=== PATIENT | female | born 1965 | race Caucasian/White ===

== ENCOUNTER 2017-08-28 09:31 | Outpatient (RCR) | payer MEDICAID, SELFPAY ==
--- NOTE | 2017-08-28 10:45 | HP.OTEVAL ---
Patient's Visit Information ALEXEI FOWLER is a 52 year old F, referred to Occupational Therapy by Sofy Richter DO,, with a diagnosis of Left IF laceration. Date of Evaluation: 08/28/17 Occupational Therapist: AISHA Henao/Vern, CHT - Subjective Subjective: Pt states Aug 11 she cut her left IF, she went to the ER and she had 1 stitich - pt states she has decreased sensation and limited ROM -pain is also limiting her. - Pain left IF 3 Pain Intensity Range: 3, 7 - ROM MP: Right IF 0/85 left 0/55 PIP: Right IF 0/100 left 0/45 DIP: Right IF 0/40 left 0/30 - Strength Turret Punch Operator: Right 55# left 30# Lateral Pinch: Right 8# left 4# Tripod Pinch: Right 6# left unable - Sensation Thumb: right 2.83 left 2.83 Index: right 2.83 left 4.08 Middle: right 2.83 left 2.83 Ring: right 2.83 left 2.83 Little: right 2.83 left 2.83 - DASH-Disabilities of Arm, Shoulder& Hand DASH Sum: 57 - Goals Goal:: pt will demo a increase in left outside sales representative insurance strength to 35# or greater to increase her ind with BADLS and IADLS Goal:: pt will demo the ability to form a composite fist for daily occupations by d/c Goal:: pt will report pain no greater than 2/10 with use of left IF for BADSL and IADls - Rehabilitation General Assessment: pt demo with limited left IF ROM and outside sales representative insurance strength for use of left hand for BADls and IADLS. pt would benefit from skilled OT services to return pt to PLOF Rehabilitation Potential: Excellent - Anticipated Interventions Anticipated Interventions: A/AAROM/PROM, Strengthening, Scar Care, Triggerpoint Release, Desensitization, Sensory Retraining, Modalities - Visit Plan Frequency: 1-2x /Week Duration: 6 Weeks General Plan: increase pt ROM and strength to return pt to PLOF TEXT: Thank you for the opportunity to evaluate your patient. For Medicare and Medicare HMO plans, please review the plan of care and approve it. It will need to be FAXED BACK to us at [phone] for Medicare purposes. Please let me know if there are questions or concerns regarding this plan of care. Physician Signature: Date:
--- NOTE | 2017-11-07 14:45 | HP.OT.NRP ---
HP - Discharge Summary - Patient Information ALEXEI FOWLER was seen in my office for initial evaluation on 08/28/17. The following Plan of Care was established for this patient: Initial Frequency: 1-2x /Week Initial Duration: 6 Weeks - Anticipated Interventions Anticipated Interventions: A/AAROM/PROM, Strengthening, Scar Care, Triggerpoint Release, Desensitization, Sensory Retraining, Modalities This patient was last seen in our office 08/28/17. Pertinent comments regarding their Occupational therapy will appear below: pt seen for inital OT visit only- pt did not return for any follow-up apts and has not scheduled. Pt D/C due to non attendance At this point I will be discontinuing this patient from occupational therapy. I would be happy to see this patient again in the future if found appropriate by the physician. Thank you! Rubi Gallego, OTR/L, CHT
== END 2017-08-28 19:00 | disposition home or self-care (01) ==
LOC: OT 09:31
PROVIDERS: Family Provider Family Medicine; PCP Family Medicine; Visit Provider Family Medicine
DX: S61.211D Laceration without foreign body of left index finger without damage to nail, subsequent encounter (principal)
CPT/HCPCS: 97166; G8987; G8988

== ENCOUNTER → 2018-02-12 14:09 | Outpatient (CLI) | payer MEDICAID, SELFPAY ==
[2018-02-12 15:38] LABS: ALB/GLOB Ratio 1.1 RATIO (0.9-2.4); AST(SGOT) 30 U/L (15-37); Alanine Aminotransfer ALT/SGPT 22 U/L (13-56); Albumin, Serum 3.9 g/dL (3.2-5.0); Alkaline Phosphatase 104 U/L (45-117); Anion Gap 9 (5-15); BUN 15 mg/dL (7-18); BUN/Creat Ratio 16.9 RATIO (10-20); Calcium,Total 8.6 mg/dL (8.5-10.1); Chloride 104 mmol/L (98-107); Creatinine, Serum 0.89 mg/dL (0.55-1.02); EST Glomerular Filtration Rate 71 mL/min (>60); Est Glom Filt Rate - Afr Amer 86 mL/min (>60); Globulin 3.6 g/dL (2.2-4.2); Glucose 134 mg/dL (74-106); Potassium 3.6 mmol/L (3.5-5.1); Protein, Total 7.5 g/dL (6.4-8.2); Sodium Level 141 mmol/L (136-145)
== END ==
PROVIDERS: Family Provider Family Medicine; PCP Family Medicine; Visit Provider Family Medicine
DX: E87.5 Hyperkalemia (principal)
CPT/HCPCS: 36415; 80053

== ENCOUNTER 2018-03-03 18:59 | Emergency (ER) | payer MEDICAID, SELFPAY ==
[2018-03-03 19:02] VITALS: BP 105/66; PULSE 94; RESP 22; TEMP 35.6; O2SAT 95; BMI 23.0
--- NOTE | 2018-03-03 19:23 | RAD_ITS ---
XR Chest 1 View INDICATION: PT STATED SHORTNESS OF BREATH COMPARISON: None FINDINGS: Heart size and pulmonary vascularity are within normal limits. The lungs are clear without evidence of airspace consolidation or pleural effusion. The osseous structures are grossly unremarkable. RAD/Chest 1 View (Portable) IMPRESSION: No radiographic evidence of acute intrathoracic disease. at 2012 Reported and signed by: Lurdes Hurst MD Electronically Signed: Lurdes Hurst MD at 20:11 EDT Tel , Service support ,
--- NOTE | 2018-03-03 19:23 | EKG12_ITS ---
Test Reason : SOB Blood Pressure : / mmHG Vent. Rate : 074 BPM Atrial Rate : 074 BPM P-R Int : 104 ms QRS Dur : 068 ms QT Int : 388 ms P-R-T Axes : 066 068 074 degrees QTc Int : 430 ms Sinus rhythm with short NC Otherwise normal ECG Confirmed by ANDREA PALMER, NICOLETTE ([id number]), editor newspaper TOD CORADO ([id number]) on 03/06/2018 2:47:06 PM Referred By: ADRIEN Confirmed By:NICOLETTE MENDEZ MD
[2018-03-03 19:30] VITALS: PULSE 79; RESP 16
[2018-03-03] MEDS: Ipratropium/Albuterol Sulfate 3 ML AMPUL.NEB INHALATION (19:30)
[2018-03-03] MEDS: Albuterol 2.5 MG/3 ML VIAL.NEB. INHALATION ×3 (19:30)
[2018-03-03] MEDS: MethylPREDNISolone 125 MG/2 ML Vial IV (19:32)
[2018-03-03 19:35] VITALS: BP 96/63; PULSE 85; RESP 16; O2SAT 96
[2018-03-03 20:08] LABS: Absolute Lymphocyte Count 4.37 X10^3/ul (0.83-4.51); Absolute Neutrophil Count 2.8 X10^3/uL (2.0-7.7); Basophil# 0.08 X10^3/uL; Eosinophil# 0.26 X10^3/uL; Eosinophils% 3.3 % (0-5); Hematocrit 42.6 % (37-47); Hemoglobin 14.4 g/dl (12.0-15.0); Lymphocyte # 4.37 X10^3/ul (4.0); Mean Corp Hgb Conc 33.8 g/gl (32-36); Mean Corpuscular Hgb 32.1 pg (27.0-32.0); Mean Corpuscular Volume 94.9 fL (81-99); Mean Platelet Vol. 11.9 fl (6.2-12.0); Monocyte# 0.46 X10^3/uL; Monocyte% 5.8 % (0-10); Neutrophil # 2.75 X10^3/uL (2.7-7.7); Neutrophil % 34.6 % (47-70); Platelet Count 226 K/mm3 (150-450); RBC Distribution Width CV 11.8 % (11.6-14.6); RBC Distribution Width SD 40.7 fl (35.1-43.9); Red Blood Count 4.49 M/mm3 (4.2-5.4); White Blood Count 7.9 K/mm3 (4.4-11.0)
[2018-03-03 20:10] LABS: POSITIVE COUNT NO; POSITIVE DIFFERENTIAL NO
[2018-03-03 20:11] LABS: POSITIVE MORPHOLOGY NO
[2018-03-03 20:15] LABS: Anion Gap 4 (5-15); BUN 24 mg/dL (7-18); BUN/Creat Ratio 23.1 RATIO (10-20); Calcium,Total 8.4 mg/dL (8.5-10.1); Chloride 106 mmol/L (98-107); Creatinine, Serum 1.04 mg/dL (0.55-1.02); EST Glomerular Filtration Rate 59 mL/min (>60); Est Glom Filt Rate - Afr Amer 72 mL/min (>60); Estimated Creatinine Clearance 52.34 ml/min; Glucose 76 mg/dL (74-106); Potassium 3.8 mmol/L (3.5-5.1); Sodium Level 141 mmol/L (136-145)
--- NOTE | 2018-03-03 20:22 | ED.DCSUM_ITS ---
- ER Visit Summary Date of Service: 03/03/18 Chief Complaint: Shortness of breath History of Present Illness: The patient is a 53 F he has been short of breath for 6 days. She has history of COPD. She has had a cough is been productive of the sputum. She has had rhinorrhea. She has pain in the lower parts of her chest from all of the coughing. She denies fevers. She does not wear home oxygen. She took a couple leftover steroid pills been on the full dose. She has been using her nebulizers at home. Physical Examination: Vital signs reviewed. HEENT exam unremarkable. Heart is regular rate and rhythm without murmurs. Lungs have diffuse respiratory and expiratory wheezing. Abdomen is soft and nontender. Extremities reveal no edema. Skin exam normal. Neurologic exam normal. Test Results: EKG is normal sinus rhythm. Labs are unremarkable. Chest x-ray reveals her chronic changes Emergency Department Course and Treatment: Patient was given albuterol and DuoNeb treatments. She was also given prednisone. Upon reevaluation she feels improved. She will be discharged home with prednisone. She has nebulizers. She will follow-up with her PCP Treatment Plan: [] Disposition: Discharge Impression: COPD exacerbation This note was generated with [employer] dictation software. It may contain incorrect words, spelling, and punctuation that were not noted in review of the chart prior to signing ED Disposition - Plan for ED Patient: Chief Complaint: Shortness of Breath Referrals: Sofy Richter DO [Primary Care Provider] -
--- NOTE | 2018-03-03 20:22 | ED.DEP ---
ED Disposition - Plan for ED Patient: Disposition: Home or Assisted Living Chief Complaint: Shortness of Breath Instructions: ED COPD Flare Prescriptions: Prednisone [Deltasone] 60 mg PO DAILY #12 tab Referrals: Sofy Richter DO [Primary Care Provider] -
[2018-03-03 20:37] VITALS: BP 98/49; PULSE 82; RESP 22; O2SAT 97
--- NOTE | 2018-03-03 20:42 | ED.RN ---
THIS NURSE REVIEWED D/C INSTRUCTIONS WITH PT. PT VERBALIZED UNDERSTANDING OF INSTRUCTIONS. IV D/C. IV CATHETER INTACT. PT TOLERATED WELL. PT DENIES FURTHER NEEDS OR QUESTIONS AT THIS TIME. PT AMBULATES FROM ROOM ON OWN WITHOUT ASSISTANCE FROM STAFF
== END 2018-03-03 20:42 | disposition home or self-care (01) ==
PROVIDERS: Emergency Provider Emergency Medicine; Family Provider Family Medicine; PCP Family Medicine
DX: J44.1 Chronic obstructive pulmonary disease with (acute) exacerbation (principal); E78.00 Pure hypercholesterolemia, unspecified; E03.9 Hypothyroidism, unspecified; Z72.0 Tobacco use; F31.9 Bipolar disorder, unspecified
CPT/HCPCS: 71045; 80048; 84484; 85025; 93005; 94640; 99285; A4216

== ENCOUNTER 2018-04-15 16:40 | Inpatient (IN) | payer MEDICAID, SELFPAY ==
[2018-04-15] VITALS (19 sets, daily range): BP systolic 92–135; BP diastolic 55–117; PULSE 97–149; RESP 12–29; TEMP 37.2–38.2; O2SAT 65–100; BMI 22.6; BMI 23.3
--- NOTE | 2018-04-15 16:45 | RAD_ITS ---
STUDY: X-RAY CHEST REASON FOR EXAM: Female, 53 years old. Shortness of breath TECHNIQUE: Frontal view of the chest COMPARISON: 03/03/2018 FINDINGS: There is airspace opacity in the lower lobes, left greater than right. This is likely infectious in etiology. There are no pleural effusions. There is no pneumothorax. The heart is normal in size. The visualized osseous structures are within normal limits. RAD/Chest 1 View (Portable) IMPRESSION: Airspace opacity in the lower lobes, left greater than right. This is likely infectious in etiology. Electronically Signed: Terrence Lemon, at 17:47 EDT Tel , Service support ,
--- NOTE | 2018-04-15 16:50 | EKG12_ITS ---
Test Reason : SOB Blood Pressure : / mmHG Vent. Rate : 117 BPM Atrial Rate : 117 BPM P-R Int : 130 ms QRS Dur : 076 ms QT Int : 324 ms P-R-T Axes : 079 043 067 degrees QTc Int : 451 ms Sinus tachycardia Nonspecific ST abnormality Abnormal ECG Confirmed by ANDREA PALMER, NICOLETTE ([id number]), industrial editor TOD CORADO ([id number]) on 04/18/2018 1:25:12 PM Referred By: CRAIG Confirmed By:NICOLETTE MENDEZ MD
[2018-04-15] MEDS: Ipratropium/Albuterol Sulfate 3 ML AMPUL.NEB INHALATION ×2 (17:02→23:00)
[2018-04-15] MEDS: Albuterol 2.5 MG/3 ML VIAL.NEB. INHALATION ×4 (17:05→21:02)
[2018-04-15 17:10] LABS: Allen Test POS; Base Excess 2 mmol/L (-2 to +2); Bicarbonate 27.9 mmol/L (22-26); Blood Gas Specimen Type ART; O2 Delivery Device NRB Mask; PO2 109 mmHG (75-100); SITE R Radial; SO2 98 % (95-99); Time Given 1655; Total Carbon Dioxide 29 mmol/L; pCO2 50.3 mmHg (35-45); pH 7.35 (7.35-7.45)
[2018-04-15 17:19] LABS: Absolute Lymphocyte Count 0.94 X10^3/ul (0.83-4.51); Absolute Neutrophil Count 5.1 X10^3/uL (2.0-7.7); Basophil# 0.03 X10^3/uL; Basophil% 0.4 % (0-1); Hematocrit 38.6 % (37-47); Hemoglobin 12.7 g/dl (12.0-15.0); Lymphocyte # 0.94 X10^3/ul (4.0); Lymphocyte % 14.1 % (19-41); Mean Corp Hgb Conc 32.9 g/gl (32-36); Mean Corpuscular Hgb 31.1 pg (27.0-32.0); Mean Corpuscular Volume 94.4 fL (81-99); Mean Platelet Vol. 11.2 fl (6.2-12.0); Monocyte# 0.62 X10^3/uL; Monocyte% 9.3 % (0-10); Neutrophil # 5.06 X10^3/uL (2.7-7.7); Neutrophil % 75.6 % (47-70); Platelet Count 196 K/mm3 (150-450); RBC Distribution Width CV 12.6 % (11.6-14.6); RBC Distribution Width SD 43.3 fl (35.1-43.9); Red Blood Count 4.09 M/mm3 (4.2-5.4); White Blood Count 6.7 K/mm3 (4.4-11.0)
[2018-04-15 17:24] LABS: Differential Indicated SCAN CRITERIA MET; POSITIVE COUNT NO; POSITIVE DIFFERENTIAL NO; POSITIVE MORPHOLOGY YES
[2018-04-15 17:37] LABS: Anisocytosis RARE; Macrocytosis RARE; Platelet Estimate ADEQUATE (ADEQ)
--- NOTE | 2018-04-15 17:53 | ED.VISSUMM ---
- ER Visit Summary Date of Service: 04/15/18 Chief Complaint: Decreased level of consciousness, cough difficulty breathing History of Present Illness: The patient is a 53 F with multiple medical problems who was recently admitted to the hospital for exacerbation of COPD. She is oxygen dependent at 4 L by nasal cannula. History is limited secondary to decompressed mental status and respiratory distress. She nods yes to cough. She nods yes to fever. She nodded no to chest pain. She nodded no to history of PE or DVT. Review of prior records indicates patient has history of hyperglycemia, GERD, COPD, hypothyroidism, diverticulitis and bipolar affective disorder. She is status post appendectomy cholecystectomy and oophorectomy uncertain hysterectomy. Physical Examination: Patient is tachycardic tachypneic and hypoxic. She is not alert she is not oriented. Head is atraumatic nor cephalic. Pupils equal round reactive. Extra muscle intact. Sclerae anicteric. Posterior pharynx without erythema XA. Uvula midline. Mucosa is dry. Trach is midline. There is no stridor. There is minimal air movement with high-pitched wheezing noted. Heart is rapid and regular. Abdomen is soft nontender. She moves extremities to tactile stimulus. With tactile stimulus and telling her to perform simple tasks she will perform them. There is no clonus or Babinski sign. Patient was placed on BiPAP after review of her ABG. In spite of BiPAP she is more somnolent. Concern for airway management and increased CO2 retention. Test Results: EKG reveals a sinus tachycardia with nonspecific ST-T wave changes which are new from prior. Heart rate 117. HI interval is 130 ms and QRS complex duration is 76 ms. QT interval is normal. Portable chest x-ray interpreted by me as bilateral interstitial pneumonia. White count is normal with 76 segs. ABG reveals CO2 retention with significant AA gradient. Emergency Department Course and Treatment: IV was established. She was treated with DuoNeb and albuterol. After review of chest x-ray she was treated with levofloxacin and Azactam based on her allergies and severity of her reactions. Because patient has become more somnolent on BiPAP will intubate to protect her airway. Treatment Plan: Treat for severe sepsis with bilateral pneumonia and intubation. Since patient has hypokalemia we will treat with IV potassium. Since troponin is elevated and she does have new ST-T wave changes she will receive 300 mg aspirin rectally by suppository. Since patient was medically paralyzed with rocuronium she was placed on a propofol drip. Dr. Merino who is on-call for cardiology was paged to inform him of patient. Dr. Rubio was paged as the hospitalist since she will require admission to ICU. Procedure: 1. Oral tracheal intubation 7.5 endotracheal tube via RSI 2. Orogastric tube placement per ED physician 3. Maza per nursing staff 4. Critical care time 39 minutes Disposition: Admit ICU critical condition Impression: 1. Respiratory failure with hypercapnia and hypoxia 2. Bilateral interstitial pneumonia 3. Severe sepsis 4. Exacerbation of COPD with bronchospasm 5. Sinus tachycardia documented on EKG 6. NSTEMI 7. Hypokalemia This note was generated with [employer] dictation software. It may contain incorrect words, spelling, and punctuation that were not noted in review of the chart prior to signing ED Disposition - Plan for ED Patient: Chief Complaint: Shortness of Breath Referrals: Sofy Richter DO [Primary Care Provider] -
[2018-04-15 17:59] LABS: Anion Gap 13 (5-15); BUN 20 mg/dL (7-18); BUN/Creat Ratio 34.5 RATIO (10-20); Calcium,Total 8.7 mg/dL (8.5-10.1); Chloride 97 mmol/L (98-107); Creatinine, Serum 0.58 mg/dL (0.55-1.02); EST Glomerular Filtration Rate 116 mL/min (>60); Est Glom Filt Rate - Afr Amer 140 mL/min (>60); Estimated Creatinine Clearance 97.98 ml/min; Glucose 122 mg/dL (74-106); Potassium 2.9 mmol/L (3.5-5.1); Sodium Level 139 mmol/L (136-145)
[2018-04-15 18:00] LABS: Lactic Acid 2.1 mmol/L (0.4-2.0)
[2018-04-15] MEDS: Etomidate 20 MG/10 ML Vial 10 MG IV (18:01)
[2018-04-15] MEDS: Rocuronium Bromide 50 MG/5 ML Vial IV (18:01)
--- NOTE | 2018-04-15 18:07 | NURSING ---
DR MARQUEZ PAGED
--- NOTE | 2018-04-15 18:10 | RAD_ITS ---
STUDY: X-RAY CHEST REASON FOR EXAM: Female, 53 years old. Tube placement. TECHNIQUE: Single AP portable view of the chest. COMPARISON: Earlier the same day. FINDINGS: Endotracheal tube, 2 cm above the milka. Feeding tube extends to the stomach in the left upper quadrant. There are monitoring devices. There is hyperinflation of the lungs consistent with chronic obstructive lung disease (COPD). There are lower lung opacities on the left more than the right. There is no demonstrated pleural abnormality. Normal size heart. Normal mediastinum and ashli. Normal visualized pulmonary arteries. Normal visualized aortic arch and descending thoracic aorta. Normal visualized thoracic spine. Normal visualized ribs, clavicles, and shoulders. There is no demonstrated abnormality of the visualized soft tissue structures of the upper abdomen. RAD/Chest 1 View (Portable) IMPRESSION: Endotracheal tube and feeding tube placement. Bilateral infiltrates or edema. Electronically Signed: Elias Paulino MD at 19:29 EDT , Service support ,
[2018-04-15] MEDS: MethylPREDNISolone 125 MG/2 ML Vial 60 MG IV (18:11)
[2018-04-15] MEDS: Propofol 10MG/Ml 1,000 MG/100 ML Bottle 1.794 MG CONT INF ×2 (18:13→21:43)
--- NOTE | 2018-04-15 18:15 | NURSING ---
DR MARQUEZ RETURNED PAGED DR TIMMONS IN ER
--- NOTE | 2018-04-15 18:15 | NURSING ---
ANTIBIOTICS ADMINISTRATION LATE DUE TO PATIENTS DETERIORATING STATUS AND INTUBATION. SEDATION MEDICATIONS BEING GIVEN IN ONLY IV, SECOND IV IS BEING ATTEMPTED AND WILL THEN BE USED FOR ANTIBIOTICS.
[2018-04-15] MEDS: Aspirin 300 MG Suppository RECTAL (18:18)
--- NOTE | 2018-04-15 18:21 | NURSING ---
ICU RESP FAILURE, CHRISSY PNEUMONIA, SEVERE SEPSIS, NSTEMI SHANELLE
[2018-04-15 18:23] LABS: Squamous Epithelial Cells - UA 0 SEEN /hpf (5-10)
[2018-04-15 18:35] LABS: Color, Urine Yellow (Yellow); Glucose, Dipstick Normal (Normal); Leukocyte Esterase-Dipstick Negative /ul (Negative); Nitrite-Dipstick Negative (Negative); Occult Blood-Urine 150 /ul (Negative); Protein-Dipstick 100 mg/dl (Negative); Specific Gravity, Urine 1.025 (1.002-1.030); Urine Bilirubin Dipstick Negative (Negative); Urine Clarity Clear (Clear); Urine Urobilinogen Normal (Normal)
[2018-04-15 18:40] LABS: Ketone-Dipstick 150 mg/dl (Negative)
[2018-04-15] MEDS: Propofol 200 MG/20 ML Vial 40 MG IV BOLUS (18:41)
[2018-04-15] MEDS: Metoprolol Tartrate 5 MG/5 ML Vial IV (18:44)
[2018-04-15 18:45] LABS: Amorphous Sediment 1+; Bacteria RARE /hpf (None Seen); Mucous, Urine 1+ /hpf (<or=2+)
[2018-04-15 18:47] LABS: Red Blood Cells-Urine 0-5 SEEN /hpf (0-5); White Blood Cells 0-5 SEEN /hpf (0-5)
--- NOTE | 2018-04-15 18:52 | NURSING ---
received paper report 184 called down to ER at 1850 spoke with Sabiha MARQUEZ RN let her know patient can come up to ICU whenever she is ready, she stated they were stabilizing the patient and then would call before they brought her up.
--- NOTE | 2018-04-15 18:57 | HP.PCM_ITS ---
Problem List (1) Acute on chronic respiratory failure with hypoxia and hypercapnia Status: Acute (2) Multifocal possible HCAP Status: Acute (3) Elevated troponin Status: Acute (4) Tobacco dependency Status: Chronic (5) Hypersomnia Status: Chronic (6) History of cholecystectomy Status: Resolved (7) History of appendectomy Status: Resolved (8) History of dilatation and curettage Status: Resolved (9) History of left oophorectomy Status: Resolved (10) History of section Status: Resolved (11) Urinary incontinence Status: Chronic (12) Back pain Status: Chronic (13) Neck pain Status: Chronic (14) GERD (gastroesophageal reflux disease) Status: Chronic (15) Temporomandibular joint (TMJ) pain Status: Chronic (16) COPD (chronic obstructive pulmonary disease) Status: Chronic (17) Mitral valve prolapse Status: Chronic (18) Bipolar disorder Status: Chronic (19) Hypokalemia Status: Chronic (20) Hypoglycemia Status: Chronic (21) Hypothyroidism Status: Chronic (22) History of diverticulitis Status: Acute History of Present Illness Date of Admission: 04/15/18 Chief Complaint: Short of breath, confusion and decreased level of consciousness The patient is a 53 year old F with multiple comorbidities, predominantly COPD on 4 L of home oxygen, recently was admitted in [facility] from last week, to Sunday was brought in to ER by ambulance for shortness of breath, cough and decreased level of consciousness. Before I saw the patient, patient was intubated for respiratory failure and decreased level of consciousness. As per ER physician, Dr. Kaplan she nods yes to cough, fever but no chest pain. As per the son who is near the bedside said she was having fever with chills and did not look good like short of breath and pale looking when she was discharged yesterday. In ED, her vitals were heart rate 136, respiratory 27 pulse ox 98% on nonrebreather after that she was put on BiPAP but subsequently she was intubated because of respiratory failure and somnolence Her basic blood work shows hypokalemia, K2.9, troponin I 0.08. CBC normal WBC count. UA is pending. Chest x-ray shows bilateral lower lobes infiltrate, left more than right. EKG shows sinus tachycardia at 117 bpm. While seeing the patient along with laborer mine, patient had runs of SVT with heart rate went up 148/min and metoprolol for NV he was ordered. she was following her laborer mine Dr. Omer for mitral valve prolapse. . Her son denies any history of cardiac stent or NV. [] Past Medical History Past Medical History (Chronic Problems): Chronic Problems (Last Reviewed 12/13/17 @ 07:47 by Vanessa Zamora) Tobacco dependency (Chronic) Hypersomnia (Chronic) Urinary incontinence (Chronic) Back pain (Chronic) Neck pain (Chronic) GERD (gastroesophageal reflux disease) (Chronic) Temporomandibular joint (TMJ) pain (Chronic) COPD (chronic obstructive pulmonary disease) (Chronic) Mitral valve prolapse (Chronic) Bipolar disorder (Chronic) Hypokalemia (Chronic) Hypoglycemia (Chronic) Hypothyroidism (Chronic) Medical History: Medical History (Last Reviewed 12/13/17 @ 07:47 by Vanessa Zamora) Urinary incontinence (Chronic) R32 Back pain (Chronic) M54.9 Neck pain (Chronic) M54.2 GERD (gastroesophageal reflux disease) (Chronic) K21.9 Temporomandibular joint (TMJ) pain (Chronic) M26.629 COPD (chronic obstructive pulmonary disease) (Chronic) J44.9 Mitral valve prolapse (Chronic) I34.1 Bipolar disorder (Chronic) F31.9 Hypokalemia (Chronic) E87.6 Hypoglycemia (Chronic) E16.2 Hypothyroidism (Chronic) E03.9 History of diverticulitis (Acute) Z87.19 Allergies amoxicillin Allergy (Severe, Verified 10/26/17 07:16) Shortness of breath AND HIVES azithromycin Allergy (Severe, Verified 10/26/17 07:17) Shortness of breath AND HIVES clindamycin Allergy (Severe, Verified 10/26/17 07:20) Shortness of breath AND HIVES doxycycline Allergy (Severe, Verified 10/26/17 07:20) Shortness of breath AND HIVES erythromycin lactobionate [From Erythrocin] Allergy (Severe, Verified 10/26/17 07:20) Shortness of breath AND HIVES Penicillins Allergy (Severe, Verified 10/26/17 07:20) Shortness of breath AND HIVES Sulfa (Sulfonamide Antibiotics) Allergy (Severe, Verified 10/26/17 07:20) Shortness of breath AND HIVES sulfamethoxazole [From Bactrim] Allergy (Severe, Verified 10/26/17 07:20) Shortness of breath AND HIVES trimethoprim [From Bactrim] Allergy (Severe, Verified 10/26/17 07:20) Shortness of breath AND HIVES tramadol Allergy (Verified 10/23/17 16:51) Unknown codeine [From Tylenol-Codeine #3] Adverse Reaction (Verified 10/23/17 16:51) Nausea/Vom/Diarrhea terbutaline [From Brethine] Adverse Reaction (Verified 10/23/17 16:51) Other ANITHISTAMINES Allergy (Uncoded 10/23/17 16:51) Unknown Home Medications: Ambulatory Orders Medication Instructions Recorded Atenolol [Tenormin (beta Manuel)] 25 mg PO BID 06/23/14 Diazepam [Valium] 5 mg PO BID 06/23/14 Lamotrigine [Lamictal] 200 mg PO BID 06/23/14 Rosuvastatin Calcium [Crestor] 40 mg PO QHS 06/23/14 Ranitidine [Zantac] 150 mg PO BID PRN PRN 02/27/16 Acetaminophen/Butalbital/Caffe 1 tablet PO Q4H PRN PRN 10/23/17 [Fioricet] proMETHazine tablet [Phenergan] 25 mg PO Q4H PRN PRN 10/23/17 levothyroxine 125 mcg tablet 125 mcg PO DAILY 11/08/17 Prednisone [Deltasone] 60 mg PO DAILY #12 tab 03/03/18 Albuterol Aerosols [Ventolin 2.5 mg INHALATION Q4H PRN PRN 04/15/18 Aerosols] Albuterol Inhaler [Ventolin Hfa] 1 - 2 puff INHALATION Q4H PRN PRN 04/15/18 Fluoxetine [Prozac] 20 mg PO .COMPLEX 04/15/18 Surgical History: Surgical History (Last Reviewed 12/13/17 @ 07:47 by Vanessa Zamora) History of cholecystectomy (Resolved) Z98.890, Z90.49 History of appendectomy (Resolved) Z98.890, Z90.49 History of dilatation and curettage (Resolved) Z98.890 History of left oophorectomy (Resolved) Z98.890, Z90.721 History of section (Resolved) Z98.891 Surgical History: - - Emergency 1993 Left ovary follapian tube and ovary removed 1998 Throat biopsy: benign 1999 Hydrothermal ablation and D&C 2004 Emergency appendectomy 2008 Cholecystectomy lap 2002 Smoking Status: Former smoker - *Family History Paternal Family History: Family History (Last Reviewed 12/13/17 @ 07:47 by Vanessa Zamora) Mother Hypertension Pulmonary embolism Psychiatric care Father Lung cancer Grandmother Breast cancer Sister Asthma Seizures Psychiatric care Depression Son Depression Psychiatric care ADHD Daughter Depression Psychiatric care Bipolar 1 disorder History Items: Hypertension Review of Systems Constitutional: Reports: Chills, Fever Respiratory: Reports: Shortness of Breath Neurological: Reports: Confusion Unable to obtain accurate/complete ROS d/t: Patient was decreased LOC and then intubated VTE Information - Inpt Only VTE Present on Admission: No VTE Mechan Device Prophylaxis: SCD's VTE Pharm Prophylaxis ordered?: Yes Patient Problems: Active and Suspected Problems (Last Reviewed 12/13/17 @ 07:47 by Vanessa Zamora ) Acute on chronic respiratory failure with hypoxia and hypercapnia (Acute) Multifocal possible HCAP (Acute) Elevated troponin (Acute) - Physical Exam General: Lethargic, - - Initially, altered mental status, somnolent and then intubated HEENT: Atraumatic, PERRLA, EOMI, Normocephalic Oral: - - ET and OG tube Neck: Supple, No JVD, Negative Carotid Bruits Lungs: Diminished, - - On mechanical ventilator Cardiovascular: Regular rate, Normal S1, Normal S2, No murmurs, Tachycardic Abdomen: Bowel Sounds Present, Soft, Non Tender, Hypoactive Bowel Sounds Extremities: No edema, Capillary Refill Less than 3 Seconds Skin: No rashes, No breakdown Musculoskeletal: Muscle Wasting Neurological: - - Cannot assess neurologically because patient is intubated and sedated Vital Signs Temp Pulse Resp BP Pulse Ox 99.3 F H 149 H 15 135/117 H 100 04/15/18 16:42 04/15/18 18:10 04/15/18 18:10 04/15/18 18:00 04/15/18 18:10 Oxygen Flow Rate (L/min) 15 Oxygen Delivery Method Mechanical Ventilator Weight: 131 lb 13.383 oz Body Mass Index (BMI) 22.6 Laboratory Tests Past 24 Hrs 04/15/18 04/15/18 04/15/18 16:50 16:50 16:50 WBC 6.7 RBC 4.09 L Hgb 12.7 Hct 38.6 MCV 94.4 MCH 31.1 MCHC 32.9 RDW 12.6 RDW Differential 43.3 Plt Count 196 MPV 11.2 Immature Gran % (Auto) 0.600 Neut % (Auto) 75.6 H Lymph % (Auto) 14.1 L Parke % (Auto) 9.3 Eos % (Auto) 0.0 Baso % (Auto) 0.4 Absolute Neuts (auto) 5.1 Absolute Lymphs (auto) 0.94 Total Counted Not Reportable Diff Path Review May foll Platelet Estimate ADEQUATE Anisocytosis RARE Macrocytosis RARE Specimen Type Sample Site pH Bicarbonate Actual POC Total CO2 Base Excess O2 Saturation ABG pCO2 ABG pO2 Yvan Test O2 Delivery Device Liter Flow Blood Gas Notified Whom Blood Gas Notified Time Sodium 139 Potassium 2.9 L Chloride 97 L Carbon Dioxide 29.0 Anion Gap 13 BUN 20 H Creatinine 0.58 Estim Creat Clear Calc 97.98 Est GFR (MDRD) Af Amer 140 Est GFR (MDRD) Non-Af 116 BUN/Creatinine Ratio 34.5 H Glucose 122 H Lactic Acid 2.1 H Calcium 8.7 Troponin I 1.080 H* Urine Color Urine Clarity Urine pH Ur Specific Hamilton Urine Protein Urine Glucose (UA) Urine Ketones Urine Occult Blood Urine Nitrite Urine Bilirubin Urine Urobilinogen Ur Leukocyte Esterase Urine RBC Urine WBC Ur Squamous Epith Cells Urine Bacteria Urine Mucus 04/15/18 04/15/18 17:04 18:15 WBC RBC Hgb Hct MCV MCH MCHC RDW RDW Differential Plt Count MPV Immature Gran % (Auto) Neut % (Auto) Lymph % (Auto) Parke % (Auto) Eos % (Auto) Baso % (Auto) Absolute Neuts (auto) Absolute Lymphs (auto) Total Counted Diff Path Review Platelet Estimate Anisocytosis Macrocytosis Specimen Type ART Sample Site R Radial pH 7.35 Bicarbonate Actual 27.9 H POC Total CO2 29 Base Excess 2 O2 Saturation 98 ABG pCO2 50.3 H ABG pO2 109 H Yvan Test POS O2 Delivery Device NRB Mask Liter Flow 15.0 Blood Gas Notified Whom ED Blood Gas Notified Time 1655 Sodium Potassium Chloride Carbon Dioxide Anion Gap BUN Creatinine Estim Creat Clear Calc Est GFR (MDRD) Af Amer Est GFR (MDRD) Non-Af BUN/Creatinine Ratio Glucose Lactic Acid Calcium Troponin I Urine Color Yellow Urine Clarity Clear Urine pH 6.0 Ur Specific Hamilton 1.025 Urine Protein 100 H Urine Glucose (UA) Normal Urine Ketones 150 H Urine Occult Blood 150 H Urine Nitrite Negative Urine Bilirubin Negative Urine Urobilinogen Normal Ur Leukocyte Esterase Negative Urine RBC Pending Urine WBC Pending Ur Squamous Epith Cells Pending Urine Bacteria Pending Urine Mucus Pending Assessment/Plan All Active Problems (Last Reviewed 12/13/17 @ 07:47 by Vanessa Zamora) Acute on chronic respiratory failure with hypoxia and hypercapnia (Acute) Multifocal possible HCAP (Acute) Elevated troponin (Acute) History of cholecystectomy (Resolved) History of appendectomy (Resolved) History of dilatation and curettage (Resolved) History of left oophorectomy (Resolved) History of section (Resolved) History of diverticulitis (Acute) The patient is a 53 year old F with multiple comorbidities, predominantly COPD on 4 L of home oxygen, recently was admitted in [facility] from last week, to Sunday was brought in to ER by ambulance for shortness of breath, cough and decreased level of consciousness. Before I saw the patient, patient was intubated for respiratory failure and decreased level of consciousness. As per ER physician, Dr. Kaplan she nods yes to cough, fever but no chest pain. As per the son who is near the bedside said she was having fever with chills and did not look good like short of breath and pale looking when she was discharged yesterday. In ED, her vitals were heart rate 136, respiratory 27 pulse ox 98% on nonrebreather after that she was put on BiPAP but subsequently she was intubated because of respiratory failure and somnolence Her basic blood work shows hypokalemia, K2.9, troponin I 0.08. CBC normal WBC count. UA is pending. Chest x-ray shows bilateral lower lobes infiltrate, left more than right. EKG shows sinus tachycardia at 117 bpm. While seeing the patient along with laborer mine, patient had runs of SVT with heart rate went up 148/min and metoprolol for NV he was ordered. she was following her laborer mine Dr. Omer for mitral valve prolapse. Her son denies any history of cardiac stent or NV. 1. Acute on chronic combined hypercarbic respiratory failure most probably secondary to multifocal pneumonia/COPD exacerbation: Patient is being admitted in ICU on ventilator. Repeat ABG and adjust the setting of ventilator accordingly. Patient intubated with 7.5 millimeters ET tube. Currently on 50% FiO2/450 mL/14/5. Aeronautical Engineer consult. Patient is on Diprivan drip. Fentanyl drip added. 2. Severe sepsis (fever, T 100.8 Fahrenheit, tachycardia, hypoxia and tachypnea and lactic acidosis) secondary to bilateral lower lobes, multifocal, probably healthcare associated pneumonia: Patient has multiple antibiotic allergies, therefore started on IV aztreonam and Levaquin in ER. Vancomycin added. Pneumonia workup including urinary antigen, sputum culture, blood culture. Lactic acid is mildly elevated 2.1. Repeat chest x-ray portable tomorrow a.m. 3. Elevated troponin, possible due to demand ischemia or NSTEMI: Serial troponin enzymes. Cardiology has been consulted. 2D echo ordered. On aspirin and a statin. FLP ordered tomorrow a.m. Sinus tachycardia with transient PSVT; exact etiology unclear but possible secondary to severe sepsis: 5 mg IV metoprolol was given. 4. Decreased level of consciousness, acute encephalopathy most probably secondary to metabolic/infectious etiology: Currently patient is sedated on ventilator. Treat the underlying disorder. 5. COPD possible acute exacerbation: Bronchodilator. IV Solu-Medrol. Chest physiotherapy. Other comorbidities include nicotine dependence, GERD, mitral valve prolapse, bipolar disorder, chronic urinary incontinence and nicotine dependency: Multiple comorbidities complicates the present care and expect difficult and prolonged recovery Prognosis guarded: This note was generated with Digital[employer]ision dictation software. Every effort was made to ensure accuracy, however computerized pecan sheller mistakes may persist. Total critical time spent in H&P including examination, review of imaging test and lab, plan of management, and discussion with the son in ER: 60 minutes Laboratory Results 04/15/18 16:50: WBC 6.7, RBC 4.09 L, Hgb 12.7, Hct 38.6, MCV 94.4, MCH 31.1, MCHC 32.9, RDW 12.6, RDW Differential 43.3, Plt Count 196, MPV 11.2, Immature Gran % (Auto) 0.600, Neut % (Auto) 75.6 H, Lymph % (Auto) 14.1 L, Parke % (Auto) 9.3, Eos % (Auto) 0.0, Baso % (Auto) 0.4, Absolute Neuts (auto) 5.1, Absolute Lymphs (auto) 0.94, Total Counted Not Reportable, Diff Path Review May foll, Platelet Estimate ADEQUATE, Anisocytosis RARE, Macrocytosis RARE 04/15/18 16:50: Sodium 139, Potassium 2.9 L, Chloride 97 L, Carbon Dioxide 29.0 , Anion Gap 13, BUN 20 H, Creatinine 0.58, Estim Creat Clear Calc 97.98, Est GFR (MDRD) Af Amer 140, Est GFR (MDRD) Non-Af 116, BUN/Creatinine Ratio 34.5 H, Glucose 122 H, Calcium 8.7, Troponin I 1.080 H* 04/15/18 16:50: Lactic Acid 2.1 H 04/15/18 17:04: Specimen Type ART, Sample Site R Radial, pH 7.35, Bicarbonate Actual 27.9 H, POC Total CO2 29, Base Excess 2, O2 Saturation 98, ABG pCO2 50.3 H, ABG pO2 109 H, Yvan Test POS, O2 Delivery Device NRB Mask, Liter Flow 15.0, Blood Gas Notified Whom ED MD, Blood Gas Notified Time 1655 04/15/18 18:15: Urine Color Yellow, Urine Clarity Clear, Urine pH 6.0, Ur Specific Hamilton 1.025, Urine Protein 100 H, Urine Glucose (UA) Normal, Urine Ketones 150 H, Urine Occult Blood 150 H, Urine Nitrite Negative, Urine Bilirubin Negative, Urine Urobilinogen Normal, Ur Leukocyte Esterase Negative, Urine RBC 0-5 SEEN, Urine WBC 0-5 SEEN, Ur Squamous Epith Cells 0 SEEN, Amorphous Sediment 1+, Urine Bacteria RARE, Urine Mucus 1+ Clinical Impression(s) from Imaging Studies Chest X-Ray 04/15/18 16:45 IMPRESSION: Airspace opacity in the lower lobes, left greater than right. This is likely infectious in etiology. Chest X-Ray 04/15/18 18:10 IMPRESSION: Endotracheal tube and feeding tube placement. Bilateral infiltrates or edema. Code Visit Inpatient E&M: 78032 Init Hosp L3
--- NOTE | 2018-04-15 19:00 | ECHOD_ITS ---
Reason For Study: DYSPNEA/SOB Procedure This was a 2D Doppler, Color Flow transthoracic echocardiogram. Technically difficult study due to pt being in supine position on ventilator. Exam performed portable in ICU/CCU. Left Ventricle Normal LV size. No evidence for diastolic dysfunction. The estimated ejection fraction is 50 %. No regional wall motion abnormalities noted. Right Ventricle Normal RV size. Abnormal right ventricular diastolic function. There are regional wall motion abnormalities. Atria Normal left atrium. Normal right atrium. Mitral Valve Normal mitral valve. Tricuspid Valve Normal tricuspid valve. Mild tricuspid valve insufficiency. Pulmonary artery systolic pressure is 28 mmHg. Aortic Valve Normal aortic valve. Pulmonic Valve The pulmonic valve is not well visualized. Great Vessels Normal aortic root. The pulmonary artery is normal size. Normal inferior vena cava. Pericardium/Pleural No pericardial effusion. MMode/2D Measurements & Calculations LVIDd: 4.0 cm IVSd: 0.66 cm Ao root diam: 2.6 cm LVIDs: 2.8 cm LVPWd: 0.86 cm LA dimension: 2.5 cm RVDd: 3.7 cm FS: 28.9 % LAV(MOD-bp): 20.7 ml LA A4 area: 9.9 cm2 RA A4 area: 8.1 cm2 LAV(MOD-bp) Indexed: 12.5 ml/m2 LAV(MOD-sp2): 16.7 ml LAV(MOD-sp4): 22.3 ml Time Measurements MV dec time: 0.28 sec Doppler Measurements & Calculations MV E max gregory: 64.6 cm/sec Lat Peak E' Gregory: 11.7 cm/sec Med Peak E' Gregory: 6.8 cm/sec MV A max gregory: 45.4 cm/sec E/E' lat: 5.5 E/E' med: 9.5 MV E/A: 1.4 Ao V2 max: 123.5 cm/sec LV V1 max: 86.4 cm/sec PA V2 max: 107.7 cm/sec Ao max P.1 mmHg LV V1 max P.0 mmHg TR max gregory: 243.5 cm/sec TR max P.7 mmHg Interpretation Summary No evidence for diastolic dysfunction. Normal LV size. The estimated ejection fraction is 50 %. Abnormal right ventricular diastolic function There are regional wall motion abnormalities. Mild tricuspid valve insufficiency. Ordering Physician: Yamil Merino Referring Physician: ANNA HARRELL Performed By: Denisse Shah, [facility], RVT
[2018-04-15] MEDS: levoFLOXacin IV 750 MG/150 ML BAG 100 MG IV (19:01)
--- NOTE | 2018-04-15 19:03 | PCM.CONS.C ---
Reason for Consult Date of Consultation: 04/15/18 Reason for Consultation: Shortness of breath and EKG changes History of Present Illness: The patient is a 53 year old F with multiple comorbidities, predominantly COPD on 4 L of home oxygen, recently was admitted in [facility] from last week, to Sunday was brought in to ER by ambulance for shortness of breath, cough and decreased level of consciousness. Before I saw the patient, patient was intubated for respiratory failure and decreased level of consciousness. She apparently had been having some fever and chills and was short of breath even when she was discharged yesterday. In the emergency room she was noted to be tachycardic with a high respiratory rate and was put on BiPAP and was subsequently intubated because of impending respiratory failure. EKG demonstrated lateral ST changes and cardiology was informed to see her. While in the emergency room she was noted to be having runs of supraventricular tachycardia with a rate of approximately 210 bpm spontaneously converting. She was given 5 mg of intravenous beta-manuel and arrangements were made to transfer her to the intensive care unit. Past Medical History Allergies/Adverse Reactions: Allergies amoxicillin Allergy (Severe, Verified 10/26/17 07:16) Shortness of breath AND HIVES azithromycin Allergy (Severe, Verified 10/26/17 07:17) Shortness of breath AND HIVES clindamycin Allergy (Severe, Verified 10/26/17 07:20) Shortness of breath AND HIVES doxycycline Allergy (Severe, Verified 10/26/17 07:20) Shortness of breath AND HIVES erythromycin lactobionate [From Erythrocin] Allergy (Severe, Verified 10/26/17 07:20) Shortness of breath AND HIVES Penicillins Allergy (Severe, Verified 10/26/17 07:20) Shortness of breath AND HIVES Sulfa (Sulfonamide Antibiotics) Allergy (Severe, Verified 10/26/17 07:20) Shortness of breath AND HIVES sulfamethoxazole [From Bactrim] Allergy (Severe, Verified 10/26/17 07:20) Shortness of breath AND HIVES trimethoprim [From Bactrim] Allergy (Severe, Verified 10/26/17 07:20) Shortness of breath AND HIVES tramadol Allergy (Verified 10/23/17 16:51) Unknown codeine [From Tylenol-Codeine #3] Adverse Reaction (Verified 10/23/17 16:51) Nausea/Vom/Diarrhea terbutaline [From Brethine] Adverse Reaction (Verified 10/23/17 16:51) Other ANITHISTAMINES Allergy (Uncoded 10/23/17 16:51) Unknown Home Medications: Ambulatory Orders Medication Instructions Recorded Atenolol [Tenormin (beta Manuel)] 25 mg PO BID 06/23/14 Diazepam [Valium] 5 mg PO BID 06/23/14 Lamotrigine [Lamictal] 200 mg PO BID 06/23/14 Rosuvastatin Calcium [Crestor] 40 mg PO QHS 06/23/14 Fluoxetine [Prozac] 40 mg PO DAILY 08/02/15 Ranitidine [Zantac] 150 mg PO BID PRN PRN 02/27/16 Fluoxetine [Prozac] 20 mg PO QHS 07/22/16 Albuterol Aerosols [Ventolin 2.5 mg INHALATION Q4H PRN #25 vial 10/16/16 Aerosols] Albuterol Inhaler [Ventolin Hfa] 1 - 2 puff INHALATION Q4H PRN PRN 02/03/17 #1 inhaler Acetaminophen/Butalbital/Caffe 1 tablet PO Q4H PRN PRN 10/23/17 [Fioricet] proMETHazine tablet [Phenergan] 25 mg PO Q4H PRN PRN 10/23/17 levothyroxine 125 mcg tablet 125 mcg PO DAILY 11/08/17 Prednisone [Deltasone] 60 mg PO DAILY #12 tab 03/03/18 Past Medical History (Chronic Problems): Chronic Problems (Last Reviewed 12/13/17 @ 07:47 by Vanessa Zamora) Tobacco dependency (Chronic) Hypersomnia (Chronic) Urinary incontinence (Chronic) Back pain (Chronic) Neck pain (Chronic) GERD (gastroesophageal reflux disease) (Chronic) Temporomandibular joint (TMJ) pain (Chronic) COPD (chronic obstructive pulmonary disease) (Chronic) Mitral valve prolapse (Chronic) Bipolar disorder (Chronic) Hypokalemia (Chronic) Hypoglycemia (Chronic) Hypothyroidism (Chronic) Surgical History: - - Emergency 1993 Left ovary follapian tube and ovary removed 1998 Throat biopsy: benign 1999 Hydrothermal ablation and D&C 2005 Emergency appendectomy 2009 Cholecystectomy lap 2002 - *Family History Paternal Family History: Family History (Last Reviewed 12/13/17 @ 07:47 by Vanessa Zamora) Mother Hypertension Pulmonary embolism Psychiatric care Father Lung cancer Grandmother Breast cancer Sister Asthma Seizures Psychiatric care Depression Son Depression Psychiatric care ADHD Daughter Depression Psychiatric care Bipolar 1 disorder History Items: Hypertension Smoking Status: Former smoker Alcohol: None Drugs: None Review of Systems - Review of Systems General: Reports: Fever, Fatigue, Malaise, Chills. Denies: Night Sweats Cardiovascular: Denies: Chest Discomfort, Shortness of Breath, Orthopnea, PND, Peripheral Edema, Palpitations, Lightheadedness, Dizziness, Near Syncope, Syncope Respiratory: Reports: Cough, Shortness of Breath, Wheezing. Denies: Sputum Production, Hemoptysis Gastrointestinal: Denies: Hematemesis, Hematochezia, Melena Genitourinary: Denies: Dysuria, Hematuria Skin: Denies: Rash Subjectve: Intubated lady in mild distress on intravenous propofol Objective: Vital Signs Temp Pulse Resp BP Pulse Ox 99.3 F H 149 H 15 135/117 H 100 04/15/18 16:42 04/15/18 18:10 04/15/18 18:10 04/15/18 18:00 04/15/18 18:10 General: Ill Appearing HEENT: PERRL, EOMI, Sclera Non Icteric Neck: Supple, Good ROM, No Lymph Node Enlargement Lungs: Diminished Mika Bases Cardiovascular: Regular Rhythm, Normal S1, Normal S2, No Murmurs, No Rubs, No Gallops Vascular: No Carotid Bruits, Normal Femoral Pulses, Normal Radial Pulses, Normal Dorsalis Pedal Pulse, Normal Posterior Tibial Pulses Abdomen: Bowel Sounds Present, Soft, Non Tender, No HSM, No Organomegaly Extremities: No Cyanosis, No Clubbing, No edema Neurological: No Focal Motor or Sensory Deficit Rhythm: EKG: Sinus tachycardia with a rate of [address] depression ECHO: Stress Test: Cardiac Cath: PCI: CT Surgery: Holter monitor: EPS: PPM: CXR: Chest CT Scan: Assessment/Plan 1. Non-ST elevation myocardial infarction The patient presents with respiratory distress and is noted to have EKG changes and a non-ST elevation myocardial infarction. No history is available at this particular time but she does appear to have chest x-ray findings with left sided infiltrate suggesting that sepsis could be potentiating culprits. Recommendation at this time will be to treat the underlying sepsis. There is a suggestion that she may have had mitral valve prolapse and I recommend an echocardiogram to assess her ventricular function as well as her mitral valve to exclude chordal rupture Aspirin Will hold off on anticoagulation at this time in the face of the sepsis She will eventually need an evaluation of her coronary anatomy. I did discuss this with the patient's son, and he is in agreement. High intensity statin 2. Supraventricular tachycardia Patient is having runs of supraventricular tachycardia Will continue to administer aliquots of beta-manuel as blood pressure tolerates Thank you for allowing me to participate in the care of your patient. Please don't hesitate to call if any issues arise
[2018-04-15] MEDS: fentaNYL 100 MCG/2 ML Ampul 50 MCG IV (19:04)
--- NOTE | 2018-04-15 19:12 | CON.PCM_ITS ---
Reason for Consult Date of Consultation: 04/15/18 Reason for Consultation: Shortness of breath and EKG changes History of Present Illness: The patient is a 53 year old F with multiple comorbidities, predominantly COPD on 4 L of home oxygen, recently was admitted in [facility] from last week, to Sunday was brought in to ER by ambulance for shortness of breath, cough and decreased level of consciousness. Before I saw the patient, patient was intubated for respiratory failure and decreased level of consciousness. She apparently had been having some fever and chills and was short of breath even when she was discharged yesterday. In the emergency room she was noted to be tachycardic with a high respiratory rate and was put on BiPAP and was subsequently intubated because of impending respiratory failure. EKG demonstrated lateral ST changes and cardiology was informed to see her. While in the emergency room she was noted to be having runs of supraventricular tachycardia with a rate of approximately 210 bpm spontaneously converting. She was given 5 mg of intravenous beta-manuel and arrangements were made to transfer her to the intensive care unit. Past Medical History Allergies/Adverse Reactions: Allergies amoxicillin Allergy (Severe, Verified 10/26/17 07:16) Shortness of breath AND HIVES azithromycin Allergy (Severe, Verified 10/26/17 07:17) Shortness of breath AND HIVES clindamycin Allergy (Severe, Verified 10/26/17 07:20) Shortness of breath AND HIVES doxycycline Allergy (Severe, Verified 10/26/17 07:20) Shortness of breath AND HIVES erythromycin lactobionate [From Erythrocin] Allergy (Severe, Verified 10/26/17 07:20) Shortness of breath AND HIVES Penicillins Allergy (Severe, Verified 10/26/17 07:20) Shortness of breath AND HIVES Sulfa (Sulfonamide Antibiotics) Allergy (Severe, Verified 10/26/17 07:20) Shortness of breath AND HIVES sulfamethoxazole [From Bactrim] Allergy (Severe, Verified 10/26/17 07:20) Shortness of breath AND HIVES trimethoprim [From Bactrim] Allergy (Severe, Verified 10/26/17 07:20) Shortness of breath AND HIVES tramadol Allergy (Verified 10/23/17 16:51) Unknown codeine [From Tylenol-Codeine #3] Adverse Reaction (Verified 10/23/17 16:51) Nausea/Vom/Diarrhea terbutaline [From Brethine] Adverse Reaction (Verified 10/23/17 16:51) Other ANITHISTAMINES Allergy (Uncoded 10/23/17 16:51) Unknown Home Medications: Ambulatory Orders Medication Instructions Recorded Atenolol [Tenormin (beta Manuel)] 25 mg PO BID 06/23/14 Diazepam [Valium] 5 mg PO BID 06/23/14 Lamotrigine [Lamictal] 200 mg PO BID 06/23/14 Rosuvastatin Calcium [Crestor] 40 mg PO QHS 06/23/14 Fluoxetine [Prozac] 40 mg PO DAILY 08/02/15 Ranitidine [Zantac] 150 mg PO BID PRN PRN 02/27/16 Fluoxetine [Prozac] 20 mg PO QHS 07/22/16 Albuterol Aerosols [Ventolin 2.5 mg INHALATION Q4H PRN #25 vial 10/16/16 Aerosols] Albuterol Inhaler [Ventolin Hfa] 1 - 2 puff INHALATION Q4H PRN PRN 02/03/17 #1 inhaler Acetaminophen/Butalbital/Caffe 1 tablet PO Q4H PRN PRN 10/23/17 [Fioricet] proMETHazine tablet [Phenergan] 25 mg PO Q4H PRN PRN 10/23/17 levothyroxine 125 mcg tablet 125 mcg PO DAILY 11/08/17 Prednisone [Deltasone] 60 mg PO DAILY #12 tab 03/03/18 Past Medical History (Chronic Problems): Chronic Problems (Last Reviewed 12/13/17 @ 07:47 by Vanessa Zamora) Tobacco dependency (Chronic) Hypersomnia (Chronic) Urinary incontinence (Chronic) Back pain (Chronic) Neck pain (Chronic) GERD (gastroesophageal reflux disease) (Chronic) Temporomandibular joint (TMJ) pain (Chronic) COPD (chronic obstructive pulmonary disease) (Chronic) Mitral valve prolapse (Chronic) Bipolar disorder (Chronic) Hypokalemia (Chronic) Hypoglycemia (Chronic) Hypothyroidism (Chronic) Surgical History: - - Emergency 1993 Left ovary follapian tube and ovary removed 1998 Throat biopsy: benign 1999 Hydrothermal ablation and D&C 2005 Emergency appendectomy 2009 Cholecystectomy lap 2002 - *Family History Paternal Family History: Family History (Last Reviewed 12/13/17 @ 07:47 by Vanessa Zamora) Mother Hypertension Pulmonary embolism Psychiatric care Father Lung cancer Grandmother Breast cancer Sister Asthma Seizures Psychiatric care Depression Son Depression Psychiatric care ADHD Daughter Depression Psychiatric care Bipolar 1 disorder History Items: Hypertension Smoking Status: Former smoker Alcohol: None Drugs: None Review of Systems - Review of Systems General: Reports: Fever, Fatigue, Malaise, Chills. Denies: Night Sweats Cardiovascular: Denies: Chest Discomfort, Shortness of Breath, Orthopnea, PND, Peripheral Edema, Palpitations, Lightheadedness, Dizziness, Near Syncope, Syncope Respiratory: Reports: Cough, Shortness of Breath, Wheezing. Denies: Sputum Production, Hemoptysis Gastrointestinal: Denies: Hematemesis, Hematochezia, Melena Genitourinary: Denies: Dysuria, Hematuria Skin: Denies: Rash Subjectve: Intubated lady in mild distress on intravenous propofol Objective: Vital Signs Temp Pulse Resp BP Pulse Ox 99.3 F H 149 H 15 135/117 H 100 04/15/18 16:42 04/15/18 18:10 04/15/18 18:10 04/15/18 18:00 04/15/18 18:10 General: Ill Appearing HEENT: PERRL, EOMI, Sclera Non Icteric Neck: Supple, Good ROM, No Lymph Node Enlargement Lungs: Diminished Mika Bases Cardiovascular: Regular Rhythm, Normal S1, Normal S2, No Murmurs, No Rubs, No Gallops Vascular: No Carotid Bruits, Normal Femoral Pulses, Normal Radial Pulses, Normal Dorsalis Pedal Pulse, Normal Posterior Tibial Pulses Abdomen: Bowel Sounds Present, Soft, Non Tender, No HSM, No Organomegaly Extremities: No Cyanosis, No Clubbing, No edema Neurological: No Focal Motor or Sensory Deficit Rhythm: EKG: Sinus tachycardia with a rate of [address] depression ECHO: Stress Test: Cardiac Cath: PCI: CT Surgery: Holter monitor: EPS: PPM: CXR: Chest CT Scan: Assessment/Plan 1. Non-ST elevation myocardial infarction The patient presents with respiratory distress and is noted to have EKG changes and a non-ST elevation myocardial infarction. No history is available at this particular time but she does appear to have chest x-ray findings with left sided infiltrate suggesting that sepsis could be potentiating culprits. * Recommendation at this time will be to treat the underlying sepsis. * There is a suggestion that she may have had mitral valve prolapse and I recommend an echocardiogram to assess her ventricular function as well as her mitral valve to exclude chordal rupture * Aspirin * Will hold off on anticoagulation at this time in the face of the sepsis * She will eventually need an evaluation of her coronary anatomy. I did discuss this with the patient's son, and he is in agreement. * High intensity statin 2. Supraventricular tachycardia * Patient is having runs of supraventricular tachycardia * Will continue to administer aliquots of beta-manuel as blood pressure tolerates * * Thank you for allowing me to participate in the care of your patient. Please don't hesitate to call if any issues arise
--- NOTE | 2018-04-15 20:45 | ED.RN ---
1917 PROPOFOL STOPPED D/T LOW BP. FENTANYL DRIPPED TO START
[2018-04-15 20:56] LABS: Allen Test POS; Base Excess -3 mmol/L (-2 to +2); Bicarbonate 24.5 mmol/L (22-26); Blood Gas Specimen Type ART; FI02 45; Mode A-C; O2 Delivery Device Vent; PEEP 5; PO2 82 mmHG (75-100); RR 14; SITE R Radial; SO2 93 % (95-99); Time Given 2040; Total Carbon Dioxide 26 mmol/L; Vt 450; pCO2 59.5 mmHg (35-45); pH 7.22 (7.35-7.45)
[2018-04-15 20:57] LABS: Reflex Lactate? Y
[2018-04-15 21:21] LABS: Bedside Glucose 147 mg/dL (70-110)
[2018-04-15 21:42] LABS: Magnesium 2.2 mg/dL (1.6-2.6)
[2018-04-15] MEDS: Vancomycin IV 1,000 MG/200 ML BAG 200 MG IV (21:42)
[2018-04-15] MEDS: Enoxaparin 40 MG/0.4 ML Syringe SC (21:48)
[2018-04-15] MEDS: Famotidine 20 MG Tablet GT (22:18)
[2018-04-15] MEDS: Chlorhexidine 15 ML PO (22:19)
--- NOTE | 2018-04-15 22:24 | PCM.RX.CS ---
Consult Pharmacy has been consulted to manage selected antiobiotic: Vancomycin Type of Consult: New start Suspected Infection: Other Labs: Sodium 139 mmol/L (136-145) 04/15/18 16:50 Potassium 2.9 mmol/L (3.5-5.1) L 04/15/18 16:50 Chloride 97 mmol/L (98-107) L 04/15/18 16:50 Carbon Dioxide 29.0 mmol/L (21.0-32.0) 04/15/18 16:50 Anion Gap 13 (5-15) 04/15/18 16:50 BUN 20 mg/dL (7-18) H 04/15/18 16:50 Creatinine 0.58 mg/dL (0.55-1.02) 04/15/18 16:50 Est GFR (MDRD) Af Amer 140 mL/min (>60) 04/15/18 16:50 Est GFR (MDRD) Non-Af 116 mL/min (>60) 04/15/18 16:50 BUN/Creatinine Ratio 34.5 RATIO (10-20) H 04/15/18 16:50 Glucose 122 mg/dL (74-106) H 04/15/18 16:50 Weight used for dosin.8 kg Estimated Creatinine Clearance: 97.98 Goal Trough: 15-20 mcg/mL Pharmacy Plan for Drug Dosing: Pharmacy Service will continue to monitor and adjust dosing as required. Medications Vancomycin HCl 1,250 mg/ (Sodium Chloride) 275 mls @ 183.333 mls/hr IV Q12H TYSON Follow-Up Labs: Trough Vancomycin Labs to be done on [date and time ordered]: @ [id number]
[2018-04-15 23:11] LABS: Allen Test POS; Base Excess -1 mmol/L (-2 to +2); Bicarbonate 25.6 mmol/L (22-26); Blood Gas Specimen Type ART; FI02 40; Mode A-C; O2 Delivery Device Vent; PEEP 5; PO2 73 mmHG (75-100); RR 14; SITE R Radial; SO2 92 % (95-99); Time Given 2255; Total Carbon Dioxide 27 mmol/L; Vt 500; pCO2 56.8 mmHg (35-45); pH 7.26 (7.35-7.45)
[2018-04-15 23:19] LABS: M R Staph aureus DNA By PCR Negative (Negative); Probe Check PASS; Specimen Processing Control PASS
[2018-04-15 23:36] LABS: Lactic Acid 1.6 mmol/L (0.4-2.0)
[2018-04-16] VITALS (42 sets, daily range): BP systolic 89–119; BP diastolic 55–73; PULSE 81–169; RESP 16–18; TEMP 36.9–38.2; O2SAT 93–100
[2018-04-16] MEDS: 0.9% NaCl Peripheral Flush Adult/Peds IV ×2 (05:22→21:21)
[2018-04-16 05:46] LABS: Allen Test POS; Base Excess 0 mmol/L (-2 to +2); Bicarbonate 26.7 mmol/L (22-26); Blood Gas Specimen Type ART; FI02 40; Mode A-C; O2 Delivery Device Vent; PEEP 5; PO2 73 mmHG (75-100); RR 16; SITE L Radial; SO2 93 % (95-99); Time Given 530; Total Carbon Dioxide 28 mmol/L; Vt 500; pCO2 53.6 mmHg (35-45); pH 7.31 (7.35-7.45)
--- NOTE | 2018-04-16 05:55 | RAD_ITS ---
STUDY: X-RAY CHEST REASON FOR EXAM: Female, 53 years old. Respiratory failure. TECHNIQUE: Single AP portable view of the chest. COMPARISON: Comparison is made with prior examination dated April 15, 2018. FINDINGS: An endotracheal tube is in situ. The tip is at 3.6 times approximately milka. Nasogastric tube is seen with the tip in the body of the stomach. EKG electrodes are seen. Since prior study, there has been improved aeration of both lungs although residual reticular nodule infiltrates persist worse in the left lung base. Further follow-up is recommended. Hyperinflation. There is no demonstrated pleural abnormality. Normal size heart. Normal mediastinum and ashli. Normal visualized pulmonary arteries. Normal visualized aortic arch and descending thoracic aorta. Normal visualized thoracic spine. Normal visualized ribs, clavicles, and shoulders. There is no demonstrated abnormality of the visualized soft tissue structures of the upper abdomen. RAD/Chest 1 View (Portable) IMPRESSION: The support tubes are in good position. Since prior study, there has been improved aeration of both lungs with residual reticular nodular infiltrates worse on the left side. Electronically Signed: Crow Gibson MD at 8:44 EDT Tel [phone], Service support ,
[2018-04-16 06:11] LABS: Bedside Glucose 198 mg/dL (70-110)
[2018-04-16 06:15] LABS: Hematocrit 34.5 % (37-47); Mean Corp Hgb Conc 31.9 g/gl (32-36); Mean Corpuscular Hgb 30.6 pg (27.0-32.0); Mean Corpuscular Volume 95.8 fL (81-99); Mean Platelet Vol. 11.3 fl (6.2-12.0); Platelet Count 195 K/mm3 (150-450); RBC Distribution Width SD 45.6 fl (35.1-43.9); White Blood Count 7.4 K/mm3 (4.4-11.0)
[2018-04-16 06:21] LABS: Anion Gap 8 (5-15); BUN 20 mg/dL (7-18); BUN/Creat Ratio 30.3 RATIO (10-20); Calcium,Total 7.8 mg/dL (8.5-10.1); Chloride 103 mmol/L (98-107); Cholesterol 64 mg/dL (200); Creatinine, Serum 0.66 mg/dL (0.55-1.02); EST Glomerular Filtration Rate 100 mL/min (>60); Est Glom Filt Rate - Afr Amer 121 mL/min (>60); Estimated Creatinine Clearance 82.48 ml/min; Glucose 177 mg/dL (74-106); High Density Lipoprotein 34 mg/dL; Potassium 3.8 mmol/L (3.5-5.1); Sodium Level 140 mmol/L (136-145); Triglycerides 58 mg/dL; Very Low Density Lipoprotein 12 mg/dL (5-40)
[2018-04-16 06:24] LABS: Scan Indicated on CBC? Y/N NO
[2018-04-16] MEDS: Ipratropium/Albuterol Sulfate 3 ML AMPUL.NEB INHALATION ×5 (06:36→23:50)
--- NOTE | 2018-04-16 07:26 | PCM.CON.CC ---
Problem List (1) NSTEMI (non-ST elevated myocardial infarction) Status: Acute (2) SVT (supraventricular tachycardia) Status: Acute (3) Acute on chronic respiratory failure with hypoxia and hypercapnia Status: Acute (4) Multifocal possible HCAP Status: Acute (5) Tobacco dependency Status: Chronic (6) Hypersomnia Status: Chronic (7) History of cholecystectomy Status: Resolved (8) History of appendectomy Status: Resolved (9) History of dilatation and curettage Status: Resolved (10) History of left oophorectomy Status: Resolved (11) History of section Status: Resolved (12) GERD (gastroesophageal reflux disease) Status: Chronic Qualifiers: Esophagitis presence: esophagitis presence not specified Qualified Code(s): K21.9 - Gastro-esophageal reflux disease without esophagitis (13) COPD (chronic obstructive pulmonary disease) Status: Chronic Qualifiers: COPD type: emphysema Emphysema type: centrilobular Qualified Code(s): J43.2 - Centrilobular emphysema (14) Mitral valve prolapse Status: Chronic (15) Bipolar disorder Status: Chronic (16) History of diverticulitis Status: Chronic Reason for Consult Date of Consultation: 04/16/18 Reason for Consultation: Acute on chronic respiratory failure History of Present Illness: The patient is a 53 year old F, with past medical history listed below and known to our outpatient office, who presented to [facility] on 04/15/2018 secondary to decreased mentation, cough and difficulty breathing. Patient reportedly is on 4 L nasal cannula at baseline and presented to the emergency room with depressed mental status and respiratory distress. Patient reportedly nodded yes to a fever and cough, but denied any chest pain. Patient was noted to be tachycardic and hypoxic. Patient was attempted on BiPAP therapy for approximately 10 minutes, but then was intubated. Given allergies, patient was placed on Levaquin and Azactam and transferred to the intensive care unit for further monitoring. Overnight in the intensive care unit, patient did have significant SVT reported as sinus tachycardia. Patient was placed on amiodarone therapy and heart rates have improved this morning. Patient did have an elevated troponin, but this also appears to be improving. Patient has not had any worsening in blood pressure, but propofol has not been used secondary to marginal baseline blood pressure. Patient is responding to fentanyl therapy alone. Multiple changes on the ventilator overnight secondary to respiratory acidosis. Patient reportedly was recently admitted at [facility] for the majority of last week. No family is at the bedside and patient is currently intubated, so the additional history was obtained from the medical record. Patient reportedly was symptomatic with fevers and chills prior to discharge. Laboratory workup showed SVT with heart rates into the 160s, elevated troponin, hypokalemia without leukocytosis or anemia. Patient does have a history of mitral valve prolapse. Patient reportedly has never had a history of VT in the past or cardiac stent. Patient does see Dr. Quispe as an outpatient. Patient has had pulmonary function tests in 2013 showing a mild COPD. Repeat PFT, walking oximetry and PSG were ordered at the last office visit, but it does not appear that these have been completed. Unable to obtain review of systems secondary to intubated status and lack of family at the bedside. Past Medical History Past Medical History (Chronic Problems): Chronic Problems (Last Reviewed 12/13/17 @ 07:47 by Vanessa Zamora) Tobacco dependency (Chronic) Hypersomnia (Chronic) Urinary incontinence (Chronic) Back pain (Chronic) Neck pain (Chronic) GERD (gastroesophageal reflux disease) (Chronic) Temporomandibular joint (TMJ) pain (Chronic) COPD (chronic obstructive pulmonary disease) (Chronic) Mitral valve prolapse (Chronic) Bipolar disorder (Chronic) Hypokalemia (Chronic) Hypoglycemia (Chronic) Hypothyroidism (Chronic) History of diverticulitis (Chronic) Medical History: Medical History (Last Reviewed 12/13/17 @ 07:47 by Vanessa Zamora) Urinary incontinence (Chronic) R32 Back pain (Chronic) M54.9 Neck pain (Chronic) M54.2 GERD (gastroesophageal reflux disease) (Chronic) K21.9 Temporomandibular joint (TMJ) pain (Chronic) M26.629 COPD (chronic obstructive pulmonary disease) (Chronic) J44.9 Mitral valve prolapse (Chronic) I34.1 Bipolar disorder (Chronic) F31.9 Hypokalemia (Chronic) E87.6 Hypoglycemia (Chronic) E16.2 Hypothyroidism (Chronic) E03.9 History of diverticulitis (Acute) Z87.19 Allergies amoxicillin Allergy (Severe, Verified 10/26/17 07:16) Shortness of breath AND HIVES azithromycin Allergy (Severe, Verified 10/26/17 07:17) Shortness of breath AND HIVES clindamycin Allergy (Severe, Verified 10/26/17 07:20) Shortness of breath AND HIVES doxycycline Allergy (Severe, Verified 10/26/17 07:20) Shortness of breath AND HIVES erythromycin lactobionate [From Erythrocin] Allergy (Severe, Verified 10/26/17 07:20) Shortness of breath AND HIVES Penicillins Allergy (Severe, Verified 10/26/17 07:20) Shortness of breath AND HIVES Sulfa (Sulfonamide Antibiotics) Allergy (Severe, Verified 10/26/17 07:20) Shortness of breath AND HIVES sulfamethoxazole [From Bactrim] Allergy (Severe, Verified 10/26/17 07:20) Shortness of breath AND HIVES trimethoprim [From Bactrim] Allergy (Severe, Verified 10/26/17 07:20) Shortness of breath AND HIVES tramadol Allergy (Verified 10/23/17 16:51) Unknown codeine [From Tylenol-Codeine #3] Adverse Reaction (Verified 10/23/17 16:51) Nausea/Vom/Diarrhea terbutaline [From Brethine] Adverse Reaction (Verified 10/23/17 16:51) Other ANITHISTAMINES Allergy (Uncoded 10/23/17 16:51) Unknown Home Medications: Ambulatory Orders Medication Instructions Recorded Atenolol [Tenormin (beta Manuel)] 25 mg PO BID 06/23/14 Diazepam [Valium] 5 mg PO BID 06/23/14 Rosuvastatin Calcium [Crestor] 40 mg PO QHS 06/23/14 Ranitidine [Zantac] 150 mg PO DAILY 02/27/16 Acetaminophen/Butalbital/Caffe 1 tablet PO Q4H PRN PRN 10/23/17 [Fioricet] proMETHazine tablet [Phenergan] 25 mg PO TID 10/23/17 levothyroxine 125 mcg tablet 125 mcg PO DAILY 11/08/17 Albuterol Aerosols [Ventolin 2.5 mg INHALATION Q4H PRN PRN 04/15/18 Aerosols] Albuterol Inhaler [Ventolin Hfa] 1 - 2 puff INHALATION Q4H PRN PRN 04/15/18 Benzonatate [Tessalon Perle] 100 mg PO TID PRN 04/15/18 Cefuroxime Axetil [Ceftin] 250 mg PO BID 04/15/18 Fluoxetine [Prozac] 20 mg PO .COMPLEX 04/15/18 Lamotrigine [Lamotrigine Odt] 200 mg PO BID 04/15/18 Prednisone See Taper PO DAILY 04/15/18 Surgical History: Surgical History (Last Reviewed 12/13/17 @ 07:47 by Vanessa Zamora) History of cholecystectomy (Resolved) Z98.890, Z90.49 History of appendectomy (Resolved) Z98.890, Z90.49 History of dilatation and curettage (Resolved) Z98.890 History of left oophorectomy (Resolved) Z98.890, Z90.721 History of section (Resolved) Z98.891 Surgical History: - - Emergency 1993 Left ovary follapian tube and ovary removed 1998 Throat biopsy: benign 1999 Hydrothermal ablation and D&C 2004 Emergency appendectomy 2008 Cholecystectomy lap 2002 Smoking Status: Former smoker Alcohol: None Drugs: None - *Family History Paternal Family History: Family History (Last Reviewed 12/13/17 @ 07:47 by Vanessa Zamora) Mother Hypertension Pulmonary embolism Psychiatric care Father Lung cancer Grandmother Breast cancer Sister Asthma Seizures Psychiatric care Depression Son Depression Psychiatric care ADHD Daughter Depression Psychiatric care Bipolar 1 disorder History Items: Hypertension Review of Systems Unable to obtain accurate/complete ROS d/t: Intubated and sedated Patient Problems: Active and Suspected Problems (Last Reviewed 12/13/17 @ 07:47 by Vanessa Zamora) Acute on chronic respiratory failure with hypoxia and hypercapnia (Acute) Multifocal possible HCAP (Acute) Elevated troponin (Acute) NSTEMI (non-ST elevated myocardial infarction) (Acute) SVT (supraventricular tachycardia) (Acute) Objective: All imaging was personally reviewed and chest x-ray shows infiltrates, left greater than right with appropriate position of supportive devices. - Physical Exam General: - - RASS -2. Good ventilator synchrony noted. Breathing with the ventilator. Appears older than stated age. HEENT: Atraumatic, PERRLA, EOMI, Normocephalic, - - No scleral icterus or injection noted. Oral: Moist Mucosa, No Gingival or Mucosal Lesions/ Ulcerations, - - Fair dentition Neck: Supple, No JVD, No Nodes, Trachea Midline Lungs: No rales, Diminished, Rhonchi - Left greater than right, Wheezes - Left greater than right, - - Symmetric expansion. Cardiovascular: Normal S1, Normal S2, No murmurs, No rub noted, No Gallop, Tachycardic Abdomen: Bowel Sounds Present, Soft, Non Tender, Non-Distended Skin: No rashes, No breakdown, - - Track ji noted on bilateral ankles Musculoskeletal: No Tenderness to Palpation of Joints or Extremities, No Muscle Wasting Lymphatic: No Cervical, Supraclavicular, or Inguinal Adenopathy Neurological: Cranial nerves II-XII grossly intact, Neuro grossly intact, Motor Exam 5/5 strength throughout Psych/Mental Status: Alert and oriented to time, place, person, mood and affect Vital Signs Temp Pulse Resp BP Pulse Ox 37.0 C 81 16 102/68 97 04/16/18 07:00 04/16/18 07:05 04/16/18 07:05 04/16/18 07:00 04/16/18 07:02 Oxygen Delivery Method Mechanical Ventilator Weight: 61.1 kg Body Mass Index (BMI) 23.3 Intake and Output for Last 24 Hours 04/14/18 04/15/18 04/16/18 23:59 23:59 23:59 Intake Total 1573 / 1573 Output Total 355 / 355 Balance 1218 / 1218 Laboratory Tests Past 24 Hrs 04/15/18 04/15/18 04/15/18 19:59 20:50 21:00 WBC RBC Hgb Hct MCV MCH MCHC RDW RDW Differential Plt Count MPV Specimen Type ART Sample Site R Radial pH 7.22 L Bicarbonate Actual 24.5 POC Total CO2 26 Base Excess -3 L O2 Saturation 93 L O2 % 45 ABG pCO2 59.5 H ABG pO2 82 Yvan Test POS Respiration Rate 14 O2 Delivery Device Vent Minute Volume 7.00 Vent Mode A-C Tidal Volume 450 POC PEEP 5 Blood Gas Notified Whom HOSP Blood Gas Notified Time 2039 Sodium Potassium Chloride Carbon Dioxide Anion Gap BUN Creatinine Estim Creat Clear Calc Est GFR (MDRD) Af Amer Est GFR (MDRD) Non-Af BUN/Creatinine Ratio Glucose Lactic Acid Calcium Magnesium 2.2 Troponin I 1.450 H* Triglycerides Cholesterol LDL Cholesterol VLDL Cholesterol HDL Cholesterol MRSA (PCR) Negative 04/15/18 04/15/18 04/15/18 23:05 23:07 23:30 WBC RBC Hgb Hct MCV MCH MCHC RDW RDW Differential Plt Count MPV Specimen Type ART Sample Site R Radial pH 7.26 L Bicarbonate Actual 25.6 POC Total CO2 27 Base Excess -1 O2 Saturation 92 L O2 % 40 ABG pCO2 56.8 H ABG pO2 73 L Yvan Test POS Respiration Rate 14 O2 Delivery Device Vent Minute Volume 7.00 Vent Mode A-C Tidal Volume 500 POC PEEP 5 Blood Gas Notified Whom HOSP MD Blood Gas Notified Time 2255 Sodium Potassium Chloride Carbon Dioxide Anion Gap BUN Creatinine Estim Creat Clear Calc Est GFR (MDRD) Af Amer Est GFR (MDRD) Non-Af BUN/Creatinine Ratio Glucose Lactic Acid 1.6 Calcium Magnesium Troponin I 0.929 H* Triglycerides Cholesterol LDL Cholesterol VLDL Cholesterol HDL Cholesterol MRSA (PCR) 04/16/18 04/16/18 04/16/18 02:20 05:30 05:30 WBC 7.4 RBC 3.60 L Hgb 11.0 L Hct 34.5 L MCV 95.8 MCH 30.6 MCHC 31.9 L RDW 13.0 RDW Differential 45.6 H Plt Count 195 MPV 11.3 Specimen Type Sample Site pH Bicarbonate Actual POC Total CO2 Base Excess O2 Saturation O2 % ABG pCO2 ABG pO2 Yvan Test Respiration Rate O2 Delivery Device Minute Volume Vent Mode Tidal Volume POC PEEP Blood Gas Notified Whom Blood Gas Notified Time Sodium 140 Potassium 3.8 Chloride 103 Carbon Dioxide 29.0 Anion Gap 8 BUN 20 H Creatinine 0.66 Estim Creat Clear Calc 82.48 Est GFR (MDRD) Af Amer 121 Est GFR (MDRD) Non-Af 100 BUN/Creatinine Ratio 30.3 H Glucose 177 H Lactic Acid Calcium 7.8 L Magnesium Troponin I 0.802 H* Triglycerides 58 Cholesterol 64 LDL Cholesterol 18 VLDL Cholesterol 12 HDL Cholesterol 34 L MRSA (PCR) 04/16/18 05:40 WBC RBC Hgb Hct MCV MCH MCHC RDW RDW Differential Plt Count MPV Specimen Type ART Sample Site L Radial pH 7.31 L Bicarbonate Actual 26.7 H POC Total CO2 28 Base Excess 0 O2 Saturation 93 L O2 % 40 ABG pCO2 53.6 H ABG pO2 73 L Yvan Test POS Respiration Rate 16 O2 Delivery Device Vent Minute Volume 8.00 Vent Mode A-C Tidal Volume 500 POC PEEP 5 Blood Gas Notified Whom ICU MD Blood Gas Notified Time 530 Sodium Potassium Chloride Carbon Dioxide Anion Gap BUN Creatinine Estim Creat Clear Calc Est GFR (MDRD) Af Amer Est GFR (MDRD) Non-Af BUN/Creatinine Ratio Glucose Lactic Acid Calcium Magnesium Troponin I Triglycerides Cholesterol LDL Cholesterol VLDL Cholesterol HDL Cholesterol MRSA (PCR) POC Glucose 04/16/18 04/15/18 06:04 21:15 POC Glucose 198 H 147 H Clinical Impression(s) from Imaging Studies Chest X-Ray 04/15/18 16:45 IMPRESSION: Airspace opacity in the lower lobes, left greater than right. This is likely infectious in etiology. Electronically Signed: Terrence Lemon at 17:47 EDT Tel , Service support , Chest X-Ray 04/15/18 18:10 IMPRESSION: Endotracheal tube and feeding tube placement. Bilateral infiltrates or edema. Electronically Signed: Elias Paulino MD at 19:29 EDT , Service support , Assessment/Plan Active and Suspected Problems (Last Reviewed 12/13/17 @ 07:47 by Vanessa Zamora) Acute on chronic respiratory failure with hypoxia and hypercapnia (Acute) Multifocal possible HCAP (Acute) Elevated troponin (Acute) NSTEMI (non-ST elevated myocardial infarction) (Acute) SVT (supraventricular tachycardia) (Acute) RECOMMENDATIONS: 1. Continue bronchodilators, steroids and antibiotics 2. Wean oxygen as tolerated. Spontaneous breathing and awakening trials per protocol 3. Okay to initiate tube feeds 4. Obtain tox screen 5. Amiodarone and cardiac investigation per cardiology 6. Okay to initiate full anticoagulation if requested by cardiology IMPRESSIONS: 1. Acute on chronic combined respiratory failure Exact etiology is unclear at this time. Patient did have SVT on presentation and may have an element of acute on chronic diastolic heart failure. Echocardiogram has been ordered. Patient did have an elevation in troponin. Likely okay to initiate heparin drip if requested by cardiology. Patient also has relatively mild COPD in 2013, but has been smoking ever since. Updated PFT has not been completed at this time. COPD exacerbation cannot be excluded. Patient has been initiated on bronchodilators and steroid therapy. Patient is on empiric antibiotics for 48 hours until cultures become complete. She does have track ji on her ankles, so it is unclear if illicit drug use could be complicating situation. Unfortunately, patient has been on fentanyl and no tox screen was obtained in the ER. Wean oxygen as tolerated. Spontaneous awakening and breathing trials per protocol. 2. Non-ST elevation VT/SVT Unclear if this is secondary to hypoxemia versus a malignant rhythm with baseline coronary obstruction. Cardiology is currently following. Troponins appear to be improving. Patient is on aspirin, but Lovenox is only on DVT prophylaxis. Defer to cardiology on whether this needs to be increased to full anticoagulation. 3. Severe sepsis secondary to possible pneumonia Patient with reported fever, tachycardia and hypoxemia on presentation. Patient does have increased infiltrates noted on chest x-ray, but no leukocytosis is appreciated. Pneumonia workup is currently underway. If cultures negative at 48 hours, likely discontinue antibiotics. Elevated lactate may be secondary to global hypoxemia. 4. Metabolic encephalopathy She was significant CO2 retention on presentation. Patient is on supplemental oxygen at baseline. This appears to be improving. Patient is on fentanyl. Okay to use propofol if necessary. 5. Bipolar disorder/history of diverticulitis/mitral valve prolapse/chronic pain syndrome/GERD/hypothyroidism Complicates care, management, recovery and prognosis. Likely okay to continue with baseline medications. TIME: 37 minutes critical care time spent addressing patient's acute on chronic combined respiratory failure, non-ST elevation VT, severe sepsis, review of all data and collaboration with care team. (6 AM to 7:50 AM)
--- NOTE | 2018-04-16 09:06 | PCM.PN.HOSP ---
Patient Problems: Active and Suspected Problems (Last Reviewed 12/13/17 @ 07:47 by Vanessa Zamora) Acute on chronic respiratory failure with hypoxia and hypercapnia (Acute) Multifocal possible HCAP (Acute) Elevated troponin (Acute) NSTEMI (non-ST elevated myocardial infarction) (Acute) SVT (supraventricular tachycardia) (Acute) Subjective: Patient is a 53-year-old female with a history of COPD, hypothyroidism and diverticulosis. She was admitted from home via the ED on 04/15/2018 complaint of shortness of breath, cough and altered mental status when she was noticed to be less conscious. On arrival in the ED, patient was intubated for respiratory failure and altered mental status. History taken from her son was at the bedside says she was having fever or chills basically did not look good. Patient had been on admission at [facility], where she was treated for pneumonia. In the ED vitals showed heart rate of 136 with respiratory rate of 27 pulse ox 98% on nonrebreather. She was put on BiPAP but had to be intubated because of respiratory failure. X-ray showed bilateral lower lobe infiltrates greater on the left than the right. In the ED EKG shows sinus tachycardia with heart rate of 1 1 7 bpm and she had runs of SVT with heart rate going up to 148. She was started on metoprolol but had to be put on amiodarone overnight as her heart rate was up in the 200s. Cardiology is on board. She has been managed for health associated pneumonia and is on IV vancomycin, aztreonam and levofloxacin. She has seen and examined this morning. She was lying calmly in bed and was alert. Per nurse, patient was put on amiodarone as stated because heart rate was up in the 200s. She had no fever or chills. Unable to do a comprehensive review of systems as patient is intubated. Vitals/I&O's: Vital Signs Temp Pulse Resp BP Pulse Ox 99.1 F 93 16 104/59 L 94 04/16/18 08:00 04/16/18 08:00 04/16/18 08:00 04/16/18 08:00 04/16/18 08:00 Oxygen Delivery Method Mechanical Ventilator Weight: 134 lb 11.239 oz Body Mass Index (BMI) 23.3 Intake and Output for Last 24 Hours 04/14/18 04/15/18 04/16/18 23:59 23:59 23:59 Intake Total 1573 / 1573 Output Total 355 / 355 Balance 1218 / 1218 General: Alert, Cooperative, No apparent distress HEENT: Atraumatic, PERRLA, EOMI, Normocephalic Oral: Moist Mucosa Neck: Supple, No JVD, Negative Carotid Bruits Lungs: - - has coarse crackles and rhonchi in lung bases and anteriorly, L>R Cardiovascular: Regular rate, Regular Rhythm, Normal S1, Normal S2, No murmurs Abdomen: Bowel Sounds Present, Soft, Non Tender, Non-Distended, No Hepato-splenomegaly Extremities: No clubbing, No cyanosis, No edema, Capillary Refill Less than 3 Seconds Skin: No rashes, No breakdown, - - had ?trackmarks on the dorsum of her feet bilaterally Musculoskeletal: No Tenderness to Palpation of Joints or Extremities Lymphatic: No Cervical, Supraclavicular, or Inguinal Adenopathy Neurological: Cranial nerves II-XII grossly intact, Neuro grossly intact Psych/Mental Status: Normal Affect Laboratory Results 04/15/18 19:59: MRSA (PCR) Negative 04/15/18 20:50: Specimen Type ART, Sample Site R Radial, pH 7.22 L, Bicarbonate Actual 24.5, POC Total CO2 26, Base Excess -3 L, O2 Saturation 93 L, O2 % 45, ABG pCO2 59.5 H, ABG pO2 82, Yvan Test POS, Respiration Rate 14, O2 Delivery Device Vent, Minute Volume 7.00, Vent Mode A-C, Tidal Volume 450, POC PEEP 5, Blood Gas Notified Whom GARRISON PALMER, Blood Gas Notified Time 203904/15/18 21:00: Magnesium 2.2, Troponin I 1.450 H* 04/15/18 21:15: POC Glucose 147 H 04/15/18 23:05: Lactic Acid 1.6 04/15/18 23:07: Specimen Type ART, Sample Site R Radial, pH 7.26 L, Bicarbonate Actual 25.6, POC Total CO2 27, Base Excess -1, O2 Saturation 92 L, O2 % 40, ABG pCO2 56.8 H, ABG pO2 73 L, Yvan Test POS, Respiration Rate 14, O2 Delivery Device Vent, Minute Volume 7.00, Vent Mode A-C, Tidal Volume 500, POC PEEP 5, Blood Gas Notified Whom HOSP , Blood Gas Notified Time 2255 04/15/18 23:30: Troponin I 0.929 H* 04/16/18 02:20: Troponin I 0.802 H* 04/16/18 05:30: WBC 7.4, RBC 3.60 L, Hgb 11.0 L, Hct 34.5 L, MCV 95.8, MCH 30.6, MCHC 31.9 L, RDW 13.0, RDW Differential 45.6 H, Plt Count 195, MPV 11.3 04/16/18 05:30: Sodium 140, Potassium 3.8, Chloride 103, Carbon Dioxide 29.0, Anion Gap 8, BUN 20 H, Creatinine 0.66, Estim Creat Clear Calc 82.48, Est GFR (MDRD) Af Amer 121, Est GFR (MDRD) Non-Af 100, BUN/Creatinine Ratio 30.3 H, Glucose 177 H, Calcium 7.8 L, Triglycerides 58, Cholesterol 64, LDL Cholesterol 18, VLDL Cholesterol 12, HDL Cholesterol 34 L 04/16/18 05:40: Specimen Type ART, Sample Site L Radial, pH 7.31 L, Bicarbonate Actual 26.7 H, POC Total CO2 28, Base Excess 0, O2 Saturation 93 L, O2 % 40, ABG pCO2 53.6 H, ABG pO2 73 L, Yvan Test POS, Respiration Rate 16, O2 Delivery Device Vent, Minute Volume 8.00, Vent Mode A-C, Tidal Volume 500, POC PEEP 5, Blood Gas Notified Whom ICU , Blood Gas Notified Time 530 04/16/18 06:04: POC Glucose 198 H Current Medications Acetaminophen (Tylenol Liquid) 650 mg GT Q4H PRN PRN PRN Reason: PAIN/FEVER Albuterol Sulfate (Ventolin Aerosols) 2.5 mg INHALATION Q2H PRN PRN PRN Reason: SHORTNESS OF BREATH Last Admin: 04/15/18 21:02 Dose: 2.5 mg Albuterol/Ipratropium (Duoneb) 3 ml INHALATION Q4H.RT TYSON Last Admin: 04/16/18 06:36 Dose: 3 ml Aspirin (Aspirin) 300 mg RECTAL DAILY [facility] Chlorhexidine Gluconate () 15 ml PO BID [facility] Last Admin: 04/15/18 22:19 Dose: 15 ml Chlorhexidine Gluconate () 1 each TOPICAL DAILY [facility] Enoxaparin Sodium (Lovenox) 40 mg SC DAILY@1000 [facility] Last Admin: 04/15/18 21:48 Dose: 40 mg Famotidine (Pepcid) 20 mg GT BID [facility] Last Admin: 04/15/18 22:18 Dose: 20 mg Propofol (Diprivan) 1,000 mg in 100 mls @ 1.794 mls/hr CONT INF .Q12H [facility]; 5 MCG/KG/MIN PRN Reason: Protocol Last Admin: 04/15/18 21:43 Dose: 1.794 mls/hr Fentanyl () 100 mls @ 2.5 mls/hr IV .Q40H [facility] PRN Reason: Protocol Last Admin: 04/16/18 05:21 Dose: 2.5 mls/hr Aztreonam 2 gm/ Dextrose 100 mls @ 150 mls/hr IV Q8 [facility] Last Admin: 04/16/18 05:20 Dose: 150 mls/hr Potassium Chloride/Sodium Chloride () 1,000 mls @ 100 mls/hr IV .Q10H [facility] Last Admin: 04/15/18 21:42 Dose: 100 mls/hr Levofloxacin 500 mg/ N/A 100 mls @ 100 mls/hr IV Q24 [facility] Vancomycin HCl 1,250 mg/ (Sodium Chloride) 275 mls @ 183.333 mls/hr IV Q12H [facility] Amiodarone HCl 360 mg/ (Dextrose) 200 mls @ 16.66 mls/hr CONT INF .Q12H1M [facility] PRN Reason: 0.5 MG/MIN Stop: 04/17/18 02:10 Last Admin: 04/16/18 08:36 Dose: 16.66 mls/hr Magnesium Hydroxide (Milk Of Magnesia) 30 ml PO DAILY PRN PRN PRN Reason: Constipation Methylprednisolone (Solu-Medrol) 40 mg IV Q8 [facility] Last Admin: 04/16/18 05:21 Dose: 40 mg Morphine Sulfate () 1 - 2 mg IV Q4H PRN PRN PRN Reason: SEVERE PAIN (6-10/10) Ondansetron HCl (Zofran) 4 mg IV Q4H PRN PRN PRN Reason: NAUSEA Oxycodone HCl (Oxyir) 5 mg GT Q4H PRN PRN PRN Reason: MOD-SEVERE PAIN (-07/17) Promethazine HCl (Phenergan) 12.5 mg IV Q6H PRN PRN PRN Reason: NAUSEA/VOMITING Senna/Docusate Sodium (Senokot-S, Venessa-Colace) 2 tablet GT BID PRN PRN Reason: Constipation Sodium Chloride () 5 - 30 ml IV UD PRN PRN Reason: SALINE FLUSH Last Admin: 04/16/18 05:22 Dose: 10 ml Medical Necessity - Tobacco Use Smoking Status: Former smoker Assessment/Plan All Active Problems (Last Reviewed 12/13/17 @ 07:47 by Vanessa Zamora) Acute on chronic respiratory failure with hypoxia and hypercapnia (Acute) Multifocal possible HCAP (Acute) Elevated troponin (Acute) NSTEMI (non-ST elevated myocardial infarction) (Acute) SVT (supraventricular tachycardia) (Acute) History of cholecystectomy (Resolved) History of appendectomy (Resolved) History of dilatation and curettage (Resolved) History of left oophorectomy (Resolved) History of section (Resolved) 53-year-old female admitted with complaint of shortness of breath cough and altered mental status. She was intubated on account of acute respiratory failure. 1. Severe sepsis due to health associated pneumonia on admission, SIRS criteria was 2/4(tachycardia, tachypnea,), lactic acid was mildly elevated at 2.1, and focus of infection was pneumonia has no leucocytosis. SIRS criteria now 0/4 CXR showed: on IV vancomycin, aztreonam and levaquin. Has multiple medication allergies blood cultures and sputum cultures pending CXR today: improvement of aeration of both lungs, with residual reticular nodular infiltrates worse on left side urine for strep pneumoniae and legionella were negative. will await blood cultures and urine cultures intubated and sedated. On fentanyl drip 2. Acute on chronic hypercarbic respiratory failure due to health associated pneumonia intubated in the ED has chronic respiratory failure due to COPD, and is on 2L of oxygen at home vent settings: AC/VC. TV-500mls, PEEP-5, RR-12, FiO2-40% ABG today: pH-7.31, pCO2-53.6, pO2-73, breathing treatments with albuterol and atrovent associate application developer on board IV solumedrol 3. SVT Went into SVT in the ED. IV metoprolol prn didnt help with the elevated heart rate. Had sustained SVT overnight and was started on amiodarone drip. Heart rate is 93 at time of review. Cardiology on board. Will monitor. 4. NSTEMI troponin was 1.08 on admission ->1.45->0.929->0.802 EKG showed:slight ST depression in lateral and inferior leads. cardiology on board 2D echo pending; on aspirin and statin. 5. Metabolic encephalopathy due to sepsis admitted with altered mental status. Now resolving. RASS score is 1, on diprivan drip likely due to sepsis will monitor 6. COPD: on 2L baseline at home. Currently intubated and sedated. On breathing treatments and steroids. Chest physiotherapy 7. Nutrition: will start tube feeding. Other medical problems: 8. GERD 9. Mitral valve prolapse 10. Nicotine dependence DVT prpophylaxis: lovenox GI prophylaxis: famotidine Code status: full code. This note was generated with [employer] software. It may contain incorrect words, spelling, and punctuation that were not noted in checking the note before signing. Code Visit Inpatient E&M: 30638 Subs Hosp L3
--- NOTE | 2018-04-16 09:35 | PN_ITS ---
Patient Problems: Active and Suspected Problems (Last Reviewed 12/13/17 @ 07:47 by Vanessa Zamora ) Acute on chronic respiratory failure with hypoxia and hypercapnia (Acute) Multifocal possible HCAP (Acute) Elevated troponin (Acute) NSTEMI (non-ST elevated myocardial infarction) (Acute) SVT (supraventricular tachycardia) (Acute) Subjective: Patient is a 53-year-old female with a history of COPD, hypothyroidism and diverticulosis. She was admitted from home via the ED on 04/15/2018 complaint of shortness of breath, cough and altered mental status when she was noticed to be less conscious. On arrival in the ED, patient was intubated for respiratory failure and altered mental status. History taken from her son was at the bedside says she was having fever or chills basically did not look good. Patient had been on admission at [facility], where she was treated for pneumonia. In the ED vitals showed heart rate of 136 with respiratory rate of 27 pulse ox 98% on nonrebreather. She was put on BiPAP but had to be intubated because of respiratory failure. X-ray showed bilateral lower lobe infiltrates greater on the left than the right. In the ED EKG shows sinus tachycardia with heart rate of 1 1 7 bpm and she had runs of SVT with heart rate going up to 148. She was started on metoprolol but had to be put on amiodarone overnight as her heart rate was up in the 200s. Cardiology is on board. She has been managed for health associated pneumonia and is on IV vancomycin, aztreonam and levofloxacin. She has seen and examined this morning. She was lying calmly in bed and was alert. Per nurse, patient was put on amiodarone as stated because heart rate was up in the 200s. She had no fever or chills. Unable to do a comprehensive review of systems as patient is intubated. Vitals/I&O's: Vital Signs Temp Pulse Resp BP Pulse Ox 99.1 F 93 16 104/59 L 94 04/16/18 08:00 04/16/18 08:00 04/16/18 08:00 04/16/18 08:00 04/16/18 08:00 Oxygen Delivery Method Mechanical Ventilator Weight: 134 lb 11.239 oz Body Mass Index (BMI) 23.3 Intake and Output for Last 24 Hours 04/14/18 04/15/18 04/16/18 23:59 23:59 23:59 Intake Total 1573 / 1573 Output Total 355 / 355 Balance 1218 / 1218 General: Alert, Cooperative, No apparent distress HEENT: Atraumatic, PERRLA, EOMI, Normocephalic Oral: Moist Mucosa Neck: Supple, No JVD, Negative Carotid Bruits Lungs: - - has coarse crackles and rhonchi in lung bases and anteriorly, L>R Cardiovascular: Regular rate, Regular Rhythm, Normal S1, Normal S2, No murmurs Abdomen: Bowel Sounds Present, Soft, Non Tender, Non-Distended, No Hepato- splenomegaly Extremities: No clubbing, No cyanosis, No edema, Capillary Refill Less than 3 Seconds Skin: No rashes, No breakdown, - - had ?trackmarks on the dorsum of her feet bilaterally Musculoskeletal: No Tenderness to Palpation of Joints or Extremities Lymphatic: No Cervical, Supraclavicular, or Inguinal Adenopathy Neurological: Cranial nerves II-XII grossly intact, Neuro grossly intact Psych/Mental Status: Normal Affect Laboratory Results 04/15/18 19:59: MRSA (PCR) Negative 04/15/18 20:50: Specimen Type ART, Sample Site R Radial, pH 7.22 L, Bicarbonate Actual 24.5, POC Total CO2 26, Base Excess -3 L, O2 Saturation 93 L, O2 % 45, ABG pCO2 59.5 H, ABG pO2 82, Yvan Test POS, Respiration Rate 14, O2 Delivery Device Vent, Minute Volume 7.00, Vent Mode A-C, Tidal Volume 450, POC PEEP 5, Blood Gas Notified Whom GARRISON PALMER, Blood Gas Notified Time 203904/15/18 21:00: Magnesium 2.2, Troponin I 1.450 H* 04/15/18 21:15: POC Glucose 147 H 04/15/18 23:05: Lactic Acid 1.6 04/15/18 23:07: Specimen Type ART, Sample Site R Radial, pH 7.26 L, Bicarbonate Actual 25.6, POC Total CO2 27, Base Excess -1, O2 Saturation 92 L, O2 % 40, ABG pCO2 56.8 H, ABG pO2 73 L, Yvan Test POS, Respiration Rate 14, O2 Delivery Device Vent, Minute Volume 7.00, Vent Mode A-C, Tidal Volume 500, POC PEEP 5, Blood Gas Notified Whom HOSP , Blood Gas Notified Time 2255 04/15/18 23:30: Troponin I 0.929 H* 04/16/18 02:20: Troponin I 0.802 H* 04/16/18 05:30: WBC 7.4, RBC 3.60 L, Hgb 11.0 L, Hct 34.5 L, MCV 95.8, MCH 30.6 , MCHC 31.9 L, RDW 13.0, RDW Differential 45.6 H, Plt Count 195, MPV 11.3 04/16/18 05:30: Sodium 140, Potassium 3.8, Chloride 103, Carbon Dioxide 29.0, Anion Gap 8, BUN 20 H, Creatinine 0.66, Estim Creat Clear Calc 82.48, Est GFR ( MDRD) Af Amer 121, Est GFR (MDRD) Non-Af 100, BUN/Creatinine Ratio 30.3 H, Glucose 177 H, Calcium 7.8 L, Triglycerides 58, Cholesterol 64, LDL Cholesterol 18, VLDL Cholesterol 12, HDL Cholesterol 34 L 04/16/18 05:40: Specimen Type ART, Sample Site L Radial, pH 7.31 L, Bicarbonate Actual 26.7 H, POC Total CO2 28, Base Excess 0, O2 Saturation 93 L, O2 % 40, ABG pCO2 53.6 H, ABG pO2 73 L, Yvan Test POS, Respiration Rate 16, O2 Delivery Device Vent, Minute Volume 8.00, Vent Mode A-C, Tidal Volume 500, POC PEEP 5, Blood Gas Notified Whom ICU , Blood Gas Notified Time 530 04/16/18 06:04: POC Glucose 198 H Current Medications Acetaminophen (Tylenol Liquid) 650 mg GT Q4H PRN PRN PRN Reason: PAIN/FEVER Albuterol Sulfate (Ventolin Aerosols) 2.5 mg INHALATION Q2H PRN PRN PRN Reason: SHORTNESS OF BREATH Last Admin: 04/15/18 21:02 Dose: 2.5 mg Albuterol/Ipratropium (Duoneb) 3 ml INHALATION Q4H.RT [facility] Last Admin: 04/16/18 06:36 Dose: 3 ml Aspirin (Aspirin) 300 mg RECTAL DAILY [facility] Chlorhexidine Gluconate () 15 ml PO BID [facility] Last Admin: 04/15/18 22:19 Dose: 15 ml Chlorhexidine Gluconate () 1 each TOPICAL DAILY [facility] Enoxaparin Sodium (Lovenox) 40 mg SC DAILY@1000 [facility] Last Admin: 04/15/18 21:48 Dose: 40 mg Famotidine (Pepcid) 20 mg GT BID [facility] Last Admin: 04/15/18 22:18 Dose: 20 mg Propofol (Diprivan) 1,000 mg in 100 mls @ 1.794 mls/hr CONT INF .Q12H [facility]; 5 MCG/KG/MIN PRN Reason: Protocol Last Admin: 04/15/18 21:43 Dose: 1.794 mls/hr Fentanyl () 100 mls @ 2.5 mls/hr IV .Q40H [facility] PRN Reason: Protocol Last Admin: 04/16/18 05:21 Dose: 2.5 mls/hr Aztreonam 2 gm/ Dextrose 100 mls @ 150 mls/hr IV Q8 [facility] Last Admin: 04/16/18 05:20 Dose: 150 mls/hr Potassium Chloride/Sodium Chloride () 1,000 mls @ 100 mls/hr IV .Q10H [facility] Last Admin: 04/15/18 21:42 Dose: 100 mls/hr Levofloxacin 500 mg/ N/A 100 mls @ 100 mls/hr IV Q24 [facility] Vancomycin HCl 1,250 mg/ (Sodium Chloride) 275 mls @ 183.333 mls/hr IV Q12H [facility] Amiodarone HCl 360 mg/ (Dextrose) 200 mls @ 16.66 mls/hr CONT INF .Q12H1M [facility] PRN Reason: 0.5 MG/MIN Stop: 04/17/18 02:10 Last Admin: 04/16/18 08:36 Dose: 16.66 mls/hr Magnesium Hydroxide (Milk Of Magnesia) 30 ml PO DAILY PRN PRN PRN Reason: Constipation Methylprednisolone (Solu-Medrol) 40 mg IV Q8 [facility] Last Admin: 04/16/18 05:21 Dose: 40 mg Morphine Sulfate () 1 - 2 mg IV Q4H PRN PRN PRN Reason: SEVERE PAIN (6-10/10) Ondansetron HCl (Zofran) 4 mg IV Q4H PRN PRN PRN Reason: NAUSEA Oxycodone HCl (Oxyir) 5 mg GT Q4H PRN PRN PRN Reason: MOD-SEVERE PAIN (-07/17) Promethazine HCl (Phenergan) 12.5 mg IV Q6H PRN PRN PRN Reason: NAUSEA/VOMITING Senna/Docusate Sodium (Senokot-S, Venessa-Colace) 2 tablet GT BID PRN PRN Reason: Constipation Sodium Chloride () 5 - 30 ml IV UD PRN PRN Reason: SALINE FLUSH Last Admin: 04/16/18 05:22 Dose: 10 ml Medical Necessity - Tobacco Use Smoking Status: Former smoker Assessment/Plan All Active Problems (Last Reviewed 12/13/17 @ 07:47 by Vanessa Zamora) Acute on chronic respiratory failure with hypoxia and hypercapnia (Acute) Multifocal possible HCAP (Acute) Elevated troponin (Acute) NSTEMI (non-ST elevated myocardial infarction) (Acute) SVT (supraventricular tachycardia) (Acute) History of cholecystectomy (Resolved) History of appendectomy (Resolved) History of dilatation and curettage (Resolved) History of left oophorectomy (Resolved) History of section (Resolved) 53-year-old female admitted with complaint of shortness of breath cough and altered mental status. She was intubated on account of acute respiratory failure. 1. Severe sepsis due to health associated pneumonia * on admission, SIRS criteria was 2/4(tachycardia, tachypnea,), lactic acid was mildly elevated at 2.1, and focus of infection was pneumonia * has no leucocytosis. * SIRS criteria now 0/4 * CXR showed: * on IV vancomycin, aztreonam and levaquin. Has multiple medication allergies * blood cultures and sputum cultures pending * CXR today: improvement of aeration of both lungs, with residual reticular nodular infiltrates worse on left side * urine for strep pneumoniae and legionella were negative. * will await blood cultures and urine cultures * intubated and sedated. On fentanyl drip * 2. Acute on chronic hypercarbic respiratory failure due to health associated pneumonia * intubated in the ED * has chronic respiratory failure due to COPD, and is on 2L of oxygen at home * vent settings: AC/VC. TV-500mls, PEEP-5, RR-12, FiO2-40% * ABG today: pH-7.31, pCO2-53.6, pO2-73, * breathing treatments with albuterol and atrovent * ciaio counter molder on board * IV solumedrol * 3. SVT * Went into SVT in the ED. IV metoprolol prn didnt help with the elevated heart rate. Had sustained SVT overnight and was started on amiodarone drip. * Heart rate is 93 at time of review. * Cardiology on board. Will monitor. * 4. NSTEMI * troponin was 1.08 on admission ->1.45->0.929->0.802 * EKG showed:slight ST depression in lateral and inferior leads. * cardiology on board * 2D echo pending; on aspirin and statin. * 5. Metabolic encephalopathy due to sepsis * admitted with altered mental status. Now resolving. RASS score is 1, on diprivan drip * likely due to sepsis * will monitor 6. COPD: on 2L baseline at home. Currently intubated and sedated. On breathing treatments and steroids. Chest physiotherapy 7. Nutrition: will start tube feeding. Other medical problems: 8. GERD 9. Mitral valve prolapse 10. Nicotine dependence DVT prpophylaxis: lovenox GI prophylaxis: famotidine Code status: full code. This note was generated with [employer] software. It may contain incorrect words, spelling, and punctuation that were not noted in checking the note before signing. Code Visit Inpatient E&M: 63304 Subs Hosp L3
[2018-04-16] MEDS: Aspirin 81 MG TAB.CHEW GT (09:55)
[2018-04-16] MEDS: Polyethylene Glycol 3350 17 GM PACKET GT ×2 (09:55→21:19)
[2018-04-16] MEDS: Senna/Docusate Sodium 1 Tablet 2 TABLET GT ×2 (09:55→21:18)
[2018-04-16] MEDS: Famotidine 20 MG Tablet GT ×2 (09:55→21:18)
[2018-04-16] MEDS: Enoxaparin 40 MG/0.4 ML Syringe SC (09:55)
[2018-04-16] MEDS: CHLORHEXIDINE GLUC 2% CLOTH 1 EACH TOWELETTE TOPICAL (09:56)
[2018-04-16] MEDS: Chlorhexidine 15 ML PO ×2 (09:56→21:39)
--- NOTE | 2018-04-16 11:43 | CASEMGMT ---
See [facility] Assessment Link. DC PLAN: undetermined. -PT/OT ordered, will evaluate once pt is med stable. -Son stated he lives with pt and has been assisting with her care needs. He works so is not able to be home continuously. -Pt has MRDD daughter who is independent except not allowed to use stove. -[facility] discussed possible dc needs of Home Health or short term rehab pending pt's recovery. Jese WALKER RN ACM
[2018-04-16 12:15] LABS: Bedside Glucose 155 mg/dL (70-110)
[2018-04-16] MEDS: Insulin Lispro 100 UNIT/ML INSULN.PEN SC ×3 (12:17→23:13)
[2018-04-16] MEDS: Vital AF 1.2 Cal Liquid 1,000 ML 60 ML GT (12:17)
[2018-04-16 16:03] LABS: Pathologist Review Reviewed
[2018-04-16 18:41] LABS: Bedside Glucose 157 mg/dL (70-110)
[2018-04-16] MEDS: Enoxaparin 60 MG/0.6 ML Syringe SC (21:18)
[2018-04-16 23:20] LABS: Bedside Glucose 163 mg/dL (70-110)
[2018-04-17] VITALS (40 sets, daily range): BP systolic 103–126; BP diastolic 57–76; PULSE 88–121; RESP 12–29; TEMP 37.1–38.2; O2SAT 90–100
[2018-04-17 04:37] LABS: Anion Gap 9 (5-15); BUN 23 mg/dL (7-18); BUN/Creat Ratio 46.3 RATIO (10-20); Calcium,Total 8.2 mg/dL (8.5-10.1); Chloride 101 mmol/L (98-107); EST Glomerular Filtration Rate 139 mL/min (>60); Est Glom Filt Rate - Afr Amer 168 mL/min (>60); Estimated Creatinine Clearance 108.88 ml/min; Glucose 167 mg/dL (74-106); Potassium 3.3 mmol/L (3.5-5.1); Sodium Level 141 mmol/L (136-145)
[2018-04-17 05:08] LABS: Hematocrit 30.7 % (37-47); Hemoglobin 10.1 g/dl (12.0-15.0); Mean Corp Hgb Conc 32.9 g/gl (32-36); Mean Corpuscular Hgb 31.1 pg (27.0-32.0); Mean Corpuscular Volume 94.5 fL (81-99); RBC Distribution Width CV 13.1 % (11.6-14.6); RBC Distribution Width SD 45.7 fl (35.1-43.9); Red Blood Count 3.25 M/mm3 (4.2-5.4); White Blood Count 8.1 K/mm3 (4.4-11.0)
[2018-04-17] MEDS: Insulin Lispro 100 UNIT/ML INSULN.PEN SC ×4 (05:08→22:07)
[2018-04-17] MEDS: 0.9% NaCl Peripheral Flush Adult/Peds IV ×3 (05:08→22:17)
[2018-04-17 05:09] LABS: Absolute Lymphocyte Count 0.78 X10^3/ul (0.83-4.51); Absolute Neutrophil Count 6.3 X10^3/uL (2.0-7.7); Basophil# 0.04 X10^3/uL; Basophil% 0.5 % (0-1); Lymphocyte # 0.78 X10^3/ul (4.0); Lymphocyte % 9.6 % (19-41); Monocyte# 0.86 X10^3/uL; Monocyte% 10.6 % (0-10); NRBC Flagged by Analyzer 0.9 % (0-5); Neutrophil # 6.34 X10^3/uL (2.7-7.7); Neutrophil % 78.1 % (47-70); POSITIVE COUNT NO; POSITIVE DIFFERENTIAL NO; POSITIVE MORPHOLOGY NO; Platelet Count 192 K/mm3 (150-450)
[2018-04-17 05:10] LABS: Absolute Nucleated RBC Count 0.07 10^3/uL (0-5)
[2018-04-17] MEDS: CHLORHEXIDINE GLUC 2% CLOTH 1 EACH TOWELETTE TOPICAL (05:11)
[2018-04-17 05:26] LABS: Bedside Glucose 157 mg/dL (70-110)
[2018-04-17 06:16] LABS: Allen Test POS; Base Excess 6 mmol/L (-2 to +2); Bicarbonate 30.8 mmol/L (22-26); Blood Gas Specimen Type ART; FI02 40; IPAP 5; PO2 86 mmHG (75-100); SITE L Radial; SO2 96 % (95-99); Total Carbon Dioxide 32 mmol/L; pCO2 52.8 mmHg (35-45); pH 7.37 (7.35-7.45)
[2018-04-17] MEDS: Ipratropium/Albuterol Sulfate 3 ML AMPUL.NEB INHALATION ×5 (06:30→23:04)
--- NOTE | 2018-04-17 06:49 | NURSING ---
Extubated at 0645 via respiratory therapist and assist from this RN. 4L NC placed at time of extubation, patient tolerating well.
[2018-04-17 07:58] LABS: Magnesium 2.5 mg/dL (1.6-2.6)
[2018-04-17] MEDS: Albuterol 2.5 MG/3 ML VIAL.NEB. INHALATION (07:59)
--- NOTE | 2018-04-17 08:22 | PCM.PN.CARD ---
Subjectve: Patient seen this morning. Has just been extubated. No cardiac complaints. Just a little short of breath. Objective: Vital Signs Temp Pulse Resp BP Pulse Ox 98.8 F 109 H 15 106/62 94 04/17/18 08:00 04/17/18 08:00 04/17/18 08:00 04/17/18 08:00 04/17/18 08:00 Oxygen Flow Rate (L/min) 4 Oxygen Delivery Method Nasal Cannula Weight: 140 lb 10.479 oz Body Mass Index (BMI) 23.3 Intake and Output for Last 24 Hours 04/15/18 04/16/18 04/17/18 23:59 23:59 23:59 Intake Total 3832.9 / 3832.9 656.1 / 656.1 Output Total 1055 / 1055 250 / 250 Balance 2777.9 / 2777.9 406.1 / 406.1 General: Awake, Alert, Oriented x 3 HEENT: PERRL, EOMI, Sclera Non Icteric Neck: Supple, Good ROM, No Lymph Node Enlargement Lungs: Expiratory Wheezes-Mika Cardiovascular: Regular Rhythm, Normal S1, Normal S2, No Murmurs, No Rubs, No Gallops Vascular: No Carotid Bruits, Normal Femoral Pulses, Normal Radial Pulses, Normal Dorsalis Pedal Pulse, Normal Posterior Tibial Pulses Abdomen: Bowel Sounds Present, Soft, Non Tender, No HSM, No Organomegaly Extremities: No Cyanosis, No Clubbing, No edema Neurological: No Focal Motor or Sensory Deficit 04/17/18 03:55: WBC 8.1, RBC 3.25 L, Hgb 10.1 L, Hct 30.7 L, MCV 94.5, MCH 31.1, MCHC 32.9, RDW 13.1, RDW Differential 45.7 H, Plt Count 192, MPV 11.0, Immature Gran % (Auto) 1.200 H, Neut % (Auto) 78.1 H, Lymph % (Auto) 9.6 L, [place] % (Auto) 10.6 H, Eos % (Auto) 0.0, Baso % (Auto) 0.5, Absolute Neuts (auto) 6.3, Total Counted Not Reportable, Nucleated RBC % 0.9 04/17/18 03:55: Sodium 141, Potassium 3.3 L, Chloride 101, Carbon Dioxide 31.0, Anion Gap 9, BUN 23 H, Creatinine 0.50 L, Est GFR (MDRD) Af Amer 168, Est GFR (MDRD) Non-Af 139, BUN/Creatinine Ratio 46.3 H, Glucose 167 H, Calcium 8.2 L 04/17/18 03:55: Magnesium 2.5 04/17/18 06:11: pH 7.37, Bicarbonate Actual 30.8 H, POC Total CO2 32, Base Excess 6 H, O2 Saturation 96, ABG pCO2 52.8 H, ABG pO2 86, Yvan Test POS Rhythm: EKG: ECHO: Stress Test: Cardiac Cath: PCI: CT Surgery: Holter monitor: EPS: PPM: CXR: Chest CT Scan: Medical Necessity - Tobacco Use Smoking Status: Former smoker Assessment/Plan 1. Non-ST elevation myocardial infarction The patient presents with respiratory distress and is noted to have EKG changes and a non-ST elevation myocardial infarction. She appears to be doing better at this time with her ejection fraction noted to be normal by echocardiographic evaluation. Recommendation at this time will be to treat the underlying sepsis. Aspirin Will continue on anticoagulation at this time. She will eventually need an evaluation of her coronary anatomy. I did discuss this with the patient's son, and he is in agreement. High intensity statin 2. Supraventricular tachycardia Patient is having runs of supraventricular tachycardia. These appear to have abated and has not had any since last night. Will continue to administer aliquots of beta-doretha as blood pressure tolerates Will start oral beta-doretha later this afternoon if patient is stable. Thank you for allowing me to participate in the care of your patient. Please don't hesitate to call if any issues arise
--- NOTE | 2018-04-17 08:25 | PN.CARD_ITS ---
Subjectve: Patient seen this morning. Has just been extubated. No cardiac complaints. Just a little short of breath. Objective: Vital Signs Temp Pulse Resp BP Pulse Ox 98.8 F 109 H 15 106/62 94 04/17/18 08:00 04/17/18 08:00 04/17/18 08:00 04/17/18 08:00 04/17/18 08:00 Oxygen Flow Rate (L/min) 4 Oxygen Delivery Method Nasal Cannula Weight: 140 lb 10.479 oz Body Mass Index (BMI) 23.3 Intake and Output for Last 24 Hours 04/15/18 04/16/18 04/17/18 23:59 23:59 23:59 Intake Total 3832.9 / 3832.9 656.1 / 656.1 Output Total 1055 / 1055 250 / 250 Balance 2777.9 / 2777.9 406.1 / 406.1 General: Awake, Alert, Oriented x 3 HEENT: PERRL, EOMI, Sclera Non Icteric Neck: Supple, Good ROM, No Lymph Node Enlargement Lungs: Expiratory Wheezes-Mika Cardiovascular: Regular Rhythm, Normal S1, Normal S2, No Murmurs, No Rubs, No Gallops Vascular: No Carotid Bruits, Normal Femoral Pulses, Normal Radial Pulses, Normal Dorsalis Pedal Pulse, Normal Posterior Tibial Pulses Abdomen: Bowel Sounds Present, Soft, Non Tender, No HSM, No Organomegaly Extremities: No Cyanosis, No Clubbing, No edema Neurological: No Focal Motor or Sensory Deficit 04/17/18 03:55: WBC 8.1, RBC 3.25 L, Hgb 10.1 L, Hct 30.7 L, MCV 94.5, MCH 31.1 , MCHC 32.9, RDW 13.1, RDW Differential 45.7 H, Plt Count 192, MPV 11.0, Immature Gran % (Auto) 1.200 H, Neut % (Auto) 78.1 H, Lymph % (Auto) 9.6 L, [place] % (Auto) 10.6 H, Eos % (Auto) 0.0, Baso % (Auto) 0.5, Absolute Neuts (auto ) 6.3, Total Counted Not Reportable, Nucleated RBC % 0.9 04/17/18 03:55: Sodium 141, Potassium 3.3 L, Chloride 101, Carbon Dioxide 31.0, Anion Gap 9, BUN 23 H, Creatinine 0.50 L, Est GFR (MDRD) Af Amer 168, Est GFR ( MDRD) Non-Af 139, BUN/Creatinine Ratio 46.3 H, Glucose 167 H, Calcium 8.2 L 04/17/18 03:55: Magnesium 2.5 04/17/18 06:11: pH 7.37, Bicarbonate Actual 30.8 H, POC Total CO2 32, Base Excess 6 H, O2 Saturation 96, ABG pCO2 52.8 H, ABG pO2 86, Yvan Test POS Rhythm: EKG: ECHO: Stress Test: Cardiac Cath: PCI: CT Surgery: Holter monitor: EPS: PPM: CXR: Chest CT Scan: Medical Necessity - Tobacco Use Smoking Status: Former smoker Assessment/Plan 1. Non-ST elevation myocardial infarction The patient presents with respiratory distress and is noted to have EKG changes and a non-ST elevation myocardial infarction. * She appears to be doing better at this time with her ejection fraction noted to be normal by echocardiographic evaluation. * Recommendation at this time will be to treat the underlying sepsis. * Aspirin * Will continue on anticoagulation at this time. * She will eventually need an evaluation of her coronary anatomy. I did discuss this with the patient's son, and he is in agreement. * High intensity statin * 2. Supraventricular tachycardia * Patient is having runs of supraventricular tachycardia. These appear to have abated and has not had any since last night. * Will continue to administer aliquots of beta-doretha as blood pressure tolerates * Will start oral beta-doretha later this afternoon if patient is stable. * Thank you for allowing me to participate in the care of your patient. Please don't hesitate to call if any issues arise
--- NOTE | 2018-04-17 08:48 | PN_ITS ---
Subjective: Patient did well overnight. Patient did continue to have periodic events of SVT with heart rates in the 160s, but tolerated this well. Patient was also noted to have a fever of 38.2?C. Patient was able to be placed on spontaneous breathing trial this morning. ABG at the end was acceptable and patient was liberated from the ventilator without complication under my direct supervision. Patient reported mild shortness of breath on extubation, but otherwise had no complaints. General: Alert, Cooperative, No apparent distress, - - Appears older than stated age. Speaking in full sentences. HEENT: Atraumatic, PERRLA, EOMI, Normocephalic, - - No scleral icterus or injection noted. Glasses in place. Oral: Moist Mucosa, No Gingival or Mucosal Lesions/ Ulcerations Neck: Supple, No JVD, No Nodes, Trachea Midline Lungs: No rhonchi, No rales, Diminished, Wheezes, - - Symmetric expansion. No dullness to percussion. Cardiovascular: Normal S1, Normal S2, No murmurs, No rub noted, No Gallop, Tachycardic Abdomen: Bowel Sounds Present, Soft, Non Tender, Non-Distended Extremities: No clubbing, No cyanosis, No edema Skin: - - Grossly unchanged compared to previous Musculoskeletal: No Tenderness to Palpation of Joints or Extremities, No Muscle Wasting Lymphatic: No Cervical, Supraclavicular, or Inguinal Adenopathy Neurological: Cranial nerves II-XII grossly intact, Neuro grossly intact, Motor Exam 5/5 strength throughout Psych/Mental Status: Normal Affect, Appropriate Vital Signs Temp Pulse Resp BP Pulse Ox 37.1 C 109 H 15 106/62 94 04/17/18 08:00 04/17/18 08:00 04/17/18 08:00 04/17/18 08:00 04/17/18 08:00 Oxygen Flow Rate (L/min) 4 Oxygen Delivery Method Nasal Cannula Weight: 63.8 kg Body Mass Index (BMI) 23.3 Intake and Output for Last 24 Hours 04/15/18 04/16/18 04/17/18 23:59 23:59 23:59 Intake Total 3832.9 / 3832.9 656.1 / 656.1 Output Total 1055 / 1055 250 / 250 Balance 2777.9 / 2777.9 406.1 / 406.1 Labs (Last 48 Hours) 04/15/18 04/15/18 04/15/18 19:59 20:50 21:00 WBC RBC Hgb Hct MCV MCH MCHC RDW RDW Differential Plt Count MPV Immature Gran % (Auto) Neut % (Auto) Lymph % (Auto) [place] % (Auto) Eos % (Auto) Baso % (Auto) Absolute Neuts (auto) Absolute Lymphs (auto) Total Counted Nucleated RBC % Absolute Retic Specimen Type ART Sample Site R Radial pH 7.22 L Bicarbonate Actual 24.5 POC Total CO2 26 Base Excess -3 L O2 Saturation 93 L O2 % 45 ABG pCO2 59.5 H ABG pO2 82 Yvan Test POS Respiration Rate 14 O2 Delivery Device Vent Minute Volume 7.00 Vent Mode A-C Tidal Volume 450 POC PEEP 5 IPAP Blood Gas Notified Whom [facility] Blood Gas Notified Time 2039 Sodium Potassium Chloride Carbon Dioxide Anion Gap BUN Creatinine Estim Creat Clear Calc Est GFR (MDRD) Af Amer Est GFR (MDRD) Non-Af BUN/Creatinine Ratio Glucose Lactic Acid Calcium Magnesium 2.2 Troponin I 1.450 H* Triglycerides Cholesterol LDL Cholesterol VLDL Cholesterol HDL Cholesterol MRSA (PCR) Negative POC Glucose 04/15/18 04/15/18 04/15/18 21:15 23:05 23:07 WBC RBC Hgb Hct MCV MCH MCHC RDW RDW Differential Plt Count MPV Immature Gran % (Auto) Neut % (Auto) Lymph % (Auto) [place] % (Auto) Eos % (Auto) Baso % (Auto) Absolute Neuts (auto) Absolute Lymphs (auto) Total Counted Nucleated RBC % Absolute Retic Specimen Type ART Sample Site R Radial pH 7.26 L Bicarbonate Actual 25.6 POC Total CO2 27 Base Excess -1 O2 Saturation 92 L O2 % 40 ABG pCO2 56.8 H ABG pO2 73 L Yvan Test POS Respiration Rate 14 O2 Delivery Device Vent Minute Volume 7.00 Vent Mode A-C Tidal Volume 500 POC PEEP 5 IPAP Blood Gas Notified Whom [facility] Blood Gas Notified Time 225 Sodium Potassium Chloride Carbon Dioxide Anion Gap BUN Creatinine Estim Creat Clear Calc Est GFR (MDRD) Af Amer Est GFR (MDRD) Non-Af BUN/Creatinine Ratio Glucose Lactic Acid 1.6 Calcium Magnesium Troponin I Triglycerides Cholesterol LDL Cholesterol VLDL Cholesterol HDL Cholesterol MRSA (PCR) POC Glucose 147 H 04/15/18 04/16/18 04/16/18 23:30 02:20 05:30 WBC 7.4 RBC 3.60 L Hgb 11.0 L Hct 34.5 L MCV 95.8 MCH 30.6 MCHC 31.9 L RDW 13.0 RDW Differential 45.6 H Plt Count 195 MPV 11.3 Immature Gran % (Auto) Neut % (Auto) Lymph % (Auto) [place] % (Auto) Eos % (Auto) Baso % (Auto) Absolute Neuts (auto) Absolute Lymphs (auto) Total Counted Nucleated RBC % Absolute Retic Specimen Type Sample Site pH Bicarbonate Actual POC Total CO2 Base Excess O2 Saturation O2 % ABG pCO2 ABG pO2 Yvan Test Respiration Rate O2 Delivery Device Minute Volume Vent Mode Tidal Volume POC PEEP IPAP Blood Gas Notified Whom Blood Gas Notified Time Sodium Potassium Chloride Carbon Dioxide Anion Gap BUN Creatinine Estim Creat Clear Calc Est GFR (MDRD) Af Amer Est GFR (MDRD) Non-Af BUN/Creatinine Ratio Glucose Lactic Acid Calcium Magnesium Troponin I 0.929 H* 0.802 H* Triglycerides Cholesterol LDL Cholesterol VLDL Cholesterol HDL Cholesterol MRSA (PCR) POC Glucose 04/16/18 04/16/18 04/16/18 05:30 05:40 06:04 WBC RBC Hgb Hct MCV MCH MCHC RDW RDW Differential Plt Count MPV Immature Gran % (Auto) Neut % (Auto) Lymph % (Auto) [place] % (Auto) Eos % (Auto) Baso % (Auto) Absolute Neuts (auto) Absolute Lymphs (auto) Total Counted Nucleated RBC % Absolute Retic Specimen Type ART Sample Site L Radial pH 7.31 L Bicarbonate Actual 26.7 H POC Total CO2 28 Base Excess 0 O2 Saturation 93 L O2 % 40 ABG pCO2 53.6 H ABG pO2 73 L Yvan Test POS Respiration Rate 16 O2 Delivery Device Vent Minute Volume 8.00 Vent Mode A-C Tidal Volume 500 POC PEEP 5 IPAP Blood Gas Notified Whom ICU MD Blood Gas Notified Time 530 Sodium 140 Potassium 3.8 Chloride 103 Carbon Dioxide 29.0 Anion Gap 8 BUN 20 H Creatinine 0.66 Estim Creat Clear Calc 82.48 Est GFR (MDRD) Af Amer 121 Est GFR (MDRD) Non-Af 100 BUN/Creatinine Ratio 30.3 H Glucose 177 H Lactic Acid Calcium 7.8 L Magnesium Troponin I Triglycerides 58 Cholesterol 64 LDL Cholesterol 18 VLDL Cholesterol 12 HDL Cholesterol 34 L MRSA (PCR) POC Glucose 198 H 04/16/18 04/16/18 04/16/18 12:07 18:29 23:10 WBC RBC Hgb Hct MCV MCH MCHC RDW RDW Differential Plt Count MPV Immature Gran % (Auto) Neut % (Auto) Lymph % (Auto) [place] % (Auto) Eos % (Auto) Baso % (Auto) Absolute Neuts (auto) Absolute Lymphs (auto) Total Counted Nucleated RBC % Absolute Retic Specimen Type Sample Site pH Bicarbonate Actual POC Total CO2 Base Excess O2 Saturation O2 % ABG pCO2 ABG pO2 Yvan Test Respiration Rate O2 Delivery Device Minute Volume Vent Mode Tidal Volume POC PEEP IPAP Blood Gas Notified Whom Blood Gas Notified Time Sodium Potassium Chloride Carbon Dioxide Anion Gap BUN Creatinine Estim Creat Clear Calc Est GFR (MDRD) Af Amer Est GFR (MDRD) Non-Af BUN/Creatinine Ratio Glucose Lactic Acid Calcium Magnesium Troponin I Triglycerides Cholesterol LDL Cholesterol VLDL Cholesterol HDL Cholesterol MRSA (PCR) POC Glucose Pending 157 H 163 H 04/17/18 04/17/18 04/17/18 03:55 03:55 03:55 WBC 8.1 RBC 3.25 L Hgb 10.1 L Hct 30.7 L MCV 94.5 MCH 31.1 MCHC 32.9 RDW 13.1 RDW Differential 45.7 H Plt Count 192 MPV 11.0 Immature Gran % (Auto) 1.200 H Neut % (Auto) 78.1 H Lymph % (Auto) 9.6 L [place] % (Auto) 10.6 H Eos % (Auto) 0.0 Baso % (Auto) 0.5 Absolute Neuts (auto) 6.3 Absolute Lymphs (auto) 0.78 L Total Counted Not Reportable Nucleated RBC % 0.9 Absolute Retic 0.07 Specimen Type Sample Site pH Bicarbonate Actual POC Total CO2 Base Excess O2 Saturation O2 % ABG pCO2 ABG pO2 Yvan Test Respiration Rate O2 Delivery Device Minute Volume Vent Mode Tidal Volume POC PEEP IPAP Blood Gas Notified Whom Blood Gas Notified Time Sodium 141 Potassium 3.3 L Chloride 101 Carbon Dioxide 31.0 Anion Gap 9 BUN 23 H Creatinine 0.50 L Estim Creat Clear Calc 108.88 Est GFR (MDRD) Af Amer 168 Est GFR (MDRD) Non-Af 139 BUN/Creatinine Ratio 46.3 H Glucose 167 H Lactic Acid Calcium 8.2 L Magnesium 2.5 Troponin I Triglycerides Cholesterol LDL Cholesterol VLDL Cholesterol HDL Cholesterol MRSA (PCR) POC Glucose 04/17/18 04/17/18 05:07 06:11 WBC RBC Hgb Hct MCV MCH MCHC RDW RDW Differential Plt Count MPV Immature Gran % (Auto) Neut % (Auto) Lymph % (Auto) [place] % (Auto) Eos % (Auto) Baso % (Auto) Absolute Neuts (auto) Absolute Lymphs (auto) Total Counted Nucleated RBC % Absolute Retic Specimen Type ART Sample Site L Radial pH 7.37 Bicarbonate Actual 30.8 H POC Total CO2 32 Base Excess 6 H O2 Saturation 96 O2 % 40 ABG pCO2 52.8 H ABG pO2 86 Yvan Test POS Respiration Rate O2 Delivery Device Bi / C PAP Minute Volume Vent Mode Tidal Volume POC PEEP IPAP 5 Blood Gas Notified Whom ICU MD Blood Gas Notified Time Sodium Potassium Chloride Carbon Dioxide Anion Gap BUN Creatinine Estim Creat Clear Calc Est GFR (MDRD) Af Amer Est GFR (MDRD) Non-Af BUN/Creatinine Ratio Glucose Lactic Acid Calcium Magnesium Troponin I Triglycerides Cholesterol LDL Cholesterol VLDL Cholesterol HDL Cholesterol MRSA (PCR) POC Glucose 157 H Microbiology 04/15/18 21:30 Sputum, Induced/Lukens Gram Stain - Final Clinical Impression(s) from Imaging Studies Chest X-Ray 04/16/18 05:55 IMPRESSION: The support tubes are in good position. Since prior study, there has been improved aeration of both lungs with residual reticular nodular infiltrates worse on the left side. Electronically Signed: Crow Gibson MD at 8:44 EDT Tel [phone], Service support , Medical Necessity - Tobacco Use Smoking Status: Former smoker Assessment/Plan All Active Problems (Last Reviewed 12/13/17 @ 07:47 by Vanessa Zamora) Acute on chronic respiratory failure with hypoxia and hypercapnia (Acute) Multifocal possible HCAP (Acute) Elevated troponin (Acute) NSTEMI (non-ST elevated myocardial infarction) (Acute) SVT (supraventricular tachycardia) (Acute) History of cholecystectomy (Resolved) History of appendectomy (Resolved) History of dilatation and curettage (Resolved) History of left oophorectomy (Resolved) History of section (Resolved) RECOMMENDATIONS: 1. Continue bronchodilators, steroids and antibiotics 2. Wean oxygen as tolerated. Incentive spirometer 3. Increase activity as tolerated 4. Amiodarone and cardiac investigation per cardiology 5. Okay to increase beta-doretha if blood pressure allows IMPRESSIONS: 1. Acute on chronic combined respiratory failure Exact etiology is unclear at this time. Patient did have SVT on presentation and may have an element of acute on chronic diastolic heart failure. Patient appears to have responded well to therapy. Patient has been liberated from ventilator. Will encourage incentive spirometer and wean oxygen as tolerated. Cardiology is currently seeing patient for SVT and has continued amiodarone. Patient may require cardiac catheterization in the future. 2. Non-ST elevation NC/SVT Unclear if this is secondary to hypoxemia versus a malignant rhythm with baseline coronary obstruction. Cardiology is currently following. No indication for further troponin measurement. Patient is on aspirin, but Lovenox is only on DVT prophylaxis. Defer to cardiology on whether this needs to be increased to full anticoagulation. 3. Severe sepsis secondary to possible pneumonia Patient with reported fever, tachycardia and hypoxemia on presentation. Patient does have increased infiltrates noted on chest x-ray, but no leukocytosis is appreciated. Pneumonia workup is currently underway. If cultures negative at 48 hours, likely discontinue antibiotics. Elevated lactate may be secondary to global hypoxemia. 4. Metabolic encephalopathy She was significant CO2 retention on presentation. Patient is on supplemental oxygen at baseline. This appears to be improving. Patient is on fentanyl. Okay to use propofol if necessary. 5. Bipolar disorder/history of diverticulitis/mitral valve prolapse/chronic pain syndrome/GERD/hypothyroidism Complicates care, management, recovery and prognosis. Likely okay to continue with baseline medications. TIME: 38 minutes critical care time spent addressing patient's acute on chronic combined respiratory failure, non-ST elevation NC, severe sepsis, review of all data and collaboration with care team. (5:30 AM to 6:30 AM) Code Visit [id number]: [id number] Critical care first hour
--- NOTE | 2018-04-17 09:36 | PCM.PN.HOSP ---
Patient Problems: Active and Suspected Problems (Last Reviewed 12/13/17 @ 07:47 by Vanessa Zamora) Acute on chronic respiratory failure with hypoxia and hypercapnia (Acute) Multifocal possible HCAP (Acute) Elevated troponin (Acute) NSTEMI (non-ST elevated myocardial infarction) (Acute) SVT (supraventricular tachycardia) (Acute) Subjective: Patient seen and examined this morning. She was successfully extubated yesterday and is currently on 2 L of oxygen. She denied any fever or chills, any chest pain, any shortness of breath, any abdominal pain, or vomiting. She does have a dry cough due to the fact that she was intubated. Review of systems otherwise negative. Was noted to have fever overnight with temperature began to 100.7. Vitals/I&O's: Vital Signs Temp Pulse Resp BP Pulse Ox 98.8 F 109 H 15 106/62 94 04/17/18 08:00 04/17/18 08:00 04/17/18 08:00 04/17/18 08:00 04/17/18 08:00 Oxygen Flow Rate (L/min) 4 Oxygen Delivery Method Nasal Cannula Weight: 140 lb 10.479 oz Body Mass Index (BMI) 23.3 Intake and Output for Last 24 Hours 04/15/18 04/16/18 04/17/18 23:59 23:59 23:59 Intake Total 3832.9 / 3832.9 656.1 / 656.1 Output Total 1055 / 1055 250 / 250 Balance 2777.9 / 2777.9 406.1 / 406.1 General: Alert, Oriented x3, Cooperative, No apparent distress HEENT: Atraumatic, PERRLA, EOMI, Normocephalic Oral: Moist Mucosa Neck: Supple, No JVD, Negative Carotid Bruits Lungs: Normal air movement, - - Has severe coarse rhonchi bilaterally in lung thomas. Cardiovascular: Regular Rhythm, Normal S1, Normal S2, Tachycardic Abdomen: Bowel Sounds Present, Soft, Non Tender, Non-Distended, No Hepato-splenomegaly Extremities: No clubbing, No cyanosis, No edema, Capillary Refill Less than 3 Seconds Skin: No rashes, No breakdown Musculoskeletal: No Tenderness to Palpation of Joints or Extremities Lymphatic: No Cervical, Supraclavicular, or Inguinal Adenopathy Neurological: Cranial nerves II-XII grossly intact Psych/Mental Status: Normal Affect, Appropriate, Alert and oriented to time, place, person, mood and affect Microbiology Past 72 Hours 04/16/18 16:00 Mucosa - Nasopharyngeal Respiratory Panel (PCR) - Final Rhinovirus 04/15/18 21:30 Sputum, Induced/Lukens Gram Stain - Final 04/15/18 21:30 Sputum, Induced/Lukens Respiratory Culture - Preliminary GNR Possible Haemophilus sp. Laboratory Results 04/16/18 12:07: POC Glucose Pending 04/16/18 18:29: POC Glucose 157 H 04/16/18 23:10: POC Glucose 163 H 04/17/18 03:55: WBC 8.1, RBC 3.25 L, Hgb 10.1 L, Hct 30.7 L, MCV 94.5, MCH 31.1, MCHC 32.9, RDW 13.1, RDW Differential 45.7 H, Plt Count 192, MPV 11.0, Immature Gran % (Auto) 1.200 H, Neut % (Auto) 78.1 H, Lymph % (Auto) 9.6 L, [place] % (Auto) 10.6 H, Eos % (Auto) 0.0, Baso % (Auto) 0.5, Absolute Neuts (auto) 6.3, Absolute Lymphs (auto) 0.78 L, Total Counted Not Reportable, Nucleated RBC % 0.9, Absolute Retic 0.07 04/17/18 03:55: Sodium 141, Potassium 3.3 L, Chloride 101, Carbon Dioxide 31.0, Anion Gap 9, BUN 23 H, Creatinine 0.50 L, Estim Creat Clear Calc 108.88, Est GFR (MDRD) Af Amer 168, Est GFR (MDRD) Non-Af 139, BUN/Creatinine Ratio 46.3 H, Glucose 167 H, Calcium 8.2 L 04/17/18 03:55: Magnesium 2.5 04/17/18 05:07: POC Glucose 157 H 04/17/18 06:11: Specimen Type ART, Sample Site L Radial, pH 7.37, Bicarbonate Actual 30.8 H, POC Total CO2 32, Base Excess 6 H, O2 Saturation 96, O2 % 40, ABG pCO2 52.8 H, ABG pO2 86, Yvan Test POS, O2 Delivery Device Bi / C PAP, IPAP 5, Blood Gas Notified Whom ICU MD Diagnostic Data Chest X-Ray 04/16/18 05:55 IMPRESSION: The support tubes are in good position. Since prior study, there has been improved aeration of both lungs with residual reticular nodular infiltrates worse on the left side. Electronically Signed: Crow Gibson MD at 8:44 EDT Tel [phone], Service support , Current Medications Acetaminophen (Tylenol) 650 mg PO Q4H PRN PRN PRN Reason: PAIN/FEVER Albuterol Sulfate (Ventolin Aerosols) 2.5 mg INHALATION Q2H PRN PRN PRN Reason: SHORTNESS OF BREATH Last Admin: 04/17/18 07:59 Dose: 2.5 mg Albuterol/Ipratropium (Duoneb) 3 ml INHALATION Q4H.RT TYSON Last Admin: 04/17/18 06:30 Dose: 3 ml Aspirin (Aspirin, Baby) 81 mg PO DAILY [facility] Chlorhexidine Gluconate () 1 each TOPICAL DAILY [facility] Last Admin: 04/17/18 05:11 Dose: 1 each Enoxaparin Sodium (Lovenox) 60 mg SC Q12 TYSON Last Admin: 04/16/18 21:18 Dose: 60 mg Famotidine (Pepcid) 20 mg PO BID [facility] Amiodarone HCl 360 mg/ (Dextrose) 200 mls @ 16.66 mls/hr CONT INF .Q12H1M TYSON PRN Reason: 0.5 MG/MIN Last Admin: 04/17/18 08:13 Dose: 16.66 mls/hr Potassium Chloride (Kcl 10meq/100ml) 10 meq in 100 mls @ 100 mls/hr IV BOLUS Q1H TYSON Stop: 04/17/18 09:44 Last Admin: 04/17/18 08:10 Dose: 100 mls/hr Insulin Human Lispro (Humalog Kwikpen (Bkc)) 0 unit SC Q6 TYSON PRN Reason: Protocol Last Admin: 04/17/18 05:08 Dose: 1 u Methylprednisolone (Solu-Medrol) 40 mg IV Q8 TYSON Last Admin: 04/17/18 05:08 Dose: 40 mg Nicotine (Nicoderm Cq (Pbkc)) 14 mg TRANSDERM. DAILY [facility] Last Admin: 04/16/18 09:55 Dose: 14 mg Ondansetron HCl (Zofran) 4 mg IV Q4H PRN PRN PRN Reason: NAUSEA Polyethylene Glycol (Miralax) 17 gm PO BID [facility] Promethazine HCl (Phenergan) 12.5 mg IV Q6H PRN PRN PRN Reason: NAUSEA/VOMITING Senna/Docusate Sodium (Senokot-S, Venessa-Colace) 2 tablet PO BID [facility] Sodium Chloride () 5 - 30 ml IV UD PRN PRN Reason: SALINE FLUSH Last Admin: 04/17/18 05:08 Dose: 20 ml Medical Necessity - Tobacco Use Smoking Status: Former smoker Assessment/Plan All Active Problems (Last Reviewed 12/13/17 @ 07:47 by Vanessa Zamora) Acute on chronic respiratory failure with hypoxia and hypercapnia (Acute) Multifocal possible HCAP (Acute) Elevated troponin (Acute) NSTEMI (non-ST elevated myocardial infarction) (Acute) SVT (supraventricular tachycardia) (Acute) History of cholecystectomy (Resolved) History of appendectomy (Resolved) History of dilatation and curettage (Resolved) History of left oophorectomy (Resolved) History of section (Resolved) 53-year-old female admitted with complaint of shortness of breath cough and altered mental status. She was intubated on account of acute respiratory failure. 1. Severe sepsis due to health associated pneumonia improving. Now successfully extubated on 6L of oxygen; was on 4L overnight, but oxygen was bumped up to 6L this morning due to wheezing vitals: mildly tachycardic SIRS-1/4 (tachycardia) on IV vancomycin, aztreonam and levaquin. Has multiple medication allergies no leucocytosis respiratory panel positive for rhinovirus Respiratory culture grew GNR, possible Hemophilus blood cultures pending. urine for strep pneumoniae and legionella were negative. switched to oral Cefdinir after extubation 2. Acute on chronic hypercarbic respiratory failure due to health associated pneumonia successfully extubated on 04/16/18 now on 6L of oxygen has wheezing and rhonchi in lung thomas on breaathing treatments and IV solumedrol critical care on board 3. SVT HR has remained stable; mildly tachycardic this morning at 109 on IV amiodarone cardiology on board 4. NSTEMI troponin was 1.08 on admission ->1.45->0.929->0.802 EKG showed:slight ST depression in lateral and inferior leads. cardiology on board 2D echo: on aspirin, statin and SC lovenox 60mg bid. per cardio, to optimise respiratoary status, then for cardiac cath possibly tomorrow 5. Metabolic encephalopathy due to sepsis resolved. 6. COPD: on 2L baseline at home. Now on 4-6L of oxygen. On steroids and breathing treatments. Chest physiotherapy 7. Nutrition: off tube feeding since shes now extubated. 2gram low sodium diet Other medical problems: 8. GERD 9. Mitral valve prolapse 10. Nicotine dependence DVT prpophylaxis: lovenox GI prophylaxis: famotidine Code status: full code. This note was generated with [employer] dictation software. It may contain incorrect words, spelling, and punctuation that were not noted in checking the note before signing. Code Visit Inpatient E&M: 94153 Subs Hosp L3
--- NOTE | 2018-04-17 09:44 | PN_ITS ---
Patient Problems: Active and Suspected Problems (Last Reviewed 12/13/17 @ 07:47 by Vanessa Zamora ) Acute on chronic respiratory failure with hypoxia and hypercapnia (Acute) Multifocal possible HCAP (Acute) Elevated troponin (Acute) NSTEMI (non-ST elevated myocardial infarction) (Acute) SVT (supraventricular tachycardia) (Acute) Subjective: Patient seen and examined this morning. She was successfully extubated yesterday and is currently on 2 L of oxygen. She denied any fever or chills, any chest pain, any shortness of breath, any abdominal pain, or vomiting. She does have a dry cough due to the fact that she was intubated. Review of systems otherwise negative. Was noted to have fever overnight with temperature began to 100.7. Vitals/I&O's: Vital Signs Temp Pulse Resp BP Pulse Ox 98.8 F 109 H 15 106/62 94 04/17/18 08:00 04/17/18 08:00 04/17/18 08:00 04/17/18 08:00 04/17/18 08:00 Oxygen Flow Rate (L/min) 4 Oxygen Delivery Method Nasal Cannula Weight: 140 lb 10.479 oz Body Mass Index (BMI) 23.3 Intake and Output for Last 24 Hours 04/15/18 04/16/18 04/17/18 23:59 23:59 23:59 Intake Total 3832.9 / 3832.9 656.1 / 656.1 Output Total 1055 / 1055 250 / 250 Balance 2777.9 / 2777.9 406.1 / 406.1 General: Alert, Oriented x3, Cooperative, No apparent distress HEENT: Atraumatic, PERRLA, EOMI, Normocephalic Oral: Moist Mucosa Neck: Supple, No JVD, Negative Carotid Bruits Lungs: Normal air movement, - - Has severe coarse rhonchi bilaterally in lung thomas. Cardiovascular: Regular Rhythm, Normal S1, Normal S2, Tachycardic Abdomen: Bowel Sounds Present, Soft, Non Tender, Non-Distended, No Hepato- splenomegaly Extremities: No clubbing, No cyanosis, No edema, Capillary Refill Less than 3 Seconds Skin: No rashes, No breakdown Musculoskeletal: No Tenderness to Palpation of Joints or Extremities Lymphatic: No Cervical, Supraclavicular, or Inguinal Adenopathy Neurological: Cranial nerves II-XII grossly intact Psych/Mental Status: Normal Affect, Appropriate, Alert and oriented to time, place, person, mood and affect Microbiology Past 72 Hours 04/16/18 16:00 Mucosa - Nasopharyngeal Respiratory Panel (PCR) - Final Rhinovirus 04/15/18 21:30 Sputum, Induced/Lukens Gram Stain - Final 04/15/18 21:30 Sputum, Induced/Lukens Respiratory Culture - Preliminary GNR Possible Haemophilus sp. Laboratory Results 04/16/18 12:07: POC Glucose Pending 04/16/18 18:29: POC Glucose 157 H 04/16/18 23:10: POC Glucose 163 H 04/17/18 03:55: WBC 8.1, RBC 3.25 L, Hgb 10.1 L, Hct 30.7 L, MCV 94.5, MCH 31.1 , MCHC 32.9, RDW 13.1, RDW Differential 45.7 H, Plt Count 192, MPV 11.0, Immature Gran % (Auto) 1.200 H, Neut % (Auto) 78.1 H, Lymph % (Auto) 9.6 L, [place] % (Auto) 10.6 H, Eos % (Auto) 0.0, Baso % (Auto) 0.5, Absolute Neuts (auto ) 6.3, Absolute Lymphs (auto) 0.78 L, Total Counted Not Reportable, Nucleated RBC % 0.9, Absolute Retic 0.07 04/17/18 03:55: Sodium 141, Potassium 3.3 L, Chloride 101, Carbon Dioxide 31.0, Anion Gap 9, BUN 23 H, Creatinine 0.50 L, Estim Creat Clear Calc 108.88, Est GFR (MDRD) Af Amer 168, Est GFR (MDRD) Non-Af 139, BUN/Creatinine Ratio 46.3 H, Glucose 167 H, Calcium 8.2 L 04/17/18 03:55: Magnesium 2.5 04/17/18 05:07: POC Glucose 157 H 04/17/18 06:11: Specimen Type ART, Sample Site L Radial, pH 7.37, Bicarbonate Actual 30.8 H, POC Total CO2 32, Base Excess 6 H, O2 Saturation 96, O2 % 40, ABG pCO2 52.8 H, ABG pO2 86, Yvan Test POS, O2 Delivery Device Bi / C PAP, IPAP 5, Blood Gas Notified Whom ICU MD Diagnostic Data Chest X-Ray 04/16/18 05:55 IMPRESSION: The support tubes are in good position. Since prior study, there has been improved aeration of both lungs with residual reticular nodular infiltrates worse on the left side. Electronically Signed: Crow Gibson MD at 8:44 EDT Tel [phone], Service support , Current Medications Acetaminophen (Tylenol) 650 mg PO Q4H PRN PRN PRN Reason: PAIN/FEVER Albuterol Sulfate (Ventolin Aerosols) 2.5 mg INHALATION Q2H PRN PRN PRN Reason: SHORTNESS OF BREATH Last Admin: 04/17/18 07:59 Dose: 2.5 mg Albuterol/Ipratropium (Duoneb) 3 ml INHALATION Q4H.RT TYSON Last Admin: 04/17/18 06:30 Dose: 3 ml Aspirin (Aspirin, Baby) 81 mg PO DAILY [facility] Chlorhexidine Gluconate () 1 each TOPICAL DAILY [facility] Last Admin: 04/17/18 05:11 Dose: 1 each Enoxaparin Sodium (Lovenox) 60 mg SC Q12 [facility]YS[facility] Last Admin: 04/16/18 21:18 Dose: 60 mg Famotidine (Pepcid) 20 mg PO BID [facility] Amiodarone HCl 360 mg/ (Dextrose) 200 mls @ 16.66 mls/hr CONT INF .Q12H1M TYSON PRN Reason: 0.5 MG/MIN Last Admin: 04/17/18 08:13 Dose: 16.66 mls/hr Potassium Chloride (Kcl 10meq/100ml) 10 meq in 100 mls @ 100 mls/hr IV BOLUS Q1H TYSON Stop: 04/17/18 09:44 Last Admin: 04/17/18 08:10 Dose: 100 mls/hr Insulin Human Lispro (Humalog Kwikpen (Bkc)) 0 unit SC Q6 [facility] PRN Reason: Protocol Last Admin: 04/17/18 05:08 Dose: 1 u Methylprednisolone (Solu-Medrol) 40 mg IV Q8 [facility] Last Admin: 04/17/18 05:08 Dose: 40 mg Nicotine (Nicoderm Cq (Pbkc)) 14 mg TRANSDERM. DAILY [facility] Last Admin: 04/16/18 09:55 Dose: 14 mg Ondansetron HCl (Zofran) 4 mg IV Q4H PRN PRN PRN Reason: NAUSEA Polyethylene Glycol (Miralax) 17 gm PO BID [facility] Promethazine HCl (Phenergan) 12.5 mg IV Q6H PRN PRN PRN Reason: NAUSEA/VOMITING Senna/Docusate Sodium (Senokot-S, Venessa-Colace) 2 tablet PO BID [facility] Sodium Chloride () 5 - 30 ml IV UD PRN PRN Reason: SALINE FLUSH Last Admin: 04/17/18 05:08 Dose: 20 ml Medical Necessity - Tobacco Use Smoking Status: Former smoker Assessment/Plan All Active Problems (Last Reviewed 12/13/17 @ 07:47 by Vanessa Zamora) Acute on chronic respiratory failure with hypoxia and hypercapnia (Acute) Multifocal possible HCAP (Acute) Elevated troponin (Acute) NSTEMI (non-ST elevated myocardial infarction) (Acute) SVT (supraventricular tachycardia) (Acute) History of cholecystectomy (Resolved) History of appendectomy (Resolved) History of dilatation and curettage (Resolved) History of left oophorectomy (Resolved) History of section (Resolved) 53-year-old female admitted with complaint of shortness of breath cough and altered mental status. She was intubated on account of acute respiratory failure. 1. Severe sepsis due to health associated pneumonia * improving. Now successfully extubated * on 6L of oxygen; was on 4L overnight, but oxygen was bumped up to 6L this morning due to wheezing * vitals: mildly tachycardic * SIRS-1/4 (tachycardia) * on IV vancomycin, aztreonam and levaquin. Has multiple medication allergies * no leucocytosis * respiratory panel positive for rhinovirus * Respiratory culture grew GNR, possible Hemophilus * blood cultures pending. * urine for strep pneumoniae and legionella were negative. * switched to oral Cefdinir after extubation * 2. Acute on chronic hypercarbic respiratory failure due to health associated pneumonia * successfully extubated on 04/16/18 * now on 6L of oxygen * has wheezing and rhonchi in lung thomas * on breaathing treatments and IV solumedrol * critical care on board * 3. SVT * HR has remained stable; mildly tachycardic this morning at 109 * on IV amiodarone * cardiology on board * 4. NSTEMI * troponin was 1.08 on admission ->1.45->0.929->0.802 * EKG showed:slight ST depression in lateral and inferior leads. * cardiology on board * 2D echo: * on aspirin, statin and SC lovenox 60mg bid. * per cardio, to optimise respiratoary status, then for cardiac cath possibly tomorrow * 5. Metabolic encephalopathy due to sepsis * resolved. * 6. COPD: * on 2L baseline at home. * Now on 4-6L of oxygen. On steroids and breathing treatments. Chest physiotherapy 7. Nutrition: off tube feeding since shes now extubated. 2gram low sodium diet Other medical problems: 8. GERD 9. Mitral valve prolapse 10. Nicotine dependence DVT prpophylaxis: lovenox GI prophylaxis: famotidine Code status: full code. This note was generated with [employer] dictation software. It may contain incorrect words, spelling, and punctuation that were not noted in checking the note before signing. Code Visit Inpatient E&M: 57785 [facility] Hosp L3
[2018-04-17] MEDS: Enoxaparin 60 MG/0.6 ML Syringe SC ×2 (09:54→22:13)
[2018-04-17] MEDS: Polyethylene Glycol 3350 17 GM PACKET PO ×2 (09:54→22:13)
[2018-04-17] MEDS: Senna/Docusate Sodium 1 Tablet 2 TABLET PO (09:55)
[2018-04-17] MEDS: Aspirin 81 MG TAB.CHEW PO (09:57)
--- NOTE | 2018-04-17 10:05 | CASEMGMT ---
RN CM note: participated in ICU rounds. Spoke with pt and son after rounding. Pt has required increased level of care and both are expressing concerns re: her care needs @ home. Discussed SNF placement for short term rehab on dc vs Home Health. PT/OT will be working with pt again today. Pt and son are agreeable to SNF on discharge. Referral SW. Jese LeongN RN ACM
[2018-04-17] MEDS: Cefdinir 300 MG Capsule PO ×2 (11:46→22:12)
[2018-04-17 11:55] LABS: Bedside Glucose 172 mg/dL (70-110)
--- NOTE | 2018-04-17 13:00 | NURSING ---
Took over care from [facility] Espinal at 13:00 today.
--- NOTE | 2018-04-17 14:54 | CASEMGMT ---
Social Work: Met with patient and son in room. Introduced self and role of the social sciences instructor. Patient was needing assistance with ADL's before this admission. Patient lives with son and daughter who assist as needed. Discussed D/C plan with patient and son. Patient's son is concerned about patient's ability to return home as she was needing assistance with ADL's before admission and is very weak at this point. Patient agreeable to short term skilled care. This SW provided patient with a list of SNF's in network with [facility]. Patient asking this SW to come back tomorrow as she and son will look over the list and think about it. See SW assessment. SW to follow to assist as needed with D/C planning. PLAN: Patient to be discharged to SNF when medically ready. RIANNA Sepulveda
[2018-04-17 16:26] LABS: Bedside Glucose 159 mg/dL (70-110)
--- NOTE | 2018-04-17 17:44 | NURSING ---
reviewed D Augustin RN charting and agree with assessment findings
[2018-04-17] MEDS: Famotidine 20 MG Tablet PO (22:12)
[2018-04-17] MEDS: Acetaminophen 325 MG Tablet 650 MG PO (22:12)
[2018-04-18] VITALS (34 sets, daily range): BP systolic 103–143; BP diastolic 49–83; PULSE 90–141; RESP 13–91; TEMP 36.6–37.9; O2SAT 9–99
[2018-04-18 00:46] LABS: Bedside Glucose 163 mg/dL (70-110)
[2018-04-18] MEDS: Ipratropium/Albuterol Sulfate 3 ML AMPUL.NEB INHALATION ×5 (03:37→22:45)
[2018-04-18 05:16] LABS: Hematocrit 33.4 % (37-47); Hemoglobin 10.8 g/dl (12.0-15.0); Mean Corp Hgb Conc 32.3 g/gl (32-36); Mean Corpuscular Hgb 31.3 pg (27.0-32.0); Mean Corpuscular Volume 96.8 fL (81-99); Mean Platelet Vol. 10.5 fl (6.2-12.0); Platelet Count 214 K/mm3 (150-450); RBC Distribution Width CV 13.2 % (11.6-14.6); RBC Distribution Width SD 44.6 fl (35.1-43.9); Red Blood Count 3.45 M/mm3 (4.2-5.4); White Blood Count 11.7 K/mm3 (4.4-11.0)
[2018-04-18 05:18] LABS: Differential Indicated MANUAL DIFF; POSITIVE COUNT YES; POSITIVE DIFFERENTIAL NO; POSITIVE MORPHOLOGY YES
[2018-04-18 05:23] LABS: Anion Gap 4 (5-15); BUN 17 mg/dL (7-18); BUN/Creat Ratio 32.3 RATIO (10-20); Calcium,Total 8.5 mg/dL (8.5-10.1); Chloride 100 mmol/L (98-107); Creatinine, Serum 0.53 mg/dL (0.55-1.02); EST Glomerular Filtration Rate 130 mL/min (>60); Est Glom Filt Rate - Afr Amer 157 mL/min (>60); Estimated Creatinine Clearance 102.71 ml/min; Glucose 164 mg/dL (74-106); Magnesium 2.4 mg/dL (1.6-2.6); Phosphorus 2.2 mg/dL (2.5-4.9); Potassium 3.6 mmol/L (3.5-5.1); Sodium Level 142 mmol/L (136-145)
[2018-04-18 05:34] LABS: Lymphocyte 4 % (19-41); Metamyelocyte 2 % (0-1); Monocyte 3 % (0-10); Myelocyte 1 (0-0); Neutrophil-Band 6 % (0-5); Neutrophil-Segmented 84 % (47-70); Platelet Estimate ADEQUATE (ADEQ); Red Cell Morphology NORM C+C NORMAL (NORM C&C); Total Cells Counted 100 (MANUAL DIFF)
[2018-04-18 05:35] LABS: Absolute Lymphocyte Count 0.46 X10^3/ul (0.83-4.51); Lymphocyte # 0.46 X10^3/ul (4.0); Toxic Granulation 2+; Vacuolated Cells 2+
[2018-04-18 05:36] LABS: Absolute Neutrophil Count 10.5 X10^3/uL (2.0-7.7); Neutrophil # 10.53 X10^3/uL (2.7-7.7)
[2018-04-18] MEDS: Albuterol 2.5 MG/3 ML VIAL.NEB. INHALATION (05:47)
[2018-04-18] MEDS: Acetaminophen 325 MG Tablet 650 MG PO (06:13)
--- NOTE | 2018-04-18 06:45 | PCM.PN.INT ---
Subjective: Patient did well overnight. Patient has had periodic coughing episodes leading to tachycardia that resolved spontaneously. Patient remains on amiodarone IV. Patient denying any chest pain. Patient feels dyspnea is close to its baseline while at rest. Patient tolerating p.o. diet without difficulty. General: Alert, Oriented x3, Cooperative, No apparent distress, Well developed, Well nourished, - - Speaking in full sentences. Appears older than stated age. HEENT: Atraumatic, PERRLA, EOMI, Normocephalic, - - Glasses in place. No scleral icterus or injection noted. Oral: Moist Mucosa, No Gingival or Mucosal Lesions/ Ulcerations Neck: Supple, No JVD, No Nodes, Trachea Midline Lungs: No rhonchi, No rales, Diminished, Wheezes, - - Symmetric expansion. No accessory muscle use noted. Cardiovascular: Normal S1, Normal S2, No murmurs, No rub noted, No Gallop, Tachycardic Abdomen: Bowel Sounds Present, Soft, Non Tender, Non-Distended Extremities: No clubbing, No cyanosis, No edema, Capillary Refill Less than 3 Seconds Skin: - - No significant change compared to previous Musculoskeletal: No Tenderness to Palpation of Joints or Extremities Lymphatic: No Cervical, Supraclavicular, or Inguinal Adenopathy Neurological: Cranial nerves II-XII grossly intact, Neuro grossly intact, Motor Exam 5/5 strength throughout Psych/Mental Status: Appropriate, Anxious Vital Signs Temp Pulse Resp BP Pulse Ox 37.2 C 108 H 23 H 118/83 H 92 04/18/18 06:00 04/18/18 06:00 04/18/18 06:00 04/18/18 06:00 04/18/18 06:00 Oxygen Flow Rate (L/min) 4 Oxygen Delivery Method Nasal Cannula Weight: 64.8 kg Body Mass Index (BMI) 23.3 Intake and Output for Last 24 Hours 04/16/18 04/17/18 04/18/18 23:59 23:59 23:59 Intake Total 3832.9 / 3832.9 2061.1 / 2061.1 929.0 / 929.0 Output Total 1055 / 1055 780 / 780 750 / 750 Balance 2777.9 / 2777.9 1281.1 / 1281.1 179.0 / 179.0 Labs (Last 48 Hours) 04/16/18 04/16/18 04/16/18 12:07 18:29 23:10 WBC RBC Hgb Hct MCV MCH MCHC RDW RDW Differential Plt Count MPV Immature Gran % (Auto) Neut % (Auto) Lymph % (Auto) Johnson % (Auto) Eos % (Auto) Baso % (Auto) Absolute Neuts (auto) Absolute Lymphs (auto) Total Counted Neutrophils % (Manual) Band Neutrophils % Lymphocytes % (Manual) Monocytes % (Manual) Metamyelocytes % Myelocytes % Nucleated RBC % Differential Comment Diff Path Review Toxic Granulation Platelet Estimate RBC Morphology Absolute Retic Specimen Type Sample Site pH Bicarbonate Actual POC Total CO2 Base Excess O2 Saturation O2 % ABG pCO2 ABG pO2 Yvan Test O2 Delivery Device IPAP Blood Gas Notified Whom Sodium Potassium Chloride Carbon Dioxide Anion Gap BUN Creatinine Estim Creat Clear Calc Est GFR (MDRD) Af Amer Est GFR (MDRD) Non-Af BUN/Creatinine Ratio Glucose Calcium Phosphorus Magnesium POC Glucose Pending 157 H 163 H 04/17/18 04/17/18 04/17/18 03:55 03:55 03:55 WBC 8.1 RBC 3.25 L Hgb 10.1 L Hct 30.7 L MCV 94.5 MCH 31.1 MCHC 32.9 RDW 13.1 RDW Differential 45.7 H Plt Count 192 MPV 11.0 Immature Gran % (Auto) 1.200 H Neut % (Auto) 78.1 H Lymph % (Auto) 9.6 L Johnson % (Auto) 10.6 H Eos % (Auto) 0.0 Baso % (Auto) 0.5 Absolute Neuts (auto) 6.3 Absolute Lymphs (auto) 0.78 L Total Counted Not Reportable Neutrophils % (Manual) Band Neutrophils % Lymphocytes % (Manual) Monocytes % (Manual) Metamyelocytes % Myelocytes % Nucleated RBC % 0.9 Differential Comment Diff Path Review Toxic Granulation Platelet Estimate RBC Morphology Absolute Retic 0.07 Specimen Type Sample Site pH Bicarbonate Actual POC Total CO2 Base Excess O2 Saturation O2 % ABG pCO2 ABG pO2 Yvan Test O2 Delivery Device IPAP Blood Gas Notified Whom Sodium 141 Potassium 3.3 L Chloride 101 Carbon Dioxide 31.0 Anion Gap 9 BUN 23 H Creatinine 0.50 L Estim Creat Clear Calc 108.88 Est GFR (MDRD) Af Amer 168 Est GFR (MDRD) Non-Af 139 BUN/Creatinine Ratio 46.3 H Glucose 167 H Calcium 8.2 L Phosphorus Magnesium 2.5 POC Glucose 04/17/18 04/17/18 04/17/18 05:07 06:11 11:42 WBC RBC Hgb Hct MCV MCH MCHC RDW RDW Differential Plt Count MPV Immature Gran % (Auto) Neut % (Auto) Lymph % (Auto) Johnson % (Auto) Eos % (Auto) Baso % (Auto) Absolute Neuts (auto) Absolute Lymphs (auto) Total Counted Neutrophils % (Manual) Band Neutrophils % Lymphocytes % (Manual) Monocytes % (Manual) Metamyelocytes % Myelocytes % Nucleated RBC % Differential Comment Diff Path Review Toxic Granulation Platelet Estimate RBC Morphology Absolute Retic Specimen Type ART Sample Site L Radial pH 7.37 Bicarbonate Actual 30.8 H POC Total CO2 32 Base Excess 6 H O2 Saturation 96 O2 % 40 ABG pCO2 52.8 H ABG pO2 86 Yvan Test POS O2 Delivery Device Bi / C PAP IPAP 5 Blood Gas Notified Whom ICU Sodium Potassium Chloride Carbon Dioxide Anion Gap BUN Creatinine Estim Creat Clear Calc Est GFR (MDRD) Af Amer Est GFR (MDRD) Non-Af BUN/Creatinine Ratio Glucose Calcium Phosphorus Magnesium POC Glucose 157 H 172 H 04/17/18 04/17/18 04/18/18 16:08 22:06 05:00 WBC 11.7 H RBC 3.45 L Hgb 10.8 L Hct 33.4 L MCV 96.8 MCH 31.3 MCHC 32.3 RDW 13.2 RDW Differential 44.6 H Plt Count 214 MPV 10.5 Immature Gran % (Auto) Neut % (Auto) Not Reportable Lymph % (Auto) Johnson % (Auto) Eos % (Auto) Baso % (Auto) Absolute Neuts (auto) 10.5 H Absolute Lymphs (auto) 0.46 L Total Counted 100 Neutrophils % (Manual) 84 H Band Neutrophils % 6 H Lymphocytes % (Manual) 4 L Monocytes % (Manual) 3 Metamyelocytes % 2 H Myelocytes % 1 H Nucleated RBC % Differential Comment 2+ Diff Path Review May foll Toxic Granulation 2+ Platelet Estimate ADEQUATE RBC Morphology NORM C+C Absolute Retic Specimen Type Sample Site pH Bicarbonate Actual POC Total CO2 Base Excess O2 Saturation O2 % ABG pCO2 ABG pO2 Yvan Test O2 Delivery Device IPAP Blood Gas Notified Whom Sodium Potassium Chloride Carbon Dioxide Anion Gap BUN Creatinine Estim Creat Clear Calc Est GFR (MDRD) Af Amer Est GFR (MDRD) Non-Af BUN/Creatinine Ratio Glucose Calcium Phosphorus Magnesium POC Glucose 159 H 163 H 04/18/18 05:00 WBC RBC Hgb Hct MCV MCH MCHC RDW RDW Differential Plt Count MPV Immature Gran % (Auto) Neut % (Auto) Lymph % (Auto) Johnson % (Auto) Eos % (Auto) Baso % (Auto) Absolute Neuts (auto) Absolute Lymphs (auto) Total Counted Neutrophils % (Manual) Band Neutrophils % Lymphocytes % (Manual) Monocytes % (Manual) Metamyelocytes % Myelocytes % Nucleated RBC % Differential Comment Diff Path Review Toxic Granulation Platelet Estimate RBC Morphology Absolute Retic Specimen Type Sample Site pH Bicarbonate Actual POC Total CO2 Base Excess O2 Saturation O2 % ABG pCO2 ABG pO2 Yvan Test O2 Delivery Device IPAP Blood Gas Notified Whom Sodium 142 Potassium 3.6 Chloride 100 Carbon Dioxide 38.0 H Anion Gap 4 L BUN 17 Creatinine 0.53 L Estim Creat Clear Calc 102.71 Est GFR (MDRD) Af Amer 157 Est GFR (MDRD) Non-Af 130 BUN/Creatinine Ratio 32.3 H Glucose 164 H Calcium 8.5 Phosphorus 2.2 L Magnesium 2.4 POC Glucose Microbiology 04/15/18 21:30 Sputum, Induced/Lukens Gram Stain - Final 04/15/18 21:30 Sputum, Induced/Lukens Respiratory Culture - Final Haemophilus influenzae 04/16/18 16:00 Mucosa - Nasopharyngeal Respiratory Panel (PCR) - Final Rhinovirus Medical Necessity - Tobacco Use Smoking Status: Former smoker Assessment/Plan All Active Problems (Last Reviewed 12/13/17 @ 07:47 by Vanessa Zamora) Acute on chronic respiratory failure with hypoxia and hypercapnia (Acute) Multifocal possible HCAP (Acute) Elevated troponin (Acute) NSTEMI (non-ST elevated myocardial infarction) (Acute) SVT (supraventricular tachycardia) (Acute) History of cholecystectomy (Resolved) History of appendectomy (Resolved) History of dilatation and curettage (Resolved) History of left oophorectomy (Resolved) History of section (Resolved) RECOMMENDATIONS: 1. Continue bronchodilators, antibiotics and wean steroids 2. Wean oxygen as tolerated. Incentive spirometer 3. Increase activity as tolerated 4. Amiodarone and cardiac investigation per cardiology 5. Okay to increase beta-doretha if blood pressure allows 6. Okay to leave the intensive care unit from my perspective IMPRESSIONS: 1. Acute on chronic combined respiratory failure secondary to Haemophilus influenza pneumonia/rhinovirus Patient liberated from the ventilator yesterday and appears to be doing well on baseline 4 L nasal cannula oxygen. Patient continues to have a cough, but is tolerating well. Will continue with bronchodilators and antibiotics. Patient will be transition to p.o. prednisone. This can likely be weaned over the next 12-14 days. Continue with aggressive pulmonary toileting with IS, Acapella and out of bed as tolerated. 2. Non-ST elevation TN/SVT Unclear if this is secondary to hypoxemia versus a malignant rhythm with baseline coronary obstruction. Cardiology is currently following. No indication for further troponin measurement. Patient is on aspirin and Lovenox at therapeutic levels. Defer to cardiology on possible intervention with heart catheterization 3. Severe sepsis secondary to Haemophilus influenza pneumonia Patient with reported fever, tachycardia and hypoxemia on presentation. This was likely present on presentation. Patient's blood pressure is much improved compared to previous. Patient continues to have episodes of tachycardia associated with coughing, but cardiology is following. 4. Metabolic encephalopathy She was significant CO2 retention on presentation. Patient is on supplemental oxygen at baseline. This appears to be at baseline. Patient is no longer on fentanyl. 5. Bipolar disorder/history of diverticulitis/mitral valve prolapse/chronic pain syndrome/GERD/hypothyroidism Complicates care, management, recovery and prognosis. Likely okay to continue with baseline medications. Code Visit Inpatient E&M: [id number] [facility] L[facility]
--- NOTE | 2018-04-18 07:36 | PN.CARD_ITS ---
Subjectve: Patient seen and evaluated. Appears to be doing better this morning. She is status post extubation over 24 hours. Objective: Vital Signs Temp Pulse Resp BP Pulse Ox 99.0 F 108 H 23 H 118/83 H 92 04/18/18 06:00 04/18/18 06:00 04/18/18 06:00 04/18/18 06:00 04/18/18 06:00 Oxygen Flow Rate (L/min) 4 Oxygen Delivery Method Nasal Cannula Weight: 142 lb 13.753 oz Body Mass Index (BMI) 23.3 Intake and Output for Last 24 Hours 04/16/18 04/17/18 04/18/18 23:59 23:59 23:59 Intake Total 3832.9 / 3832.9 2061.1 / 2061.1 929.0 / 929.0 Output Total 1055 / 1055 780 / 780 750 / 750 Balance 2777.9 / 2777.9 1281.1 / 1281.1 179.0 / 179.0 General: Awake, Alert, Oriented x 3, Ill Appearing HEENT: PERRL, EOMI, Sclera Non Icteric Neck: Supple, Good ROM, No Lymph Node Enlargement Lungs: Clear to auscultation Cardiovascular: Regular Rhythm, Normal S1, Normal S2, No Murmurs, No Rubs, No Gallops Vascular: No Carotid Bruits, Normal Femoral Pulses, Normal Radial Pulses, Normal Dorsalis Pedal Pulse, Normal Posterior Tibial Pulses Abdomen: Bowel Sounds Present, Soft, Non Tender, No HSM, No Organomegaly Extremities: No Cyanosis, No Clubbing, No edema Neurological: No Focal Motor or Sensory Deficit 04/17/18 03:55: Magnesium 2.5 04/18/18 05:00: WBC 11.7 H, RBC 3.45 L, Hgb 10.8 L, Hct 33.4 L, MCV 96.8, MCH 31.3, MCHC 32.3, RDW 13.2, RDW Differential 44.6 H, Plt Count 214, MPV 10.5, Neut % (Auto) Not Reportable, Absolute Neuts (auto) 10.5 H, Total Counted 100, Neutrophils % (Manual) 84 H, Band Neutrophils % 6 H, Lymphocytes % (Manual) 4 L , Monocytes % (Manual) 3, Metamyelocytes % 2 H, Myelocytes % 1 H 04/18/18 05:00: Sodium 142, Potassium 3.6, Chloride 100, Carbon Dioxide 38.0 H, Anion Gap 4 L, BUN 17, Creatinine 0.53 L, Est GFR (MDRD) Af Amer 157, Est GFR ( MDRD) Non-Af 130, BUN/Creatinine Ratio 32.3 H, Glucose 164 H, Calcium 8.5, Phosphorus 2.2 L, Magnesium 2.4 Rhythm: EKG: ECHO: Stress Test: Cardiac Cath: PCI: CT Surgery: Holter monitor: EPS: PPM: CXR: Chest CT Scan: Medical Necessity - Tobacco Use Smoking Status: Former smoker Assessment/Plan 1. Non-ST elevation myocardial infarction The patient presents with respiratory distress and is noted to have EKG changes and a non-ST elevation myocardial infarction. * She appears to be doing better at this time with her ejection fraction noted to be normal by echocardiographic evaluation. * Recommendation at this time will be to treat the underlying sepsis and this appears to be under good control. * Aspirin * Will continue on anticoagulation at this time. * She will eventually need an evaluation of her coronary anatomy. * The cardiac catheterization today demonstrated the following: Normal left main coronary artery. Left anterior descending artery with mild disease. Codominant left circumflex artery with mid circumflex 50% stenosis and mid to distal circumflex artery 50-70% stenosis. Codominant right coronary artery with no high-grade stenosis. Preserved left ventricular systolic function. Based on the above angiographic findings I would recommend aggressive medical therapy. It does not appear that the coronary lesions were enough to cause her to go into the respiratory failure. Smoking cessation has been emphasized. * High intensity statin * 2. Supraventricular tachycardia * Patient is having runs of supraventricular tachycardia. These appear to have abated and has not had any since last night. Switch over from intravenous amiodarone to oral amiodarone. * Will continue to administer aliquots of beta-doretha as blood pressure tolerates * Will start oral beta-doretha later this afternoon if patient is stable.
[2018-04-18] MEDS: Insulin Lispro 100 UNIT/ML INSULN.PEN SC (08:16)
--- NOTE | 2018-04-18 08:30 | NURSING ---
discussed cardiac cath with patient voiced understanding of procedure, consent signed, prep completed
[2018-04-18 08:36] LABS: Internal QC Validated? YES +Cl - CLEAR BKGD; Pregnancy, Urine Negative Negative
[2018-04-18] MEDS: CHLORHEXIDINE GLUC 2% CLOTH 1 EACH TOWELETTE TOPICAL (08:58)
--- NOTE | 2018-04-18 09:15 | CCN.REFER ---
SW participated in ICU rounds this morning, spoke w/pt in regard to [facility] choice. Pt is in agreement w/[facility] placement, but wants to speak w/her children regarding where to send a referral. She states they will be here later today. SW gave pt this SW's number and asked her or her family to either call, or ask RN for SW when they arrive so SW can start referral. Pt states understanding. SW also let RN know to call SW if family come in today. SW will continue to follow. RIANNA Bill, [employer]
[2018-04-18] MEDS: Amiodarone 200 MG Tablet PO ×2 (09:16→23:10)
[2018-04-18] MEDS: predniSONE 20 MG Tablet 40 MG PO (09:17)
[2018-04-18] MEDS: Aspirin 81 MG TAB.CHEW PO ×2 (09:18→09:23)
--- NOTE | 2018-04-18 09:31 | PCM.PN.HOSP ---
Patient Problems: Active and Suspected Problems (Last Reviewed 12/13/17 @ 07:47 by Vanessa Zamora) Acute on chronic respiratory failure with hypoxia and hypercapnia (Acute) Multifocal possible HCAP (Acute) Elevated troponin (Acute) NSTEMI (non-ST elevated myocardial infarction) (Acute) SVT (supraventricular tachycardia) (Acute) Subjective: Seen and examined. She had a good night and has no complaints. She denies any cough or chest pain. She is on intranasal oxygen on 2 L and saturating well. She denies any fever or chills, no abdominal pain, any diarrhea vomiting. Review of systems otherwise negative. Labs, vitals and medications reviewed. She is for possible cardiac cath later today. Vitals/I&O's: Vital Signs Temp Pulse Resp BP Pulse Ox 99.2 F H 107 H 18 115/71 93 04/18/18 08:00 04/18/18 08:00 04/18/18 08:00 04/18/18 08:00 04/18/18 08:00 Oxygen Flow Rate (L/min) 4 Oxygen Delivery Method Nasal Cannula Weight: 142 lb 13.753 oz Body Mass Index (BMI) 23.3 Intake and Output for Last 24 Hours 04/16/18 04/17/18 04/18/18 23:59 23:59 23:59 Intake Total 3832.9 / 3832.9 2061.1 / 2061.1 929.0 / 929.0 Output Total 1055 / 1055 780 / 780 750 / 750 Balance 2777.9 / 2777.9 1281.1 / 1281.1 179.0 / 179.0 General: Alert, Oriented x3, Cooperative, No apparent distress HEENT: Atraumatic, PERRLA, EOMI, Normocephalic Oral: Moist Mucosa Neck: Supple, No JVD, Negative Carotid Bruits, Negative Hepatojugular Reflux, No Nodes Lungs: Normal air movement, - - Has few crackles right lower lung thomas. Adequate breathsounds bilaterally. Cardiovascular: Regular rate, Regular Rhythm, Normal S1, Normal S2, No murmurs Abdomen: Bowel Sounds Present, Soft, Non Tender, Non-Distended, No Hepato-splenomegaly Extremities: No clubbing, No cyanosis, No edema, Capillary Refill Less than 3 Seconds Skin: No rashes, No breakdown Lymphatic: No Cervical, Supraclavicular, or Inguinal Adenopathy Neurological: Cranial nerves II-XII grossly intact Psych/Mental Status: Normal Affect, Appropriate, Alert and oriented to time, place, person, mood and affect Microbiology Past 72 Hours 04/15/18 21:30 Sputum, Induced/Lukens Gram Stain - Final 04/15/18 21:30 Sputum, Induced/Lukens Respiratory Culture - Final Haemophilus influenzae 04/16/18 16:00 Mucosa - Nasopharyngeal Respiratory Panel (PCR) - Final Rhinovirus Laboratory Results 04/17/18 11:42: POC Glucose 172 H 04/17/18 16:08: POC Glucose 159 H 04/17/18 22:06: POC Glucose 163 H 04/18/18 05:00: WBC 11.7 H, RBC 3.45 L, Hgb 10.8 L, Hct 33.4 L, MCV 96.8, MCH 31.3, MCHC 32.3, RDW 13.2, RDW Differential 44.6 H, Plt Count 214, MPV 10.5, Neut % (Auto) Not Reportable, Absolute Neuts (auto) 10.5 H, Absolute Lymphs (auto) 0.46 L, Total Counted 100, Neutrophils % (Manual) 84 H, Band Neutrophils % 6 H, Lymphocytes % (Manual) 4 L, Monocytes % (Manual) 3, Metamyelocytes % 2 H, Myelocytes % 1 H, Differential Comment 2+, Diff Path Review May foll, Toxic Granulation 2+, Platelet Estimate ADEQUATE, RBC Morphology NORM C+C 04/18/18 05:00: Sodium 142, Potassium 3.6, Chloride 100, Carbon Dioxide 38.0 H, Anion Gap 4 L, BUN 17, Creatinine 0.53 L, Estim Creat Clear Calc 102.71, Est GFR (MDRD) Af Amer 157, Est GFR (MDRD) Non-Af 130, BUN/Creatinine Ratio 32.3 H, Glucose 164 H, Calcium 8.5, Phosphorus 2.2 L, Magnesium 2.4 04/18/18 08:00: Urine Test Negative Current Medications Acetaminophen (Tylenol) 650 mg PO Q4H PRN PRN PRN Reason: PAIN/FEVER Last Admin: 04/18/18 06:13 Dose: 650 mg Albuterol Sulfate (Ventolin Aerosols) 2.5 mg INHALATION Q2H PRN PRN PRN Reason: SHORTNESS OF BREATH Last Admin: 04/18/18 05:47 Dose: 2.5 mg Albuterol/Ipratropium (Duoneb) 3 ml INHALATION Q4H.RT [facility] Last Admin: 04/18/18 06:48 Dose: 3 ml Amiodarone HCl (Cordarone) 200 mg PO BID [facility] Last Admin: 04/18/18 09:16 Dose: 200 mg Aspirin (Aspirin, Baby) 81 mg PO DAILY [facility] Last Admin: 04/18/18 09:23 Dose: 81 mg Cefdinir (Omnicef [Equiv]) 300 mg PO Q12 [facility] Stop: 04/21/18 22:01 Last Admin: 04/17/18 22:12 Dose: 300 mg Chlorhexidine Gluconate () 1 each TOPICAL DAILY [facility] Last Admin: 04/18/18 08:58 Dose: 1 each Enoxaparin Sodium (Lovenox) 60 mg SC Q12 [facility] Last Admin: 04/18/18 08:20 Dose: Not Given Famotidine (Pepcid) 20 mg PO BID [facility] Last Admin: 04/17/18 22:12 Dose: 20 mg Potassium Phosphate 40 mm/ (Sodium Chloride) 513.3333 mls @ 62.5 mls/hr IV X1 ONE Stop: 04/18/18 14:44 Last Admin: 04/18/18 06:54 Dose: 62.5 mls/hr Sodium Chloride () 1,000 mls @ 15 mls/hr IV .Q48H [facility] PRN Reason: KVO Insulin Human Lispro (Humalog Kwikpen (Bkc)) 0 unit SC ACHS [facility] PRN Reason: Protocol Last Admin: 04/18/18 08:16 Dose: 1 u Nicotine (Nicoderm Cq (Pbkc)) 14 mg TRANSDERM. DAILY [facility] Last Admin: 04/17/18 09:55 Dose: 14 mg Ondansetron HCl (Zofran) 4 mg IV Q4H PRN PRN PRN Reason: NAUSEA Polyethylene Glycol (Miralax) 17 gm PO BID [facility] Last Admin: 04/18/18 08:20 Dose: Not Given Prednisone () 40 mg PO DAILY@0800 [facility] Last Admin: 04/18/18 09:17 Dose: 40 mg Promethazine HCl (Phenergan) 12.5 mg IV Q6H PRN PRN PRN Reason: NAUSEA/VOMITING Senna/Docusate Sodium (Senokot-S, Venessa-Colace) 2 tablet PO BID [facility] Last Admin: 04/18/18 08:58 Dose: Not Given Sodium Chloride () 5 - 30 ml IV UD PRN PRN Reason: SALINE FLUSH Last Admin: 04/17/18 22:17 Dose: 20 ml Medical Necessity - Tobacco Use Smoking Status: Former smoker Assessment/Plan All Active Problems (Last Reviewed 12/13/17 @ 07:47 by Vanessa Zamora) Acute on chronic respiratory failure with hypoxia and hypercapnia (Acute) Multifocal possible HCAP (Acute) Elevated troponin (Acute) NSTEMI (non-ST elevated myocardial infarction) (Acute) SVT (supraventricular tachycardia) (Acute) History of cholecystectomy (Resolved) History of appendectomy (Resolved) History of dilatation and curettage (Resolved) History of left oophorectomy (Resolved) History of section (Resolved) 53-year-old female admitted with complaint of shortness of breath cough and altered mental status. She was intubated on account of acute respiratory failure. 1.Health associated pneumonia was admitted with severe sepsis, SIRS criteria has now resolved was initially intubated, but was extubated on 04/16/18. on oxygen by nasal canula-4L has remained febrile, with temperature this morning being 99.2F on oral cefdinir now after extubation respiratory panel positive for rhinovirus Respiratory culture grew GNR, possible Hemophilus blood cultures pending. urine for strep pneumoniae and legionella were negative. 2. Acute on chronic hypercarbic respiratory failure due to health associated pneumonia successfully extubated on 04/16/18 now on 4L of oxygen by nasal canula has few crackles in right lower lung thomas on breathing treatments with albuterol and atrovent, also on IV solumedrol critical care on board 3. SVT has been rate controlled since admission. was on IV amiodarone. Cardiology on board; recommend switch to PO amiodarone, with IV beta doretha prn on PO atenolol at home; will resume now on PO amiodarone 200mg bid, 4. NSTEMI troponin was 1.08 on admission ->1.45->0.929->0.802 EKG showed:slight ST depression in lateral and inferior leads. cardiology on board for likely cath today 2D echo: normal LV size; EF is 50%, no wall motion abnormalities, Pa systolic pressure is 28mmHg. Abnormal RV diastolic function, with regional wall motion abnormalities noted in RV. keep NPO for cardiac cath on aspirin, statin and SC lovenox 60mg bid. 5. Metabolic encephalopathy due to sepsis resolved. 6. COPD: on 2L baseline at home. Now on 4-6L of oxygen. On steroids and breathing treatments. Chest physiotherapy 7. Nutrition: keep NPO for possible cath today Other medical problems 8. GERD: on famotidine 9. Mitral valve prolapse: stable 10. Nicotine dependence: encouraged to quit. DVT prophylaxis: on therapeutic lovenox dose for NSTEMI Code status: full code This note was generated with Waterfallation software. It may contain incorrect words, spelling, and punctuation that were not noted in checking the note before signing. O Code Visit Inpatient E&M: [id number] [facility] L[facility]
--- NOTE | 2018-04-18 09:47 | PN_ITS ---
Patient Problems: Active and Suspected Problems (Last Reviewed 12/13/17 @ 07:47 by Vanessa Zamora ) Acute on chronic respiratory failure with hypoxia and hypercapnia (Acute) Multifocal possible HCAP (Acute) Elevated troponin (Acute) NSTEMI (non-ST elevated myocardial infarction) (Acute) SVT (supraventricular tachycardia) (Acute) Subjective: Seen and examined. She had a good night and has no complaints. She denies any cough or chest pain. She is on intranasal oxygen on 2 L and saturating well. She denies any fever or chills, no abdominal pain, any diarrhea vomiting. Review of systems otherwise negative. Labs, vitals and medications reviewed. She is for possible cardiac cath later today. Vitals/I&O's: Vital Signs Temp Pulse Resp BP Pulse Ox 99.2 F H 107 H 18 115/71 93 04/18/18 08:00 04/18/18 08:00 04/18/18 08:00 04/18/18 08:00 04/18/18 08:00 Oxygen Flow Rate (L/min) 4 Oxygen Delivery Method Nasal Cannula Weight: 142 lb 13.753 oz Body Mass Index (BMI) 23.3 Intake and Output for Last 24 Hours 04/16/18 04/17/18 04/18/18 23:59 23:59 23:59 Intake Total 3832.9 / 3832.9 2061.1 / 2061.1 929.0 / 929.0 Output Total 1055 / 1055 780 / 780 750 / 750 Balance 2777.9 / 2777.9 1281.1 / 1281.1 179.0 / 179.0 General: Alert, Oriented x3, Cooperative, No apparent distress HEENT: Atraumatic, PERRLA, EOMI, Normocephalic Oral: Moist Mucosa Neck: Supple, No JVD, Negative Carotid Bruits, Negative Hepatojugular Reflux, No Nodes Lungs: Normal air movement, - - Has few crackles right lower lung thomas. Adequate breathsounds bilaterally. Cardiovascular: Regular rate, Regular Rhythm, Normal S1, Normal S2, No murmurs Abdomen: Bowel Sounds Present, Soft, Non Tender, Non-Distended, No Hepato- splenomegaly Extremities: No clubbing, No cyanosis, No edema, Capillary Refill Less than 3 Seconds Skin: No rashes, No breakdown Lymphatic: No Cervical, Supraclavicular, or Inguinal Adenopathy Neurological: Cranial nerves II-XII grossly intact Psych/Mental Status: Normal Affect, Appropriate, Alert and oriented to time, place, person, mood and affect Microbiology Past 72 Hours 04/15/18 21:30 Sputum, Induced/Lukens Gram Stain - Final 04/15/18 21:30 Sputum, Induced/Lukens Respiratory Culture - Final Haemophilus influenzae 04/16/18 16:00 Mucosa - Nasopharyngeal Respiratory Panel (PCR) - Final Rhinovirus Laboratory Results 04/17/18 11:42: POC Glucose 172 H 04/17/18 16:08: POC Glucose 159 H 04/17/18 22:06: POC Glucose 163 H 04/18/18 05:00: WBC 11.7 H, RBC 3.45 L, Hgb 10.8 L, Hct 33.4 L, MCV 96.8, MCH 31.3, MCHC 32.3, RDW 13.2, RDW Differential 44.6 H, Plt Count 214, MPV 10.5, Neut % (Auto) Not Reportable, Absolute Neuts (auto) 10.5 H, Absolute Lymphs ( auto) 0.46 L, Total Counted 100, Neutrophils % (Manual) 84 H, Band Neutrophils % 6 H, Lymphocytes % (Manual) 4 L, Monocytes % (Manual) 3, Metamyelocytes % 2 H , Myelocytes % 1 H, Differential Comment 2+, Diff Path Review May foll, Toxic Granulation 2+, Platelet Estimate ADEQUATE, RBC Morphology NORM C+C 04/18/18 05:00: Sodium 142, Potassium 3.6, Chloride 100, Carbon Dioxide 38.0 H, Anion Gap 4 L, BUN 17, Creatinine 0.53 L, Estim Creat Clear Calc 102.71, Est GFR (MDRD) Af Amer 157, Est GFR (MDRD) Non-Af 130, BUN/Creatinine Ratio 32.3 H, Glucose 164 H, Calcium 8.5, Phosphorus 2.2 L, Magnesium 2.4 04/18/18 08:00: Urine Test Negative Current Medications Acetaminophen (Tylenol) 650 mg PO Q4H PRN PRN PRN Reason: PAIN/FEVER Last Admin: 04/18/18 06:13 Dose: 650 mg Albuterol Sulfate (Ventolin Aerosols) 2.5 mg INHALATION Q2H PRN PRN PRN Reason: SHORTNESS OF BREATH Last Admin: 04/18/18 05:47 Dose: 2.5 mg Albuterol/Ipratropium (Duoneb) 3 ml INHALATION Q4H.RT [facility] Last Admin: 04/18/18 06:48 Dose: 3 ml Amiodarone HCl (Cordarone) 200 mg PO BID [facility] Last Admin: 04/18/18 09:16 Dose: 200 mg Aspirin (Aspirin, Baby) 81 mg PO DAILY [facility] Last Admin: 04/18/18 09:23 Dose: 81 mg Cefdinir (Omnicef [Equiv]) 300 mg PO Q12 [facility] Stop: 04/21/18 22:01 Last Admin: 04/17/18 22:12 Dose: 300 mg Chlorhexidine Gluconate () 1 each TOPICAL DAILY [facility] Last Admin: 04/18/18 08:58 Dose: 1 each Enoxaparin Sodium (Lovenox) 60 mg SC Q12 [facility] Last Admin: 04/18/18 08:20 Dose: Not Given Famotidine (Pepcid) 20 mg PO BID [facility] Last Admin: 04/17/18 22:12 Dose: 20 mg Potassium Phosphate 40 mm/ (Sodium Chloride) 513.3333 mls @ 62.5 mls/hr IV X1 ONE Stop: 04/18/18 14:44 Last Admin: 04/18/18 06:54 Dose: 62.5 mls/hr Sodium Chloride () 1,000 mls @ 15 mls/hr IV .Q48H [facility] PRN Reason: KVO Insulin Human Lispro (Humalog Kwikpen (Bkc)) 0 unit SC ACHS [facility] PRN Reason: Protocol Last Admin: 04/18/18 08:16 Dose: 1 u Nicotine (Nicoderm Cq (Pbkc)) 14 mg TRANSDERM. DAILY [facility] Last Admin: 04/17/18 09:55 Dose: 14 mg Ondansetron HCl (Zofran) 4 mg IV Q4H PRN PRN PRN Reason: NAUSEA Polyethylene Glycol (Miralax) 17 gm PO BID [facility] Last Admin: 04/18/18 08:20 Dose: Not Given Prednisone () 40 mg PO DAILY@0800 [facility] Last Admin: 04/18/18 09:17 Dose: 40 mg Promethazine HCl (Phenergan) 12.5 mg IV Q6H PRN PRN PRN Reason: NAUSEA/VOMITING Senna/Docusate Sodium (Senokot-S, Venessa-Colace) 2 tablet PO BID [facility] Last Admin: 04/18/18 08:58 Dose: Not Given Sodium Chloride () 5 - 30 ml IV UD PRN PRN Reason: SALINE FLUSH Last Admin: 04/17/18 22:17 Dose: 20 ml Medical Necessity - Tobacco Use Smoking Status: Former smoker Assessment/Plan All Active Problems (Last Reviewed 12/13/17 @ 07:47 by Vanessa Zamora) Acute on chronic respiratory failure with hypoxia and hypercapnia (Acute) Multifocal possible HCAP (Acute) Elevated troponin (Acute) NSTEMI (non-ST elevated myocardial infarction) (Acute) SVT (supraventricular tachycardia) (Acute) History of cholecystectomy (Resolved) History of appendectomy (Resolved) History of dilatation and curettage (Resolved) History of left oophorectomy (Resolved) History of section (Resolved) 53-year-old female admitted with complaint of shortness of breath cough and altered mental status. She was intubated on account of acute respiratory failure. 1.Health associated pneumonia * was admitted with severe sepsis, SIRS criteria has now resolved * was initially intubated, but was extubated on 04/16/18. * on oxygen by nasal canula-4L * has remained febrile, with temperature this morning being 99.2F * on oral cefdinir now after extubation * respiratory panel positive for rhinovirus * Respiratory culture grew GNR, possible Hemophilus * blood cultures pending. * urine for strep pneumoniae and legionella were negative. * 2. Acute on chronic hypercarbic respiratory failure due to health associated pneumonia * successfully extubated on 04/16/18 * now on 4L of oxygen by nasal canula * has few crackles in right lower lung thomas * on breathing treatments with albuterol and atrovent, also on IV solumedrol * critical care on board * 3. SVT * has been rate controlled since admission. was on IV amiodarone. * Cardiology on board; recommend switch to PO amiodarone, with IV beta doretha prn * on PO atenolol at home; will resume * now on PO amiodarone 200mg bid, * * 4. NSTEMI * troponin was 1.08 on admission ->1.45->0.929->0.802 * EKG showed:slight ST depression in lateral and inferior leads. * cardiology on board * for likely cath today * 2D echo: normal LV size; EF is 50%, no wall motion abnormalities, Pa systolic pressure is 28mmHg. Abnormal RV diastolic function, with regional wall motion abnormalities noted in RV. * keep NPO for cardiac cath * on aspirin, statin and SC lovenox 60mg bid. * 5. Metabolic encephalopathy due to sepsis * resolved. * 6. COPD: * on 2L baseline at home. * Now on 4-6L of oxygen. On steroids and breathing treatments. Chest physiotherapy 7. Nutrition: keep NPO for possible cath today Other medical problems 8. GERD: on famotidine 9. Mitral valve prolapse: stable 10. Nicotine dependence: encouraged to quit. DVT prophylaxis: on therapeutic lovenox dose for NSTEMI Code status: full code This note was generated with [employer] software. It may contain incorrect words, spelling, and punctuation that were not noted in checking the note before signing. O Code Visit Inpatient E&M: 29495 [facility] Hosp L3
--- NOTE | 2018-04-18 10:06 | CASEMGMT ---
Insurance Review for [facility] providers using [facility] website. , [facility], [facility], [facility]. [facility], [facility], ALEC,Hernandez (cary). Jese REALN RN ACM
[2018-04-18] MEDS: 0.9% Normal Saline 1,000 ML 15 ML IV (12:08)
--- NOTE | 2018-04-18 13:07 | CL.D_ITS ---
Patient Name: ALEXEI FOWLER Study Date: 04/18/2018 Performing: Yamil Merino MD Ht: 63 inches 160 cm : 1965 Wt: 134.7 lbs 61 kg Age: 53 Gender: female BSA: 1.63 PROCEDURE(S) PERFORMED [id number]/LV CLINICAL PROFILE AND INDICATIONS Indications: Suspected CAD Heart Failure: NYHA Class: 2, Newly Diagnosed: Yes, Heart Failure Type: Diastolic Stress/Imaging Stress/Image Study Performed: No CAD Presentations: No Sxs, no angina. CONCLUSIONS Moderate coronary artery disease involving the mid circumflex artery and distal circumflex artery wit h preserved left ventricular ejection fraction. RECOMMENDATIONS Medical therapy DESCRIPTION OF PROCEDURE The patient arrived to the procedure lab. The risks and benefits of the procedure as well as a full d escription of our services here and current unavailability of surgical backup were fully explained to the patient and/or their significant other prior to the catheterization. The Timeout was completed, verifying the correct patient and procedure. The patient's procedural site was prepped and draped in the usual fashion. Local anesthetic was given subcutaneously to right radial region with Lidocaine 2% . Using a modified Seldinger technique, arterial access was obtained via the right radial artery, a 6 Fr sheath was inserted. Left Coronary Artery selective angiography was performed in multiple views u sing a 5 Fr. 4.0 Durham catheter. Right Coronary Artery selective angiography was then performed in mu ltiple views using a 5 Fr. 4.0 Durham catheter. Left Ventriculography was performed in DALY projection using a 5 Fr. Pigtail catheter. LV to AO pullback pressures were then recorded.The arterial sheath wa s pulled and a TR Band was applied for hemostasis. 18cc air CORONARY ANGIOGRAPHY DOMINANCE: Co- Dominant LEFT HEART ASSESSMENT Left Ventricular Ejection Fraction: by LV Gram 60 % Normal LV wall motion Normal Left Ventricular systolic function LEFT MAIN: Angiographically normal LEFT ANTERIOR DECENDING ARTERY: Mild luminal irregularities CIRCUMFLEX ARTERY: MID CIRC: Moderate luminal irregularities up to 50% RIGHT CORONARY ARTERY: Mild luminal irregularities COMPLICATIONS No Complications PROCEDURE MEDICATIONS Fentanyl 50 mcg IV Versed 1 mg IV Oxygen: 6 L/min via nasal cannula Heparin diluted in 23cc Heparinized saline. Patient given 10cc IA of this solution. 04/18/2018 12:43: 13 Verapamil 2.5mg, Ntg 100mcgs, 2000 units of Heparin diluted in 23cc Heparinized saline. Patient give n 10cc IA of this solution. 04/18/2018 12:43:13 SUMMARY OF HEMODYNAMIC DATA Time AIR REST ECG 12:18:27 AO 101/68 (83) SA 12:45:31 LV 128/11, 19 12:52:32 LV 128/9, 21 12:52:39 LV 133/10, 24 12:53:56 LVp 132/10, 23 12:54:00 AOp 122/71 (96) 12:54:05 Signed By Yamil Merino MD On 04/18/2018 13:07:03 Yamil Merino MD
--- NOTE | 2018-04-18 13:54 | NURSING ---
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
[2018-04-18 13:56] LABS: Bedside Glucose 135 mg/dL (70-110)
--- NOTE | 2018-04-18 14:05 | CASEMGMT ---
SW met w/pt and son in the room in regard to discharge plan. Pt has decided she does not want to go to [facility] as she does not want to go to [facility]. SW reviewed the [facility] options again w/pt and son. Initially son stated he wanted to go see the facilities. SW inquired if he would be able to go today so SW can fax a referral first thing tomorrow to start the precert process. After further discussion, pt and son Jose are both agreeable to referral being sent to [facility]. SW called Bridget at [facility], they have beds. Referral faxed. SW will continue to follow. RIANNA Bill, COATING MIXER TENDER
[2018-04-18 17:26] LABS: Bedside Glucose 138 mg/dL (70-110)
[2018-04-18] MEDS: 0.9% Normal Saline 1,000 ML 60 ML IV (17:26)
[2018-04-18] MEDS: Metoprolol Tartrate 25 MG Tablet PO (23:09)
[2018-04-18] MEDS: Atorvastatin Calcium 40 MG Tablet PO (23:10)
[2018-04-18] MEDS: Famotidine 20 MG Tablet PO (23:10)
[2018-04-18 23:20] LABS: Bedside Glucose 115 mg/dL (70-110)
[2018-04-18] MEDS: Cefdinir 300 MG Capsule PO (23:31)
[2018-04-19] VITALS (19 sets, daily range): BP systolic 113–144; BP diastolic 59–68; PULSE 75–106; RESP 16–21; TEMP 36.6–37.1; O2SAT 83–97
[2018-04-19] MEDS: Ipratropium/Albuterol Sulfate 3 ML AMPUL.NEB INHALATION ×6 (02:11→22:48)
[2018-04-19 06:37] LABS: Hematocrit 32.5 % (37-47); Hemoglobin 10.3 g/dl (12.0-15.0); Mean Corp Hgb Conc 31.7 g/gl (32-36); Mean Corpuscular Volume 97.9 fL (81-99); Platelet Count 219 K/mm3 (150-450); RBC Distribution Width CV 13.6 % (11.6-14.6); RBC Distribution Width SD 46.9 fl (35.1-43.9); Red Blood Count 3.32 M/mm3 (4.2-5.4); White Blood Count 14.2 K/mm3 (4.4-11.0)
[2018-04-19 06:45] LABS: Anion Gap 5 (5-15); BUN 15 mg/dL (7-18); Calcium,Total 7.8 mg/dL (8.5-10.1); Chloride 103 mmol/L (98-107); Creatinine, Serum 0.45 mg/dL (0.55-1.02); EST Glomerular Filtration Rate 154 mL/min (>60); Est Glom Filt Rate - Afr Amer 186 mL/min (>60); Estimated Creatinine Clearance 120.97 ml/min; Glucose 91 mg/dL (74-106); Magnesium 2.3 mg/dL (1.6-2.6); Phosphorus 2.7 mg/dL (2.5-4.9); Potassium 3.5 mmol/L (3.5-5.1); Sodium Level 145 mmol/L (136-145)
[2018-04-19 06:47] LABS: Differential Indicated MANUAL DIFF; POSITIVE COUNT YES; POSITIVE DIFFERENTIAL NO; POSITIVE MORPHOLOGY YES
[2018-04-19 07:01] LABS: Bedside Glucose 103 mg/dL (70-110)
[2018-04-19 07:07] LABS: Lymphocyte 24 % (19-41); Metamyelocyte 1 % (0-1); Monocyte 4 % (0-10); Neutrophil-Band 3 % (0-5); Neutrophil-Segmented 68 % (47-70); Platelet Estimate ADEQUATE (ADEQ); Red Cell Morphology NORM C+C NORMAL (NORM C&C); Total Cells Counted 100 (MANUAL DIFF)
[2018-04-19 07:10] LABS: Absolute Neutrophil Count 10.1 X10^3/uL (2.0-7.7)
--- NOTE | 2018-04-19 07:20 | CASEMGMT ---
DIEGO received a voice mail from Beatrice at [facility] and they can take patient. She will start process for insurance authorization. Plan: [facility] under skilled level of care pending insurance approval Ami RICHEY
--- NOTE | 2018-04-19 08:49 | PN_ITS ---
Patient Problems: Active and Suspected Problems (Last Reviewed 12/13/17 @ 07:47 by Vanessa Zamora ) Acute on chronic respiratory failure with hypoxia and hypercapnia (Acute) Multifocal possible HCAP (Acute) Elevated troponin (Acute) NSTEMI (non-ST elevated myocardial infarction) (Acute) SVT (supraventricular tachycardia) (Acute) Subjective: Patient transferred out of the intensive care unit yesterday following a heart catheterization showing no intervention was required. Patient states that she feels tired this morning, but otherwise breathing is doing well. Patient continues to cough, but reports no production. - Physical Exam General: Alert, Oriented x3, Cooperative, No apparent distress, - - Appears older than stated age. Speaking in full sentences. HEENT: Atraumatic, PERRLA, EOMI, Normocephalic, - - Glasses in place. Oral: Moist Mucosa, No Gingival or Mucosal Lesions/ Ulcerations, - - Poor dentition Neck: Supple, No JVD, No Nodes, Trachea Midline Lungs: No rhonchi, No rales, Diminished, Wheezes - Sporadic Cardiovascular: Regular rate, Regular Rhythm, Normal S1, Normal S2, No murmurs, No rub noted, No Gallop Abdomen: Bowel Sounds Present, Soft, Non Tender, Non-Distended Extremities: No clubbing, No cyanosis, No edema, Capillary Refill Less than 3 Seconds Skin: No rashes, No breakdown Musculoskeletal: No Tenderness to Palpation of Joints or Extremities Lymphatic: No Cervical, Supraclavicular, or Inguinal Adenopathy Neurological: Cranial nerves II-XII grossly intact, Neuro grossly intact, Motor Exam 5/5 strength throughout Psych/Mental Status: Alert and oriented to time, place, person, mood and affect Vital Signs Temp Pulse Resp BP Pulse Ox 37.1 C 79 20 H 113/59 L 95 04/19/18 05:18 04/19/18 07:11 04/19/18 07:01 04/19/18 05:18 04/19/18 07:01 Oxygen Flow Rate (L/min) 4 Oxygen Delivery Method Nasal Cannula Weight: 62.9 kg Body Mass Index (BMI) 23.3 Intake and Output for Last 24 Hours 04/17/18 04/18/18 04/19/18 23:59 23:59 23:59 Intake Total 2060.1 / 2060.1 1940.0 / 1940.0 466 / 466 Output Total 780 / 780 1650 / 1650 350 / 350 Balance 1281.1 / 1281.1 290.0 / 290.0 116 / 116 Microbiology Past 72 Hours 04/15/18 21:30 Gram Stain - Final Sputum, Induced/Lukens Respiratory Culture - Final Haemophilus influenzae 04/16/18 16:00 Respiratory Panel (PCR) - Final Mucosa - Nasopharyngeal Rhinovirus Laboratory Tests Past 24 Hrs 04/19/18 04/19/18 06:12 06:12 WBC 14.2 H RBC 3.32 L Hgb 10.3 L Hct 32.5 L MCV 97.9 MCH 31.0 MCHC 31.7 L RDW 13.6 RDW Differential 46.9 H Plt Count 219 MPV 10.0 Neut % (Auto) Not Reportable Absolute Neuts (auto) 10.1 H Absolute Lymphs (auto) 3.40 Total Counted 100 Neutrophils % (Manual) 68 Band Neutrophils % 3 Lymphocytes % (Manual) 24 Monocytes % (Manual) 4 Metamyelocytes % 1 Diff Path Review May foll Platelet Estimate ADEQUATE RBC Morphology NORM C+C Sodium 145 Potassium 3.5 Chloride 103 Carbon Dioxide 37.0 H Anion Gap 5 BUN 15 Creatinine 0.45 L Estim Creat Clear Calc 120.97 Est GFR (MDRD) Af Amer 186 Est GFR (MDRD) Non-Af 154 BUN/Creatinine Ratio 33.0 H Glucose 91 Calcium 7.8 L Phosphorus 2.7 Magnesium 2.3 POC Glucose 04/19/18 04/18/18 04/18/18 06:48 23:08 17:20 POC Glucose 103 115 H 138 H 04/18/18 11:54 POC Glucose 135 H Medical Necessity - Tobacco Use Smoking Status: Former smoker Assessment/Plan All Active Problems (Last Reviewed 12/13/17 @ 07:47 by Vanessa Zamora) Acute on chronic respiratory failure with hypoxia and hypercapnia (Acute) Multifocal possible HCAP (Acute) Elevated troponin (Acute) NSTEMI (non-ST elevated myocardial infarction) (Acute) SVT (supraventricular tachycardia) (Acute) History of cholecystectomy (Resolved) History of appendectomy (Resolved) History of dilatation and curettage (Resolved) History of left oophorectomy (Resolved) History of section (Resolved) RECOMMENDATIONS: 1. Continue bronchodilators, antibiotics. Wean steroids over the next 12- 14 days 2. Wean oxygen as tolerated. Walking oximetry prior to discharge 3. Increase activity as tolerated 4. Rate control per cardiology 5. Okay to discharge from a pulmonary perspective following walking oximetry 6. Follow-up in pulmonary office 2 weeks after discharge from [facility]. IMPRESSIONS: 1. Acute on chronic combined respiratory failure secondary to Haemophilus influenza pneumonia/rhinovirus Patient liberated from the ventilator yesterday and appears to be doing well on baseline nasal cannula oxygen. Patient continues to have a cough, but is tolerating well. Will continue with bronchodilators and antibiotics. Patient will be transition to p.o. prednisone. This can likely be weaned over the next 12-14 days. Continue with aggressive pulmonary toileting with IS, Acapella and out of bed as tolerated. Walking oximetry prior to discharge. Okay to discharge from a pulmonary perspective with follow-up 2 weeks after discharge from [facility] with nurse practitioner. 2. Non-ST elevation NV/SVT Unclear if this is secondary to hypoxemia versus a malignant rhythm with baseline coronary obstruction. Cardiology is currently following. No indication for further troponin measurement. Patient is on aspirin and Lovenox at therapeutic levels. Defer to cardiology on possible intervention with heart catheterization 3. Severe sepsis secondary to Haemophilus influenza pneumonia Patient with reported fever, tachycardia and hypoxemia on presentation. This was present on presentation. Patient's blood pressure is much improved compared to previous. Patient continues to have episodes of tachycardia associated with coughing, but cardiology is following. Rate control defer to cardiology. No contraindication from a pulmonary/critical care perspective. 4. Metabolic encephalopathy She was significant CO2 retention on presentation. Patient is on supplemental oxygen at baseline. This appears to be at baseline. Patient is no longer on fentanyl. 5. Bipolar disorder/history of diverticulitis/mitral valve prolapse/chronic pain syndrome/GERD/hypothyroidism Complicates care, management, recovery and prognosis. Likely okay to continue with baseline medications. Code Visit Inpatient E&M: 37276 [facility] Hosp L2
--- NOTE | 2018-04-19 09:38 | CASEMGMT ---
DIEGO spoke with patient letting her know [facility] can take her, but we have to wait on insurance approval. DIEGO explained if we do not hear from insurance today it will not be until Sunday as insurance does not work over the weekend. Plan: d/c to [facility] pending insurance approval. Ami RICHEY
[2018-04-19] MEDS: Amiodarone 200 MG Tablet PO ×2 (09:52→22:31)
[2018-04-19] MEDS: Cefdinir 300 MG Capsule PO ×2 (09:52→22:37)
[2018-04-19] MEDS: Metoprolol Tartrate 25 MG Tablet PO ×2 (09:52→22:31)
[2018-04-19] MEDS: Famotidine 20 MG Tablet PO ×2 (09:53→22:37)
[2018-04-19 10:45] LABS: Pathologist Review Reviewed
[2018-04-19 10:48] LABS: Pathologist Review Reviewed
--- NOTE | 2018-04-19 11:28 | PCM.PN.HOSP ---
Patient Problems: Active and Suspected Problems (Last Reviewed 12/13/17 @ 07:47 by Vanessa Zamora) Acute on chronic respiratory failure with hypoxia and hypercapnia (Acute) Multifocal possible HCAP (Acute) Elevated troponin (Acute) NSTEMI (non-ST elevated myocardial infarction) (Acute) SVT (supraventricular tachycardia) (Acute) Subjective: Patient is a 53-year-old female with a history of COPD, hypothyroidism and diverticulosis. She was admitted from home via the ED on 04/15/2018 complaint of shortness of breath, cough and altered mental status when she was noticed to be less conscious. On arrival in the ED, patient was intubated for respiratory failure and altered mental status. History taken from her son was at the bedside says she was having fever or chills basically did not look good. Patient had been on admission at [facility], where she was treated for pneumonia. In the ED vitals showed heart rate of 136 with respiratory rate of 27 pulse ox 98% on nonrebreather. She was put on BiPAP but had to be intubated because of respiratory failure. X-ray showed bilateral lower lobe infiltrates greater on the left than the right. In the ED EKG shows sinus tachycardia with heart rate of 1 1 7 bpm and she had runs of SVT with heart rate going up to 148. She was started on metoprolol but had to be put on amiodarone overnight as her heart rate was up in the 200s. Cardiology is on board. She has been managed for health associated pneumonia and was, on IV vancomycin, aztreonam and levofloxacin; this was subsequently switched to IV cefotaxime. She had a cardiac cath on 04/18/2018 which was positive for only mild disease and medical management advocated for now. Patient was successfully extubated on 04/17/2018 has remained stable since and was transferred out to the PCU. Seen and examined this morning. She complained of a cough which is productive of scanty clear sputum. According to her, her oxygen requirements had to be increased to 6 L with ambulation while she was working with physical therapy. Her baseline is around 4 L at home and she was told that she would need to increase her oxygen requirements when she went home with exertion. She denied any fever or chills, any abdominal pain, any chest pain, any diarrhea vomiting. Review of systems otherwise negative. Vitals/I&O's: Vital Signs Temp Pulse Resp BP Pulse Ox 98.5 F 78 18 120/68 83 04/19/18 09:43 04/19/18 09:52 04/19/18 09:43 04/19/18 09:43 04/19/18 09:54 Oxygen Flow Rate (L/min) 4 Oxygen Delivery Method Nasal Cannula Weight: 138 lb 10.732 oz Body Mass Index (BMI) 23.3 Intake and Output for Last 24 Hours 04/17/18 04/18/18 04/19/18 23:59 23:59 23:59 Intake Total 2061.1 / 2061.1 1940.0 / 1940.0 466 / 466 Output Total 780 / 780 1650 / 1650 350 / 350 Balance 1281.1 / 1281.1 290.0 / 290.0 116 / 116 General: Alert, Oriented x3, Cooperative, No apparent distress HEENT: Atraumatic, PERRLA, EOMI, Normocephalic Oral: Moist Mucosa Neck: Supple, No JVD, Negative Carotid Bruits, No Nodes Lungs: - - Diminished breath sounds bibasally with some coarse crackles bibasally. On 6 L of oxygen by nasal cannula Cardiovascular: Regular rate, Regular Rhythm, Normal S1, Normal S2, No murmurs Abdomen: Bowel Sounds Present, Soft, Non Tender, Non-Distended, No Hepato-splenomegaly Extremities: No clubbing, No cyanosis, No edema, Capillary Refill Less than 3 Seconds Skin: No rashes, No breakdown Musculoskeletal: No Tenderness to Palpation of Joints or Extremities Lymphatic: No Cervical, Supraclavicular, or Inguinal Adenopathy Neurological: Cranial nerves II-XII grossly intact Psych/Mental Status: Normal Affect, Appropriate, Alert and oriented to time, place, person, mood and affect Microbiology Past 72 Hours 04/15/18 21:30 Sputum, Induced/Lukens Gram Stain - Final 04/15/18 21:30 Sputum, Induced/Lukens Respiratory Culture - Final Haemophilus influenzae 04/16/18 16:00 Mucosa - Nasopharyngeal Respiratory Panel (PCR) - Final Rhinovirus Laboratory Results 04/18/18 05:00: Diff Path Review Reviewed 04/18/18 11:54: POC Glucose 135 H 04/18/18 17:20: POC Glucose 138 H 04/18/18 23:08: POC Glucose 115 H 04/19/18 06:12: WBC 14.2 H, RBC 3.32 L, Hgb 10.3 L, Hct 32.5 L, MCV 97.9, MCH 31.0, MCHC 31.7 L, RDW 13.6, RDW Differential 46.9 H, Plt Count 219, MPV 10.0, Neut % (Auto) Not Reportable, Absolute Neuts (auto) 10.1 H, Absolute Lymphs (auto) 3.40, Total Counted 100, Neutrophils % (Manual) 68, Band Neutrophils % 3, Lymphocytes % (Manual) 24, Monocytes % (Manual) 4, Metamyelocytes % 1, Diff Path Review Reviewed, Platelet Estimate ADEQUATE, RBC Morphology NORM C+C 04/19/18 06:12: Sodium 145, Potassium 3.5, Chloride 103, Carbon Dioxide 37.0 H, Anion Gap 5, BUN 15, Creatinine 0.45 L, Estim Creat Clear Calc 120.97, Est GFR (MDRD) Af Amer 186, Est GFR (MDRD) Non-Af 154, BUN/Creatinine Ratio 33.0 H, Glucose 91, Calcium 7.8 L, Phosphorus 2.7, Magnesium 2.3 04/19/18 06:48: POC Glucose 103 Current Medications Acetaminophen (Tylenol) 650 mg PO Q4H PRN PRN PRN Reason: PAIN/FEVER Last Admin: 04/18/18 06:13 Dose: 650 mg Albuterol Sulfate (Ventolin Aerosols) 2.5 mg INHALATION Q2H PRN PRN PRN Reason: SHORTNESS OF BREATH Last Admin: 04/18/18 05:47 Dose: 2.5 mg Albuterol/Ipratropium (Duoneb) 3 ml INHALATION Q4H.RT [facility] Last Admin: 04/19/18 10:54 Dose: 3 ml Amiodarone HCl (Cordarone) 200 mg PO BID [facility] Last Admin: 04/19/18 09:52 Dose: 200 mg Aspirin (Aspirin, Baby) 81 mg PO DAILY [facility] Last Admin: 04/18/18 09:23 Dose: 81 mg Atorvastatin Calcium (Lipitor) 40 mg PO QHS [facility] Last Admin: 04/18/18 23:10 Dose: 40 mg Cefdinir (Omnicef [Equiv]) 300 mg PO Q12 [facility] Stop: 04/21/18 22:01 Last Admin: 04/19/18 09:52 Dose: 300 mg Enoxaparin Sodium (Lovenox) 40 mg SC DAILY@0600 [facility] Last Admin: 04/19/18 05:19 Dose: Not Given Famotidine (Pepcid) 20 mg PO BID [facility] Last Admin: 04/19/18 09:53 Dose: 20 mg Sodium Chloride () 1,000 mls @ 15 mls/hr IV .Q48H [facility] PRN Reason: KVO Last Admin: 04/18/18 12:08 Dose: 15 mls/hr Insulin Human Lispro (Humalog Kwikpen (Bkc)) 0 unit SC ACHS [facility] PRN Reason: Protocol Last Admin: 04/19/18 08:14 Dose: Not Given Metoprolol Tartrate (Lopressor (Beta Manuel)) 25 mg PO BID [facility] Last Admin: 04/19/18 09:52 Dose: 25 mg Nicotine (Nicoderm Cq (Pbkc)) 14 mg TRANSDERM. DAILY [facility] Last Admin: 04/19/18 09:53 Dose: Not Given Ondansetron HCl (Zofran) 4 mg IV Q4H PRN PRN PRN Reason: NAUSEA Polyethylene Glycol (Miralax) 17 gm PO BID [facility] Last Admin: 04/19/18 09:53 Dose: Not Given Prednisone () 40 mg PO DAILY@0800 [facility] Last Admin: 04/18/18 09:17 Dose: 40 mg Promethazine HCl (Phenergan) 12.5 mg IV Q6H PRN PRN PRN Reason: NAUSEA/VOMITING Senna/Docusate Sodium (Senokot-S, Venessa-Colace) 2 tablet PO BID [facility] Last Admin: 04/19/18 09:53 Dose: Not Given Sodium Chloride () 5 - 30 ml IV UD PRN PRN Reason: SALINE FLUSH Last Admin: 04/17/18 22:17 Dose: 20 ml Medical Necessity - Tobacco Use Smoking Status: Former smoker Assessment/Plan All Active Problems (Last Reviewed 12/13/17 @ 07:47 by Vanessa Zamora) Acute on chronic respiratory failure with hypoxia and hypercapnia (Acute) Multifocal possible HCAP (Acute) Elevated troponin (Acute) NSTEMI (non-ST elevated myocardial infarction) (Acute) SVT (supraventricular tachycardia) (Acute) History of cholecystectomy (Resolved) History of appendectomy (Resolved) History of dilatation and curettage (Resolved) History of left oophorectomy (Resolved) History of section (Resolved) 53-year-old female admitted with complaint of shortness of breath cough and altered mental status. She was intubated on account of acute respiratory failure. 1.Health associated pneumonia improving. was admitted with severe sepsis, SIRS criteria has now resolved was initially intubated, but was extubated on 04/16/18. on oxygen by nasal canula-4L at home; was increased to 6L with ambulation on oral cefdinir now. respiratory panel positive for rhinovirus Respiratory culture grew GNR, possible Hemophilus blood cultures- no growth after 48 hours urine for strep pneumoniae and legionella were negative. 2. Acute on chronic hypercarbic respiratory failure due to health associated pneumonia successfully extubated on 04/16/18 now on 4L of oxygen by nasal canula; increased to 6L with exertion on breathing treatments with albuterol and atrovent, now on PO prednisone critical care on board 3. SVT has been rate controlled since admission. was on IV amiodarone. Cardiology on board; recommend switch to PO amiodarone, with IV beta manuel prn on PO atenolol at home; will continue holding since BP has been in 110s-120s systolic on PO amiodarone 200mg bid, 4. NSTEMI troponin was 1.08 on admission ->1.45->0.929->0.802 EKG showed:slight ST depression in lateral and inferior leads. cardiology on board 2D echo: normal LV size; EF is 50%, no wall motion abnormalities, Pa systolic pressure is 28mmHg. Abnormal RV diastolic function, with regional wall motion abnormalities noted in RV. cardiac cath(04/18/18): Moderate coronary artery disease involving the mid circumflex artery and distal circumflex artery with preserved left ventricular ejection fraction. Recommendation was for medical therapy. on aspirin, statin 5. Metabolic encephalopathy due to sepsis resolved. 6. COPD: on 2L baseline at home. Now on 4-6L of oxygen. On PO steroids and breathing treatments. Chest physiotherapy 7. Nutrition: cardiac diet Other medical problems 8. GERD: on famotidine 9. Mitral valve prolapse: stable 10. Nicotine dependence: encouraged to quit. DVT prophylaxis:lovenox 40mg daily Code status: full code Disposition: has received PreCert. For dc to SNF once medically stable This note was generated with [employer] dictation software. It may contain incorrect words, spelling, and punctuation that were not noted in checking the note before signing. Code Visit Inpatient E&M: 46264 Subs Hosp L3
--- NOTE | 2018-04-19 11:37 | PN_ITS ---
Patient Problems: Active and Suspected Problems (Last Reviewed 12/13/17 @ 07:47 by Vanessa Zamora ) Acute on chronic respiratory failure with hypoxia and hypercapnia (Acute) Multifocal possible HCAP (Acute) Elevated troponin (Acute) NSTEMI (non-ST elevated myocardial infarction) (Acute) SVT (supraventricular tachycardia) (Acute) Subjective: Patient is a 53-year-old female with a history of COPD, hypothyroidism and diverticulosis. She was admitted from home via the ED on 04/15/2018 complaint of shortness of breath, cough and altered mental status when she was noticed to be less conscious. On arrival in the ED, patient was intubated for respiratory failure and altered mental status. History taken from her son was at the bedside says she was having fever or chills basically did not look good. Patient had been on admission at [facility], where she was treated for pneumonia. In the ED vitals showed heart rate of 136 with respiratory rate of 27 pulse ox 98% on nonrebreather. She was put on BiPAP but had to be intubated because of respiratory failure. X-ray showed bilateral lower lobe infiltrates greater on the left than the right. In the ED EKG shows sinus tachycardia with heart rate of 1 1 7 bpm and she had runs of SVT with heart rate going up to 148. She was started on metoprolol but had to be put on amiodarone overnight as her heart rate was up in the 200s. Cardiology is on board. She has been managed for health associated pneumonia and was, on IV vancomycin, aztreonam and levofloxacin; this was subsequently switched to IV cefotaxime. She had a cardiac cath on 04/18/2018 which was positive for only mild disease and medical management advocated for now. Patient was successfully extubated on 04/17/2018 has remained stable since and was transferred out to the PCU. Seen and examined this morning. She complained of a cough which is productive of scanty clear sputum. According to her, her oxygen requirements had to be increased to 6 L with ambulation while she was working with physical therapy. Her baseline is around 4 L at home and she was told that she would need to increase her oxygen requirements when she went home with exertion. She denied any fever or chills, any abdominal pain, any chest pain, any diarrhea vomiting. Review of systems otherwise negative. Vitals/I&O's: Vital Signs Temp Pulse Resp BP Pulse Ox 98.5 F 78 18 120/68 83 04/19/18 09:43 04/19/18 09:52 04/19/18 09:43 04/19/18 09:43 04/19/18 09:54 Oxygen Flow Rate (L/min) 4 Oxygen Delivery Method Nasal Cannula Weight: 138 lb 10.732 oz Body Mass Index (BMI) 23.3 Intake and Output for Last 24 Hours 04/17/18 04/18/18 04/19/18 23:59 23:59 23:59 Intake Total 2061.1 / 2061.1 1940.0 / 1940.0 466 / 466 Output Total 780 / 780 1650 / 1650 350 / 350 Balance 1281.1 / 1281.1 290.0 / 290.0 116 / 116 General: Alert, Oriented x3, Cooperative, No apparent distress HEENT: Atraumatic, PERRLA, EOMI, Normocephalic Oral: Moist Mucosa Neck: Supple, No JVD, Negative Carotid Bruits, No Nodes Lungs: - - Diminished breath sounds bibasally with some coarse crackles bibasally. On 6 L of oxygen by nasal cannula Cardiovascular: Regular rate, Regular Rhythm, Normal S1, Normal S2, No murmurs Abdomen: Bowel Sounds Present, Soft, Non Tender, Non-Distended, No Hepato- splenomegaly Extremities: No clubbing, No cyanosis, No edema, Capillary Refill Less than 3 Seconds Skin: No rashes, No breakdown Musculoskeletal: No Tenderness to Palpation of Joints or Extremities Lymphatic: No Cervical, Supraclavicular, or Inguinal Adenopathy Neurological: Cranial nerves II-XII grossly intact Psych/Mental Status: Normal Affect, Appropriate, Alert and oriented to time, place, person, mood and affect Microbiology Past 72 Hours 04/15/18 21:30 Sputum, Induced/Lukens Gram Stain - Final 04/15/18 21:30 Sputum, Induced/Lukens Respiratory Culture - Final Haemophilus influenzae 04/16/18 16:00 Mucosa - Nasopharyngeal Respiratory Panel (PCR) - Final Rhinovirus Laboratory Results 04/18/18 05:00: Diff Path Review Reviewed 04/18/18 11:54: POC Glucose 135 H 04/18/18 17:20: POC Glucose 138 H 04/18/18 23:08: POC Glucose 115 H 04/19/18 06:12: WBC 14.2 H, RBC 3.32 L, Hgb 10.3 L, Hct 32.5 L, MCV 97.9, MCH 31.0, MCHC 31.7 L, RDW 13.6, RDW Differential 46.9 H, Plt Count 219, MPV 10.0, Neut % (Auto) Not Reportable, Absolute Neuts (auto) 10.1 H, Absolute Lymphs ( auto) 3.40, Total Counted 100, Neutrophils % (Manual) 68, Band Neutrophils % 3, Lymphocytes % (Manual) 24, Monocytes % (Manual) 4, Metamyelocytes % 1, Diff Path Review Reviewed, Platelet Estimate ADEQUATE, RBC Morphology NORM C+C 04/19/18 06:12: Sodium 145, Potassium 3.5, Chloride 103, Carbon Dioxide 37.0 H, Anion Gap 5, BUN 15, Creatinine 0.45 L, Estim Creat Clear Calc 120.97, Est GFR ( MDRD) Af Amer 186, Est GFR (MDRD) Non-Af 154, BUN/Creatinine Ratio 33.0 H, Glucose 91, Calcium 7.8 L, Phosphorus 2.7, Magnesium 2.3 04/19/18 06:48: POC Glucose 103 Current Medications Acetaminophen (Tylenol) 650 mg PO Q4H PRN PRN PRN Reason: PAIN/FEVER Last Admin: 04/18/18 06:13 Dose: 650 mg Albuterol Sulfate (Ventolin Aerosols) 2.5 mg INHALATION Q2H PRN PRN PRN Reason: SHORTNESS OF BREATH Last Admin: 04/18/18 05:47 Dose: 2.5 mg Albuterol/Ipratropium (Duoneb) 3 ml INHALATION Q4H.RT [facility] Last Admin: 04/19/18 10:54 Dose: 3 ml Amiodarone HCl (Cordarone) 200 mg PO BID [facility] Last Admin: 04/19/18 09:52 Dose: 200 mg Aspirin (Aspirin, Baby) 81 mg PO DAILY [facility] Last Admin: 04/18/18 09:23 Dose: 81 mg Atorvastatin Calcium (Lipitor) 40 mg PO QHS [facility] Last Admin: 04/18/18 23:10 Dose: 40 mg Cefdinir (Omnicef [Equiv]) 300 mg PO Q12 [facility] Stop: 04/21/18 22:01 Last Admin: 04/19/18 09:52 Dose: 300 mg Enoxaparin Sodium (Lovenox) 40 mg SC DAILY@0600 [facility] Last Admin: 04/19/18 05:19 Dose: Not Given Famotidine (Pepcid) 20 mg PO BID [facility] Last Admin: 04/19/18 09:53 Dose: 20 mg Sodium Chloride () 1,000 mls @ 15 mls/hr IV .Q48H [facility] PRN Reason: KVO Last Admin: 04/18/18 12:08 Dose: 15 mls/hr Insulin Human Lispro (Humalog Kwikpen (Bkc)) 0 unit SC ACHS [facility] PRN Reason: Protocol Last Admin: 04/19/18 08:14 Dose: Not Given Metoprolol Tartrate (Lopressor (Beta Manuel)) 25 mg PO BID [facility] Last Admin: 04/19/18 09:52 Dose: 25 mg Nicotine (Nicoderm Cq (Pbkc)) 14 mg TRANSDERM. DAILY [facility] Last Admin: 04/19/18 09:53 Dose: Not Given Ondansetron HCl (Zofran) 4 mg IV Q4H PRN PRN PRN Reason: NAUSEA Polyethylene Glycol (Miralax) 17 gm PO BID [facility] Last Admin: 04/19/18 09:53 Dose: Not Given Prednisone () 40 mg PO DAILY@0800 [facility] Last Admin: 04/18/18 09:17 Dose: 40 mg Promethazine HCl (Phenergan) 12.5 mg IV Q6H PRN PRN PRN Reason: NAUSEA/VOMITING Senna/Docusate Sodium (Senokot-S, Venessa-Colace) 2 tablet PO BID [facility] Last Admin: 04/19/18 09:53 Dose: Not Given Sodium Chloride () 5 - 30 ml IV UD PRN PRN Reason: SALINE FLUSH Last Admin: 04/17/18 22:17 Dose: 20 ml Medical Necessity - Tobacco Use Smoking Status: Former smoker Assessment/Plan All Active Problems (Last Reviewed 12/13/17 @ 07:47 by Vanessa Zamora) Acute on chronic respiratory failure with hypoxia and hypercapnia (Acute) Multifocal possible HCAP (Acute) Elevated troponin (Acute) NSTEMI (non-ST elevated myocardial infarction) (Acute) SVT (supraventricular tachycardia) (Acute) History of cholecystectomy (Resolved) History of appendectomy (Resolved) History of dilatation and curettage (Resolved) History of left oophorectomy (Resolved) History of section (Resolved) 53-year-old female admitted with complaint of shortness of breath cough and altered mental status. She was intubated on account of acute respiratory failure. 1.Health associated pneumonia * improving. * was admitted with severe sepsis, SIRS criteria has now resolved * was initially intubated, but was extubated on 04/16/18. * on oxygen by nasal canula-4L at home; was increased to 6L with ambulation * on oral cefdinir now. * respiratory panel positive for rhinovirus * Respiratory culture grew GNR, possible Hemophilus * blood cultures- no growth after 48 hours * urine for strep pneumoniae and legionella were negative. * 2. Acute on chronic hypercarbic respiratory failure due to health associated pneumonia * successfully extubated on 04/16/18 * now on 4L of oxygen by nasal canula; increased to 6L with exertion * on breathing treatments with albuterol and atrovent, now on PO prednisone * critical care on board * 3. SVT * has been rate controlled since admission. was on IV amiodarone. * Cardiology on board; recommend switch to PO amiodarone, with IV beta manuel prn * on PO atenolol at home; will continue holding since BP has been in 110s-120s systolic * on PO amiodarone 200mg bid, * * 4. NSTEMI * troponin was 1.08 on admission ->1.45->0.929->0.802 * EKG showed:slight ST depression in lateral and inferior leads. * cardiology on board * 2D echo: normal LV size; EF is 50%, no wall motion abnormalities, Pa systolic pressure is 28mmHg. Abnormal RV diastolic function, with regional wall motion abnormalities noted in RV. * cardiac cath(04/18/18): Moderate coronary artery disease involving the mid circumflex artery and distal circumflex artery with preserved left ventricular ejection fraction. Recommendation was for medical therapy. * on aspirin, statin * 5. Metabolic encephalopathy due to sepsis * resolved. * 6. COPD: * on 2L baseline at home. * Now on 4-6L of oxygen. On PO steroids and breathing treatments. Chest physiotherapy 7. Nutrition: cardiac diet Other medical problems 8. GERD: on famotidine 9. Mitral valve prolapse: stable 10. Nicotine dependence: encouraged to quit. DVT prophylaxis:lovenox 40mg daily Code status: full code Disposition: has received PreCert. For dc to SNF once medically stable This note was generated with [employer] dictation software. It may contain incorrect words, spelling, and punctuation that were not noted in checking the note before signing. Code Visit Inpatient E&M: 41041 Subs Hosp L3
[2018-04-19 11:55] LABS: Bedside Glucose 96 mg/dL (70-110)
--- NOTE | 2018-04-19 12:56 | CASEMGMT ---
Precert was attained for pt to go to [facility], as per physician, pt is not ready today for discharge, may be ready tomorrow. SW left a message for Bridget at [facility] letting her know pt will not be ready until tomorrow. SW completed hospital exemption, placed this along w/green sheet and transport forms on chart in anticipation of weekend discharge. SW let pt and son know that we did get precert for pt to go to [facility], and as per physician it is anticipated pt will be able to go tomorrow. Pt and son are now stating that they may want pt to go to [facility]. SW explained that this is why we discussed this yesterday, and needed a choice to start the precert process. SW explained if we change facilities now it could delay pt's discharge as we need to start all over if they decide on a different fdc. After further discussion, pt and son wanted SW to check on [facility]. SW called [facility], they do not have any beds. SW let pt and son know, they are in agreement w/discharge to [facility] when ready. Green sheet on chart, it is anticipated pt will go to [facility] on the weekend. RIANNA Bill, ORAL PATHOLOGIST
[2018-04-19] MEDS: Acetaminophen 325 MG Tablet 650 MG PO ×2 (14:08→22:38)
[2018-04-19 16:25] LABS: Bedside Glucose 92 mg/dL (70-110)
[2018-04-19] MEDS: Atorvastatin Calcium 40 MG Tablet PO (22:37)
[2018-04-19 23:21] LABS: Bedside Glucose 103 mg/dL (70-110)
[2018-04-20] VITALS (19 sets, daily range): BP systolic 99–128; BP diastolic 52–63; PULSE 72–110; RESP 16–20; TEMP 36.4–36.8; O2SAT 93–97
[2018-04-20] MEDS: Ipratropium/Albuterol Sulfate 3 ML AMPUL.NEB INHALATION ×6 (02:53→23:44)
[2018-04-20] MEDS: Enoxaparin 40 MG/0.4 ML Syringe SC (06:46)
[2018-04-20 07:06] LABS: Bedside Glucose 96 mg/dL (70-110)
[2018-04-20 07:17] LABS: Anion Gap 6 (5-15); BUN 7 mg/dL (7-18); BUN/Creat Ratio 17.2 RATIO (10-20); Calcium,Total 7.9 mg/dL (8.5-10.1); Chloride 98 mmol/L (98-107); Creatinine, Serum 0.41 mg/dL (0.55-1.02); EST Glomerular Filtration Rate 174 mL/min (>60); Est Glom Filt Rate - Afr Amer 211 mL/min (>60); Estimated Creatinine Clearance 132.78 ml/min; Glucose 75 mg/dL (74-106); Potassium 3.3 mmol/L (3.5-5.1); Sodium Level 145 mmol/L (136-145)
[2018-04-20 07:19] LABS: Absolute Lymphocyte Count 1.82 X10^3/ul (0.83-4.51); Absolute Neutrophil Count 10.3 X10^3/uL (2.0-7.7); Basophil# 0.03 X10^3/uL; Basophil% 0.2 % (0-1); Eosinophil# 0.06 X10^3/uL; Eosinophils% 0.5 % (0-5); Hematocrit 35.3 % (37-47); Hemoglobin 11.1 g/dl (12.0-15.0); Lymphocyte # 1.82 X10^3/ul (4.0); Lymphocyte % 13.8 % (19-41); Mean Corp Hgb Conc 31.4 g/gl (32-36); Mean Corpuscular Hgb 30.5 pg (27.0-32.0); Mean Platelet Vol. 10.3 fl (6.2-12.0); Monocyte# 0.73 X10^3/uL; Monocyte% 5.5 % (0-10); Neutrophil # 10.27 X10^3/uL (2.7-7.7); Neutrophil % 77.9 % (47-70); Platelet Count 210 K/mm3 (150-450); RBC Distribution Width CV 13.3 % (11.6-14.6); RBC Distribution Width SD 47.5 fl (35.1-43.9); Red Blood Count 3.64 M/mm3 (4.2-5.4); White Blood Count 13.2 K/mm3 (4.4-11.0)
[2018-04-20 07:21] LABS: POSITIVE COUNT NO; POSITIVE DIFFERENTIAL NO; POSITIVE MORPHOLOGY NO
--- NOTE | 2018-04-20 07:37 | PN_ITS ---
Patient Problems: Active and Suspected Problems (Last Reviewed 12/13/17 @ 07:47 by Vanessa Zamora ) Acute on chronic respiratory failure with hypoxia and hypercapnia (Acute) Multifocal possible HCAP (Acute) Elevated troponin (Acute) NSTEMI (non-ST elevated myocardial infarction) (Acute) SVT (supraventricular tachycardia) (Acute) Subjective: Patient did okay overnight. No acute issues were reported. Patient continues to cough, but reports decreased production. Patient remains on nasal cannula oxygen but denies any epistaxis. Patient is asking for cough drops. - Physical Exam General: Alert, Oriented x3, Cooperative, No apparent distress, - - Appears older than stated age. Speaking in full sentences. HEENT: Atraumatic, PERRLA, EOMI, Normocephalic, - - No scleral icterus or injection noted. Oral: Moist Mucosa, No Gingival or Mucosal Lesions/ Ulcerations Neck: Supple, No JVD, No Nodes, Trachea Midline Lungs: No rhonchi, No rales, Diminished, Wheezes, - - Symmetric expansion. No dullness to percussion. Cardiovascular: Regular rate, Regular Rhythm, Normal S1, Normal S2, No murmurs, No rub noted, No Gallop Abdomen: Bowel Sounds Present, Soft, Non Tender, Non-Distended Extremities: No clubbing, No cyanosis, No edema, Capillary Refill Less than 3 Seconds Skin: - - No significant change compared to previous Musculoskeletal: No Tenderness to Palpation of Joints or Extremities Lymphatic: No Cervical, Supraclavicular, or Inguinal Adenopathy Neurological: Cranial nerves II-XII grossly intact, Neuro grossly intact, Motor Exam 5/5 strength throughout Psych/Mental Status: Alert and oriented to time, place, person, mood and affect Vital Signs Temp Pulse Resp BP Pulse Ox 36.4 C L 87 18 103/63 97 04/20/18 02:30 04/20/18 03:00 04/20/18 02:53 04/20/18 02:30 04/20/18 02:30 Oxygen Flow Rate (L/min) 4 Oxygen Delivery Method Nasal Cannula Weight: 59.3 kg Body Mass Index (BMI) 23.3 Intake and Output for Last 24 Hours 04/18/18 04/19/18 04/20/18 23:59 23:59 23:59 Intake Total 1940.0 / 1940.0 1546 / 1546 Output Total 1650 / 1650 950 / 950 Balance 290.0 / 290.0 596 / 596 Microbiology Past 72 Hours 04/15/18 21:30 Gram Stain - Final Sputum, Induced/Lukens Respiratory Culture - Final Haemophilus influenzae 04/16/18 16:00 Respiratory Panel (PCR) - Final Mucosa - Nasopharyngeal Rhinovirus Laboratory Tests Past 24 Hrs 04/18/18 04/19/18 04/20/18 05:00 06:12 05:35 WBC RBC Hgb Hct MCV MCH MCHC RDW RDW Differential Plt Count MPV Immature Gran % (Auto) Neut % (Auto) Lymph % (Auto) [place] % (Auto) Eos % (Auto) Baso % (Auto) Absolute Neuts (auto) Absolute Lymphs (auto) Total Counted Diff Path Review Reviewed Reviewed Sodium 145 Potassium 3.3 L Chloride 98 Carbon Dioxide 41.0 H Anion Gap 6 BUN 7 Creatinine 0.41 L Estim Creat Clear Calc 132.78 Est GFR (MDRD) Af Amer 211 Est GFR (MDRD) Non-Af 174 BUN/Creatinine Ratio 17.2 Glucose 75 Calcium 7.9 L 04/20/18 05:35 WBC 13.2 H RBC 3.64 L Hgb 11.1 L Hct 35.3 L MCV 97.0 MCH 30.5 MCHC 31.4 L RDW 13.3 RDW Differential 47.5 H Plt Count 210 MPV 10.3 Immature Gran % (Auto) 2.100 H Neut % (Auto) 77.9 H Lymph % (Auto) 13.8 L [place] % (Auto) 5.5 Eos % (Auto) 0.5 Baso % (Auto) 0.2 Absolute Neuts (auto) 10.3 H Absolute Lymphs (auto) 1.82 Total Counted Not Reportable Diff Path Review May foll Sodium Potassium Chloride Carbon Dioxide Anion Gap BUN Creatinine Estim Creat Clear Calc Est GFR (MDRD) Af Amer Est GFR (MDRD) Non-Af BUN/Creatinine Ratio Glucose Calcium POC Glucose 04/20/18 04/19/18 04/19/18 06:45 22:29 16:04 POC Glucose 96 103 92 04/19/18 11:50 POC Glucose 96 Medical Necessity - Tobacco Use Smoking Status: Former smoker Assessment/Plan All Active Problems (Last Reviewed 12/13/17 @ 07:47 by Vanessa Zamora) Acute on chronic respiratory failure with hypoxia and hypercapnia (Acute) Multifocal possible HCAP (Acute) Elevated troponin (Acute) NSTEMI (non-ST elevated myocardial infarction) (Acute) SVT (supraventricular tachycardia) (Acute) History of cholecystectomy (Resolved) History of appendectomy (Resolved) History of dilatation and curettage (Resolved) History of left oophorectomy (Resolved) History of section (Resolved) RECOMMENDATIONS: 1. Continue bronchodilators, antibiotics. Wean steroids over the next 12- 14 days 2. Wean oxygen as tolerated. Walking oximetry prior to discharge 3. Increase activity as tolerated 4. Rate control per cardiology 5. Okay to discharge from a pulmonary perspective following walking oximetry 6. Follow-up in pulmonary office 2 weeks after discharge from [facility]. IMPRESSIONS: 1. Acute on chronic combined respiratory failure secondary to Haemophilus influenza pneumonia/rhinovirus Patient tolerating nasal cannula oxygen. Okay to wean oxygen to keep saturations in the lower 90s. Patient is reporting cough, but would not recommend cough drops at this time as they are likely not to be effective and patient needs to pulmonary toileting. Will continue with bronchodilators and antibiotics. Prednisone can likely be weaned over the next 12-14 days. Continue with aggressive pulmonary toileting with IS, Acapella and out of bed as tolerated. Walking oximetry prior to discharge. Okay to discharge from a pulmonary perspective with follow-up 2 weeks after discharge from [facility] with nurse practitioner. 2. Non-ST elevation TX/SVT Unclear if this is secondary to hypoxemia versus a malignant rhythm with baseline coronary obstruction. Cardiology is currently following. No indication for further troponin measurement. Cardiac catheterization did not require any intervention. 3. Severe sepsis secondary to Haemophilus influenza pneumonia Patient with reported fever, tachycardia and hypoxemia on presentation. This was present on presentation. Patient's blood pressure is much improved compared to previous. Patient continues to have episodes of tachycardia associated with coughing, but cardiology is following. Rate control defer to cardiology. No contraindication from a pulmonary/critical care perspective. 4. Metabolic encephalopathy She was significant CO2 retention on presentation. Patient is on supplemental oxygen at baseline. This appears to be at baseline. Patient is no longer on fentanyl. 5. Bipolar disorder/history of diverticulitis/mitral valve prolapse/chronic pain syndrome/GERD/hypothyroidism Complicates care, management, recovery and prognosis. Likely okay to continue with baseline medications. Code Visit Inpatient E&M: 85323 Subs Hosp L2
[2018-04-20] MEDS: predniSONE 20 MG Tablet 40 MG PO (08:29)
--- NOTE | 2018-04-20 09:15 | PCM.PN.CARD ---
Subjectve: Patient seen and evaluated Objective: Vital Signs Temp Pulse Resp BP Pulse Ox 97.9 F 97 20 H 115/62 94 04/20/18 08:24 04/20/18 08:24 04/20/18 08:24 04/20/18 08:24 04/20/18 08:24 Oxygen Flow Rate (L/min) 4 Oxygen Delivery Method Nasal Cannula Weight: 130 lb 11.746 oz Body Mass Index (BMI) 23.3 Intake and Output for Last 24 Hours 04/18/18 04/19/18 04/20/18 23:59 23:59 23:59 Intake Total 1940.0 / 1940.0 1546 / 1546 Output Total 1650 / 1650 950 / 950 Balance 290.0 / 290.0 596 / 596 General: Awake, Alert, Oriented x 3 HEENT: PERRL, EOMI, Sclera Non Icteric Neck: Supple, Good ROM, No Lymph Node Enlargement Lungs: Clear to auscultation Cardiovascular: Regular Rhythm, Normal S1, Normal S2, No Murmurs, No Rubs, No Gallops Vascular: No Carotid Bruits, Normal Femoral Pulses, Normal Radial Pulses, Normal Dorsalis Pedal Pulse, Normal Posterior Tibial Pulses Abdomen: Bowel Sounds Present, Soft, Non Tender, No HSM, No Organomegaly Extremities: No Cyanosis, No Clubbing, No edema Neurological: No Focal Motor or Sensory Deficit 04/20/18 05:35: Sodium 145, Potassium 3.3 L, Chloride 98, Carbon Dioxide 41.0 H, Anion Gap 6, BUN 7, Creatinine 0.41 L, Est GFR (MDRD) Af Amer 211, Est GFR (MDRD) Non-Af 174, BUN/Creatinine Ratio 17.2, Glucose 75, Calcium 7.9 L 04/20/18 05:35: WBC 13.2 H, RBC 3.64 L, Hgb 11.1 L, Hct 35.3 L, MCV 97.0, MCH 30.5, MCHC 31.4 L, RDW 13.3, RDW Differential 47.5 H, Plt Count 210, MPV 10.3, Immature Gran % (Auto) 2.100 H, Neut % (Auto) 77.9 H, Lymph % (Auto) 13.8 L, [place] % (Auto) 5.5, Eos % (Auto) 0.5, Baso % (Auto) 0.2, Absolute Neuts (auto) 10.3 H, Total Counted Not Reportable Rhythm: EKG: ECHO: Stress Test: Cardiac Cath: PCI: CT Surgery: Holter monitor: EPS: PPM: CXR: Chest CT Scan: Medical Necessity - Tobacco Use Smoking Status: Former smoker Assessment/Plan 1. Non-ST elevation myocardial infarction The patient presents with respiratory distress and is noted to have EKG changes and a non-ST elevation myocardial infarction. She appears to be doing better at this time with her ejection fraction noted to be normal by echocardiographic evaluation. Recommendation at this time will be to treat the underlying sepsis and this appears to be under good control. Aspirin Will continue on anticoagulation at this time. She will eventually need an evaluation of her coronary anatomy. The cardiac catheterization demonstrated the following: Normal left main coronary artery. Left anterior descending artery with mild disease. Codominant left circumflex artery with mid circumflex 50% stenosis and mid to distal circumflex artery 50-70% stenosis. Codominant right coronary artery with no high-grade stenosis. Preserved left ventricular systolic function. Based on the above angiographic findings I would recommend aggressive medical therapy. It does not appear that the coronary lesions were enough to cause her to go into the respiratory failure. Smoking cessation has been emphasized. High intensity statin 2. Supraventricular tachycardia Patient is having runs of supraventricular tachycardia. These appear to have abated and has not had any since last night. Will start oral beta-doretha later this afternoon if patient is stable.
--- NOTE | 2018-04-20 09:20 | PN.CARD_ITS ---
Subjectve: Patient seen and evaluated Objective: Vital Signs Temp Pulse Resp BP Pulse Ox 97.9 F 97 20 H 115/62 94 04/20/18 08:24 04/20/18 08:24 04/20/18 08:24 04/20/18 08:24 04/20/18 08:24 Oxygen Flow Rate (L/min) 4 Oxygen Delivery Method Nasal Cannula Weight: 130 lb 11.746 oz Body Mass Index (BMI) 23.3 Intake and Output for Last 24 Hours 04/18/18 04/19/18 04/20/18 23:59 23:59 23:59 Intake Total 1940.0 / 1940.0 1546 / 1546 Output Total 1650 / 1650 950 / 950 Balance 290.0 / 290.0 596 / 596 General: Awake, Alert, Oriented x 3 HEENT: PERRL, EOMI, Sclera Non Icteric Neck: Supple, Good ROM, No Lymph Node Enlargement Lungs: Clear to auscultation Cardiovascular: Regular Rhythm, Normal S1, Normal S2, No Murmurs, No Rubs, No Gallops Vascular: No Carotid Bruits, Normal Femoral Pulses, Normal Radial Pulses, Normal Dorsalis Pedal Pulse, Normal Posterior Tibial Pulses Abdomen: Bowel Sounds Present, Soft, Non Tender, No HSM, No Organomegaly Extremities: No Cyanosis, No Clubbing, No edema Neurological: No Focal Motor or Sensory Deficit 04/20/18 05:35: Sodium 145, Potassium 3.3 L, Chloride 98, Carbon Dioxide 41.0 H , Anion Gap 6, BUN 7, Creatinine 0.41 L, Est GFR (MDRD) Af Amer 211, Est GFR ( MDRD) Non-Af 174, BUN/Creatinine Ratio 17.2, Glucose 75, Calcium 7.9 L 04/20/18 05:35: WBC 13.2 H, RBC 3.64 L, Hgb 11.1 L, Hct 35.3 L, MCV 97.0, MCH 30.5, MCHC 31.4 L, RDW 13.3, RDW Differential 47.5 H, Plt Count 210, MPV 10.3, Immature Gran % (Auto) 2.100 H, Neut % (Auto) 77.9 H, Lymph % (Auto) 13.8 L, [place] % (Auto) 5.5, Eos % (Auto) 0.5, Baso % (Auto) 0.2, Absolute Neuts (auto) 10.3 H, Total Counted Not Reportable Rhythm: EKG: ECHO: Stress Test: Cardiac Cath: PCI: CT Surgery: Holter monitor: EPS: PPM: CXR: Chest CT Scan: Medical Necessity - Tobacco Use Smoking Status: Former smoker Assessment/Plan 1. Non-ST elevation myocardial infarction The patient presents with respiratory distress and is noted to have EKG changes and a non-ST elevation myocardial infarction. * She appears to be doing better at this time with her ejection fraction noted to be normal by echocardiographic evaluation. * Recommendation at this time will be to treat the underlying sepsis and this appears to be under good control. * Aspirin * Will continue on anticoagulation at this time. * She will eventually need an evaluation of her coronary anatomy. * The cardiac catheterization demonstrated the following: Normal left main coronary artery. Left anterior descending artery with mild disease. Codominant left circumflex artery with mid circumflex 50% stenosis and mid to distal circumflex artery 50-70% stenosis. Codominant right coronary artery with no high-grade stenosis. Preserved left ventricular systolic function. Based on the above angiographic findings I would recommend aggressive medical therapy. It does not appear that the coronary lesions were enough to cause her to go into the respiratory failure. Smoking cessation has been emphasized. * High intensity statin * 2. Supraventricular tachycardia * Patient is having runs of supraventricular tachycardia. These appear to have abated and has not had any since last night. * Will start oral beta-doretha later this afternoon if patient is stable.
[2018-04-20] MEDS: Cefdinir 300 MG Capsule PO ×2 (09:34→21:06)
[2018-04-20] MEDS: Famotidine 20 MG Tablet PO ×2 (09:35→21:06)
[2018-04-20] MEDS: Aspirin 81 MG TAB.CHEW PO (09:38)
[2018-04-20] MEDS: Metoprolol Tartrate 25 MG Tablet PO ×2 (09:39→21:06)
[2018-04-20] MEDS: Amiodarone 200 MG Tablet PO (09:46)
[2018-04-20] MEDS: Insulin Lispro 100 UNIT/ML INSULN.PEN SC (12:23)
[2018-04-20 12:40] LABS: Bedside Glucose 160 mg/dL (70-110)
--- NOTE | 2018-04-20 13:21 | PCM.PROGNOTE ---
<Brock Aguayo - Last Filed: 04/20/18 13:21> Patient Problems: Active and Suspected Problems (Last Reviewed 12/13/17 @ 07:47 by Vanessa Zamora) Acute on chronic respiratory failure with hypoxia and hypercapnia (Acute) Multifocal possible HCAP (Acute) Elevated troponin (Acute) NSTEMI (non-ST elevated myocardial infarction) (Acute) SVT (supraventricular tachycardia) (Acute) Subjective: Patient remains very weak, she remained short of breath at rest, and very short of breath with mild exertion. She continues to have a mildly productive cough with clear sputum production. No hemoptysis, no fevers or chills, no night sweats, no swelling of her lower extremities, no chest pain or tightness. - Physical Exam General: Alert, Oriented x3, Cooperative HEENT: Atraumatic, PERRLA, EOMI, Normocephalic Neck: Supple, No JVD, Negative Carotid Bruits Lungs: Diminished, Rales - BL bases, Wheezes - Diffuse wheezing throughout Cardiovascular: Regular rate, No murmurs Abdomen: Bowel Sounds Present, Soft, Non Tender Extremities: No edema, Capillary Refill Less than 3 Seconds Skin: No rashes, No breakdown Musculoskeletal: No Tenderness to Palpation of Joints or Extremities Neurological: Cranial nerves II-XII grossly intact Psych/Mental Status: Normal Affect, Appropriate, Alert and oriented to time, place, person, mood and affect Vital Signs Temp Pulse Resp BP Pulse Ox 97.9 F 99 16 105/56 L 94 04/20/18 08:24 04/20/18 11:20 04/20/18 11:20 04/20/18 09:39 04/20/18 08:24 Oxygen Flow Rate (L/min) 4 Oxygen Delivery Method Nasal Cannula Weight: 59.3 kg Body Mass Index (BMI) 23.3 Intake and Output for Last 24 Hours 04/18/18 04/19/18 04/20/18 23:59 23:59 23:59 Intake Total 1940.0 / 1940.0 1546 / 1546 Output Total 1650 / 1650 950 / 950 Balance 290.0 / 290.0 596 / 596 Microbiology Past 72 Hours 04/15/18 21:30 Gram Stain - Final Sputum, Induced/Lukens Respiratory Culture - Final Haemophilus influenzae 04/16/18 16:00 Respiratory Panel (PCR) - Final Mucosa - Nasopharyngeal Rhinovirus Laboratory Tests Past 24 Hrs 04/20/18 04/20/18 05:35 05:35 WBC 13.2 H RBC 3.64 L Hgb 11.1 L Hct 35.3 L MCV 97.0 MCH 30.5 MCHC 31.4 L RDW 13.3 RDW Differential 47.5 H Plt Count 210 MPV 10.3 Immature Gran % (Auto) 2.100 H Neut % (Auto) 77.9 H Lymph % (Auto) 13.8 L [place] % (Auto) 5.5 Eos % (Auto) 0.5 Baso % (Auto) 0.2 Absolute Neuts (auto) 10.3 H Absolute Lymphs (auto) 1.82 Total Counted Not Reportable Diff Path Review February Sodium 145 Potassium 3.3 L Chloride 98 Carbon Dioxide 41.0 H Anion Gap 6 BUN 7 Creatinine 0.41 L Estim Creat Clear Calc 132.78 Est GFR (MDRD) Af Amer 211 Est GFR (MDRD) Non-Af 174 BUN/Creatinine Ratio 17.2 Glucose 75 Calcium 7.9 L POC Glucose 04/20/18 04/20/18 04/19/18 11:53 06:45 22:29 POC Glucose 160 H 96 103 04/19/18 16:04 POC Glucose 92 Medical Necessity - Tobacco Use Smoking Status: Former smoker Assessment/Plan All Active Problems (Last Reviewed 12/13/17 @ 07:47 by Vanessa Zamora) Acute on chronic respiratory failure with hypoxia and hypercapnia (Acute) Multifocal possible HCAP (Acute) Elevated troponin (Acute) NSTEMI (non-ST elevated myocardial infarction) (Acute) SVT (supraventricular tachycardia) (Acute) History of cholecystectomy (Resolved) History of appendectomy (Resolved) History of dilatation and curettage (Resolved) History of left oophorectomy (Resolved) History of section (Resolved) 1. Healthcare associated pneumonia-rhinovirus, Haemophilus influenza. Continue Ceftin ear. Improving, small improvement leukocytosis, afebrile. Oxygenation requirements have decreased. Still he still remains severely short of breath both at rest and with mild exertion. Blood cultures negative to date. Urine antigens are negative. 2. Non-ST segment elevation myocardial infarction-cardiology following. Continue aspirin, statin, beta-doretha, will defer starting NORMA inhibitor as her blood pressure is running low normal.s/p cath. medical management only at this time. 3. Acute on chronic hypercarbic respiratory failure secondary to #1-extubated 710. Oxygen decreased from 6-4 L and remaining stable, still short of breath. Pulmonology following. Currently stable. 2 L baseline O2. 4. SVT-maze mildly tachycardic, cardiology is restarted beta-doretha. We will continue to monitor. Continue amiodarone. 5. COPD - taper PO steroids. Continue Aerosols. IS. PEP. 6. GERD - pepcid 7. Hyperglycemia - check a1c. on SSI. suspect diabetic. 8. Hypokalemia - replete and recheck. DVT ppx: lovenox DC planning: accepted at [facility], possibly ready tomorrow. This patient was seen by Brock Aguayo PA-C under the supervision of Doctor Liriano. <Elena Liriano - Last Filed: 04/20/18 14:26> - Physical Exam Vital Signs Temp Pulse Resp BP Pulse Ox 97.9 F 99 16 105/56 L 94 04/20/18 08:24 04/20/18 11:20 04/20/18 11:20 04/20/18 09:39 04/20/18 08:24 Oxygen Flow Rate (L/min) 4 Oxygen Delivery Method Nasal Cannula Weight: 59.3 kg Body Mass Index (BMI) 23.3 Intake and Output for Last 24 Hours 04/18/18 04/19/18 04/20/18 23:59 23:59 23:59 Intake Total 1940.0 / 1940.0 1546 / 1546 Output Total 1650 / 1650 950 / 950 Balance 290.0 / 290.0 596 / 596 Microbiology Past 72 Hours 04/15/18 21:30 Gram Stain - Final Sputum, Induced/Lukens Respiratory Culture - Final Haemophilus influenzae Laboratory Tests Past 24 Hrs 04/20/18 04/20/18 04/20/18 05:35 05:35 05:35 WBC 13.2 H RBC 3.64 L Hgb 11.1 L Hct 35.3 L MCV 97.0 MCH 30.5 MCHC 31.4 L RDW 13.3 RDW Differential 47.5 H Plt Count 210 MPV 10.3 Immature Gran % (Auto) 2.100 H Neut % (Auto) 77.9 H Lymph % (Auto) 13.8 L [place] % (Auto) 5.5 Eos % (Auto) 0.5 Baso % (Auto) 0.2 Absolute Neuts (auto) 10.3 H Absolute Lymphs (auto) 1.82 Total Counted Not Reportable Diff Path Review February Sodium 145 Potassium 3.3 L Chloride 98 Carbon Dioxide 41.0 H Anion Gap 6 BUN 7 Creatinine 0.41 L Estim Creat Clear Calc 132.78 Est GFR (MDRD) Af Amer 211 Est GFR (MDRD) Non-Af 174 BUN/Creatinine Ratio 17.2 Glucose 75 Hemoglobin A1c 5.8 Calcium 7.9 L POC Glucose 04/20/18 04/20/18 04/19/18 11:53 06:45 22:29 POC Glucose 160 H 96 103 04/19/18 16:04 POC Glucose 92 Assessment/Plan Patient was seen and examined. I agree with the interval history and physical exam and assessment and plan as documented by physician assistant casino shift manager Brock Aguayo. Patient still has a cough, but overall feels better. Has progressed to her home oxygen 2 L. Denies any fever or chills or worsening shortness of breath. Vitals reviewed and are stable Physical exam showed diminished air entry all over the lung thomas, no wheezes with heard Tachycardia noted on telemetry, beta blockers to start this afternoon by cardiology Labs show hypokalemia of 3.3, improving leukocytosis but otherwise rest of labs are unremarkable We will continue on antibiotics, breathing treatments, steroid taper. Discharge to custodial facility tomorrow Code Visit Inpatient E&M: 42695 Subs Hosp L2
--- NOTE | 2018-04-20 13:32 | PN_ITS ---
<Brock Aguayo - Last Filed: 04/20/18 13:21> Patient Problems: Active and Suspected Problems (Last Reviewed 12/13/17 @ 07:47 by Vanessa Zamora ) Acute on chronic respiratory failure with hypoxia and hypercapnia (Acute) Multifocal possible HCAP (Acute) Elevated troponin (Acute) NSTEMI (non-ST elevated myocardial infarction) (Acute) SVT (supraventricular tachycardia) (Acute) Subjective: Patient remains very weak, she remained short of breath at rest, and very short of breath with mild exertion. She continues to have a mildly productive cough with clear sputum production. No hemoptysis, no fevers or chills, no night sweats, no swelling of her lower extremities, no chest pain or tightness. - Physical Exam General: Alert, Oriented x3, Cooperative HEENT: Atraumatic, PERRLA, EOMI, Normocephalic Neck: Supple, No JVD, Negative Carotid Bruits Lungs: Diminished, Rales - BL bases, Wheezes - Diffuse wheezing throughout Cardiovascular: Regular rate, No murmurs Abdomen: Bowel Sounds Present, Soft, Non Tender Extremities: No edema, Capillary Refill Less than 3 Seconds Skin: No rashes, No breakdown Musculoskeletal: No Tenderness to Palpation of Joints or Extremities Neurological: Cranial nerves II-XII grossly intact Psych/Mental Status: Normal Affect, Appropriate, Alert and oriented to time, place, person, mood and affect Vital Signs Temp Pulse Resp BP Pulse Ox 97.9 F 99 16 105/56 L 94 04/20/18 08:24 04/20/18 11:20 04/20/18 11:20 04/20/18 09:39 04/20/18 08:24 Oxygen Flow Rate (L/min) 4 Oxygen Delivery Method Nasal Cannula Weight: 59.3 kg Body Mass Index (BMI) 23.3 Intake and Output for Last 24 Hours 04/18/18 04/19/18 04/20/18 23:59 23:59 23:59 Intake Total 1940.0 / 1940.0 1546 / 1546 Output Total 1650 / 1650 950 / 950 Balance 290.0 / 290.0 596 / 596 Microbiology Past 72 Hours 04/15/18 21:30 Gram Stain - Final Sputum, Induced/Lukens Respiratory Culture - Final Haemophilus influenzae 04/16/18 16:00 Respiratory Panel (PCR) - Final Mucosa - Nasopharyngeal Rhinovirus Laboratory Tests Past 24 Hrs 04/20/18 04/20/18 05:35 05:35 WBC 13.2 H RBC 3.64 L Hgb 11.1 L Hct 35.3 L MCV 97.0 MCH 30.5 MCHC 31.4 L RDW 13.3 RDW Differential 47.5 H Plt Count 210 MPV 10.3 Immature Gran % (Auto) 2.100 H Neut % (Auto) 77.9 H Lymph % (Auto) 13.8 L Kerr % (Auto) 5.5 Eos % (Auto) 0.5 Baso % (Auto) 0.2 Absolute Neuts (auto) 10.3 H Absolute Lymphs (auto) 1.82 Total Counted Not Reportable Diff Path Review February Sodium 145 Potassium 3.3 L Chloride 98 Carbon Dioxide 41.0 H Anion Gap 6 BUN 7 Creatinine 0.41 L Estim Creat Clear Calc 132.78 Est GFR (MDRD) Af Amer 211 Est GFR (MDRD) Non-Af 174 BUN/Creatinine Ratio 17.2 Glucose 75 Calcium 7.9 L POC Glucose 04/20/18 04/20/18 04/19/18 11:53 06:45 22:29 POC Glucose 160 H 96 103 04/19/18 16:04 POC Glucose 92 Medical Necessity - Tobacco Use Smoking Status: Former smoker Assessment/Plan All Active Problems (Last Reviewed 12/13/17 @ 07:47 by Vanessa Zamora) Acute on chronic respiratory failure with hypoxia and hypercapnia (Acute) Multifocal possible HCAP (Acute) Elevated troponin (Acute) NSTEMI (non-ST elevated myocardial infarction) (Acute) SVT (supraventricular tachycardia) (Acute) History of cholecystectomy (Resolved) History of appendectomy (Resolved) History of dilatation and curettage (Resolved) History of left oophorectomy (Resolved) History of section (Resolved) 1. Healthcare associated pneumonia-rhinovirus, Haemophilus influenza. Continue Ceftin ear. Improving, small improvement leukocytosis, afebrile. Oxygenation requirements have decreased. Still he still remains severely short of breath both at rest and with mild exertion. Blood cultures negative to date. Urine antigens are negative. 2. Non-ST segment elevation myocardial infarction-cardiology following. Continue aspirin, statin, beta-doretha, will defer starting NORMA inhibitor as her blood pressure is running low normal.s/p cath. medical management only at this time. 3. Acute on chronic hypercarbic respiratory failure secondary to #1-extubated 710. Oxygen decreased from 6-4 L and remaining stable, still short of breath. Pulmonology following. Currently stable. 2 L baseline O2. 4. SVT-maze mildly tachycardic, cardiology is restarted beta-doretha. We will continue to monitor. Continue amiodarone. 5. COPD - taper PO steroids. Continue Aerosols. IS. PEP. 6. GERD - pepcid 7. Hyperglycemia - check a1c. on SSI. suspect diabetic. 8. Hypokalemia - replete and recheck. DVT ppx: lovenox DC planning: accepted at [facility], possibly ready tomorrow. This patient was seen by Brock Aguayo PA-C under the supervision of Doctor Liriano. <Elena Liriano - Last Filed: 04/20/18 14:26> - Physical Exam Vital Signs Temp Pulse Resp BP Pulse Ox 97.9 F 99 16 105/56 L 94 04/20/18 08:24 04/20/18 11:20 04/20/18 11:20 04/20/18 09:39 04/20/18 08:24 Oxygen Flow Rate (L/min) 4 Oxygen Delivery Method Nasal Cannula Weight: 59.3 kg Body Mass Index (BMI) 23.3 Intake and Output for Last 24 Hours 04/18/18 04/19/18 04/20/18 23:59 23:59 23:59 Intake Total 1940.0 / 1940.0 1546 / 1546 Output Total 1650 / 1650 950 / 950 Balance 290.0 / 290.0 596 / 596 Microbiology Past 72 Hours 04/15/18 21:30 Gram Stain - Final Sputum, Induced/Lukens Respiratory Culture - Final Haemophilus influenzae Laboratory Tests Past 24 Hrs 04/20/18 04/20/18 04/20/18 05:35 05:35 05:35 WBC 13.2 H RBC 3.64 L Hgb 11.1 L Hct 35.3 L MCV 97.0 MCH 30.5 MCHC 31.4 L RDW 13.3 RDW Differential 47.5 H Plt Count 210 MPV 10.3 Immature Gran % (Auto) 2.100 H Neut % (Auto) 77.9 H Lymph % (Auto) 13.8 L Kerr % (Auto) 5.5 Eos % (Auto) 0.5 Baso % (Auto) 0.2 Absolute Neuts (auto) 10.3 H Absolute Lymphs (auto) 1.82 Total Counted Not Reportable Diff Path Review February Sodium 145 Potassium 3.3 L Chloride 98 Carbon Dioxide 41.0 H Anion Gap 6 BUN 7 Creatinine 0.41 L Estim Creat Clear Calc 132.78 Est GFR (MDRD) Af Amer 211 Est GFR (MDRD) Non-Af 174 BUN/Creatinine Ratio 17.2 Glucose 75 Hemoglobin A1c 5.8 Calcium 7.9 L POC Glucose 04/20/18 04/20/18 04/19/18 11:53 06:45 22:29 POC Glucose 160 H 96 103 04/19/18 16:04 POC Glucose 92 Assessment/Plan Patient was seen and examined. I agree with the interval history and physical exam and assessment and plan as documented by physician program services assistant Brock Aguayo. Patient still has a cough, but overall feels better. Has progressed to her home oxygen 2 L. Denies any fever or chills or worsening shortness of breath. Vitals reviewed and are stable Physical exam showed diminished air entry all over the lung thomas, no wheezes with heard Tachycardia noted on telemetry, beta blockers to start this afternoon by cardiology Labs show hypokalemia of 3.3, improving leukocytosis but otherwise rest of labs are unremarkable We will continue on antibiotics, breathing treatments, steroid taper. Discharge to [facility] tomorrow Code Visit Inpatient E&M: [id number] Subs Hosp L2
[2018-04-20 13:56] LABS: Hemoglobin A1c 5.8 % (4.2-6.3)
[2018-04-20] MEDS: Atorvastatin Calcium 40 MG Tablet PO (21:07)
[2018-04-21] VITALS (11 sets, daily range): BP systolic 102–105; BP diastolic 51–71; PULSE 82–107; RESP 16–20; TEMP 36.6–36.7; O2SAT 94–96
[2018-04-21] MEDS: Ipratropium/Albuterol Sulfate 3 ML AMPUL.NEB INHALATION ×3 (03:33→10:57)
[2018-04-21] MEDS: Enoxaparin 40 MG/0.4 ML Syringe SC (05:00)
[2018-04-21 05:53] LABS: Absolute Lymphocyte Count 2.18 X10^3/ul (0.83-4.51); Absolute Neutrophil Count 8.9 X10^3/uL (2.0-7.7); Basophil# 0.03 X10^3/uL; Basophil% 0.2 % (0-1); Eosinophil# 0.08 X10^3/uL; Eosinophils% 0.7 % (0-5); Hematocrit 34.6 % (37-47); Hemoglobin 11.1 g/dl (12.0-15.0); Lymphocyte # 2.18 X10^3/ul (4.0); Mean Corp Hgb Conc 32.1 g/gl (32-36); Mean Corpuscular Hgb 30.8 pg (27.0-32.0); Mean Corpuscular Volume 96.1 fL (81-99); Monocyte# 0.77 X10^3/uL; Monocyte% 6.4 % (0-10); Neutrophil # 8.85 X10^3/uL (2.7-7.7); Neutrophil % 73.1 % (47-70); Platelet Count 214 K/mm3 (150-450); RBC Distribution Width CV 13.1 % (11.6-14.6); RBC Distribution Width SD 46.5 fl (35.1-43.9); White Blood Count 12.1 K/mm3 (4.4-11.0)
[2018-04-21 05:56] LABS: POSITIVE COUNT NO; POSITIVE DIFFERENTIAL NO; POSITIVE MORPHOLOGY NO
[2018-04-21 06:25] LABS: Anion Gap 7 (5-15); BUN 12 mg/dL (7-18); BUN/Creat Ratio 23.5 RATIO (10-20); Chloride 98 mmol/L (98-107); Creatinine, Serum 0.51 mg/dL (0.55-1.02); EST Glomerular Filtration Rate 134 mL/min (>60); Est Glom Filt Rate - Afr Amer 162 mL/min (>60); Estimated Creatinine Clearance 106.74 ml/min; Glucose 94 mg/dL (74-106); Potassium 3.5 mmol/L (3.5-5.1); Sodium Level 140 mmol/L (136-145)
[2018-04-21] MEDS: predniSONE 20 MG Tablet 30 MG PO (07:53)
--- NOTE | 2018-04-21 08:07 | PCM.PROGNOTE ---
Patient Problems: Active and Suspected Problems (Last Reviewed 12/13/17 @ 07:47 by Vansesa Zamora) Acute on chronic respiratory failure with hypoxia and hypercapnia (Acute) Multifocal possible HCAP (Acute) Elevated troponin (Acute) NSTEMI (non-ST elevated myocardial infarction) (Acute) SVT (supraventricular tachycardia) (Acute) Subjective: Patient did well overnight. Patient reports cough continues to improve. Patient has remained on 4 L nasal cannula. Patient continues to report overall sensation of weakness limiting mobility. Patient currently awaiting disposition plan. - Physical Exam General: Alert, Oriented x3, Cooperative, No apparent distress, - - Appears older than stated age. Speaking in full sentences. HEENT: Atraumatic, PERRLA, EOMI, Normocephalic, - - No scleral icterus or injection noted. Glasses in place. Oral: Moist Mucosa, No Gingival or Mucosal Lesions/ Ulcerations Neck: Supple, No JVD, No Nodes, Trachea Midline Lungs: No rhonchi, No wheeze, No rales, Diminished, - - Symmetric expansion. No dullness to percussion. Cardiovascular: Regular rate, Regular Rhythm, Normal S1, Normal S2, No murmurs, No rub noted, No Gallop Abdomen: Bowel Sounds Present, Soft, Non Tender, Non-Distended Extremities: No cyanosis, No edema, Capillary Refill Less than 3 Seconds, Clubbing Skin: - - No significant change compared to previous Musculoskeletal: No Tenderness to Palpation of Joints or Extremities Lymphatic: No Cervical, Supraclavicular, or Inguinal Adenopathy Neurological: Cranial nerves II-XII grossly intact, Neuro grossly intact, Sensory exam intact to light touch and pain Psych/Mental Status: Alert and oriented to time, place, person, mood and affect Vital Signs Temp Pulse Resp BP Pulse Ox 36.7 C 91 18 102/51 L 96 04/21/18 04:56 04/21/18 07:00 04/21/18 04:56 04/21/18 04:56 04/21/18 04:56 Oxygen Flow Rate (L/min) 4 Oxygen Delivery Method Nasal Cannula Weight: 60.1 kg Body Mass Index (BMI) 23.3 Intake and Output for Last 24 Hours 04/19/18 04/20/18 04/21/18 23:59 23:59 23:59 Intake Total 1546 / 1546 750 / 750 50 / 50 Output Total 950 / 950 Balance 596 / 596 750 / 750 50 / 50 Laboratory Tests Past 24 Hrs 04/20/18 04/21/18 04/21/18 05:35 05:25 05:25 WBC 12.1 H RBC 3.60 L Hgb 11.1 L Hct 34.6 L MCV 96.1 MCH 30.8 MCHC 32.1 RDW 13.1 RDW Differential 46.5 H Plt Count 214 MPV 10.0 Immature Gran % (Auto) 1.600 H Neut % (Auto) 73.1 H Lymph % (Auto) 18.0 L [place] % (Auto) 6.4 Eos % (Auto) 0.7 Baso % (Auto) 0.2 Absolute Neuts (auto) 8.9 H Absolute Lymphs (auto) 2.18 Total Counted Not Reportable Sodium 140 Potassium 3.5 Chloride 98 Carbon Dioxide 35.0 H Anion Gap 7 BUN 12 Creatinine 0.51 L Estim Creat Clear Calc 106.74 Est GFR (MDRD) Af Amer 162 Est GFR (MDRD) Non-Af 134 BUN/Creatinine Ratio 23.5 H Glucose 94 Hemoglobin A1c 5.8 Calcium 8.0 L POC Glucose 04/20/18 11:53 POC Glucose 160 H Medical Necessity - Tobacco Use Smoking Status: Former smoker Assessment/Plan All Active Problems (Last Reviewed 12/13/17 @ 07:47 by Vanessa Zamora) Acute on chronic respiratory failure with hypoxia and hypercapnia (Acute) Multifocal possible HCAP (Acute) Elevated troponin (Acute) NSTEMI (non-ST elevated myocardial infarction) (Acute) SVT (supraventricular tachycardia) (Acute) History of cholecystectomy (Resolved) History of appendectomy (Resolved) History of dilatation and curettage (Resolved) History of left oophorectomy (Resolved) History of section (Resolved) RECOMMENDATIONS: 1. Continue bronchodilators, antibiotics. Wean steroids over the next 12-14 days 2. Wean oxygen as tolerated. Walking oximetry prior to discharge 3. Increase activity as tolerated 4. Rate control per cardiology 5. Okay to discharge from a pulmonary perspective following walking oximetry 6. Follow-up in pulmonary office 2 weeks after discharge from [facility]. IMPRESSIONS: 1. Acute on chronic combined respiratory failure secondary to Haemophilus influenza pneumonia/rhinovirus Patient tolerating nasal cannula oxygen. Okay to wean oxygen to keep saturations in the lower 90s. Patient is reporting cough, but would not recommend cough drops at this time as they are likely not to be effective and patient needs to pulmonary toileting. Will continue with bronchodilators and antibiotics. Prednisone will be weaned today and should continue to be weaned over the next 8-12 days. Continue with aggressive pulmonary toileting with IS, Acapella and out of bed as tolerated. Walking oximetry prior to discharge. Okay to discharge from a pulmonary perspective with follow-up 2 weeks after discharge from [facility] with nurse practitioner. 2. Non-ST elevation AK/SVT RESOLVED > Unclear if this is secondary to hypoxemia versus a malignant rhythm with baseline coronary obstruction. Cardiology is currently following. No indication for further troponin measurement. Cardiac catheterization did not require any intervention. Patient being treated with medical management 3. Severe sepsis secondary to Haemophilus influenza pneumonia RESOLVED > patient with reported fever, tachycardia and hypoxemia on presentation. This was present on presentation. Patient's blood pressure is much improved compared to previous. Patient continues to have episodes of tachycardia associated with coughing, but cardiology is following. Rate control defer to cardiology. No contraindication from a pulmonary/critical care perspective. 4. Metabolic encephalopathy RESOLVED > She was significant CO2 retention on presentation. Patient is on supplemental oxygen at baseline. This appears to be at baseline. Patient is no longer on fentanyl. 5. Bipolar disorder/history of diverticulitis/mitral valve prolapse/chronic pain syndrome/GERD/hypothyroidism Complicates care, management, recovery and prognosis. Likely okay to continue with baseline medications. Code Visit Inpatient E&M: [id number] [facility] L2
--- NOTE | 2018-04-21 08:11 | PN_ITS ---
Patient Problems: Active and Suspected Problems (Last Reviewed 12/13/17 @ 07:47 by Vanessa Zamora ) Acute on chronic respiratory failure with hypoxia and hypercapnia (Acute) Multifocal possible HCAP (Acute) Elevated troponin (Acute) NSTEMI (non-ST elevated myocardial infarction) (Acute) SVT (supraventricular tachycardia) (Acute) Subjective: Patient did well overnight. Patient reports cough continues to improve. Patient has remained on 4 L nasal cannula. Patient continues to report overall sensation of weakness limiting mobility. Patient currently awaiting disposition plan. - Physical Exam General: Alert, Oriented x3, Cooperative, No apparent distress, - - Appears older than stated age. Speaking in full sentences. HEENT: Atraumatic, PERRLA, EOMI, Normocephalic, - - No scleral icterus or injection noted. Glasses in place. Oral: Moist Mucosa, No Gingival or Mucosal Lesions/ Ulcerations Neck: Supple, No JVD, No Nodes, Trachea Midline Lungs: No rhonchi, No wheeze, No rales, Diminished, - - Symmetric expansion. No dullness to percussion. Cardiovascular: Regular rate, Regular Rhythm, Normal S1, Normal S2, No murmurs, No rub noted, No Gallop Abdomen: Bowel Sounds Present, Soft, Non Tender, Non-Distended Extremities: No cyanosis, No edema, Capillary Refill Less than 3 Seconds, Clubbing Skin: - - No significant change compared to previous Musculoskeletal: No Tenderness to Palpation of Joints or Extremities Lymphatic: No Cervical, Supraclavicular, or Inguinal Adenopathy Neurological: Cranial nerves II-XII grossly intact, Neuro grossly intact, Sensory exam intact to light touch and pain Psych/Mental Status: Alert and oriented to time, place, person, mood and affect Vital Signs Temp Pulse Resp BP Pulse Ox 36.7 C 91 18 102/51 L 96 04/21/18 04:56 04/21/18 07:00 04/21/18 04:56 04/21/18 04:56 04/21/18 04:56 Oxygen Flow Rate (L/min) 4 Oxygen Delivery Method Nasal Cannula Weight: 60.1 kg Body Mass Index (BMI) 23.3 Intake and Output for Last 24 Hours 04/19/18 04/20/18 04/21/18 23:59 23:59 23:59 Intake Total 1546 / 1546 750 / 750 50 / 50 Output Total 950 / 950 Balance 596 / 596 750 / 750 50 / 50 Laboratory Tests Past 24 Hrs 04/20/18 04/21/18 04/21/18 05:35 05:25 05:25 WBC 12.1 H RBC 3.60 L Hgb 11.1 L Hct 34.6 L MCV 96.1 MCH 30.8 MCHC 32.1 RDW 13.1 RDW Differential 46.5 H Plt Count 214 MPV 10.0 Immature Gran % (Auto) 1.600 H Neut % (Auto) 73.1 H Lymph % (Auto) 18.0 L [place] % (Auto) 6.4 Eos % (Auto) 0.7 Baso % (Auto) 0.2 Absolute Neuts (auto) 8.9 H Absolute Lymphs (auto) 2.18 Total Counted Not Reportable Sodium 140 Potassium 3.5 Chloride 98 Carbon Dioxide 35.0 H Anion Gap 7 BUN 12 Creatinine 0.51 L Estim Creat Clear Calc 106.74 Est GFR (MDRD) Af Amer 162 Est GFR (MDRD) Non-Af 134 BUN/Creatinine Ratio 23.5 H Glucose 94 Hemoglobin A1c 5.8 Calcium 8.0 L POC Glucose 04/20/18 11:53 POC Glucose 160 H Medical Necessity - Tobacco Use Smoking Status: Former smoker Assessment/Plan All Active Problems (Last Reviewed 12/13/17 @ 07:47 by Vanessa Zamora) Acute on chronic respiratory failure with hypoxia and hypercapnia (Acute) Multifocal possible HCAP (Acute) Elevated troponin (Acute) NSTEMI (non-ST elevated myocardial infarction) (Acute) SVT (supraventricular tachycardia) (Acute) History of cholecystectomy (Resolved) History of appendectomy (Resolved) History of dilatation and curettage (Resolved) History of left oophorectomy (Resolved) History of section (Resolved) RECOMMENDATIONS: 1. Continue bronchodilators, antibiotics. Wean steroids over the next 12- 14 days 2. Wean oxygen as tolerated. Walking oximetry prior to discharge 3. Increase activity as tolerated 4. Rate control per cardiology 5. Okay to discharge from a pulmonary perspective following walking oximetry 6. Follow-up in pulmonary office 2 weeks after discharge from [facility]. IMPRESSIONS: 1. Acute on chronic combined respiratory failure secondary to Haemophilus influenza pneumonia/rhinovirus Patient tolerating nasal cannula oxygen. Okay to wean oxygen to keep saturations in the lower 90s. Patient is reporting cough, but would not recommend cough drops at this time as they are likely not to be effective and patient needs to pulmonary toileting. Will continue with bronchodilators and antibiotics. Prednisone will be weaned today and should continue to be weaned over the next 8-12 days. Continue with aggressive pulmonary toileting with IS, Acapella and out of bed as tolerated. Walking oximetry prior to discharge. Okay to discharge from a pulmonary perspective with follow-up 2 weeks after discharge from [facility] with nurse practitioner. 2. Non-ST elevation PA/SVT RESOLVED > Unclear if this is secondary to hypoxemia versus a malignant rhythm with baseline coronary obstruction. Cardiology is currently following. No indication for further troponin measurement. Cardiac catheterization did not require any intervention. Patient being treated with medical management 3. Severe sepsis secondary to Haemophilus influenza pneumonia RESOLVED > patient with reported fever, tachycardia and hypoxemia on presentation. This was present on presentation. Patient's blood pressure is much improved compared to previous. Patient continues to have episodes of tachycardia associated with coughing, but cardiology is following. Rate control defer to cardiology. No contraindication from a pulmonary/critical care perspective. 4. Metabolic encephalopathy RESOLVED > She was significant CO2 retention on presentation. Patient is on supplemental oxygen at baseline. This appears to be at baseline. Patient is no longer on fentanyl. 5. Bipolar disorder/history of diverticulitis/mitral valve prolapse/chronic pain syndrome/GERD/hypothyroidism Complicates care, management, recovery and prognosis. Likely okay to continue with baseline medications. Code Visit Inpatient E&M: [id number] [facility] Hosp L2
--- NOTE | 2018-04-21 08:39 | PN.CARD_ITS ---
Subjectve: Patient seen and evaluated and appears to be stable Objective: Vital Signs Temp Pulse Resp BP Pulse Ox 98.0 F 91 18 102/51 L 96 04/21/18 04:56 04/21/18 07:00 04/21/18 04:56 04/21/18 04:56 04/21/18 04:56 Oxygen Flow Rate (L/min) 4 Oxygen Delivery Method Nasal Cannula Weight: 132 lb 7.965 oz Body Mass Index (BMI) 23.3 Intake and Output for Last 24 Hours 04/19/18 04/20/18 04/21/18 23:59 23:59 23:59 Intake Total 1546 / 1546 750 / 750 50 / 50 Output Total 950 / 950 Balance 596 / 596 750 / 750 50 / 50 General: Awake, Alert, Oriented x 3 HEENT: PERRL, EOMI, Sclera Non Icteric Neck: Supple, Good ROM, No Lymph Node Enlargement Lungs: Clear to auscultation Cardiovascular: Regular Rhythm, Normal S1, Normal S2, No Murmurs, No Rubs, No Gallops Vascular: No Carotid Bruits, Normal Femoral Pulses, Normal Radial Pulses, Normal Dorsalis Pedal Pulse, Normal Posterior Tibial Pulses Abdomen: Bowel Sounds Present, Soft, Non Tender, No HSM, No Organomegaly Extremities: No Cyanosis, No Clubbing, No edema Neurological: No Focal Motor or Sensory Deficit 04/20/18 05:35: Hemoglobin A1c 5.8 04/21/18 05:25: WBC 12.1 H, RBC 3.60 L, Hgb 11.1 L, Hct 34.6 L, MCV 96.1, MCH 30.8, MCHC 32.1, RDW 13.1, RDW Differential 46.5 H, Plt Count 214, MPV 10.0, Immature Gran % (Auto) 1.600 H, Neut % (Auto) 73.1 H, Lymph % (Auto) 18.0 L, [place] % (Auto) 6.4, Eos % (Auto) 0.7, Baso % (Auto) 0.2, Absolute Neuts (auto) 8.9 H, Total Counted Not Reportable 04/21/18 05:25: Sodium 140, Potassium 3.5, Chloride 98, Carbon Dioxide 35.0 H, Anion Gap 7, BUN 12, Creatinine 0.51 L, Est GFR (MDRD) Af Amer 162, Est GFR ( MDRD) Non-Af 134, BUN/Creatinine Ratio 23.5 H, Glucose 94, Calcium 8.0 L Rhythm: EKG: ECHO: Stress Test: Cardiac Cath: PCI: CT Surgery: Holter monitor: EPS: PPM: CXR: Chest CT Scan: Medical Necessity - Tobacco Use Smoking Status: Former smoker Assessment/Plan 1. Non-ST elevation myocardial infarction The patient presents with respiratory distress and is noted to have EKG changes and a non-ST elevation myocardial infarction. * She appears to be doing better at this time with her ejection fraction noted to be normal by echocardiographic evaluation. * Recommendation at this time will be to treat the underlying sepsis and this appears to be under good control. * Aspirin * Will continue on anticoagulation at this time. * The cardiac catheterization demonstrated the following: Normal left main coronary artery. Left anterior descending artery with mild disease. Codominant left circumflex artery with mid circumflex 50% stenosis and mid to distal circumflex artery 50-70% stenosis. Codominant right coronary artery with no high-grade stenosis. Preserved left ventricular systolic function. Based on the above angiographic findings I would recommend aggressive medical therapy. It does not appear that the coronary lesions were enough to cause her to go into the respiratory failure. Smoking cessation has been emphasized. * High intensity statin * 2. Supraventricular tachycardia * Patient is having runs of supraventricular tachycardia. These appear to have abated and has not had any since last night. * Will continue oral beta-doretha * * Thank you for allowing me to participate in the care of your patient. Please don't hesitate to call if any issues arise
[2018-04-21] MEDS: Famotidine 20 MG Tablet PO (09:28)
[2018-04-21] MEDS: Metoprolol Tartrate 25 MG Tablet PO (09:28)
[2018-04-21] MEDS: Cefdinir 300 MG Capsule PO (09:28)
[2018-04-21] MEDS: Amiodarone 200 MG Tablet PO (09:28)
[2018-04-21] MEDS: Aspirin 81 MG TAB.CHEW PO (09:28)
--- NOTE | 2018-04-21 09:38 | VDUE_ITS ---
Reason For Study: LUE swelling Left Proximal Left jugular vein is spontaneous, widely patent, phasic, with no intraluminal echogenicity noted. Left subclavian vein is spontaneous, widely patent, phasic, with no intraluminal echogenicity noted. Left Arm Left axillary vein is spontaneous, patent, phasic, competent, compressible and demonstrates augmentation. Left brachial vein is compressible. Cephalic vein is dilated and non-compressible from antecubital space to axillary level. Left basilic vein is compressible. Left Lower Arm Left radial vein is compressible. Left ulnar vein is compressible. < Interpretation Summary Deep veins of the left upper extremity are patent and compressible segmentally. There is no evidence of deep vein thrombosis. Acute superficial thrombophlebitis is noted in the left cephalic vein from the left antecubital space to the axillary level. The left basilic vein is patent and compressible. Ordering Physician: Brock Aguayo Referring Physician: Sofy Richter Performed By: Christen Campos RVT ??? Reason For Study: LUE swelling < Interpretation Summary Ordering Physician: Brock Aguayo Referring Physician: Sofy Richter Performed By: Christen Campos RVT
--- NOTE | 2018-04-21 11:07 | PCM.TXEXTCAR ---
- Diet 04/17/18 09:49 Diet: Cardiac/Low Cholesterol Is pt able to select menu?: No - Routine Orders/Code Status Suppository Type: Dulcolax 10mg Suppository Frequency: Daily PRN O2 Frequency: Continuous Keep PO Greater than or Equal to (%): 90 Routine Lab Work: CBC - 3 days, BMP - 3 days Code Status: Full Code - Therapies Physical Therapy: Eval and Treat Occupational Therapy: Eval and Treat - Problem/Diagnosis (1) NSTEMI (non-ST elevated myocardial infarction) Status: Acute Current Visit: Yes (2) Multifocal possible HCAP Status: Acute Current Visit: Yes (3) Acute on chronic respiratory failure with hypoxia and hypercapnia Status: Acute Current Visit: Yes (4) SVT (supraventricular tachycardia) Status: Acute Current Visit: Yes (5) Superficial venous thrombosis of arm Status: Acute Current Visit: Yes (6) Prediabetes Status: Chronic Current Visit: Yes (7) GERD (gastroesophageal reflux disease) Status: Chronic Current Visit: No (8) COPD (chronic obstructive pulmonary disease) Status: Chronic Current Visit: No (9) Bipolar disorder Status: Chronic Current Visit: No (10) Hypothyroidism Status: Chronic Current Visit: No - Allergies/Procedures Done in Hospital Allergies/Adverse Reactions: Allergies amoxicillin Allergy (Severe, Verified 10/26/17 07:16) Shortness of breath AND HIVES azithromycin Allergy (Severe, Verified 10/26/17 07:17) Shortness of breath AND HIVES clindamycin Allergy (Severe, Verified 10/26/17 07:20) Shortness of breath AND HIVES doxycycline Allergy (Severe, Verified 10/26/17 07:20) Shortness of breath AND HIVES erythromycin lactobionate [From Erythrocin] Allergy (Severe, Verified 10/26/17 07:20) Shortness of breath AND HIVES Penicillins Allergy (Severe, Verified 10/26/17 07:20) Shortness of breath AND HIVES Sulfa (Sulfonamide Antibiotics) Allergy (Severe, Verified 10/26/17 07:20) Shortness of breath AND HIVES sulfamethoxazole [From Bactrim] Allergy (Severe, Verified 10/26/17 07:20) Shortness of breath AND HIVES trimethoprim [From Bactrim] Allergy (Severe, Verified 10/26/17 07:20) Shortness of breath AND HIVES tramadol Allergy (Verified 10/23/17 16:51) Unknown codeine [From Tylenol-Codeine #3] Adverse Reaction (Verified 10/23/17 16:51) Nausea/Vom/Diarrhea terbutaline [From Brethine] Adverse Reaction (Verified 10/23/17 16:51) Other ANITHISTAMINES Allergy (Uncoded 10/23/17 16:51) Unknown Procedures: 2-D Echocardiogram, Cardiac catheterization - Type of Care/Length of Stay Estimated LOS: Convalescent Care Less Than 30 days Type of Care Needed: Skilled Rehab Potential: Fair Prognosis: Fair - Additional Orders/Day of Discharge Day of Discharge: 04/21/18 - Dietary and Speech Recommendations Dietitian Recommendations/Changes: Rec cardiac/low cholesterol when ok for PO intake. - Follow Up Care Primary Care Physician: Sofy Richter DO [Primary Care Provider] - Please follow up with your Primary Care Physician in: 2 weeks Please Follow Up With: Yamil Merino MD When: 2 weeks Please Follow Up With: Amadou Vann MD When: 2 weeks
--- NOTE | 2018-04-21 14:56 | PCM.DC.SUM ---
<Brock Aguayo - Last Filed: 04/21/18 14:56> Discharge Date and Diagnosis Date of Admission: 04/15/18 Date of Discharge: 04/21/18 - Primary Discharge Diagnosis Non-ST segment elevation myocardial infarction Multifocal HCAP rhinovirus and Haemophilus influenza with severe sepsis on presentation Acute on chronic hypoxic hypercapnic respiratory failure secondary to above Supraventricular tachycardia Prediabetes Debility Tobacco abuse Bipolar GERD Mitral valve prolapse - Secondary Discharge Diagnosis Chronic Problems (Last Reviewed 12/13/17 @ 07:47 by Vanessa Zamora) Prediabetes (Chronic) Tobacco dependency (Chronic) Hypersomnia (Chronic) Urinary incontinence (Chronic) Back pain (Chronic) Neck pain (Chronic) GERD (gastroesophageal reflux disease) (Chronic) Temporomandibular joint (TMJ) pain (Chronic) COPD (chronic obstructive pulmonary disease) (Chronic) Mitral valve prolapse (Chronic) Bipolar disorder (Chronic) Hypokalemia (Chronic) Hypoglycemia (Chronic) Hypothyroidism (Chronic) History of diverticulitis (Chronic) Hospital Course and Treatment Imaging Results: RAD/Chest 1 View (Portable) IMPRESSION: Airspace opacity in the lower lobes, left greater than right. This is likely infectious in etiology. RAD/Chest 1 View (Portable) IMPRESSION: Endotracheal tube and feeding tube placement. Bilateral infiltrates or edema. Echo: Interpretation Summary No evidence for diastolic dysfunction. Normal LV size. The estimated ejection fraction is 50 %. Abnormal right ventricular diastolic function There are regional wall motion abnormalities. Mild tricuspid valve insufficiency. RAD/Chest 1 View (Portable) IMPRESSION: The support tubes are in good position. Since prior study, there has been improved aeration of both lungs with residual reticular nodular infiltrates worse on the left side. Heart cath conclusions: Moderate coronary artery disease involving the mid circumflex artery and distal circumflex artery with preserved LV ejection fraction Consultations: [facility]-cardiology [facility]-pulmonology Operations: None Procedures: 2-D Echocardiogram, Cardiac catheterization, Intubation Summary of Care Provided: Physical exam on day of discharge: General: Resting comfortably NAD Psych: A/Ox3 normal affect HEENT: PEARRLA AT NC Neck: Supple NT CV: RRR no m/t/r/g/h Resp: Faint diffuse wheezing, diminished throughout, bilateral faint crackles. Abd: [id number] Soft NT no guarding or rigidity Ext: DP2+= no edema Skin: W/D normal turgor Lymph/Heme: No active bleeding or adenopathy Neuro: CN2-12 intact Hospital course: The patient is a 53 year old F with a history of nicotine abuse, COPD, bipolar, GERD, who presented to the emergency room with increased shortness of breath, confusion, decreased level of consciousness. She had recently been discharged from [facility] after being treated for pneumonia. 2 was found to have bilateral pneumonia, mildly elevated troponin, mild EKG changes, and was found to have a run of SVT in the emergency room. SVT was treated with IV metoprolol. She was admitted to the, intubated, placed on a ventilator on a dipper Van and fentanyl drip. She met severe sepsis criteria with fever, tachycardia, hypoxia, tachypnea, and lactic acidosis with bilateral lower lobe infiltrates. She was placed on broad-spectrum antibiotics and critical care/pulmonology was consulted. She was also placed on Solu-Medrol and aerosol therapy. An echocardiogram was obtained and demonstrated EF of 50%, regional wall abnormalities, abnormal RV diastolic dysfunction. On April 16 she was extubated successfully. On April 18 she underwent a cardiac catheterization. She had moderate CAD no intervention was indicated, is advised that she have aggressive medical therapy only. She was transferred to the PCU and remained stable. She remained significantly debilitated. Her cultures demonstrated rhinovirus and Haemophilus influenza. Her antibiotics were changed to oral Cefdinir. She will complete 10 days of this. She will continue atorvastatin, aspirin, amiodarone, metoprolol for her coronary artery disease. She will complete a prednisone taper. She will need to follow-up with cardiology and pulmonology as an outpatient. She is currently still requiring oxygen at 4 L nasal cannula. She qualified for [facility]iary placement and was agreeable. Prior to discharge she developed pain and induration over her left proximal arm, and ultrasound was performed which showed superficial venous thrombosis of the cephalic vein. We recommend warm compresses and elevation until this resolves. Also of note her hemoglobin A1c was checked with her cardiac workup, she has an A1c of 5.8 at this time demonstrating prediabetes. Recommend a diabetic diet and for her to have her A1c rechecked in 6 weeks. If it remains abnormal at that time she should initiate diabetic medications given her underlying CAD and recent NSTEMI. She was transitioned to [facility]iary in stable condition. This patient was seen by Brock Aguayo PA-C under the supervision of Doctor Deandra. [] Home Medications: Medications to take at Discharge Ranitidine [Zantac] 150 mg PO DAILY 02/27/16 levothyroxine 125 mcg tablet 125 mcg PO DAILY 11/08/17 Albuterol Inhaler [Ventolin Hfa] 1 - 2 puff INHALATION Q4H PRN PRN 04/15/18 Fluoxetine [Prozac] 20 mg PO .COMPLEX 04/15/18 Lamotrigine [Lamotrigine Odt] 200 mg PO BID 04/15/18 Acetaminophen [Tylenol Tablet] 650 mg PO Q4H PRN PRN tablet 04/21/18 Albuterol Aerosols [Ventolin Aerosols] 2.5 mg INHALATION Q2H PRN PRN vial.neb. 04/21/18 Amiodarone HCl [Cordarone] 200 mg PO DAILY tablet 04/21/18 Aspirin [Aspirin, Baby] 81 mg PO DAILY tab.chew 04/21/18 Atorvastatin Calcium [Lipitor] 40 mg PO QHS tablet 04/21/18 Cefdinir [Omnicef [equiv]] 300 mg PO Q12 #7 capsule 04/21/18 Diazepam [Valium] 5 mg PO DAILY PRN PRN #3 tab 04/21/18 Famotidine [Pepcid] 20 mg PO BID tablet 04/21/18 Ipratropium/Albuterol Sulfate [Duoneb] 3 ml INHALATION Q4H.RT ampul.neb 04/21/18 Metoprolol Tartrate [Lopressor (beta manuel)] 25 mg PO BID tablet 04/21/18 Nicotine [Nicoderm] 14 mg TRANSDERM. DAILY patch 04/21/18 Polyethylene Glycol 3350 [Miralax] 17 gm PO BID packet 04/21/18 Prednisone 10 mg PO DAILY #15 tablet 04/21/18 Senna/Docusate Sodium [Senokot-S] 2 tablet PO BID tablet 04/21/18 Following Prescrptions Were Given to Patient: Cefdinir [Omnicef [equiv]] 300 mg PO Q12 #7 capsule Diazepam [Valium] 5 mg PO DAILY PRN PRN #3 tab PRN Reason: Anxiety Prednisone 10 mg PO DAILY #15 tablet Primary Care Physician: Sofy Richter DO [Primary Care Provider] - Please follow up with your Primary Care Physician in: 2 weeks Please Follow Up With: Yamil Merino MD When: 2 weeks Please Follow Up With: Amadou Vann MD When: 2 weeks Medical Necessity - Tobacco Use Smoking Status: Former smoker Meaningful Use Info Meaningful Use Diagnoses (Choose all that apply): AMI - AMI Aspirin given w/in 24hrs of arrival?: Yes ASA at discharge?: Yes Statins at discharge?: Yes John/ARB at discharge?: No Reason John/ARB not ordered:: Hypotension Beta Manuel at discharge?: Yes Done w/ Acute CT measure.: Yes <Elena Liriano - Last Filed: 04/21/18 16:33> Discharge Date and Diagnosis - Secondary Discharge Diagnosis Chronic Problems (Last Reviewed 12/13/17 @ 07:47 by Vanessa Zamora) Prediabetes (Chronic) Tobacco dependency (Chronic) Hypersomnia (Chronic) Urinary incontinence (Chronic) Back pain (Chronic) Neck pain (Chronic) GERD (gastroesophageal reflux disease) (Chronic) Temporomandibular joint (TMJ) pain (Chronic) COPD (chronic obstructive pulmonary disease) (Chronic) Mitral valve prolapse (Chronic) Bipolar disorder (Chronic) Hypokalemia (Chronic) Hypoglycemia (Chronic) Hypothyroidism (Chronic) History of diverticulitis (Chronic) Hospital Course and Treatment Summary of Care Provided: The patient is a 53 year old F [] Discharge Diet: Low fat/ Low Cholesterol, 2000 mg Sodium Diet Minutes spent on discharge:: 35 Patient Condition:: Stable Meaningful Use Info Meaningful Use Diagnoses (Choose all that apply): None applicable Code Visit Inpatient E&M: 52107 Disch Hosp
--- NOTE | 2018-04-21 15:08 | DS.PCM_ITS ---
<Brock Aguayo - Last Filed: 04/21/18 14:56> Discharge Date and Diagnosis Date of Admission: 04/15/18 Date of Discharge: 04/21/18 - Primary Discharge Diagnosis Non-ST segment elevation myocardial infarction Multifocal HCAP rhinovirus and Haemophilus influenza with severe sepsis on presentation Acute on chronic hypoxic hypercapnic respiratory failure secondary to above Supraventricular tachycardia Prediabetes Debility Tobacco abuse Bipolar GERD Mitral valve prolapse - Secondary Discharge Diagnosis Chronic Problems (Last Reviewed 12/13/17 @ 07:47 by Vanessa Zamora) Prediabetes (Chronic) Tobacco dependency (Chronic) Hypersomnia (Chronic) Urinary incontinence (Chronic) Back pain (Chronic) Neck pain (Chronic) GERD (gastroesophageal reflux disease) (Chronic) Temporomandibular joint (TMJ) pain (Chronic) COPD (chronic obstructive pulmonary disease) (Chronic) Mitral valve prolapse (Chronic) Bipolar disorder (Chronic) Hypokalemia (Chronic) Hypoglycemia (Chronic) Hypothyroidism (Chronic) History of diverticulitis (Chronic) Hospital Course and Treatment Imaging Results: RAD/Chest 1 View (Portable) IMPRESSION: Airspace opacity in the lower lobes, left greater than right. This is likely infectious in etiology. RAD/Chest 1 View (Portable) IMPRESSION: Endotracheal tube and feeding tube placement. Bilateral infiltrates or edema. Echo: Interpretation Summary No evidence for diastolic dysfunction. Normal LV size. The estimated ejection fraction is 50 %. Abnormal right ventricular diastolic function There are regional wall motion abnormalities. Mild tricuspid valve insufficiency. RAD/Chest 1 View (Portable) IMPRESSION: The support tubes are in good position. Since prior study, there has been improved aeration of both lungs with residual reticular nodular infiltrates worse on the left side. Heart cath conclusions: Moderate coronary artery disease involving the mid circumflex artery and distal circumflex artery with preserved LV ejection fraction Consultations: [facility]-cardiology [facility]-pulmonology Operations: None Procedures: 2-D Echocardiogram, Cardiac catheterization, Intubation Summary of Care Provided: Physical exam on day of discharge: General: Resting comfortably NAD Psych: A/Ox3 normal affect HEENT: PEARRLA AT NC Neck: Supple NT CV: RRR no m/t/r/g/h Resp: Faint diffuse wheezing, diminished throughout, bilateral faint crackles. Abd: [id number] Soft NT no guarding or rigidity Ext: DP2+= no edema Skin: W/D normal turgor Lymph/Heme: No active bleeding or adenopathy Neuro: CN2-12 intact Hospital course: The patient is a 53 year old F with a history of nicotine abuse, COPD, bipolar, GERD, who presented to the emergency room with increased shortness of breath, confusion, decreased level of consciousness. She had recently been discharged from [facility] after being treated for pneumonia. 2 was found to have bilateral pneumonia, mildly elevated troponin, mild EKG changes, and was found to have a run of SVT in the emergency room. SVT was treated with IV metoprolol. She was admitted to the, intubated, placed on a ventilator on a dipper Van and fentanyl drip. She met severe sepsis criteria with fever, tachycardia, hypoxia, tachypnea, and lactic acidosis with bilateral lower lobe infiltrates. She was placed on broad-spectrum antibiotics and critical care/ pulmonology was consulted. She was also placed on Solu-Medrol and aerosol therapy. An echocardiogram was obtained and demonstrated EF of 50%, regional wall abnormalities, abnormal RV diastolic dysfunction. On April 16 she was extubated successfully. On April 18 she underwent a cardiac catheterization. She had moderate CAD no intervention was indicated, is advised that she have aggressive medical therapy only. She was transferred to the PCU and remained stable. She remained significantly debilitated. Her cultures demonstrated rhinovirus and Haemophilus influenza. Her antibiotics were changed to oral Cefdinir. She will complete 10 days of this. She will continue atorvastatin, aspirin, amiodarone, metoprolol for her coronary artery disease. She will complete a prednisone taper. She will need to follow-up with cardiology and pulmonology as an outpatient. She is currently still requiring oxygen at 4 L nasal cannula. She qualified for usp placement and was agreeable. Prior to discharge she developed pain and induration over her left proximal arm , and ultrasound was performed which showed superficial venous thrombosis of the cephalic vein. We recommend warm compresses and elevation until this resolves. Also of note her hemoglobin A1c was checked with her cardiac workup, she has an A1c of 5.8 at this time demonstrating prediabetes. Recommend a diabetic diet and for her to have her A1c rechecked in 6 weeks. If it remains abnormal at that time she should initiate diabetic medications given her underlying CAD and recent NSTEMI. She was transitioned to [facility]p in stable condition. This patient was seen by Brock Aguayo PA-C under the supervision of Doctor Deandra. [] Home Medications: Medications to take at Discharge Ranitidine [Zantac] 150 mg PO DAILY 02/27/16 levothyroxine 125 mcg tablet 125 mcg PO DAILY 11/08/17 Albuterol Inhaler [Ventolin Hfa] 1 - 2 puff INHALATION Q4H PRN PRN 04/15/18 Fluoxetine [Prozac] 20 mg PO .COMPLEX 04/15/18 Lamotrigine [Lamotrigine Odt] 200 mg PO BID 04/15/18 Acetaminophen [Tylenol Tablet] 650 mg PO Q4H PRN PRN tablet 04/21/18 Albuterol Aerosols [Ventolin Aerosols] 2.5 mg INHALATION Q2H PRN PRN vial.neb. 04/21/18 Amiodarone HCl [Cordarone] 200 mg PO DAILY tablet 04/21/18 Aspirin [Aspirin, Baby] 81 mg PO DAILY tab.chew 04/21/18 Atorvastatin Calcium [Lipitor] 40 mg PO QHS tablet 04/21/18 Cefdinir [Omnicef [equiv]] 300 mg PO Q12 #7 capsule 04/21/18 Diazepam [Valium] 5 mg PO DAILY PRN PRN #3 tab 04/21/18 Famotidine [Pepcid] 20 mg PO BID tablet 04/21/18 Ipratropium/Albuterol Sulfate [Duoneb] 3 ml INHALATION Q4H.RT ampul.neb Metoprolol Tartrate [Lopressor (beta manuel)] 25 mg PO BID tablet 04/21/18 Nicotine [Nicoderm] 14 mg TRANSDERM. DAILY patch 04/21/18 Polyethylene Glycol 3350 [Miralax] 17 gm PO BID packet 04/21/18 Prednisone 10 mg PO DAILY #15 tablet 04/21/18 Senna/Docusate Sodium [Senokot-S] 2 tablet PO BID tablet 04/21/18 Following Prescrptions Were Given to Patient: Cefdinir [Omnicef [equiv]] 300 mg PO Q12 #7 capsule Diazepam [Valium] 5 mg PO DAILY PRN PRN #3 tab PRN Reason: Anxiety Prednisone 10 mg PO DAILY #15 tablet Primary Care Physician: Sofy Richter DO [Primary Care Provider] - Please follow up with your Primary Care Physician in: 2 weeks Please Follow Up With: Yamil Merino MD When: 2 weeks Please Follow Up With: Amadou Vann MD When: 2 weeks Medical Necessity - Tobacco Use Smoking Status: Former smoker Meaningful Use Info Meaningful Use Diagnoses (Choose all that apply): AMI - AMI Aspirin given w/in 24hrs of arrival?: Yes ASA at discharge?: Yes Statins at discharge?: Yes John/ARB at discharge?: No Reason John/ARB not ordered:: Hypotension Beta Manuel at discharge?: Yes Done w/ Acute [place] measure.: Yes <Elena Liriano - Last Filed: 04/21/18 16:33> Discharge Date and Diagnosis - Secondary Discharge Diagnosis Chronic Problems (Last Reviewed 12/13/17 @ 07:47 by Vanessa Zamora) Prediabetes (Chronic) Tobacco dependency (Chronic) Hypersomnia (Chronic) Urinary incontinence (Chronic) Back pain (Chronic) Neck pain (Chronic) GERD (gastroesophageal reflux disease) (Chronic) Temporomandibular joint (TMJ) pain (Chronic) COPD (chronic obstructive pulmonary disease) (Chronic) Mitral valve prolapse (Chronic) Bipolar disorder (Chronic) Hypokalemia (Chronic) Hypoglycemia (Chronic) Hypothyroidism (Chronic) History of diverticulitis (Chronic) Hospital Course and Treatment Summary of Care Provided: The patient is a 53 year old F [] Discharge Diet: Low fat/ Low Cholesterol, 2000 mg Sodium Diet Minutes spent on discharge:: 35 Patient Condition:: Stable Meaningful Use Info Meaningful Use Diagnoses (Choose all that apply): None applicable Code Visit Inpatient E&M: 60654 Disch Hosp
[2018-04-23 09:41] LABS: Pathologist Review Reviewed
== END 2018-04-21 14:20 | disposition skilled nursing facility (03) | DRG 121 ==
LOC: ED 17:42 → ICU 18:48 → PCU 04-19 06:42
PROVIDERS: Internal Medicine Cardiovascular Disease; Internal Medicine Critical Care Medicine; Physician Assistant; Student in an Organized Health Care Education/Training Program; Admitting Provider Internal Medicine; Emergency Provider Emergency Medicine; Family Provider Family Medicine; PCP Family Medicine; Visit Provider Internal Medicine
DX: I21.4 Non-ST elevation (NSTEMI) myocardial infarction (principal); J14 Pneumonia due to Hemophilus influenzae; R65.20 Severe sepsis without septic shock; I34.1 Nonrheumatic mitral (valve) prolapse; J96.21 Acute and chronic respiratory failure with hypoxia; J96.22 Acute and chronic respiratory failure with hypercapnia; I47.1 Supraventricular tachycardia; J44.0 Chronic obstructive pulmonary disease with (acute) lower respiratory infection; I82.612 Acute embolism and thrombosis of superficial veins of left upper extremity; A41.9 Sepsis, unspecified organism; E87.6 Hypokalemia; Z99.81 Dependence on supplemental oxygen; K21.9 Gastro-esophageal reflux disease without esophagitis; F31.9 Bipolar disorder, unspecified; R32 Unspecified urinary incontinence; B97.89 Other viral agents as the cause of diseases classified elsewhere; R73.03 Prediabetes; R53.81 Other malaise; E03.9 Hypothyroidism, unspecified; Z87.891 Personal history of nicotine dependence; I25.10 Atherosclerotic heart disease of native coronary artery without angina pectoris; G93.41 Metabolic encephalopathy
CPT/HCPCS: 31500; 31720; 36415; 36600; 51702; 71045; 80048; 80061; 81001; 81025; 82803; 82962; 83036; 83605; 83735; 84100; 84484; 85025; 85027; 87040; 87070; 87077; 87086; 87205; 87449; 87633; 87641; 93005; 93306; 93458; 93971; 94002; 94003; 94640; 94660; 94667; 94668; 95831; 97116; 97162; 97165; 97530; 97535; 97802; 99152; 99153; 99251; 99285; J7030; J7040; Q9967; A4216; C1769; C1894; G0463; J0153

== ENCOUNTER 2018-05-09 11:11 | Emergency (ER) | payer MEDICAID, SELFPAY ==
[2018-05-09 11:11] VITALS: BP 94/57; PULSE 80; RESP 16; TEMP 36.6; O2SAT 97; BMI 23.1
--- NOTE | 2018-05-09 11:25 | RAD_ITS ---
STUDY: X-RAY CHEST REASON FOR EXAM: Female, 53 years old. Cough and shortness of breath. TECHNIQUE: PA and lateral views of the chest. COMPARISON: Comparison is made with prior study dated April 16, 2018. FINDINGS: Since prior study, the endotracheal tube and orogastric tube has been removed. The lungs are clear and expanded. There is no demonstrated pleural abnormality. Normal size heart. Normal mediastinum and ashli. Normal visualized pulmonary arteries. Normal visualized aortic arch and descending thoracic aorta. Normal visualized thoracic spine. Normal visualized ribs, clavicles, and shoulders. The patient is status post cholecystectomy. RAD/Chest PA and Lateral IMPRESSION: Normal x-ray examination of the chest. Electronically Signed: Crow Gibson MD at 12:51 EDT Tel [phone], Service support ,
--- NOTE | 2018-05-09 11:28 | ED.DCSUM_ITS ---
- ER Visit Summary Date of Service: 05/09/18 Chief Complaint: Cough History of Present Illness: The patient is a 53 F with a history of COPD. Patient was admitted in October for pneumonia and respiratory failure. Today she noted cough with green colored sputum and wanted to make sure she did not have pneumonia again. She denies fever. She is supposed to be seen by the nurse practitioner in the pulmonary office today. She thought her point was at 1030. When she arrived she told her appointment we had actually been at 1015 and she was late so they would not see her. Physical Examination: Vital signs grossly unremarkable. Pulse ox is 97% on room air. Patient sitting upright in bed. She is alert and talkative. Head neck examination grossly unremarkable. Heart is regular rate and rhythm. Lung sounds are grossly clear. There is slightly diminished at the bases. Abdomen is soft nontender. Lower external examination was no calf tenderness or edema. Test Results: The chest x-ray is unremarkable with no infiltrate. Emergency Department Course and Treatment: Test results were discussed with the patient. She will continue to monitor her symptoms. If she becomes short of breath or develops fever, she is to come in immediately for repeat evaluation. She will monitor her sputum color and output. Treatment Plan: [] Disposition: Discharge Impression: Cough with history of COPD This note was generated with Workbooks dictation software. It may contain incorrect words, spelling, and punctuation that were not noted in review of the chart prior to signing ED Disposition - Plan for ED Patient: Chief Complaint: Cough Referrals: Sofy Richter DO [Primary Care Provider] -
--- NOTE | 2018-05-09 13:03 | ED.DEP ---
ED Disposition - Plan for ED Patient: Disposition: Home or Assisted Living Chief Complaint: Cough Instructions: ED Upper Resp Infec No Abx Tx Referrals: Sofy Richter DO [Primary Care Provider] - 1 Week
[2018-05-09 13:21] VITALS: BP 86/49; PULSE 75; RESP 16; O2SAT 95
--- NOTE | 2018-05-09 13:23 | ED.RN ---
DR. KAY AWARE OF BP, STATES PT IS OKAY TO D/C. REVIEWED D/C INSTRUCTIONS, FOLLOW UP CARE, AND S/S THAT WOULD WARRANT A RETURN TO THE ED WITH PT. PT VERBALIZED AN UNDERSTANDING AND DENIES FURTHER QUESTIONS FOR THIS RN. PT SKIN P/W/D, RESP EVEN AND UNLABORED, PT A&O X 3, NO DISTRESS NOTED. PT AMBULATED OUT OF ED, GAIT STEADY.
--- NOTE | 2018-05-10 10:54 | CM.ED ---
ED CALLBACK: Follow-up call placed to patient with no answer. Voicemail left with return contact information.
== END 2018-05-09 13:25 | disposition home or self-care (01) ==
PROVIDERS: Emergency Provider Emergency Medicine; Family Provider Family Medicine; PCP Family Medicine
DX: R05 Cough (principal); J44.9 Chronic obstructive pulmonary disease, unspecified; K21.9 Gastro-esophageal reflux disease without esophagitis; E78.00 Pure hypercholesterolemia, unspecified; Z87.891 Personal history of nicotine dependence
CPT/HCPCS: 71046; 99282

== ENCOUNTER → 2018-05-14 16:38 | Outpatient (CLI) | payer MEDICAID, SELFPAY ==
[2018-05-14 20:44] LABS: Color, Urine Yellow (Yellow); Glucose, Dipstick Normal (Normal); Ketone-Dipstick Negative (Negative); Leukocyte Esterase-Dipstick 500 /ul (Negative); Nitrite-Dipstick Positive (Negative); Occult Blood-Urine 150 /ul (Negative); Protein-Dipstick 30 mg/dl (Negative); Urine Bilirubin Dipstick Negative (Negative); Urine Clarity Cloudy (Clear); Urine Urobilinogen Normal (Normal)
== END ==
PROVIDERS: Family Provider Family Medicine; PCP Family Medicine; Referring Provider Family Medicine; Visit Provider Family Medicine
DX: R30.0 Dysuria (principal)
CPT/HCPCS: 81002; 87086; 87088; 87186

== ENCOUNTER 2018-05-27 13:40 | Emergency (ER) | payer MEDICAID, SELFPAY ==
[2018-05-27 13:41] VITALS: BP 89/49; PULSE 75; RESP 18; TEMP 36.4; O2SAT 95; BMI 23.6
[2018-05-27 14:40] LABS: Bacteria 0 SEEN /hpf (None Seen); Mucous, Urine 0 SEEN /hpf (<or=2+); Red Blood Cells-Urine 0 SEEN /hpf (0-5)
[2018-05-27 14:46] LABS: Color, Urine Yellow (Yellow); Glucose, Dipstick Normal (Normal); Ketone-Dipstick Negative (Negative); Leukocyte Esterase-Dipstick 500 /ul (Negative); Nitrite-Dipstick Negative (Negative); Occult Blood-Urine Negative /ul (Negative); Protein-Dipstick Negative (Negative); Specific Gravity, Urine 1.015 (1.002-1.030); Urine Bilirubin Dipstick Negative (Negative); Urine Clarity Sl. Cloudy (Clear); Urine Urobilinogen Normal (Normal)
[2018-05-27 14:49] LABS: Absolute Lymphocyte Count 2.54 X10^3/ul (0.83-4.51); Absolute Neutrophil Count 4.5 X10^3/uL (2.0-7.7); Basophil# 0.03 X10^3/uL; Basophil% 0.4 % (0-1); Eosinophil# 0.07 X10^3/uL; Eosinophils% 0.9 % (0-5); Hematocrit 39.5 % (37-47); Lymphocyte # 2.54 X10^3/ul (4.0); Mean Corp Hgb Conc 32.9 g/gl (32-36); Mean Corpuscular Hgb 31.4 pg (27.0-32.0); Mean Corpuscular Volume 95.4 fL (81-99); Mean Platelet Vol. 10.8 fl (6.2-12.0); Monocyte# 0.35 X10^3/uL; Monocyte% 4.7 % (0-10); Neutrophil # 4.48 X10^3/uL (2.7-7.7); Platelet Count 234 K/mm3 (150-450); RBC Distribution Width SD 45.5 fl (35.1-43.9); Red Blood Count 4.14 M/mm3 (4.2-5.4); White Blood Count 7.5 K/mm3 (4.4-11.0)
[2018-05-27 14:51] LABS: Differential Indicated SCAN CRITERIA MET; POSITIVE COUNT NO; POSITIVE DIFFERENTIAL NO; POSITIVE MORPHOLOGY YES
[2018-05-27 14:58] LABS: Anion Gap 4 (5-15); BUN 19 mg/dL (7-18); BUN/Creat Ratio 23.1 RATIO (10-20); Calcium,Total 8.8 mg/dL (8.5-10.1); Chloride 106 mmol/L (98-107); Creatinine, Serum 0.82 mg/dL (0.55-1.02); EST Glomerular Filtration Rate 78 mL/min (>60); Est Glom Filt Rate - Afr Amer 94 mL/min (>60); Estimated Creatinine Clearance 66.39 ml/min; Glucose 70 mg/dL (74-106); Potassium 4.3 mmol/L (3.5-5.1); Sodium Level 141 mmol/L (136-145)
[2018-05-27 15:03] LABS: White Blood Cells 5-10 SEEN /hpf (0-5)
[2018-05-27 15:04] LABS: Squamous Epithelial Cells - UA 0-5 SEEN /hpf (5-10); Transitional Epithelial - Ur 0-5 SEEN /hpf (0-5)
[2018-05-27 15:40] VITALS: BP 98/68; PULSE 54; RESP 18; O2SAT 96
--- NOTE | 2018-05-27 16:13 | ED.VISSUMM ---
- ER Visit Summary Date of Service: 05/27/18 Chief Complaint: Cough History of Present Illness: The patient is a [address] Richter and Dr. Merino. She is a cough began 3 days ago. Is productive green sputum without blood. She has had chills, but no fever. She denies any chest pain or difficulty breathing. She reports she has been nauseated, but has not vomited. She has a headache is 3 out of 10 severity. She has a history of similar headaches. Physical Examination: Vitals: Stable. Afebrile. General: Well-nourished and well-developed. Head: Normocephalic atraumatic. Neck: Supple, no lymphadenopathy. No JVD. Nontender. Cardiovascular: Regular rate and rhythm. No murmurs. Respiratory: No respiratory distress. Clear to auscultation bilaterally. Abdominal: Soft, nontender, nondistended, normal bowel sounds. No guarding, rebound, or peritoneal signs. Back: Nontender. Extremities: Nontender, no edema. Skin: Normal color, no rash. Neurologic: Alert and oriented ?3. Cranial nerves II through XII are intact. Normal strength and sensation. Psych: Normal affect. Test Results: Chest x-ray shows chronic changes unchanged from May 09 in my opinion. Radiologist has read this as increased markings in the basilar lungs bilaterally. CBC is normal. Chem-7 is more for BUN of 19 and glucose of 70. UA shows leukocytes of 510 white blood cells without bacteria. Emergency Department Course and Treatment: Patient's urine was sent for culture. I did discuss with her the findings on the chest x-ray. She would like to be placed on an antibiotic. She has multiple allergies and is given a dose of Levaquin here. Treatment Plan: Patient will be discharged on 4 more days of Levaquin. Instructed to follow-up with Dr. Richter in 3-5 days not improving. Return to the emergency department for any worsening symptoms. Disposition: To home in improved and stable condition. Impression: 1. URI. 2. Tobacco abuse. This note was generated with [employer] software. It may contain incorrect words, spelling, and punctuation that were not noted in review of the chart prior to signing ED Disposition - Plan for ED Patient: Disposition: Home or Assisted Living Chief Complaint: Cough Instructions: ED COPD Flare Prescriptions: Levofloxacin [Levaquin] 750 mg PO DAILY #4 tablet Referrals: Sofy Richter DO [Primary Care Provider] - 3-5 Days if not improving
[2018-05-27] MEDS: levoFLOXacin 750 MG Tablet PO (16:35)
[2018-05-27 16:38] VITALS: BP 90/54; PULSE 77; RESP 18; O2SAT 97
--- NOTE | 2018-05-28 10:06 | CM.ED ---
ED CALLBACK: Follow-up call placed to patient with no answer. Voicemail left with return contact information.
== END 2018-05-27 16:39 | disposition home or self-care (01) ==
PROVIDERS: Emergency Provider Emergency Medicine; Family Provider Family Medicine; PCP Family Medicine
DX: J06.9 Acute upper respiratory infection, unspecified (principal); Z72.0 Tobacco use; J44.9 Chronic obstructive pulmonary disease, unspecified; K21.9 Gastro-esophageal reflux disease without esophagitis; E78.00 Pure hypercholesterolemia, unspecified; E03.9 Hypothyroidism, unspecified
CPT/HCPCS: 71046; 80048; 81001; 85025; 87086; 87088; 99285; J7040; A4216

== ENCOUNTER → 2018-06-05 11:48 | Outpatient (CLI) | payer MEDICAID, SELFPAY ==
[2018-06-05 12:17] VITALS: PULSE 74; PULSE 76; PULSE 89; PULSE 90; PULSE 91; O2SAT 93; O2SAT 94; O2SAT 95
--- NOTE | 2018-06-06 08:29 | PCM.PSN.6M ---
PSN 6 Minute Walk Test - 6 Minute Walk Test 6 Minute Walk Test: 6 Minute Walk Test PSN:6-Minute Walk Test Start: 06/05/18 12:16 Freq: Status: Active Protocol: [id number].6MINW Document 06/05/18 12:17 MICHAEL (Rec: 06/05/18 12:21 MICHAEL [id number]) 6 Minute Walk Test Date Performed 06/05/18 Time Performed 12:00 Height 5 ft 3 in Weight: 130 lb Weight in Pounds 130.[address]: Sarah Pat Assistive device used: None Pre-test Oxygen Delivery Method Room Air Pulse Ox (%) 94 Pulse Rate (60-100 beats/min) 74 Dyspnea Larry Scale (0-10) 0 Exertion Larry Scale (6-20) 6 1st minute Oxygen Delivery Method Room Air Pulse Ox (%) 95 Pulse Rate (60-100 beats/min) 90 2nd minute Oxygen Delivery Method Room Air Pulse Ox (%) 94 Pulse Rate (60-100 beats/min) 91 3rd minute Oxygen Delivery Method Room Air Pulse Ox (%) 93 Pulse Rate (60-100 beats/min) 89 4th minute Oxygen Delivery Method Room Air Pulse Ox (%) 94 Pulse Rate (60-100 beats/min) 89 5th minute Oxygen Delivery Method Room Air Pulse Ox (%) 93 Pulse Rate (60-100 beats/min) 89 6th minute Oxygen Delivery Method Room Air Pulse Ox (%) 93 Pulse Rate (60-100 beats/min) 89 Post-test Oxygen Delivery Method Room Air Pulse Ox (%) 95 Pulse Rate (60-100 beats/min) 76 Full Laps Walked 19 Partial Lap, Number of Tiles Walked 4 Total Distance Walked (ft) 1125 - Interpretation Interpretation: The patient ambulated 1125 feet over the course of 6 minutes beginning on room air without assistive devices or breaks. Pretesting oxygen saturation was noted to be 94% on room air. With ambulation, the evette oxygen saturation was 93%. There was no significant exertional oxygen desaturation. - Recommendations Recommendations: There is no indication for the use of supplemental oxygen at this time.
== END ==
PROVIDERS: Family Provider Family Medicine; PCP Family Medicine; Visit Provider Nurse Practitioner Acute Care
DX: J44.9 Chronic obstructive pulmonary disease, unspecified (principal)
CPT/HCPCS: 94618

== ENCOUNTER 2018-06-21 20:49 | Observation (INO) | payer MEDICAID, SELFPAY ==
[2018-06-21 20:53] VITALS: BP 104/44; PULSE 69; RESP 14; TEMP 36.4; O2SAT 98; BMI 23.4
[2018-06-21 21:30] VITALS: BP 95/41; PULSE 58; RESP 14; O2SAT 98
--- NOTE | 2018-06-21 21:37 | EKG12_ITS ---
Test Reason : CHEST PAIN Blood Pressure : / mmHG Vent. Rate : 056 BPM Atrial Rate : 056 BPM P-R Int : 108 ms QRS Dur : 072 ms QT Int : 458 ms P-R-T Axes : 040 050 065 degrees QTc Int : 441 ms Sinus bradycardia with short AK Otherwise normal ECG Confirmed by JIMMY PALMER, ONEL ([id number]), electronic news gathering editor TOD CORADO ([id number]) on 06/24/2018 3:24:09 PM Referred By: GERMAIN Confirmed By:ONEL MARQUEZ MD
--- NOTE | 2018-06-21 21:38 | ED.VISSUMM ---
- ER Visit Summary Date of Service: 06/21/18 Chief Complaint: Chest pain History of Present Illness: The patient is a 53 F presenting with chest pain. She states this started yesterday. Pain has been intermittent. Pain is in the left chest and goes to her left arm and neck. She states today the pain began radiating to her back. She denies shortness of breath. She has had diaphoresis associated with this. She does not recall anything that makes this better or worse. She has a history of hypercholesterolemia and previous [place]. She is a previous smoker. Physical Examination: Vitals are stable. Patient is afebrile. Alert no acute distress. HEENT exam is unremarkable. Neck is supple. Lungs are clear and equal bilaterally. Heart is regular rate and rhythm. Abdomen is soft nontender nondistended. Extremities are unremarkable. Skin is warm and dry. No focal neurologic deficit. Remainder of exam is unremarkable. Emergency Department Course and Treatment: Patient was given aspirin on arrival. EKG is sinus rate of 56 with no acute ischemic changes. Chest x-ray shows no acute process. CBC normal except for hemoglobin 11.3. Chemistries unremarkable other than BUN 34. Troponin is negative. D-dimer negative. She is resting comfortably on reevaluation. Will discuss with the hospitalist for observation Disposition: Observation Impression: Chest pain This note was generated with [employer] dictation software. It may contain incorrect words, spelling, and punctuation that were not noted in review of the chart prior to signing ED Disposition - Plan for ED Patient: Chief Complaint: Chest Pain Referrals: Sofy Richter DO [Primary Care Provider] -
--- NOTE | 2018-06-21 21:40 | RAD_ITS ---
STUDY: X-RAY CHEST REASON FOR EXAM: Female, 53 years old. Chest pain TECHNIQUE: AP portable COMPARISON: May 27, 2018 FINDINGS: There is mild prominence of the interstitial markings in the lower lobes. No focal infiltrates or pulmonary edema.. There is no demonstrated pleural abnormality. Normal size heart. Normal mediastinum and ashli. Normal visualized pulmonary arteries. Normal visualized aortic arch and descending thoracic aorta. Dorsal spine demonstrates mild scoliosis and degenerative change. Normal visualized ribs, clavicles, and shoulders. There is no demonstrated abnormality of the visualized soft tissue structures of the upper abdomen. No significant change since prior exam RAD/Chest 1 View (Portable) IMPRESSION: No acute cardiopulmonary pathology Electronically Signed: Matthias Alberts MD at 22:10 EDT , Service support ,
--- NOTE | 2018-06-21 21:41 | ED.DCSUM_ITS ---
- ER Visit Summary Date of Service: 06/21/18 Chief Complaint: Chest pain History of Present Illness: The patient is a 53 F presenting with chest pain. She states this started yesterday. Pain has been intermittent. Pain is in the left chest and goes to her left arm and neck. She states today the pain began radiating to her back. She denies shortness of breath. She has had diaphoresis associated with this. She does not recall anything that makes this better or worse. She has a history of hypercholesterolemia and previous [place]. She is a previous smoker. Physical Examination: Vitals are stable. Patient is afebrile. Alert no acute distress. HEENT exam is unremarkable. Neck is supple. Lungs are clear and equal bilaterally. Heart is regular rate and rhythm. Abdomen is soft nontender nondistended. Extremities are unremarkable. Skin is warm and dry. No focal neurologic deficit. Remainder of exam is unremarkable. Emergency Department Course and Treatment: Patient was given aspirin on arrival. EKG is sinus rate of 56 with no acute ischemic changes. Chest x-ray shows no acute process. CBC normal except for hemoglobin 11.3. Chemistries unremarkable other than BUN 34. Troponin is negative. D-dimer negative. She is resting comfortably on reevaluation. Will discuss with the hospitalist for observation Disposition: Observation Impression: Chest pain This note was generated with [employer] dictation software. It may contain incorrect words, spelling, and punctuation that were not noted in review of the chart prior to signing ED Disposition - Plan for ED Patient: Chief Complaint: Chest Pain Referrals: Sofy Richter DO [Primary Care Provider] -
[2018-06-21] MEDS: 0.9% Normal Saline 1,000 ML 999 ML IV (21:44)
[2018-06-21 21:46] LABS: Absolute Lymphocyte Count 2.79 X10^3/ul (0.83-4.51); Absolute Neutrophil Count 2.7 X10^3/uL (2.0-7.7); Basophil# 0.03 X10^3/uL; Basophil% 0.5 % (0-1); Eosinophil# 0.16 X10^3/uL; Eosinophils% 2.6 % (0-5); Hematocrit 33.6 % (37-47); Hemoglobin 11.3 g/dl (12.0-15.0); Lymphocyte # 2.79 X10^3/ul (4.0); Lymphocyte % 45.2 % (19-41); Mean Corp Hgb Conc 33.6 g/gl (32-36); Mean Corpuscular Hgb 31.8 pg (27.0-32.0); Mean Corpuscular Volume 94.6 fL (81-99); Mean Platelet Vol. 11.3 fl (6.2-12.0); Monocyte# 0.52 X10^3/uL; Monocyte% 8.4 % (0-10); Neutrophil # 2.66 X10^3/uL (2.7-7.7); Neutrophil % 43.1 % (47-70); POSITIVE COUNT NO; POSITIVE DIFFERENTIAL NO; POSITIVE MORPHOLOGY NO; Platelet Count 166 K/mm3 (150-450); RBC Distribution Width CV 12.5 % (11.6-14.6); RBC Distribution Width SD 43.1 fl (35.1-43.9); Red Blood Count 3.55 M/mm3 (4.2-5.4); White Blood Count 6.2 K/mm3 (4.4-11.0)
[2018-06-21] MEDS: Aspirin 81 MG TAB.CHEW 324 MG PO (21:46)
[2018-06-21 22:01] LABS: D-Dimer Quantitative (DVT/PE) 0.36 FEU/ug/m (0.27-0.49)
[2018-06-21 22:03] LABS: Anion Gap 9 (5-15); BUN 34 mg/dL (7-18); BUN/Creat Ratio 56.4 RATIO (10-20); Calcium,Total 8.3 mg/dL (8.5-10.1); Chloride 109 mmol/L (98-107); EST Glomerular Filtration Rate 111 mL/min (>60); Est Glom Filt Rate - Afr Amer 134 mL/min (>60); Estimated Creatinine Clearance 90.73 ml/min; Glucose 83 mg/dL (74-106); Potassium 3.8 mmol/L (3.5-5.1); Sodium Level 144 mmol/L (136-145)
--- NOTE | 2018-06-21 23:08 | PCM.HP.STD ---
Problem List (1) Chest pain Status: Acute History of Present Illness Date of Admission: 06/21/18 Chief Complaint: Chest pain The patient is a 53 year old F with a significant history of non-ST elevation myocardial infarction following sepsis due to pneumonia ; moderate disease in the circumflex; mitral valve prolapse; previous smoker who presented with excruciating constant and persistent chest pain for 1 day. She rates her pain as 8 out of 10. She described the pain as an ache, pressure and a squeeze. Her pain occurred at rest. She denied any aggravating or alleviating factors. Her pain was located is left shoulder and circumferential at the bra line and across to her back and in between her scapula. Her pain radiated to her neck and her left shoulder. Associated with her symptoms is diaphoresis and severe heart burn that did not resolve with ranitidine. The patient stated that typically her heart burn resolves with ranitidine. She had a cardiac cath in April of this year and it showed Codominant left circumflex artery with mid circumflex 50% stenosis and mid to distal circumflex artery 50-70% stenosis. Past Medical History Past Medical History (Chronic Problems): Chronic Problems (Last Reviewed 05/24/18 @ 10:43 by Yamil Merino MD) Acute diastolic (congestive) heart failure (Chronic 04/18/18) Atherosclerosis of coronary artery of [place] heart without angina pectoris (Chronic) Moderate coronary artery disease involving the mid circumflex artery and distal circumflex artery with preserved left ventricular ejection fraction. 04/18/18 Paroxysmal supraventricular tachycardia (Chronic) Nonrheumatic mitral valve prolapse (Chronic) Acute on chronic respiratory failure with hypoxia and hypercapnia (Chronic) COPD (chronic obstructive pulmonary disease) (Chronic) Medical History: Medical History (Last Reviewed 06/22/18 @ 06:43 by Iglesia Arias MD) Acute diastolic (congestive) heart failure (Chronic) Onset Date: 04/18/18 I50.31 Atherosclerosis of coronary artery of [place] heart without angina pectoris (Chronic) I25.10 Moderate coronary artery disease involving the mid circumflex artery and distal circumflex artery with preserved left ventricular ejection fraction. 04/18/18 Paroxysmal supraventricular tachycardia (Chronic) I47.1 Nonrheumatic mitral valve prolapse (Chronic) I34.1 Acute on chronic respiratory failure with hypoxia and hypercapnia (Chronic) J96.21, J96.22 NSTEMI (non-ST elevated myocardial infarction) (Resolved) Onset Date: 04/16/18 I21.4 COPD (chronic obstructive pulmonary disease) (Chronic) J44.9 Bipolar disorder F31.9 Chronic back pain M54.9, G89.29 Diverticula of colon K57.30 GERD (gastroesophageal reflux disease) K21.9 Hypersomnia, unspecified G47.10 Hypothyroidism E03.9 TMJ (temporomandibular joint syndrome) M26.609 Hypoglycemia (Resolved) E16.2 Hypokalemia (Resolved) E87.6 Urinary incontinence (Inactive) R32 Allergies amoxicillin Allergy (Severe, Verified 05/27/18 13:44) Shortness of breath AND HIVES azithromycin Allergy (Severe, Verified 05/27/18 13:44) Shortness of breath AND HIVES clindamycin Allergy (Severe, Verified 05/27/18 13:44) Shortness of breath AND HIVES doxycycline Allergy (Severe, Verified 05/27/18 13:44) Shortness of breath AND HIVES erythromycin lactobionate [From Erythrocin] Allergy (Severe, Verified 05/27/18 13:44) Shortness of breath AND HIVES Penicillins Allergy (Severe, Verified 05/27/18 13:44) Shortness of breath AND HIVES Sulfa (Sulfonamide Antibiotics) Allergy (Severe, Verified 05/27/18 13:44) Shortness of breath AND HIVES sulfamethoxazole [From Bactrim] Allergy (Severe, Verified 05/27/18 13:44) Shortness of breath AND HIVES trimethoprim [From Bactrim] Allergy (Severe, Verified 05/27/18 13:44) Shortness of breath AND HIVES tramadol Allergy (Verified 05/27/18 13:44) Unknown codeine [From Tylenol-Codeine #3] Adverse Reaction (Verified 05/27/18 13:44) Nausea/Vom/Diarrhea metoprolol Adverse Reaction (Verified 05/27/18 13:44) hypotension terbutaline [From Brethine] Adverse Reaction (Verified 05/27/18 13:44) Other ANITHISTAMINES Allergy (Uncoded 05/27/18 13:44) Unknown Home Medications: Ambulatory Orders Medication Instructions Recorded Ranitidine [Zantac] 150 mg PO DAILY 02/27/16 levothyroxine 125 mcg tablet 125 mcg PO DAILY 11/08/17 Albuterol Inhaler [Ventolin Hfa] 1 - 2 puff INHALATION Q4H PRN PRN 04/15/18 Fluoxetine [Prozac] 20 mg PO QHS 04/15/18 Lamotrigine [Lamotrigine Odt] 200 mg PO BID 04/15/18 Aspirin [Aspirin, Baby] 81 mg PO DAILY tab.chew 04/21/18 Nicotine [Nicoderm] 14 mg TRANSDERM. DAILY patch 04/21/18 rosuvastatin 40 mg tablet 40 mg PO QDAY 05/24/18 Atenolol [Tenormin (beta doretha)] 25 mg PO DAILY 05/27/18 Diazepam [Valium] 5 mg PO BID PRN PRN 06/22/18 Fluoxetine [Prozac] 40 mg PO DAILY 06/22/18 Fluticasone Propionate 2 spray INTRANASAL DAILY PRN 06/22/18 Surgical History: Surgical History (Last Reviewed 06/22/18 @ 06:43 by Iglesia Arias MD) History of appendectomy (Resolved) Z98.890, Z90.49 History of section (Resolved) Z98.891 History of cholecystectomy (Resolved) Z98.890, Z90.49 History of dilatation and curettage (Resolved) Z98.890 History of left heart catheterization Onset Date: 04/18/18 Z98.890 Moderate coronary artery disease involving the mid circumflex artery and distal circumflex artery with preserved left ventricular ejection fraction. History of left oophorectomy (Resolved) Z98.890, Z90.721 Surgical History: - - Emergency 1993 Left ovary follapian tube and ovary removed 1998 Throat biopsy: benign 1999 Hydrothermal ablation and D&C 2004 Emergency appendectomy 2008 Cholecystectomy lap 2002 Lives: With Family Smoking Status: Former smoker - *Family History Paternal Family History: Family History (Last Reviewed 06/22/18 @ 06:43 by Iglesia Arias MD) Mother Hypertension Pulmonary embolism Psychiatric care Father Lung cancer Grandmother Breast cancer Sister Asthma Seizures Psychiatric care Depression Son Depression Psychiatric care ADHD Daughter Depression Psychiatric care Bipolar 1 disorder History Items: Hypertension Review of Systems Constitutional: Denies: Chills, Fever, Weight Change HEENT: Denies: Head Aches, Sinus Congestion, Sinus Drainage Cardiovascular: Reports: Chest Pain Respiratory: Denies: Cough, Shortness of breath at rest, Sputum production Gastrointestinal: Denies: Abdominal Pain, Nausea, Vomiting Genitourinary: Denies: Dysuria Musculoskeletal: Denies: Joint Pain, Joint Tenderness Skin: Denies: Rash, Wounds Neurological: Denies: Numbness, Tingling, Focal weakness Psychiatric: Denies: Anxiety, Depression, Homicidal Ideations, Suicidal Ideations Hematologic/ Lymphatic: Denies: Easy Bruising, Easy Bleeding VTE Information - Inpt Only VTE Present on Admission: No VTE Mechan Device Prophylaxis: None VTE Pharm Prophylaxis ordered?: Yes Patient Problems: Active and Suspected Problems (Last Reviewed 05/24/18 @ 10:43 by Yamil Merino MD) Chest pain (Acute) - Physical Exam General: Alert, Oriented x3, Cooperative HEENT: Atraumatic, PERRLA, EOMI, Normocephalic Neck: Supple, No JVD, Negative Carotid Bruits Lungs: Clear to auscultation, Normal air movement Cardiovascular: Bradycardic, - - Tender below bilateral breasts and upper back. Abdomen: Bowel Sounds Present Extremities: No edema, Capillary Refill Less than 3 Seconds Skin: No rashes, No breakdown Musculoskeletal: No Tenderness to Palpation of Joints or Extremities Neurological: Cranial nerves II-XII grossly intact Psych/Mental Status: Normal Affect, Appropriate Vital Signs Temp Pulse Resp BP Pulse Ox 97.5 F L 58 L 14 95/41 L 98 06/21/18 20:53 06/21/18 21:30 06/21/18 21:30 06/21/18 21:30 06/21/18 21:30 Oxygen Delivery Method Room Air Weight: 60 kg Body Mass Index (BMI) 23.4 Laboratory Tests Past 24 Hrs 06/21/18 06/21/18 06/21/18 21:25 21:25 21:25 WBC 6.2 RBC 3.55 L Hgb 11.3 L Hct 33.6 L MCV 94.6 MCH 31.8 MCHC 33.6 RDW 12.5 RDW Differential 43.1 Plt Count 166 MPV 11.3 Immature Gran % (Auto) 0.200 Neut % (Auto) 43.1 L Lymph % (Auto) 45.2 H [place] % (Auto) 8.4 Eos % (Auto) 2.6 Baso % (Auto) 0.5 Absolute Neuts (auto) 2.7 Absolute Lymphs (auto) 2.79 Total Counted Not Reportable D-Dimer Quant (PE/DVT) 0.36 Sodium 144 Potassium 3.8 Chloride 109 H Carbon Dioxide 26.0 Anion Gap 9 BUN 34 H Creatinine 0.60 Estim Creat Clear Calc 90.73 Est GFR (MDRD) Af Amer 134 Est GFR (MDRD) Non-Af 111 BUN/Creatinine Ratio 56.4 H Glucose 83 Calcium 8.3 L Troponin I < 0.015 Assessment/Plan All Active Problems (Last Reviewed 05/24/18 @ 10:43 by Yamil Merino MD) Chest pain (Acute) NSTEMI (non-ST elevated myocardial infarction) (Resolved 04/16/18) Elevated troponin (Resolved) History of appendectomy (Resolved) History of section (Resolved) History of cholecystectomy (Resolved) History of dilatation and curettage (Resolved) History of left oophorectomy (Resolved) Hypoglycemia (Resolved) Hypokalemia (Resolved) Multifocal possible HCAP (Resolved) Superficial venous thrombosis of arm (Resolved) The patient is a 53 year old F with a significant history of non-ST elevation myocardial infarction following sepsis due to pneumonia ; moderate disease in the circumflex; mitral valve prolapse; previous smoker who presented with excruciating constant and persistent chest pain for 1 day. Chest pain Admit to a monitored bed on PCU CXR independently reviewed did not show any acute disease EKG independently reveiwed did not show any acute T-wave abnormalities Old records reviewed showed cardiac catheterization findings as stated in HPI Received aspirin 324 mg at the ED ASA 81 mg p.o. daily SL NTG 0.4 mg prn as needed for chest pain Lipitor 80 mg daily The patient had hypotension and was given IV normal saline bolus. Resume atenolol and blood pressure parameters are met. Serial cardiac enzymes Stat EKG as needed for chest pain Treadmill stress test with nuclear imaging in the AM if the cardiac enzymes are negative If stress test is unremarkable and patient continued to have chest pain consider musculoskeletal source of chest pain; or GERD. Tobacco abuse She used to smoke cigarettes. Although patient stated that she stopped using tobacco for about the past 3 months she reported that she is to allow cravings and was recently on a nicotine patch which she ran out of Nicoderm 14 mg ordered. Counseled . GERD Ranitidine held We will start patient on Protonix to see whether it can help his symptoms better. DVT prophylaxis Subcutaneous Lovenox. Code Visit OBSV E&M: [id number] Initial observation care L3
[2018-06-21 23:18] VITALS: BP 88/75; PULSE 54; RESP 19; O2SAT 97
[2018-06-22] VITALS (8 sets, daily range): BP systolic 97–102; BP diastolic 49–60; PULSE 53–77; RESP 16–18; TEMP 35.7–36.7; O2SAT 95–96; BMI 24.6
--- NOTE | 2018-06-22 00:40 | EKG12_ITS ---
Test Reason : CP ADMIT Blood Pressure : / mmHG Vent. Rate : 055 BPM Atrial Rate : 055 BPM P-R Int : 088 ms QRS Dur : 080 ms QT Int : 492 ms P-R-T Axes : 071 058 071 degrees QTc Int : 470 ms Sinus bradycardia with short ND Otherwise normal ECG When compared with ECG of 16-APR-2018 07:37, Vent. rate has decreased BY 38 BPM Confirmed by JIMMY PALMER, ONEL ([id number]), restaurant expeditor TOD CORADO ([id number]) on 06/26/2018 3:31:55 PM Referred By: DR CHURCHILL Confirmed By:ONEL MARQUEZ MD
[2018-06-22] MEDS: Pantoprazole Sodium 40 MG Tablet PO (01:53)
[2018-06-22 05:05] LABS: BUN 23 mg/dL (7-18); Creatinine, Serum 0.58 mg/dL (0.55-1.02); Estimated Creatinine Clearance 93.86 ml/min; Glucose 80 mg/dL (74-106)
[2018-06-22 05:06] LABS: Anion Gap 8 (5-15); BUN/Creat Ratio 39.6 RATIO (10-20); Chloride 112 mmol/L (98-107); EST Glomerular Filtration Rate 116 mL/min (>60); Est Glom Filt Rate - Afr Amer 140 mL/min (>60); Potassium 3.4 mmol/L (3.5-5.1); Sodium Level 147 mmol/L (136-145)
[2018-06-22 05:54] LABS: Absolute Lymphocyte Count 2.66 X10^3/ul (0.83-4.51); Absolute Neutrophil Count 2.2 X10^3/uL (2.0-7.7); Basophil# 0.02 X10^3/uL; Basophil% 0.4 % (0-1); Eosinophil# 0.16 X10^3/uL; Hematocrit 33.9 % (37-47); Hemoglobin 11.2 g/dl (12.0-15.0); Lymphocyte # 2.66 X10^3/ul (4.0); Lymphocyte % 49.6 % (19-41); Mean Corpuscular Volume 96.9 fL (81-99); Mean Platelet Vol. 11.8 fl (6.2-12.0); Monocyte# 0.35 X10^3/uL; Monocyte% 6.5 % (0-10); Neutrophil # 2.17 X10^3/uL (2.7-7.7); Neutrophil % 40.5 % (47-70); Partial Thromboplast Time 26.9 Seconds (24.1-36.2); Platelet Count 160 K/mm3 (150-450); RBC Distribution Width CV 12.1 % (11.6-14.6); RBC Distribution Width SD 41.7 fl (35.1-43.9); White Blood Count 5.4 K/mm3 (4.4-11.0)
[2018-06-22 05:55] LABS: Differential Indicated SCAN CRITERIA MET; POSITIVE COUNT NO; POSITIVE DIFFERENTIAL NO; POSITIVE MORPHOLOGY YES
[2018-06-22] MEDS: Aspirin E.C. 81 MG Tablet PO (06:02)
--- NOTE | 2018-06-22 12:32 | STRESSREP ---
Stress Test Report Pharmacologic myocardial perfusion stress test. 53-year-old lady with a history of chest pain. Stress protocol. Resting EKG demonstrates sinus rhythm with a rate of 75 bpm normal intervals and noted. 0.4 mg of regadenoson was infused per usual protocol followed by rapid intravenous saline flush injection. The maximum heart rate attained was 104 bpm which was 61% maximum predicted heart rate the maximum workload was 1 metabolic equivalent. At rest there were no ST or T-wave changes noted suggest abnormal flow reserve at peak infusion no ST or T-wave changes were noted suggest abnormal flow reserve. Resting blood pressure was 100/58 with a final blood pressure 108/58. The patient had previously been put on a treadmill and exercised 4 minutes attaining a maximum heart rate of 137 bpm which was 81% of maximum predicted heart rate and a workload of 6 metabolic equivalents. Patient got markedly short of breath and did not obtain 85% maximum predicted heart rate and therefore the test was terminated. Stress myocardial perfusion protocol: 12.0 mCi of technetium 99m sestamibi was injected at rest. 0.4 mg of regadenoson was infused per usual protocol peak infusion 35.8 mCi of technetium 99m sestamibi was injected stress images were obtained stress and rest images were reconstructed and compared in the short axis vertical long horizontal long axis. Gated images were also obtained pre- Perfusion SPECT analysis: Review of the stress images demonstrate normal uptake of tracer noted in all areas of the myocardium the resting images similarly demonstrate normal uptake of tracer noted in all areas of the myocardium. No reversibility is noted suggest ischemia and no infarct is noted. Gated SPECT analysis: The gated ejection fraction is noted to be 82%. Conclusion : Normal pharmacologic myocardial perfusion stress test. Good exercise capacity present.
--- NOTE | 2018-06-22 13:07 | PCM.DC ---
- Discharge Diagnoses Current Active Problems: Current Active and Chronic Problems (Last Reviewed 06/22/18 @ 06:43 by Iglesia Arias MD) Chest pain (Acute) You will use the following diet at home:: Cardiac Discharge Activity: Return to Normal Activity Call your doctor if you observe: Shortness of breath, Dizziness, Fainting spells, Chest pain Additional Instructions: May take ibuprofen 400mg every 4-6 hours for musculoskeletal pain. Allergies/Adverse Reactions: Allergies amoxicillin Allergy (Severe, Verified 05/27/18 13:44) Shortness of breath AND HIVES azithromycin Allergy (Severe, Verified 05/27/18 13:44) Shortness of breath AND HIVES clindamycin Allergy (Severe, Verified 05/27/18 13:44) Shortness of breath AND HIVES doxycycline Allergy (Severe, Verified 05/27/18 13:44) Shortness of breath AND HIVES erythromycin lactobionate [From Erythrocin] Allergy (Severe, Verified 05/27/18 13:44) Shortness of breath AND HIVES Penicillins Allergy (Severe, Verified 05/27/18 13:44) Shortness of breath AND HIVES Sulfa (Sulfonamide Antibiotics) Allergy (Severe, Verified 05/27/18 13:44) Shortness of breath AND HIVES sulfamethoxazole [From Bactrim] Allergy (Severe, Verified 05/27/18 13:44) Shortness of breath AND HIVES trimethoprim [From Bactrim] Allergy (Severe, Verified 05/27/18 13:44) Shortness of breath AND HIVES tramadol Allergy (Verified 05/27/18 13:44) Unknown codeine [From Tylenol-Codeine #3] Adverse Reaction (Verified 05/27/18 13:44) Nausea/Vom/Diarrhea metoprolol Adverse Reaction (Verified 05/27/18 13:44) hypotension terbutaline [From Brethine] Adverse Reaction (Verified 05/27/18 13:44) Other ANITHISTAMINES Allergy (Uncoded 05/27/18 13:44) Unknown Medications to take at Discharge Ranitidine [Zantac] 150 mg PO DAILY 02/27/16 levothyroxine 125 mcg tablet 125 mcg PO DAILY 11/08/17 Albuterol Inhaler [Ventolin Hfa] 1 - 2 puff INHALATION Q4H PRN PRN 04/15/18 Fluoxetine [Prozac] 20 mg PO QHS 04/15/18 Lamotrigine [Lamotrigine Odt] 200 mg PO BID 04/15/18 Aspirin [Aspirin, Baby] 81 mg PO DAILY tab.chew 04/21/18 Nicotine [Nicoderm] 14 mg TRANSDERM. DAILY patch 04/21/18 rosuvastatin 40 mg tablet 40 mg PO QDAY 05/24/18 Atenolol [Tenormin (beta doretha)] 25 mg PO DAILY 05/27/18 Diazepam [Valium] 5 mg PO BID PRN PRN 06/22/18 Fluoxetine [Prozac] 40 mg PO DAILY 06/22/18 Fluticasone Propionate 2 spray INTRANASAL DAILY PRN 06/22/18 Primary Care Physician: Sofy Richter DO [Primary Care Provider] - Please follow up with your Primary Care Physician in: 1 Week Test Results: Test results from this visit will be discussed in further detail at your follow-up appointment, if applicable. Please Follow Up With: Yamil Merino MD When: As scheduled Please Follow Up With: Jose Quispe DO When: As needed Proposed Discharge Date: 06/22/18
--- NOTE | 2018-06-22 13:11 | DCINST_ITS ---
- Discharge Diagnoses Current Active Problems: Current Active and Chronic Problems (Last Reviewed 06/22/18 @ 06:43 by Iglesia Arias MD) Chest pain (Acute) You will use the following diet at home:: Cardiac Discharge Activity: Return to Normal Activity Call your doctor if you observe: Shortness of breath, Dizziness, Fainting spells , Chest pain Additional Instructions: May take ibuprofen 400mg every 4-6 hours for musculoskeletal pain. Allergies/Adverse Reactions: Allergies amoxicillin Allergy (Severe, Verified 05/27/18 13:44) Shortness of breath AND HIVES azithromycin Allergy (Severe, Verified 05/27/18 13:44) Shortness of breath AND HIVES clindamycin Allergy (Severe, Verified 05/27/18 13:44) Shortness of breath AND HIVES doxycycline Allergy (Severe, Verified 05/27/18 13:44) Shortness of breath AND HIVES erythromycin lactobionate [From Erythrocin] Allergy (Severe, Verified 05/27/18 13:44) Shortness of breath AND HIVES Penicillins Allergy (Severe, Verified 05/27/18 13:44) Shortness of breath AND HIVES Sulfa (Sulfonamide Antibiotics) Allergy (Severe, Verified 05/27/18 13:44) Shortness of breath AND HIVES sulfamethoxazole [From Bactrim] Allergy (Severe, Verified 05/27/18 13:44) Shortness of breath AND HIVES trimethoprim [From Bactrim] Allergy (Severe, Verified 05/27/18 13:44) Shortness of breath AND HIVES tramadol Allergy (Verified 05/27/18 13:44) Unknown codeine [From Tylenol-Codeine #3] Adverse Reaction (Verified 05/27/18 13:44) Nausea/Vom/Diarrhea metoprolol Adverse Reaction (Verified 05/27/18 13:44) hypotension terbutaline [From Brethine] Adverse Reaction (Verified 05/27/18 13:44) Other ANITHISTAMINES Allergy (Uncoded 05/27/18 13:44) Unknown Medications to take at Discharge Ranitidine [Zantac] 150 mg PO DAILY 02/27/16 levothyroxine 125 mcg tablet 125 mcg PO DAILY 11/08/17 Albuterol Inhaler [Ventolin Hfa] 1 - 2 puff INHALATION Q4H PRN PRN 04/15/18 Fluoxetine [Prozac] 20 mg PO QHS 04/15/18 Lamotrigine [Lamotrigine Odt] 200 mg PO BID 04/15/18 Aspirin [Aspirin, Baby] 81 mg PO DAILY tab.chew 04/21/18 Nicotine [Nicoderm] 14 mg TRANSDERM. DAILY patch 04/21/18 rosuvastatin 40 mg tablet 40 mg PO QDAY 05/24/18 Atenolol [Tenormin (beta doretha)] 25 mg PO DAILY 05/27/18 Diazepam [Valium] 5 mg PO BID PRN PRN 06/22/18 Fluoxetine [Prozac] 40 mg PO DAILY 06/22/18 Fluticasone Propionate 2 spray INTRANASAL DAILY PRN 06/22/18 Primary Care Physician: Sofy Richter DO [Primary Care Provider] - Please follow up with your Primary Care Physician in: 1 Week Test Results: Test results from this visit will be discussed in further detail at your follow- up appointment, if applicable. Please Follow Up With: Yamil Merino MD When: As scheduled Please Follow Up With: Jose Quispe DO When: As needed Proposed Discharge Date: 06/22/18
--- NOTE | 2018-06-22 13:13 | PCM.DC.SUM ---
<Alpa Somers - Last Filed: 06/22/18 13:21> Discharge Date and Diagnosis Date of Admission: 06/21/18 Date of Discharge: 06/22/18 - Primary Discharge Diagnosis Active and Suspected Problems (Last Reviewed 06/22/18 @ 06:43 by Iglesia Arias MD) 1. Musculoskeletal chest pain 2. Mild hypokalemia - Secondary Discharge Diagnosis Chronic Problems (Last Reviewed 06/22/18 @ 06:43 by Iglesia Arias MD) Acute diastolic (congestive) heart failure (Chronic 04/18/18) Atherosclerosis of coronary artery of [place] heart without angina pectoris (Chronic) Moderate coronary artery disease involving the mid circumflex artery and distal circumflex artery with preserved left ventricular ejection fraction. 04/18/18 Paroxysmal supraventricular tachycardia (Chronic) Nonrheumatic mitral valve prolapse (Chronic) Acute on chronic respiratory failure with hypoxia and hypercapnia (Chronic) COPD (chronic obstructive pulmonary disease) (Chronic) Hospital Course and Treatment Imaging Results: Diagnostic Data Chest X-Ray 06/21/18 21:40 IMPRESSION: No acute cardiopulmonary pathology Electronically Signed: Matthias Alberts MD at 22:10 EDT , Service support , Operations: None Procedures: Stress test Summary of Care Provided: The patient is a 53 year old F admitted 06/21/2018 due to chest pain. She has a past medical history of non-STEMI, chronic diastolic CHF, CAD, paroxysmal supraventricular tachycardia, chronic respiratory failure with hypoxia and hypercapnia, COPD. Troponin negative. Patient underwent nuclear stress test which was negative for ischemia. Mild hypokalemia, replaced orally. Mild hypernatremia. Repeat BMP in 1 week. Suspect musculoskeletal pain. ACS ruled out. Patient complains of continued left shoulder pain, back pain. Recommended ibuprofen or Tylenol as needed for pain. Chest x-ray showed no acute cardiopulmonary process. Patient with mild hypotension. This appears to be her baseline. Blood pressure in office visit 05/24/2018 84/52. Blood pressure at discharge 99/60. Patient denies shortness of breath, dizziness, lightheadedness. Stable for discharge home. Follow-up with primary care physician in 1 week. Cardiology as scheduled. Pulmonary medicine as scheduled. General: Alert, Oriented x3, Cooperative HEENT: Atraumatic, PERRLA, EOMI, Normocephalic Neck: Supple, No JVD, Negative Carotid Bruits Lungs: Clear to auscultation, diminished Cardiovascular: Regular rate, regular rhythm, no murmur Abdomen: Bowel Sounds Present Extremities: No edema, Capillary Refill Less than 3 Seconds Skin: No rashes, No breakdown Musculoskeletal: No Tenderness to Palpation of Joints or Extremities Neurological: Cranial nerves II-XII grossly intact Psych/Mental Status: Normal Affect, Appropriate Patient seen exam prior to discharge. Physical assessment as noted above. Patient stable for discharge home with follow-up her conditions as noted above. This patient was seen by LALITHA Bangura under the supervision of Dr. Mcnair. Discharge Diet: Low fat/ Low Cholesterol Discharge Activity: Return to Normal Activity Call your doctor if you observe: Shortness of breath, Dizziness, Fainting spells, Chest pain Home Medications: Medications to take at Discharge Ranitidine [Zantac] 150 mg PO DAILY 02/27/16 levothyroxine 125 mcg tablet 125 mcg PO DAILY 11/08/17 Albuterol Inhaler [Ventolin Hfa] 1 - 2 puff INHALATION Q4H PRN PRN 04/15/18 Fluoxetine [Prozac] 20 mg PO QHS 04/15/18 Lamotrigine [Lamotrigine Odt] 200 mg PO BID 04/15/18 Aspirin [Aspirin, Baby] 81 mg PO DAILY tab.chew 04/21/18 Nicotine [Nicoderm] 14 mg TRANSDERM. DAILY patch 04/21/18 rosuvastatin 40 mg tablet 40 mg PO QDAY 05/24/18 Atenolol [Tenormin (beta doretha)] 25 mg PO DAILY 05/27/18 Diazepam [Valium] 5 mg PO BID PRN PRN 06/22/18 Fluoxetine [Prozac] 40 mg PO DAILY 06/22/18 Fluticasone Propionate 2 spray INTRANASAL DAILY PRN 06/22/18 Primary Care Physician: Sofy Richter DO [Primary Care Provider] - Please follow up with your Primary Care Physician in: 1 Week Please Follow Up With: Yamil Merino MD When: As scheduled Please Follow Up With: Jose Quispe DO When: As scheduled Disposition: Home Minutes spent on discharge:: 35 Patient Condition:: Stable Medical Necessity - Tobacco Use Smoking Status: Former smoker Meaningful Use Info Meaningful Use Diagnoses (Choose all that apply): None applicable <Roby Mcnair - Last Filed: 06/23/18 07:58> Discharge Date and Diagnosis - Secondary Discharge Diagnosis Chronic Problems (Last Reviewed 06/22/18 @ 06:43 by Iglesia Arias MD) Acute diastolic (congestive) heart failure (Chronic 04/18/18) Atherosclerosis of coronary artery of [place] heart without angina pectoris (Chronic) Moderate coronary artery disease involving the mid circumflex artery and distal circumflex artery with preserved left ventricular ejection fraction. 04/18/18 Paroxysmal supraventricular tachycardia (Chronic) Nonrheumatic mitral valve prolapse (Chronic) Acute on chronic respiratory failure with hypoxia and hypercapnia (Chronic) COPD (chronic obstructive pulmonary disease) (Chronic) Hospital Course and Treatment Summary of Care Provided: The patient is a 53 year old F [] Discharge Summary Summary: Patient admitted for what appeared to be atypical chest pain Reviewed independently of ENVIRONMENTAL SPECIALIST and case discussed as well Stress test was negative and patients symptoms which were most likely musculoskeletal have resolved Stable for discharge home
--- NOTE | 2018-06-22 13:20 | DS.PCM_ITS ---
<Alpa Somers - Last Filed: 06/22/18 13:21> Discharge Date and Diagnosis Date of Admission: 06/21/18 Date of Discharge: 06/22/18 - Primary Discharge Diagnosis Active and Suspected Problems (Last Reviewed 06/22/18 @ 06:43 by Iglesia Arias MD) 1. Musculoskeletal chest pain 2. Mild hypokalemia - Secondary Discharge Diagnosis Chronic Problems (Last Reviewed 06/22/18 @ 06:43 by Iglesia Arias MD) Acute diastolic (congestive) heart failure (Chronic 04/18/18) Atherosclerosis of coronary artery of [place] heart without angina pectoris ( Chronic) Moderate coronary artery disease involving the mid circumflex artery and distal circumflex artery with preserved left ventricular ejection fraction. 04/18 Paroxysmal supraventricular tachycardia (Chronic) Nonrheumatic mitral valve prolapse (Chronic) Acute on chronic respiratory failure with hypoxia and hypercapnia (Chronic) COPD (chronic obstructive pulmonary disease) (Chronic) Hospital Course and Treatment Imaging Results: Diagnostic Data Chest X-Ray 06/21/18 21:40 IMPRESSION: No acute cardiopulmonary pathology Electronically Signed: Matthias Alberts MD at 22:10 EDT , Service support , Operations: None Procedures: Stress test Summary of Care Provided: The patient is a 53 year old F admitted 06/21/2018 due to chest pain. She has a past medical history of non-STEMI, chronic diastolic CHF, CAD, paroxysmal supraventricular tachycardia, chronic respiratory failure with hypoxia and hypercapnia, COPD. Troponin negative. Patient underwent nuclear stress test which was negative for ischemia. Mild hypokalemia, replaced orally. Mild hypernatremia. Repeat BMP in 1 week. Suspect musculoskeletal pain. ACS ruled out. Patient complains of continued left shoulder pain, back pain. Recommended ibuprofen or Tylenol as needed for pain. Chest x-ray showed no acute cardiopulmonary process. Patient with mild hypotension. This appears to be her baseline. Blood pressure in office visit 05/24/2018 84/52. Blood pressure at discharge 99/60. Patient denies shortness of breath, dizziness, lightheadedness. Stable for discharge home. Follow-up with primary care physician in 1 week. Cardiology as scheduled. Pulmonary medicine as scheduled. General: Alert, Oriented x3, Cooperative HEENT: Atraumatic, PERRLA, EOMI, Normocephalic Neck: Supple, No JVD, Negative Carotid Bruits Lungs: Clear to auscultation, diminished Cardiovascular: Regular rate, regular rhythm, no murmur Abdomen: Bowel Sounds Present Extremities: No edema, Capillary Refill Less than 3 Seconds Skin: No rashes, No breakdown Musculoskeletal: No Tenderness to Palpation of Joints or Extremities Neurological: Cranial nerves II-XII grossly intact Psych/Mental Status: Normal Affect, Appropriate Patient seen exam prior to discharge. Physical assessment as noted above. Patient stable for discharge home with follow-up her conditions as noted above. This patient was seen by LALITHA Bangura under the supervision of Dr. Mcnair. Discharge Diet: Low fat/ Low Cholesterol Discharge Activity: Return to Normal Activity Call your doctor if you observe: Shortness of breath, Dizziness, Fainting spells , Chest pain Home Medications: Medications to take at Discharge Ranitidine [Zantac] 150 mg PO DAILY 02/27/16 levothyroxine 125 mcg tablet 125 mcg PO DAILY 11/08/17 Albuterol Inhaler [Ventolin Hfa] 1 - 2 puff INHALATION Q4H PRN PRN 04/15/18 Fluoxetine [Prozac] 20 mg PO QHS 04/15/18 Lamotrigine [Lamotrigine Odt] 200 mg PO BID 04/15/18 Aspirin [Aspirin, Baby] 81 mg PO DAILY tab.chew 04/21/18 Nicotine [Nicoderm] 14 mg TRANSDERM. DAILY patch 04/21/18 rosuvastatin 40 mg tablet 40 mg PO QDAY 05/24/18 Atenolol [Tenormin (beta doretha)] 25 mg PO DAILY 05/27/18 Diazepam [Valium] 5 mg PO BID PRN PRN 06/22/18 Fluoxetine [Prozac] 40 mg PO DAILY 06/22/18 Fluticasone Propionate 2 spray INTRANASAL DAILY PRN 06/22/18 Primary Care Physician: Sofy Richter DO [Primary Care Provider] - Please follow up with your Primary Care Physician in: 1 Week Please Follow Up With: Yamil Merino MD When: As scheduled Please Follow Up With: Jose Quispe DO When: As scheduled Disposition: Home Minutes spent on discharge:: 35 Patient Condition:: Stable Medical Necessity - Tobacco Use Smoking Status: Former smoker Meaningful Use Info Meaningful Use Diagnoses (Choose all that apply): None applicable <Roby Mcnair - Last Filed: 06/23/18 07:58> Discharge Date and Diagnosis - Secondary Discharge Diagnosis Chronic Problems (Last Reviewed 06/22/18 @ 06:43 by Iglesia Arias MD) Acute diastolic (congestive) heart failure (Chronic 04/18/18) Atherosclerosis of coronary artery of [place] heart without angina pectoris ( Chronic) Moderate coronary artery disease involving the mid circumflex artery and distal circumflex artery with preserved left ventricular ejection fraction. 04/18 Paroxysmal supraventricular tachycardia (Chronic) Nonrheumatic mitral valve prolapse (Chronic) Acute on chronic respiratory failure with hypoxia and hypercapnia (Chronic) COPD (chronic obstructive pulmonary disease) (Chronic) Hospital Course and Treatment Summary of Care Provided: The patient is a 53 year old F [] Discharge Summary Summary: Patient admitted for what appeared to be atypical chest pain Reviewed independently of FREIGHT TRAFFIC CONSULTANT and case discussed as well Stress test was negative and patients symptoms which were most likely musculoskeletal have resolved Stable for discharge home
[2018-06-22] MEDS: Ibuprofen 600 MG Tablet PO (13:54)
== END 2018-06-22 13:12 | disposition home or self-care (01) ==
LOC: ED 21:55 → PCU 06-22 00:02
PROVIDERS: Admitting Provider Hospitalist; Emergency Provider Emergency Medicine; Family Provider Family Medicine; PCP Family Medicine; Visit Provider Internal Medicine
DX: R07.89 Other chest pain (principal); I25.2 Old myocardial infarction; I11.0 Hypertensive heart disease with heart failure; I50.32 Chronic diastolic (congestive) heart failure; I25.10 Atherosclerotic heart disease of native coronary artery without angina pectoris; J44.9 Chronic obstructive pulmonary disease, unspecified; J96.12 Chronic respiratory failure with hypercapnia; J96.11 Chronic respiratory failure with hypoxia; K21.9 Gastro-esophageal reflux disease without esophagitis; F31.9 Bipolar disorder, unspecified; E03.9 Hypothyroidism, unspecified; E87.6 Hypokalemia; I47.1 Supraventricular tachycardia; Z87.891 Personal history of nicotine dependence; Z79.899 Other long term (current) drug therapy
CPT/HCPCS: 36415; 71045; 78452; 80048; 84484; 85025; 85379; 85610; 85730; 93005; 93017; 96360; 96361; 97162; 97165; 99218; 99283; 99406; A9500; J7030; J7040; A4216; G0378; J2785

== ENCOUNTER → 2018-07-03 12:51 | Outpatient (CLI) | payer MEDICAID, SELFPAY ==
--- NOTE | 2018-07-03 15:16 | PFTCOMP_ITS ---
COMPLETE PULMONARY FUNCTION TEST INTERPRETATION Brief HPI: Patient is a 53 year old female, currently under the care of Sarah Pat, who presents to [facility] for complete pulmonary function tests secondary to diagnosis of COPD. Respiratory therapist reports good effort and reproducible results. Interpretation: Forced expiration spirometry shows a moderate large airways obstructive ventilatory defect with an FEV1 of 69% predicted. There is a significant bronchodilator response in FEV1 by ATS criteria. Spirograms are of good quality and plateau slowly, indicating slowly emptying areas of the lungs. The respiratory flow volume loop shows decreased expiratory flow rates at all lung volumes consistent with airway obstruction. Lung volumes by body plethysmography show an elevated total lung capacity at 5.6 L, 118% predicted. FRC and RV are elevated out of proportion. Lung volume measurements are consistent with hyperinflation and air-trapping. Diffusion capacity by carbon monoxide is at the lower limit of normal at 67% predicted. The airway resistance is elevated. Compared to previous pulmonary function tests from 12/16/2013, there has been a significant worsening in FEV1 by 26%. Impression: Partially reversible moderate large airways obstructive ventilatory defect with a symmetric reduction in diffusing capacity, resulting in air trapping with hyperinflation and consistent with a COPD/asthma overlap syndrome
[2018-07-03 16:01] LABS: Anion Gap 9 (5-15); BUN 21 mg/dL (7-18); BUN/Creat Ratio 31.2 RATIO (10-20); Calcium,Total 8.8 mg/dL (8.5-10.1); Chloride 102 mmol/L (98-107); Creatinine, Serum 0.67 mg/dL (0.55-1.02); EST Glomerular Filtration Rate 98 mL/min (>60); Est Glom Filt Rate - Afr Amer 118 mL/min (>60); Glucose 78 mg/dL (74-106); Potassium 3.2 mmol/L (3.5-5.1); Sodium Level 141 mmol/L (136-145)
== END ==
PROVIDERS: Nurse Practitioner Family; Family Provider Family Medicine; PCP Family Medicine; Visit Provider Nurse Practitioner Acute Care
DX: J44.9 Chronic obstructive pulmonary disease, unspecified (principal); E87.0 Hyperosmolality and hypernatremia; E87.6 Hypokalemia
CPT/HCPCS: 36415; 80048; 94060; 94726; 94729

== ENCOUNTER → 2018-07-16 15:00 | Outpatient (CLI) | payer MEDICAID, SELFPAY | PROVIDERS: Family Provider Family Medicine; PCP Family Medicine; Visit Provider Nurse Practitioner Acute Care | DX: J44.9 Chronic obstructive pulmonary disease, unspecified (principal) | CPT/HCPCS: 94762 ==

== ENCOUNTER → 2018-08-08 09:57 | Outpatient (CLI) | payer MEDICAID, SELFPAY ==
--- NOTE | 2018-08-08 10:50 | PCM.CR.HP2 ---
CR - History & Physical - General Arrival date:: 08/08/18 Arrival time:: 10:30 Date of Referral:: 08/01/18 Date of CR Evaluation:: 08/08/18 Referring Physician: DR. ANNA HARRELL Primary Diagnosis: [place] (NSTEMI) - History of Present Cardiac Event Onset Date: Enter Onset Date of cardiac illnesses in Comment field below Acute Myocardial Infarction within 12 months:: Yes - NSTEMI Type of Symptoms:: SHORT OF BREATH, FELT COULDN'T GET MY BREATH. Interventions with present event:: [facility], stess test normal, heart cath, EKG, echocardiogram - Medications Home Medications: Ambulatory Orders Medication Instructions Recorded Ranitidine [Zantac] 150 mg PO DAILY 02/27/16 levothyroxine 125 mcg tablet 125 mcg PO DAILY 11/08/17 Albuterol Inhaler [Ventolin Hfa] 1 - 2 puff INHALATION Q4H PRN PRN 04/15/18 Fluoxetine [Prozac] 20 mg PO QHS 04/15/18 Lamotrigine [Lamotrigine Odt] 200 mg PO BID 04/15/18 Aspirin [Aspirin, Baby] 81 mg PO DAILY tab.chew 04/21/18 Nicotine [Nicoderm] 14 mg TRANSDERM. DAILY patch 04/21/18 rosuvastatin 40 mg tablet 40 mg PO QDAY 05/24/18 Atenolol [Tenormin (beta doretha)] 25 mg PO DAILY 05/27/18 Diazepam [Valium] 5 mg PO BID PRN PRN 06/22/18 Fluoxetine [Prozac] 40 mg PO DAILY 06/22/18 Fluticasone Propionate 2 spray INTRANASAL DAILY PRN 06/22/18 - Allergies Allergies/Adverse Reactions: Allergies amoxicillin Allergy (Severe, Verified 07/10/18 06:43) Shortness of breath AND HIVES azithromycin Allergy (Severe, Verified 07/10/18 06:43) Shortness of breath AND HIVES clindamycin Allergy (Severe, Verified 07/10/18 06:43) Shortness of breath AND HIVES doxycycline Allergy (Severe, Verified 07/10/18 06:43) Shortness of breath AND HIVES erythromycin lactobionate [From Erythrocin] Allergy (Severe, Verified 07/10/18 06:43) Shortness of breath AND HIVES Penicillins Allergy (Severe, Verified 07/10/18 06:43) Shortness of breath AND HIVES Sulfa (Sulfonamide Antibiotics) Allergy (Severe, Verified 07/10/18 06:43) Shortness of breath AND HIVES sulfamethoxazole [From Bactrim] Allergy (Severe, Verified 07/10/18 06:43) Shortness of breath AND HIVES trimethoprim [From Bactrim] Allergy (Severe, Verified 07/10/18 06:43) Shortness of breath AND HIVES tramadol Allergy (Verified 07/10/18 06:43) Unknown codeine [From Tylenol-Codeine #3] Adverse Reaction (Verified 07/10/18 06:43) Nausea/Vom/Diarrhea metoprolol Adverse Reaction (Verified 07/10/18 06:43) hypotension terbutaline [From Brethine] Adverse Reaction (Verified 07/10/18 06:43) Other ANITHISTAMINES Allergy (Uncoded 07/10/18 06:43) Unknown - Sleep Disorder Evaluation Hx of Sleep Apnea: No Do you snore loudly (louder than talking or can be heard through closed doors)?: Yes - nocturnal oxygen Do you often feel tired/ fatigued/ sleepy during daytime?: Yes Has anyone observed you stop breathing during sleep?: No History of Hypertension (for STOP score): Yes STOP Results: Positive Advanced Directives - Advanced Directives Power of Correction Officer Penitentiary: No Living Will: No Advance Directives Information Provided: Yes Advance Directives on File: No DNR Order?:: No - MOLST See MOLST form: No Past Medical History - Past Medical Illness Medical History: Past Medical History (Last Reviewed 07/10/18 @ 10:56 by LALITHA Neal) Acute diastolic (congestive) heart failure (Chronic) Onset Date: 04/18/18 I50.31 Atherosclerosis of coronary artery of [place] heart without angina pectoris (Chronic) I25.10 Moderate coronary artery disease involving the mid circumflex artery and distal circumflex artery with preserved left ventricular ejection fraction. 04/18/18 Paroxysmal supraventricular tachycardia (Chronic) I47.1 Nonrheumatic mitral valve prolapse (Chronic) I34.1 Acute on chronic respiratory failure with hypoxia and hypercapnia (Chronic) J96.21, J96.22 NSTEMI (non-ST elevated myocardial infarction) (Resolved) Onset Date: 04/16/18 I21.4 COPD (chronic obstructive pulmonary disease) (Chronic) J44.9 Bipolar disorder F31.9 Chronic back pain M54.9, G89.29 Diverticula of colon K57.30 GERD (gastroesophageal reflux disease) K21.9 Hypersomnia, unspecified G47.10 Hypothyroidism E03.9 TMJ (temporomandibular joint syndrome) M26.609 Hypoglycemia (Resolved) E16.2 Hypokalemia (Resolved) E87.6 Urinary incontinence (Inactive) R32 - Past Surgical History Surgical History: Past Surgical History (Last Reviewed 07/10/18 @ 10:56 by Sarah Pat NP-Michael) History of appendectomy (Resolved) Z98.890, Z90.49 History of section (Resolved) Z98.891 History of cholecystectomy (Resolved) Z98.890, Z90.49 History of dilatation and curettage (Resolved) Z98.890 History of left heart catheterization Onset Date: 04/18/18 Z98.890 Moderate coronary artery disease involving the mid circumflex artery and distal circumflex artery with preserved left ventricular ejection fraction. History of left oophorectomy (Resolved) Z98.890, Z90.721 Surgical History: - - Emergency 1993 Left ovary follapian tube and ovary removed 1998 Throat biopsy: benign 1999 Hydrothermal ablation and D&C 2005 Emergency appendectomy 2009 Cholecystectomy lap 2002 - Family History Summary Family History: Family History (Last Reviewed 07/10/18 @ 10:56 by LALITHA Neal) Mother Hypertension Pulmonary embolism Psychiatric care Father Lung cancer Grandmother Breast cancer Sister Asthma Seizures Psychiatric care Depression Son Depression Psychiatric care ADHD Daughter Depression Psychiatric care Bipolar 1 disorder Social History - Smoking History Smoking Status: Former smoker Years Smokin Packs Smoked per Day: 2 Hx Smoking Cessation Date: 07/07/2018 Hx Tobacco Use: Yes Hx Smoking Exposure: Yes - both parents smoked while I was a child. 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 Left click = Reports (Spencer) Review of Present Symptoms: Reports: Fatigue - some, Appetite - Special Diet - cardiac diet 1800 calorie, low salt low fat. Denies: Shortness of Breath at Rest, Shortness of Breath with Exertion, Dizziness/Lightheadedness, Appetite - Normal, Sleep - Normal - insomnia, Sexual Changes - Pain Is Patient Pain Free?: Yes Pain Location: none Pain Level: 0/10 Risk Factor Assessment - Vital Signs Temperature: 98.7 F Respiratory Rate: 16 Pulse Ox: 97 Blood Pressure: 84/50 - Pulse Pulse Rate: 81 Pulse Rhythm: Regular - Hypertension Blood Pressure Sitting - Left Arm: 84/50 - Diabetes Nutrition Referral for Diabetes: No - Obesity Height: 5 ft 3 in Weight:: 133 lb Weight in Pounds: 133.0 lbs Weight Source: Standing Scale Body Mass Index (BMI): 23.6 Nutritional Referral for Obesity: No - Physical Inactivity Physical Inactivity: None - Risk Stratification Risk Guidelines: Lowest Risk: Risk Factor for Smoking, Risk Factor for Dyslipidemia, Risk Factor for Diabetes, Risk Factor for Obesity, Risk Factor for Hypertension - hypotensive, Risk Factor for Sedentary Lifestyle - For Smoking Smoking Risk Guidelines: Smoking Low Risk: None or quit greater than 6 months ago. Smoking Moderate Risk: Smoker or quit 6 months or less ago. Smoking High Risk: Smoker - For Dyslipidemia Dyslipidemia Risk Guidelines: Low Risk: Moderate Risk: High Risk: 15-25% fat 25.1-29% fat >/= 30% fat. <7% sat fat 7-9% sat fat >9% sat fat. <150 mg chol 150-299 mg chol >/= 300 mg chol. LDL <100 LDL 100-129 LDL >/= 130. Chol/HDL ratio <5.0 Chol/HDL ratio 5.0-6.0 Chol/HDL ratio >6.0. Triglycerides <100 Triglycerides 100-149 Triglycerides >/= 150 - For Diabetes Mellitus Diabetes Risk Guidelines: Diabetes Low Risk: HgA1c <6.5% and/or FBG <120. Diabetes Moderate Risk: HgA1c 6.6-7.9% and/or FBG 120-180. Diabetes High Risk: HgA1c >/= 8% and/or FBG >180 - For Obesity/Overweight Obesity/Overweight Risk Guidelines: Obesity Low Risk: BMI <25.0. Obesity Moderate Risk: BMI 25-29.9. Obesity High Risk: BMI >/= 30.0 - For Hypertension Hypertension Risk Guidelines: Hypertension Low Risk: Systolic <120 and Diastolic <80. Hypertension Moderate Risk: Systolic 120-139 and Diastolic 80-89. Hypertension High Risk: Systolic >/= 140 and Diastolic >/= 90 - For Sedentary Lifestyle Sedentary Lifestyle Risk Guidelines: Sedentary Lifestyle Low Risk: >/= 1,500 kcal/week. Sedentary Lifestyle Moderate Risk: 700-1,499 kcal/week. Sedentary Lifestyle High Risk: < 700 kcal/week - For Depression Depression Risk Guidelines: Depression Low Risk: Not clinically depressed. Depression Moderate Risk: Mildly depressed. Depression High Risk: Clinically depressed - Family History Family History: Family History (Last Reviewed 07/10/18 @ 10:56 by Sarah Pat NP-C) Mother Hypertension Pulmonary embolism Psychiatric care Father Lung cancer Grandmother Breast cancer Sister Asthma Seizures Psychiatric care Depression Son Depression Psychiatric care ADHD Daughter Depression Psychiatric care Bipolar 1 disorder Motivation - Motivation to Participate On a scale of 1 to 10, how prepared are you to commit to attending program?: 8 What do you see as barriers to successfully being able to complete the program?: son's work schedule What do you see as the benefits of succesfully completing the program? In other words, what do you hope to get out of participating in the program?: learn more about heart health get heart stronger Are there issues you are dealing with that will interfere with completing the program?: none Do you have a spouse or signficant other, family or friends who will help support you to complete the program?: yes
[2018-08-08 11:03] VITALS: BP 84/50; PULSE 81; RESP 16; TEMP 37.1; O2SAT 97; BMI 23.6
--- NOTE | 2018-08-08 12:13 | PCM.CR.ITP ---
General Information - General Information Admitting Diagnosis: NSTEMI - Education/Goals Barriers to Learning: Vision Impairment Individual Counseling: Initial Assessment: Nicotine/Smoking, Abnormal Cholesterol Levels Cardiac Rehabilitation Goals: 1. Maintain the individual as the primary focus of care. 2. To improve the patient's quality of life. 3. Identification of cardiac risk factors and provide cardiac risk factor management. 4. Enhance the psychosocial status of the patient. 5. Reconditioning enough to allow the patient to resume customary activities. 6. Control symptoms of cardiac disease Scale for measuring improvement of personal goals: Enter appropriate number in Comments. 2 = Unchanged. 3 = Slightly Better. 4 = Moderate Improvement. 5 = Met my Goal Personal Goals: Initial Assessment: Quit smoking (participate in smoking cessation, Improve management of stress and emotions, Improve energy level, Improve knowledge of cardiac disease, Improve muscle strength and endurance, Control risk factors (learn risk factor modification) Exercise - Initial Assessment - Visit Date of Eval: 08/08/18 - ESTABLISHED ITP; START ON 08/19/18 Session #:: 0 - Stages of Change Stages of Change:: Action - Exercise Prescription Mode:: Treadmill, Rower, Airdyne, NuStep, Arm Ergometer Angina with exercise?: No Target Heart Rate:: 117-126 - Hypertension Do any of the following apply?: No - HYPOTENSIVE Resting Blood Pressure:: 98/48 - Intervention Home Exercise/Activity Goal:: Sitting Time <3 hrs/day - Education Goals:: Warm-up, RPE NIKHIL Scale, S/S, Safe Exercise, Self-Monitoring - Exercise Program Goals Exercise Program Goals: Aerobic Activity >30 min Nutrition - Initial Assessment - Program Goals Nutrition Program Goals: LDL <70. Total Cholesterol <200. HDL >45. Triglycerides <150. HgbA1C <7%. BMI <25 - Visit Date of Assessment:: 08/08/18 - Stages of Change Stages of Change:: Action - Diabetes Diabetes:: No Do you monitor your blood sugar at home?: No - Weight Management Height: 5 ft 3 in Weight:: 133 lb Body Fat %:: 23.8 - Intervention Referral to dietitian:: No Referral to Diabetic Clinic:: No Will attend diet classes:: Yes - Education Gave educational materials for:: Signs & symptoms of hypoglycemia - SUFFERS FROM HYPOGLYCEMIA AT TIMES, Healthy eating Tobacco - Initial Assessment - Program Goals Tobacco Program Goals: Complete smoking cessation. Attend education classes. Improve Knowledge Test score - Stage of Change Stages of Change:: Action - Learning Barriers Learning Barriers: Ready to Learn - Family Support Do you have family support?: Yes - Tobacco Use Tobacco Use: Cigarettes How long ago did you quit using tobacco products?: Less than 6 months ago How many cigarettes do you smoke per day?: 40 Years Smokin Do you use smokeless tobacco?: No - Intervention Smoking Cessation Referral:: Yes - PATIENT IS REQUESTING SUPPORT WITH SMOKING CESSATION Individual Education/Counseling:: No Education Schedule Given:: Yes - Education Gave educational material for:: Tobacco triggers, Coronary artery disease, Risk factors, Sexuality, Medical compliance, Cardiac A&P, Angina signs & symptoms Psychosocial - Initial Assess - Target Goals Target Goals: Assess presence or absence of depression. Using a valid screening tool, maximizes coping skills. Positive support system - Stages of Change Stages of Change:: Action - Psychosocial Test Tool Used:: HANDS Depression Questionnaire - Intervention PS - Interventions: Yes Attend Stress Management Classes, No Referral to Mental Health - TREATED FOR BIPOLAR AND DEPRESSION, No Referral to [facility] Case Management, No Referral to Physician, No Uses Stress Management Skills - Education Gave educational materials for:: Coping techniques, Signs & symptoms of depression, Stress management, Relaxation techniques - Patient/Program Goal Preventative Medication(s):: Aspirin, Clopidogrel, Beta doretha, Statin/lipid - Assistive Devices Assistive Devices:: None Fall Risk Assessed:: Yes Patient Health Questionnaire Initial Assessment 1. Little interest or pleasure in doing things: Not at all 2. Feeling down, depressed, or hopeless: Several days 3. Trouble falling or staying asleep, or sleeping too much: More than half the days 4. Feeling tired or having little energy: Several days 5. Poor appetite or overeating: Several days 6. Feeling bad about yourself -- or that you are a failure or have let yourself or your family down: Not at all 7. Trouble concentrating on things, such as reading the newspaper or watching television: Not at all 8. Moving or speaking so slowly that other people could have noticed. Or the opposite - being so fidgety or restless that you have been moving around a lot more than usual: Not at all 9. Thoughts that you would be better off , or of hurting yourself in some way: Not at all How difficult have these problems made it for you to do your work, take care of things at home, or get along with other people?: Somewhat difficult Total Score: 5 SABINE-Q SV Test - Statements CAD is a disease of the arteries in the heart: False Examples of risk factors for heart disease: True Angina is chest pain or discomfort: True The benefits of resistance training include: I Don't Know Eating more meat and dairy products: True Anti-platelet medications such as aspirin are important: True The only effective way to manage stress: False An exercise warm-up slowly increases heart rate: True Prepared, processed foods usually have high sodium: True Depression is common after a heart attack: True The statin medications lower cholesterol: True To control blood pressure, lower the amount of sodium: True If someone gets chest discomfort during walking: False Transfats are partially hydrogenated vegetable oils: True Sleep apnea that is not treated increases the risk: I Don't Know To control cholesterol, one should become a vegetarian: False Someone knows if he/she is exercising at the right level: I Don't Know Diabetes cannot be prevented with exercise & health eating: False Stress is a large risk for heart attack: True A diet that can help lower blood pressure is rich in: True - Total Score Total Correct Responses: 16 Self-Efficacy Initial Assessment We would like to know how confident you are in doing certain activities. Please select your confidence level for:: Select your confidence level for the following using the scale 1-10 where 1 is not at all confident and 10 is totally confident. Your score is the average of all 6 responses. Fatigue: How confident are you that you can keep the fatigue caused by your disease from interfering with the things you want to do? Select Number: 7 Physical Discomfort or Pain: How confident are you that you can keep the physical discomfort or pain of your disease from interfering with the things you want to do? Select Number: 8 Emotional Distress: How confident are you that you can keep the emotional distress caused by your disease from interfering with the things you want to do? Select Number: 9 Other Symptoms or Health Problems: How confident are you that you can keep other symptoms or health problems from interfering with the things you want to do? Select Number: 9 Different Tasks and Activities: How confident are you that you can do the different tasks and activities needed to manage your health condition so as to reduce your need to see a doctor? Select Number: 9 Medication: How confident are you that you can do things other than just taking medication to reduce how much your illness affects your everyday life? Select Number: 9 Total Score:: 8 Nutrition Survey - Nutrition Survey Instructions Scoring Instructions: Scoring is as follows: Yes = 1 points. No = 0 point. Patient score that is >/=12 is considered to be at potential nutritional risk and could benefit from a referral to a registered dietitian. - Nutrition Survey Initial Have you lost >10 lbs over the past 2 months without trying?: No Are you following a special diet at home for diabetes, low fat, or low salt?: Yes Are you interested in meeting with a dietitian for help understanding your diet?: Yes Do you eat less than 3 meals a day?: Yes Do you eat fatty meats (presley, sausage, ribs, etc), fried foods, desserts, large amounts of salad dressings, margarine, butter, or cheese most days?: No Do you have food allergies? [Enter types in comment field]: No Do you eat in restaurants more than 3 times a week?: No Do you season food with salt, seasoning salt, or garlic salt?: No Do you used canned, boxed, frozen meals, or soups, seasoning packets?: Yes Total Score:: 4
[2018-08-08 12:20] VITALS: BP 98/48
== END ==
PROVIDERS: Family Provider Family Medicine; PCP Family Medicine; Referring Provider Family Medicine; Visit Provider Family Medicine
DX: I25.2 Old myocardial infarction (principal)

== ENCOUNTER 2018-08-21 11:30 | Outpatient (RCR) | payer MEDICAID, SELFPAY ==
--- NOTE | 2018-09-04 08:33 | PCM.CR.ITP ---
General Information - General Information Admitting Diagnosis: NSTEMI - Education/Goals Cardiac Rehabilitation Goals: 1. Maintain the individual as the primary focus of care. 2. To improve the patient's quality of life. 3. Identification of cardiac risk factors and provide cardiac risk factor management. 4. Enhance the psychosocial status of the patient. 5. Reconditioning enough to allow the patient to resume customary activities. 6. Control symptoms of cardiac disease Scale for measuring improvement of personal goals: Enter appropriate number in Comments. 2 = Unchanged. 3 = Slightly Better. 4 = Moderate Improvement. 5 = Met my Goal Exercise - 30-day Assessment - Visit Date of Eval: 09/04/18 Session #:: 4 - Stages of Change Stages of Change:: Action - Exercise Prescription Mode:: Treadmill, Airdyne, NuStep Frequency (x/week): 3 Duration:: 30 METs - Progression: 0.5-1 MET as tolerated: 2.5 Target Heart Rate:: 117-126 Max HR 109 - Hypertension Resting Blood Pressure:: 84/50 Peak Exercise Blood Pressure:: 128/64 - Intervention Home Exercise/Activity Goal:: Sitting Time <3 hrs/day - Education Goals:: Warm-up, RPE NIKHIL Scale, S/S, Safe Exercise, Self-Monitoring - Exercise Program Goals Exercise Program Goals: Aerobic Activity >30 min, B/P <130/80 Nutrition - 30-Day Assessment - Program Goals Nutrition Program Goals: LDL <70. Total Cholesterol <200. HDL >45. Triglycerides <150. HgbA1C <7%. BMI <25 - Visit Date of Eval: 09/04/18 - Stages of Change Stages of Change:: Action - Lipids Has the patient seen the dietitian?: No - Weight Management Weight:: 63.049 kg - Intervention Referral to dietitian:: No Referral to Diabetic Clinic:: No Will attend diet classes:: Yes - Education Attended class for:: Signs & symptoms of hypoglycemia, Signs & symptoms of hyperglycemia, Relate diabetes to coronary artery disease, Healthy eating Tobacco - 30-Day Assessment - Program Goals Tobacco Program Goals: Complete smoking cessation. Attend education classes. Improve Knowledge Test score - Stage of Change Stages of Change:: Action - Learning Barriers Learning Barriers: Participates in education - Family Support Do you have family support?: Yes - Tobacco Use Tobacco Use: Cigarettes - Intervention Smoking Cessation Referral:: Yes Individual Education/Counseling:: No Education Schedule Given:: Yes - Education Attended class for:: Tobacco triggers, Coronary artery disease, Risk factors, Sexuality, Medical compliance, Cardiac A&P, Angina signs & symptoms Psychosocial - 30-Day Assess - Target Goals Target Goals: Assess presence or absence of depression. Using a valid screening tool, maximizes coping skills. Positive support system - Stages of Change Stages of Change:: Action - Psychosocial Test Tool Used:: HANDS Depression Questionnaire - Intervention PS - Interventions: Yes Attend Stress Management Classes, Yes Uses Stress Management Skills, No Referral to Mental Health, No Referral to [facility] Case Management, No Referral to Physician - Education Attended classes for:: Coping techniques, Signs & symptoms of depression, Stress management, Relaxation techniques - Assistive Devices Assistive Devices:: None Fall Risk Assessed:: Yes Patient Health Questionnaire 30-Day Re-eval Assessment 1. Little interest or pleasure in doing things: Not at all 2. Feeling down, depressed, or hopeless: Several days 3. Trouble falling or staying asleep, or sleeping too much: More than half the days 4. Feeling tired or having little energy: Several days 5. Poor appetite or overeating: Several days 6. Feeling bad about yourself -- or that you are a failure or have let yourself or your family down: Not at all 7. Trouble concentrating on things, such as reading the newspaper or watching television: Not at all 8. Moving or speaking so slowly that other people could have noticed. Or the opposite - being so fidgety or restless that you have been moving around a lot more than usual: Not at all 9. Thoughts that you would be better off , or of hurting yourself in some way: Not at all How difficult have these problems made it for you to do your work, take care of things at home, or get along with other people?: Somewhat difficult Total Score: 5 Self-Efficacy 30-Day Re-eval Assessment We would like to know how confident you are in doing certain activities. Please select your confidence level for:: Select your confidence level for the following using the scale 1-10 where 1 is not at all confident and 10 is totally confident. Your score is the average of all 6 responses. Fatigue: How confident are you that you can keep the fatigue caused by your disease from interfering with the things you want to do? Select Number: 7 Physical Discomfort or Pain: How confident are you that you can keep the physical discomfort or pain of your disease from interfering with the things you want to do? Select Number: 8 Emotional Distress: How confident are you that you can keep the emotional distress caused by your disease from interfering with the things you want to do? Select Number: 9 Other Symptoms or Health Problems: How confident are you that you can keep other symptoms or health problems from interfering with the things you want to do? Select Number: 9 Different Tasks and Activities: How confident are you that you can do the different tasks and activities needed to manage your health condition so as to reduce your need to see a doctor? Select Number: 9 Medication: How confident are you that you can do things other than just taking medication to reduce how much your illness affects your everyday life? Select Number: 9 Total Score:: 8
[2018-09-04 08:40] VITALS: BP 128/64; BP 84/50
== END 2018-09-06 23:59 ==
LOC: CR 11:30
PROVIDERS: Family Provider Family Medicine; PCP Family Medicine; Referring Provider Family Medicine; Visit Provider Family Medicine
DX: I21.4 Non-ST elevation (NSTEMI) myocardial infarction (principal)
CPT/HCPCS: 93798

== ENCOUNTER 2018-08-24 15:02 | Emergency (ER) | payer MEDICAID, SELFPAY ==
[2018-08-24 15:03] VITALS: BP 103/53; PULSE 60; RESP 16; TEMP 36.6; O2SAT 99; BMI 24.6
--- NOTE | 2018-08-24 15:53 | EKG12_ITS ---
Test Reason : Blood Pressure : / mmHG Vent. Rate : 055 BPM Atrial Rate : 055 BPM P-R Int : 100 ms QRS Dur : 070 ms QT Int : 442 ms P-R-T Axes : 074 046 057 degrees QTc Int : 422 ms Sinus bradycardia with short MS Otherwise normal ECG Confirmed by JIMMY PALMER, ONEL ([id number]), editorial intern TOD CORADO ([id number]) on 08/28/2018 11:55:22 AM Referred By: Sofy Richter Confirmed By:ONEL MARQUEZ MD
--- NOTE | 2018-08-24 15:54 | ED.VISSUMM ---
- ER Visit Summary Date of Service: 08/24/18 Chief Complaint: Back pain History of Present Illness: The patient is a 53 F nontraumatic mid back pain since yesterday states the pain wraps around to her front of her abdomen to the epigastrium bilaterally. No nausea or vomiting. No diarrhea. No urinary symptoms. States this morning has some chest tightness. Nonproductive cough. Quit smoking 5 months ago. States in April hospitalized for severe pneumonia with an NSTEMI catheterization reported 50-70% circumflex lesion with no intervention. Followed by Dr. Merino. She does take baby aspirin, taken this morning. Denies diabetes history of hypercholesterolemia. No fever, chills, sweats. Denies history of similar. States since her CT has been doing cardiac rehab 3 times a week using hand bicycling. Pain is worse with movement. States cannot tolerate Tylenol able to tolerate ibuprofen. States given Toradol in the past. Denies history of gastric ulcers. She is on reflux medications. History of appendectomy and cholecystectomy. Physical Examination: General: Alert and oriented ?3, no acute distress HEENT: Normocephalic, atraumatic. Moist mucosa membranes Neck: supple, nontender. Cardiovascular: Regular rate and rhythm, no murmurs Respiratory: Normal breath sounds, symmetric, no distress Abdomen: Soft, nontender, nondistended. Negative Kothari's McBurney's tenderness. Back: There is midline tenderness mid back at T10-T11 with no step-offs. Straight leg test was negative bilaterally. Extremities: Nontender, no edema, pulses intact ?4 Neuro: no focal neurological deficits. Test Results: EKG sinus rate of [address] or T wave changes. Hemoglobin 0.6. White count 4.8. Creatinine 0.64. Lipase 114. Liver enzymes normal troponin 0 0.015. Chest x-ray negative. Emergency Department Course and Treatment: Patient on back pain radiating to the front. Patient's cardiac history I did check an EKG no cardiac workup that was negative. Abdominal labs are all negative. She given Toradol pain went down to the 5 on reevaluation discussion with the patient with her cardiac rehab, likely more musculoskeletal. She did have a T9 vertebrae that was rotated right side bend right knee extended. Discussed somatic dysfunction. Discussed with patient performing osteopathic manipulation for which she agreed. Performed HVLA of the specific region with full improvement of symptoms. Patient will monitor symptoms follow with PCP. All questions were answered. Treatment Plan: [] Disposition: Discharge Impression: 1. Atypical chest pain 2. Somatic dysfunction of thoracic spine status post HVLA This note was generated with [employer] dictation software. It may contain incorrect words, spelling, and punctuation that were not noted in review of the chart prior to signing ED Disposition - Plan for ED Patient: Disposition: Home or Assisted Living Chief Complaint: Back Diagnosis: Atypical chest pain, Somatic dysfunction of spine, thoracic Instructions: ED Chest Pain NonCardiac, Relieving Back Pain Referrals: Sofy Richter DO [Primary Care Provider] - 3-5 Days Additional Instructions: s/p HVLA thoracic spine with improvement. Follow up with your doctor.
--- NOTE | 2018-08-24 15:57 | ED.DCSUM_ITS ---
- ER Visit Summary Date of Service: 08/24/18 Chief Complaint: Back pain History of Present Illness: The patient is a 53 F nontraumatic mid back pain since yesterday states the pain wraps around to her front of her abdomen to the epigastrium bilaterally. No nausea or vomiting. No diarrhea. No urinary symp toms. States this morning has some chest tightness. Nonproductive cough. Quit smoking 5 months ago. States in April hospitalized for severe pneumonia with an NSTEMI catheterization reported 50-70% circumflex lesion with no intervention. Followed by Dr. Merino. She does take baby aspirin, taken this morning. Denies diabetes history of hypercholesterolemia. No fever, chills, sweats. Denies hi story of similar. States since her MS has been doing cardiac rehab 3 times a week using hand bicycling. Pain is worse with movement. States cannot tolerate Tylenol able to tolerate ibuprofen. States given Toradol in the past. Denies history of gastric ulcers. She is on reflux medications. History of appendectomy and cholecystectomy. Physical Examination: General: Alert and oriented ?3, no acute distress HEENT: Normocephalic, atraumatic. Moist mucosa membranes Neck: supple, nontender. Cardiovascular: Regular rate and rhythm, no murmurs Respiratory: Normal breath sounds, symmetric, no distress Abdomen: Soft, nontender, nondistended. Negative Kothari's McBurney's tenderness. Back: There is midline tenderness mid back at T10-T11 with no step-offs. Straight leg test was negative bilaterally. Extremities: Nontender, no edema, pulses intact ?4 Neuro: no focal neurological deficits. Test Results: EKG sinus rate of [address] or T wave changes. Hemoglobin 0.6. White count 4.8. Creatinine 0.64. Lipase 114. Liver enzymes normal troponin 0 0.015. Chest x-ray negative. Emergency Department Course and Treatment: Patient on back pain radiating to the front. Patient's cardiac history I did check an EKG no cardiac workup that was negative. Abdominal labs are all negative. She given Toradol pain went down to the 5 on reevaluation discussion with the patient with her cardiac rehab, likely more musculoskeletal. She did have a T9 vertebrae that was rotated right side bend right knee extended. Discussed somatic dysfunction. Discussed with patient performing osteopathic manipulation for which she agreed. Performed HVLA of the specific region with full improvement of symptoms. Patient will monitor symptoms follow with PCP. All questions were answered. Treatment Plan: [] Disposition: Discharge Impression: 1. Atypical chest pain 2. Somatic dysfunction of thoracic spine status post HVLA This note was generated with [employer] dictation software. It may contain incorrect words, spelling, and punctuation that were not noted in review of the chart prior to signing ED Disposition - Plan for ED Patient: Disposition: Home or Assisted Living Chief Complaint: Back Diagnosis: Atypical chest pain, Somatic dysfunction of spine, thoracic Instructions: ED Chest Pain NonCardiac, Relieving Back Pain Referrals: Sofy Richter DO [Primary Care Provider] - 3-5 Days Additional Instructions: s/p HVLA thoracic spine with improvement. Follow up with your doctor.
[2018-08-24] MEDS: Ketorolac 30 MG/ML Syringe IV (16:08)
--- NOTE | 2018-08-24 16:17 | RAD_ITS ---
STUDY: X-RAY CHEST REASON FOR EXAM: Female, 53 years old. Cough. TECHNIQUE: Frontal and lateral views of the chest. COMPARISON: 06/21/2018. FINDINGS: The lungs are clear and expanded. There is no demonstrated pleural abnormality. Normal size heart. Normal mediastinum and ashli. Normal visualized pulmonary arteries. Normal visualized aortic arch and descending thoracic aorta. Normal visualized thoracic spine. Normal visualized ribs, clavicles, and shoulders. There is no demonstrated abnormality of the visualized soft tissue structures of the upper abdomen. RAD/Chest PA and Lateral IMPRESSION: Normal x-ray examination of the chest. Electronically Signed: Eduardo Bae MD at 17:06 EST , Service support ,
[2018-08-24 16:20] LABS: Absolute Neutrophil Count 2.5 X10^3/uL (2.0-7.7); Basophil# 0.01 X10^3/uL; Basophil% 0.2 % (0-1); Eosinophil# 0.09 X10^3/uL; Eosinophils% 1.9 % (0-5); Hematocrit 34.9 % (37-47); Hemoglobin 11.6 g/dl (12.0-15.0); Lymphocyte % 41.4 % (19-41); Mean Corp Hgb Conc 33.2 g/gl (32-36); Mean Corpuscular Hgb 30.5 pg (27.0-32.0); Mean Corpuscular Volume 91.8 fL (81-99); Mean Platelet Vol. 11.5 fl (6.2-12.0); Monocyte# 0.27 X10^3/uL; Monocyte% 5.6 % (0-10); Neutrophil # 2.46 X10^3/uL (2.7-7.7); Neutrophil % 50.9 % (47-70); Platelet Count 162 K/mm3 (150-450); RBC Distribution Width CV 11.3 % (11.6-14.6); RBC Distribution Width SD 37.4 fl (35.1-43.9); White Blood Count 4.8 K/mm3 (4.4-11.0)
[2018-08-24 16:33] LABS: POSITIVE COUNT NO; POSITIVE DIFFERENTIAL NO; POSITIVE MORPHOLOGY NO
[2018-08-24 17:13] LABS: ALB/GLOB Ratio 1.1 RATIO (0.9-2.4); AST(SGOT) 26 U/L (15-37); Alanine Aminotransfer ALT/SGPT 31 U/L (13-56); Albumin, Serum 3.4 g/dL (3.2-5.0); Alkaline Phosphatase 90 U/L (45-117); Anion Gap 8 (5-15); BUN 27 mg/dL (7-18); BUN/Creat Ratio 42.5 RATIO (10-20); Bilirubin, Direct < 0.05 mg/dL (0.00-0.30); Calcium,Total 7.8 mg/dL (8.5-10.1); Chloride 109 mmol/L (98-107); Creatinine, Serum 0.64 mg/dL (0.55-1.02); EST Glomerular Filtration Rate 104 mL/min (>60); Est Glom Filt Rate - Afr Amer 126 mL/min (>60); Estimated Creatinine Clearance 85.06 ml/min; Globulin 3.1 g/dL (2.2-4.2); Glucose 90 mg/dL (74-106); Potassium 3.7 mmol/L (3.5-5.1); Protein, Total 6.5 g/dL (6.4-8.2); Sodium Level 145 mmol/L (136-145); Total Bilirubin < 0.10 mg/dL (0.20-1.00)
[2018-08-24 17:35] VITALS: BP 98/62; PULSE 55; RESP 15; O2SAT 95
[2018-08-24 17:42] LABS: Lipase 114 U/L (73-393)
[2018-08-24 17:56] VITALS: BP 126/75; PULSE 61; RESP 15; O2SAT 94
== END 2018-08-24 17:57 | disposition home or self-care (01) ==
PROVIDERS: Emergency Provider Emergency Medicine; Family Provider Family Medicine; PCP Family Medicine
DX: R07.89 Other chest pain (principal); M99.02 Segmental and somatic dysfunction of thoracic region; R05 Cough; I25.2 Old myocardial infarction; Z87.891 Personal history of nicotine dependence; Z90.49 Acquired absence of other specified parts of digestive tract; E78.00 Pure hypercholesterolemia, unspecified; J44.9 Chronic obstructive pulmonary disease, unspecified; K21.9 Gastro-esophageal reflux disease without esophagitis
CPT/HCPCS: 71046; 80053; 80076; 83690; 84484; 85025; 93005; 96374; 99284; A4216

== ENCOUNTER 2018-09-13 06:17 | Outpatient (RCR) | payer MEDICAID, SELFPAY ==
[2018-09-07 01:50] VITALS: BP 128/64; BP 84/50
== END 2018-10-07 23:59 ==
LOC: CR 06:17
PROVIDERS: Family Provider Family Medicine; PCP Family Medicine; Referring Provider Family Medicine; Visit Provider Family Medicine
DX: I21.4 Non-ST elevation (NSTEMI) myocardial infarction (principal)
CPT/HCPCS: 93798

== ENCOUNTER → 2018-10-23 16:01 | Outpatient (CLI) | payer MEDICAID, SELFPAY ==
[2018-10-23 17:30] LABS: Absolute Lymphocyte Count 2.63 X10^3/ul (0.83-4.51); Absolute Neutrophil Count 2.6 X10^3/uL (2.0-7.7); Basophil# 0.05 X10^3/uL; Basophil% 0.9 % (0-1); Eosinophil# 0.16 X10^3/uL; Eosinophils% 2.7 % (0-5); Hematocrit 38.8 % (37-47); Hemoglobin 12.6 g/dl (12.0-15.0); Lymphocyte # 2.63 X10^3/ul (4.0); Mean Corp Hgb Conc 32.5 g/gl (32-36); Mean Corpuscular Hgb 30.1 pg (27.0-32.0); Mean Corpuscular Volume 92.6 fL (81-99); Mean Platelet Vol. 11.5 fl (6.2-12.0); Monocyte# 0.43 X10^3/uL; Monocyte% 7.4 % (0-10); Neutrophil # 2.57 X10^3/uL (2.7-7.7); Neutrophil % 43.8 % (47-70); Platelet Count 238 K/mm3 (150-450); RBC Distribution Width CV 12.8 % (11.6-14.6); RBC Distribution Width SD 43.2 fl (35.1-43.9); Red Blood Count 4.19 M/mm3 (4.2-5.4); White Blood Count 5.9 K/mm3 (4.4-11.0)
[2018-10-23 17:47] LABS: POSITIVE COUNT NO; POSITIVE DIFFERENTIAL NO; POSITIVE MORPHOLOGY NO
[2018-10-23 18:32] LABS: ALB/GLOB Ratio 1.1 RATIO (0.9-2.4); AST(SGOT) 32 U/L (15-37); Alanine Aminotransfer ALT/SGPT 30 U/L (13-56); Alkaline Phosphatase 108 U/L (45-117); Anion Gap 8 (5-15); BUN 23 mg/dL (7-18); BUN/Creat Ratio 29.5 RATIO (10-20); Calcium,Total 8.1 mg/dL (8.5-10.1); Chloride 105 mmol/L (98-107); Creatinine, Serum 0.78 mg/dL (0.55-1.02); EST Glomerular Filtration Rate 82 mL/min (>60); Est Glom Filt Rate - Afr Amer 100 mL/min (>60); Free T3 2.5 pg/mL (2.18-3.98); Globulin 3.6 g/dL (2.2-4.2); Glucose 73 mg/dL (74-106); Iron 118 ug/dL (50-170); Potassium 3.8 mmol/L (3.5-5.1); Protein, Total 7.6 g/dL (6.4-8.2); Sodium Level 141 mmol/L (136-145); T4 Free Direct 0.84 ng/dL (0.76-1.46); Vitamin B12 529 pg/mL (211-911)
--- OUTSIDE RECORDS SUMMARY | 2018-12-28 15:58 | XMS RPT_ITS ---
:1965 Author Organization OHIP Support Name Relationship Address Phone IFEOMA FOWLER Unavailable [address] + [place] [address] UE Unavailable Unavailable Unavailable IFEOMA FOWLER Unavailable [address] + [place] [address] UE Unavailable Unavailable Unavailable IFEOMA FOWLER Unavailable [address] + [place] [address] UE Unavailable Unavailable Unavailable IFEOMA FOWLER Unavailable [address] + [place] [address] UE Unavailable Unavailable Unavailable UE Unavailable Unavailable Unavailable IFEOMA FOWLER Unavailable [address] + [place] [address] UE Unavailable Unavailable Unavailable UE Unavailable Unavailable Unavailable IFEOMA FOWLER Unavailable [address] + [place] [address] JAIRO TAM Unavailable [address] + [place] [address] UE Unavailable Unavailable Unavailable IFEOMA FOWLER Unavailable [address] + [place] [address] JAIRO TAM Unavailable [address] + [place] [address] UE Unavailable Unavailable Unavailable IFEOMA FOWLER Unavailable [address] + [place] [address] JAIRO TAM Unavailable [address] + [place] [address] UE Unavailable Unavailable Unavailable IFEOMA FOWLER Unavailable [address] + [place] [address] JAIRO TAM Unavailable [address] + [place] [address] UE Unavailable Unavailable Unavailable CROSMILA IFEOMA Unavailable [address] + [place] [address] JAIRO TAM Unavailable [address] + [place] [address] UE Unavailable Unavailable Unavailable CROSMILA IFEOMA Unavailable [address] + [place] [address] JAIRO TAM Unavailable [address] + [place] [address] UE Unavailable Unavailable Unavailable [place] IFEOMA Unavailable [address] + [place] [address] JAIRO TAM Unavailable [address] + [place] [address] UE Unavailable Unavailable Unavailable MALCOLM IFEOMA Unavailable [address] + [place] [address] JAIRO TAM Unavailable [address] + [place] [address] UE Unavailable Unavailable Unavailable MALCOLM IFEOMA Unavailable [address] + [place] [address] JAIRO TAM Unavailable [address] + [place] [address] UE Unavailable Unavailable Unavailable MALCOLM IFEOMA Unavailable [address] + [place] [address] JAIRO TAM Unavailable [address] + [place] [address] UE Unavailable Unavailable Unavailable MALCOLM IFEOMA Unavailable [address] + [place] [address] JAIRO TAM Unavailable [address] + [place] [address] UE Unavailable Unavailable Unavailable ELLIOTT FOWLERK Unavailable [address] + [place] [address] JAIRO TAM Unavailable [address] + [place] [address] UE Unavailable Unavailable Unavailable MALCOLM IFEOMA Unavailable [address] + [place] [address] JAIRO TAM Unavailable [address] + [place] [address] UE Unavailable Unavailable Unavailable IFEOMA FOWLER Unavailable [address] + [place] [address] JAIRO TAM Unavailable [address] + [place] [address] UE Unavailable Unavailable Unavailable ELLIOTT FOWLERK Unavailable [address] + [place] [address] JAIRO TAM Unavailable [address] + [place] [address] UE Unavailable Unavailable Unavailable ELLIOTT FOWLERK Unavailable [address] + [place] [address] JAIRO TAM Unavailable [address] + [place] [address] UE Unavailable Unavailable Unavailable ELLIOTT FOWLERK Unavailable [address] + [place] [address] JAIRO TAM Unavailable [address] + [place] [address] UE Unavailable Unavailable Unavailable IFEOMA FOWLER Unavailable [address] + [place] [address] JAIRO TAM Unavailable [address] + [place] [address] UE Unavailable Unavailable Unavailable IFEOMA FOWLER Unavailable [address] + [place] [address] JAIRO TAM Unavailable [address] + [place] [address] UE Unavailable Unavailable Unavailable ELLIOTT FOWLERK Unavailable [address] + [place] [address] JAIRO TAM Unavailable [address] + [place] [address] UE Unavailable Unavailable Unavailable ELLIOTT FOWLERK Unavailable [address] + [place] [address] JAIRO TAM Unavailable [address] + [place] [address] UE Unavailable Unavailable Unavailable [place], IFEOMA Unavailable [address] + [place] [address] JAIRO TAM Unavailable [address] + [place] [address] UE Unavailable Unavailable Unavailable [place], IFEOMA Unavailable [address] + [place] [address] JAIRO TAM Unavailable [address] + [place] [address] UE Unavailable Unavailable Unavailable [place], IFEOMA Unavailable [address] + [place] [address] JAIRO TAM Unavailable [address] + [place] [address] UE Unavailable Unavailable Unavailable [place], IFEOMA Unavailable [address] + [place] [address] JAIRO TAM Unavailable [address] + [place] [address] UE Unavailable Unavailable Unavailable [place], IFEOMA Unavailable [address] + [place] [address] JAIRO TAM Unavailable [address] + [place] [address] UE Unavailable Unavailable Unavailable [place], IFEOMA Unavailable [address] + [place] [address] JAIRO TAM Unavailable [address] + [place] [address] UE Unavailable Unavailable Unavailable [place], IFEOMA Unavailable [address] + [place] [address] JAIRO TAM Unavailable [address] + [place] [address] UE Unavailable Unavailable Unavailable [place], IFEOMA Unavailable [address] + [place] [address] JAIRO TAM Unavailable [address] + [place] [address] UE Unavailable Unavailable Unavailable IFEOMA FOWLER Unavailable [address] + [place] [address] JAIRO TAM Unavailable [address] + [place] [address] UE Unavailable Unavailable Unavailable JAIRO TAM Unavailable Unavailable + JAIRO TAM Unavailable Unavailable + JAIRO TAM Unavailable Unavailable + JAIRO TAM Unavailable Unavailable + JAIRO TAM Unavailable [address] + [place] [address] UE Unavailable Unavailable Unavailable JAIRO TAM Unavailable [address] + [place] [address] UE Unavailable Unavailable Unavailable JAIRO TAM Unavailable [address] + [place] [address] UE Unavailable Unavailable Unavailable JAIRO TAM Unavailable [address] + [place] [address] UE Unavailable Unavailable Unavailable JAIRO TAM Unavailable Unavailable + JAIRO TAM Unavailable Unavailable + JAIRO TAM Unavailable [address] + [place] [address] UE Unavailable Unavailable Unavailable [employer] Unavailable [address] + [place] [address] JAIRO TAM Unavailable [address] + [place] [address] Care Team Providers Name Role Phone RICKY ALVAREZ, DR. SHEIKH Attending Unavailable LORNA ALVAREZ, DR. NAVA Primary Care Unavailable LORNA ALVAREZ, DR. NAVA Primary Care Unavailable DIPIKA ALVAREZ MD. THOMAS Carlin Admitting Unavailable DIPIKA ALVAREZ MD. THOMAS Carlin Attending Unavailable LORNA ALVAREZ, DR. NAVA Primary Care Unavailable Floridalma Martin MD Attending Unavailable Sofy Richter Attending Unavailable Rober Sofy Primary Care Unavailable Nicki Chua Attending Unavailable Ramiro, Issac Admitting Unavailable Malys, Sofy Primary Care Unavailable Angelique, Yamil Consulting Unavailable Paintsil, [place] Attending Unavailable Edwar, Amadou Consulting Unavailable Paintsil, [place] Consulting Unavailable Ramiro, Issac Admitting Unavailable Angelique, [place] Attending Unavailable Malys, Sofy Primary Care Unavailable Angelique, [place] Consulting Unavailable Edwar, Amadou Consulting Unavailable Koram, Nicki Nisa Consulting Unavailable Ramiro, Issac Admitting Unavailable Ramiro, Issac Attending Unavailable Malys, Sofy Primary Care Unavailable Angelique, [place] Consulting Unavailable Ramiro, Issac Consulting Unavailable Paintsil, [place] Attending Unavailable Malys, Sofy Primary Care Unavailable Angelique, [place] Consulting Unavailable Ramiro, Issac Admitting Unavailable Edwar, Amadou Consulting Unavailable Malys, Sofy Primary Care Unavailable Dev Chavez Attending Unavailable Ifeoma Quispe D.O. Attending Unavailable Ifeoma Quispe D.O. Referring Unavailable Malys, Soyf Primary Care Unavailable Ifeoma Quispe D.O. Attending Unavailable Malys, Sofy Primary Care Unavailable Ifeoma Quispe D.O. Attending Unavailable Malys, Sofy Referring Unavailable Malys, Sofy Attending Unavailable Malys, Sofy Primary Care Unavailable Malys, Sofy Attending Unavailable Malys, Sofy Referring Unavailable Malys, Sofy Primary Care Unavailable Malys, Sofy Attending Unavailable Malys, Sofy Referring Unavailable Malys, Sofy Primary Care Unavailable Malys, Sofy Primary Care Unavailable Bijan Mo Attending Unavailable Malys, Sofy Attending Unavailable Malys, Sofy Referring Unavailable Malys, Sofy Primary Care Unavailable Malys, Sofy Attending Unavailable Malys, Sofy Referring Unavailable Malys, Sofy Primary Care Unavailable Edwar, Amadou Attending Unavailable Pat, Sarah Referring Unavailable Pat, Sarah Attending Unavailable Malys, Sofy Primary Care Unavailable Pat, Sarah Attending Unavailable Malys, Sofy Referring Unavailable LALITHA Bangura Attending Unavailable Adilia, Sarah Attending Unavailable Pat, Sarah Referring Unavailable Malys, Sofy Primary Care Unavailable Agyepong, Iglesia Admitting Unavailable Agyepong, Iglesia Attending Unavailable Malys, Sofy Primary Care Unavailable Agyepong, Iglesia Consulting Unavailable Malys, Sofy Primary Care Unavailable Agyepong, Iglesia Admitting Unavailable Roby Mcnair Attending Unavailable Ifeoma Quispe D.O. Attending Unavailable Pat, Sarah Referring Unavailable Pat, Sarah Attending Unavailable Pat, Sarah Referring Unavailable Malys, Sofy Primary Care Unavailable Malys, Sofy Primary Care Unavailable Linwood Ayala Attending Unavailable Angelique, [place] Attending Unavailable Malys, Sofy Referring Unavailable Malys, Sofy Primary Care Unavailable Pat, Sarah Attending Unavailable Malys, Sofy Referring Unavailable Malys, Sofy Attending Unavailable Malys, Sofy Primary Care Unavailable Lilly Hearn Attending Unavailable Malys, Sofy Attending Unavailable Malys, Sofy Primary Care Unavailable Malys, Sofy Referring Unavailable Malys, Sofy Primary Care Unavailable Dannielle Osman Attending Unavailable Pat, Sarah Attending Unavailable Malys, Sofy Referring Unavailable Edwar, Amadou Attending Unavailable Ramiro, Issac Referring Unavailable Ramiro, Issac Admitting Unavailable Brock Aguayo Attending Unavailable Malys, Sofy Primary Care Unavailable Angelique, [place] Consulting Unavailable Edwar, Amadou Consulting Unavailable Paintsil, [place] Consulting Unavailable Ramiro, Issac Admitting Unavailable Angelique, [place] Attending Unavailable Malys, Sofy Primary Care Unavailable Angelique, Yamil Consulting Unavailable Edwar, Amadou Consulting Unavailable Paintsil, [place] Consulting Unavailable Ramiro, Issac Admitting Unavailable Angelique, [place] Attending Unavailable Malys, Sofy Primary Care Unavailable Angelique, [place] Consulting Unavailable Edwar, Amadou Consulting Unavailable Paintsil, [place] Consulting Unavailable Malys, Sofy Attending Unavailable Malys, Sofy Primary Care Unavailable Angelique, [place] Attending Unavailable Ramiro, Issac Admitting Unavailable Angelique, Yamil Attending Unavailable Malys, Sofy Primary Care Unavailable Angelique, Yamil Consulting Unavailable Edwar, Amadou Consulting Unavailable Koram, Nicki Nisa Consulting Unavailable Angelique, [place] Attending Unavailable PROBLEMS PROBLEMS DATE TYPE CONDITION / CODE ATTENDING STATUS SOURCE 10/24/2018 Unknown E03.9 - Malys, Sofy Active [facility] Hypothyroidism, Community unspecified / Hospital E03.9(ICD-10) Repository 10/24/2018 Unknown R00.0 - Tachycardia, Malys, Sofy Active [facility] unspecified / Community R00.0(ICD-10) Hospital Repository 10/24/2018 Unknown E16.2 - Hypoglycemia, Malys, Sofy Active [facility] unspecified / Community E16.2(ICD-10) Hospital Repository 10/24/2018 Unknown E87.6 - Hypokalemia / MalSofy weiss Active [facility] E87.6(ICD-10) [facility] Repository 10/24/2018 Unknown R53.83 - Other fatigue MalSofy weiss Active [facility] / R53.83(ICD-10) [facility] Repository 10/24/2018 Unknown E53.8 - Deficiency of MalSofy weiss Active [facility] other specified B Community group vitamins / Hospital E53.8(ICD-10) Repository 10/08/2018 Unknown I21.4 - Non-ST MalSofy weiss Active [facility] elevation (NSTEMI) [facility] myocardial infarction Hospital / I21.4(ICD-10) Repository 07/10/2018 Unknown Z23 - Encounter for Pat, Active [facility] immunization / [facility] Community Z23(ICD-10) Hospital Repository 07/18/2018 Unknown J44.9 - Chronic EdwarAmadou moody Active [facility] obstructive pulmonary Community disease, unspecified / Hospital J44.9(ICD-10) Repository 07/19/2018 Unknown R07.9 - Chest pain, Angelique, [place] Active [facility] unspecified / Community R07.9(ICD-10) Hospital Repository 08/07/2018 Unknown R30.0 - Dysuria / MalysSofy Active [facility] R30.0(ICD-10) [facility] Repository 05/08/2018 Unknown J14 - Pneumonia due to Amadou Vann Active [facility] Hemophilus influenzae Community / J14(ICD-10) Hospital Repository 05/08/2018 Unknown J96.21 - Acute and Edwar, Amadou Active [facility] chronic respiratory Community failure with hypoxia / Hospital J96.21(ICD-10) Repository 05/08/2018 Unknown J96.22 - Acute and Edwar, Amadou Active [facility] chronic respiratory Community failure with Hospital hypercapnia / Repository J96.22(ICD-10) 05/08/2018 Unknown I47.1 - Edwar, Amadou Active [facility] Supraventricular Community tachycardia / Hospital I47.1(ICD-10) Repository 05/08/2018 Unknown A41.9 - Sepsis, Amadou Vann Active [facility] unspecified organism / Community A41.9(ICD-10) Hospital Repository 05/08/2018 Unknown R65.20 - Severe sepsis EdwarAmadou moody Active [facility] without septic shock / Community R65.20(ICD-10) Hospital Repository 05/08/2018 Unknown G93.41 - Metabolic Amadou Vann Active [facility] encephalopathy / Community G93.41(ICD-10) Hospital Repository 05/08/2018 Unknown F31.9 - Bipolar EdwarAmadou moody Active [facility] disorder, unspecified Community / F31.9(ICD-10) Hospital Repository 05/08/2018 Unknown K21.9 - EdwarAmadou moody Active [facility] Gastro-esophageal Community reflux disease without Hospital esophagitis / Repository K21.9(ICD-10) 02/12/2018 Unknown E87.5 - Hyperkalemia / MalysSofy Active [facility] E87.5(ICD-10) [facility] Repository 12/13/2017 Unknown G47.10 - Hypersomnia, Ifeoma Quispe, Active [facility] unspecified / D.O. Community G47.10(ICD-10) Hospital Repository 12/13/2017 Unknown F17.200 - Nicotine Ifeoma Quispe, Active [facility] dependence, D.O. Community unspecified, Hospital uncomplicated / Repository F17.200(ICD-10) 11/07/2017 Unknown S61.211D - Laceration Malys, Sofy Active [facility] without foreign body Community of left index finger Hospital without damage to Repository nail, subsequent encounter / S61.211D(ICD-10) PROCEDURES PROCEDURES No Procedure Records FoundRESULTS RESULTS CBC W/DIFF, AUTOMATED Collected: 10/23/2018 Status: F Source: [facility] 4:03 PM [facility] REPOSITORY TYPE CODE TESTS RESULT OUT OF RANGE REFERENCE UNITS LAB L100.1000 4.4-11.0 K/mm3 Normal WBC 5.9 LAB L100.1200 4.2-5.4 M/mm3 Low RBC 4.19 LAB L100.1300 12.0-15.0 g/dl Normal HGB 12.6 LAB L100.1400 37-47 % Normal HCT 38.8 LAB L100.1500 81-99 fL Normal MCV 92.6 LAB L100.1600 27.0-32.0 pg Normal MCH 30.1 LAB L100.1700 32-36 g/gl Normal MCHC 32.5 LAB L100.1810 11.6-14.6 % Normal RDW CV 12.8 LAB L100.1820 35.1-43.9 fl Normal RDW SD 43.2 LAB L100.1900 150-450 K/mm3 Normal PLT 238 LAB L100.2000 6.2-12.0 fl Normal MPV 11.5 LAB L100.2100 47-70 % Low NEUT% 43.8 LAB L100.2200 19-41 % High LY% 45.0 LAB L100.2300 0-10 % Normal MONO% 7.4 LAB L100.2400 0-5 % Normal EO% 2.7 LAB L100.2500 0-1 % Normal BASO% 0.9 LAB L100.2550 0.0-0.9 % Normal IM GRAN % 0.200 Result Comment: IG% - Immature Granulocytes (promyelocytes, myelocytes and metamyelocytes) > 1% indicates that a LEFT SHIFT is Present. LAB L100.2620 2.0-7.7 X10 3/uL Normal Absolute Neut 2.6 LAB L100.2720 0.83-4.51 X10 3/ul Normal Absolute Lymph 2.63 Performed By: #### L100.0100 #### [facility] [address] [place], [address] COMPREHENSIVE METABOLIC Collected: 10/23/2018 Status: F Source: [facility] 4:[address] [facility] REPOSITORY TYPE CODE TESTS RESULT OUT OF RANGE REFERENCE UNITS LAB L501.0100 74-106 mg/dL Low GLU 73 Result Comment: Please note revised GLUCOSE reference range effective 2017. LAB L501.1000 7-18 mg/dL High BUN 23 LAB L501.1100 0.55-1.02 mg/dL Normal CREAT,SERUM 0.78 Result Comment: The validity of the calculated GFR AND GFRAA in patients over 70 years has not been determined. Clinical correlation is essential. LAB L501.1110 >60 mL/min Normal EST GFR 82 Result Comment: Non- GFR Calc LAB L501.1115 >60 mL/min Normal EST GFR - AA 100 Result Comment: GFR Calc LAB L501.1300 10-20 RATIO High BUN/CRE 29.5 LAB L501.1500 6.4-8.2 g/dL T Normal PROT 7.6 LAB L501.1800 3.2-5.0 g/dL Normal ALB 4.0 LAB L501.1950 2.2-4.2 g/dL Normal GLOB 3.6 LAB L501.2000 0.9-2.4 RATIO Normal A/G 1.1 LAB L501.2200 8.5-10.1 mg/dL Low CA 8.1 LAB L501.4100 15-37 U/L Normal AST 32 LAB L501.4305 45-117 U/L Normal ALK P 108 LAB L501.4405 13-56 U/L Normal ALT 30 LAB L501.4600 0.20-1.00 mg/dL T Normal BILI 0.20 LAB L501.5300 136-145 mmol/L NA Normal 141 LAB L501.5600 3.5-5.1 mmol/L K Normal 3.8 LAB L501.5900 98-107 mmol/L CL Normal 105 LAB L501.6100 21.0-32.0 mmol/L Normal CO2 28.0 LAB L501.6200 5-15 Normal GAP 8 Performed By: #### L500.4050, L501.61996, L501.9520, L503.6150, L506.0400 #### [facility] [address] [facility] [address] [place], [place], [address] FREE T3 Collected: 10/23/2018 Status: F Source: [facility] 4:[address] [facility] REPOSITORY TYPE CODE TESTS RESULT OUT OF RANGE REFERENCE UNITS LAB L501.43525 2.18-3.98 pg/mL Normal FREE T3 2.5 Performed By: #### L500.4050, L501.38153, L501.9520, L503.6150, L506.0400 #### [facility] [address] [place], [address] THYROID STIM HORMONE Collected: 10/23/2018 Status: F Source: [place] [facility]) 4:[address] [facility] REPOSITORY TYPE CODE TESTS RESULT OUT OF RANGE REFERENCE UNITS LAB L501.9520 0.358-3.74 uIU/mL Normal TSH 2.40 Performed By: #### L500.4050, L501.50965, L501.9520, L503.6150, L506.0400 #### [facility] [address] [place], [address] IRON Collected: 10/23/2018 Status: F Source: [facility] 4:[address] [facility] REPOSITORY TYPE CODE TESTS RESULT OUT OF RANGE REFERENCE UNITS LAB L503.6150 50-170 ug/dL Normal IRON 118 Performed By: #### L500.4050, L501.88166, L501.9520, L503.6150, L506.0400 #### [facility] [address] [place], [address] T4 FREE DIRECT Collected: 10/23/2018 Status: F Source: [facility] 4:[address] [facility] REPOSITORY TYPE CODE TESTS RESULT OUT OF RANGE REFERENCE UNITS LAB L506.0400 0.76-1.46 ng/dL Normal T4 FREE 0.84 DIRECT Performed By: #### L500.4050, L501.24335, L501.9520, L503.6150, L506.0400 #### [facility] [address] [place], [address] VITAMIN B12 Collected: 10/23/2018 Status: F Source: [facility] 4:[address] [facility] REPOSITORY TYPE CODE TESTS RESULT OUT OF RANGE REFERENCE UNITS LAB L503.0105 211-911 pg/mL Normal Vitamin B12 529 Performed By: #### L503.0105 #### [facility] [address] [place], [address] 12 LEAD ELECTROCARDIOGRAM Observed: 09/06/2018 Status: F Source: [facility] 9:[address] [facility] REPOSITORY [facility] Cardiovascular Services [address] [place] [address] 12 Lead EKG 08/24/18 1611 MR#: [id number] Acct: [id number] Name: ALEXEI FOWLER Rep #: [id number] : 1965 53 From: Yamil Merino MD Attending Dr: Status: DEP ER Ordering Dr: Bijan Mo DO Date: 08/24/18 Location: ED Sex: F C Admitted: Test Reason : Blood Pressure : / mmHG Vent. Rate : 055 BPM Atrial Rate : 055 BPM P-R Int : 100 ms QRS Dur : 070 ms QT Int : 442 ms P-R-T Axes : 074 046 057 degrees QTc Int : 422 ms Sinus bradycardia with short NC Otherwise normal ECG Confirmed by YAMIL MERINO MD ([id number]), editor book LURDES CORADO ([id number]) on 08/28/2018 11:55:22 AM Referred By: Sofy Richter Confirmed By:YAMIL MERINO MD 08/28/18 1155 Date Yamil Merino MD CC: Sofy Richter DO; Bijan Doe EMERGENCY DEPARTMENT Observed: 08/24/2018 Status: F Source: [facility] SUMMARY 5:[address] [facility] REPOSITORY [facility] Medical Records Department [address] [place] [address] Emergency Department Summary 08/24/18 1554 MR#: [id number] Acct: [id number] Name: ALEXEI FOWLER Rep #: [id number] : 1965 53 From: Bijan Lucia PCP: Sofy Richter DO Status: REG ER - ER Visit Summary Date of Service: 08/24/18 Chief Complaint: Back pain History of Present Illness: The patient is a 53 F nontraumatic mid back pain since yesterday states the pain wraps around to her front of her abdomen to the epigastrium bilaterally. No nausea or vomiting. No diarrhea. No urinary symptoms. States this morning has some chest tightness. Nonproductive cough. Quit smoking 5 months ago. States in April hospitalized for severe pneumonia with an NSTEMI catheterization reported 50- 70% circumflex lesion with no intervention. Followed by Dr. Merino. She does take baby aspirin, taken this morning. Denies diabetes history of hypercholesterolemia. No fever, chills, sweats. Denies history of similar. States since her [place] has been doing cardiac rehab 3 times a week using hand bicycling. Pain is worse with movement. States cannot tolerate Tylenol able to tolerate ibuprofen. States given Toradol in the past. Denies history of gastric ulcers. She is on reflux medications. History of appendectomy and cholecystectomy. Physical Examination: General: Alert and oriented 3, no acute distress HEENT: Normocephalic, atraumatic. Moist mucosa membranes Neck: supple, nontender. Cardiovascular: Regular rate and rhythm, no murmurs Respiratory: Normal breath sounds, symmetric, no distress Abdomen: Soft, nontender, nondistended. Negative Kothari's McBurney's tenderness. Back: There is midline tenderness mid back at T10-T11 with no step-offs. Straight leg test was negative bilaterally. Extremities: Nontender, no edema, pulses intact 4 Neuro: no focal neurological deficits. Test Results: EKG sinus rate of [address] or T wave changes. Hemoglobin 0.6. White count 4.8. Creatinine 0.64. Lipase 114. Liver enzymes normal troponin 0 0.015. Chest x-ray negative. Emergency Department Course and Treatment: Patient on back pain radiating to the front. Patient's cardiac history I did check an EKG no cardiac workup that was negative. Abdominal labs are all negative. She given Toradol pain went down to the 5 on reevaluation discussion with the patient with her cardiac rehab, likely more musculoskeletal. She did have a T9 vertebrae that was rotated right side bend right knee extended. Discussed somatic dysfunction. Discussed with patient performing osteopathic manipulation for which she agreed. Performed HVLA of the specific region with full improvement of symptoms. Patient will monitor symptoms follow with PCP. All questions were answered. Treatment Plan: [] Disposition: Discharge Impression: 1. Atypical chest pain 2. Somatic dysfunction of thoracic spine status post HVLA This note was generated with [employer] dictation software. It may contain incorrect words, spelling, and punctuation that were not noted in review of the chart prior to signing ED Disposition - Plan for ED Patient: Disposition: Home or Assisted Living Chief Complaint: Back Diagnosis: Atypical chest pain, Somatic dysfunction of spine, thoracic Instructions: ED Chest Pain NonCardiac, Relieving Back Pain Referrals: Sofy Richter DO [Primary Care Provider] - 3-5 Days Additional Instructions: s/p HVLA thoracic spine with improvement. Follow up with your doctor. What to do if you have Problems For any increased pain, shortness of breath, bleeding, nausea or vomiting, chest pain, or any unexpected problems, contact your Primary Care Provider. Call [employer] [facility] ([phone]) or report to the closest Emergency Room. Call 911 if necessary. 08/24/18 6586 <Electronically signed by Bijan Lucia> Date Bijan Lucia Cosigner Signature (If Indicated): Date CC: Sofy Richter DO CBC W/DIFF, AUTOMATED Collected: 08/24/2018 Status: F Source: [place] 4:[address] [facility] REPOSITORY TYPE CODE TESTS RESULT OUT OF RANGE REFERENCE UNITS LAB L100.1000 4.4-11.0 K/mm3 Normal WBC 4.8 LAB L100.1200 4.2-5.4 M/mm3 Low RBC 3.80 LAB L100.1300 12.0-15.0 g/dl Low HGB 11.6 LAB L100.1400 37-47 % Low HCT 34.9 LAB L100.1500 81-99 fL Normal MCV 91.8 LAB L100.1600 27.0-32.0 pg Normal MCH 30.5 LAB L100.1700 32-36 g/gl Normal MCHC 33.2 LAB L100.1810 11.6-14.6 % Low RDW CV 11.3 LAB L100.1820 35.1-43.9 fl Normal RDW SD 37.4 LAB L100.1900 150-450 K/mm3 Normal PLT 162 LAB L100.2000 6.2-12.0 fl Normal MPV 11.5 LAB L100.2100 47-70 % Normal NEUT% 50.9 LAB L100.2200 19-41 % High LY% 41.4 LAB L100.2300 0-10 % Normal MONO% 5.6 LAB L100.2400 0-5 % Normal EO% 1.9 LAB L100.2500 0-1 % Normal BASO% 0.2 LAB L100.2550 0.0-0.9 % Normal IM GRAN % 0.000 Result Comment: IG% - Immature Granulocytes (promyelocytes, myelocytes and metamyelocytes) > 1% indicates that a LEFT SHIFT is Present. LAB L100.2620 2.0-7.7 X10 3/uL Normal Absolute Neut 2.5 LAB L100.2720 0.83-4.51 X10 3/ul Normal Absolute Lymph 2.00 Performed By: #### L100.0100 #### [facility] [address] [place], [place], [address] LIVER PROFILE Collected: 08/24/2018 Status: F Source: [place] 4:[address] [facility] REPOSITORY TYPE CODE TESTS RESULT OUT OF RANGE REFERENCE UNITS LAB L501.1500 6.4-8.2 g/dL Normal T PROT 6.5 LAB L501.1800 3.2-5.0 g/dL Normal ALB 3.4 LAB L501.1950 2.2-4.2 g/dL Normal GLOB 3.1 LAB L501.4100 15-37 U/L Normal AST 26 LAB L501.4305 45-117 U/L Normal ALK P 90 LAB L501.4405 13-56 U/L Normal ALT 31 LAB L501.4600 0.20-1.00 mg/dL Low T BILI < 0.10 LAB L501.4700 0.00-0.30 mg/dL Normal D BILI < 0.05 Performed By: #### L500.3400, L500.4050, L501.4010 #### [facility] [address] [place], [place], [address] COMPREHENSIVE METABOLIC Collected: 08/24/2018 Status: F Source: [facility] 4:05 [facility] REPOSITORY TYPE CODE TESTS RESULT OUT OF RANGE REFERENCE UNITS LAB L501.0100 74-106 mg/dL Normal GLU 90 Result Comment: Please note revised GLUCOSE reference range effective 2017. LAB L501.1000 7-18 mg/dL High BUN 27 LAB L501.1100 0.55-1.02 mg/dL Normal CREAT,SERUM 0.64 Result Comment: The validity of the calculated GFR AND GFRAA in patients over 70 years has not been determined. Clinical correlation is essential. LAB L501.1110 >60 mL/min Normal EST GFR 104 Result Comment: Non- GFR Calc LAB L501.1115 >60 mL/min Normal EST GFR - AA 126 Result Comment: GFR Calc LAB L501.1255 ml/min Normal Estimated CRCL 85.06 LAB L501.1300 10-20 RATIO High BUN/CRE 42.5 LAB L501.2000 0.9-2. RATIO Normal 4 A/G 1.1 LAB L501.2200 8.5-10 mg/dL Low .1 CA 7.8 LAB L501.5300 136-14 mmol/L Normal 5 NA 145 LAB L501.5600 3.5-5. mmol/L Normal 1 K 3.7 LAB L501.5900 98-107 mmol/L High CL 109 LAB L501.6100 21.0-3 mmol/L Normal 2.0 CO2 28.0 LAB L501.6200 5-15 Normal GAP 8 Performed By: #### L500.3400, L500.4050, L501.4010 #### [facility] [address] [place], [place], [id number] TROPONIN-I Collected: 08/24/2018 Status: F Source: [place] 4:[address] [facility] REPOSITORY TYPE CODE TESTS RESULT OUT OF RANGE REFERENCE UNITS LAB L501.4010 <0.045 ng/mL Normal < 0.015 TROPONIN-I Result Comment: TROPONIN-I EXPECTED VALUES <0.045 Negative 0.045 - 0.590 Consistent with Cardiac Damage > OR = 0.600 Critical Value Not every elevated troponin is indicative of [place]. These values should be used with clinical judgement in examining the patient's clinical picture for diagnosis. To establish a diagnosis of [place] versus myocardial injury, there must be a demonstrated rise and/or fall in the troponin values, in addition to ischemic symptoms, EKG changes, new regional wall motion abnormality, and/or angiographical evidence. PLEASE NOTE: REFERENCE RANGES EDITED 18 Performed By: #### L500.3400, L500.4050, L501.4010 #### [facility] [address] [place], [place], [id number] LIPASE Collected: 08/24/2018 Status: F Source: [place] 4:[address] [facility] REPOSITORY TYPE CODE TESTS RESULT OUT OF RANGE REFERENCE UNITS LAB L501.2450 73-393 U/L Normal LIPASE 114 Performed By: #### L501.2450 #### [facility] [address] [place], [address] CHEST PA AND LATERAL Observed: 08/24/2018 Status: F Source: [place] 3:[address] [facility] REPOSITORY [facility] Imaging Services [address] [place] [address] Chest PA and Lateral MR#: [id number] Acct: [id number] Name: ALEXEI FOWLER Rep #: [id number] : 1965 F 53 From: Eduardo Bae MD PCP: Sofy Richter DO Status: REG ER Study: Chest PA and Lateral Date of Exam: 08/24/18 Exam# [id number] Ordering Dr: Bijan Mo DO STUDY: X-RAY CHEST REASON FOR EXAM: Female, 53 years old. Cough. TECHNIQUE: Frontal and lateral views of the chest. COMPARISON: 06/21/2018. FINDINGS: The lungs are clear and expanded. There is no demonstrated pleural abnormality. Normal size heart. Normal mediastinum and ashli. Normal visualized pulmonary arteries. Normal visualized aortic arch and descending thoracic aorta. Normal visualized thoracic spine. Normal visualized ribs, clavicles, and shoulders. There is no demonstrated abnormality of the visualized soft tissue structures of the upper abdomen. RAD/Chest PA and Lateral IMPRESSION: Normal x-ray examination of the chest. Electronically Signed: Eduardo Bae MD at 17:06 EST , Service support , CC: Sofy Richter DO; Bijan Mo Lieutenant Colonel: Signed CR - HISTORY AND Observed: 08/09/2018 Status: F Source: [place] PHYSICAL 8:[address] 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 SOFY RICHTER Primary Diagnosis: [place] (NSTEMI) - History of Present Cardiac Event Onset Date: Enter Onset Date of cardiac illnesses in Comment field below Acute Myocardial Infarction within 12 months:: Yes - NSTEMI Type of Symptoms:: SHORT OF BREATH, FELT COULDN'T GET MY BREATH. Interventions with present event:: [place] ER, stess test normal, heart cath, EKG, echocardiogram - Medications Home Medications: Ambulatory Orders Medication Instructions Recorded Ranitidine [Zantac] 150 mg PO DAILY 02/27/16 levothyroxine 125 mcg tablet 125 mcg PO DAILY 11/08/17 - Allergies Allergies/Adverse Reactions: Allergies amoxicillin Allergy (Severe, Verified 07/10/18 06:43) Shortness of breath AND HIVES azithromycin Allergy (Severe, Verified 07/10/18 06:43) Shortness of breath AND HIVES clindamycin Allergy (Severe, Verified 07/10/18 06:43) Shortness of breath AND HIVES doxycycline Allergy (Severe, Verified 07/10/18 06:43) Shortness of breath AND HIVES erythromycin lactobionate [From Erythrocin] Allergy (Severe, Verified 07/10/18 06:43) Shortness of breath AND HIVES Penicillins Allergy (Severe, Verified 07/10/18 06:43) Shortness of breath AND HIVES Sulfa (Sulfonamide Antibiotics) Allergy (Severe, Verified 07/10/18 06:43) Shortness of breath AND HIVES sulfamethoxazole [From Bactrim] Allergy (Severe, Verified 07/10/18 06:43) Shortness of breath AND HIVES trimethoprim [From Bactrim] Allergy (Severe, Verified 07/10/18 06:43) Shortness of breath AND HIVES tramadol Allergy (Verified 07/10/18 06:43) Unknown codeine [From Tylenol-Codeine #3] Adverse Reaction (Verified 07/10/18 06:43) Nausea/Vom/Diarrhea metoprolol Adverse Reaction (Verified 07/10/18 06:43) hypotension terbutaline [From Brethine] Adverse Reaction (Verified 07/10/18 06:43) Other ANITHISTAMINES Allergy (Uncoded 07/10/18 06:43) Unknown - Sleep Disorder Evaluation Hx of Sleep Apnea: No Do you snore loudly (louder than talking or can be heard through closed doors)?: Yes - nocturnal oxygen Do you often feel tired/ fatigued/ sleepy during daytime?: Yes Has anyone observed you stop breathing during sleep?: No History of Hypertension (for STOP score): Yes STOP Results: Positive Advanced Directives - Advanced Directives Power of Senior Clinical Study Manager: No Living Will: No Advance Directives Information Provided: Yes Advance Directives on File: No DNR Order?:: No - MOLST See MOLST form: No Past Medical History - Past Medical Illness Medical History: Past Medical History (Last Reviewed 07/10/18 @ 10:56 by Sarah Pat NP-C) Acute diastolic (congestive) heart failure (Chronic) Onset Date: 04/18/18 I50.31 Atherosclerosis of coronary artery of [place] heart without angina pectoris (Chronic) I25.10 Moderate coronary artery disease involving the mid circumflex artery and distal circumflex artery with preserved left ventricular ejection fraction. 04/18/18 Paroxysmal supraventricular tachycardia (Chronic) I47.1 Nonrheumatic mitral valve prolapse (Chronic) I34.1 Acute on chronic respiratory failure with hypoxia and hypercapnia (Chronic) J96.21, J96.22 NSTEMI (non-ST elevated myocardial infarction) (Resolved) Onset Date: 04/16/18 I21.4 COPD (chronic obstructive pulmonary disease) (Chronic) J44.9 Bipolar disorder F31.9 Chronic back pain M54.9, G89.29 Diverticula of colon K57.30 GERD (gastroesophageal reflux disease) K21.9 Hypersomnia, unspecified G47.10 Hypothyroidism E03.9 TMJ (temporomandibular joint syndrome) M26.609 Hypoglycemia (Resolved) E16.2 Hypokalemia (Resolved) E87.6 Urinary incontinence (Inactive) R32 - Past Surgical History Surgical History: Past Surgical History (Last Reviewed 07/10/18 @ 10:56 by LALITHA Neal) History of appendectomy (Resolved) Z98.890, Z90.49 History of section (Resolved) Z98.891 History of cholecystectomy (Resolved) Z98.890, Z90.49 History of dilatation and curettage (Resolved) Z98.890 History of left heart catheterization Onset Date: 04/18/18 Z98.890 Moderate coronary artery disease involving the mid circumflex artery and distal circumflex artery with preserved left ventricular ejection fraction. History of left oophorectomy (Resolved) Z98.890, Z90.721 Surgical History: - - Emergency 1993 Left ovary follapian tube and ovary removed 1998 Throat biopsy: benign 1999 Hydrothermal ablation and D AND C 2005 Emergency appendectomy 2008 Cholecystectomy lap 2002 - Family History Summary Family History: Family History (Last Reviewed 07/10/18 @ 10:56 by LALITHA Neal) Mother Hypertension Pulmonary embolism Psychiatric care Father Lung cancer Grandmother Breast cancer Sister Asthma Seizures Psychiatric care Depression Son Depression Psychiatric care ADHD Daughter Depression Psychiatric care Bipolar 1 disorder Social History - Smoking History Smoking Status: Former smoker Years Smokin Packs Smoked per Day: 2 Hx Smoking Cessation Date: 07/07/2018 Hx Tobacco Use: Yes Hx Smoking Exposure: Yes - both parents smoked while I was a child. 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 Left click = Reports ([place]) Review of Present Symptoms: Reports: Fatigue - some, Appetite - Special Diet - cardiac diet 1800 calorie, low salt low fat. Denies: Shortness of Breath at Rest, Shortness of Breath with Exertion, Dizziness/Lightheadedness, Appetite - Normal, Sleep - Normal - insomnia, Sexual Changes - Pain Is Patient Pain Free?: Yes Pain Location: none Pain Level: 0/10 Risk Factor Assessment - Vital Signs Temperature: 98.7 F Respiratory Rate: 16 Pulse Ox: 97 Blood Pressure: 84/50 - Pulse Pulse Rate: 81 Pulse Rhythm: Regular - Hypertension Blood Pressure Sitting - Left Arm: 84/50 - Diabetes Nutrition Referral for Diabetes: No - Obesity Height: 5 ft 3 in Weight:: 133 lb Weight in Pounds: 133.0 lbs Weight Source: Standing Scale Body Mass Index (BMI): 23.6 Nutritional Referral for Obesity: No - Physical Inactivity Physical Inactivity: None - Risk Stratification Risk Guidelines: Lowest Risk: Risk Factor for Smoking, Risk Factor for Dyslipidemia, Risk Factor for Diabetes, Risk Factor for Obesity, Risk Factor for Hypertension - hypotensive, Risk Factor for Sedentary Lifestyle - For Smoking Smoking Risk Guidelines: Smoking Low Risk: None or quit greater than 6 months ago. Smoking Moderate Risk: Smoker or quit 6 months or less ago. Smoking High Risk: Smoker - For Dyslipidemia Dyslipidemia Risk Guidelines: Low Risk: Moderate Risk: High Risk: 15-25% fat 25.1-29% fat >/= 30% fat. <7% sat fat 7-9% sat fat >9% sat fat. <150 mg chol 150-299 mg chol >/= 300 mg chol. LDL <100 LDL 100-129 LDL >/= 130. Chol/HDL ratio <5.0 Chol/HDL ratio 5.0-6.0 Chol/HDL ratio >6.0. Triglycerides <100 Triglycerides 100-149 Triglycerides >/= 150 - For Diabetes Mellitus Diabetes Risk Guidelines: Diabetes Low Risk: HgA1c <6.5% and/or FBG <120. Diabetes Moderate Risk: HgA1c 6.6-7.9% and/or FBG 120- 180. Diabetes High Risk: HgA1c >/= 8% and/or FBG >180 - For Obesity/Overweight Obesity/Overweight Risk Guidelines: Obesity Low Risk: BMI <25.0. Obesity Moderate Risk: BMI 25-29.9. Obesity High Risk: BMI >/= 30.0 - For Hypertension Hypertension Risk Guidelines: Hypertension Low Risk: Systolic <120 and Diastolic <80. Hypertension Moderate Risk: Systolic 120-139 and Diastolic 80-89. Hypertension High Risk: Systolic >/= 140 and Diastolic >/= 90 - For Sedentary Lifestyle Sedentary Lifestyle Risk Guidelines: Sedentary Lifestyle Low Risk: >/= 1,500 kcal/week. Sedentary Lifestyle Moderate Risk: 700-1,499 kcal/week. Sedentary Lifestyle High Risk: < 700 kcal/week - For Depression Depression Risk Guidelines: Depression Low Risk: Not clinically depressed. Depression Moderate Risk: Mildly depressed. Depression High Risk: Clinically depressed - Family History Family History: Family History (Last Reviewed 07/10/18 @ 10:56 by LALITHA Neal) Mother Hypertension Pulmonary embolism Psychiatric care Father Lung cancer Grandmother Breast cancer Sister Asthma Seizures Psychiatric care Depression Son Depression Psychiatric care ADHD Daughter Depression Psychiatric care Bipolar 1 disorder Motivation - Motivation to Participate On a scale of 1 to 10, how prepared are you to commit to attending program?: 8 What do you see as barriers to successfully being able to complete the program?: son's work schedule What do you see as the benefits of succesfully completing the program? In other words, what do you hope to get out of participating in the program?: learn more about heart health get heart stronger Are there issues you are dealing with that will interfere with completing the program?: none Do you have a spouse or signficant other, family or friends who will help support you to complete the program?: yes 08/08/18 1103 <Electronically signed by Juan Guo CRT, RCP, ADDIE> Date Juan Guo CRT, RCP, BS Outcome assessment reviewed. Exercise plan approved as documented. Treatment plan and goals support patient needs/abilities. Continue with current plan. I certify the patient demonstrates improvement and remains willing and capable of participation. the patient continues to benefit from cardiac rehab services/training. The patient may continue at current intensity, endurance and modality and progress per protocol. 08/09/18 0823 <Electronically signed by Yamil Merino MD> Cosigner Signature: Date Angelique,[place] MD CC: Signed PULMONARY VISIT REPORT Observed: 07/11/2018 Status: F Source: [place] 10:[address] [facility] REPOSITORY [facility] [address] [place] [address] OFFICE VISIT Date of Service: 07/10/18 MR#: [id number] Acct: [id number] Name: ALEXEI FOWLER Rep #: [id number] : 1965 Provider: Sarah Pat Age/Sex: 53/F Location: [facility] Status: Signed Assessment AND Plan 1. Asthma-COPD overlap syndrome J44.9 Plan Discontinue Symbicort and Spiriva, because she hasn't been using them and does not notice improvement with them. Continue to use rescue inhaler when needed. If she uses it more than 2-3 times/week may need maintenance medication. Follow-up with Dr. Quispe in 6 months. Influenza vaccine today. Call the office if dyspnea/shortness of breath returns. 2. Respiratory failure, acute J96.00 Plan Improved. Ruled out need for supplemental oxygen with ambulation. Will obtain nocturnal oximetry. If normal, will discontinue supplemental oxygen. Follow-up with Dr. Quispe in 6 months. Call the office if current symptoms or dyspnea/shortness of breath increase 3. Nicotine abuse Z72.0 Plan Continue smoking cessation program. Identify potential smoking triggers and psychologically prepare prior to activity. Call the office for assistance with smoking cessation if required and nicotine use resumes. Plan Detail Other Orders Orders: Other Medications Discontinued: Fluad 2017- 65yr up(PF)45 mcg(15 mcgx3)/0.5 mL intramus0.5 mL IM ONCE 0.5 mL 0RF NS Z23 cular syringe (flu vac 2018 [id number](PF)) Discont inued Reason: Order Changed Follow Up 6 Months (DMB) HPI Test Results: Chief Complaint: cough HPI Comments Details: 53-year-old female appears older than stated age. Cachetic in appearance. States that she is feeling well today. She denies shortness of breath at rest or with exertion. Alexei does have a cough that occurs mostly during the morning hours after waking from sleep. It is strong, barking cough, that produces thick green-brown sputum. She has not need to go to the ED, hospital or Urgent care since discharge from rehab in April. She has not required steroids or antibiotics since that time. She does not have fever, or chills. She would like to know if she can return it oxygen to the vendor because she does not use it, and she does'nt require it any longer since her last hospitalization and rehab. Alexei states that she walks more than 6000 steps daily, and does not become short of breath. She has not smoked since her last inpatient admission back in April. Pulmonary function test completed on July 03, 2018 interpreted as showing partially reversible moderate large airway obstructive [place] defect with asymmetric reduction in diffusing capacity, resulting in air trapping with hyperinflation and consistent with a COPD/asthma overlap syndrome. FVC 95% predicted, FEV1 69% of predicted, FEV1/FVC 57% of predicted, TLC 118% of predicted, RV 152% predicted and DLCO 67% of predicted. It was discussed with the patient that her disease did have the potential for exacerbation should she resume smoking, and not follow treatment plan with inhaler treatment. She should remember to call the office for an appointment if any of her current symptoms worsen, especially during the cold weather and flu season. Flu vaccine was also recommended. Walking oximetry completed on June 05, 2018 shows that the patient was able to ambulate 1125 feet over the course of 6 minutes. She did not become hypoxic and does not require supplemental oxygen at this time. Intake Vital Signs07/10/18 Height 5 ft 4 in 07/10/18 Weight: 134 lb Intake Visit Reasons: Test Results DME Vendor: [employer] Accompanied by: Self Allergies amoxicillin Allergy (Severe, Verified 07/10/18 06:43) Shortness of breath azithromycin Allergy (Severe, Verified 07/10/18 06:43) Shortness of breath clindamycin Allergy (Severe, Verified 07/10/18 06:43) Shortness of breath doxycycline Allergy (Severe, Verified 07/10/18 06:43) Shortness of breath erythromycin lactobionate [From Erythrocin] Allergy (Severe, Verified 07/10/18 06:43) Shortness of breath Penicillins Allergy (Severe, Verified 07/10/18 06:43) Shortness of breath Sulfa (Sulfonamide Antibiotics) Allergy (Severe, Verified 07/10/18 06:43) Shortness of breath sulfamethoxazole [From Bactrim] Allergy (Severe, Verified 07/10/18 06:43) Shortness of breath trimethoprim [From Bactrim] Allergy (Severe, Verified 07/10/18 06:43) Shortness of breath tramadol Allergy (Verified 07/10/18 06:43) Unknown codeine [From Tylenol-Codeine #3] Adverse Reaction (Verified 07/10/18 06:43) Nausea/Vom/Diarrhea metoprolol Adverse Reaction (Verified 07/10/18 06:43) hypotension terbutaline [From Brethine] Adverse Reaction (Verified 07/10/18 06:43) Other ANITHISTAMINES Allergy (Uncoded 07/10/18 06:43) Unknown Medications Ranitidine [Zantac] 150 mg PO DAILY 02/27/16 [History Confirmed 07/10/18] levothyroxine 125 mcg tablet 125 mcg PO DAILY 11/08/17 [History Confirmed 07/10/18] Albuterol Inhaler [Ventolin Hfa] 1 - 2 puff INHALATION Q4H PRN PRN 04/15/18 [History Confirmed 07/10/18] Fluoxetine [Prozac] 20 mg PO QHS 04/15/18 [History Confirmed 07/10/18] Lamotrigine [Lamotrigine Odt] 200 mg PO BID 04/15/18 [History Confirmed 07/10/18] Aspirin [Aspirin, Baby] 81 mg PO DAILY tab.chew 04/21/18 [Rx Confirmed 07/10/18] Nicotine [Nicoderm] 14 mg TRANSDERM. DAILY patch 04/21/18 [Rx Confirmed 07/10/18] rosuvastatin 40 mg tablet 40 mg PO QDAY 05/24/18 [History Confirmed 07/10/18] Atenolol [Tenormin (beta doretha)] 25 mg PO DAILY 05/27/18 [History Confirmed 07/10/18] Diazepam [Valium] 5 mg PO BID PRN PRN 06/22/18 [History Confirmed 07/10/18] Fluoxetine [Prozac] 40 mg PO DAILY 06/22/18 [History Confirmed 07/10/18] Fluticasone Propionate 2 spray INTRANASAL DAILY PRN 06/22/18 [History Confirmed 07/10/18] [facility] Medical History Acute diastolic (congestive) heart failure (Chronic 04/18/18) Atherosclerosis of coronary artery of [place] heart without angina pectoris (Chronic) Paroxysmal supraventricular tachycardia (Chronic) Nonrheumatic mitral valve prolapse (Chronic) Acute on chronic respiratory failure with hypoxia and hypercapnia (Chronic) NSTEMI (non-ST elevated myocardial infarction) (Resolved 04/16/18) COPD (chronic obstructive pulmonary disease) (Chronic) Bipolar disorder (Chronic) Chronic back pain (Chronic) Diverticula of colon (Chronic) GERD (gastroesophageal reflux disease) (Chronic) Hypersomnia, unspecified (Chronic) Hypothyroidism (Chronic) TMJ (temporomandibular joint syndrome) (Chronic) Hypoglycemia (Resolved) Hypokalemia (Resolved) Urinary incontinence (Inactive) Surgical History History of appendectomy (Resolved) History of section (Resolved) History of cholecystectomy (Resolved) History of dilatation and curettage (Resolved) History of left heart catheterization (Resolved 04/18/18) History of left oophorectomy (Resolved) Family History Mother Hypertension Pulmonary embolism Psychiatric care Father Lung cancer Grandmother Breast cancer Sister Asthma Seizures Psychiatric care Depression Son Depression Psychiatric care ADHD Daughter Depression Psychiatric care Bipolar 1 disorder Social History Smoking Status: Former smoker second hand exposure: Yes substance use type: does not use Review of Systems Const CONSTITUTIONAL: Negative anorexia, body ache, chills, daytime sleepiness, fever(s), night sweats, oral thrush, stops breathing during sleep, weight loss, sleeping in chair, fatigue, weight loss, weight gain, frequent colds, seasonal allergies, other, headache(s) or orthopnea EETM Ear Nose Throat Mouth: Positive nasal congestion and hearing normal; negative hoarseness, dry mouth in morning, change in vision, itchy eyes, eye pain, swallowing Difficulty, ear pain, headache(s), mouth pain, nasal discharge, sinus pain, sinus pressure, sore throat, other, hard of hearing, nose bleed or post nasal drip Cardio Cardiovascular: Negative chest pain, chest pain at rest, chest pain with activity, irregular heart rhythm, edema, shortness of breath when lying down, palpitations, other or murmur Resp Respiratory: Positive as per HPI and cough cough: Positive productive (occ) color: Positive thick and green; negative shortness of breath, pain with cough, wheezing, chest congestion, chest tightness, pain on inspiration, inhalers, increase use of rescue inhalers, snoring, apnea or other Gastro Gastrointestional: Negative bloody stools, change in appetite, difficulty swallowing, reflux, hematemesis, melena stool, loose stool, constipation or other Genitourinary: Negative blood in urine, nocturia, pain with urination or other Musc Musculoskeletal: Negative body pain, back pain, neck pain or other Skin/Breast Skin/Breast: Negative dry skin, itching, unusual bruising, breast lump, other or rash Neuro Neurological: Negative restless legs, confusion, weakness or other Psych Psychocological: Negative abnormal sleep pattern, anxiety, thoughts of hurting self/others, hopelessness or other Lymph Lymphatic: Negative easy bleeding, easy bruising, other or swollen lymph nodes Exam Const Constitutional: Positive cooperative, in no acute respiratory distress, appears older than stated age, conversant and poor hygiene Head Head: Positive normocephalic and atraumatic; negative cyanosis of lips/distal nose, frontal sinus tenderness or maxillary sinus tenderness Eyes Eye: Positive clear conjunctiva Ears Ear: Positive hearing normal and external ears normal; negative hard of hearing Nose Nose: Positive external nose normal; negative epistaxis, no nasal discharge, clear nasal discharge or purulent nasal discharge Mouth Mouth: Positive oral mucosae normal and poor dentition; negative post nasal drip or oral thrush present Neck Neck: Positive normal visual inspection and full ROM Chest Wall Chest: Positive normal inspection of the chest and symmetric chest movement Resp lung sounds: Positive wheezes wheezing: Positive bilateral, wheeze present on forced exhalation and normal expiratory time; negative increased work of breathing or use of accessory muscles Cardio Cardiac: Positive regular rate and regular rhythm; negative murmur GI GI: Positive normal to inspection and normal bowel sounds; negative epigastric tenderness Genitourinary: Positive deferred Musc Musculoskeletal: Positive steady gait and ROM normal; negative using an assistive device for ambulation Skin Pulmonary Skin Exam: Positive intact; negative rash, lesion or ulcers Pulses Pulse: Yes pulses normal x4 extremities Extremities Extremities: Yes capillary refill normal, No clubbing, No cyanosis, No edema Neuro Neurologic: Yes conversant, Yes cooperative, Yes normal concentration Lymph Lymphatic: No lymphadenopathy, No tenderness Psych Appearance: Positive disheveled Mental Status: Positive mental status grossly normal Mood: Positive manic mood Affect: Positive animated Office Meds Flucelvax Quad 5422-4685 (PF) Performing Provider: LALITHA Neal Administered by: Ellyn Jacobo on 07/10/18 11:41 Dose Route Admin Location Lot Number Expiration Date [employer] 0.5 mL IM L deltoid [id number] 04/06/19 85428-726-74 SEQIRUS Coding Level of Care Code Off vis,est,level 3 Diagnoses Asthma-COPD overlap syndrome J44.9 Respiratory failure, acute J96.00 Nicotine abuse Z72.0 07/11/18 1013 <Electronically signed by Sarah DOTY> Date Sarah DOTY Cosigner Signature: Date (if applicable) CC: Sofy Richter DO PULMONARY FUNCTION Observed: 07/03/2018 Status: F Source: [place] REPORT COMP 3:[address] [facility] REPOSITORY [facility] Pulmonary Services/Neurology [address] [place] [address] MR#: [id number] Acct: [id number] Name: ALEXEI FOWLER Rep #: [id number] : 1965 53 From: Amadou Vann MD Referring Dr: Sarah Pat NP Status: REG CLI Ordering Dr: Date: Location: N Sex: F C COMPLETE PULMONARY FUNCTION TEST INTERPRETATION Brief HPI: Patient is a 53 year old female, currently under the care of Sarah Pat, who presents to [facility] for complete pulmonary function tests secondary to diagnosis of COPD. Respiratory therapist reports good effort and reproducible results. Interpretation: Forced expiration spirometry shows a moderate large airways obstructive ventilatory defect with an FEV1 of 69% predicted. There is a significant bronchodilator response in FEV1 by ATS criteria. Spirograms are of good quality and plateau slowly, indicating slowly emptying areas of the lungs. The respiratory flow volume loop shows decreased expiratory flow rates at all lung volumes consistent with airway obstruction. Lung volumes by body plethysmography show an elevated total lung capacity at 5.6 L, 118% predicted. FRC and RV are elevated out of proportion. Lung volume measurements are consistent with hyperinflation and air-trapping. Diffusion capacity by carbon monoxide is at the lower limit of normal at 67% predicted. The airway resistance is elevated. Compared to previous pulmonary function tests from 12/16/2013, there has been a significant worsening in FEV1 by 26%. Impression: Partially reversible moderate large airways obstructive ventilatory defect with a symmetric reduction in diffusing capacity, resulting in air trapping with hyperinflation and consistent with a COPD/asthma overlap syndrome 07/03/186 <Electronically signed by Amadou Vann MD> Date Amadou Vann MD CC: Amadou Vann MD; Sarah Pat; Sofy Richter DO Date Dictated: 07/03/181511 Date Transcribed: 07/03/181511 Lieutenant Colonel: LINO Signed BASIC METABOLIC Collected: 07/03/2018 Status: F Source: [place] PROFILE (BMP) 2:[address] [facility] REPOSITORY Order Comment: Send Results To: Sofy Richter Reason for Laboratory Test Hypernatremia, hypokalemia TYPE CODE TESTS RESULT OUT OF RANGE REFERENCE UNITS LAB L501.0100 74-106 mg/dL Normal GLU 78 Result Comment: Please note revised GLUCOSE reference range effective 2017. LAB L501.1000 7-18 mg/dL High BUN 21 LAB L501.1100 0.55-1.02 mg/dL Normal CREAT,SERUM 0.67 Result Comment: The validity of the calculated GFR AND GFRAA in patients over 70 years has not been determined. Clinical correlation is essential. LAB L501.1110 >60 mL/min Normal EST GFR 98 Result Comment: Non- GFR Calc LAB L501.1115 >60 mL/min Normal EST GFR - AA 118 Result Comment: GFR Calc LAB L501.1300 10-20 RATIO High BUN/CRE 31.2 LAB L501.2200 8.5-10.1 mg/dL CA Normal 8.8 LAB L501.5300 136-145 mmol/L NA Normal 141 LAB L501.5600 3.5-5.1 mmol/L Low K 3.2 LAB L501.5900 98-107 mmol/L CL Normal 102 LAB L501.6100 21.0-32.0 mmol/L Normal CO2 30.0 LAB L501.6200 5-15 Normal GAP 9 Performed By: #### L500.2500 #### [facility] [address] [place], [address] 12 LEAD ELECTROCARDIOGRAM Observed: 06/26/2018 Status: F Source: [place] 3:[address] [facility] REPOSITORY [facility] Cardiovascular Services [address] [place] [address] 12 Lead EKG 06/22/18 0130 MR#: [id number] Acct: [id number] Name: ALEXEI FOWLER Rep #: [id number] : 1965 53 From: Yamil Merino MD Attending Dr: Roby Mcnair M.D. Status: DIS DMITRIY Ordering Dr: Iglesia Arias MD Date: 06/22/18 Location: [facility] Sex: F C Admitted: 06/21/18 Test Reason : CP ADMIT Blood Pressure : / mmHG Vent. Rate : 055 BPM Atrial Rate : 055 BPM P-R Int : 088 ms QRS Dur : 080 ms QT Int : 492 ms P-R-T Axes : 071 058 071 degrees QTc Int : 470 ms Sinus bradycardia with short NC Otherwise normal ECG When compared with ECG of 16-APR-2018 07:37, Vent. rate has decreased BY 38 BPM Confirmed by YAMIL MERINO MD ([id number]), editor book LURDES CORADO ([id number]) on 06/26/2018 3:31:55 PM Referred By: DR CHURCHILL Confirmed By:YAMIL MERINO MD 06/26/18 1531 Date Yamil Merino MD CC: Roby Mcnair M.D.; Iglesia Arias MD; Sofy Richter DO Signed 12 LEAD ELECTROCARDIOGRAM Observed: 06/24/2018 Status: F Source: [place] 3:[address] [facility] REPOSITORY [facility] Cardiovascular Services [address] [place] [address] 12 Lead EKG 06/21/18 2105 MR#: [id number] Acct: [id number] Name: MICHELINE FOWLERYAYA Guevara Rep #: [id number] : 1965 53 From: Yamil Merino MD Attending Dr: Roby Mcnair M.D. Status: DIS DMITRIY Ordering Dr: Joselyn Hall MD Date: 06/21/18 Location: [facility] Sex: F C Admitted: 06/21/18 Test Reason : CHEST PAIN Blood Pressure : / mmHG Vent. Rate : 056 BPM Atrial Rate : 056 BPM P-R Int : 108 ms QRS Dur : 072 ms QT Int : 458 ms P-R-T Axes : 040 050 065 degrees QTc Int : 441 ms Sinus bradycardia with short NC Otherwise normal ECG Confirmed by ANGELIQUE PALMER, YAMIL ([id number]), editor book LURDES CORADO ([id number]) on 06/24/2018 3:24:09 PM Referred By: GERMAIN Confirmed By:YAMIL MERINO MD 06/24/18 1524 Date Yamil Merino MD CC: Joselyn Hall MD; Roby Mcnair M.D.; Sofy Richter DO Signed DISCHARGE SUMMARY Observed: 06/23/2018 Status: F Source: [facility] 8:01 AM [facility] REPOSITORY [facility] Medical Records Department [address] [place] [address] Discharge Summary 06/22/18 1313 MR#: [id number] Acct: [id number] Name: MICHELINE FOWLERYAYA Guevara Rep #: [id number] : 1965 53 From: Alpa DOTY PCP: Sofy Richter DO Status: DIS DMITRIY Y Location: [place] [address] <Alpa Somers - Last Filed: 06/22/18 13:21> Discharge Date and Diagnosis Date of Admission: 06/21/18 Date of Discharge: 06/22/18 - Primary Discharge Diagnosis Active and Suspected Problems (Last Reviewed 06/22/18 @ 06:43 by Iglesia Arias MD) 1. Musculoskeletal chest pain 2. Mild hypokalemia - Secondary Discharge Diagnosis Chronic Problems (Last Reviewed 06/22/18 @ 06:43 by Iglesia Arias MD) Acute diastolic (congestive) heart failure (Chronic 04/18/18) Atherosclerosis of coronary artery of [place] heart without angina pectoris (Chronic) Moderate coronary artery disease involving the mid circumflex artery and distal circumflex artery with preserved left ventricular ejection fraction. 04/18/18 Paroxysmal supraventricular tachycardia (Chronic) Nonrheumatic mitral valve prolapse (Chronic) Acute on chronic respiratory failure with hypoxia and hypercapnia (Chronic) COPD (chronic obstructive pulmonary disease) (Chronic) Hospital Course and Treatment Imaging Results: Diagnostic Data Chest X-Ray 06/21/18 21:40 IMPRESSION: No acute cardiopulmonary pathology Electronically Signed: Matthias Alberts MD at 22:10 EDT , Service support , Operations: None Procedures: Stress test Summary of Care Provided: The patient is a 53 year old F admitted 06/21/2018 due to chest pain. She has a past medical history of non-STEMI, chronic diastolic CHF, CAD, paroxysmal supraventricular tachycardia, chronic respiratory failure with hypoxia and hypercapnia, COPD. Troponin negative. Patient underwent nuclear stress test which was negative for ischemia. Mild hypokalemia, replaced orally. Mild hypernatremia. Repeat BMP in 1 week. Suspect musculoskeletal pain. ACS ruled out. Patient complains of continued left shoulder pain, back pain. Recommended ibuprofen or Tylenol as needed for pain. Chest x-ray showed no acute cardiopulmonary process. Patient with mild hypotension. This appears to be her baseline. Blood pressure in office visit 05/24/2018 84/52. Blood pressure at discharge 99/60. Patient denies shortness of breath, dizziness, lightheadedness. Stable for discharge home. Follow-up with primary care physician in 1 week. Cardiology as scheduled. Pulmonary medicine as scheduled. General: Alert, Oriented x3, Cooperative HEENT: Atraumatic, PERRLA, EOMI, Normocephalic Neck: Supple, No JVD, Negative Carotid Bruits Lungs: Clear to auscultation, diminished Cardiovascular: Regular rate, regular rhythm, no murmur Abdomen: Bowel Sounds Present Extremities: No edema, Capillary Refill Less than 3 Seconds Skin: No rashes, No breakdown Musculoskeletal: No Tenderness to Palpation of Joints or Extremities Neurological: Cranial nerves II-XII grossly intact Psych/Mental Status: Normal Affect, Appropriate Patient seen exam prior to discharge. Physical assessment as noted above. Patient stable for discharge home with follow-up her conditions as noted above. This patient was seen by LALITHA Bangura under the supervision of Dr. Mcnair. Discharge Diet: Low fat/ Low Cholesterol Discharge Activity: Return to Normal Activity Call your doctor if you observe: Shortness of breath, Dizziness, Fainting spells, Chest pain Home Medications: Medications to take at Discharge Ranitidine [Zantac] 150 mg PO DAILY 02/27/16 levothyroxine 125 mcg tablet 125 mcg PO DAILY 11/08/17 Albuterol Inhaler [Ventolin Hfa] 1 - 2 puff INHALATION Q4H PRN PRN 04/15/18 Fluoxetine [Prozac] 20 mg PO QHS 04/15/18 Lamotrigine [Lamotrigine Odt] 200 mg PO BID 04/15/18 Aspirin [Aspirin, Baby] 81 mg PO DAILY tab.chew 04/21/18 Nicotine [Nicoderm] 14 mg TRANSDERM. DAILY patch 04/21/18 rosuvastatin 40 mg tablet 40 mg PO QDAY 05/24/18 Atenolol [Tenormin (beta doretha)] 25 mg PO DAILY 05/27/18 Diazepam [Valium] 5 mg PO BID PRN PRN 06/22/18 Fluoxetine [Prozac] 40 mg PO DAILY 06/22/18 Fluticasone Propionate 2 spray INTRANASAL DAILY PRN 06/22/18 Primary Care Physician: Sofy Richter DO [Primary Care Provider] - Please follow up with your Primary Care Physician in: 1 Week Please Follow Up With: Yamil Merino MD When: As scheduled Please Follow Up With: Ifeoma Quispe DO When: As scheduled Disposition: Home Minutes spent on discharge:: 35 Patient Condition:: Stable Medical Necessity - Tobacco Use Smoking Status: Former smoker Meaningful Use Info Meaningful Use Diagnoses (Choose all that apply): None applicable <Roby Mcnair - Last Filed: 06/23/18 07:58> Discharge Date and Diagnosis - Secondary Discharge Diagnosis Chronic Problems (Last Reviewed 06/22/18 @ 06:43 by Iglesia Arias MD) Acute diastolic (congestive) heart failure (Chronic 04/18/18) Atherosclerosis of coronary artery of [place] heart without angina pectoris (Chronic) Moderate coronary artery disease involving the mid circumflex artery and distal circumflex artery with preserved left ventricular ejection fraction. 04/18/18 Paroxysmal supraventricular tachycardia (Chronic) Nonrheumatic mitral valve prolapse (Chronic) Acute on chronic respiratory failure with hypoxia and hypercapnia (Chronic) COPD (chronic obstructive pulmonary disease) (Chronic) Hospital Course and Treatment Summary of Care Provided: The patient is a 53 year old F [] Discharge Summary Summary: Patient admitted for what appeared to be atypical chest pain Reviewed independently of NEUROLOGY TECH and case discussed as well Stress test was negative and patients symptoms which were most likely musculoskeletal have resolved Stable for discharge home 06/22/18 1321 <Electronically signed by Alpa BRANDTC> Date Alpa BRANDTC 06/23/18 0801<Electronically signed by Roby Mcnair MD> Cosigner Signature (if applicable): Date Roby Mcnair MD CC: LALITHA Somers; Roby Mcnair M.D.; Sofy Richter DO Signed DISCHARGE INSTRUCTION Observed: 06/22/2018 Status: F Source: [place] 1:[address] [facility] REPOSITORY [facility] Medical Records Department [address] [place] [address] Instructions for Home/Discharge Instructions 06/22/18 1307 MR#: [id number] Acct: [id number] Name: ALEXEI FOWLER Rep #: [id number] : 1965 53 From: Alpa Somers [employer] PCP: Sofy Richter DO Status: ADM DMITRIY - Discharge Diagnoses Current Active Problems: Current Active and Chronic Problems (Last Reviewed 06/22/18 @ 06:43 by Iglesia Arias MD) Chest pain (Acute) You will use the following diet at home:: Cardiac Discharge Activity: Return to Normal Activity Call your doctor if you observe: Shortness of breath, Dizziness, Fainting spells, Chest pain Additional Instructions: May take ibuprofen 400mg every 4- 6 hours for musculoskeletal pain. Allergies/Adverse Reactions: Allergies amoxicillin Allergy (Severe, Verified 05/27/18 13:44) Shortness of breath AND HIVES azithromycin Allergy (Severe, Verified 05/27/18 13:44) Shortness of breath AND HIVES clindamycin Allergy (Severe, Verified 05/27/18 13:44) Shortness of breath AND HIVES doxycycline Allergy (Severe, Verified 05/27/18 13:44) Shortness of breath AND HIVES erythromycin lactobionate [From Erythrocin] Allergy (Severe, Verified 05/27/18 13:44) Shortness of breath AND HIVES Penicillins Allergy (Severe, Verified 05/27/18 13:44) Shortness of breath AND HIVES Sulfa (Sulfonamide Antibiotics) Allergy (Severe, Verified 05/27/18 13:44) Shortness of breath AND HIVES sulfamethoxazole [From Bactrim] Allergy (Severe, Verified 05/27/18 13:44) Shortness of breath AND HIVES trimethoprim [From Bactrim] Allergy (Severe, Verified 05/27/18 13:44) Shortness of breath AND HIVES tramadol Allergy (Verified 05/27/18 13:44) Unknown codeine [From Tylenol-Codeine #3] Adverse Reaction (Verified 05/27/18 13:44) Nausea/Vom/Diarrhea metoprolol Adverse Reaction (Verified 05/27/18 13:44) hypotension terbutaline [From Brethine] Adverse Reaction (Verified 05/27/18 13:44) Other ANITHISTAMINES Allergy (Uncoded 05/27/18 13:44) Unknown Medications to take at Discharge Ranitidine [Zantac] 150 mg PO DAILY 02/27/16 levothyroxine 125 mcg tablet 125 mcg PO DAILY 11/08/17 Albuterol Inhaler [Ventolin Hfa] 1 - 2 puff INHALATION Q4H PRN PRN 04/15/18 Fluoxetine [Prozac] 20 mg PO QHS 04/15/18 Lamotrigine [Lamotrigine Odt] 200 mg PO BID 04/15/18 Aspirin [Aspirin, Baby] 81 mg PO DAILY tab.chew 04/21/18 Nicotine [Nicoderm] 14 mg TRANSDERM. DAILY patch 04/21/18 rosuvastatin 40 mg tablet 40 mg PO QDAY 05/24/18 Atenolol [Tenormin (beta doretha)] 25 mg PO DAILY 05/27/18 Diazepam [Valium] 5 mg PO BID PRN PRN 06/22/18 Fluoxetine [Prozac] 40 mg PO DAILY 06/22/18 Fluticasone Propionate 2 spray INTRANASAL DAILY PRN 06/22/18 Primary Care Physician: Sofy Richter DO [Primary Care Provider] - Please follow up with your Primary Care Physician in: 1 Week Test Results: Test results from this visit will be discussed in further detail at your follow-up appointment, if applicable. Please Follow Up With: Yamil Merino MD When: As scheduled Please Follow Up With: Ifeoma Quispe DO When: As needed Proposed Discharge Date: 06/22/18 06/22/18 1313 <Electronically signed by Alpa DOTY> Date Alpa DOTY CC: Sofy Richter DO STRESS REPORT Observed: 06/22/2018 Status: F Source: [place] 12:[address] [facility] REPOSITORY [facility] [place] [address] MR#: [id number] Acct: [id number] Name: ALEXEI FOWLER Rep #: [id number] : 1965 53 From: Yamil Merino MD Primary Care: Sofy Richter DO Status: ADM DMITRIY Ordering Dr: Sex: F C Stress Test Report Pharmacologic myocardial perfusion stress test. 53-year-old lady with a history of chest pain. Stress protocol. Resting EKG demonstrates sinus rhythm with a rate of 75 bpm normal intervals and noted. 0.4 mg of regadenoson was infused per usual protocol followed by rapid intravenous saline flush injection. The maximum heart rate attained was 104 bpm which was 61% maximum predicted heart rate the maximum workload was 1 metabolic equivalent. At rest there were no ST or T-wave changes noted suggest abnormal flow reserve at peak infusion no ST or T-wave changes were noted suggest abnormal flow reserve. Resting blood pressure was 100/58 with a final blood pressure 108/58. The patient had previously been put on a treadmill and exercised 4 minutes attaining a maximum heart rate of 137 bpm which was 81% of maximum predicted heart rate and a workload of 6 metabolic equivalents. Patient got markedly short of breath and did not obtain 85% maximum predicted heart rate and therefore the test was terminated. Stress myocardial perfusion protocol: 12.0 mCi of technetium 99m sestamibi was injected at rest. 0.4 mg of regadenoson was infused per usual protocol peak infusion 35.8 mCi of technetium 99m sestamibi was injected stress images were obtained stress and rest images were reconstructed and compared in the short axis vertical long horizontal long axis. Gated images were also obtained pre- Perfusion SPECT analysis: Review of the stress images demonstrate normal uptake of tracer noted in all areas of the myocardium the resting images similarly demonstrate normal uptake of tracer noted in all areas of the myocardium. No reversibility is noted suggest ischemia and no infarct is noted. Gated SPECT analysis: The gated ejection fraction is noted to be 82%. Conclusion : Normal pharmacologic myocardial perfusion stress test. Good exercise capacity present. 06/22/18 1236 <Electronically signed by Yamil Merino MD> Date Yamil Merino MD CC: Roby Mcnair M.D.; Sofy Richter DO Date Dictated: 06/22/18 1232 Date Transcribed: 06/22/18 1232 Lieutenant Colonel: [place] Signed HISTORY AND PHYSICAL Observed: 06/22/2018 Status: F Source: [place] EXAM 6:48 [facility] REPOSITORY [facility] Medical Records Department [address] [place] [address] History and Physical 06/21/18 2308 MR#: [id number] Acct: [id number] Name: ALEXEI FOWLER Rep #: [id number] : 1965 53 From: Iglesia Arias MD PCP: Sofy Richter DO Status: ADM DMITRIY Y Location: [place] [address] Problem List (1) Chest pain Status: Acute History of Present Illness Date of Admission: 06/21/18 Chief Complaint: Chest pain The patient is a 53 year old F with a significant history of non-ST elevation myocardial infarction following sepsis due to pneumonia ; moderate disease in the circumflex; mitral valve prolapse; previous smoker who presented with excruciating constant and persistent chest pain for 1 day. She rates her pain as 8 out of 10. She described the pain as an ache, pressure and a squeeze. Her pain occurred at rest. She denied any aggravating or alleviating factors. Her pain was located is left shoulder and circumferential at the bra line and across to her back and in between her scapula. Her pain radiated to her neck and her left shoulder. Associated with her symptoms is diaphoresis and severe heart burn that did not resolve with ranitidine. The patient stated that typically her heart burn resolves with ranitidine. She had a cardiac cath in April of this year and it showed Codominant left circumflex artery with mid circumflex 50% stenosis and mid to distal circumflex artery 50-70% stenosis. Past Medical History Past Medical History (Chronic Problems): Chronic Problems (Last Reviewed 05/24/18 @ 10:43 by Yamil Merino MD) Acute diastolic (congestive) heart failure (Chronic 04/18/18) Atherosclerosis of coronary artery of [place] heart without angina pectoris (Chronic) Moderate coronary artery disease involving the mid circumflex artery and distal circumflex artery with preserved left ventricular ejection fraction. 04/18/18 Paroxysmal supraventricular tachycardia (Chronic) Nonrheumatic mitral valve prolapse (Chronic) Acute on chronic respiratory failure with hypoxia and hypercapnia (Chronic) COPD (chronic obstructive pulmonary disease) (Chronic) Medical History: Medical History (Last Reviewed 06/22/18 @ 06:43 by Iglesia Arias MD) Acute diastolic (congestive) heart failure (Chronic) Onset Date: 04/18/18 I50.31 Atherosclerosis of coronary artery of [place] heart without angina pectoris (Chronic) I25.10 Moderate coronary artery disease involving the mid circumflex artery and distal circumflex artery with preserved left ventricular ejection fraction. 04/18/18 Paroxysmal supraventricular tachycardia (Chronic) I47.1 Nonrheumatic mitral valve prolapse (Chronic) I34.1 Acute on chronic respiratory failure with hypoxia and hypercapnia (Chronic) J96.21, J96.22 NSTEMI (non-ST elevated myocardial infarction) (Resolved) Onset Date: 04/16/18 I21.4 COPD (chronic obstructive pulmonary disease) (Chronic) J44.9 Bipolar disorder F31.9 Chronic back pain M54.9, G89.29 Diverticula of colon K57.30 GERD (gastroesophageal reflux disease) K21.9 Hypersomnia, unspecified G47.10 Hypothyroidism E03.9 TMJ (temporomandibular joint syndrome) M26.609 Hypoglycemia (Resolved) E16.2 Hypokalemia (Resolved) E87.6 Urinary incontinence (Inactive) R32 Allergies amoxicillin Allergy (Severe, Verified 05/27/18 13:44) Shortness of breath AND HIVES azithromycin Allergy (Severe, Verified 05/27/18 13:44) Shortness of breath AND HIVES clindamycin Allergy (Severe, Verified 05/27/18 13:44) Shortness of breath AND HIVES doxycycline Allergy (Severe, Verified 05/27/18 13:44) Shortness of breath AND HIVES erythromycin lactobionate [From Erythrocin] Allergy (Severe, Verified 05/27/18 13:44) Shortness of breath AND HIVES Penicillins Allergy (Severe, Verified 05/27/18 13:44) Shortness of breath AND HIVES Sulfa (Sulfonamide Antibiotics) Allergy (Severe, Verified 05/27/18 13:44) Shortness of breath AND HIVES sulfamethoxazole [From Bactrim] Allergy (Severe, Verified 05/27/18 13:44) Shortness of breath AND HIVES trimethoprim [From Bactrim] Allergy (Severe, Verified 05/27/18 13:44) Shortness of breath AND HIVES tramadol Allergy (Verified 05/27/18 13:44) Unknown codeine [From Tylenol-Codeine #3] Adverse Reaction (Verified 05/27/18 13:44) Nausea/Vom/Diarrhea metoprolol Adverse Reaction (Verified 05/27/18 13:44) hypotension terbutaline [From Brethine] Adverse Reaction (Verified 05/27/18 13:44) Other ANITHISTAMINES Allergy (Uncoded 05/27/18 13:44) Unknown Home Medications: Ambulatory Orders Medication Instructions Recorded Ranitidine [Zantac] 150 mg PO DAILY 02/27/16 levothyroxine 125 mcg tablet 125 mcg PO DAILY 11/08/17 Surgical History: Surgical History (Last Reviewed 06/22/18 @ 06:43 by Iglesia Arias MD) History of appendectomy (Resolved) Z98.890, Z90.49 History of section (Resolved) Z98.891 History of cholecystectomy (Resolved) Z98.890, Z90.49 History of dilatation and curettage (Resolved) Z98.890 History of left heart catheterization Onset Date: 04/18/18 Z98.890 Moderate coronary artery disease involving the mid circumflex artery and distal circumflex artery with preserved left ventricular ejection fraction. History of left oophorectomy (Resolved) Z98.890, Z90.721 Surgical History: - - Emergency 1993 Left ovary follapian tube and ovary removed 1998 Throat biopsy: benign 1999 Hydrothermal ablation and D AND C 2004 Emergency appendectomy 2008 Cholecystectomy lap 2002 Lives: With Family Smoking Status: Former smoker - *Family History Paternal Family History: Family History (Last Reviewed 06/22/18 @ 06:43 by Iglesia Arias MD) Mother Hypertension Pulmonary embolism Psychiatric care Father Lung cancer Grandmother Breast cancer Sister Asthma Seizures Psychiatric care Depression Son Depression Psychiatric care ADHD Daughter Depression Psychiatric care Bipolar 1 disorder History Items: Hypertension Review of Systems Constitutional: Denies: Chills, Fever, Weight Change HEENT: Denies: Head Aches, Sinus Congestion, Sinus Drainage Cardiovascular: Reports: Chest Pain Respiratory: Denies: Cough, Shortness of breath at rest, Sputum production Gastrointestinal: Denies: Abdominal Pain, Nausea, Vomiting Genitourinary: Denies: Dysuria Musculoskeletal: Denies: Joint Pain, Joint Tenderness Skin: Denies: Rash, Wounds Neurological: Denies: Numbness, Tingling, Focal weakness Psychiatric: Denies: Anxiety, Depression, Homicidal Ideations, Suicidal Ideations Hematologic/ Lymphatic: Denies: Easy Bruising, Easy Bleeding VTE Information - Inpt Only VTE Present on Admission: No VTE Mechan Device Prophylaxis: None VTE Pharm Prophylaxis ordered?: Yes Patient Problems: Active and Suspected Problems (Last Reviewed 05/24/18 @ 10:43 by Yaiml Merino MD) Chest pain (Acute) - Physical Exam General: Alert, Oriented x3, Cooperative HEENT: Atraumatic, PERRLA, EOMI, Normocephalic Neck: Supple, No JVD, Negative Carotid Bruits Lungs: Clear to auscultation, Normal air movement Cardiovascular: Bradycardic, - - Tender below bilateral breasts and upper back. Abdomen: Bowel Sounds Present Extremities: No edema, Capillary Refill Less than 3 Seconds Skin: No rashes, No breakdown Musculoskeletal: No Tenderness to Palpation of Joints or Extremities Neurological: Cranial nerves II-XII grossly intact Psych/Mental Status: Normal Affect, Appropriate Vital Signs Temp Pulse Resp BP Pulse Ox 97.5 F L 58 L 14 95/41 L 98 06/21/18 20:53 06/21/18 21:30 06/21/18 21:30 06/21/18 21:30 06/21/18 21:30 Oxygen Delivery Method Room Air Weight: 60 kg Body Mass Index (BMI) 23.4 Laboratory Tests Past 24 Hrs Assessment/Plan All Active Problems (Last Reviewed 05/24/18 @ 10:43 by Yamil Merino MD) Chest pain (Acute) NSTEMI (non-ST elevated myocardial infarction) (Resolved 04/16/18) Elevated troponin (Resolved) History of appendectomy (Resolved) History of section (Resolved) History of cholecystectomy (Resolved) History of dilatation and curettage (Resolved) History of left oophorectomy (Resolved) Hypoglycemia (Resolved) Hypokalemia (Resolved) Multifocal possible HCAP (Resolved) Superficial venous thrombosis of arm (Resolved) The patient is a 53 year old F with a significant history of non-ST elevation myocardial infarction following sepsis due to pneumonia ; moderate disease in the circumflex; mitral valve prolapse; previous smoker who presented with excruciating constant and persistent chest pain for 1 day. Chest pain Admit to a monitored bed on PCU CXR independently reviewed did not show any acute disease EKG independently reveiwed did not show any acute T-wave abnormalities Old records reviewed showed cardiac catheterization findings as stated in HPI Received aspirin 324 mg at the ED ASA 81 mg p.o. daily SL NTG 0.4 mg prn as needed for chest pain Lipitor 80 mg daily The patient had hypotension and was given IV normal saline bolus. Resume atenolol and blood pressure parameters are met. Serial cardiac enzymes Stat EKG as needed for chest pain Treadmill stress test with nuclear imaging in the AM if the cardiac enzymes are negative If stress test is unremarkable and patient continued to have chest pain consider musculoskeletal source of chest pain; or GERD. Tobacco abuse She used to smoke cigarettes. Although patient stated that she stopped using tobacco for about the past 3 months she reported that she is to allow cravings and was recently on a nicotine patch which she ran out of Nicoderm 14 mg ordered. Counseled . GERD Ranitidine held We will start patient on Protonix to see whether it can help his symptoms better. DVT prophylaxis Subcutaneous Lovenox. Code Visit OBSV E AND M: [id number] Initial observation care L3 06/22/18 0648 <Electronically signed by Iglesia Arias MD> Date Iglesia Arias MD Cosigner Signature: Date (if applicable) CC: Iglesia Arias MD; Sofy Richter DO Signed PROTHROMBIN TIME W/INR Collected: 06/22/2018 Status: F Source: [place] 4:[address] [facility] REPOSITORY TYPE CODE TESTS RESULT OUT OF RANGE REFERENCE UNITS LAB L300.4150 11.7-14.9 SECONDS Normal PROTIME 13.0 LAB L300.4200 Normal INR 1.0 Performed By: #### L300.3900 #### [facility] [address] [place], [address] BASIC METABOLIC Collected: 06/22/2018 Status: F Source: [place] PROFILE (BMP) 4:[address] [facility] REPOSITORY TYPE CODE TESTS RESULT OUT OF RANGE REFERENCE UNITS LAB L501.0100 74-106 mg/dL Normal GLU 80 Result Comment: Please note revised GLUCOSE reference range effective 2017. LAB L501.1000 7-18 mg/dL High BUN 23 LAB L501.1100 0.55-1.02 mg/dL Normal CREAT,SERUM 0.58 Result Comment: The validity of the calculated GFR AND GFRAA in patients over 70 years has not been determined. Clinical correlation is essential. LAB L501.1110 >60 mL/min Normal EST GFR 116 Result Comment: Non- GFR Calc LAB L501.1115 >60 mL/min Normal EST GFR - AA 140 Result Comment: GFR Calc LAB L501.1255 ml/min Normal Estimated CRCL 93.86 LAB L501.1300 10-20 RATIO High BUN/CRE 39.6 LAB L501.2200 8.5-10 mg/dL Low .1 CA 8.0 LAB L501.5300 136-14 mmol/L High 5 NA 147 LAB L501.5600 3.5-5. mmol/L Low 1 K 3.4 LAB L501.5900 98-107 mmol/L High CL 112 LAB L501.6100 21.0-3 mmol/L Normal 2.0 CO2 27.0 LAB L501.6200 5-15 Normal GAP 8 Performed By: #### L500.2500 #### [facility] [address] [place], [address] TROPONIN-I Collected: 06/22/2018 Status: F Source: [place] 4:[address] [facility] REPOSITORY Order Comment: 'TROP' Serial specimen #1, #2 or #3: 3 'TROP' Serial specimen #1, #2, #3, or #4: 3 TYPE CODE TESTS RESULT OUT OF RANGE REFERENCE UNITS LAB L501.4010 <0.045 ng/mL Normal < 0.015 TROPONIN-I Result Comment: TROPONIN-I EXPECTED VALUES <0.045 Negative 0.045 - 0.590 Consistent with Cardiac Damage > OR = 0.600 Critical Value Not every elevated troponin is indicative of [place]. These values should be used with clinical judgement in examining the patient's clinical picture for diagnosis. To establish a diagnosis of [place] versus myocardial injury, there must be a demonstrated rise and/or fall in the troponin values, in addition to ischemic symptoms, EKG changes, new regional wall motion abnormality, and/or angiographical evidence. PLEASE NOTE: REFERENCE RANGES EDITED 18 Performed By: #### L501.4010 #### [facility] [address] [place], [address] CBC W/DIFF, AUTOMATED Collected: 06/22/2018 Status: F Source: [place] 4:[address] [facility] REPOSITORY TYPE CODE TESTS RESULT OUT OF RANGE REFERENCE UNITS LAB L100.1000 4.4-11.0 K/mm3 Normal WBC 5.4 LAB L100.1200 4.2-5.4 M/mm3 Low RBC 3.50 LAB L100.1300 12.0-15.0 g/dl Low HGB 11.2 LAB L100.1400 37-47 % Low HCT 33.9 LAB L100.1500 81-99 fL Normal MCV 96.9 LAB L100.1600 27.0-32.0 pg Normal MCH 32.0 LAB L100.1700 32-36 g/gl Normal MCHC 33.0 LAB L100.1810 11.6-14.6 % Normal RDW CV 12.1 LAB L100.1820 35.1-43.9 fl Normal RDW SD 41.7 LAB L100.1900 150-450 K/mm3 Normal PLT 160 LAB L100.2000 6.2-12.0 fl Normal MPV 11.8 LAB L100.2100 47-70 % Low NEUT% 40.5 LAB L100.2200 19-41 % High LY% 49.6 LAB L100.2300 0-10 % Normal MONO% 6.5 LAB L100.2400 0-5 % Normal EO% 3.0 LAB L100.2500 0-1 % Normal BASO% 0.4 LAB L100.2550 0.0-0.9 % Normal IM GRAN % 0.000 Result Comment: IG% - Immature Granulocytes (promyelocytes, myelocytes and metamyelocytes) > 1% indicates that a LEFT SHIFT is Present. LAB L100.2620 2.0-7.7 X10 3/uL Normal Absolute Neut 2.2 LAB L100.2720 0.83-4.51 X10 3/ul Normal Absolute Lymph 2.66 Performed By: #### L100.0100, L300.4310 #### [facility] [address] [place], [address] PARTIAL THROMBOPLAST Collected: 06/22/2018 Status: F Source: [place] TIME 4:[address] [facility] REPOSITORY TYPE CODE TESTS RESULT OUT OF RANGE REFERENCE UNITS LAB L300.4310 24.1-36.2 Seconds Normal PTT 26.9 Performed By: #### L100.0100, L300.4310 #### [facility] [address] [place], [address] TROPONIN-I Collected: 06/22/2018 Status: F Source: [place] 1:[address] [facility] REPOSITORY Order Comment: 'TROP' Serial specimen #1, #2 or #3: 2 TYPE CODE TESTS RESULT OUT OF RANGE REFERENCE UNITS LAB L501.4010 <0.045 ng/mL Normal < 0.015 TROPONIN-I Result Comment: TROPONIN-I EXPECTED VALUES <0.045 Negative 0.045 - 0.590 Consistent with Cardiac Damage > OR = 0.600 Critical Value Not every elevated troponin is indicative of [place]. These values should be used with clinical judgement in examining the patient's clinical picture for diagnosis. To establish a diagnosis of [place] versus myocardial injury, there must be a demonstrated rise and/or fall in the troponin values, in addition to ischemic symptoms, EKG changes, new regional wall motion abnormality, and/or angiographical evidence. PLEASE NOTE: REFERENCE RANGES EDITED 18 Performed By: #### L501.4010 #### [facility] [address] [place], [address] EMERGENCY DEPARTMENT Observed: 06/21/2018 Status: F Source: [place] SUMMARY 11:[address] [facility] REPOSITORY [facility] Medical Records Department [address] [place] [address] Emergency Department Summary 06/21/18 2138 MR#: [id number] Acct: [id number] Name: ALEXEI FOWLER Rep #: [id number] : 1965 53 From: Joselyn Hall MD PCP: Sofy Richter DO Status: REG ER - ER Visit Summary Date of Service: 06/21/18 Chief Complaint: Chest pain History of Present Illness: The patient is a 53 F presenting with chest pain. She states this started yesterday. Pain has been intermittent. Pain is in the left chest and goes to her left arm and neck. She states today the pain began radiating to her back. She denies shortness of breath. She has had diaphoresis associated with this. She does not recall anything that makes this better or worse. She has a history of hypercholesterolemia and previous [place]. She is a previous smoker. Physical Examination: Vitals are stable. Patient is afebrile. Alert no acute distress. HEENT exam is unremarkable. Neck is supple. Lungs are clear and equal bilaterally. Heart is regular rate and rhythm. Abdomen is soft nontender nondistended. Extremities are unremarkable. Skin is warm and dry. No focal neurologic deficit. Remainder of exam is unremarkable. Emergency Department Course and Treatment: Patient was given aspirin on arrival. EKG is sinus rate of 56 with no acute ischemic changes. Chest x-ray shows no acute process. CBC normal except for hemoglobin 11.3. Chemistries unremarkable other than BUN 34. Troponin is negative. D-dimer negative. She is resting comfortably on reevaluation. Will discuss with the hospitalist for observation Disposition: Observation Impression: Chest pain This note was generated with [employer] dictation software. It may contain incorrect words, spelling, and punctuation that were not noted in review of the chart prior to signing ED Disposition - Plan for ED Patient: Chief Complaint: Chest Pain Referrals: Sofy Richter, [Primary Care Provider] - What to do if you have Problems For any increased pain, shortness of breath, bleeding, nausea or vomiting, chest pain, or any unexpected problems, contact your Primary Care Provider. Call [facility] ([phone]) or report to the closest Emergency Room. Call 911 if necessary. 06/21/18 6257 <Electronically signed by Joselyn Hall MD> Date Joselyn Hall MD Cosigner Signature (If Indicated): Date CC: Sfoy Richter DO CHEST 1 VIEW Observed: 06/21/2018 Status: F Source: [place] (PORTABLE) 9:38 PM [facility] REPOSITORY [facility] Imaging Services [address] [place] [address] Chest 1 View (Portable) MR#: [id number] Acct: [id number] Name: ALEXEI FOWLER Rep #: [id number] : 1965 F 53 From: Matthias Alberts MD PCP: Sofy Richter DO Status: REG ER Study: Chest 1 View (Portable) Date of Exam: 06/21/18 Exam# [id number] Ordering Dr: Joselyn Hall MD STUDY: X-RAY CHEST REASON FOR EXAM: Female, 53 years old. Chest pain TECHNIQUE: AP portable COMPARISON: May 27, 2018 FINDINGS: There is mild prominence of the interstitial markings in the lower lobes. No focal infiltrates or pulmonary edema.. There is no demonstrated pleural abnormality. Normal size heart. Normal mediastinum and ashli. Normal visualized pulmonary arteries. Normal visualized aortic arch and descending thoracic aorta. Dorsal spine demonstrates mild scoliosis and degenerative change. Normal visualized ribs, clavicles, and shoulders. There is no demonstrated abnormality of the visualized soft tissue structures of the upper abdomen. No significant change since prior exam RAD/Chest 1 View (Portable) IMPRESSION: No acute cardiopulmonary pathology Electronically Signed: Matthias Alberts MD at 22:10 EDT , Service support , CC: Joselyn Hall MD; Sofy Richter DO Lieutenant Colonel: Signed CBC W/DIFF, AUTOMATED Collected: 06/21/2018 Status: F Source: [place] 9:25 PM [facility] REPOSITORY TYPE CODE TESTS RESULT OUT OF RANGE REFERENCE UNITS LAB L100.1000 4.4-11.0 K/mm3 Normal WBC 6.2 LAB L100.1200 4.2-5.4 M/mm3 Low RBC 3.55 LAB L100.1300 12.0-15.0 g/dl Low HGB 11.3 LAB L100.1400 37-47 % Low HCT 33.6 LAB L100.1500 81-99 fL Normal MCV 94.6 LAB L100.1600 27.0-32.0 pg Normal MCH 31.8 LAB L100.1700 32-36 g/gl Normal MCHC 33.6 LAB L100.1810 11.6-14.6 % Normal RDW CV 12.5 LAB L100.1820 35.1-43.9 fl Normal RDW SD 43.1 LAB L100.1900 150-450 K/mm3 Normal PLT 166 LAB L100.2000 6.2-12.0 fl Normal MPV 11.3 LAB L100.2100 47-70 % Low NEUT% 43.1 LAB L100.2200 19-41 % High LY% 45.2 LAB L100.2300 0-10 % Normal MONO% 8.4 LAB L100.2400 0-5 % Normal EO% 2.6 LAB L100.2500 0-1 % Normal BASO% 0.5 LAB L100.2550 0.0-0.9 % Normal IM GRAN % 0.200 Result Comment: IG% - Immature Granulocytes (promyelocytes, myelocytes and metamyelocytes) > 1% indicates that a LEFT SHIFT is Present. LAB L100.2620 2.0-7.7 X10 3/uL Normal Absolute Neut 2.7 LAB L100.2720 0.83-4.51 X10 3/ul Normal Absolute Lymph 2.79 Performed By: #### L100.0100 #### [facility] [address] [place], [address] D-DIMER QUANTITATIVE Collected: 06/21/2018 Status: F Source: [place] (DVT/PE) 9:[address] [facility] REPOSITORY TYPE CODE TESTS RESULT OUT OF RANGE REFERENCE UNITS LAB L300.8000 0.27-0.49 FEU/ug/m Normal D-DIMER 0.36 QUANT Result Comment: NORMAL D-Dimer level (<0.50) indicates no DVT or PE. Performed By: #### L300.8000 #### [facility] [address] [facility] [place], [place], [address] BASIC METABOLIC Collected: 06/21/2018 Status: F Source: [place] PROFILE (BMP) 9:[address] [facility] REPOSITORY TYPE CODE TESTS RESULT OUT OF RANGE REFERENCE UNITS LAB L501.0100 74-106 mg/dL Normal GLU 83 Result Comment: Please note revised GLUCOSE reference range effective 2017. LAB L501.1000 7-18 mg/dL High BUN 34 LAB L501.1100 0.55-1.02 mg/dL Normal CREAT,SERUM 0.60 Result Comment: The validity of the calculated GFR AND GFRAA in patients over 70 years has not been determined. Clinical correlation is essential. LAB L501.1110 >60 mL/min Normal EST GFR 111 Result Comment: Non- GFR Calc LAB L501.1115 >60 mL/min Normal EST GFR - AA 134 Result Comment: GFR Calc LAB L501.1255 ml/min Normal Estimated CRCL 90.73 LAB L501.1300 10-20 RATIO High BUN/CRE 56.4 LAB L501.2200 8.5-10 mg/dL Low .1 CA 8.3 LAB L501.5300 136-14 mmol/L Normal 5 NA 144 LAB L501.5600 3.5-5. mmol/L Normal 1 K 3.8 LAB L501.5900 98-107 mmol/L High CL 109 LAB L501.6100 21.0-3 mmol/L Normal 2.0 CO2 26.0 LAB L501.6200 5-15 Normal GAP 9 Performed By: #### L500.2500, L501.4010 #### [facility] [address] [place], [place], [address] TROPONIN-I Collected: 06/21/2018 Status: F Source: [place] 9:[address] [facility] REPOSITORY TYPE CODE TESTS RESULT OUT OF RANGE REFERENCE UNITS LAB L501.4010 <0.045 ng/mL Normal < 0.015 TROPONIN-I Result Comment: TROPONIN-I EXPECTED VALUES <0.045 Negative 0.045 - 0.590 Consistent with Cardiac Damage > OR = 0.600 Critical Value Not every elevated troponin is indicative of [place]. These values should be used with clinical judgement in examining the patient's clinical picture for diagnosis. To establish a diagnosis of [place] versus myocardial injury, there must be a demonstrated rise and/or fall in the troponin values, in addition to ischemic symptoms, EKG changes, new regional wall motion abnormality, and/or angiographical evidence. PLEASE NOTE: REFERENCE RANGES EDITED 18 Performed By: #### L500.2500, L501.4010 #### [facility] [address] [facility] [place], [address] 6 MINUTE WALK TEST Observed: 06/06/2018 Status: F Source: [place] 8:[address] [facility] REPOSITORY [facility] Pulmonary Services/Neurology [address] [place] [address] MR#: [id number] Acct: [id number] Name: ALEXEI FOWLER Rep #: [id number] : 1965 53 From: Ifeoma Quispe DO Referring Dr: Sarah Pat NEUROLOGY TECH Date: Ordering Dr: Sex: F C Location: PSN PSN 6 Minute Walk Test - 6 Minute Walk Test 6 Minute Walk Test: 6 Minute Walk Test PSN:6-Minute Walk Test Start: 06/05/18 12:16 Freq: Status: Active Protocol: RESP.6MINW Document 06/05/18 12:17 MICHAEL (Rec: 06/05/18 12:21 SFENTON [id number]) 6 Minute Walk Test Date Performed 06/05/18 Time Performed 12:00 Height 5 ft 3 in Weight: 130 lb Weight in Pounds 130.[address]: Sarah Pat Assistive device used: None Pre-test Oxygen Delivery Method Room Air Pulse Ox (%) 94 Pulse Rate (60-100 beats/min) 74 Dyspnea Larry Scale (0-10) 0 Exertion Larry Scale (6-20) 6 1st minute Oxygen Delivery Method Room Air Pulse Ox (%) 95 Pulse Rate (60-100 beats/min) 90 2nd minute Oxygen Delivery Method Room Air Pulse Ox (%) 94 Pulse Rate (60-100 beats/min) 91 3rd minute Oxygen Delivery Method Room Air Pulse Ox (%) 93 Pulse Rate (60-100 beats/min) 89 4th minute Oxygen Delivery Method Room Air Pulse Ox (%) 94 Pulse Rate (60-100 beats/min) 89 5th minute Oxygen Delivery Method Room Air Pulse Ox (%) 93 Pulse Rate (60-100 beats/min) 89 6th minute Oxygen Delivery Method Room Air Pulse Ox (%) 93 Pulse Rate (60-100 beats/min) 89 Post-test Oxygen Delivery Method Room Air Pulse Ox (%) 95 Pulse Rate (60-100 beats/min) 76 Full Laps Walked 19 Partial Lap, Number of Tiles Walked 4 Total Distance Walked (ft) 1125 - Interpretation Interpretation: The patient ambulated 1125 feet over the course of 6 minutes beginning on room air without assistive devices or breaks. Pretesting oxygen saturation was noted to be 94% on room air. With ambulation, the evette oxygen saturation was 93%. There was no significant exertional oxygen desaturation. - Recommendations Recommendations: There is no indication for the use of supplemental oxygen at this time. 06/06/18829 <Electronically signed by Ifeoma Quispe DO> Date Ifeoma Quispe DO CC: Date Dictated: 06/06/18828 Date Transcribed: 06/06/18828 Lieutenant Colonel: Ifeoma Quispe DO Signed EMERGENCY DEPARTMENT Observed: 05/27/2018 Status: F Source: [place] SUMMARY 5:[address] [facility] REPOSITORY [facility] Medical Records Department [address] [place] [address] Emergency Department Summary 05/27/18 1613 MR#: [id number] Acct: [id number] Name: ALEXEI FOWLER Rep #: [id number] : 1965 53 From: Linwood Ayala MD PCP: Sofy Richter DO Status: DEP ER - ER Visit Summary Date of Service: 05/27/18 Chief Complaint: Cough History of Present Illness: The patient is a [address] Richter and Dr. Merino. She is a cough began 3 days ago. Is productive green sputum without blood. She has had chills, but no fever. She denies any chest pain or difficulty breathing. She reports she has been nauseated, but has not vomited. She has a headache is 3 out of 10 severity. She has a history of similar headaches. Physical Examination: Vitals: Stable. Afebrile. General: Well-nourished and well-developed. Head: Normocephalic atraumatic. Neck: Supple, no lymphadenopathy. No JVD. Nontender. Cardiovascular: Regular rate and rhythm. No murmurs. Respiratory: No respiratory distress. Clear to auscultation bilaterally. Abdominal: Soft, nontender, nondistended, normal bowel sounds. No guarding, rebound, or peritoneal signs. Back: Nontender. Extremities: Nontender, no edema. Skin: Normal color, no rash. Neurologic: Alert and oriented 3. Cranial nerves II through XII are intact. Normal strength and sensation. Psych: Normal affect. Test Results: Chest x-ray shows chronic changes unchanged from May 09 in my opinion. Radiologist has read this as increased markings in the basilar lungs bilaterally. CBC is normal. Chem-7 is more for BUN of 19 and glucose of 70. UA shows leukocytes of 510 white blood cells without bacteria. Emergency Department Course and Treatment: Patient's urine was sent for culture. I did discuss with her the findings on the chest x-ray. She would like to be placed on an antibiotic. She has multiple allergies and is given a dose of Levaquin here. Treatment Plan: Patient will be discharged on 4 more days of Levaquin. Instructed to follow-up with Dr. Richter in 3-5 days not improving. Return to the emergency department for any worsening symptoms. Disposition: To home in improved and stable condition. Impression: 1. URI. 2. Tobacco abuse. This note was generated with [employer] dictation software. It may contain incorrect words, spelling, and punctuation that were not noted in review of the chart prior to signing ED Disposition - Plan for ED Patient: Disposition: Home or Assisted Living Chief Complaint: Cough Instructions: ED COPD Flare Prescriptions: Levofloxacin [Levaquin] 750 mg PO DAILY #4 tablet Referrals: Sofy Richter, [Primary Care Provider] - 3-5 Days if not improving What to do if you have Problems For any increased pain, shortness of breath, bleeding, nausea or vomiting, chest pain, or any unexpected problems, contact your Primary Care Provider. Call [employer] ([phone]) or report to the closest Emergency Room. Call 911 if necessary. 05/27/18 1708 <Electronically signed by Linwood Ayala MD> Date Linwood Ayala MD Cosigner Signature (If Indicated): Date CC: Sofy Richter DO CBC W/DIFF, AUTOMATED Collected: 05/27/2018 Status: F Source: [place] 2:[address] [facility] REPOSITORY TYPE CODE TESTS RESULT OUT OF RANGE REFERENCE UNITS LAB L100.1000 4.4-11.0 K/mm3 Normal WBC 7.5 LAB L100.1200 4.2-5.4 M/mm3 Low RBC 4.14 LAB L100.1300 12.0-15.0 g/dl Normal HGB 13.0 LAB L100.1400 37-47 % Normal HCT 39.5 LAB L100.1500 81-99 fL Normal MCV 95.4 LAB L100.1600 27.0-32.0 pg Normal MCH 31.4 LAB L100.1700 32-36 g/gl Normal MCHC 32.9 LAB L100.1810 11.6-14.6 % Normal RDW CV 13.0 LAB L100.1820 35.1-43.9 fl High RDW SD 45.5 LAB L100.1900 150-450 K/mm3 Normal PLT 234 LAB L100.2000 6.2-12.0 fl Normal MPV 10.8 LAB L100.2100 47-70 % Normal NEUT% 60.0 LAB L100.2200 19-41 % Normal LY% 34.0 LAB L100.2300 0-10 % Normal MONO% 4.7 LAB L100.2400 0-5 % Normal EO% 0.9 LAB L100.2500 0-1 % Normal BASO% 0.4 LAB L100.2550 0.0-0.9 % Normal IM GRAN % 0.000 Result Comment: IG% - Immature Granulocytes (promyelocytes, myelocytes and metamyelocytes) > 1% indicates that a LEFT SHIFT is Present. LAB L100.2620 2.0-7.7 X10 3/uL Normal Absolute Neut 4.5 LAB L100.2720 0.83-4.51 X10 3/ul Normal Absolute Lymph 2.54 Performed By: #### L100.0100 #### [facility] [address] [place], [place], [id number] URINALYSIS, COMPLETE Collected: 05/27/2018 Status: F Source: [place] 2:[address] [facility] REPOSITORY Order Comment: How was Urine Obtained? CLEAN CATCH TYPE CODE TESTS RESULT OUT OF REFERENCE UNITS RANGE LAB L400.3000 Yellow COLOR Normal Yellow LAB L400.3050 Clear CLARITY Normal Sl. Cloudy LAB L400.3200 Normal mg/dl GLUCOSE, UR Normal Normal LAB L400.3300 Negative mg/dL BILIRUBIN Normal URINE Negative LAB L400.3400 Negative mg/dl KETONE UR Normal Negative LAB L400.3465 1.002-1.030 SP.GR. Normal DIPSTX 1.015 LAB L400.3550 5.0 - 8.0 pH UR Normal 6.0 LAB L400.3600 Negative mg/dl PROT DIPSTX Normal Negative LAB L400.3700 Normal mg/dl UROBILI Normal Normal LAB L400.3750 Negative NITRITE UR Normal Negative LAB L400.3780 Negative /ul OCCULT Normal BLOOD-UR Negative LAB L400.3800 Negative /ul LEUK High ESTERASE 500 LAB L400.4050 0-5 /hpf WBC Normal 5-10 SEEN LAB L400.4100 0-5 /hpf RBC-UA Normal 0 SEEN LAB L400.4150 5-10 /hpf SQUAM EPI Normal 0-5 SEEN LAB L400.4300 None Seen /hpf BACTERIA Normal 0 SEEN LAB L400.4350 <or=2+ /hpf MUCUS, Normal URINE 0 SEEN LAB L400.4200 0-5 /hpf Normal TRANSITIONAL EP 0-5 SEEN Performed By: #### L400.0001 #### [facility] [address] [place], [address] BASIC METABOLIC Collected: 05/27/2018 Status: F Source: [place] PROFILE (BMP) 2:[address] [facility] REPOSITORY TYPE CODE TESTS RESULT OUT OF RANGE REFERENCE UNITS LAB L501.0100 74-106 mg/dL Low GLU 70 Result Comment: Please note revised GLUCOSE reference range effective 2017. LAB L501.1000 7-18 mg/dL High BUN 19 LAB L501.1100 0.55-1.02 mg/dL Normal CREAT,SERUM 0.82 Result Comment: The validity of the calculated GFR AND GFRAA in patients over 70 years has not been determined. Clinical correlation is essential. LAB L501.1110 >60 mL/min Normal EST GFR 78 Result Comment: Non- GFR Calc LAB L501.1115 >60 mL/min Normal EST GFR - AA 94 Result Comment: GFR Calc LAB L501.1255 ml/min Normal Estimated CRCL 66.39 LAB L501.1300 10-20 RATIO High BUN/CRE 23.1 LAB L501.2200 8.5-10 mg/dL Normal .1 CA 8.8 LAB L501.5300 136-14 mmol/L Normal 5 NA 141 LAB L501.5600 3.5-5. mmol/L Normal 1 K 4.3 LAB L501.5900 98-107 mmol/L Normal CL 106 LAB L501.6100 21.0-3 mmol/L Normal 2.0 CO2 31.0 LAB L501.6200 5-15 Low GAP 4 Performed By: #### L500.2500 #### [facility] [address] [place], [place], [address] Observed: 05/27/2018 Status: F Source: [place] CULTURE, UR[place] 2:[address] [facility] REPOSITORY Urine Culture ORGANISM 1: Mixed Gram Positive Organisms [place] Count 11,000-25,000 MIX CULTURE Mixed contaminants. Submit a new specimen if indicated. Performed By: #### M100.0650 #### [facility] [address] [place], [place], [address] CHEST PA AND LATERAL Observed: 05/27/2018 Status: F Source: [place] 1:[address] [facility] REPOSITORY [facility] Imaging Services [address] [place] [address] Chest PA and Lateral MR#: [id number] Acct: [id number] Name: ALEXEI FOWLER Rep #: [id number] : 1965 F 53 From: Crow Gibson MD PCP: Sofy Richter DO Status: REG ER Study: Chest PA and Lateral Date of Exam: 05/27/18 Exam# [id number] Ordering Dr: Linwood Ayala MD STUDY: X-RAY CHEST REASON FOR EXAM: Female, 53 years old. Productive cough and upper back pain. History of recent pneumonia. TECHNIQUE: PA and lateral views of the chest. COMPARISON: Comparison is made with prior study dated May 09, 2018. FINDINGS: EKG electrodes are seen. Mild increased markings at the lung bases. Slightly worse on the left side. Follow-up is recommended. There is no demonstrated pleural abnormality. Normal size heart. Normal mediastinum and ashli. Normal visualized pulmonary arteries. Normal visualized aortic arch and descending thoracic aorta. Normal visualized thoracic spine. Normal visualized ribs, clavicles, and shoulders. There is no demonstrated abnormality of the visualized soft tissue structures of the upper abdomen. RAD/Chest PA and Lateral IMPRESSION: Mild degree of increased lung markings at the lung bases slightly worse on the left side. Electronically Signed: Crow Gibson MD at 15:04 EDT Tel [phone], Service support , CC: Sofy Richter DO; Linwood Ayala MD Lieutenant Colonel: Signed CARDIOLOGY VISIT Observed: 05/27/2018 Status: F Source: [place] REPORT 7:[address] [facility] REPOSITORY [facility] [address] [place] [address]. [address] [place] [address] OFFICE VISIT Date of Service: 05/24/18 MR#: [id number] Acct: [id number] Name: MICHELINE FOWLERILA Ismael Rep #: [id number] : 1965 Provider: Yamil Merino MD Age/Sex: 53/F [place] [facility] Status: Signed HPI [facility] Chief Complaint: Follow up Details: ALEXEI FOWLER, is a 53 F who presents to the office today for a follow-up posthospitalization visit. You do remember that she had presented in severe respiratory distress was noted to have EKG changes and ruled in for non- ST elevation myocardial infarction. She was treated for her underlying sepsis she had an echocardiogram performed which demonstrated ejection fraction of 55% with mild right ventricular dysfunction. She subsequently underwent a cardiac catheterization which demonstrated moderate disease in the circumflex artery with at least 50% stenosis. She also was noted to have runs of supraventricular tachyarrhythmia which converted spontaneously. She was put on a beta-doretha which she appears to have tolerated. She tells me that she has discontinued any tobacco use since her last visit. Her physical exam today demonstrates clear lung thomas regular rate and rhythm and no pedal edema her blood pressure is under excellent control. Intake Vital Signs05/24/18 Height 5 ft 3 in 05/24/18 Weight: 133 lb 05/24/18 Body Mass Index (BMI) 23.6 05/24/18 Blood Pressure 84/52 05/24/18 Respiratory Rate 18 05/24/18 Pulse Rate 60 Intake Visit Reasons: DC 7-15 from ICU, at [facility] Allergies amoxicillin Allergy (Severe, Verified 05/24/18 10:23) Shortness of breath azithromycin Allergy (Severe, Verified 05/24/18 10:23) Shortness of breath clindamycin Allergy (Severe, Verified 05/24/18 10:23) Shortness of breath doxycycline Allergy (Severe, Verified 05/24/18 10:23) Shortness of breath erythromycin lactobionate [From Erythrocin] Allergy (Severe, Verified 05/24/18 10:23) Shortness of breath Penicillins Allergy (Severe, Verified 05/24/18 10:23) Shortness of breath Sulfa (Sulfonamide Antibiotics) Allergy (Severe, Verified 05/24/18 10:23) Shortness of breath sulfamethoxazole [From Bactrim] Allergy (Severe, Verified 05/24/18 10:23) Shortness of breath trimethoprim [From Bactrim] Allergy (Severe, Verified 05/24/18 10:23) Shortness of breath tramadol Allergy (Verified 05/24/18 10:23) Unknown codeine [From Tylenol-Codeine #3] Adverse Reaction (Verified 05/24/18 10:23) Nausea/Vom/Diarrhea metoprolol Adverse Reaction (Verified 05/24/18 10:32) hypotension terbutaline [From Brethine] Adverse Reaction (Verified 05/24/18 10:23) Other ANITHISTAMINES Allergy (Uncoded 05/24/18 10:23) Unknown Medications Ranitidine [Zantac] 150 mg PO DAILY 02/27/16 [History Confirmed 05/24/18] levothyroxine 125 mcg tablet 125 mcg PO DAILY 11/08/17 [History Confirmed 05/24/18] Albuterol Inhaler [Ventolin Hfa] 1 - 2 puff INHALATION Q4H PRN PRN 04/15/18 [History Confirmed 05/24/18] Fluoxetine [Prozac] 20 mg PO .COMPLEX 04/15/18 [History Confirmed 05/24/18] Lamotrigine [Lamotrigine Odt] 200 mg PO BID 04/15/18 [History Confirmed 05/24/18] Acetaminophen [Tylenol Tablet] 650 mg PO Q4H PRN PRN tab 04/21/18 [Rx Confirmed 05/24/18] Aspirin [Aspirin, Baby] 81 mg PO DAILY tab.chew 04/21/18 [Rx Confirmed 05/24/18] Diazepam [Valium] 5 mg PO DAILY PRN PRN #3 tab 04/21/18 [Rx Confirmed 05/24/18] Nicotine [Nicoderm] 14 mg TRANSDERM. DAILY patch 04/21/18 [Rx Confirmed 05/24/18] fluticasone 50 mcg/actuation nasal spray,suspension 2 spray INTRANASAL DAILY #16 g 05/16/18 [Rx Confirmed 05/24/18] amiodarone 200 mg tablet 200 mg PO DAILY #30 tab 05/24/18 [Rx Confirmed 05/24/18] atenolol 25 mg tablet 25 mg PO QDAY #30 tab 05/24/18 [Rx Confirmed 05/24/18] rosuvastatin 40 mg tablet 40 mg PO QDAY 05/24/18 [History Confirmed 05/24/18] [facility] Medical History Acute diastolic (congestive) heart failure (Chronic 04/18/18) Atherosclerosis of coronary artery of [place] heart without angina pectoris (Chronic) Paroxysmal supraventricular tachycardia (Chronic) Nonrheumatic mitral valve prolapse (Chronic) Acute on chronic respiratory failure with hypoxia and hypercapnia (Chronic) NSTEMI (non-ST elevated myocardial infarction) (Resolved 04/16/18) COPD (chronic obstructive pulmonary disease) (Chronic) Bipolar disorder (Chronic) Chronic back pain (Chronic) Diverticula of colon (Chronic) GERD (gastroesophageal reflux disease) (Chronic) Hypersomnia, unspecified (Chronic) Hypothyroidism (Chronic) TMJ (temporomandibular joint syndrome) (Chronic) Hypoglycemia (Resolved) Hypokalemia (Resolved) Urinary incontinence (Inactive) Surgical History History of appendectomy (Resolved) History of section (Resolved) History of cholecystectomy (Resolved) History of dilatation and curettage (Resolved) History of left heart catheterization (Resolved 04/18/18) History of left oophorectomy (Resolved) Family History Mother Hypertension Pulmonary embolism Psychiatric care Father Lung cancer Grandmother Breast cancer Sister Asthma Seizures Psychiatric care Depression Son Depression Psychiatric care ADHD Daughter Depression Psychiatric care Bipolar 1 disorder Social History Smoking Status: Former smoker second hand exposure: Yes substance use type: does not use ROS Const Const: Negative for fatigue, weakness, difficulty sleeping, frequent falls, excessive sweating or headache(s) Eyes Eyes: Negative for loss of peripheral vision, transient loss of vision, blurry vision, tunnel vision or double vision ENT ENT: Negative for headache(s), dizziness, Nosebleed/epistaxis or balance problems Cardio Chest Pain: No Palpitations: No Edema: None Muscle aches with walking: None Resp Respiratory: Negative for SOB with activity, SOB at rest, SOB orthopnea\SOB lying down, paroxysmal nocturnal dyspnea or Cough Additional Details: diminished t/o GI GI: Negative nausea, heartburn, black,tarry stools or vomiting : Negative for hematuria Musc Musc: Negative for balance problems, muscle aches/ myalgia, muscle weakness or joint pain Skin Skin: Negative non-healing lesions, unusual bruising or rash Neuro Neuro: Negative for weakness, frequent falls, headache(s), blurry vision, double vision, dizziness, lightheadedness, orthostatic symptoms, near syncope, syncope or lack of coordination Anthony Hematologic/Lymphatic: Negative for easy bruising or easy bleeding Endo Endo: Negative for fatigue, excessive sweating or increased thirst/drinking Psych Psych: Negative for anxiety or depression Allergy Allergy/Immunology: Negative for hives, Negative for rash Cardiology Exam Const Appearance: cooperative, healthy appearing, well developed, well groomed and no acute distress Nutritional Appearance: well nourished and average body habitus Orientation: alert, awake and oriented x3 Head Head: normal to inspection, normocephalic and atraumatic Ears: hearing grossly normal bilaterally and external ears normal Nose: external nose normal, nasal mucous membranes and turbinates normal, nares normal, septum normal, no nasal discharge Face and Sinus: face symmetric Mouth: oral mucosae normal, tongue normal, oropharynx normal and moist mucous membranes Teeth and gingiva: dentition normal Throat: posterior oropharynx normal, tonsils normal and uvula midline Eyes General: appearance normal, both eyes and all related structures Eyelids: eyelids normal Conjunctivae: conjunctivae normal Pupils: PERRL, normal by confrontation and accommodation normal EOM: EOM intact bilaterally Neck Neck: normal visual inspection, trachea midline and no JVD JVD: +5 Carotids: normal carotid upstroke and bounding pulses Chest Chest inspection: normal inspection of the chest, symmetric chest movement and normal respiratory effort Auscultation: Bilateral: Clear to Auscultation Cardio Palpation: normal PMI Rate: regular rate Rhythm: regular rhythm Heart sounds: S1 normal, S2 normal and normal, physiologic split S2; negative rub, gallop or murmur GI GI: normal to inspection, soft, no hepatosplenomegaly and bowel sounds present Neuro General: alert, awake, oriented x3, no focal sensory deficit, gait normal and moves all extremities Skin Skin: no rashes or lesions noted Extremities Pulses: Normal: Right Femoral Pulse, Left Femoral Pulse, Right Dorsalis Pedis Pulse, Left Dorsalis Pedis Pulse, Right Posterior Tibial Pulse, Left Posterior Tibial Pulse, Right Radial Pulse, Left Radial Pulse Lower Extremity Edema: None: Bilateral Musculoskel Musculoskeletal: No joint tenderness Psych Psychological: normal affect Assessment AND Plan 1. NSTEMI (non-ST elevated myocardial infarction) I21.4 Plan She does have a non-ST elevation myocardial infarction with nonocclusive disease. My recommendation is for her to continue on the aspirin as well as the statin at this time. There is no reason to expect that she should develop any problems from this if she stays away from tobacco use. 2. Paroxysmal supraventricular tachycardia I47.1 Plan She does have a history of supraventricular tachyarrhythmia. The above has resolved she was put on amiodarone but with her underlying lung condition my recommendation is that after months of this medication this can be discontinued. She appears to be tolerating the beta-doretha quite well with the atenolol which she was on previously. This will be continued. 3. Acute diastolic (congestive) heart failure I50.31 Plan The above appears to have resolved. No other major changes will be made. Thank you for allowing me to participate in her care and I will like to see her again in approximately 6-9 months. Plan Detail Other Medications New: Refilled: Discontinued: albuterol sulfate Discontinued Reas2.5 mg (3 mL) Inhalation Q2H PRN PRN Asha Hearn on: Order Changed hortness Of Breath Follow Up 9 Months (mmm) Coding Level of Care Code Off vis,est,level 3 Diagnoses NSTEMI (non-ST elevated myocardial infarction) I21.4 Paroxysmal supraventricular tachycardia I47.1 Acute diastolic (congestive) heart failure I50.31 Coding Level of Care Code Off vis,est,level 3 Diagnoses NSTEMI (non-ST elevated myocardial infarction) I21.4 Paroxysmal supraventricular tachycardia I47.1 Acute diastolic (congestive) heart failure I50.31 05/27/18 0718 <Electronically signed by Yamil Merino MD> Date Yamil Merino MD Cosigner Signature: Date (if applicable) CC: Sofy Richter DO PULMONARY VISIT REPORT Observed: 05/17/2018 Status: F Source: [place] 9:[address] [facility] REPOSITORY [facility] [address] [place] [address] OFFICE VISIT Date of Service: 05/16/18 MR#: [id number] Acct: [id number] Name: ALEXEI FOWLER Rep #: [id number] : 1965 Provider: Sarah Pat Age/Sex: 53/F [place] [facility] [place] Status: Signed Assessment AND Plan 1. Centrilobular emphysema J43.2 Plan Plan to evaluate with formal pulmonary function test to identify and quantify COPD. No change in inhalers until a PFTs can be reported. Follow-up with Dr. Quispe in 3 months, at which time he will review the PFTs and decide on appropriate inhalers. Contact the office with any new or worsening symptoms in the meantime. 2. Acute on chronic respiratory failure with hypoxia and hypercapnia J96.21; J96.22 Plan Continue to utilize supplemental oxygen as needed to maintain saturations 89-92%. Formal 6 minute walk to determine how much oxygen is necessary on ambulation. Follow-up with Dr. Quispe in 3 months. 3. PND (post-nasal drip) R09.82 Plan New. Treating with nasal steroid. She has been encouraged to contact the office and give us an update on how she has responded to this medication. Plan Detail Other Orders Orders: Other Medications New: Follow Up 3 Months (DMB) HPI hosptial f/u: Chief Complaint: Cough HPI Comments Details: This is a 53 year old verbose F, currently under the care of Sofy Richter DO, here to follow up after a recent hospitalization at [facility], from April 15 - April 21, 2018 for Pneumonia, rhinovirus and Haemophilus, acute on chronic respiratory failure. The hospital stay was complicated by temporary need for intubation and ventilator support. 26 pages of hospital documentation was reviewed, and found to be significant for chest x-ray completed on April 15 showing airspace opacity in the lower lobes, left greater than right. Repeat chest x-ray on April 15 showed proper placement of an endotracheal tube and a feeding tube. She was successfully extubated and weaned to her home O2 baseline of 2 L/min on exertion. Upon discharge, the patient completed a 10 day course of Ceftin and a 12 day course of prednisone. A, she presents the office ambulatory, currently in room air and accompanied by her son. She reports a [facility] stay at a jail after her hospital discharge. She is now currently residing back in her own home. She reports that she continues to experience shortness of breath all the time. She has a cough daily, and is sometimes able to bring up green sputum. Other times she reports white to clear sputum. She currently has albuterol and DuoNeb aerosols and she is not using either of them. She does not feel as though she needs them. She reports chest congestion, feels as though she should be able to cough up more sputum. She reports occasional wheezing and chest tightness. She denies any fever, chills or body aches. Denies any nausea/vomiting or diarrhea. She denies any chest pain or palpitations. She admits that she was previously ordered to complete bony function tests and pulmonary stress test but had to cancel them secondary to being in the jail. She is motivated to participate in testing. Intake Vital Signs05/16/18 Height 5 ft 3 in 05/16/18 Weight: 131 lb Intake Visit Reasons: hosptial f/u Accompanied by: Son Allergies amoxicillin Allergy (Severe, Verified 05/16/18 11:33) Shortness of breath azithromycin Allergy (Severe, Verified 05/16/18 11:33) Shortness of breath clindamycin Allergy (Severe, Verified 05/16/18 11:33) Shortness of breath doxycycline Allergy (Severe, Verified 05/16/18 11:33) Shortness of breath erythromycin lactobionate [From Erythrocin] Allergy (Severe, Verified 05/16/18 11:33) Shortness of breath Penicillins Allergy (Severe, Verified 05/16/18 11:33) Shortness of breath Sulfa (Sulfonamide Antibiotics) Allergy (Severe, Verified 05/16/18 11:33) Shortness of breath sulfamethoxazole [From Bactrim] Allergy (Severe, Verified 05/16/18 11:33) Shortness of breath trimethoprim [From Bactrim] Allergy (Severe, Verified 05/16/18 11:33) Shortness of breath tramadol Allergy (Verified 05/16/18 11:33) Unknown codeine [From Tylenol-Codeine #3] Adverse Reaction (Verified 05/16/18 11:33) Nausea/Vom/Diarrhea terbutaline [From Brethine] Adverse Reaction (Verified 05/16/18 11:33) Other ANITHISTAMINES Allergy (Uncoded 05/16/18 11:33) Unknown Medications Ranitidine [Zantac] 150 mg PO DAILY 02/27/16 [History Confirmed 05/16/18] levothyroxine 125 mcg tablet 125 mcg PO DAILY 11/08/17 [History Confirmed 05/16/18] Albuterol Inhaler [Ventolin Hfa] 1 - 2 puff INHALATION Q4H PRN PRN 04/15/18 [History Confirmed 05/16/18] Fluoxetine [Prozac] 20 mg PO .COMPLEX 04/15/18 [History Confirmed 05/16/18] Lamotrigine [Lamotrigine Odt] 200 mg PO BID 04/15/18 [History Confirmed 05/16/18] Acetaminophen [Tylenol Tablet] 650 mg PO Q4H PRN PRN tab 04/21/18 [Rx Confirmed 05/16/18] Albuterol Aerosols [Ventolin Aerosols] 2.5 mg INHALATION Q2H PRN PRN vial.neb. 04/21/18 [Rx Confirmed 05/16/18] Amiodarone HCl [Cordarone] 200 mg PO DAILY tab 04/21/18 [Rx Confirmed 05/16/18] Aspirin [Aspirin, Baby] 81 mg PO DAILY tab.chew 04/21/18 [Rx Confirmed 05/16/18] Atorvastatin Calcium [Lipitor] 40 mg PO QHS tab 04/21/18 [Rx Confirmed 05/16/18] Diazepam [Valium] 5 mg PO DAILY PRN PRN #3 tab 04/21/18 [Rx Confirmed 05/16/18] Famotidine [Pepcid] 20 mg PO BID tab 04/21/18 [Rx Confirmed 05/16/18] Metoprolol Tartrate [Lopressor (beta doretha)] 25 mg PO BID tab 04/21/18 [Rx Confirmed 05/16/18] Nicotine [Nicoderm] 14 mg TRANSDERM. DAILY patch 04/21/18 [Rx Confirmed 05/16/18] Polyethylene Glycol 3350 [Miralax] 17 gm PO BID packet 04/21/18 [Rx Confirmed 05/16/18] Senna/Docusate Sodium [Senokot-S] 2 tab PO BID tab 04/21/18 [Rx Confirmed 05/16/18] fluticasone 50 mcg/actuation nasal spray,suspension 2 spray INTRANASAL DAILY #16 g 05/16/18 [Rx Confirmed 05/16/18] [facility] Medical History Acute diastolic (congestive) heart failure (Chronic 04/18/18) Atherosclerosis of coronary artery of [place] heart without angina pectoris (Chronic) Paroxysmal supraventricular tachycardia (Chronic) Nonrheumatic mitral valve prolapse (Chronic) Acute on chronic respiratory failure with hypoxia and hypercapnia (Chronic) NSTEMI (non-ST elevated myocardial infarction) (Resolved 04/16/18) COPD (chronic obstructive pulmonary disease) (Chronic) Bipolar disorder (Chronic) Chronic back pain (Chronic) Diverticula of colon (Chronic) GERD (gastroesophageal reflux disease) (Chronic) Hypersomnia, unspecified (Chronic) Hypothyroidism (Chronic) TMJ (temporomandibular joint syndrome) (Chronic) Hypoglycemia (Resolved) Hypokalemia (Resolved) Urinary incontinence (Inactive) Surgical History History of appendectomy (Resolved) History of section (Resolved) History of cholecystectomy (Resolved) History of dilatation and curettage (Resolved) History of left heart catheterization (Resolved 04/18/18) History of left oophorectomy (Resolved) Family History Mother Hypertension Pulmonary embolism Psychiatric care Father Lung cancer Grandmother Breast cancer Sister Asthma Seizures Psychiatric care Depression Son Depression Psychiatric care ADHD Daughter Depression Psychiatric care Bipolar 1 disorder Social History Smoking Status: Former smoker second hand exposure: Yes substance use type: does not use Review of Systems Const CONSTITUTIONAL: Negative anorexia, body ache, chills, daytime sleepiness, fever(s), night sweats, oral thrush, stops breathing during sleep, weight loss, sleeping in chair, fatigue, weight loss, weight gain, frequent colds, seasonal allergies, other, headache(s) or orthopnea EETM Ear Nose Throat Mouth: Positive hearing normal and post nasal drip; negative hard of hearing, hoarseness, dry mouth in morning, change in vision, itchy eyes, eye pain, swallowing Difficulty, ear pain, nose bleed, headache(s), mouth pain, nasal congestion, nasal discharge, sinus pain, sinus pressure, sore throat or other Cardio Cardiovascular: Negative chest pain, chest pain at rest, chest pain with activity, irregular heart rhythm, edema, shortness of breath when lying down, palpitations, murmur or other Resp Respiratory: Positive as per HPI, shortness of breath shortness of breath: Positive with activity and cough cough: Positive productive color: Positive thick and green; negative pain with cough, wheezing, chest congestion, chest tightness, pain on inspiration, inhalers, increase use of rescue inhalers, snoring, apnea or other Gastro Gastrointestional: Negative bloody stools, change in appetite, difficulty swallowing, reflux, hematemesis, melena stool, loose stool, constipation or other Genitourinary: Negative blood in urine, nocturia, pain with urination or other Musc Musculoskeletal: Negative body pain, back pain, neck pain or other Skin/Breast Skin/Breast: Negative dry skin, itching, rash, unusual bruising, breast lump or other Neuro Neurological: Negative restless legs, confusion, weakness or other Psych Psychocological: Negative abnormal sleep pattern, anxiety, thoughts of hurting self/others, hopelessness or other Lymph Lymphatic: Negative easy bleeding, easy bruising, swollen lymph nodes or other Exam Const Constitutional: Positive conversant, cooperative, in no acute respiratory distress, well developed and well nourished Head Head: Positive normocephalic and atraumatic; negative cyanosis of lips/distal nose Eyes Eye: Positive clear conjunctiva; negative nystagmus or scleral abnormality Ears Ear: Positive hearing normal and external ears normal; negative hard of hearing Nose Nose: Positive external nose normal and no nasal discharge; negative epistaxis Mouth Mouth: Positive post nasal drip, oral mucosae normal, edentulous, no lesions and posterior oropharynx is adequate; negative malodorous breath or oral thrush present Mallampati Score: I: Mallampati Score Neck Neck: Positive normal visual inspection, full ROM and trachea midline; negative lymphadenopathy, JVD or tender Chest Wall Chest: Positive symmetric chest movement and increased A/P diameter Resp lung sounds: Positive clear to auscultation, good air exchange, normal expiratory time and normal respiratory effort; negative diminished, wheezes, rhonchi, rales, dullness to percussion or wheeze present on forced exhalation Cardio Cardiac: Positive regular rate, regular rhythm, S1 normal and S2 normal; negative murmur GI GI: Positive normal to inspection and normal bowel sounds; negative distended Genitourinary: Positive deferred Musc Musculoskeletal: Positive steady gait and ROM normal; negative kyphosis or scoliosis Skin Pulmonary Skin Exam: Positive intact; negative rash, lesion, ulcers, erythema or scaly Pulses Pulse: Yes pulses normal x4 extremities Extremities Extremities: Yes capillary refill normal, Yes clubbing, No cyanosis, No edema, No stasis dermatitis Neuro Neurologic: Yes conversant, Yes no focal neuro deficits, Yes normal concentration, Yes understands questions, Yes cooperative, Yes normal cognition, Yes normal coordination Lymph Lymphatic: No lymphadenopathy, No tenderness, No cervical adenopathy, No axillary adenopathy Psych Appearance: Positive grossly normal, eye contact and well kempt Mental Status: Positive mental status grossly normal Mood: Positive manic mood Affect: Positive anxious affect Coding Level of Care Code Off vis,est,level 4 Diagnoses Centrilobular emphysema J43.2 COPD type: emphysema Emphysema type: centrilobular Acute on chronic respiratory failure with hypoxia and hypercapnia J96.21; J96.22 PND (post-nasal drip) R09.82 05/17/18 0947 <Electronically signed by Sarah DOTY> Date Sarah BRANDTC Cosigner Signature: Date (if applicable) CC: Sofy Richter DO URINALYSIS, ROUTINE Collected: 05/14/2018 Status: F Source: [place] (DIPST[place]) 6:[address] [facility] REPOSITORY Order Comment: How was Urine Obtained? Urine, Random TYPE CODE TESTS RESULT OUT OF RANGE REFERENCE UNITS LAB L400.3000 Yellow COLOR Normal Yellow LAB L400.3050 Clear Normal CLARITY Cloudy LAB L400.3200 Normal mg/dl Normal GLUCOSE, UR Normal LAB L400.3300 Negative mg/dL Normal BILIRUBIN URINE Negative LAB L400.3400 Negative mg/dl Normal KETONE UR Negative LAB L400.3465 1.002-1.030 Normal SP.GR. DIPSTX 1.020 LAB L400.3550 5.0 - 8.0 pH UR Normal 5.0 LAB L400.3600 Negative mg/dl High PROT 30 DIPSTX LAB L400.3700 Normal mg/dl Normal UROBILI Normal LAB L400.3750 Negative High NITRITE UR Positive LAB L400.3780 Negative /ul High OCCULT BLOOD-UR 150 LAB L400.3800 Negative /ul High LEUK ESTERASE 500 Performed By: #### L400.2010 #### [facility] [address] [place], [address] Observed: 05/14/2018 Status: F Source: [place] CULTURE, URINE 6:[address] [facility] REPOSITORY Urine Culture ORGANISM 1: Presumptive E. coli [place] Count >100,000 Presumptive E. coli: REACTION Amoxacillin/Clavulanic Acid $ <=2 S Ampicillin $ <=2 S Ampicillin/Sulbactam $ <=2 S Cefazolin $ <=4 S Cefepime $ <=1 S Ceftriaxone $ <=1 S Ciprofloxacin $ <=0.25 S ESBL - Ertapenim $$$ <=0.5 S Gentamicin $ <=1 S Imipenem *NF <=0.25 S Levofloxacin $ <=0.12 S Nitrofurantoin $ <=16 S Piperacillin/Tazobactam $$ <=4 S Tobramycin $ <=1 S Trimethoprim/Sulfametho $ <=20 S (NF) indicates non-formulary drug at [facility]. Approval by Infectious Disease Specialist required before non-formulary drugs may be ordered and/or dispensed. Performed By: #### M100.0650 #### [facility] [address] [place], [place], [address] EMERGENCY DEPARTMENT Observed: 05/09/2018 Status: F Source: [place] SUMMARY 4:[address] [facility] REPOSITORY [facility] Medical Records Department [address] [place] [address] Emergency Department Summary 05/09/18 1127 MR#: [id number] Acct: [id number] Name: ALEXEI FOWLER Rep #: [id number] : 1965 53 From: Dannielle Osman MD PCP: Sofy Richter DO Status: DEP ER - ER Visit Summary Date of Service: 05/09/18 Chief Complaint: Cough History of Present Illness: The patient is a 53 F with a history of COPD. Patient was admitted in October for pneumonia and respiratory failure. Today she noted cough with green colored sputum and wanted to make sure she did not have pneumonia again. She denies fever. She is supposed to be seen by the nurse practitioner in the pulmonary office today. She thought her point was at 1030. When she arrived she told her appointment we had actually been at 1015 and she was late so they would not see her. Physical Examination: Vital signs grossly unremarkable. Pulse ox is 97% on room air. Patient sitting upright in bed. She is alert and talkative. Head neck examination grossly unremarkable. Heart is regular rate and rhythm. Lung sounds are grossly clear. There is slightly diminished at the bases. Abdomen is soft nontender. Lower external examination was no calf tenderness or edema. Test Results: The chest x-ray is unremarkable with no infiltrate. Emergency Department Course and Treatment: Test results were discussed with the patient. She will continue to monitor her symptoms. If she becomes short of breath or develops fever, she is to come in immediately for repeat evaluation. She will monitor her sputum color and output. Treatment Plan: [] Disposition: Discharge Impression: Cough with history of COPD This note was generated with [employer] dictation software. It may contain incorrect words, spelling, and punctuation that were not noted in review of the chart prior to signing ED Disposition - Plan for ED Patient: Chief Complaint: Cough Referrals: Sofy Richter DO [Primary Care Provider] - What to do if you have Problems For any increased pain, shortness of breath, bleeding, nausea or vomiting, chest pain, or any unexpected problems, contact your Primary Care Provider. Call [facility] ([phone]) or report to the closest Emergency Room. Call 911 if necessary. 05/09/18 9728 <Electronically signed by Dannielle Osman MD> Date Dannielle Osman MD Cosigner Signature (If Indicated): Date CC: Sofy Rober DISCHARGE INSTRUCTION Observed: 05/09/2018 Status: F Source: [place] 1:[address] [facility] REPOSITORY [facility] Medical Records Department [address] [place] [address] Discharge Instruction 05/09/18 1303 MR#: [id number] Acct: [id number] Name: ALEXEI FOWLER Rep #: [id number] : 1965 53 From: Dannielle Osman MD PCP: Sofy Richter DO Status: REG ER ED Disposition - Plan for ED Patient: Disposition: Home or Assisted Living Chief Complaint: Cough Instructions: ED Upper Resp Infec No Abx Tx Referrals: Sofy Richter DO [Primary Care Provider] - 1 Week What to do if you have Problems For any increased pain, shortness of breath, bleeding, nausea or vomiting, chest pain, or any unexpected problems, contact your Primary Care Provider. Call [facility] ([phone]) or report to the closest Emergency Room. Call 911 if necessary. 05/09/18 1303 <Electronically signed by Dannielle Osman MD> Date Dannielle Osman MD Cosigner Signature (If Indicated): Date CC: Sofyshane Richter DO CHEST PA AND LATERAL Observed: 05/09/2018 Status: F Source: [place] 11:[address] [facility] REPOSITORY [facility] Imaging Services [address] [place] [address] Chest PA and Lateral MR#: [id number] Acct: [id number] Name: ALEXEI FOWLER Rep #: [id number] : 1965 F 53 From: Crow Gibson MD PCP: Sofy Richter DO Status: REG ER Study: Chest PA and Lateral Date of Exam: 05/09/18 Exam# [id number] Ordering Dr: Dannielle Osman MD STUDY: X-RAY CHEST REASON FOR EXAM: Female, 53 years old. Cough and shortness of breath. TECHNIQUE: PA and lateral views of the chest. COMPARISON: Comparison is made with prior study dated April 16, 2018. FINDINGS: Since prior study, the endotracheal tube and orogastric tube has been removed. The lungs are clear and expanded. There is no demonstrated pleural abnormality. Normal size heart. Normal mediastinum and ashli. Normal visualized pulmonary arteries. Normal visualized aortic arch and descending thoracic aorta. Normal visualized thoracic spine. Normal visualized ribs, clavicles, and shoulders. The patient is status post cholecystectomy. RAD/Chest PA and Lateral IMPRESSION: Normal x-ray examination of the chest. Electronically Signed: Crow Gibson MD at 12:51 EDT Tel [phone], Service support , CC: Dannielle Osman MD; Sofy Richter DO Lieutenant Colonel: Signed VENOUS DUPLEX UPPER Observed: 04/21/2018 Status: F Source: [place] EXTREMITY 6:[address] [facility] REPOSITORY [facility] Cardiovascular Services [address] [place] [address] Venous Duplex US, Unilateral 04/21/18 1031 MR#: [id number] Acct: [id number] Name: ALEXEI FOWLER Rep #: [id number] : 1965 53 From: Jorge Raman MD Attending Dr: Elena Liriano MD Status: DIS IN Ordering Dr: Brock Aguayo PA Date: 04/21/18 Location: [facility] Sex: F C Admitted: 04/15/18 Reason For Study: LUE swelling Left Proximal Left jugular vein is spontaneous, widely patent, phasic, with no intraluminal echogenicity noted. Left subclavian vein is spontaneous, widely patent, phasic, with no intraluminal echogenicity noted. Left Arm Left axillary vein is spontaneous, patent, phasic, competent, compressible and demonstrates augmentation. Left brachial vein is compressible. Cephalic vein is dilated and non-compressible from antecubital space to axillary level. Left basilic vein is compressible. Left Lower Arm Left radial vein is compressible. Left ulnar vein is compressible. < Interpretation Summary Deep veins of the left upper extremity are patent and compressible segmentally. There is no evidence of deep vein thrombosis. Acute superficial thrombophlebitis is noted in the left cephalic vein from the left antecubital space to the axillary level. The left basilic vein is patent and compressible. Ordering Physician: Brock Aguayo Referring Physician: Sofy Richter Performed By: Christen Campos RVT Reason For Study: LUE swelling < Interpretation Summary Ordering Physician: Brock Aguayo Referring Physician: Sofy Richter Performed By: Christen Campos RVT 04/21/18 1801 Date Jorge Raman MD CC: STANTON Aguayo; Elena Liriano MD; Sofy Richter DO Date Dictated: 04/21/18 1031 Date Transcribed: 04/21/18 180 Lieutenant Colonel: Signed DISCHARGE SUMMARY Observed: 04/21/2018 Status: F Source: [place] 4:[address] [facility] REPOSITORY [facility] Medical Records Department [address] [place] [address] Discharge Summary 04/21/18 1456 MR#: [id number] Acct: [id number] Name: ALEXEI FOWLER Rep #: [id number] : 1965 53 From: Brock EID PCP: Sofy Richter DO Status: DIS IN Y Location: [facility] [id number] <Brock Aguayo - Last Filed: 04/21/18 14:56> Discharge Date and Diagnosis Date of Admission: 04/15/18 Date of Discharge: 04/21/18 - Primary Discharge Diagnosis Non-ST segment elevation myocardial infarction Multifocal HCAP rhinovirus and Haemophilus influenza with severe sepsis on presentation Acute on chronic hypoxic hypercapnic respiratory failure secondary to above Supraventricular tachycardia Prediabetes Debility Tobacco abuse Bipolar GERD Mitral valve prolapse - Secondary Discharge Diagnosis Chronic Problems (Last Reviewed 12/13/17 @ 07:47 by Vanessa Zamora) Prediabetes (Chronic) Tobacco dependency (Chronic) Hypersomnia (Chronic) Urinary incontinence (Chronic) Back pain (Chronic) Neck pain (Chronic) GERD (gastroesophageal reflux disease) (Chronic) Temporomandibular joint (TMJ) pain (Chronic) COPD (chronic obstructive pulmonary disease) (Chronic) Mitral valve prolapse (Chronic) Bipolar disorder (Chronic) Hypokalemia (Chronic) Hypoglycemia (Chronic) Hypothyroidism (Chronic) History of diverticulitis (Chronic) Hospital Course and Treatment Imaging Results: RAD/Chest 1 View (Portable) IMPRESSION: Airspace opacity in the lower lobes, left greater than right. This is likely infectious in etiology. RAD/Chest 1 View (Portable) IMPRESSION: Endotracheal tube and feeding tube placement. Bilateral infiltrates or edema. Echo: Interpretation Summary No evidence for diastolic dysfunction. Normal LV size. The estimated ejection fraction is 50 %. Abnormal right ventricular diastolic function There are regional wall motion abnormalities. Mild tricuspid valve insufficiency. RAD/Chest 1 View (Portable) IMPRESSION: The support tubes are in good position. Since prior study, there has been improved aeration of both lungs with residual reticular nodular infiltrates worse on the left side. Heart cath conclusions: Moderate coronary artery disease involving the mid circumflex artery and distal circumflex artery with preserved LV ejection fraction Consultations: [facility]-cardiology Vyaigt-xyslkewq-zdjr-pulmonology Operations: None Procedures: 2-D Echocardiogram, Cardiac catheterization, Intubation Summary of Care Provided: Physical exam on day of discharge: General: Resting comfortably NAD Psych: A/Ox3 normal affect HEENT: PEARRLA AT NC Neck: Supple NT CV: RRR no m/t/r/g/h Resp: Faint diffuse wheezing, diminished throughout, bilateral faint crackles. Abd: NABSX4 Soft NT no guarding or rigidity Ext: DP2+= no edema Skin: W/D normal turgor Lymph/Heme: No active bleeding or adenopathy Neuro: CN2-12 intact Hospital course: The patient is a 53 year old F with a history of nicotine abuse, COPD, bipolar, GERD, who presented to the emergency room with increased shortness of breath, confusion, decreased level of consciousness. She had recently been discharged from [facility] after being treated for pneumonia. 2 was found to have bilateral pneumonia, mildly elevated troponin, mild EKG changes, and was found to have a run of SVT in the emergency room. SVT was treated with IV metoprolol. She was admitted to the, intubated, placed on a ventilator on a dipper Van and fentanyl drip. She met severe sepsis criteria with fever, tachycardia, hypoxia, tachypnea, and lactic acidosis with bilateral lower lobe infiltrates. She was placed on broad-spectrum antibiotics and critical care/pulmonology was consulted. She was also placed on Solu-Medrol and aerosol therapy. An echocardiogram was obtained and demonstrated EF of 50%, regional wall abnormalities, abnormal RV diastolic dysfunction. On April 16 she was extubated successfully. On April 18 she underwent a cardiac catheterization. She had moderate CAD no intervention was indicated, is advised that she have aggressive medical therapy only. She was transferred to the PCU and remained stable. She remained significantly debilitated. Her cultures demonstrated rhinovirus and Haemophilus influenza. Her antibiotics were changed to oral Cefdinir. She will complete 10 days of this. She will continue atorvastatin, aspirin, amiodarone, metoprolol for her coronary artery disease. She will complete a prednisone taper. She will need to follow-up with cardiology and pulmonology as an outpatient. She is currently still requiring oxygen at 4 L nasal cannula. She qualified for detention placement and was agreeable. Prior to discharge she developed pain and induration over her left proximal arm, and ultrasound was performed which showed superficial venous thrombosis of the cephalic vein. We recommend warm compresses and elevation until this resolves. Also of note her hemoglobin A1c was checked with her cardiac workup, she has an A1c of 5.8 at this time demonstrating prediabetes. Recommend a diabetic diet and for her to have her A1c rechecked in 6 weeks. If it remains abnormal at that time she should initiate diabetic medications given her underlying CAD and recent NSTEMI. She was transitioned to detention in stable condition. This patient was seen by Brock Aguayo PA-C under the supervision of Doctor Liriano. [] Home Medications: Medications to take at Discharge Ranitidine [Zantac] 150 mg PO DAILY 02/27/16 levothyroxine 125 mcg tablet 125 mcg PO DAILY 11/08/17 Albuterol Inhaler [Ventolin Hfa] 1 - 2 puff INHALATION Q4H PRN PRN 04/15/18 Fluoxetine [Prozac] 20 mg PO .COMPLEX 04/15/18 Lamotrigine [Lamotrigine Odt] 200 mg PO BID 04/15/18 Acetaminophen [Tylenol Tablet] 650 mg PO Q4H PRN PRN tablet 04/21/18 Albuterol Aerosols [Ventolin Aerosols] 2.5 mg INHALATION Q2H PRN PRN vial.neb. 04/21/18 Amiodarone HCl [Cordarone] 200 mg PO DAILY tablet 04/21/18 Aspirin [Aspirin, Baby] 81 mg PO DAILY tab.chew 04/21/18 Atorvastatin Calcium [Lipitor] 40 mg PO QHS tablet 04/21/18 Cefdinir [Omnicef [equiv]] 300 mg PO Q12 #7 capsule 04/21/18 Diazepam [Valium] 5 mg PO DAILY PRN PRN #3 tab 04/21/18 Famotidine [Pepcid] 20 mg PO BID tablet 04/21/18 Ipratropium/Albuterol Sulfate [Duoneb] 3 ml INHALATION Q4H.RT ampul.neb 04/21/18 Metoprolol Tartrate [Lopressor (beta doretha)] 25 mg PO BID tablet 04/21/18 Nicotine [Nicoderm] 14 mg TRANSDERM. DAILY patch 04/21/18 Polyethylene Glycol 3350 [Miralax] 17 gm PO BID packet 04/21/18 Prednisone 10 mg PO DAILY #15 tablet 04/21/18 Senna/Docusate Sodium [Senokot-S] 2 tablet PO BID tablet 04/21/18 Following Prescrptions Were Given to Patient: Cefdinir [Omnicef [equiv]] 300 mg PO Q12 #7 capsule Diazepam [Valium] 5 mg PO DAILY PRN PRN #3 tab PRN Reason: Anxiety Prednisone 10 mg PO DAILY #15 tablet Primary Care Physician: Sofy Richter DO [Primary Care Provider] - Please follow up with your Primary Care Physician in: 2 weeks Please Follow Up With: Yamil Merino MD When: 2 weeks Please Follow Up With: Amadou Vann MD When: 2 weeks Medical Necessity - Tobacco Use Smoking Status: Former smoker Meaningful Use Info Meaningful Use Diagnoses (Choose all that apply): AMI - AMI Aspirin given w/in 24hrs of arrival?: Yes ASA at discharge?: Yes Statins at discharge?: Yes John/ARB at discharge?: No Reason John/ARB not ordered:: Hypotension Beta Doretha at discharge?: Yes Done w/ Acute [place] measure.: Yes <Deandra,[place] - Last Filed: 04/21/18 16:33> Discharge Date and Diagnosis - Secondary Discharge Diagnosis Chronic Problems (Last Reviewed 12/13/17 @ 07:47 by Vanessa Zamora) Prediabetes (Chronic) Tobacco dependency (Chronic) Hypersomnia (Chronic) Urinary incontinence (Chronic) Back pain (Chronic) Neck pain (Chronic) GERD (gastroesophageal reflux disease) (Chronic) Temporomandibular joint (TMJ) pain (Chronic) COPD (chronic obstructive pulmonary disease) (Chronic) Mitral valve prolapse (Chronic) Bipolar disorder (Chronic) Hypokalemia (Chronic) Hypoglycemia (Chronic) Hypothyroidism (Chronic) History of diverticulitis (Chronic) Hospital Course and Treatment Summary of Care Provided: The patient is a 53 year old F [] Discharge Diet: Low fat/ Low Cholesterol, 2000 mg Sodium Diet Minutes spent on discharge:: 35 Patient Condition:: Stable Meaningful Use Info Meaningful Use Diagnoses (Choose all that apply): None applicable Code Visit Inpatient E AND M: 67930 Disch Hosp 04/21/18 1510 <Electronically signed by Brock EID> Date Brcok EID 04/21/18 1633<Electronically signed by Elena Liriano MD> Cosigner Signature (if applicable): Date Elena Liriano MD CC: STANTON Aguayo; Elena Liriano MD; Sofy Richter DO Signed TRANSFER TO [facility] Observed: 04/21/2018 Status: F Source: [facility] 12:[address] [facility] REPOSITORY [facility] Medical Records Department [address] [place] [address] [facility] MR#: [id number] Acct: [id number] Name: ALEXEI FOWLER Rep #: [id number] : 1965 53 From: Brock EID PCP: Sofy Richter DO Status: ADM IN ALEXEI FOWLER (Patient) (Health Ins. Claim No.) (Day of Discharge to Facility) Certification of patient admission REQUIRED AT TIME OF ADMISSION. I CERTIFY THAT POST-HOSPITAL ECF SERVICES ARE REQUIRED TO BE GIVEN ON AN IN-PATIENT BASIS BECAUSE OF THE ABOVE NAMED PATIENT'S NEED FOR SENIOR LIVING CARE ON A CONTINUING BASIS FOR THE CONDITION(S) FOR WHICH HE/SHE WAS RECEIVING IN-PATIENT HOSPITAL SERVICES PRIOR TO HIS/HER TRANSFER TO THE [facility]. 04/21/18 1111 <Electronically signed by Brock EID> Date Brock EID ADDENDUM by Elena Liriano MD on 04/21/18 at 1239 Code Visit Elevate left upper extremity on pillows. May apply cold compresses and after 2 days, warm compresses if needed for treatment of superficial thrombophlebitis and superfiicial venous thrombosis. 04/21/18 1239 <Electronically signed by Elena Liriano MD> Date Elena Liriano MD cc: Amadou Vann MD; Yamil Merino MD; Sofy Richter DO * Signed - Diet 04/17/18 09:49 Diet: Cardiac/Low Cholesterol Is pt able to select menu?: No - Routine Orders/Code Status Suppository Type: Dulcolax 10mg Suppository Frequency: Daily PRN O2 Frequency: Continuous Keep PO Greater than or Equal to (%): 90 Routine Lab Work: CBC - 3 days, BMP - 3 days Code Status: Full Code - Therapies Physical Therapy: Eval and Treat Occupational Therapy: Eval and Treat - Problem/Diagnosis (1) NSTEMI (non-ST elevated myocardial infarction) Status: Acute Current Visit: Yes (2) Multifocal possible HCAP Status: Acute Current Visit: Yes (3) Acute on chronic respiratory failure with hypoxia and hypercapnia Status: Acute Current Visit: Yes (4) SVT (supraventricular tachycardia) Status: Acute Current Visit: Yes (5) Superficial venous thrombosis of arm Status: Acute Current Visit: Yes (6) Prediabetes Status: Chronic Current Visit: Yes (7) GERD (gastroesophageal reflux disease) Status: Chronic Current Visit: No (8) COPD (chronic obstructive pulmonary disease) Status: Chronic Current Visit: No (9) Bipolar disorder Status: Chronic Current Visit: No (10) Hypothyroidism Status: Chronic Current Visit: No - Allergies/Procedures Done in Hospital Allergies/Adverse Reactions: Allergies amoxicillin Allergy (Severe, Verified 10/26/17 07:16) Shortness of breath AND HIVES azithromycin Allergy (Severe, Verified 10/26/17 07:17) Shortness of breath AND HIVES clindamycin Allergy (Severe, Verified 10/26/17 07:20) Shortness of breath AND HIVES doxycycline Allergy (Severe, Verified 10/26/17 07:20) Shortness of breath AND HIVES erythromycin lactobionate [From Erythrocin] Allergy (Severe, Verified 10/26/17 07:20) Shortness of breath AND HIVES Penicillins Allergy (Severe, Verified 10/26/17 07:20) Shortness of breath AND HIVES Sulfa (Sulfonamide Antibiotics) Allergy (Severe, Verified 10/26/17 07:20) Shortness of breath AND HIVES sulfamethoxazole [From Bactrim] Allergy (Severe, Verified 10/26/17 07:20) Shortness of breath AND HIVES trimethoprim [From Bactrim] Allergy (Severe, Verified 10/26/17 07:20) Shortness of breath AND HIVES tramadol Allergy (Verified 10/23/17 16:51) Unknown codeine [From Tylenol-Codeine #3] Adverse Reaction (Verified 10/23/17 16:51) Nausea/Vom/Diarrhea terbutaline [From Brethine] Adverse Reaction (Verified 10/23/17 16:51) Other ANITHISTAMINES Allergy (Uncoded 10/23/17 16:51) Unknown Procedures: 2-D Echocardiogram, Cardiac catheterization - Type of Care/Length of Stay Estimated LOS: Convalescent Care Less Than 30 days Type of Care Needed: Skilled Rehab Potential: Fair Prognosis: Fair - Additional Orders/Day of Discharge Day of Discharge: 04/21/18 - Dietary and Speech Recommendations Dietitian Recommendations/Changes: Rec cardiac/low cholesterol when ok for PO intake. - Follow Up Care Primary Care Physician: Sofy Richter DO [Primary Care Provider] - Please follow up with your Primary Care Physician in: 2 weeks Please Follow Up With: Yamil Merino MD When: 2 weeks Please Follow Up With: Amadou Vann MD When: 2 weeks 04/21/18 1111 <Electronically signed by Brock EID> Date Brock EID CC: Amadou Vann MD; Yamil Merino MD; Sofy Richter DO Signed CBC W/DIFF, AUTOMATED Collected: 04/21/2018 Status: F Source: [place] 5:[address] [facility] REPOSITORY TYPE CODE TESTS RESULT OUT OF RANGE REFERENCE UNITS LAB L100.1000 4.4-11.0 K/mm3 High WBC 12.1 LAB L100.1200 4.2-5.4 M/mm3 Low RBC 3.60 LAB L100.1300 12.0-15.0 g/dl Low HGB 11.1 LAB L100.1400 37-47 % Low HCT 34.6 LAB L100.1500 81-99 fL Normal MCV 96.1 LAB L100.1600 27.0-32.0 pg Normal MCH 30.8 LAB L100.1700 32-36 g/gl Normal MCHC 32.1 LAB L100.1810 11.6-14.6 % Normal RDW CV 13.1 LAB L100.1820 35.1-43.9 fl High RDW SD 46.5 LAB L100.1900 150-450 K/mm3 Normal PLT 214 LAB L100.2000 6.2-12.0 fl Normal MPV 10.0 LAB L100.2100 47-70 % High NEUT% 73.1 LAB L100.2200 19-41 % Low LY% 18.0 LAB L100.2300 0-10 % Normal MONO% 6.4 LAB L100.2400 0-5 % Normal EO% 0.7 LAB L100.2500 0-1 % Normal BASO% 0.2 LAB L100.2550 0.0-0.9 % High IM GRAN % 1.600 Result Comment: IG% - Immature Granulocytes (promyelocytes, myelocytes and metamyelocytes) > 1% indicates that a LEFT SHIFT is Present. LAB L100.2620 2.0-7.7 X10 3/uL High Absolute Neut 8.9 LAB L100.2720 0.83-4.51 X10 3/ul Normal Absolute Lymph 2.18 Performed By: #### L100.0100 #### [facility] [address] [place], [address] BASIC METABOLIC Collected: 04/21/2018 Status: F Source: [place] PROFILE (BMP) 5:[address] [facility] REPOSITORY TYPE CODE TESTS RESULT OUT OF RANGE REFERENCE UNITS LAB L501.0100 74-106 mg/dL Normal GLU 94 Result Comment: Please note revised GLUCOSE reference range effective 2017. LAB L501.1000 7-18 mg/dL Normal BUN 12 LAB L501.1100 0.55-1.02 mg/dL Low CREAT,SERUM 0.51 Result Comment: The validity of the calculated GFR AND GFRAA in patients over 70 years has not been determined. Clinical correlation is essential. LAB L501.1110 >60 mL/min Normal EST GFR 134 Result Comment: Non- GFR Calc LAB L501.1115 >60 mL/min Normal EST GFR - AA 162 Result Comment: GFR Calc LAB L501.1255 ml/min Normal Estimated CRCL 106.74 LAB L501.1300 10-20 RATIO High BUN/CRE 23.5 LAB L501.2200 8.5-10 mg/dL Low .1 CA 8.0 LAB L501.5300 136-14 mmol/L 5 NA Normal 140 LAB L501.5600 3.5-5. mmol/L 1 K Normal 3.5 LAB L501.5900 98-107 mmol/L CL Normal 98 LAB L501.6100 21.0-3 mmol/L High 2.0 CO2 35.0 LAB L501.6200 5-15 GAP Normal 7 Performed By: #### L500.2500 #### [facility] [address] [place], [place], [address] BEDSIDE GLUCOSE Collected: 04/20/2018 Status: F Source: [place] 11:[address] [facility] REPOSITORY TYPE CODE TESTS RESULT OUT OF REFERENCE UNITS RANGE LAB L501.080 70-110 mg/dL High BEDSIDE GLU 160 Result Comment: MANAGEMENT OF PATIENT CARE PER NURSING PROTOCOL Performed By: #### L501.080 #### [facility] Point of Care [address] [facility]. [place], [place] [address] BEDSIDE GLUCOSE Collected: 04/20/2018 Status: F Source: [place] 6:[address] [facility] REPOSITORY TYPE CODE TESTS RESULT OUT OF RANGE REFERENCE UNITS LAB L501.080 70-110 mg/dL Normal BEDSIDE GLU 96 Result Comment: MANAGEMENT OF PATIENT CARE PER NURSING PROTOCOL Performed By: #### L501.080 #### [facility] Point of Care [address] [place], [place] [address] BASIC METABOLIC Collected: 04/20/2018 Status: F Source: [place] PROFILE (BMP) 5:[address] [facility] REPOSITORY TYPE CODE TESTS RESULT OUT OF RANGE REFERENCE UNITS LAB L501.0100 74-106 mg/dL Normal GLU 75 Result Comment: Please note revised GLUCOSE reference range effective 2017. LAB L501.1000 7-18 mg/dL Normal BUN 7 LAB L501.1100 0.55-1.02 mg/dL Low CREAT,SERUM 0.41 Result Comment: The validity of the calculated GFR AND GFRAA in patients over 70 years has not been determined. Clinical correlation is essential. LAB L501.1110 >60 mL/min Normal EST GFR 174 Result Comment: Non- GFR Calc LAB L501.1115 >60 mL/min Normal EST GFR - AA 211 Result Comment: GFR Calc LAB L501.1255 ml/min Normal Estimated CRCL 132.78 LAB L501.1300 10-20 RATIO BUN/CRE Normal 17.2 LAB L501.2200 8.5-10 mg/dL Low .1 CA 7.9 LAB L501.5300 136-14 mmol/L 5 NA Normal 145 LAB L501.5600 3.5-5. mmol/L Low 1 K 3.3 LAB L501.5900 98-107 mmol/L CL Normal 98 LAB L501.6100 21.0-3 mmol/L High 2.0 CO2 41.0 LAB L501.6200 5-15 GAP Normal 6 Performed By: #### L500.2500 #### [facility] [address] [place], [address] CBC W/DIFF, AUTOMATED Collected: 04/20/2018 Status: C Source: [place] 5:[address] [facility] REPOSITORY TYPE CODE TESTS RESULT OUT OF RANGE REFERENCE UNITS LAB L100.1000 4.4-11.0 K/mm3 High WBC 13.2 LAB L100.1200 4.2-5.4 M/mm3 Low RBC 3.64 LAB L100.1300 12.0-15.0 g/dl Low HGB 11.1 LAB L100.1400 37-47 % Low HCT 35.3 LAB L100.1500 81-99 fL Normal MCV 97.0 LAB L100.1600 27.0-32.0 pg Normal MCH 30.5 LAB L100.1700 32-36 g/gl Low MCHC 31.4 LAB L100.1810 11.6-14.6 % Normal RDW CV 13.3 LAB L100.1820 35.1-43.9 fl High RDW SD 47.5 LAB L100.1900 150-450 K/mm3 Normal PLT 210 LAB L100.2000 6.2-12.0 fl Normal MPV 10.3 LAB L100.2100 47-70 % High NEUT% 77.9 LAB L100.2200 19-41 % Low LY% 13.8 LAB L100.2300 0-10 % Normal MONO% 5.5 LAB L100.2400 0-5 % Normal EO% 0.5 LAB L100.2500 0-1 % Normal BASO% 0.2 LAB L100.2550 0.0-0.9 % High IM GRAN % 2.100 Result Comment: IG% - Immature Granulocytes (promyelocytes, myelocytes and metamyelocytes) > 1% indicates that a LEFT SHIFT is Present. LAB L100.2620 2.0-7.7 X10 3/uL High Absolute Neut 10.3 LAB L100.2720 0.83-4.51 X10 3/ul Normal Absolute Lymph 1.82 LAB L100.9900 Normal PATH REV Reviewed Result Comment: Neutrophilic leukocytosis with left shift. Clinical correlation necessary. Polo Clinton M.D. 04/23/18 AMENDED REPORT 04/23/18 0941 PATH REV previously reported as: February Performed By: #### L100.0100 #### [facility] [address] [place], [address] HEMOGLOBIN A1C Collected: 04/20/2018 Status: F Source: [place] 5:[address] [facility] REPOSITORY TYPE CODE TESTS RESULT OUT OF RANGE REFERENCE UNITS LAB L501.9985 4.2-6.3 % Normal HGB A1C 5.8 Performed By: #### L501.9985 #### [facility] [address] [place], [address] BEDSIDE GLUCOSE Collected: 04/19/2018 Status: F Source: [place] 10:[address] [facility] REPOSITORY TYPE CODE TESTS RESULT OUT OF RANGE REFERENCE UNITS LAB L501.080 70-110 mg/dL Normal BEDSIDE GLU 103 Result Comment: MANAGEMENT OF PATIENT CARE PER NURSING PROTOCOL Performed By: #### L501.080 #### [facility] Point of Care [address] [place] [address] BEDSIDE GLUCOSE Collected: 04/19/2018 Status: F Source: [place] 4:[address] [facility] REPOSITORY TYPE CODE TESTS RESULT OUT OF RANGE REFERENCE UNITS LAB L501.080 70-110 mg/dL Normal BEDSIDE GLU 92 Result Comment: MANAGEMENT OF PATIENT CARE PER NURSING PROTOCOL Performed By: #### L501.080 #### [facility] Point of Care [address] [place] [address] BEDSIDE GLUCOSE Collected: 04/19/2018 Status: F Source: [place] 11:[address] [facility] REPOSITORY TYPE CODE TESTS RESULT OUT OF RANGE REFERENCE UNITS LAB L501.080 70-110 mg/dL Normal BEDSIDE GLU 96 Result Comment: MANAGEMENT OF PATIENT CARE PER NURSING PROTOCOL Performed By: #### L501.080 #### [facility] Point of Care [address] [place] [address] BEDSIDE GLUCOSE Collected: 04/19/2018 Status: F Source: [place] 6:[address] [facility] REPOSITORY TYPE CODE TESTS RESULT OUT OF RANGE REFERENCE UNITS LAB L501.080 70-110 mg/dL Normal BEDSIDE GLU 103 Result Comment: MANAGEMENT OF PATIENT CARE PER NURSING PROTOCOL Performed By: #### L501.080 #### [facility] Point of Care [address] [place] [address] BASIC METABOLIC Collected: 04/19/2018 Status: F Source: [place] PROFILE (BMP) 6:[address] [facility] REPOSITORY TYPE CODE TESTS RESULT OUT OF RANGE REFERENCE UNITS LAB L501.0100 74-106 mg/dL Normal GLU 91 Result Comment: Please note revised GLUCOSE reference range effective 2017. LAB L501.1000 7-18 mg/dL Normal BUN 15 LAB L501.1100 0.55-1.02 mg/dL Low CREAT,SERUM 0.45 Result Comment: The validity of the calculated GFR AND GFRAA in patients over 70 years has not been determined. Clinical correlation is essential. LAB L501.1110 >60 mL/min Normal EST GFR 154 Result Comment: Non- GFR Calc LAB L501.1115 >60 mL/min Normal EST GFR - AA 186 Result Comment: GFR Calc LAB L501.1255 ml/min Normal Estimated CRCL 120.97 LAB L501.1300 10-20 RATIO High BUN/CRE 33.0 LAB L501.2200 8.5-10 mg/dL Low .1 CA 7.8 LAB L501.5300 136-14 mmol/L 5 NA Normal 145 LAB L501.5600 3.5-5. mmol/L 1 K Normal 3.5 LAB L501.5900 98-107 mmol/L CL Normal 103 LAB L501.6100 21.0-3 mmol/L High 2.0 CO2 37.0 LAB L501.6200 5-15 GAP Normal 5 Performed By: #### L500.2500, L501.2300, L501.5200 #### [facility] [address] [place], [place], [id number] PHOSPHORUS Collected: 04/19/2018 Status: F Source: [place] 6:[address] [facility] REPOSITORY TYPE CODE TESTS RESULT OUT OF RANGE REFERENCE UNITS LAB L501.2300 2.5-4.9 mg/dL Normal PHOS 2.7 Performed By: #### L500.2500, L501.2300, L501.5200 #### [facility] [address] [facility] [place], [place], [id number] MAGNESIUM Collected: 04/19/2018 Status: F Source: [place] 6:[address] [facility] REPOSITORY TYPE CODE TESTS RESULT OUT OF RANGE REFERENCE UNITS LAB L501.5200 1.6-2.6 mg/dL Normal MG 2.3 Performed By: #### L500.2500, L501.2300, L501.5200 #### [facility] [address] [place], [address] CBC W/DIFF, AUTOMATED Collected: 04/19/2018 Status: C Source: [place] 6:[address] [facility] REPOSITORY TYPE CODE TESTS RESULT OUT OF RANGE REFERENCE UNITS LAB L100.1000 4.4-11.0 K/mm3 High WBC 14.2 LAB L100.1200 4.2-5.4 M/mm3 Low RBC 3.32 LAB L100.1300 12.0-15.0 g/dl Low HGB 10.3 LAB L100.1400 37-47 % Low HCT 32.5 LAB L100.1500 81-99 fL Normal MCV 97.9 LAB L100.1600 27.0-32.0 pg Normal MCH 31.0 LAB L100.1700 32-36 g/gl Low MCHC 31.7 LAB L100.1810 11.6-14.6 % Normal RDW CV 13.6 LAB L100.1820 35.1-43.9 fl High RDW SD 46.9 LAB L100.1900 150-450 K/mm3 Normal PLT 219 LAB L100.2000 6.2-12.0 fl Normal MPV 10.0 LAB L100.3100 MANUAL DIFF Normal CELLS COUNTED 100 LAB L100.3200 47-70 % 68 Normal SEGS LAB L100.3300 0-5 % 3 Normal BAND LAB L100.3400 0-1 % 1 Normal META LAB L100.3800 19-41 % 24 Normal LYMPH LAB L100.3900 0-10 % 4 Normal MONOCYTE LAB L100.5500 ADEQ Normal PLT EST ADEQUATE LAB L100.7000 NORM C AND C NORMAL Normal RED CELL MORPH NORM C+C LAB L100.2620 2.0-7.7 X10 3/uL High Absolute Neut 10.1 LAB L100.2720 0.83-4.51 X10 3/ul Normal Absolute Lymph 3.40 LAB L100.9900 Normal PATH REV Reviewed Result Comment: Leukocytosis. Clinical correlation necessary. Polo Clinton M.D. 04/19/18 AMENDED REPORT 04/19/18 1048 PATH REV previously reported as: May foll Performed By: #### L100.0100 #### [facility] [address] [place], [address] BEDSIDE GLUCOSE Collected: 04/18/2018 Status: F Source: [place] 11:[address] [facility] REPOSITORY TYPE CODE TESTS RESULT OUT OF REFERENCE UNITS RANGE LAB L501.080 70-110 mg/dL High BEDSIDE GLU 115 Result Comment: MANAGEMENT OF PATIENT CARE PER NURSING PROTOCOL Performed By: #### L501.080 #### [facility] Point of Care [address] [place] [address] BEDSIDE GLUCOSE Collected: 04/18/2018 Status: F Source: [place] 5:[address] [facility] REPOSITORY TYPE CODE TESTS RESULT OUT OF REFERENCE UNITS RANGE LAB L501.080 70-110 mg/dL High BEDSIDE GLU 138 Result Comment: MANAGEMENT OF PATIENT CARE PER NURSING PROTOCOL Performed By: #### L501.080 #### [facility] Point of Care [address] [place] [address] 12 LEAD ELECTROCARDIOGRAM Observed: 04/18/2018 Status: F Source: [place] 1:[address] [facility] REPOSITORY [facility] Cardiovascular Services [address] [place] [address] 12 Lead EKG 04/15/18 1645 MR#: [id number] Acct: [id number] Name: ALEXEI FOWLER Rep #: [id number] : 1965 53 From: Gerson Veliz MD Attending Dr: Nicki Chua MD Status: ADM IN Ordering Dr: Ventura Baez MD Date: 04/15/18 Location: U Sex: F C Admitted: 04/15/18 Test Reason : SOB Blood Pressure : / mmHG Vent. Rate : 117 BPM Atrial Rate : 117 BPM P-R Int : 130 ms QRS Dur : 076 ms QT Int : 324 ms P-R-T Axes : 079 043 067 degrees QTc Int : 451 ms Sinus tachycardia Nonspecific ST abnormality Abnormal ECG Confirmed by ANDREA PALMER, GERSON ([id number]), editor book LURDES CORADO ([id number]) on 04/18/2018 1:25:12 PM Referred By: CRAIG Confirmed By:GERSON VELIZ MD 04/18/18 1325 Date Gerson Veliz MD CC: Sofy Richter DO; Nicki Chua MD; Ventura Baez MD Signed BEDSIDE GLUCOSE Collected: 04/18/2018 Status: F Source: [place] 11:[address] [facility] REPOSITORY TYPE CODE TESTS RESULT OUT OF REFERENCE UNITS RANGE LAB L501.080 70-110 mg/dL High BEDSIDE GLU 135 Result Comment: MANAGEMENT OF PATIENT CARE PER NURSING PROTOCOL Performed By: #### L501.080 #### [facility] Point of Care [address] [facility] [place] [address] ,URINE Collected: 04/18/2018 Status: F Source: [place] 8:[address] [facility] REPOSITORY Order Comment: Order Date: 04/18/18 Has pt arrived? Y Reason for Laboratory Test TEST FOR HEART CATH TYPE CODE TESTS RESULT OUT OF REFERENCE UNITS RANGE LAB L400.8000 Negative Normal HCGUQUAL Negative Result Comment: Very dilute urine specimens, as indicated by a low specific gravity, may not contain retention representative levels of hCG. If is still suspected, a first morning urine specimen should be collected 48 hours later and tested. Performed By: #### L400.7600 #### [facility] [address] [place] [place], [address] CBC W/DIFF, AUTOMATED Collected: 04/18/2018 Status: C Source: [place] 5:[address] [facility] REPOSITORY Order Comment: SPECIMEN OBTAINED FROM LINE DRAW TYPE CODE TESTS RESULT OUT OF RANGE REFERENCE UNITS LAB L100.1000 4.4-11.0 K/mm3 High WBC 11.7 LAB L100.1200 4.2-5.4 M/mm3 Low RBC 3.45 LAB L100.1300 12.0-15.0 g/dl Low HGB 10.8 LAB L100.1400 37-47 % Low HCT 33.4 LAB L100.1500 81-99 fL Normal MCV 96.8 LAB L100.1600 27.0-32.0 pg Normal MCH 31.3 LAB L100.1700 32-36 g/gl Normal MCHC 32.3 LAB L100.1810 11.6-14.6 % Normal RDW CV 13.2 LAB L100.1820 35.1-43.9 fl High RDW SD 44.6 LAB L100.1900 150-450 K/mm3 Normal PLT 214 LAB L100.2000 6.2-12.0 fl Normal MPV 10.5 LAB L100.3100 MANUAL DIFF Normal CELLS COUNTED 100 LAB L100.3200 47-70 % High 84 SEGS LAB L100.3300 0-5 % High 6 BAND LAB L100.3400 0-1 % High 2 META LAB L100.3500 0-0 High 1 MYELO LAB L100.3800 19-41 % Low 4 LYMPH LAB L100.3900 0-10 % 3 Normal MONOCYTE LAB L100.4800 2+ Normal TOXIC GRAN LAB L100.5300 2+ Normal VACUOL LAB L100.5500 ADEQ Normal PLT EST ADEQUATE LAB L100.7000 NORM C AND C NORMAL Normal RED CELL MORPH NORM C+C LAB L100.2620 2.0-7.7 X10 3/uL High Absolute Neut 10.5 LAB L100.2720 0.83-4.51 X10 3/ul Low Absolute Lymph 0.46 LAB L100.9900 Normal PATH REV Reviewed Result Comment: Neutrophilic leukocytosis with left shift. Normocytic anemia. Clinical correlation necessary. Polo Clinton M.D. 04/19/18 AMENDED REPORT 04/19/18 1045 PATH REV previously reported as: February derick Performed By: #### L100.0100 #### [facility] [address] [place], [address] BASIC METABOLIC Collected: 04/18/2018 Status: F Source: [place] PROFILE ([facility]) 5:[address] [facility] REPOSITORY Order Comment: SPECIMEN OBTAINED FROM LINE DRAW TYPE CODE TESTS RESULT OUT OF RANGE REFERENCE UNITS LAB L501.0100 74-106 mg/dL High GLU 164 Result Comment: Fasting Glucose result greater than or equal to 126 mg/dL suggests DIABETES MELLITUS per A.D.A. criteria. Please note revised GLUCOSE reference range effective 2017. LAB L501.1000 7-18 mg/dL Normal BUN 17 LAB L501.1100 0.55-1.02 mg/dL Low CREAT,SERUM 0.53 Result Comment: The validity of the calculated GFR AND GFRAA in patients over 70 years has not been determined. Clinical correlation is essential. LAB L501.1110 >60 mL/min Normal EST GFR 130 Result Comment: Non- GFR Calc LAB L501.1115 >60 mL/min Normal EST GFR - AA 157 Result Comment: GFR Calc LAB L501.1255 ml/min Normal Estimated CRCL 102.71 LAB L501.1300 10-20 RATIO High BUN/CRE 32.3 LAB L501.2200 8.5-10 mg/dL .1 CA Normal 8.5 LAB L501.5300 136-14 mmol/L 5 NA Normal 142 LAB L501.5600 3.5-5. mmol/L 1 K Normal 3.6 LAB L501.5900 98-107 mmol/L CL Normal 100 LAB L501.6100 21.0-3 mmol/L High 2.0 CO2 38.0 LAB L501.6200 5-15 Low GAP 4 Performed By: #### L500.2500, L501.2300, L501.5200 #### [facility] [address] [facility] [place], [place], [id number] PHOSPHORUS Collected: 04/18/2018 Status: F Source: [place] 5:[address] [facility] REPOSITORY Order Comment: SPECIMEN OBTAINED FROM LINE DRAW TYPE CODE TESTS RESULT OUT OF RANGE REFERENCE UNITS LAB L501.2300 2.5-4.9 mg/dL Low PHOS 2.2 Performed By: #### L500.2500, L501.2300, L501.5200 #### [facility] [address] [place], [place], [id number] MAGNESIUM Collected: 04/18/2018 Status: F Source: [place] 5:[address] [facility] REPOSITORY Order Comment: SPECIMEN OBTAINED FROM LINE DRAW TYPE CODE TESTS RESULT OUT OF RANGE REFERENCE UNITS LAB L501.5200 1.6-2.6 mg/dL Normal MG 2.4 Performed By: #### L500.2500, L501.2300, L501.5200 #### [facility] [address] [place], [address] BEDSIDE GLUCOSE Collected: 04/17/2018 Status: F Source: [place] 10:[address] [facility] REPOSITORY TYPE CODE TESTS RESULT OUT OF REFERENCE UNITS RANGE LAB L501.080 70-110 mg/dL High BEDSIDE GLU 163 Result Comment: MANAGEMENT OF PATIENT CARE PER NURSING PROTOCOL Performed By: #### L501.080 #### [facility] Point of Care [address] [place] [address] BEDSIDE GLUCOSE Collected: 04/17/2018 Status: F Source: [place] 4:[address] [facility] REPOSITORY TYPE CODE TESTS RESULT OUT OF REFERENCE UNITS RANGE LAB L501.080 70-110 mg/dL High BEDSIDE GLU 159 Result Comment: MANAGEMENT OF PATIENT CARE PER NURSING PROTOCOL Performed By: #### L501.080 #### [facility] Point of Care [address] [place] [address] BEDSIDE GLUCOSE Collected: 04/17/2018 Status: F Source: [place] 11:[address] [facility] REPOSITORY TYPE CODE TESTS RESULT OUT OF REFERENCE UNITS RANGE LAB L501.080 70-110 mg/dL High BEDSIDE GLU 172 Result Comment: MANAGEMENT OF PATIENT CARE PER NURSING PROTOCOL Performed By: #### L501.080 #### [facility] Point of Care [address] [place] [address] CONSULTATION Observed: 04/17/2018 Status: F Source: [place] 8:[address] [facility] REPOSITORY [facility] Medical Records Department [address] [place] [address] Consultation 04/16/18 0726 MR#: [id number] Acct: [id number] Name: MALCOLMALEXEI J Rep #: [id number] : 1965 53 From: Amadou Vann MD PCP: Sofy Richter DO Status: ADM IN Y Location: ICU ICU04-1 Problem List (1) NSTEMI (non-ST elevated myocardial infarction) Status: Acute (2) SVT (supraventricular tachycardia) Status: Acute (3) Acute on chronic respiratory failure with hypoxia and hypercapnia Status: Acute (4) Multifocal possible HCAP Status: Acute (5) Tobacco dependency Status: Chronic (6) Hypersomnia Status: Chronic (7) History of cholecystectomy Status: Resolved (8) History of appendectomy Status: Resolved (9) History of dilatation and curettage Status: Resolved (10) History of left oophorectomy Status: Resolved (11) History of section Status: Resolved (12) GERD (gastroesophageal reflux disease) Status: Chronic Qualifiers: Esophagitis presence: esophagitis presence not specified Qualified Code(s): K21.9 - Gastro-esophageal reflux disease without esophagitis (13) COPD (chronic obstructive pulmonary disease) Status: Chronic Qualifiers: COPD type: emphysema Emphysema type: centrilobular Qualified Code(s): J43.2 - Centrilobular emphysema (14) Mitral valve prolapse Status: Chronic (15) Bipolar disorder Status: Chronic (16) History of diverticulitis Status: Chronic Reason for Consult Date of Consultation: 04/16/18 Reason for Consultation: Acute on chronic respiratory failure History of Present Illness: The patient is a 53 year old F, with past medical history listed below and known to our outpatient office, who presented to [facility] on 04/15/2018 secondary to decreased mentation, cough and difficulty breathing. Patient reportedly is on 4 L nasal cannula at baseline and presented to the emergency room with depressed mental status and respiratory distress. Patient reportedly nodded yes to a fever and cough, but denied any chest pain. Patient was noted to be tachycardic and hypoxic. Patient was attempted on BiPAP therapy for approximately 10 minutes, but then was intubated. Given allergies, patient was placed on Levaquin and Azactam and transferred to the intensive care unit for further monitoring. Overnight in the intensive care unit, patient did have significant SVT reported as sinus tachycardia. Patient was placed on amiodarone therapy and heart rates have improved this morning. Patient did have an elevated troponin, but this also appears to be improving. Patient has not had any worsening in blood pressure, but propofol has not been used secondary to marginal baseline blood pressure. Patient is responding to fentanyl therapy alone. Multiple changes on the ventilator overnight secondary to respiratory acidosis. Patient reportedly was recently admitted at [facility] for the majority of last week. No family is at the bedside and patient is currently intubated, so the additional history was obtained from the medical record. Patient reportedly was symptomatic with fevers and chills prior to discharge. Laboratory workup showed SVT with heart rates into the 160s, elevated troponin, hypokalemia without leukocytosis or anemia. Patient does have a history of mitral valve prolapse. Patient reportedly has never had a history of [place] in the past or cardiac stent. Patient does see Dr. Quispe as an outpatient. Patient has had pulmonary function tests in 2013 showing a mild COPD. Repeat PFT, walking oximetry and PSG were ordered at the last office visit, but it does not appear that these have been completed. Unable to obtain review of systems secondary to intubated status and lack of family at the bedside. Past Medical History Past Medical History (Chronic Problems): Chronic Problems (Last Reviewed 12/13/17 @ 07:47 by Vanessa Zamora) Tobacco dependency (Chronic) Hypersomnia (Chronic) Urinary incontinence (Chronic) Back pain (Chronic) Neck pain (Chronic) GERD (gastroesophageal reflux disease) (Chronic) Temporomandibular joint (TMJ) pain (Chronic) COPD (chronic obstructive pulmonary disease) (Chronic) Mitral valve prolapse (Chronic) Bipolar disorder (Chronic) Hypokalemia (Chronic) Hypoglycemia (Chronic) Hypothyroidism (Chronic) History of diverticulitis (Chronic) Medical History: Medical History (Last Reviewed 12/13/17 @ 07:47 by Vanessa Zamora) Urinary incontinence (Chronic) R32 Back pain (Chronic) M54.9 Neck pain (Chronic) M54.2 GERD (gastroesophageal reflux disease) (Chronic) K21.9 Temporomandibular joint (TMJ) pain (Chronic) M26.629 COPD (chronic obstructive pulmonary disease) (Chronic) J44.9 Mitral valve prolapse (Chronic) I34.1 Bipolar disorder (Chronic) F31.9 Hypokalemia (Chronic) E87.6 Hypoglycemia (Chronic) E16.2 Hypothyroidism (Chronic) E03.9 History of diverticulitis (Acute) Z87.19 Allergies amoxicillin Allergy (Severe, Verified 10/26/17 07:16) Shortness of breath AND HIVES azithromycin Allergy (Severe, Verified 10/26/17 07:17) Shortness of breath AND HIVES clindamycin Allergy (Severe, Verified 10/26/17 07:20) Shortness of breath AND HIVES doxycycline Allergy (Severe, Verified 10/26/17 07:20) Shortness of breath AND HIVES erythromycin lactobionate [From Erythrocin] Allergy (Severe, Verified 10/26/17 07:20) Shortness of breath AND HIVES Penicillins Allergy (Severe, Verified 10/26/17 07:20) Shortness of breath AND HIVES Sulfa (Sulfonamide Antibiotics) Allergy (Severe, Verified 10/26/17 07:20) Shortness of breath AND HIVES sulfamethoxazole [From Bactrim] Allergy (Severe, Verified 10/26/17 07:20) Shortness of breath AND HIVES trimethoprim [From Bactrim] Allergy (Severe, Verified 10/26/17 07:20) Shortness of breath AND HIVES tramadol Allergy (Verified 10/23/17 16:51) Unknown codeine [From Tylenol-Codeine #3] Adverse Reaction (Verified 10/23/17 16:51) Nausea/Vom/Diarrhea terbutaline [From Brethine] Adverse Reaction (Verified 10/23/17 16:51) Other ANITHISTAMINES Allergy (Uncoded 10/23/17 16:51) Unknown Home Medications: Ambulatory Orders Medication Instructions Recorded Atenolol [Tenormin (beta Doretha)] 25 mg PO BID 06/23/14 Surgical History: Surgical History (Last Reviewed 12/13/17 @ 07:47 by Vanessa Zamora) History of cholecystectomy (Resolved) Z98.890, Z90.49 History of appendectomy (Resolved) Z98.890, Z90.49 History of dilatation and curettage (Resolved) Z98.890 History of left oophorectomy (Resolved) Z98.890, Z90.721 History of section (Resolved) Z98.891 Surgical History: - - Emergency 1993 Left ovary follapian tube and ovary removed 1998 Throat biopsy: benign 1999 Hydrothermal ablation and D AND C 2004 Emergency appendectomy 2008 Cholecystectomy lap 2002 Smoking Status: Former smoker Alcohol: None Drugs: None - *Family History Paternal Family History: Family History (Last Reviewed 12/13/17 @ 07:47 by Vanessa Zamora) Mother Hypertension Pulmonary embolism Psychiatric care Father Lung cancer Grandmother Breast cancer Sister Asthma Seizures Psychiatric care Depression Son Depression Psychiatric care ADHD Daughter Depression Psychiatric care Bipolar 1 disorder History Items: Hypertension Review of Systems Unable to obtain accurate/complete ROS d/t: Intubated and sedated Patient Problems: Active and Suspected Problems (Last Reviewed 12/13/17 @ 07:47 by Vanessa Zamora) Acute on chronic respiratory failure with hypoxia and hypercapnia (Acute) Multifocal possible HCAP (Acute) Elevated troponin (Acute) NSTEMI (non-ST elevated myocardial infarction) (Acute) SVT (supraventricular tachycardia) (Acute) Objective: All imaging was personally reviewed and chest x-ray shows infiltrates, left greater than right with appropriate position of supportive devices. - Physical Exam General: - - RASS -2. Good ventilator synchrony noted. Breathing with the ventilator. Appears older than stated age. HEENT: Atraumatic, PERRLA, EOMI, Normocephalic, - - No scleral icterus or injection noted. Oral: Moist Mucosa, No Gingival or Mucosal Lesions/ Ulcerations, - - Fair dentition Neck: Supple, No JVD, No Nodes, Trachea Midline Lungs: No rales, Diminished, Rhonchi - Left greater than right, Wheezes - Left greater than right, - - Symmetric expansion. Cardiovascular: Normal S1, Normal S2, No murmurs, No rub noted, No Gallop, Tachycardic Abdomen: Bowel Sounds Present, Soft, Non Tender, Non-Distended Skin: No rashes, No breakdown, - - Track ji noted on bilateral ankles Musculoskeletal: No Tenderness to Palpation of Joints or Extremities, No Muscle Wasting Lymphatic: No Cervical, Supraclavicular, or Inguinal Adenopathy Neurological: Cranial nerves II-XII grossly intact, Neuro grossly intact, Motor Exam 5/5 strength throughout Psych/Mental Status: Alert and oriented to time, place, person, mood and affect Vital Signs Temp Pulse Resp BP Pulse Ox 37.0 C 81 16 102/68 97 04/16/18 07:00 04/16/18 07:05 04/16/18 07:05 04/16/18 07:00 04/16/18 07:02 Oxygen Delivery Method Mechanical Ventilator Weight: 61.1 kg Body Mass Index (BMI) 23.3 Intake and Output for Last 24 Hours Intake Total 1573 / 1573 Output Total 355 / 355 Balance 1218 / 1218 Laboratory Tests Past 24 Hrs WBC 7.4 RBC 3.60 L WBC RBC Hgb Hct MCV MCH MCHC RDW POC Glucose POC Glucose 198 H 147 H Clinical Impression(s) from Imaging Studies Chest X-Ray 04/15/18 16:45 IMPRESSION: Airspace opacity in the lower lobes, left greater than right. This is likely infectious in etiology. Electronically Signed: Terrence Ion, at 17:47 EDT Tel , Service support , Chest X-Ray 04/15/18 18:10 IMPRESSION: Endotracheal tube and feeding tube placement. Bilateral infiltrates or edema. Electronically Signed: Elias Paulino MD at 19:29 EDT , Service support , Assessment/Plan Active and Suspected Problems (Last Reviewed 12/13/17 @ 07:47 by Vanessa Zamora) Acute on chronic respiratory failure with hypoxia and hypercapnia (Acute) Multifocal possible HCAP (Acute) Elevated troponin (Acute) NSTEMI (non-ST elevated myocardial infarction) (Acute) SVT (supraventricular tachycardia) (Acute) RECOMMENDATIONS: 1. Continue bronchodilators, steroids and antibiotics 2. Wean oxygen as tolerated. Spontaneous breathing and awakening trials per protocol 3. Okay to initiate tube feeds 4. Obtain tox screen 5. Amiodarone and cardiac investigation per cardiology 6. Okay to initiate full anticoagulation if requested by cardiology IMPRESSIONS: 1. Acute on chronic combined respiratory failure Exact etiology is unclear at this time. Patient did have SVT on presentation and may have an element of acute on chronic diastolic heart failure. Echocardiogram has been ordered. Patient did have an elevation in troponin. Likely okay to initiate heparin drip if requested by cardiology. Patient also has relatively mild COPD in 2013, but has been smoking ever since. Updated PFT has not been completed at this time. COPD exacerbation cannot be excluded. Patient has been initiated on bronchodilators and steroid therapy. Patient is on empiric antibiotics for 48 hours until cultures become complete. She does have track ji on her ankles, so it is unclear if illicit drug use could be complicating situation. Unfortunately, patient has been on fentanyl and no tox screen was obtained in the ER. Wean oxygen as tolerated. Spontaneous awakening and breathing trials per protocol. 2. Non-ST elevation [place]/SVT Unclear if this is secondary to hypoxemia versus a malignant rhythm with baseline coronary obstruction. Cardiology is currently following. Troponins appear to be improving. Patient is on aspirin, but Lovenox is only on DVT prophylaxis. Defer to cardiology on whether this needs to be increased to full anticoagulation. 3. Severe sepsis secondary to possible pneumonia Patient with reported fever, tachycardia and hypoxemia on presentation. Patient does have increased infiltrates noted on chest x-ray, but no leukocytosis is appreciated. Pneumonia workup is currently underway. If cultures negative at 48 hours, likely discontinue antibiotics. Elevated lactate may be secondary to global hypoxemia. 4. Metabolic encephalopathy She was significant CO2 retention on presentation. Patient is on supplemental oxygen at baseline. This appears to be improving. Patient is on fentanyl. Okay to use propofol if necessary. 5. Bipolar disorder/history of diverticulitis/mitral valve prolapse/chronic pain syndrome/GERD/hypothyroidism Complicates care, management, recovery and prognosis. Likely okay to continue with baseline medications. TIME: 37 minutes critical care time spent addressing patient's acute on chronic combined respiratory failure, non-ST elevation [place], severe sepsis, review of all data and collaboration with care team. (6 AM to 7:50 AM) 04/17/18 0842 <Electronically signed by Amadou Vann MD> Date Amadou Vann MD Cosigner Signature (if applicable): Date CC: Amadou Vann MD; Yamil Merino MD; Sofy Richter DO Signed BLOOD GASES BY [facility] Collected: 04/17/2018 Status: F Source: [place] 6:[address] [facility] REPOSITORY TYPE CODE TESTS RESULT OUT OF RANGE REFERENCE UNITS LAB L9000.9990 Normal BLD GAS TYPE ART LAB L9001.1000 Normal SITE L Radial LAB L9001.1010 Normal WEN TEST POS LAB L9001.1050 O2 Normal Delivery Dev Bi / C PAP LAB L9001.1074 Normal FI02 40 LAB L9001.1088 Normal IPAP 5 LAB L9001.1104 Normal Results To ICU LAB L9001.1110 7.35-7.45 pH Normal - I-STAT 7.37 LAB L9001.1210 35-45 mmHg High pCO2 - ISTAT 52.8 LAB L9001.1310 75-100 mmHG Normal PO2 I-STAT 86 LAB L9001.2300 22-26 mmol/L High HCO3 ISTAT 30.8 LAB L9001.2400 -2 to +2 mmol/L High BE ISTAT 6 LAB L9001.2415 mmol/L Normal TOTAL CO2 32 ISTAT LAB L9001.2425 95-99 % Normal SO2 ISTAT 96 Performed By: #### L9000.0800 #### [facility] Point of Care [address] [place] [address] BEDSIDE GLUCOSE Collected: 04/17/2018 Status: F Source: [place] 5:[address] [facility] REPOSITORY TYPE CODE TESTS RESULT OUT OF REFERENCE UNITS RANGE LAB L501.080 70-110 mg/dL High BEDSIDE GLU 157 Result Comment: Dr Clemente Followed Insulin Given MANAGEMENT OF PATIENT CARE PER NURSING PROTOCOL Performed By: #### L501.080 #### [facility] Point of Care [address] [place] [address] BASIC METABOLIC Collected: 04/17/2018 Status: F Source: [place] PROFILE (BMP) 3:[address] [facility] REPOSITORY TYPE CODE TESTS RESULT OUT OF RANGE REFERENCE UNITS LAB L501.0100 74-106 mg/dL High GLU 167 Result Comment: Fasting Glucose result greater than or equal to 126 mg/dL suggests DIABETES MELLITUS per A.D.A. criteria. Please note revised GLUCOSE reference range effective 2017. LAB L501.1000 7-18 mg/dL High BUN 23 LAB L501.1100 0.55-1.02 mg/dL Low CREAT,SERUM 0.50 Result Comment: The validity of the calculated GFR AND GFRAA in patients over 70 years has not been determined. Clinical correlation is essential. LAB L501.1110 >60 mL/min Normal EST GFR 139 Result Comment: Non- GFR Calc LAB L501.1115 >60 mL/min Normal EST GFR - AA 168 Result Comment: GFR Calc LAB L501.1255 ml/min Normal Estimated CRCL 108.88 LAB L501.1300 10-20 RATIO High BUN/CRE 46.3 LAB L501.2200 8.5-10 mg/dL Low .1 CA 8.2 LAB L501.5300 136-14 mmol/L 5 NA Normal 141 LAB L501.5600 3.5-5. mmol/L Low 1 K 3.3 LAB L501.5900 98-107 mmol/L CL Normal 101 LAB L501.6100 21.0-3 mmol/L 2.0 CO2 Normal 31.0 LAB L501.6200 5-15 GAP Normal 9 Performed By: #### L500.2500 #### [facility] [address] [place], [place], [id number] CBC W/DIFF, AUTOMATED Collected: 04/17/2018 Status: F Source: [place] 3:[address] [facility] REPOSITORY TYPE CODE TESTS RESULT OUT OF RANGE REFERENCE UNITS LAB L100.1000 4.4-11.0 K/mm3 Normal WBC 8.1 LAB L100.1200 4.2-5.4 M/mm3 Low RBC 3.25 LAB L100.1300 12.0-15.0 g/dl Low HGB 10.1 LAB L100.1400 37-47 % Low HCT 30.7 LAB L100.1500 81-99 fL Normal MCV 94.5 LAB L100.1600 27.0-32.0 pg Normal MCH 31.1 LAB L100.1700 32-36 g/gl Normal MCHC 32.9 LAB L100.1810 11.6-14.6 % Normal RDW CV 13.1 LAB L100.1820 35.1-43.9 fl High RDW SD 45.7 LAB L100.1900 150-450 K/mm3 Normal PLT 192 LAB L100.2000 6.2-12.0 fl Normal MPV 11.0 LAB L100.2100 47-70 % High NEUT% 78.1 LAB L100.2200 19-41 % Low LY% 9.6 LAB L100.2300 0-10 % High MONO% 10.6 LAB L100.2400 0-5 % Normal EO% 0.0 LAB L100.2500 0-1 % Normal BASO% 0.5 LAB L100.2550 0.0-0.9 % High IM GRAN % 1.200 Result Comment: IG% - Immature Granulocytes (promyelocytes, myelocytes and metamyelocytes) > 1% indicates that a LEFT SHIFT is Present. LAB L100.2620 2.0-7.7 X10 3/uL Normal Absolute Neut 6.3 LAB L100.2720 0.83-4.51 X10 3/ul Low Absolute Lymph 0.78 Performed By: #### L100.0100, L100.4425 #### [facility] [address] [facility] [place], [address] NRBC PANEL Collected: 04/17/2018 Status: F Source: [place] 3:[address] [facility] REPOSITORY TYPE CODE TESTS RESULT OUT OF RANGE REFERENCE UNITS LAB L100.4450 0-5 % Normal NRBC, FLAGGED 0.9 LAB L100.4455 0-5 10 3/uL Normal NRBC # 0.07 Performed By: #### L100.0100, L100.4425 #### [facility] [address] [facility] [place], [address] MAGNESIUM Collected: 04/17/2018 Status: F Source: [place] 3:[address] [facility] REPOSITORY TYPE CODE TESTS RESULT OUT OF RANGE REFERENCE UNITS LAB L501.5200 1.6-2.6 mg/dL Normal MG 2.5 Performed By: #### L501.5200 #### [facility] [address] [facility] [place], [address] BEDSIDE GLUCOSE Collected: 04/16/2018 Status: F Source: [place] 11:[address] [facility] REPOSITORY TYPE CODE TESTS RESULT OUT OF REFERENCE UNITS RANGE LAB L501.080 70-110 mg/dL High BEDSIDE GLU 163 Result Comment: Dr Orders Followed Insulin Given MANAGEMENT OF PATIENT CARE PER NURSING PROTOCOL Performed By: #### L501.080 #### [facility] Point of Care [address] [facility] [place] [address] BEDSIDE GLUCOSE Collected: 04/16/2018 Status: F Source: [place] 6:[address] [facility] REPOSITORY TYPE CODE TESTS RESULT OUT OF REFERENCE UNITS RANGE LAB L501.080 70-110 mg/dL High BEDSIDE GLU 157 Result Comment: MANAGEMENT OF PATIENT CARE PER NURSING PROTOCOL Performed By: #### L501.080 #### [facility] Point of Care [address] [place] [address] Observed: 04/16/2018 Status: F Source: [place] RESPIRATORY PANEL 4:[address] [facility] MOLECULAR REPOSITORY RP PANEL Normal Reference Range = Not Detected RESULTS CALLED TO KEM/ICU 04/17/18 0948 Evi Diaz. Copy of report sent to Infection Control Printer [id number] 04/17/18 0931 MOLLY. ADENOVIRUS Not Detected HUMAN METAPHNEUMO Not Detected INFLUENZA A Not Detected INFLUENZA A (SUBTYPE H1) Not Detected INFLUENZA A (SUBTYPE H3) Not Detected INFLUENZA B Not Detected PARAINFLUENZA 1 Not Detected PARAINFLUENZA 2 Not Detected PARAINFLUENZA 3 Not Detected PARAINFLUENZA 4 Not Detected RHINOVIRUS Positive for RHINOVIRUS by NAAT technology RSV A Not Detected RSV B Not Detected NAAT METHOD Testing was performed using nucleic acid amplification ORGANISM 1: RHINOVIRUS Performed By: #### M100.638 #### [facility] [address] [place], [address] ECHOCARDIOGRAM COMPLETE Observed: 04/16/2018 Status: F Source: [place] 12:[address] [facility] REPOSITORY [facility] Cardiovascular Services [address] [place] [id number] Echo Complete 04/16/18 0815 MR#: [id number] Acct: [id number] Name: ALEXEI FOWLER Rep #: [id number] : 1965 53 From: Yamil Merino MD Attending Dr: Nicki Chua MD Status: ADM IN Ordering Dr: Yamil Merino MD Date: 04/15/18 Location: ICU Sex: F C Admitted: 04/15/18 Reason For Study: DYSPNEA/SOB Procedure This was a 2D Doppler, Color Flow transthoracic echocardiogram. Technically difficult study due to pt being in supine position on ventilator. Exam performed portable in ICU/CCU. Left Ventricle Normal LV size. No evidence for diastolic dysfunction. The estimated ejection fraction is 50 %. No regional wall motion abnormalities noted. Right Ventricle Normal RV size. Abnormal right ventricular diastolic function. There are regional wall motion abnormalities. Atria Normal left atrium. Normal right atrium. Mitral Valve Normal mitral valve. Tricuspid Valve Normal tricuspid valve. Mild tricuspid valve insufficiency. Pulmonary artery systolic pressure is 28 mmHg. Aortic Valve Normal aortic valve. Pulmonic Valve The pulmonic valve is not well visualized. Great Vessels Normal aortic root. The pulmonary artery is normal size. Normal inferior vena cava. Pericardium/Pleural No pericardial effusion. MMode/2D Measurements AND Calculations LVIDd: 4.0 cm IVSd: 0.66 cm Ao root diam: 2.6 cm LVIDs: 2.8 cm LVPWd: 0.86 cm LA dimension: 2.5 cm RVDd: 3.7 cm FS: 28.9 % LAV(MOD-bp): 20.7 ml LA A4 area: 9.9 cm2 RA A4 area: 8.1 cm2 LAV(MOD-bp) Indexed: 12.5 ml/m2 LAV(MOD-sp2): 16.7 ml LAV(MOD-sp4): 22.3 ml Time Measurements MV dec time: 0.28 sec Doppler Measurements AND Calculations MV E max shantelle: 64.6 cm/sec Lat Peak E' Shantelle: 11.7 cm/sec Med Peak E' Shantelle: 6.8 cm/sec MV A max shantelle: 45.4 cm/sec E/E' lat: 5.5 E/E' med: 9.5 MV E/A: 1.4 Ao V2 max: 123.5 cm/sec LV V1 max: 86.4 cm/sec PA V2 max: 107.7 cm/sec Ao max P.1 mmHg LV V1 max P.0 mmHg TR max shantelle: 243.5 cm/sec TR max P.7 mmHg Interpretation Summary No evidence for diastolic dysfunction. Normal LV size. The estimated ejection fraction is 50 %. Abnormal right ventricular diastolic function There are regional wall motion abnormalities. Mild tricuspid valve insufficiency. Ordering Physician: Yamil Merino Referring Physician: SOFY RICHTER Performed By: Denisse Shah, TIA, RVT 04/16/18 1256 Date Yamil Merino MD CC: Yamil Merino MD; Sofy Richter DO; Nicki Chua MD Date Dictated: 04/16/18 0815 Date Transcribed: 04/16/18 125 Lieutenant Colonel: Signed BEDSIDE GLUCOSE Collected: 04/16/2018 Status: F Source: [place] 12:[address] [facility] REPOSITORY TYPE CODE TESTS RESULT OUT OF REFERENCE UNITS RANGE LAB L501.080 70-110 mg/dL High BEDSIDE GLU 155 Result Comment: MANAGEMENT OF PATIENT CARE PER NURSING PROTOCOL Performed By: #### L501.080 #### [facility] Point of Care [address] [place], [place] [address] [place] [address] CONSULTATION Observed: 04/16/2018 Status: F Source: [place] 9:[address] [facility] REPOSITORY [facility] Medical Records Department [address] [place] [address] Consultation 04/15/18 1903 MR#: [id number] Acct: [id number] Name: ALEXEI FOWLER Rep #: [id number] : 1965 53 From: Yamil Merino MD PCP: Sofy Richter DO Status: ADM IN Y Location: ICU ICU-1 Reason for Consult Date of Consultation: 04/15/18 Reason for Consultation: Shortness of breath and EKG changes History of Present Illness: The patient is a 53 year old F with multiple comorbidities, predominantly COPD on 4 L of home oxygen, recently was admitted in [facility] from last week, to Sunday was brought in to ER by ambulance for shortness of breath, cough and decreased level of consciousness. Before I saw the patient, patient was intubated for respiratory failure and decreased level of consciousness. She apparently had been having some fever and chills and was short of breath even when she was discharged yesterday. In the emergency room she was noted to be tachycardic with a high respiratory rate and was put on BiPAP and was subsequently intubated because of impending respiratory failure. EKG demonstrated lateral ST changes and cardiology was informed to see her. While in the emergency room she was noted to be having runs of supraventricular tachycardia with a rate of approximately 210 bpm spontaneously converting. She was given 5 mg of intravenous beta-doretha and arrangements were made to transfer her to the intensive care unit. Past Medical History Allergies/Adverse Reactions: Allergies amoxicillin Allergy (Severe, Verified 10/26/17 07:16) Shortness of breath AND HIVES azithromycin Allergy (Severe, Verified 10/26/17 07:17) Shortness of breath AND HIVES clindamycin Allergy (Severe, Verified 10/26/17 07:20) Shortness of breath AND HIVES doxycycline Allergy (Severe, Verified 10/26/17 07:20) Shortness of breath AND HIVES erythromycin lactobionate [From Erythrocin] Allergy (Severe, Verified 10/26/17 07:20) Shortness of breath AND HIVES Penicillins Allergy (Severe, Verified 10/26/17 07:20) Shortness of breath AND HIVES Sulfa (Sulfonamide Antibiotics) Allergy (Severe, Verified 10/26/17 07:20) Shortness of breath AND HIVES sulfamethoxazole [From Bactrim] Allergy (Severe, Verified 10/26/17 07:20) Shortness of breath AND HIVES trimethoprim [From Bactrim] Allergy (Severe, Verified 10/26/17 07:20) Shortness of breath AND HIVES tramadol Allergy (Verified 10/23/17 16:51) Unknown codeine [From Tylenol-Codeine #3] Adverse Reaction (Verified 10/23/17 16:51) Nausea/Vom/Diarrhea terbutaline [From Brethine] Adverse Reaction (Verified 10/23/17 16:51) Other ANITHISTAMINES Allergy (Uncoded 10/23/17 16:51) Unknown Home Medications: Ambulatory Orders Medication Instructions Recorded Past Medical History (Chronic Problems): Chronic Problems (Last Reviewed 12/13/17 @ 07:47 by Vanessa Zamora) Tobacco dependency (Chronic) Hypersomnia (Chronic) Urinary incontinence (Chronic) Back pain (Chronic) Neck pain (Chronic) GERD (gastroesophageal reflux disease) (Chronic) Temporomandibular joint (TMJ) pain (Chronic) COPD (chronic obstructive pulmonary disease) (Chronic) Mitral valve prolapse (Chronic) Bipolar disorder (Chronic) Hypokalemia (Chronic) Hypoglycemia (Chronic) Hypothyroidism (Chronic) Surgical History: - - Emergency 1993 Left ovary follapian tube and ovary removed 1998 Throat biopsy: benign 1999 Hydrothermal ablation and D AND C 2004 Emergency appendectomy 2009 Cholecystectomy lap 2002 - *Family History Paternal Family History: Family History (Last Reviewed 12/13/17 @ 07:47 by Vanessa Zamora) Mother Hypertension Pulmonary embolism Psychiatric care Father Lung cancer Grandmother Breast cancer Sister Asthma Seizures Psychiatric care Depression Son Depression Psychiatric care ADHD Daughter Depression Psychiatric care Bipolar 1 disorder History Items: Hypertension Smoking Status: Former smoker Alcohol: None Drugs: None Review of Systems - Review of Systems General: Reports: Fever, Fatigue, Malaise, Chills. Denies: Night Sweats Cardiovascular: Denies: Chest Discomfort, Shortness of Breath, Orthopnea, PND, Peripheral Edema, Palpitations, Lightheadedness, Dizziness, Near Syncope, Syncope Respiratory: Reports: Cough, Shortness of Breath, Wheezing. Denies: Sputum Production, Hemoptysis Gastrointestinal: Denies: Hematemesis, Hematochezia, Melena Genitourinary: Denies: Dysuria, Hematuria Skin: Denies: Rash Subjectve: Intubated lady in mild distress on intravenous propofol Objective: Vital Signs Temp Pulse Resp BP Pulse Ox 99.3 F H 149 H 15 135/117 H 100 04/15/18 16:42 04/15/18 18:10 04/15/18 18:10 04/15/18 18:00 04/15/18 18:10 General: Ill Appearing HEENT: PERRL, EOMI, Sclera Non Icteric Neck: Supple, Good ROM, No Lymph Node Enlargement Lungs: Diminished Mika Bases Cardiovascular: Regular Rhythm, Normal S1, Normal S2, No Murmurs, No Rubs, No Gallops Vascular: No Carotid Bruits, Normal Femoral Pulses, Normal Radial Pulses, Normal Dorsalis Pedal Pulse, Normal Posterior Tibial Pulses Abdomen: Bowel Sounds Present, Soft, Non Tender, No HSM, No Organomegaly Extremities: No Cyanosis, No Clubbing, No edema Neurological: No Focal Motor or Sensory Deficit Rhythm: EKG: Sinus tachycardia with a rate of [address] depression ECHO: Stress Test: Cardiac Cath: PCI: CT Surgery: Holter monitor: EPS: PPM: CXR: Chest CT Scan: Assessment/Plan 1. Non-ST elevation myocardial infarction The patient presents with respiratory distress and is noted to have EKG changes and a non-ST elevation myocardial infarction. No history is available at this particular time but she does appear to have chest x-ray findings with left sided infiltrate suggesting that sepsis could be potentiating culprits. * Recommendation at this time will be to treat the underlying sepsis. * There is a suggestion that she may have had mitral valve prolapse and I recommend an echocardiogram to assess her ventricular function as well as her mitral valve to exclude chordal rupture * Aspirin * Will hold off on anticoagulation at this time in the face of the sepsis * She will eventually need an evaluation of her coronary anatomy. I did discuss this with the patient's son, and he is in agreement. * High intensity statin 2. Supraventricular tachycardia * Patient is having runs of supraventricular tachycardia * Will continue to administer aliquots of beta-doretha as blood pressure tolerates * * Thank you for allowing me to participate in the care of your patient. Please don't hesitate to call if any issues arise 04/16/18 0924 <Electronically signed by Yamil Merino MD> Date Yamil Merino MD Cosigner Signature (if applicable): Date CC: Amadou Vann MD; Yamil Merino MD; Sofy Richter DO Signed BEDSIDE GLUCOSE Collected: 04/16/2018 Status: F Source: [place] 6:[address] [facility] REPOSITORY TYPE CODE TESTS RESULT OUT OF REFERENCE UNITS RANGE LAB L501.080 70-110 mg/dL High BEDSIDE GLU 198 Result Comment: MANAGEMENT OF PATIENT CARE PER NURSING PROTOCOL Performed By: #### L501.080 #### [facility] Point of Care [address] [place], [place] [address] [address] BLOOD GASES BY CPS Collected: 04/16/2018 Status: F Source: [place] 5:[address] [facility] REPOSITORY TYPE CODE TESTS RESULT OUT OF RANGE REFERENCE UNITS LAB L9000.9990 Normal BLD GAS TYPE ART LAB L9001.1000 Normal SITE L Radial LAB L9001.1010 Normal WEN TEST POS LAB L9001.1048 Normal Mode A-C LAB L9001.1050 O2 Normal Delivery Dev Vent LAB L9001.1060 MV Normal 8.00 LAB L9001.1065 Vt Normal 500 LAB L9001.1070 RR Normal 16 LAB L9001.1074 Normal FI02 40 LAB L9001.1076 Normal PEEP 5 LAB L9001.1104 Normal Results To ICU LAB L9001.1105 Normal Time Given 530 LAB L9001.1110 7.35-7.45 Low pH - I-STAT 7.31 LAB L9001.1210 35-45 mmHg High pCO2 - ISTAT 53.6 LAB L9001.1310 75-100 mmHG Low PO2 I-STAT 73 LAB L9001.2300 22-26 mmol/L High HCO3 ISTAT 26.7 LAB L9001.2400 -2 to +2 mmol/L BE Normal ISTAT 0 LAB L9001.2415 mmol/L Normal TOTAL CO2 28 ISTAT LAB L9001.2425 95-99 % Low SO2 ISTAT 93 Performed By: #### L9000.0800 #### [facility] Point of Care [address] [place], [place] [address] BASIC METABOLIC Collected: 04/16/2018 Status: F Source: [place] PROFILE ([facility]) 5:[address] [facility] REPOSITORY TYPE CODE TESTS RESULT OUT OF RANGE REFERENCE UNITS LAB L501.0100 74-106 mg/dL High GLU 177 Result Comment: Fasting Glucose result greater than or equal to 126 mg/dL suggests DIABETES MELLITUS per A.D.A. criteria. Please note revised GLUCOSE reference range effective 2017. LAB L501.1000 7-18 mg/dL High BUN 20 LAB L501.1100 0.55-1.02 mg/dL Normal CREAT,SERUM 0.66 Result Comment: The validity of the calculated GFR AND GFRAA in patients over 70 years has not been determined. Clinical correlation is essential. LAB L501.1110 >60 mL/min Normal EST GFR 100 Result Comment: Non- GFR Calc LAB L501.1115 >60 mL/min Normal EST GFR - AA 121 Result Comment: GFR Calc LAB L501.1255 ml/min Normal Estimated CRCL 82.48 LAB L501.1300 10-20 RATIO High BUN/CRE 30.3 LAB L501.2200 8.5-10 mg/dL Low .1 CA 7.8 LAB L501.5300 136-14 mmol/L Normal 5 NA 140 LAB L501.5600 3.5-5. mmol/L Normal 1 K 3.8 LAB L501.5900 98-107 mmol/L Normal CL 103 LAB L501.6100 21.0-3 mmol/L Normal 2.0 CO2 29.0 LAB L501.6200 5-15 Normal GAP 8 Performed By: #### L500.2500, L500.4100 #### [facility] [address] [place], [place], [address] LIPID PROFILE Collected: 04/16/2018 Status: F Source: [place] 5:[address] [facility] REPOSITORY TYPE CODE TESTS RESULT OUT OF RANGE REFERENCE UNITS LAB L501.4900 200 mg/dL Normal CHOL 64 Result Comment: <200 mg/dL Desirable 200-240 mg/dL Borderline >240 mg/dL High Risk LAB L501.5000 mg/dL Normal TRIG 58 Result Comment: The drugs N-Acetylcysteine and Metamizole may falsely depress this assay. Serum Triglycerides Reference Interval Normal <150 mg/dL Borderline high 150 - 199 mg/dL High 200 - 499 mg/dL Very High > or = 500 mg/dL LAB L501.6400 mg/dL Low HDL 34 Result Comment: The drugs N-Acetylcysteine and Metamizole may falsely depress this assay. Reference Range HDL <40 mg/dL Low HDL Cholesterol HDL >or= 60 mg/dL High HDL Cholesterol LAB L501.6500 0-130 mg/dL Normal LDL 18 LAB L501.6600 5-40 mg/dL Normal VLDL 12 Performed By: #### L500.2500, L500.4100 #### [facility] [address] [place], [address] CBC-COMPLETE BLOOD CNT Collected: 04/16/2018 Status: F Source: [place] NO DIFF 5:[address] [facility] REPOSITORY TYPE CODE TESTS RESULT OUT OF RANGE REFERENCE UNITS LAB L100.1000 4.4-11.0 K/mm3 Normal WBC 7.4 LAB L100.1200 4.2-5.4 M/mm3 Low RBC 3.60 LAB L100.1300 12.0-15.0 g/dl Low HGB 11.0 LAB L100.1400 37-47 % Low HCT 34.5 LAB L100.1500 81-99 fL Normal MCV 95.8 LAB L100.1600 27.0-32.0 pg Normal MCH 30.6 LAB L100.1700 32-36 g/gl Low MCHC 31.9 LAB L100.1810 11.6-14.6 % Normal RDW CV 13.0 LAB L100.1820 35.1-43.9 fl High RDW SD 45.6 LAB L100.1900 150-450 K/mm3 Normal PLT 195 LAB L100.2000 6.2-12.0 fl Normal MPV 11.3 Performed By: #### L100.0500 #### [facility] [address] [place], [address] TROPONIN-I Collected: 04/16/2018 Status: C Source: [place] 2:[address] [facility] REPOSITORY Order Comment: 'TROP' Serial specimen #1, #2 or #3: 3 'TROP' Serial specimen #1, #2, #3, or #4: 3 TYPE CODE TESTS RESULT OUT OF RANGE REFERENCE UNITS LAB L501.4010 <0.045 ng/mL High alert 0.802 TROPONIN-I Result Comment: Critical Result(s) Called at: 02:48:14 04/16/2018 by: PURVI MCKEON RN ICU TROPONIN-I EXPECTED VALUES <0.045 Negative 0.045 - 0.590 Consistent with Cardiac Damage > OR = 0.600 Critical Value Not every elevated troponin is indicative of [place]. These values should be used with clinical judgement in examining the patient's clinical picture for diagnosis. To establish a diagnosis of [place] versus myocardial injury, there must be a demonstrated rise and/or fall in the troponin values, in addition to ischemic symptoms, EKG changes, new regional wall motion abnormality, and/or angiographical evidence. PLEASE NOTE: REFERENCE RANGES EDITED 18 AMENDED REPORT 04/16/18 0436 TROPONIN-I previously reported as: 0.802 *H ng/mL Critical Result(s) Called at: 02:48:14 04/16/2018 by: PURVI ALANIS RN ICU TROPONIN-I EXPECTED VALUES <0.045 Negative 0.045 - 0.590 Consistent with Cardiac Damage > OR = 0.600 Critical Value Not every elevated troponin is indicative of [place]. These values should be used with clinical judgement in examining the patient's clinical picture for diagnosis. To establish a diagnosis of [place] versus myocardial injury, there must be a demonstrated rise and/or fall in the troponin values, in addition to ischemic symptoms, EKG changes, new regional wall motion abnormality, and/or angiographical evidence. PLEASE NOTE: REFERENCE RANGES EDITED 18 Performed By: #### L501.4010 #### [facility] [address] [place], [address] CHEST 1 VIEW Observed: 04/16/2018 Status: F Source: [place] ([place]) 12:[address] [facility] REPOSITORY [facility] Imaging [place] [address] Chest 1 View (Portable) MR#: [id number] Acct: [id number] Name: ALEXEI FOWLER Rep #: [id number] : 1965 F 53 From: Crow Gibson MD PCP: Sofy Richter DO Status: ADM IN Study: Chest 1 View (Portable) Date of Exam: 04/16/18 Exam# [id number] Ordering Dr: Issac Rubio MD STUDY: X-RAY CHEST REASON FOR EXAM: Female, 53 years old. Respiratory failure. TECHNIQUE: Single AP portable view of the chest. COMPARISON: Comparison is made with prior examination dated April 15, 2018. FINDINGS: An endotracheal tube is in situ. The tip is at 3.6 times approximately milka. Nasogastric tube is seen with the tip in the body of the stomach. EKG electrodes are seen. Since prior study, there has been improved aeration of both lungs although residual reticular nodule infiltrates persist worse in the left lung base. Further follow-up is recommended. Hyperinflation. There is no demonstrated pleural abnormality. Normal size heart. Normal mediastinum and ashli. Normal visualized pulmonary arteries. Normal visualized aortic arch and descending thoracic aorta. Normal visualized thoracic spine. Normal visualized ribs, clavicles, and shoulders. There is no demonstrated abnormality of the visualized soft tissue structures of the upper abdomen. RAD/Chest 1 View (Portable) IMPRESSION: The support tubes are in good position. Since prior study, there has been improved aeration of both lungs with residual reticular nodular infiltrates worse on the left side. Electronically Signed: Crow Gibson MD at 8:44 EDT Tel [phone], Service support , CC: Sofy Richter DO; Issac Rubio MD Lieutenant Colonel: Signed BLOOD GASES BY CPS Collected: 04/15/2018 Status: F Source: [place] 11:[address] [facility] REPOSITORY TYPE CODE TESTS RESULT OUT OF RANGE REFERENCE UNITS LAB L9000.9990 Normal BLD GAS TYPE ART LAB L9001.1000 Normal SITE R Radial LAB L9001.1010 Normal WEN TEST POS LAB L9001.1048 Normal Mode A-C LAB L9001.1050 O2 Normal Delivery Dev Vent LAB L9001.1060 MV Normal 7.00 LAB L9001.1065 Vt Normal 500 LAB L9001.1070 RR Normal 14 LAB L9001.1074 Normal FI02 40 LAB L9001.1076 Normal PEEP 5 LAB L9001.1104 Normal Results To HOSP LAB L9001.1105 Normal Time Given 2255 LAB L9001.1110 7.35-7.45 Low pH - I-STAT 7.26 LAB L9001.1210 35-45 mmHg High pCO2 - ISTAT 56.8 LAB L9001.1310 75-100 mmHG Low PO2 I-STAT 73 LAB L9001.2300 22-26 mmol/L Normal HCO3 ISTAT 25.6 LAB L9001.2400 -2 to +2 mmol/L BE Normal ISTAT -1 LAB L9001.2415 mmol/L Normal TOTAL CO2 27 ISTAT LAB L9001.2425 95-99 % Low SO2 ISTAT 92 Performed By: #### L9000.0800 #### [facility] Point of Care [address] [facility] [place] [address] LACTIC ACID Collected: 04/15/2018 Status: F Source: [place] 11:[address] [facility] REPOSITORY TYPE CODE TESTS RESULT OUT OF RANGE REFERENCE UNITS LAB L503.6005 0.4-2.0 mmol/L Normal LACTIC ACID 1.6 Performed By: #### L503.6005 #### [facility] [address] [place], [address] Observed: 04/15/2018 Status: F Source: [place] CULTURE, [place] 9:[address] [facility] REPOSITORY Order Date: 04/15/18 Has pt arrived? Y Gram Stain Acceptable Specimen? Yes (<25 Epithelial cells per/lpf) Gram Stain 4+ White Blood Cells 1+ Epithelial cells No organisms seen Resp. Culture Ampicillin can be used for Beta-Lactamase negative isolates. Trimeth/Sulfa, Chloramphenicol, Cefotaxime, Ciprofloxacin, Amoxicillin/Clavulanic Acid,and Oral 2nd/3rd Generation Cephlosporins are effective against both Beta-Lactamase positive and Beta-Lactamase negative isolates. NO normal respiratory maria l isolated. ORGANISM 1: Haemophilus influenzae Amount Growth 1+ Beta Lactamase Positive Performed By: #### M100.0800 #### [facility] [address] [place], [place], [address] BEDSIDE GLUCOSE Collected: 04/15/2018 Status: F Source: [place] 9:[address] [facility] REPOSITORY TYPE CODE TESTS RESULT OUT OF REFERENCE UNITS RANGE LAB L501.080 70-110 mg/dL High BEDSIDE GLU 147 Result Comment: MANAGEMENT OF PATIENT CARE PER NURSING PROTOCOL Performed By: #### L501.080 #### [facility] Point of Care [address] [facility] [place] [address] TROPONIN-I Collected: 04/15/2018 Status: F Source: [place] 9:[address] [facility] REPOSITORY Order Comment: 'TROP' Serial specimen #1, #2 or #3: 1 TYPE CODE TESTS RESULT OUT OF RANGE REFERENCE UNITS LAB L501.4010 <0.045 ng/mL High alert 1.450 TROPONIN-I Result Comment: Critical Result(s) Called at: 21:42:00 04/15/2018 by: LISSETTE SANCHEZ IN ICU TROPONIN-I EXPECTED VALUES <0.045 Negative 0.045 - 0.590 Consistent with Cardiac Damage > OR = 0.600 Critical Value Not every elevated troponin is indicative of [place]. These values should be used with clinical judgement in examining the patient's clinical picture for diagnosis. To establish a diagnosis of [place] versus myocardial injury, there must be a demonstrated rise and/or fall in the troponin values, in addition to ischemic symptoms, EKG changes, new regional wall motion abnormality, and/or angiographical evidence. PLEASE NOTE: REFERENCE RANGES EDITED 18 Performed By: #### L501.4010, L501.5200 #### [facility] [address] [place], [address] MAGNESIUM Collected: 04/15/2018 Status: F Source: [place] 9:[address] [facility] REPOSITORY Order Comment: 'TROP' Serial specimen #1, #2 or #3: 1 TYPE CODE TESTS RESULT OUT OF RANGE REFERENCE UNITS LAB L501.5200 1.6-2.6 mg/dL Normal MG 2.2 Result Comment: Slight Hemolysis, Result may be falsely increased. Performed By: #### L501.4010, L501.5200 #### [facility] [address] [facility] [place], [address] BLOOD GASES BY CPS Collected: 04/15/2018 Status: F Source: [place] 8:[address] [facility] REPOSITORY TYPE CODE TESTS RESULT OUT OF RANGE REFERENCE UNITS LAB L9000.9990 Normal BLD GAS TYPE ART LAB L9001.1000 Normal SITE R Radial LAB L9001.1010 Normal WEN TEST POS LAB L9001.1048 Normal Mode A-C LAB L9001.1050 O2 Normal Delivery Dev Vent LAB L9001.1060 MV Normal 7.00 LAB L9001.1065 Vt Normal 450 LAB L9001.1070 RR Normal 14 LAB L9001.1074 Normal FI02 45 LAB L9001.1076 Normal PEEP 5 LAB L9001.1104 Normal Results To HOSP MD LAB L9001.1105 Normal Time Given 0 LAB L9001.1110 7.35-7.45 Low pH - I-STAT 7.22 LAB L9001.1210 35-45 mmHg High pCO2 - ISTAT 59.5 LAB L9001.1310 75-100 mmHG Normal PO2 I-STAT 82 LAB L9001.2300 22-26 mmol/L Normal HCO3 ISTAT 24.5 LAB L9001.2400 -2 to +2 mmol/L Low BE ISTAT -3 LAB L9001.2415 mmol/L Normal TOTAL CO2 26 ISTAT LAB L9001.2425 95-99 % Low SO2 ISTAT 93 Performed By: #### L9000.0800 #### [facility] Point of Care [address] [facility] [place], [place] [address] M R STAPH AUREUS Collected: 04/15/2018 Status: F Source: [place] DNA BY PCR 7:[address] [facility] REPOSITORY TYPE CODE TESTS RESULT OUT OF RANGE REFERENCE UNITS LAB L8200.1100 Negative Normal MRSA Negative RESULT Performed By: #### L8200.1000 #### [facility] [address] [place], [address] HISTORY AND PHYSICAL Observed: 04/15/2018 Status: F Source: [place] EXAM 7:[address] [facility] REPOSITORY [facility] Medical Records Department [address] [place] [address] History and Physical 04/15/18 1844 MR#: [id number] Acct: [id number] Name: ALEXEI FOWLER Rep #: [id number] : 1965 53 From: Issac Rubio MD PCP: Sofy Richter DO Status: ADM IN Y Location: ICU ICU-1 ADDENDUM by Issac Rubio MD on 04/15/18 at 1948 Code Visit Twelve-lead EKG shows sinus tachycardia at [address] depression in lateral and possible inferior leads. 2D echo is ordered. Academic Adviser on board. 04/15/181947 <Electronically signed by Issac Rubio MD> Date Issac Rubio MD cc: Sofy Richter DO; Issac Rubio MD * Signed Problem List (1) Acute on chronic respiratory failure with hypoxia and hypercapnia Status: Acute (2) Multifocal possible HCAP Status: Acute (3) Elevated troponin Status: Acute (4) Tobacco dependency Status: Chronic (5) Hypersomnia Status: Chronic (6) History of cholecystectomy Status: Resolved (7) History of appendectomy Status: Resolved (8) History of dilatation and curettage Status: Resolved (9) History of left oophorectomy Status: Resolved (10) History of section Status: Resolved (11) Urinary incontinence Status: Chronic (12) Back pain Status: Chronic (13) Neck pain Status: Chronic (14) GERD (gastroesophageal reflux disease) Status: Chronic (15) Temporomandibular joint (TMJ) pain Status: Chronic (16) COPD (chronic obstructive pulmonary disease) Status: Chronic (17) Mitral valve prolapse Status: Chronic (18) Bipolar disorder Status: Chronic (19) Hypokalemia Status: Chronic (20) Hypoglycemia Status: Chronic (21) Hypothyroidism Status: Chronic (22) History of diverticulitis Status: Acute History of Present Illness Date of Admission: 04/15/18 Chief Complaint: Short of breath, confusion and decreased level of consciousness The patient is a 53 year old F with multiple comorbidities, predominantly COPD on 4 L of home oxygen, recently was admitted in [facility] from last week, to Sunday was brought in to ER by ambulance for shortness of breath, cough and decreased level of consciousness. Before I saw the patient, patient was intubated for respiratory failure and decreased level of consciousness. As per ER physician, Dr. Kaplan she nods yes to cough, fever but no chest pain. As per the son who is near the bedside said she was having fever with chills and did not look good like short of breath and pale looking when she was discharged yesterday. In ED, her vitals were heart rate 136, respiratory 27 pulse ox 98% on nonrebreather after that she was put on BiPAP but subsequently she was intubated because of respiratory failure and somnolence Her basic blood work shows hypokalemia, K2.9, troponin I 0.08. CBC normal WBC count. UA is pending. Chest x-ray shows bilateral lower lobes infiltrate, left more than right. EKG shows sinus tachycardia at 117 bpm. While seeing the patient along with bander operator, patient had runs of SVT with heart rate went up 148/min and metoprolol for [place] he was ordered. she was following her bander operator Dr. Omer for mitral valve prolapse. . Her son denies any history of cardiac stent or [place]. [] Past Medical History Past Medical History (Chronic Problems): Chronic Problems (Last Reviewed 12/13/17 @ 07:47 by Vanessa Zamora) Tobacco dependency (Chronic) Hypersomnia (Chronic) Urinary incontinence (Chronic) Back pain (Chronic) Neck pain (Chronic) GERD (gastroesophageal reflux disease) (Chronic) Temporomandibular joint (TMJ) pain (Chronic) COPD (chronic obstructive pulmonary disease) (Chronic) Mitral valve prolapse (Chronic) Bipolar disorder (Chronic) Hypokalemia (Chronic) Hypoglycemia (Chronic) Hypothyroidism (Chronic) Medical History: Medical History (Last Reviewed 12/13/17 @ 07:47 by Vanessa Zamora) Urinary incontinence (Chronic) R32 Back pain (Chronic) M54.9 Neck pain (Chronic) M54.2 GERD (gastroesophageal reflux disease) (Chronic) K21.9 Temporomandibular joint (TMJ) pain (Chronic) M26.629 COPD (chronic obstructive pulmonary disease) (Chronic) J44.9 Mitral valve prolapse (Chronic) I34.1 Bipolar disorder (Chronic) F31.9 Hypokalemia (Chronic) E87.6 Hypoglycemia (Chronic) E16.2 Hypothyroidism (Chronic) E03.9 History of diverticulitis (Acute) Z87.19 Allergies amoxicillin Allergy (Severe, Verified 10/26/17 07:16) Shortness of breath AND HIVES azithromycin Allergy (Severe, Verified 10/26/17 07:17) Shortness of breath AND HIVES clindamycin Allergy (Severe, Verified 10/26/17 07:20) Shortness of breath AND HIVES doxycycline Allergy (Severe, Verified 10/26/17 07:20) Shortness of breath AND HIVES erythromycin lactobionate [From Erythrocin] Allergy (Severe, Verified 10/26/17 07:20) Shortness of breath AND HIVES Penicillins Allergy (Severe, Verified 10/26/17 07:20) Shortness of breath AND HIVES Sulfa (Sulfonamide Antibiotics) Allergy (Severe, Verified 10/26/17 07:20) Shortness of breath AND HIVES sulfamethoxazole [From Bactrim] Allergy (Severe, Verified 10/26/17 07:20) Shortness of breath AND HIVES trimethoprim [From Bactrim] Allergy (Severe, Verified 10/26/17 07:20) Shortness of breath AND HIVES tramadol Allergy (Verified 10/23/17 16:51) Unknown codeine [From Tylenol-Codeine #3] Adverse Reaction (Verified 10/23/17 16:51) Nausea/Vom/Diarrhea terbutaline [From Brethine] Adverse Reaction (Verified 10/23/17 16:51) Other ANITHISTAMINES Allergy (Uncoded 10/23/17 16:51) Unknown Home Medications: Ambulatory Orders Medication Instructions Recorded Atenolol [Tenormin (beta Doretha)] 25 mg PO BID 09/16/14 Diazepam [Valium] 5 mg PO BID 06/23/14 Lamotrigine [Lamictal] 200 mg PO BID 06/23/14 Surgical History: Surgical History (Last Reviewed 12/13/17 @ 07:47 by Vanessa Zamora) History of cholecystectomy (Resolved) Z98.890, Z90.49 History of appendectomy (Resolved) Z98.890, Z90.49 History of dilatation and curettage (Resolved) Z98.890 History of left oophorectomy (Resolved) Z98.890, Z90.721 History of section (Resolved) Z98.891 Surgical History: - - Emergency 1993 Left ovary follapian tube and ovary removed 1998 Throat biopsy: benign 1999 Hydrothermal ablation and D AND C 2004 Emergency appendectomy 2008 Cholecystectomy lap 2002 Smoking Status: Former smoker - *Family History Paternal Family History: Family History (Last Reviewed 12/13/17 @ 07:47 by Vanessa Zamora) Mother Hypertension Pulmonary embolism Psychiatric care Father Lung cancer Grandmother Breast cancer Sister Asthma Seizures Psychiatric care Depression Son Depression Psychiatric care ADHD Daughter Depression Psychiatric care Bipolar 1 disorder History Items: Hypertension Review of Systems Constitutional: Reports: Chills, Fever Respiratory: Reports: Shortness of Breath Neurological: Reports: Confusion Unable to obtain accurate/complete ROS d/t: Patient was decreased LOC and then intubated VTE Information - Inpt Only VTE Present on Admission: No VTE Mechan Device Prophylaxis: SCD's VTE Pharm Prophylaxis ordered?: Yes Patient Problems: Active and Suspected Problems (Last Reviewed 12/13/17 @ 07:47 by Vanessa Zamora) Acute on chronic respiratory failure with hypoxia and hypercapnia (Acute) Multifocal possible HCAP (Acute) Elevated troponin (Acute) - Physical Exam General: Lethargic, - - Initially, altered mental status, somnolent and then intubated HEENT: Atraumatic, PERRLA, EOMI, Normocephalic Oral: - - ET and OG tube Neck: Supple, No JVD, Negative Carotid Bruits Lungs: Diminished, - - On mechanical ventilator Cardiovascular: Regular rate, Normal S1, Normal S2, No murmurs, Tachycardic Abdomen: Bowel Sounds Present, Soft, Non Tender, Hypoactive Bowel Sounds Extremities: No edema, Capillary Refill Less than 3 Seconds Skin: No rashes, No breakdown Musculoskeletal: Muscle Wasting Neurological: - - Cannot assess neurologically because patient is intubated and sedated Vital Signs Temp Pulse Resp BP Pulse Ox 99.3 F H 149 H 15 135/117 H 100 04/15/18 16:42 04/15/18 18:10 04/15/18 18:10 04/15/18 18:00 04/15/18 18:10 Oxygen Flow Rate (L/min) 15 Oxygen Delivery Method Mechanical Ventilator Weight: 131 lb 13.383 oz Body Mass Index (BMI) 22.6 Laboratory Tests Past 24 Hrs WBC 6.7 RBC 4.09 L Hgb 12.7 Hct 38.6 MCV 94.4 MCH 31.1 MCHC 32.9 WBC Assessment/Plan All Active Problems (Last Reviewed 12/13/17 @ 07:47 by Vanessa Zamora) Acute on chronic respiratory failure with hypoxia and hypercapnia (Acute) Multifocal possible HCAP (Acute) Elevated troponin (Acute) History of cholecystectomy (Resolved) History of appendectomy (Resolved) History of dilatation and curettage (Resolved) History of left oophorectomy (Resolved) History of section (Resolved) History of diverticulitis (Acute) The patient is a 53 year old F with multiple comorbidities, predominantly COPD on 4 L of home oxygen, recently was admitted in [facility] from last week, to Sunday was brought in to ER by ambulance for shortness of breath, cough and decreased level of consciousness. Before I saw the patient, patient was intubated for respiratory failure and decreased level of consciousness. As per ER physician, Dr. Kaplan she nods yes to cough, fever but no chest pain. As per the son who is near the bedside said she was having fever with chills and did not look good like short of breath and pale looking when she was discharged yesterday. In ED, her vitals were heart rate 136, respiratory 27 pulse ox 98% on nonrebreather after that she was put on BiPAP but subsequently she was intubated because of respiratory failure and somnolence Her basic blood work shows hypokalemia, K2.9, troponin I 0.08. CBC normal WBC count. UA is pending. Chest x-ray shows bilateral lower lobes infiltrate, left more than right. EKG shows sinus tachycardia at 117 bpm. While seeing the patient along with bander operator, patient had runs of SVT with heart rate went up 148/min and metoprolol for WY he was ordered. she was following her bander operator Dr. Omer for mitral valve prolapse. Her son denies any history of cardiac stent or WY. 1. Acute on chronic combined hypercarbic respiratory failure most probably secondary to multifocal pneumonia/COPD exacerbation: Patient is being admitted in ICU on ventilator. Repeat ABG and adjust the setting of ventilator accordingly. Patient intubated with 7.5 millimeters ET tube. Currently on 50% FiO2/450 mL/14/5. Quill Stripper consult. Patient is on Diprivan drip. Fentanyl drip added. 2. Severe sepsis (fever, T 100.8 Fahrenheit, tachycardia, hypoxia and tachypnea and lactic acidosis) secondary to bilateral lower lobes, multifocal, probably healthcare associated pneumonia: Patient has multiple antibiotic allergies, therefore started on IV aztreonam and Levaquin in ER. Vancomycin added. Pneumonia workup including urinary antigen, sputum culture, blood culture. Lactic acid is mildly elevated 2.1. Repeat chest x-ray portable tomorrow a.m. 3. Elevated troponin, possible due to demand ischemia or NSTEMI: Serial troponin enzymes. Cardiology has been consulted. 2D echo ordered. On aspirin and a statin. FLP ordered tomorrow a.m. Sinus tachycardia with transient PSVT; exact etiology unclear but possible secondary to severe sepsis: 5 mg IV metoprolol was given. 4. Decreased level of consciousness, acute encephalopathy most probably secondary to metabolic/infectious etiology: Currently patient is sedated on ventilator. Treat the underlying disorder. 5. COPD possible acute exacerbation: Bronchodilator. IV Solu-Medrol. Chest physiotherapy. Other comorbidities include nicotine dependence, GERD, mitral valve prolapse, bipolar disorder, chronic urinary incontinence and nicotine dependency: Multiple comorbidities complicates the present care and expect difficult and prolonged recovery Prognosis guarded: This note was generated with [employer] dictation software. Every effort was made to ensure accuracy, however computerized hollow handle bench worker mistakes may persist. Total critical time spent in H AND P including examination, review of imaging test and lab, plan of management, and discussion with the son in ER: 60 minutes Laboratory Results 04/15/18 16:50: WBC 6.7, RBC 4.09 L, Hgb 12.7, Hct 38.6, MCV 94.4, MCH 31.1, MCHC 32.9, RDW 12.6, RDW Differential 43.3, Plt Count 196, MPV 11.2, Immature Gran % (Auto) 0.600, Neut % (Auto) 75.6 H, Lymph % (Auto) 14.1 L, [place] % (Auto) 9.3, Eos % (Auto) 0.0, Baso % (Auto) 0.4, Absolute Neuts (auto) 5.1, Absolute Lymphs (auto) 0.94, Total Counted Not Reportable, Diff Path Review February, Platelet Estimate ADEQUATE, Anisocytosis RARE, Macrocytosis RARE 04/15/18 16:50: Sodium 139, Potassium 2.9 L, Chloride 97 L, Carbon Dioxide 29.0, Anion Gap 13, BUN 20 H, Creatinine 0.58, Estim Creat Clear Calc 97.98, Est GFR (MDRD) Af Amer 140, Est GFR (MDRD) Non-Af 116, BUN/Creatinine Ratio 34.5 H, Glucose 122 H, Calcium 8.7, Troponin I 1.080 H* 04/15/18 16:50: Lactic Acid 2.1 H 04/15/18 17:04: Specimen Type ART, Sample Site R Radial, pH 7.35, Bicarbonate Actual 27.9 H, POC Total CO2 29, Base Excess 2, O2 Saturation 98, ABG pCO2 50.3 H, ABG pO2 109 H, Wen Test POS, O2 Delivery Device NRB Mask, Liter Flow 15.0, Blood Gas Notified Whom ED MD, Blood Gas Notified Time 1655 04/15/18 18:15: Urine Color Yellow, Urine Clarity Clear, Urine pH 6.0, Ur Specific Jupiter 1.025, Urine Protein 100 H, Urine Glucose (UA) Normal, Urine Ketones 150 H, Urine Occult Blood 150 H, Urine Nitrite Negative, Urine Bilirubin Negative, Urine Urobilinogen Normal, Ur Leukocyte Esterase Negative, Urine RBC 0-5 SEEN, Urine WBC 0-5 SEEN, Ur Squamous Epith Cells 0 SEEN, Amorphous Sediment 1+, Urine Bacteria RARE, Urine Mucus 1+ Clinical Impression(s) from Imaging Studies Chest X-Ray 04/15/18 16:45 IMPRESSION: Airspace opacity in the lower lobes, left greater than right. This is likely infectious in etiology. Chest X-Ray 04/15/18 18:10 IMPRESSION: Endotracheal tube and feeding tube placement. Bilateral infiltrates or edema. Code Visit Inpatient E AND M: 70846 Init Hosp L3 04/15/18 1944 <Electronically signed by Issac Rubio MD> Date Issac Rubio MD Cosigner Signature: Date (if applicable) CC: Sofy Richter DO; Issac Rubio MD Signed URINALYSIS, COMPLETE Collected: 04/15/2018 Status: F Source: [place] 6:[address] [facility] REPOSITORY Order Comment: Has pt arrived? Y How was Urine Obtained? SQUARING MACHINE OPERATOR TO SPECIFY TYPE CODE TESTS RESULT OUT OF RANGE REFERENCE UNITS LAB L400.3000 Yellow COLOR Normal Yellow LAB L400.3050 Clear Normal CLARITY Clear LAB L400.3200 Normal mg/dl Normal GLUCOSE, UR Normal LAB L400.3300 Negative mg/dL Normal BILIRUBIN URINE Negative LAB L400.3400 Negative mg/dl High KETONE UR 150 Result Comment: CRITICAL VALUE *H CRITICAL VALUE VERIFIED. CALLED TO KERVIN IN ER 04/15/18 1838 Lissette Roth. RESULTS READ BACK BY SAME . LAB L400.3465 1.002-1.030 Normal SP.GR. DIPSTX 1.025 LAB L400.3550 5.0 - 8.0 pH UR Normal 6.0 LAB L400.3600 Negative mg/dl PROT High DIPSTX 100 LAB L400.3700 Normal mg/dl Normal UROBILI Normal LAB L400.3750 Negative Normal NITRITE UR Negative LAB L400.3780 Negative /ul High OCCULT BLOOD-UR 150 LAB L400.3800 Negative /ul LEUK Normal ESTERASE Negative LAB L400.4050 0-5 /hpf WBC Normal 0-5 SEEN LAB L400.4100 0-5 /hpf Normal RBC-UA 0-5 SEEN LAB L400.4150 5-10 /hpf SQUAM 0 Normal EPI SEEN LAB L400.4300 None Seen /hpf Normal BACTERIA RARE LAB L400.4350 <or=2+ /hpf 1+ Normal MUCUS, URINE LAB L400.4900 1+ Normal AMORPHOUS Performed By: #### L400.0001 #### [facility] [place], [address] STREP Observed: 04/15/2018 Status: F Source: [place] PNEUMONIAE ANTIG(UR,CSF) 6:[address] [facility] REPOSITORY S pneumo Ag URINE INTERPRETATION Negative Urine Presumptive negative for pneumococcal pneumonia, suggesting no current or recent pneumococcal infection. Infection due to S pneumoniae cannot be ruled out since the antigen present in the sample may be below the detection limit of the test. Strep pneumo Test Negative URINE (See interpretation below) Performed By: #### M300.4600 #### [facility] [address] [place] [address] Observed: 04/15/2018 Status: F Source: [place] LEGIONELLA ANTIGEN 6:[address] [facility] URINE REPOSITORY Specimen Source: URINE, MAZA Legionella, UR Legionella Antigen result interpretation: Negative Presumptive negative for Legionella pneumophila serogroup 1 antigen in urine, suggesting no recent or current infection. Legionella Ag, Urine Negative (See interpretation below) Performed By: #### M300.4500 #### [facility] [address] [place] [address] Observed: 04/15/2018 Status: F Source: [place] CULTURE, URINE 6:[address] [facility] REPOSITORY Has pt arrived? Y Urine Culture Culture exhibits no growth. Performed By: #### M100.0650 #### [facility] [address] [place] [address] EMERGENCY DEPARTMENT Observed: 04/15/2018 Status: F Source: [place] SUMMARY 6:[address] [facility] REPOSITORY [facility] Medical Records Department [address] [place] [id number] Emergency Department Summary 04/15/18 1753 MR#: [id number] Acct: [id number] Name: ALEXEI FOWLER Rep #: [id number] : 1965 53 From: Ventura Baez MD PCP: Sofy Richter DO Status: REG ER - ER Visit Summary Date of Service: 04/15/18 Chief Complaint: Decreased level of consciousness, cough difficulty breathing History of Present Illness: The patient is a 53 F with multiple medical problems who was recently admitted to the hospital for exacerbation of COPD. She is oxygen dependent at 4 L by nasal cannula. History is limited secondary to decompressed mental status and respiratory distress. She nods yes to cough. She nods yes to fever. She nodded no to chest pain. She nodded no to history of PE or DVT. Review of prior records indicates patient has history of hyperglycemia, GERD, COPD, hypothyroidism, diverticulitis and bipolar affective disorder. She is status post appendectomy cholecystectomy and oophorectomy uncertain hysterectomy. Physical Examination: Patient is tachycardic tachypneic and hypoxic. She is not alert she is not oriented. Head is atraumatic nor cephalic. Pupils equal round reactive. Extra muscle intact. Sclerae anicteric. Posterior pharynx without erythema XA. Uvula midline. Mucosa is dry. Trach is midline. There is no stridor. There is minimal air movement with high-pitched wheezing noted. Heart is rapid and regular. Abdomen is soft nontender. She moves extremities to tactile stimulus. With tactile stimulus and telling her to perform simple tasks she will perform them. There is no clonus or Babinski sign. Patient was placed on BiPAP after review of her ABG. In spite of BiPAP she is more somnolent. Concern for airway management and increased CO2 retention. Test Results: EKG reveals a sinus tachycardia with nonspecific ST-T wave changes which are new from prior. Heart rate 117. NC interval is 130 ms and QRS complex duration is 76 ms. QT interval is normal. Portable chest x-ray interpreted by me as bilateral interstitial pneumonia. White count is normal with 76 segs. ABG reveals CO2 retention with significant AA gradient. Emergency Department Course and Treatment: IV was established. She was treated with DuoNeb and albuterol. After review of chest x-ray she was treated with levofloxacin and Azactam based on her allergies and severity of her reactions. Because patient has become more somnolent on BiPAP will intubate to protect her airway. Treatment Plan: Treat for severe sepsis with bilateral pneumonia and intubation. Since patient has hypokalemia we will treat with IV potassium. Since troponin is elevated and she does have new ST-T wave changes she will receive 300 mg aspirin rectally by suppository. Since patient was medically paralyzed with rocuronium she was placed on a propofol drip. Dr. Merino who is on-call for cardiology was paged to inform him of patient. Dr. Rubio was paged as the hospitalist since she will require admission to ICU. Procedure: 1. Oral tracheal intubation 7.5 endotracheal tube via RSI 2. Orogastric tube placement per ED physician 3. Maza per nursing staff 4. Critical care time 39 minutes Disposition: Admit ICU critical condition Impression: 1. Respiratory failure with hypercapnia and hypoxia 2. Bilateral interstitial pneumonia 3. Severe sepsis 4. Exacerbation of COPD with bronchospasm 5. Sinus tachycardia documented on EKG 6. NSTEMI 7. Hypokalemia This note was generated with [employer] dictation software. It may contain incorrect words, spelling, and punctuation that were not noted in review of the chart prior to signing ED Disposition - Plan for ED Patient: Chief Complaint: Shortness of Breath Referrals: Sofy Ricther, [Primary Care Provider] - What to do if you have Problems For any increased pain, shortness of breath, bleeding, nausea or vomiting, chest pain, or any unexpected problems, contact your Primary Care Provider. Call [facility] ([phone]) or report to the closest Emergency Room. Call 911 if necessary. 04/15/18 1812 <Electronically signed by Ventura Baez MD> Date Ventura Baez MD Cosigner Signature (If Indicated): Date CC: Yamil Merino MD; Sofy Richter DO CHEST 1 VIEW Observed: 04/15/2018 Status: F Source: [place] (PORTABLE) 6:[address] [facility] REPOSITORY [facility] Imaging Services [address] [place] [address] [place] [address] Chest 1 View (Portable) MR#: [id number] Acct: [id number] Name: ALEXEI FOWLER Rep #: [id number] : 1965 F 53 From: Elias Paulino MD PCP: Sofy Richter DO Status: ADM IN Study: Chest 1 View (Portable) Date of Exam: 04/15/18 Exam# [id number] Ordering Dr: Ventura Baez MD STUDY: X-RAY CHEST REASON FOR EXAM: Female, 53 years old. Tube placement. TECHNIQUE: Single AP portable view of the chest. COMPARISON: Earlier the same day. FINDINGS: Endotracheal tube, 2 cm above the milka. Feeding tube extends to the stomach in the left upper quadrant. There are monitoring devices. There is hyperinflation of the lungs consistent with chronic obstructive lung disease (COPD). There are lower lung opacities on the left more than the right. There is no demonstrated pleural abnormality. Normal size heart. Normal mediastinum and ashli. Normal visualized pulmonary arteries. Normal visualized aortic arch and descending thoracic aorta. Normal visualized thoracic spine. Normal visualized ribs, clavicles, and shoulders. There is no demonstrated abnormality of the visualized soft tissue structures of the upper abdomen. RAD/Chest 1 View (Portable) IMPRESSION: Endotracheal tube and feeding tube placement. Bilateral infiltrates or edema. Electronically Signed: Elias Paulino MD at 19:29 EDT , Service support , CC: Sofy Richter DO; Ventura Baez MD Lieutenant Colonel: Signed Observed: 04/15/2018 Status: F Source: [place] CULTURE, BLOOD (WB) 5:[address] [facility] REPOSITORY BC No growth in 5 days. Performed By: #### M200.1000 #### [facility] [address] [place], [address] BLOOD GASES BY CPS Collected: 04/15/2018 Status: F Source: [place] 5:[address] [facility] REPOSITORY TYPE CODE TESTS RESULT OUT OF RANGE REFERENCE UNITS LAB L9000.9990 Normal BLD GAS TYPE ART LAB L9001.1000 Normal SITE R Radial LAB L9001.1010 Normal WEN TEST POS LAB L9001.1050 O2 Normal Delivery Dev NRB Mask LAB L9001.1055 /min Normal LPM 15.0 LAB L9001.1104 Normal Results To ED MD LAB L9001.1105 Normal Time Given 1655 LAB L9001.1110 7.35-7.45 pH Normal - I-STAT 7.35 LAB L9001.1210 35-45 mmHg High pCO2 - ISTAT 50.3 LAB L9001.1310 75-100 mmHG High PO2 I-STAT 109 LAB L9001.2300 22-26 mmol/L High HCO3 ISTAT 27.9 LAB L9001.2400 -2 to +2 mmol/L BE Normal ISTAT 2 LAB L9001.2415 mmol/L Normal TOTAL CO2 29 ISTAT LAB L9001.2425 95-99 % Normal SO2 ISTAT 98 Performed By: #### L9000.0800 #### [facility] Point of Care [address] [place] [address] CHEST 1 VIEW Observed: 04/15/2018 Status: F Source: [place] (PORTABLE) 4:[address] [facility] REPOSITORY [facility] Imaging Services [address] [place] [address] Chest 1 View (Portable) MR#: [id number] Acct: [id number] Name: ALEXEI FOWLER Rep #: [id number] : 1965 F 53 From: Terrence Lemon MD PCP: Sofy Richter DO Status: REG ER Study: Chest 1 View (Portable) Date of Exam: 04/15/18 Exam# [id number] Ordering Dr: Ventura Baez MD STUDY: X-RAY CHEST REASON FOR EXAM: Female, 53 years old. Shortness of breath TECHNIQUE: Frontal view of the chest COMPARISON: 03/03/2018 FINDINGS: There is airspace opacity in the lower lobes, left greater than right. This is likely infectious in etiology. There are no pleural effusions. There is no pneumothorax. The heart is normal in size. The visualized osseous structures are within normal limits. RAD/Chest 1 View (Portable) IMPRESSION: Airspace opacity in the lower lobes, left greater than right. This is likely infectious in etiology. Electronically Signed: Terrence Lunaalceyasha, at 17:47 EDT Tel , Service support , CC: Sofy Richter DO; Vetnura Baez MD Lieutenant Colonel: Signed CBC W/DIFF, AUTOMATED Collected: 04/15/2018 Status: C Source: [place] 4:[address] [facility] REPOSITORY TYPE CODE TESTS RESULT OUT OF RANGE REFERENCE UNITS LAB L100.1000 4.4-11.0 K/mm3 Normal WBC 6.7 LAB L100.1200 4.2-5.4 M/mm3 Low RBC 4.09 LAB L100.1300 12.0-15.0 g/dl Normal HGB 12.7 LAB L100.1400 37-47 % Normal HCT 38.6 LAB L100.1500 81-99 fL Normal MCV 94.4 LAB L100.1600 27.0-32.0 pg Normal MCH 31.1 LAB L100.1700 32-36 g/gl Normal MCHC 32.9 LAB L100.1810 11.6-14.6 % Normal RDW CV 12.6 LAB L100.1820 35.1-43.9 fl Normal RDW SD 43.3 LAB L100.1900 150-450 K/mm3 Normal PLT 196 LAB L100.2000 6.2-12.0 fl Normal MPV 11.2 LAB L100.2100 47-70 % High NEUT% 75.6 LAB L100.2200 19-41 % Low LY% 14.1 LAB L100.2300 0-10 % Normal MONO% 9.3 LAB L100.2400 0-5 % Normal EO% 0.0 LAB L100.2500 0-1 % Normal BASO% 0.4 LAB L100.2550 0.0-0.9 % Normal IM GRAN % 0.600 Result Comment: IG% - Immature Granulocytes (promyelocytes, myelocytes and metamyelocytes) > 1% indicates that a LEFT SHIFT is Present. LAB L100.2620 2.0-7.7 X10 3/uL Normal Absolute Neut 5.1 LAB L100.2720 0.83-4.51 X10 3/ul Normal Absolute Lymph 0.94 LAB L100.5500 ADEQ PLT Normal EST ADEQUATE LAB L100.7300 ANISO Normal RARE LAB L100.7800 Normal MACROCYTE RARE LAB L100.9900 PATH Normal REV Reviewed Result Comment: AMENDED REPORT 04/16/18 1603 PATH REV previously reported as: Dolores sepulveda Performed By: #### L100.0100 #### [facility] [address] [place], [address] BASIC METABOLIC Collected: 04/15/2018 Status: F Source: [place] PROFILE (BMP) 4:[address] [facility] REPOSITORY TYPE CODE TESTS RESULT OUT OF RANGE REFERENCE UNITS LAB L501.0100 74-106 mg/dL High GLU 122 Result Comment: Fasting Glucose result from 100 to 125 mg/dL suggests IMPAIRED HOMEOSTASIS per A.D.A. criteria. Please note revised GLUCOSE reference range effective 2017. LAB L501.1000 7-18 mg/dL High BUN 20 LAB L501.1100 0.55-1.02 mg/dL Normal CREAT,SERUM 0.58 Result Comment: The validity of the calculated GFR AND GFRAA in patients over 70 years has not been determined. Clinical correlation is essential. LAB L501.1110 >60 mL/min Normal EST GFR 116 Result Comment: Non- GFR Calc LAB L501.1115 >60 mL/min Normal EST GFR - AA 140 Result Comment: GFR Calc LAB L501.1255 ml/min Normal Estimated CRCL 97.98 LAB L501.1300 10-20 RATIO High BUN/CRE 34.5 LAB L501.2200 8.5-10 mg/dL Normal .1 CA 8.7 LAB L501.5300 136-14 mmol/L Normal 5 NA 139 LAB L501.5600 3.5-5. mmol/L Low 1 K 2.9 LAB L501.5900 98-107 mmol/L Low CL 97 LAB L501.6100 21.0-3 mmol/L Normal 2.0 CO2 29.0 LAB L501.6200 5-15 Normal GAP 13 Performed By: #### L500.2500, L501.4010 #### [facility] [address] [place], [address] TROPONIN-I Collected: 04/15/2018 Status: F Source: [place] 4:[address] [facility] REPOSITORY TYPE CODE TESTS RESULT OUT OF RANGE REFERENCE UNITS LAB L501.4010 <0.045 ng/mL High alert 1.080 TROPONIN-I Result Comment: Critical Result(s) Called at: 17:59:03 04/15/2018 by: LISSETTE lao in ed TROPONIN-I EXPECTED VALUES <0.045 Negative 0.045 - 0.590 Consistent with Cardiac Damage > OR = 0.600 Critical Value Not every elevated troponin is indicative of [place]. These values should be used with clinical judgement in examining the patient's clinical picture for diagnosis. To establish a diagnosis of [place] versus myocardial injury, there must be a demonstrated rise and/or fall in the troponin values, in addition to ischemic symptoms, EKG changes, new regional wall motion abnormality, and/or angiographical evidence. PLEASE NOTE: REFERENCE RANGES EDITED 18 Performed By: #### L500.2500, L501.4010 #### [facility] [address] [facility] [place], [address] LACTIC ACID Collected: 04/15/2018 Status: F Source: [place] 4:[address] [facility] REPOSITORY Order Comment: Yes/No query for Sepsis Lactate Rule Y TYPE CODE TESTS RESULT OUT OF REFERENCE UNITS RANGE LAB L503.6005 0.4-2.0 mmol/L High LACTIC ACID 2.1 Result Comment: Critical Result(s) Called at: 18:00:09 04/15/2018 by: LISSETTE LAO IN ED Performed By: #### L503.6005 #### [facility] [address] [place], [address] Observed: 04/15/2018 Status: F Source: [place] CULTURE, BLOOD (WB) 4:[address] [facility] REPOSITORY BC No growth in 5 days. Performed By: #### M200.1000 #### [facility] [address] [place], [address] CBC Collected: 04/12/2018 Status: F Source: [facility] 5:25 AM [facility] REPOSITORY TYPE CODE TESTS RESULT OUT OF REFERENCE UNITS RANGE LAB WBC(LOINC) 4.60-10.80 10 3/mcL WBC 8.70 LAB RBCCT(LOINC 4.20-5.40 10 6/mcL ) Low RBC 4.06 LAB HGB(LOINC) 12.0-16.0 G/dL Hgb 13.1 LAB HCT(LOINC) 37.0-47.0 % Hct 38.0 LAB MCV(LOINC) 80.0-94.0 fL MCV 93.8 LAB MCH(LOINC) 27.0-31.2 pg High MCH 32.2 LAB MCHC(LOINC) 33.0-37.0 G/dL MCHC 34.4 LAB RDW(LOINC) 11.5-14.5 % RDW 12.8 LAB PLT(LOINC) 130-400 10 3/mcL Platelet 167 LAB MPV(LOINC) 7.4-10.4 fL MPV 9.6 Performed By: #### CBC, ADIFF, ANEU, BMP, GFR #### [facility] [address] [address] .AUTO DIFF Collected: 04/12/2018 Status: F Source: [facility] 5:25 AM [facility] REPOSITORY TYPE CODE TESTS RESULT OUT OF REFERENCE UNITS RANGE LAB YUSUF(LOINC) 37.0-80.0 % High Neutrophil % 81.7 LAB LYM(LOINC) 10.0-50.0 % Low Lymphocyte % 9.7 LAB MON(LOINC) 1.7-13.0 % Monocyte % 8.3 LAB EO(LOINC) 0.0-7.0 % Eosinophil % 0.0 LAB BAS(LOINC) 0.0-2.5 % Basophil % 0.3 LAB ABLYM(LOIN 0.77-3.85 10 3/mcL C) Lymphocyte, 0.80 Absolute LAB NINOSKA(LOINC 0.15-1.00 10 3/mcL ) Monocyte, 0.70 Absolute LAB AEOS(LOINC 0.00-0.40 10 3/mcL ) Eosinophil, 0.00 Absolute LAB ABAS(LOINC 0.00-0.19 10 3/mcL ) Basophil, 0.00 Absolute Performed By: #### CBC, ADIFF, ANEU, BMP, GFR #### [address] [address] .NEUABS Collected: 04/12/2018 Status: F Source: [facility] 5:25 AM [facility] REPOSITORY TYPE CODE TESTS RESULT OUT OF REFERENCE UNITS RANGE LAB ANEU(LOINC) 2.85-6.16 10 3/mcL High Neutrophil, 7.10 Absolute Performed By: #### CBC, ADIFF, ANEU, BMP, GFR #### [address] [address] BMP Collected: 04/12/2018 Status: F Source: [facility] 5:25 AM [facility] REPOSITORY TYPE CODE TESTS RESULT OUT OF REFERENCE UNITS RANGE LAB GLU(LOINC) 70-105 mg/dL Glucose High Level 123 LAB NA(LOINC) 136-146 mEq/L Sodium Level 142 LAB K(LOINC) 3.5-5.1 mEq/L Potassium Level 4.9 LAB CL(LOINC) 98-107 mEq/L Chloride 104 LAB CO2(LOINC) 22-29 mEq/L CO2 High 31 LAB EBAL(LOINC mEq/L ) Electrolyte Balance 7.0 LAB BUN(LOINC) 7.0-18.0 mg/dL BUN High 18.2 LAB CRE(LOINC) 0.6-1.2 mg/dL Creatinine Lvl (s) 0.7 LAB BC(LOINC) 7-27 ratio BUN/Creatinine 26 Ratio LAB CA(LOINC) 8.4-10.2 mg/dL Calcium Lvl 8.9 Performed By: #### CBC, ADIFF, ANEU, BMP, GFR #### [address] [address] .GFR Collected: 04/12/2018 Status: F Source: [email or web address] 5:25 AM [facility] REPOSITORY TYPE CODE TESTS RESULT OUT OF REFERENCE UNITS RANGE LAB GFRAA(LOINC ml/min/1.73 ) sqm GFR >60 [place]an Result Comment: GFR Population mean for , Non- Americans Ages 20-29 = 116 mL/min/1.73 sq.m. Ages 30-39 = 107 mL/min/1.73 sq.m. Ages 40-49 = 99 mL/min/1.73 sq.m. Ages 50-59 = 93 mL/min/1.73 sq.m. Ages 60-69 = 85 mL/min/1.73 sq.m. Ages 70+ = 75 mL/min/1.73 sq.m. Chronic Kidney Disease: Less than 60 mL/min/1.73 square meters End Stage Renal Disease: Less than 15 mL/min/1.73 square meters LAB GFRNO(LOINC) ml/min/1.73sqm GFR Non- >60 Result Comment: GFR Population mean for , Non- Americans Ages 20-29 = 116 mL/min/1.73 sq.m. Ages 30-39 = 107 mL/min/1.73 sq.m. Ages 40-49 = 99 mL/min/1.73 sq.m. Ages 50-59 = 93 mL/min/1.73 sq.m. Ages 60-69 = 85 mL/min/1.73 sq.m. Ages 70+ = 75 mL/min/1.73 sq.m. Chronic Kidney Disease: Less than 60 mL/min/1.73 square meters End Stage Renal Disease: Less than 15 mL/min/1.73 square meters Performed By: #### CBC, ADIFF, ANEU, BMP, GFR #### [place] [address] [place], [place] [address] XR CHEST 1 VIEW Observed: 04/11/2018 Status: F Source: [email or web address] [facility] [employer] 7:58 AM [facility] REPOSITORY ORIGINAL Chest one view 7:52 AM 04/11/2018 HISTORY: Chest pain COMPARISON: 12/18/2017 The heart and pulmonary vessels are normal. No consolidation, atelectasis or pleural fluid seen. No acute osseous finding. Interpreted By: Pete Matos MD Preliminary Report By: Pete Matos MD Electronically Signed By: Pete Matos MD Dictated Date: 04/11/2018 8:19:12 AM Prelim Date: 04/11/2018 8:19:12 AM Sign Date: 04/11/2018 8:19:33 AM CBC Collected: 04/11/2018 Status: F Source: [facility] 7:14 AM [facility] REPOSITORY TYPE CODE TESTS RESULT OUT OF REFERENCE UNITS RANGE LAB WBC(LOINC) 4.60-10.80 10 3/mcL WBC 10.00 LAB RBCCT(LOINC 4.20-5.40 10 6/mcL ) RBC 4.58 LAB HGB(LOINC) 12.0-16.0 G/dL Hgb 14.6 LAB HCT(LOINC) 37.0-47.0 % Hct 42.6 LAB MCV(LOINC) 80.0-94.0 fL MCV 92.9 LAB MCH(LOINC) 27.0-31.2 pg High MCH 31.8 LAB MCHC(LOINC) 33.0-37.0 G/dL MCHC 34.2 LAB RDW(LOINC) 11.5-14.5 % RDW 12.5 LAB PLT(LOINC) 130-400 10 3/mcL Platelet 174 LAB MPV(LOINC) 7.4-10.4 fL MPV 9.4 Performed By: #### CBC, ADIFF, ANEU, TROP, BMP, GFR #### [place] [address] .AUTO DIFF Collected: 04/11/2018 Status: F Source: [facility] 7:14 AM [facility] REPOSITORY TYPE CODE TESTS RESULT OUT OF REFERENCE UNITS RANGE LAB YUSUF(LOINC) 37.0-80.0 % High Neutrophil % 81.1 LAB LYM(LOINC) 10.0-50.0 % Lymphocyte % 11.6 LAB MON(LOINC) 1.7-13.0 % Monocyte % 3.8 LAB EO(LOINC) 0.0-7.0 % Eosinophil % 2.7 LAB BAS(LOINC) 0.0-2.5 % Basophil % 0.8 LAB ABLYM(LOIN 0.77-3.85 10 3/mcL C) Lymphocyte, 1.20 Absolute LAB NINOSKA(LOINC 0.15-1.00 10 3/mcL ) Monocyte, 0.40 Absolute LAB AEOS(LOINC 0.00-0.40 10 3/mcL ) Eosinophil, 0.30 Absolute LAB ABAS(LOINC 0.00-0.19 10 3/mcL ) Basophil, 0.10 Absolute Performed By: #### CBC, ADIFF, ANEU, TROP, BMP, GFR #### [address] [address] .NEUABS Collected: 04/11/2018 Status: F Source: [facility] 7:14 AM [facility] REPOSITORY TYPE CODE TESTS RESULT OUT OF REFERENCE UNITS RANGE LAB ANEU(LOINC) 2.85-6.16 10 3/mcL High Neutrophil, 8.10 Absolute Performed By: #### CBC, ADIFF, ANEU, TROP, BMP, GFR #### [address] [address] TROP Collected: 04/11/2018 Status: F Source: [facility] 7:14 AM [facility] REPOSITORY TYPE CODE TESTS RESULT OUT OF REFERENCE UNITS RANGE LAB TROP(LOINC) 0.00-0.30 ng/mL Troponin <0.30 Result Comment: Below measuring range >=0.30 Consistent with cardiac damage, increased clinical risk and possibility of myocardial infarction. Serial measurements, clinical history, appropriate symptoms and/or ECG changes may help assess possibility of [place]. *Other non-acute coronary syndrome conditions such as CHF, myocarditis, pulmonary emboli, sepsis and cardiac surgery could result in myocardial damage and increased troponin levels. Performed By: #### CBC, ADIFF, ANEU, TROP, BMP, GFR #### [address] [address] BMP Collected: 04/11/2018 Status: F Source: [facility] 7:14 AM [facility] REPOSITORY TYPE CODE TESTS RESULT OUT OF REFERENCE UNITS RANGE LAB GLU(LOINC) 70-105 mg/dL Glucose High Level 120 LAB NA(LOINC) 136-146 mEq/L Sodium Level 142 LAB K(LOINC) 3.5-5.1 mEq/L Potassium Level 3.5 LAB CL(LOINC) 98-107 mEq/L Chloride 102 LAB CO2(LOINC) 22-29 mEq/L CO2 High 31 LAB EBAL(LOINC mEq/L ) Electrolyte Balance 9.0 LAB BUN(LOINC) 7.0-18.0 mg/dL BUN 14.7 LAB CRE(LOINC) 0.6-1.2 mg/dL Creatinine Lvl (s) 0.9 LAB BC(LOINC) 7-27 ratio BUN/Creatinine 16 Ratio LAB CA(LOINC) 8.4-10.2 mg/dL Calcium Lvl 9.1 Performed By: #### CBC, ADIFF, ANEU, TROP, BMP, GFR #### [place] [address] [address] .GFR Collected: 04/11/2018 Status: F Source: [facility] [employer] 7:14 AM [facility] REPOSITORY TYPE CODE TESTS RESULT OUT OF REFERENCE UNITS RANGE LAB GFRAA(LOINC ml/min/1.73 ) sqm GFR >60 Zimbabwean Result Comment: GFR Population mean for , Non- Americans Ages 20-29 = 116 mL/min/1.73 sq.m. Ages 30-39 = 107 mL/min/1.73 sq.m. Ages 40-49 = 99 mL/min/1.73 sq.m. Ages 50-59 = 93 mL/min/1.73 sq.m. Ages 60-69 = 85 mL/min/1.73 sq.m. Ages 70+ = 75 mL/min/1.73 sq.m. Chronic Kidney Disease: Less than 60 mL/min/1.73 square meters End Stage Renal Disease: Less than 15 mL/min/1.73 square meters LAB GFRNO(LOINC) ml/min/1.73sqm GFR Non- >60 Result Comment: GFR Population mean for , Non- Americans Ages 20-29 = 116 mL/min/1.73 sq.m. Ages 30-39 = 107 mL/min/1.73 sq.m. Ages 40-49 = 99 mL/min/1.73 sq.m. Ages 50-59 = 93 mL/min/1.73 sq.m. Ages 60-69 = 85 mL/min/1.73 sq.m. Ages 70+ = 75 mL/min/1.73 sq.m. Chronic Kidney Disease: Less than 60 mL/min/1.73 square meters End Stage Renal Disease: Less than 15 mL/min/1.73 square meters Performed By: #### CBC, ADIFF, ANEU, TROP, BMP, GFR #### [facility] [address] [place], [place] [address] 12 LEAD ELECTROCARDIOGRAM Observed: 03/06/2018 Status: F Source: [place] 2:47 PM [facility] Cardiovascular Services [address] [place] [address] 12 Lead EKG 03/03/181932 MR#: [id number] Acct: [id number] Name: ALEXEI FOWLER Rep #: [id number] : 1965 53 From: Gerson Veliz MD Attending Dr: Status: DEP ER Ordering Dr: Dev Chavez MD Date: 03/03/18 Location: ED Sex: F C Admitted: Test Reason : SOB Blood Pressure : / mmHG Vent. Rate : 074 BPM Atrial Rate : 074 BPM P-R Int : 104 ms QRS Dur : 068 ms QT Int : 388 ms P-R-T Axes : 066 068 074 degrees QTc Int : 430 ms Sinus rhythm with short NC Otherwise normal ECG Confirmed by ANDREA PALMER, GERSON ([id number]), editor book LURDES CORADO ([id number]) on 03/06/2018 2:47:06 PM Referred By: ADRIEN Confirmed By:GERSON VELIZ MD 03/06/18 1447 Date Gerson Veliz MD CC: Dev Chavez MD; Sofy Richter DO Signed DISCHARGE INSTRUCTION Observed: 03/03/2018 Status: F Source: [place] 8:[address] [facility] REPOSITORY [facility] Medical Records Department [address] [place] [address] Discharge Instruction 03/03/182021 MR#: [id number] Acct: [id number] Name: MICHELINE FOWLERYAYA Guevara Rep #: [id number] : 1965 53 From: Dev Chavez MD PCP: Sofy Richter DO Status: REG ER ED Disposition - Plan for ED Patient: Disposition: Home or Assisted Living Chief Complaint: Shortness of Breath Instructions: ED COPD Flare Prescriptions: Prednisone [Deltasone] 60 mg PO DAILY #12 tab Referrals: Sofy Richter DO [Primary Care Provider] - What to do if you have Problems For any increased pain, shortness of breath, bleeding, nausea or vomiting, chest pain, or any unexpected problems, contact your Primary Care Provider. Call [facility] ([phone]) or report to the closest Emergency Room. Call 911 if necessary. 03/03/182022 <Electronically signed by Dev Chavez MD> Date Dev Chavez MD Cosigner Signature (If Indicated): Date CC: Sofy Richter DO EMERGENCY DEPARTMENT Observed: 03/03/2018 Status: F Source: [place] SUMMARY 8:[address] [facility] REPOSITORY [facility] Medical Records Department [address] [place] [address] Emergency Department Summary 03/03/182020 MR#: [id number] Acct: [id number] Name: ALEXEI FOWLER Rep #: [id number] : 1965 53 From: Dev Chavez MD PCP: Sofy Richter DO Status: REG ER - ER Visit Summary Date of Service: 03/03/18 Chief Complaint: Shortness of breath History of Present Illness: The patient is a 53 F he has been short of breath for 6 days. She has history of COPD. She has had a cough is been productive of the sputum. She has had rhinorrhea. She has pain in the lower parts of her chest from all of the coughing. She denies fevers. She does not wear home oxygen. She took a couple leftover steroid pills been on the full dose. She has been using her nebulizers at home. Physical Examination: Vital signs reviewed. HEENT exam unremarkable. Heart is regular rate and rhythm without murmurs. Lungs have diffuse respiratory and expiratory wheezing. Abdomen is soft and nontender. Extremities reveal no edema. Skin exam normal. Neurologic exam normal. Test Results: EKG is normal sinus rhythm. Labs are unremarkable. Chest x-ray reveals her chronic changes Emergency Department Course and Treatment: Patient was given albuterol and DuoNeb treatments. She was also given prednisone. Upon reevaluation she feels improved. She will be discharged home with prednisone. She has nebulizers. She will follow- up with her PCP Treatment Plan: [] Disposition: Discharge Impression: COPD exacerbation This note was generated with [employer] dictation software. It may contain incorrect words, spelling, and punctuation that were not noted in review of the chart prior to signing ED Disposition - Plan for ED Patient: Chief Complaint: Shortness of Breath Referrals: Sofy Richter DO [Primary Care Provider] - What to do if you have Problems For any increased pain, shortness of breath, bleeding, nausea or vomiting, chest pain, or any unexpected problems, contact your Primary Care Provider. Call [employer] [facility] ([phone]) or report to the closest Emergency Room. Call 911 if necessary. 03/03/182021 <Electronically signed by Dev Chavez MD> Date Dev Chavez MD Cosigner Signature (If Indicated): Date CC: Sofy Richter DO CHEST 1 VIEW Observed: 03/03/2018 Status: F Source: [place] (PORTABLE) 7:[address] [facility] REPOSITORY [facility] Imaging Services [address] [place] [address] Chest 1 View (Portable) MR#: [id number] Acct: [id number] Name: DENISEMILAALEXEI J Rep #: [id number] : 1965 F 53 From: Lurdes Hurst MD PCP: Sofy Richter DO Status: REG ER Study: Chest 1 View (Portable) Date of Exam: 03/03/18 Exam# [id number] Ordering Dr: Dev Chavez MD XR Chest 1 View INDICATION: PT STATED SHORTNESS OF BREATH COMPARISON: None FINDINGS: Heart size and pulmonary vascularity are within normal limits. The lungs are clear without evidence of airspace consolidation or pleural effusion. The osseous structures are grossly unremarkable. RAD/Chest 1 View (Portable) IMPRESSION: No radiographic evidence of acute intrathoracic disease. at 2012 Reported and signed by: Lurdes Hurst MD Electronically Signed: Lurdes Hurst MD at 20:11 EDT Tel , Service support , CC: Dev Chavez MD; Sofy Richter DO Lieutenant Colonel: Signed CBC W/DIFF, AUTOMATED Collected: 03/03/2018 Status: F Source: [place] 7:[address] [facility] REPOSITORY TYPE CODE TESTS RESULT OUT OF RANGE REFERENCE UNITS LAB L100.1000 4.4-11.0 K/mm3 Normal WBC 7.9 LAB L100.1200 4.2-5.4 M/mm3 Normal RBC 4.49 LAB L100.1300 12.0-15.0 g/dl Normal HGB 14.4 LAB L100.1400 37-47 % Normal HCT 42.6 LAB L100.1500 81-99 fL Normal MCV 94.9 LAB L100.1600 27.0-32.0 pg High MCH 32.1 LAB L100.1700 32-36 g/gl Normal MCHC 33.8 LAB L100.1810 11.6-14.6 % Normal RDW CV 11.8 LAB L100.1820 35.1-43.9 fl Normal RDW SD 40.7 LAB L100.1900 150-450 K/mm3 Normal PLT 226 LAB L100.2000 6.2-12.0 fl Normal MPV 11.9 LAB L100.2100 47-70 % Low NEUT% 34.6 LAB L100.2200 19-41 % High LY% 55.0 LAB L100.2300 0-10 % Normal MONO% 5.8 LAB L100.2400 0-5 % Normal EO% 3.3 LAB L100.2500 0-1 % Normal BASO% 1.0 LAB L100.2550 0.0-0.9 % Normal IM GRAN % 0.300 Result Comment: IG% - Immature Granulocytes (promyelocytes, myelocytes and metamyelocytes) > 1% indicates that a LEFT SHIFT is Present. LAB L100.2620 2.0-7.7 X10 3/uL Normal Absolute Neut 2.8 LAB L100.2720 0.83-4.51 X10 3/ul Normal Absolute Lymph 4.37 Performed By: #### L100.0100 #### [facility] [address] [place], [place], [address] BASIC METABOLIC Collected: 03/03/2018 Status: F Source: [place] PROFILE ([facility]) 7:[address] [facility] REPOSITORY TYPE CODE TESTS RESULT OUT OF RANGE REFERENCE UNITS LAB L501.0100 74-106 mg/dL Normal GLU 76 Result Comment: Please note revised GLUCOSE reference range effective 2017. LAB L501.1000 7-18 mg/dL High BUN 24 LAB L501.1100 0.55-1.02 mg/dL High CREAT,SERUM 1.04 Result Comment: The validity of the calculated GFR AND GFRAA in patients over 70 years has not been determined. Clinical correlation is essential. LAB L501.1110 >60 mL/min Low EST GFR 59 Result Comment: Non- GFR Calc LAB L501.1115 >60 mL/min Normal EST GFR - AA 72 Result Comment: GFR Calc LAB L501.1255 ml/min Normal Estimated CRCL 52.34 LAB L501.1300 10-20 RATIO High BUN/CRE 23.1 LAB L501.2200 8.5-10 mg/dL Low .1 CA 8.4 LAB L501.5300 136-14 mmol/L Normal 5 NA 141 LAB L501.5600 3.5-5. mmol/L Normal 1 K 3.8 LAB L501.5900 98-107 mmol/L Normal CL 106 LAB L501.6100 21.0-3 mmol/L Normal 2.0 CO2 31.0 LAB L501.6200 5-15 Low GAP 4 Performed By: #### L500.2500, L501.4010 #### [facility] [address] [place], [address] TROPONIN-I Collected: 03/03/2018 Status: F Source: [place] 7:[address] [facility] REPOSITORY TYPE CODE TESTS RESULT OUT OF RANGE REFERENCE UNITS LAB L501.4010 <0.045 ng/mL Normal < 0.015 TROPONIN-I Result Comment: TROPONIN-I EXPECTED VALUES <0.045 Negative 0.045 - 0.590 Consistent with Cardiac Damage > OR = 0.600 Critical Value Not every elevated troponin is indicative of [place]. These values should be used with clinical judgement in examining the patient's clinical picture for diagnosis. To establish a diagnosis of [place] versus myocardial injury, there must be a demonstrated rise and/or fall in the troponin values, in addition to ischemic symptoms, EKG changes, new regional wall motion abnormality, and/or angiographical evidence. PLEASE NOTE: REFERENCE RANGES EDITED 18 Performed By: #### L500.2500, L501.4010 #### [facility] [address] [place], [address] COMPREHENSIVE METABOLIC Collected: 02/12/2018 Status: F Source: [facility] [facility] 2:[address] [facility] REPOSITORY TYPE CODE TESTS RESULT OUT OF RANGE REFERENCE UNITS LAB L501.0100 74-106 mg/dL High GLU 134 Result Comment: Fasting Glucose result greater than or equal to 126 mg/dL suggests DIABETES MELLITUS per A.D.A. criteria. Please note revised GLUCOSE reference range effective 2017. LAB L501.1000 7-18 mg/dL Normal BUN 15 LAB L501.1100 0.55-1.02 mg/dL Normal CREAT,SERUM 0.89 Result Comment: The validity of the calculated GFR AND GFRAA in patients over 70 years has not been determined. Clinical correlation is essential. LAB L501.1110 >60 mL/min Normal EST GFR 71 Result Comment: Non- GFR Calc LAB L501.1115 >60 mL/min Normal EST GFR - AA 86 Result Comment: GFR Calc LAB L501.1300 10-20 RATIO Normal BUN/CRE 16.9 LAB L501.1500 6.4-8.2 g/dL T Normal PROT 7.5 LAB L501.1800 3.2-5.0 g/dL Normal ALB 3.9 LAB L501.1950 2.2-4.2 g/dL Normal GLOB 3.6 LAB L501.2000 0.9-2.4 RATIO Normal A/G 1.1 LAB L501.2200 8.5-10.1 mg/dL CA Normal 8.6 LAB L501.4100 15-37 U/L Normal AST 30 LAB L501.4305 45-117 U/L Normal ALK P 104 LAB L501.4405 13-56 U/L Normal ALT 22 LAB L501.4600 0.20-1.00 mg/dL T Normal BILI 0.20 LAB L501.5300 136-145 mmol/L NA Normal 141 LAB L501.5600 3.5-5.1 mmol/L K Normal 3.6 LAB L501.5900 98-107 mmol/L CL Normal 104 LAB L501.6100 21.0-32.0 mmol/L Normal CO2 28.0 LAB L501.6200 5-15 Normal GAP 9 Performed By: #### L500.4050 #### [facility] [address] [place], [address] XR WRIST MINIMUM 3 Observed: 12/18/2017 Status: F Source: [employer] RIGHT 3:26 PM [facility] REPOSITORY ORIGINAL XR WRIST MINIMUM 3 VIEWS RIGHT CLINICAL STATEMENT: pain COMPARISON: None FINDINGS:Mild degenerative changes along the radial aspect of the intercarpal joints and 1st carpometacarpal joint is noted. There is no obvious cortical disruption to suggest an acute fracture. There i s no elevation of the pronator fat pad or focal soft tissue swelling. IMPRESSION:No acute process Interpreted By: Selena Sena MD Preliminary Report By: Selena Sena MD Electronically Signed By: Selena Sena MD Dictated Date: 12/18/2017 3:39:09 PM Prelim Date: 12/18/2017 3:39:09 PM Sign Date: 12/18/2017 3:39:33 PM XR HAND MINIMUM 3 Observed: 12/18/2017 Status: F Source: [email or web address] VIEWS RIGHT 3:26 PM [facility] REPOSITORY ORIGINAL XR HAND MINIMUM 3 VIEWS RIGHT CLINICAL STATEMENT: pain COMPARISON: None FINDINGS: 3 images of the RIGHT hand were obtained. There is cortical irregularity to the base of the distal phalanx of the 1st digit with well-corticated margins suggesting this is a developmental or r emote traumatic process. No associated soft tissue swelling is identified. Correlation for point tenderness is recommended. No additional fracture or dislocation is identified. There is no opaque foreign body. IMPRESSION:Probable remote change to the distal phalanx of the 1st digit. No acute process. Interpreted By: Selena Sena MD Preliminary Report By: Selena Sena MD Electronically Signed By: Selena Sena MD Dictated Date: 12/18/2017 3:37:38 PM Prelim Date: 12/18/2017 3:37:38 PM Sign Date: 12/18/2017 3:38:59 PM XR CHEST 2 VIEWS Observed: 12/18/2017 Status: F Source: [place] [employer] 3:25 PM [facility] REPOSITORY ORIGINAL XR CHEST 2 VIEWS CLINICAL STATEMENT: pain COMPARISON: 10/08/2013 FINDINGS:The cardiac contours are grossly stable. No vascular congestion or consolidation has developed. There is no pleural effusion or pneumothorax. The osseous structures are intact. IMPRESSION:No acute process Interpreted By: Selnea Sena MD Preliminary Report By: Selena Sena MD Electronically Signed By: Selena Sena MD Dictated Date: 12/18/2017 3:36:57 PM Prelim Date: 12/18/2017 3:36:57 PM Sign Date: 12/18/2017 3:37:26 PM PULMONARY VISIT REPORT Observed: 12/13/2017 Status: F Source: [place] 8:[address] [facility] REPOSITORY [facility] [address] [place] [address] OFFICE VISIT Date of Service: 12/13/17 MR#: [id number] Acct: [id number] Name: ALEXEI FOWLER Rep #: [id number] : 1965 Provider: Ifeoma Quispe D.O. Age/Sex: 52/F Location: [facility] Status: Signed Assessment AND Plan 1. COPD (chronic obstructive pulmonary disease) J44.9 Plan The patient did have evidence of a mild degree of COPD based upon pulmonary function testing completed 4 years ago. She has continued to smoke in the interim. We will plan to obtain repeat pulmonary function testing along with a 6 minute walk test prior to her follow-up office visit. She has been encouraged to continue to utilize her nebulizer treatments at home on an as-needed basis. Based upon the results of her PFTs, she may need to be started on some form of a intense inhaler regimen at her follow-up office visit. Orders Orders: 2. Hypersomnia G47.10 Plan The patient does endorse symptoms concerning for underlying sleep apnea. Therefore, we will plan to obtain a diagnostic polysomnogram and follow-up titration study, if clinically indicated. Orders have been placed accordingly. Orders Orders: 3. Tobacco dependency F17.200 Plan I personally spent 5 minutes discussing the deleterious effects of ongoing tobacco use with the patient, including modalities which could be utilized to achieve a smoke-free lifestyle. The patient remains pre-contemplative at this time. This issue will be readdressed at follow-up office visits. Plan Detail Follow Up 6 Weeks (CSM) HPI HPI Comments Details: The patient is a 52-year-old female presents to the clinic today in referral for evaluation of sleep problems. The patient is currently being followed by Dr. Richter of [facility]. The patient reports concerns for underlying obstructive sleep apnea. She reports that she is currently only sleeping approximately 4 hours per night. She reports the presence of nonrestorative sleep along with headaches in the morning. She confirms the presence of excessive daytime sleepiness and frequent daytime napping. The patient also notes falling asleep easily during routine activities, like watching TV. She has never undergone a polysomnogram previously. The patient is currently unemployed. She has lived in [place] her entire life. She is a current smoker of 1.5 packs per day and has been doing so since 1977. Pulmonary function testing completed in 2013 revealed evidence of an irreversible mild large airways obstructive ventilatory impairment. Patient reports the presence of a chronic, productive cough. She also reports the presence of intermittent chest tightness and wheezing. She confirms experiencing dizziness and lightheadedness with exertion. She does not currently utilize supplemental oxygen at her baseline. She does have access to a nebulizer in her home environment, which she uses on a as needed basis. She is not currently on any form of a maintenance inhaler regimen. She reports that her weight has been stable. She does have a dog as a pet in her home environment. The patient denies the presence of fevers, chills or night sweats. She denies chest pain or heart palpitations. Intake Vital Signs12/13/17 Height 5 ft 3 in 12/13/17 Weight: 142 lb Intake Visit Reasons: Sleep problems Allergies amoxicillin Allergy (Severe, Verified 10/26/17 07:16) Shortness of breath azithromycin Allergy (Severe, Verified 10/26/17 07:17) Shortness of breath clindamycin Allergy (Severe, Verified 10/26/17 07:20) Shortness of breath doxycycline Allergy (Severe, Verified 10/26/17 07:20) Shortness of breath erythromycin lactobionate [From Erythrocin] Allergy (Severe, Verified 10/26/17 07:20) Shortness of breath Penicillins Allergy (Severe, Verified 10/26/17 07:20) Shortness of breath Sulfa (Sulfonamide Antibiotics) Allergy (Severe, Verified 10/26/17 07:20) Shortness of breath sulfamethoxazole [From Bactrim] Allergy (Severe, Verified 10/26/17 07:20) Shortness of breath trimethoprim [From Bactrim] Allergy (Severe, Verified 10/26/17 07:20) Shortness of breath tramadol Allergy (Verified 10/23/17 16:51) Unknown codeine [From Tylenol-Codeine #3] Adverse Reaction (Verified 10/23/17 16:51) Nausea/Vom/Diarrhea terbutaline [From Brethine] Adverse Reaction (Verified 10/23/17 16:51) Other ANITHISTAMINES Allergy (Uncoded 10/23/17 16:51) Unknown Medications Atenolol [Tenormin (beta Doretha)] 25 mg PO BID 06/23/14 [History Confirmed 10/23/17] Diazepam [Valium] 5 mg PO BID 06/23/14 [History Confirmed 10/23/17] Lamotrigine [Lamictal] 200 mg PO BID 06/23/14 [History Confirmed 10/23/17] Rosuvastatin Calcium [Crestor] 40 mg PO QHS 06/23/14 [History Confirmed 10/23/17] Fluoxetine [Prozac] 40 mg PO DAILY 08/02/15 [History Confirmed 10/23/17] Ranitidine [Zantac] 150 mg PO BID PRN PRN 02/27/16 [History Confirmed 10/23/17] Fluoxetine [Prozac] 20 mg PO QHS 07/22/16 [History Confirmed 10/23/17] Albuterol Aerosols [Ventolin Aerosols] 2.5 mg INHALATION Q4H PRN #25 vial 10/16/16 [Rx Confirmed 10/23/17] Albuterol Inhaler [Ventolin Hfa] 1 - 2 puff INHALATION Q4H PRN PRN #1 inhaler 02/03/17 [Rx Confirmed 10/23/17] Benzonatate [Tessalon Perle] 100 mg PO Q8H PRN PRN #20 cap 09/23/17 [Rx Confirmed 10/23/17] Acetaminophen/Butalbital/Caffe [Fioricet] 1 tab PO Q4H PRN PRN 10/23/17 [History Confirmed 10/23/17] ProMETHAzine [Phenergan] 25 mg PO Q4H PRN PRN 10/23/17 [History Confirmed 10/23/17] levothyroxine 125 mcg tablet PO 11/08/17 [History Confirmed 11/08/17] nitrofurantoin macrocrystal 100 mg capsule 100 mg PO QHS 11/08/17 [History Confirmed 11/08/17] PFSH Medical History Urinary incontinence (Chronic) Back pain (Chronic) Neck pain (Chronic) GERD (gastroesophageal reflux disease) (Chronic) Temporomandibular joint (TMJ) pain (Chronic) COPD (chronic obstructive pulmonary disease) (Chronic) Mitral valve prolapse (Chronic) Bipolar disorder (Chronic) Hypokalemia (Chronic) Hypoglycemia (Chronic) Hypothyroidism (Chronic) History of diverticulitis (Acute) Surgical History History of cholecystectomy (Resolved) History of appendectomy (Resolved) History of dilatation and curettage (Resolved) History of left oophorectomy (Resolved) History of section (Resolved) Family History Mother Hypertension Pulmonary embolism Psychiatric care Father Lung cancer Grandmother Breast cancer Sister Asthma Seizures Psychiatric care Depression Son Depression Psychiatric care ADHD Daughter Depression Psychiatric care Bipolar 1 disorder Social History Smoking Status: Current every day smoker second hand exposure: Yes substance use type: does not use Review of Systems Const CONSTITUTIONAL: Positive fatigue; negative anorexia, body ache, chills, daytime sleepiness, fever(s), night sweats, oral thrush, stops breathing during sleep, weight loss, sleeping in chair, weight loss, weight gain, frequent colds, seasonal allergies, other, headache(s) or orthopnea EETM Ear Nose Throat Mouth: Positive hearing normal; negative hard of hearing, hoarseness, dry mouth in morning, change in vision, itchy eyes, eye pain, swallowing Difficulty, ear pain, nose bleed, headache(s), mouth pain, nasal congestion, nasal discharge, post nasal drip, sinus pain, sinus pressure, sore throat or other Cardio Cardiovascular: Negative chest pain, chest pain at rest, chest pain with activity, irregular heart rhythm, edema, shortness of breath when lying down, palpitations, murmur or other Resp Respiratory: Positive as per HPI, shortness of breath shortness of breath: Positive with activity, wheezing and cough cough: Positive productive color: Positive clear; negative pain with cough, chest congestion, chest tightness, pain on inspiration, inhalers, increase use of rescue inhalers, snoring, apnea or other Gastro Gastrointestional: Negative bloody stools, change in appetite, difficulty swallowing, reflux, hematemesis, melena stool, loose stool, constipation or other Genitourinary: Negative blood in urine, nocturia, pain with urination or other Musc Musculoskeletal: Negative body pain, back pain, neck pain or other Skin/Breast Skin/Breast: Negative dry skin, itching, rash, unusual bruising, breast lump or other Neuro Neurological: Negative restless legs, confusion, weakness or other Psych Psychocological: Positive abnormal sleep pattern; negative anxiety, thoughts of hurting self/others, hopelessness or other Lymph Lymphatic: Negative easy bleeding, easy bruising, swollen lymph nodes or other Exam Const Constitutional: Positive conversant, cooperative, in no acute respiratory distress, well developed, well nourished, poor hygiene, smells of smoke and thin Head Head: Positive normocephalic and atraumatic; negative cyanosis of lips/distal nose Eyes Eye: Positive clear conjunctiva; negative nystagmus or scleral abnormality Ears Ear: Positive hearing normal and external ears normal; negative hard of hearing Nose Nose: Positive external nose normal; negative epistaxis Mouth Mouth: Positive oral mucosae normal, posterior oropharynx is adequate and edentulous; negative no lesions or post nasal drip Mallampati Score: II: Mallampati Score Neck Neck: Positive normal visual inspection and trachea midline; negative lymphadenopathy Chest Wall Chest: Positive symmetric chest movement Normal AP diameter. Resp lung sounds: Positive diminished diminished: Positive global and normal expiratory time; negative wheezes, rhonchi or rales Cardio Cardiac: Positive regular rate, regular rhythm, S1 normal and S2 normal; negative rub, gallop or murmur GI GI: Positive normal bowel sounds Soft without distention Genitourinary: Positive deferred Musc Musculoskeletal: Positive steady gait Skin Pulmonary Skin Exam: Positive intact; negative lesion, ulcers, dermal atrophy or rash Pulses Pulse: Yes Pedal pulses present: Extremities Extremities: No clubbing, No cyanosis, No edema Neuro Neurologic: Yes conversant, Yes no focal neuro deficits, Yes cooperative Lymph Lymphatic: No lymphadenopathy Psych Appearance: Positive grossly normal Mental Status: Positive mental status grossly normal Mood: Positive congruent mood Affect: Positive normal affect Pulmonary Procedure Smoking Cessation Education: Yes 3-10 minutes Coding Level of Care Code Off vis,new,level 4 Diagnoses COPD (chronic obstructive pulmonary disease) J44.9 Hypersomnia G47.10 Tobacco dependency F17.200 12/13/17 0825 <Electronically signed by Ifeoma Quispe DO> Date Ifeoma Quispe DO Cosigner Signature: Date (if applicable) CC: Sofy Richter DO OT D/C OF NON Observed: 11/07/2017 Status: F Source: [facility] PT 4:[address] [facility] REPOSITORY [facility] Occupational Therapy Health[address] [place] [address] Fax REHABILITATION SERVICES DISCHARGE SUMMARY MR#: [id number] Acct: [id number] Name: ALEXEI FOWLER Ismael Rep #: [id number] : 1965 52 From: Rubi LEONARD/L, CHT Referring Dr.: Sofy Richter DO Status: REG RCR Eval Date: Discharge Date: HP - Discharge Summary - Patient Information ALEXEI FOWLER was seen in my office for initial evaluation on 08/28/17. The following Plan of Care was established for this patient: Initial Frequency: 1-2x /Week Initial Duration: 6 Weeks - Anticipated Interventions Anticipated Interventions: A/AAROM/PROM, Strengthening, Scar Care, Triggerpoint Release, Desensitization, Sensory Retraining, Modalities This patient was last seen in our office 08/28/17. Pertinent comments regarding their Occupational therapy will appear below: pt seen for inital OT visit only- pt did not return for any follow-up apts and has not scheduled. Pt D/C due to non attendance At this point I will be discontinuing this patient from occupational therapy. I would be happy to see this patient again in the future if found appropriate by the physician. Thank you! Rubi Gallego, OTR/L, CHT <Electronically signed by Rubi Gallego OTR/Vern, CHT> 11/07/17 1657 CC: Sofy Richter DO MK Signed ALLERGIES ALLERGIES DATE TYPE / CODE NAME / CODE REACTION SEVERITY SOURCE Drug erythromycin Shortness of SV Joe 8 Allergy/992397266 lactobionate/F0000 breath [facility] (SNOMED CT) 87996(RXNORM) Hospital Repository Drug Penicillins/Z39105 Shortness of SV Dana 8 Allergy/651495095 0476(RXNORM) breath [facility] (SNOM[facility] Hospital Repository Drug Sulfa (Sulfonamide Shortness of SV Joe 8 Allergy/963927829 Antibiotics)/F0010 breath [facility] (SNOMED CT) 53410(RXNORM) Hospital Repository Drug codeine/[id number] Nausea/Vom/Diar Unknown Dana 8 Allergy/611955605 (RXNORM) nitin [facility] (SNOMED [facility]) Hospital Repository Drug doxycycline/T76642 Shortness of SV Dana 8 Allergy/750141396 2748(RXNORM) breath [facility] (SNOMED CT) Hospital Repository Drug clindamycin/T33092 Shortness of SV Dana 8 Allergy/635811854 2794(RXNORM) breath [facility] ([facility] Hospital Repository Drug sulfamethoxazole/F Shortness of SV Dana 8 Allergy/011808514 100967520(RXNORM) breath [facility] ([facility]) Hospital Repository Drug trimethoprim/F0060 Shortness of SV Dana 8 Allergy/688649906 67712(RXNORM) breath [facility] ([facility]) Hospital Repository Drug metoprolol/O623148 HYPOTENSION Unknown Joe 8 Allergy/308548958 627(RXNORM) [facility] ([facility]) Hospital Repository Drug azithromycin/F0060 Shortness of SV Joe 8 Allergy/352094172 10183(RXNORM) breath [facility] ([facility]) Hospital Repository Drug amoxicillin/A73818 Shortness of SV Dana 8 Allergy/463068379 3675(RXNORM) breath [facility] ([facility]) Hospital Repository Drug tramadol/J02649091 Unknown Unknown Dana 8 Allergy/318525321 0(RXNORM) [facility] ([facility]) Hospital Repository Drug terbutaline/B70908 Other Unknown Joe 8 Allergy/892083388 4731(RXNORM) [facility] ([facility] Hospital Repository Miscellaneous ANITHISTAMINES Unknown Unknown Joe 8 Allergy/962639428 [facility] ([facility] Hospital Repository ENCOUNTERS ENCOUNTERS ADMIT/DISCHARGE ACCOUNT NUMBER ADMITTING ENCOUNTER LOCATION SOURCE CLASS 10/23/2018 [id number] Ambulatory [facility] ding:BFHLAB Repository 10/18/2018 [id number] Ambulatory [facility] ding:CR Repository 09/13/2018/10/07/20 [id number] Ambulatory [address] ding:CR Repository 08/24/2018/08/24/20 [id number] Emergency [address] ding:ED Repository 08/21/2018/09/06/20 [id number] Ambulatory [address] ding:CR Repository 08/08/2018 [id number] Ambulatory [facility] ding:CR Repository 07/16/2018 [id number] Ambulatory [facility] ding:SL Repository 07/10/2018/07/10/20 [id number] Ambulatory BMSBuilding: Joe 18 BMS.[facility] [place] 07/03/2018 [id number] Ambulatory BMSBuilding: [facility] Repository 07/03/2018 [id number] Ambulatory [facility] ding:PSN Repository 06/22/2018 [id number] Ambulatory BMSBuilding: [facility] Repository 06/21/2018/06/22/20 [id number] Ambulatory BMSBuilding: [address] Repository 06/21/2018 [id number] [place], [facility] 06/21/2018/06/22/20 [id number] [place], Ambulatory [address] ding:PCURoom Repository : AQC640Maq: 1 06/06/2018 [id number] Ambulatory BMSBuilding: [facility] Repository 06/05/2018 [id number] Ambulatory [facility] ding:PSN Repository 05/27/2018/05/27/20 [id number] Emergency [address] ding:ED Repository 05/24/2018/05/24/20 [id number] Ambulatory BMSBuilding: Dana 18 BMS.[facility] Repository 05/16/2018/05/16/20 [id number] Ambulatory BMSBuilding: Joe 18 BMS.[facility] Repository 05/15/2018 [id number] Ambulatory BMSBuilding: Dana BMS.[facility] Repository 05/15/2018 [id number] Ambulatory [facility] ding:RAD.FUT Repository URE 05/14/2018 [id number] Ambulatory [facility] ding:LAB.FUT Repository URE 05/09/2018/05/09/20 [id number] Emergency [address] ding:ED Repository 05/09/2018 [id number] Ambulatory BMSBuilding: Joe BMS.[facility] Repository 04/15/2018/04/21/20 [id number] Ambulatory BMSBuilding: Dana[address] Repository 04/15/2018 [id number] [facility], Ambulatory BMSBuilding: Dana Issac BMS.[facility] Repository 04/15/2018 [id number] [facility], Ambulatory BMSBuilding: Dana Issac BMS.[facility] Repository 04/15/2018 [id number] [facility], Ambulatory BMSBuilding: Joe Issac BMS.[facility] Repository 04/15/2018/04/21/20 [id number] [facility], Inpatient Dana [address] Encounter [facility] ding:PCURoom Repository : JBW870Dcz: 1 04/15/2018/04/21/20 [id number] Ambulatory BMSBuilding: Joe [address] [place] [address] Repository 04/15/2018 [id number] [facility], Ambulatory BMSBuilding: Dana Issac BMS.[facility] Repository 04/15/2018 [id number] [facility], Ambulatory BMSBuilding: Joe Issac BMS..[facility] Repository 04/15/2018 [id number] [facility], Ambulatory BMSBuilding: Dana Issac BMS.[facility] Repository 04/15/2018 [id number] [facility], Ambulatory BMSBuilding: Dana Issac BMS.[facility] Repository 04/15/2018/04/21/20 [id number] Ambulatory BMSBuilding: Joe[address] Repository 04/15/2018/04/15/20 [id number] Emergency BBuilding:JIMMY Monreal [facility] Repository 04/11/2018/04/14/20 [id number] DIPIKA PALMER., Inpatient BBuilding:MS Esteban Watts MD. THOMAS W Encounter URRoom: Health 0238Bed: [facility] Repository 03/03/2018/03/03/20 [id number] [facility] Repository 02/12/2018 [id number] Ambulatory [facility] ding:LAB.FUT Repository URE 01/23/2018 [id number] Ambulatory [facility] ding:SL Repository 01/16/2018 [id number] Ambulatory [facility] ding:PSN Repository 12/18/2017/12/19/19 [id number] Emergency BBuilding:ER Esteban 18 [facility] Repository 12/13/2017/12/14/19 [id number] Ambulatory BMSBuilding: Joe 18 [facility] Repository 08/28/2017/08/28/20 [id number] Ambulatory Joe [address] ding:OT Repository PAYERS PAYERS ENCOUNTER GUARANTOR PAYER SUBSCRIBER SOURCE 10/23/2018 ALEXEI Guevara Primary ALEXEI J Danasherice [id number] Insurance:PHILIPPE CARLB: [address] Number: [place]ository [place] [address]Uhz: [id number] Date:1450-88-71AE BOX () [address] [place] [address]NT: 10/23/2018 Secondary NOT GIVENUNK Joe Insurance:SELF PAY [facility] Number: Effective Repository Date:2018-10-23 10/18/2018 ALEXEI J Primary ALEXEI J Joe [id number] Insurance:PHILIPPE CARLB: [address] Number: [place]ository [place] [address]Hgl: [id number] Date:6312-74-61ZI BOX () [address], [place] [address]ND: 10/18/2018 Secondary NOT GIVENUNK Joe Insurance:SELF PAY [facility] Number: Effective Repository Date:2018-10-08 09/13/2018 ALEXEI J Primary ALEXEI J Joe [id number] Insurance:PHILIPPE CARLB: [address] Number: [place]ository [place] [address]Gpg: [id number] Date:4814-58-97GQ BOX (HP) [facility] [address]SH: 09/13/2018 Secondary NOT GIVENUNK Joe Insurance:SELF PAY [facility] Number: Effective Repository Date:2018-09-07 08/24/2018 ALEXEI J Primary ALEXEI J Joe [id number] Insurance:PHILIPPE CARLB: [address] Number: [place]ository [place] [id number]: [id number] Date:9796-57-61OZ BOX () [address] [place] [address]XN: 08/24/2018 Secondary NOT GIVENUNK Joe Insurance:SELF PAY [facility] Number: Effective Repository Date:2018-08-24 08/21/2018 ALEXEI J Primary ALEXEI J Joe [id number] Insurance:PHILIPPE CARLB: [address] Number: Repository [place] [address]Cyl: [id number] Date:6981-38-46IH BOX () [address] [place] [address]AE: 08/21/2018 Secondary NOT GIVENUNK Dana Insurance:SELF PAY [facility] Number: Effective Repository Date:2018-08-08 08/08/2018 ALEXEI J Primary ALEXEI J Dana [id number] Insurance:PHILIPPE CARLB: [address] Number: Repository [place] [address]Nrp: [id number] Date:4467-43-76IX BOX (HP) [address], [place] [address]OZ: 08/08/2018 Secondary NOT GIVENUNK Joe Insurance:SELF PAY [facility] Number: Effective Repository Date:2018-08-02 07/16/2018 ALEXEI J Primary ALEXEI J Dana [id number] Insurance:PHILIPPE CARLB: [facility] [id number] Number: Repository [place] [address]Oqs: [id number] Date:3277-08-36JK BOX () [address], [place] [address]PI: 07/16/2018 Secondary NOT GIVENUNK Dana Insurance:SELF PAY [facility] Number: Effective Repository Date:2018-07-10 07/10/2018 ALEXEI J Primary ALEXEI J Dana [id number] Insurance:PHILIPPE CARLB: [facility] [id number] Number: Repository [place] [address]Eqc: [id number] Date:3210-17-51MF BOX () [address] [place] [address] [place] [address]JP: 07/10/2018 Secondary NOT GIVENUNK Joe Insurance:SELF PAY [facility] Number: Effective Repository Date:2018-07-09 07/03/2018 ALEXEI J Primary ALEXEI J Joe [id number] Insurance:PHILIPPE CARLB: [address] Number: [place]ository [place] [address]Qei: [id number] Date:6632-41-65JO BOX () [address] [place] [address]MP: 07/03/2018 Secondary NOT GIVENUNK Dana Insurance:SELF PAY [facility] Number: Effective Repository Date:2018-07-03 07/03/2018 ALEXEI J Primary ALEXEI J Dana [id number] Insurance:QIANE MALCOLMDOB: [address] Number: Repository [place] [address]Hyk: [id number] Date:6819-04-18IS BOX (HP) [address]ArisKAROL [place] [address]EU: 07/03/2018 Secondary NOT GIVENUNK Joe Insurance:SELF PAY [facility] Number: Effective Repository Date:2018-03-27 06/22/2018 ALEXEI J Primary ALEXEI J Dana [id number] Insurance:PHILIPPE FOWLERDOB: [address] Number: Repository [place] [address]Qem: [id number] Date:8260-68-25KK BOX (HP) [address] [facility] MED[facility] CENTERKAROL SAHA [address]MF: 06/22/2018 Secondary NOT GIVENUNK Joe Insurance:SELF PAY [facility] Number: Effective Repository Date:2018-06-22 06/21/2018 ALEXEI J Primary ALEXEI J Dana [id number] Insurance:PHILIPPE FOWLERDOB: [address] Number: [place]ository [place] [address]Opt: [id number] Date:6049-39-56KB BOX (HP) [address]KAROL [place] [address]ZX: 06/21/2018 Secondary NOT GIVENUNK Dana Insurance:SELF PAY [facility] Number: Effective Repository Date:2018-06-21 06/21/2018 ALEXEI J Primary ALEXEI J Dana [id number] Insurance:PHILIPPE FOWLERDOB: [address] Number: Repository [place] [address]Sdq: [id number] Date:7971-06-59WI BOX (HP) [address]KAROL [place] [address]FJ: 06/21/2018 Secondary NOT GIVENUNK Joe Insurance:SELF PAY [facility] Number: Effective Repository Date:2018-06-21 06/21/2018 ALEXEI J Primary ALEXEI J Dana [id number] Insurance:PHILIPPE FOWLERDOB: [facility] [id number] Number: [place]ository [place] [address]Pmk: [id number] Date:8030-16-18ME BOX (HP) 6[address] [place] [address]EJ: 06/21/2018 Secondary NOT GIVENUNK Dana Insurance:SELF PAY [facility] Number: Effective Repository Date:2018-06-21 06/06/2018 ALEXEI J Primary ALEXEI J Dana [id number] Insurance:BUCKEYE MALCOLMDOB: [address] Number: [place]ository [place] [address]Lrn: [id number] Date:2016-92-27KT BOX () 6[address] [place] [address]UY: 06/06/2018 Secondary NOT GIVENUNK Joe Insurance:SELF PAY [facility] Number: Effective Repository Date:2018-06-06 06/05/2018 ALEXEI J Primary ALEXEI J Joe [id number] Insurance:PHILIPPE FOWLERDOB: [address] Number: [place] [address]Yhc: [id number] Date:4332-90-29DB BOX () [address] [place] [address]KZ: 06/05/2018 Secondary NOT GIVENUNK Dana Insurance:SELF PAY [facility] Number: Effective Repository Date:2018-05-16 05/27/2018 ALEXEI J Primary ALEXEI J Joe [id number] Insurance:MOHITEYE MALCOLMDOB: [address] Number: Repository [place] [address]Tfh: [id number] Date:1033-48-74PZ BOX (HP) 497JOEKAROL SAHA [address]FO: 05/27/2018 Secondary NOT GIVENUNK Joe Insurance:SELF PAY [facility] Number: Effective Repository Date:2018-05-27 05/24/2018 ALEXEI J Primary ALEXEI J Joe [id number] Insurance:BUCKEYE DENISELANDDOB: [address] Number: Repository [place] [address]Ngw: [id number] Date:3056-67-82YE BOX (HP) [facility] [address]VL: 05/24/2018 Secondary NOT GIVENUNK Joe Insurance:SELF PAY [facility] Number: Effective Repository Date:2018-05-24 05/16/2018 ALEXEI J Primary ALEXEI J Joe [id number] Insurance:BUCKEYE DENISELANDDOB: [address] Number: Repository [place] [address]Ejm: [id number] Date:9911-77-91FS BOX (HP) [address]KAROL [place] [address]JD: 05/16/2018 Secondary NOT GIVENUNK Dana Insurance:SELF PAY [facility] Number: Effective Repository Date:2018-05-09 05/15/2018 ALEXEI J Primary ALEXEI J Joe [id number] Insurance:BUCKEYE DENISELANDDOB: [address] Number: Repository [place] [address]Zid: [id number] Date:3479-76-27RH BOX (HP) [address]KAROL [place] [address]MW: 05/15/2018 Secondary NOT GIVENUNK Joe Insurance:SELF [facility]Y [facility] Number: Effective Repository Date:2018-05-15 05/15/2018 ALEXEI J Primary ALEXEI J Dana [id number] Insurance:PHILIPPE CARLB: [address] Number: [place]ository [place] [address]Xkz: [id number] Date:9517-52-64PZ BOX () [address]ENTERMAR[facility] AKAROL [address]JW: 05/15/2018 Secondary NOT GIVENUNK Joe Insurance:SELF PAY [facility] Number: Effective Repository Date:2018-05-15 05/14/2018 ALEXEI J Primary ALEXEI J Dana [id number] Insurance:PHILIPPE CARLB: [address] Number: Repository [place] [address]Tja: [id number] Date:0561-72-58JZ BOX (HP) 6200[facility]BASTIANKAR[facility] [address]MN: 05/14/2018 Secondary NOT GIVENUNK Dana Insurance:SELF PAY [facility] Number: Effective Repository Date:2018-05-14 05/09/2018 ALEXEI J Primary ALEXEI J Dana [id number] Insurance:PHILIPPE CARLB: [address] Number: Repository [place] [address]Zes: [id number] Date:6088-48-48VJ BOX () [address] [address] [place], [place] [address]AW: 05/09/2018 Secondary NOT GIVENUNK Joe Insurance:SELF PAY [facility] Number: Effective Repository Date:2018-05-09 05/09/2018 ALEXEI J Primary ALEXEI J Dana [id number] Insurance:PHILIPPE CARLB: [address] Number: Repository [place] [address]Cxn: [id number] Date:3568-58-29FF BOX (HP) HIMANSHU KAROL [address]ZW: 05/09/2018 Secondary NOT GIVENUNK Joe Insurance:SELF PAY [facility] Number: Effective Repository Date:2018-05-02 04/15/2018 ALEXEI J Primary ALEXEI J Dana [id number] Insurance:BUCKEYE DENISELANDDOB: [address] Number: Repository [place] [address]Gyl: [id number] Date:2652-32-29DK BOX () HIMANSHU KAROL [address]BP: 04/15/2018 Secondary NOT GIVENUNK Joe Insurance:SELF PAY [facility] Number: Effective Repository Date:2018-04-15 04/15/2018 ALEXEI J Primary ALEXEI J Dana [id number] Insurance:BUCKEYE DENISELANDDOB: [address] Number: Repository [place] [address]Aht: [id number] Date:7557-14-61ZE BOX (HP) 620KYLEKAROL [place] [address]XF: 04/15/2018 Secondary NOT GIVENUNK Joe Insurance:SELF PAY [facility] Number: Effective Repository Date:2018-04-15 04/15/2018 ALEXEI J Primary ALEXEI J Dana [id number] Insurance:BUCKEYE DENISELANDDOB: [address] Number: [place]ository [place] [address]Nan: [id number] Date:9397-07-56ON BOX (HP) 620ROYERKAROL [address]AP: 04/15/2018 Secondary NOT GIVENUNK Dana Insurance:SELF PAY [facility] Number: Effective Repository Date:2018-04-15 04/15/2018 ALEXEI J Primary ALEXEI Guevara Joe [id number] Insurance:PHILIPPE CARLB: [address] Number: Repository [place] [address]Clm: [id number] Date:3956-86-45FV BOX () [address] [place], [place] [address]KAROL [address]SW: 04/15/2018 Secondary NOT GIVENUNK Dana Insurance:SELF PAY [facility] Number: Effective Repository Date:2018-04-15 04/15/2018 ALEXEI J Primary ALEXEI J Dana [id number] Insurance:PHILIPPE FOWLERDOB: [address] Number: Repository [place] [address]Tsq: [id number] Date:7254-45-52RG BOX () [address] [place] [address]LX: 04/15/2018 Secondary NOT GIVENUNK Joe Insurance:SELF PAY [facility] Number: Effective Repository Date:2018-04-15 04/15/2018 ALEXEI J Primary ALEXEI Guevara Dana [id number] Insurance:PHILIPPE FOWLERDOB: [address] Number: Repository [place] [address]Fxx: [id number] Date:7024-15-91RE BOX () [address] [place] [address]UO: 04/15/2018 Secondary NOT GIVENUNK Dana Insurance:SELF PAY [facility] Number: Effective Repository Date:2018-04-15 04/15/2018 ALEXEI Guevara Primary ALEXEI Guevara Joe [id number] Insurance:PHILIPPE FOWLERDOB: [address] Number: Repository [place] [address]Zgz: [id number] Date:2333-47-81WD BOX (HP) 381ArisKAROL [place] [address]EY: 04/15/2018 Secondary NOT GIVENUNK Joe Insurance:SELF PAY [facility] Number: Effective Repository Date:2018-04-15 04/15/2018 ALEXEI J Primary ALEXEI J Joe [id number] Insurance:BUCKEYE DENISELANDDOB: [address] Number: Repository [place] [address]Qea: [id number] Date:8415-80-39IP BOX () 620ArisBOURNEWOOD HOSPITALKAROL CORTES [address]LS: 04/15/2018 Secondary NOT GIVENUNK Joe Insurance:SELF PAY [facility] Number: Effective Repository Date:2018-04-15 04/15/2018 ALEXEI J Primary ALEXEI J Joe [id number] Insurance:BUCKEYE DENISELANDDOB: [address] Number: Repository [place] [address]Aiq: [id number] Date:8961-40-37EV BOX () 620ArisKAROL DAVIDSON [address]OO: 04/15/2018 Secondary NOT GIVENUNK Joe Insurance:SELF PAY [facility] Number: Effective Repository Date:2018-04-15 04/15/2018 ALEXEI J Primary ALEXEI J Dana [id number] Insurance:BUCKEYE DENISELANDDOB: [address] Number: [place]ository [place] [address]Vxe: [id number] Date:9348-71-27FU BOX () 620KAROL [place] [address]AZ: 04/15/2018 Secondary NOT GIVENUNK Joe Insurance:SELF PAY [facility] Number: Effective Repository Date:2018-04-15 04/15/2018 ALEXEI J Primary ALEXEI J Dana [id number] [facility] CROSLANDDOB: [facility] [id number] Number: Repository [place] [address]Zbx: [id number] Date:3681-10-01DW BOX (HP) [place], [place] [address]SL: 04/15/2018 Secondary NOT GIVENUNK Dana Insurance:SELF PAY [facility] Number: Effective Repository Date:2018-04-15 04/15/2018 [facility] Primary [facility]OB: Insurance:[place] [facility]MA[facility] ARCADIADOB: [facility] [id number] [place] [address] [id number] Repository EUCLID Number: [facility], [id number] [facility]ENTERREESEMERCY [facility] DEFI[facility] [place]ITAL[place]AND[place], [place] [address]Gpf: Date:2018-04-15 - [place] [address]Voy: [id number] (HP) Name:XPO Box (HP)Tel: [phone]) 6200[facility], [place], [place] 000[address] (WP) [phone]: 04/11/2018 [facility] DENISEMAY[facility]– ARCADIADOB: [facility] [id number] Repository EUCLID Number: [place] ANGLIN, [id number] [facility]ALTH CENTEROSWALDOLVM[place]ICK, [place] [address]Lnl: Date:2018-04-11 [place] [address]Mjm: [id number] (HP) Name:XPO Box (HP)Tel: [phone]) [address], [place] 000[address] (WP) [address]MW: 03/03/2018 [facility] Primary [facility] [id number] Insurance:BUCKEYE CROSLANDDOB: [address] Number: [place]ository [place] [address]Bii: [id number] Date:8773-58-78ZR BOX (HP) [address] CENTERKAROL SAHA [address]WK: 03/03/2018 Secondary NOT GIVENUNK Dana Insurance:SELF PAY [facility] Number: Effective Repository Date:2018-03-03 02/12/2018 ALEXEI J Primary ALEXEI J Dana [id number] Insurance:PHILIPPE CARLB: [address] Number: Repository [place] [address]Qbk: [id number] Date:4059-06-05RP BOX (HP) [address] [place], [place] [address]KAROL CORTES [address]BG: 02/12/2018 Secondary NOT GIVENUNK Dana Insurance:SELF PAY [facility] Number: Effective Repository Date:2017-11-09 01/23/2018 ALEXEI J Primary ALEXEI J Joe [id number] Insurance:PHILIPPE CARLB: [address] Number: [place]ository [place] [address]Ilv: [id number] Date:4156-05-35AX BOX (HP) 620ArisBOURNEWOOD HOSPITALKAROL CORTES [address]GA: 01/23/2018 Secondary NOT GIVENUNK Dana Insurance:SELF PAY [facility] Number: Effective Repository Date:2017-12-13 01/16/2018 ALEXEI J Primary ALEXEI J Joe [id number] Insurance:PHILIPPE CARLB: [address] Number: [place]ository [place] [address]Tyo: [id number] Date:8000-01-76ZZ BOX (HP) 108ArisBOURNEWOOD HOSPITALKAROL CORTES [address]JY: 01/16/2018 Secondary NOT GIVENUNK Joe Insurance:SELF PAY [facility] Number: Effective Repository Date:2017-12-13 12/18/2017 [facility]:PHILIPPE CARLB: [facility] [id number] Repository EUCLID Number: [facility], [id number] [place], [place] [address]Jxq: Date:2017-12-18 [place] [address]Lsy: [id number] (HP) Name:XPO Box (HP)Tel: [phone]) 672ArsiHonorhealth Scottsdale Thompson Peak Medical CenterKAROL saha 000[address] (HD) [address]OM: 12/13/2017 [facility] Primary ALEXEI [place] [address] Insurance:PHILIPPE WALKERMAYO CLINIC HEALTH SYSTEM– ARCADIAB: [facility] [id number] VA Health Care System Number: [place]ository [place] [address]Mqi: [id number] Date:8397-40-66LV BOX (HP) 620KAROL [place] [address]XA: 12/13/2017 Secondary NOT GIVENUNK Dana Insurance:SELF PAY [facility] Number: Effective Repository Date:2017-11-14 08/28/2017 [facility] Primary [place] [address] Insurance:PHILIPPE Walkerthedacare medical center - wild roseB: [address]04[address]12[facility] Number: Repository [place] [address]Oee: [id number] Date:6348-76-22DW BOX () 509ArisKAROL DAVIDSON [address]PY: 08/28/2017 Secondary NOT GIVENUNK Dana Insurance:SELF PAY [facility] Number: Effective Repository Date:2017-08-22
== END ==
PROVIDERS: Family Provider Family Medicine; PCP Family Medicine; Visit Provider Family Medicine
DX: E03.9 Hypothyroidism, unspecified (principal); R00.0 Tachycardia, unspecified; E16.2 Hypoglycemia, unspecified; E87.6 Hypokalemia; R53.83 Other fatigue; E53.8 Deficiency of other specified B group vitamins
CPT/HCPCS: 36415; 80053; 82607; 83540; 84439; 84443; 84481; 85025

== ENCOUNTER → 2018-12-12 15:49 | Outpatient (CLI) | payer MEDICAID, SELFPAY ==
[2018-12-12 15:35] VITALS: BMI 24.6
--- NOTE | 2018-12-12 15:51 | RAD_ITS ---
STUDY: X-RAY - LEFT SHOULDER REASON FOR EXAM: Female, 53 years old. Fall TECHNIQUE: 4 view(s) of the shoulder. COMPARISON: None. FINDINGS: There is no evidence of fracture or dislocation. There are no significant degenerative changes. There are no radiodense foreign bodies. RAD/Shoulder min 2 Views IMPRESSION: No fracture or dislocation. Electronically Signed: Terrence Lemon, at 16:25 EST Tel , Service support ,
--- NOTE | 2018-12-12 15:51 | RAD_ITS ---
STUDY: X-RAY - LEFT ANKLE REASON FOR EXAM: Female, 53 years old. Fall TECHNIQUE: 3 view(s) of the ankle. COMPARISON: None. FINDINGS: There is no evidence of fracture or dislocation. There are no significant degenerative changes. There are no radiodense foreign bodies. RAD/Ankle min 3 Views IMPRESSION: No fracture or dislocation. Electronically Signed: Terrence Lemon, at 16:24 EST Tel , Service support ,
--- NOTE | 2018-12-12 15:52 | RAD_ITS ---
STUDY: X-RAY - THORACIC SPINE REASON FOR EXAM: Female, 53 years old. Pain. Fall. TECHNIQUE: 2 view(s) of the thoracic spine were obtained. COMPARISON: None. FINDINGS: There is no evidence of fracture or dislocation in the thoracic spine. The vertebral body heights and disc spaces are well-maintained. There are no significant degenerative changes. RAD/Thoracic Spine 3 Views IMPRESSION: No fracture or dislocation in the thoracic spine. Electronically Signed: Terrence Lemon, at 16:26 EST Tel , Service support ,
== END ==
PROVIDERS: Family Provider Family Medicine; PCP Family Medicine; Referring Provider Physician Assistant; Visit Provider Physician Assistant
DX: S49.92XA Unspecified injury of left shoulder and upper arm, initial encounter (principal); M54.9 Dorsalgia, unspecified; S99.912A Unspecified injury of left ankle, initial encounter
CPT/HCPCS: 72072; 73030; 73610

== ENCOUNTER 2019-01-07 00:31 | Emergency (ER) | payer MEDICAID, SELFPAY ==
[2018-12-12 15:35] VITALS: BMI 24.6
[2019-01-07 00:31] VITALS: BP 105/62; PULSE 72; RESP 16; O2SAT 99
[2019-01-07 00:32] VITALS: BP 105/62; PULSE 969; RESP 16; TEMP 36.4; O2SAT 99; BMI 27.6
--- NOTE | 2019-01-07 00:32 | ED.RN ---
CALLED FOR EKG PER RN REQUEST, PULLED OLD EKGS FOR
[2019-01-07 00:43] VITALS: O2SAT 99
--- NOTE | 2019-01-07 00:43 | EKG12_ITS ---
Test Reason : CP Blood Pressure : / mmHG Vent. Rate : 068 BPM Atrial Rate : 068 BPM P-R Int : 104 ms QRS Dur : 072 ms QT Int : 412 ms P-R-T Axes : 066 061 074 degrees QTc Int : 438 ms Sinus rhythm with short SD Otherwise normal ECG Confirmed by ANDREA PALMER, NICOLETTE ([id number]), offline editor KELLY KIMBALL ([id number]) on 01/10/2019 11:35:06 AM Referred By: DB Confirmed By:NICOLETTE MENDEZ MD
--- NOTE | 2019-01-07 00:52 | ED.DCSUM_ITS ---
History of Present Illness Chief Complaint: Chest Pain Narrative: Stated approximately an hour and a half ago she developed substernal chest discomfort. She describes it as a tightness. It lasted 10 minutes and went away. Currently she has no pain. She did take aspirin in the form of Excedrin. She has had a remote non-STEMI. She has a circumflex moderate stenosis that was seen on her last heart cath. She did have a negative stress test last June. She is followed by Dr. Merino. Nothing made it better or worse. She does have a history of mitral valve prolapse as well. She denies any other symptoms or associated symptoms. - Past Medical History (1) Bronchitis Status: Acute (2) Chest pain Status: Acute (3) Contusion of back wall of thorax Status: Acute (4) Contusion of left shoulder Status: Acute (5) Left ankle sprain Status: Acute (6) Left shoulder strain Status: Acute (7) Respiratory failure, acute Status: Acute (8) Acute diastolic (congestive) heart failure Status: Chronic (9) Acute on chronic respiratory failure with hypoxia and hypercapnia Status: Chronic (10) Asthma-COPD overlap syndrome Status: Chronic (11) Atherosclerosis of coronary artery of [place] heart without angina pectoris Status: Chronic Comment: Moderate coronary artery disease involving the mid circumflex artery and distal circumflex artery with preserved left ventricular ejection fraction. 04/18/18 (12) COPD (chronic obstructive pulmonary disease) Status: Chronic (13) Nonrheumatic mitral valve prolapse Status: Chronic (14) Paroxysmal supraventricular tachycardia Status: Chronic Past Medical History - Allergies and Home Meds Allergies/Adverse Reactions: Allergies amoxicillin Allergy (Severe, Verified 12/12/18 15:26) Shortness of breath AND HIVES azithromycin Allergy (Severe, Verified 12/12/18 15:26) Shortness of breath AND HIVES clindamycin Allergy (Severe, Verified 12/12/18 15:26) Shortness of breath AND HIVES doxycycline Allergy (Severe, Verified 12/12/18 15:26) Shortness of breath AND HIVES erythromycin lactobionate [From Erythrocin] Allergy (Severe, Verified 12/12/18 15:26) Shortness of breath AND HIVES Penicillins Allergy (Severe, Verified 12/12/18 15:26) Shortness of breath AND HIVES Sulfa (Sulfonamide Antibiotics) Allergy (Severe, Verified 12/12/18 15:26) Shortness of breath AND HIVES sulfamethoxazole [From Bactrim] Allergy (Severe, Verified 12/12/18 15:26) Shortness of breath AND HIVES trimethoprim [From Bactrim] Allergy (Severe, Verified 12/12/18 15:26) Shortness of breath AND HIVES tramadol Allergy (Verified 12/12/18 15:26) Unknown codeine [From Tylenol-Codeine #3] Adverse Reaction (Verified 12/12/18 15:26) Nausea/Vom/Diarrhea metoprolol Adverse Reaction (Verified 12/12/18 15:26) hypotension terbutaline [From Brethine] Adverse Reaction (Verified 12/12/18 15:26) Other ANITHISTAMINES Allergy (Uncoded 12/12/18 15:26) Unknown Primary Care Physician: Sofy Richter DO [Primary Care Provider] - Prior records reviewed: Yes Surgical History: - - Emergency 1993 Left ovary follapian tube and ovary removed 1998 Throat biopsy: benign 1999 Hydrothermal ablation and D&C 2004 Emergency appendectomy 2008 Cholecystectomy lap 2002 Lives: Spouse/ Significant Other Smoking Status: Former smoker Alcohol: None Drugs: None - Family History Paternal Family History: Family History (Last Reviewed 07/10/18 @ 10:56 by Sarah Pat NP-C) Mother Hypertension Pulmonary embolism Psychiatric care Father Lung cancer Grandmother Breast cancer Sister Asthma Seizures Psychiatric care Depression Son Depression Psychiatric care ADHD Daughter Depression Psychiatric care Bipolar 1 disorder Family History: Reports: Hypertension Review of Systems General: Denies: Chills, Fever, Sweats Eyes: Denies: Visual changes - bilaterally, Diplopia ENT: Denies: Rhinorrhea, Sore throat Cardiovascular: Reports: Chest pain. Denies: Palpitations Respiratory: Denies: Dyspnea, Cough, Dyspnea on exertion Gastrointestinal: Denies: Abdominal pain, Nausea, Vomiting, Diarrhea, Melena, Hematochezia Genitourinary: Denies: Dysuria, Hematuria, Frequency Musculoskeletal: Denies: Back pain, Extremity Pain Skin: Denies: Rash, Wounds Neurological: Denies: Headache, Weakness, Numbness Physical Exam Vital Signs/Narrative: Vital Signs Temp Pulse Resp BP Pulse Ox 01/07/19 00:43 99 01/07/19 00:32 97.6 F L 969 H 16 105/62 99 01/07/19 00:31 72 16 105/62 99 General: Well nourished, Well developed, No Acute Distress Head: Normocephalic, Atraumatic Eyes: Perrl, EOMI ENT: Moist mucous membranes, No rhinorrhea Neck: Supple, Nontender Cardiovascular: Regular rate, Regular rhythm, No murmurs Respiratory: No distress, CTA bilaterally, Chest nontender - Reducible chest pain left parasternal with palpation pinpoint Abdomen: Soft, Nontender, Nondistended, Normal bowel sounds Back: Nontender, Normal Inspection Extremities: Nontender, No edema Skin: Normal color, No rash Neurological: Alert, Oriented x3, Cranial nerves II-XII grossly intact, Normal Strength, Normal Sensation Psychological: Normal affect, Normal Mood Diagnostic/Tx/Re-eval - EKG Initial EKG Interpretation: Sinus Rhythm - OH at 104. Unchanged from previous. No acute STEMI or ischemic findings. EKG unchanged from prior Prior: Unchanged - Medical Decision Making Patient resting comfortably here. Lab work and chest x-ray obtained. She received aspirin and Excedrin today. Chest x-ray shows nothing acute. Lab work shows no acute abnormalities. Initial troponin negative. I discussed admission with the patient for repeat stress test. She has had a -1 in June. She also had a heart cath last per patient. This did not require stents. She has moderate coronary artery disease. She would like to be discharged to follow-up. I did convince her to do a second troponin which was negative as well. This was a 2-hour troponin. Have a low suspicion for acute coronary syndrome. This is very reproducible. I feel she can follow-up as an outpatient. ED Disposition - Plan for ED Patient: Disposition: [facility] Diagnosis: Chest pain at rest Instructions: ED Chest Pain NonCardiac Referrals: Sofy Richter DO [Primary Care Provider] -
[2019-01-07 00:53] LABS: Absolute Lymphocyte Count 3.52 X10^3/ul (0.83-4.51); Basophil# 0.03 X10^3/uL; Basophil% 0.5 % (0-1); Eosinophil# 0.14 X10^3/uL; Eosinophils% 2.4 % (0-5); Hemoglobin 12.2 g/dl (12.0-15.0); Lymphocyte # 3.52 X10^3/ul (4.0); Lymphocyte % 59.4 % (19-41); Mean Corpuscular Hgb 30.7 pg (27.0-32.0); Mean Corpuscular Volume 93.2 fL (81-99); Mean Platelet Vol. 10.7 fl (6.2-12.0); Monocyte# 0.28 X10^3/uL; Monocyte% 4.7 % (0-10); Neutrophil # 1.95 X10^3/uL (2.7-7.7); Neutrophil % 32.8 % (47-70); Platelet Count 191 K/mm3 (150-450); RBC Distribution Width SD 40.7 fl (35.1-43.9); Red Blood Count 3.97 M/mm3 (4.2-5.4); White Blood Count 5.9 K/mm3 (4.4-11.0)
[2019-01-07 00:57] LABS: POSITIVE COUNT NO; POSITIVE DIFFERENTIAL NO; POSITIVE MORPHOLOGY NO
[2019-01-07 01:08] LABS: Anion Gap 3 (5-15); BUN 23 mg/dL (7-18); BUN/Creat Ratio 27.6 RATIO (10-20); Calcium,Total 8.2 mg/dL (8.5-10.1); Chloride 107 mmol/L (98-107); Creatinine, Serum 0.83 mg/dL (0.55-1.02); EST Glomerular Filtration Rate 76 mL/min (>60); Est Glom Filt Rate - Afr Amer 92 mL/min (>60); Estimated Creatinine Clearance 65.59 ml/min; Glucose 84 mg/dL (74-106); Potassium 3.5 mmol/L (3.5-5.1); Sodium Level 141 mmol/L (136-145)
--- NOTE | 2019-01-07 01:20 | RAD_ITS ---
HISTORY: chest pain, Hx COPD, previous smoker, heart attack EXAM:XR Chest 2 Views COMPARISON: 08/24/2018 FINDINGS: EKG leads in place. Normal heart size. Mild hyperinflation. No vascular congestion, pleural effusion, or acute pulmonary infiltration. No pneumothorax. The bony thorax appears intact. RAD/Chest PA and Lateral IMPRESSION: 1. No acute cardiopulmonary disease. No significant interval change. 2. Mild hyperinflation. at 0213 Reported and signed by: Yaakov Andrade MD Electronically Signed: Yaakov Andrade, at 2:11 EDT Tel , Service support ,
[2019-01-07 01:45] VITALS: BP 95/58; PULSE 61; RESP 14; O2SAT 98
[2019-01-07 02:52] VITALS: BP 98/47; PULSE 61; RESP 16; O2SAT 97
[2019-01-07 04:02] VITALS: BP 90/64; PULSE 91; RESP 12; O2SAT 97
== END 2019-01-07 04:03 | disposition home or self-care (01) ==
PROVIDERS: Emergency Provider Emergency Medicine; Family Provider Family Medicine; PCP Family Medicine
DX: R07.9 Chest pain, unspecified (principal); Z90.49 Acquired absence of other specified parts of digestive tract; J44.9 Chronic obstructive pulmonary disease, unspecified; I34.1 Nonrheumatic mitral (valve) prolapse; I25.10 Atherosclerotic heart disease of native coronary artery without angina pectoris; J96.21 Acute and chronic respiratory failure with hypoxia; I50.31 Acute diastolic (congestive) heart failure
CPT/HCPCS: 71046; 80048; 84484; 85025; 93005; 99284; A4216

== ENCOUNTER 2019-01-24 13:10 | Emergency (ER) | payer MEDICAID, SELFPAY ==
[2019-01-10 09:47] VITALS: BMI 25.1
[2019-01-24 13:13] VITALS: BP 112/64; PULSE 73; RESP 18; TEMP 37; O2SAT 97; BMI 26.5
[2019-01-24 13:29] VITALS: O2SAT 96
[2019-01-24] MEDS: Ipratropium/Albuterol Sulfate 3 ML AMPUL.NEB INHALATION (13:39)
[2019-01-24] MEDS: Albuterol 2.5 MG/3 ML VIAL.NEB. INHALATION (13:39)
--- NOTE | 2019-01-24 13:40 | RAD_ITS ---
STUDY: X-RAY CHEST REASON FOR EXAM: Female, 54 years old. Productive cough. Wheezing. TECHNIQUE: PA and lateral views of the chest. COMPARISON: Comparison is made with prior study dated January 08, 2016. FINDINGS: The lungs are clear and expanded. There is no demonstrated pleural abnormality. Normal size heart. Normal mediastinum and ashli. Normal visualized pulmonary arteries. Normal visualized aortic arch and descending thoracic aorta. Normal visualized thoracic spine. Normal visualized ribs, clavicles, and shoulders. There is no demonstrated abnormality of the visualized soft tissue structures of the upper abdomen. RAD/Chest PA and Lateral IMPRESSION: Normal x-ray examination of the chest. Electronically Signed: Crow Gibson, at 14:18 EDT , Service support ,
--- NOTE | 2019-01-24 14:18 | ED.VIS.GEN ---
History of Present Illness Chief Complaint: Cough Informant: Patient Onset: Yesterday Context: Sudden Onset Timing: Continuous Quality: Wheezing and productive cough Location: Respiratory Current Severity: Mild Maximum Severity: Moderate Worsened by: Cough and activity Relieved by: Nothing Associated Symptoms: No constitutional symptoms and no hemoptysis Narrative: Patient is a 54-year-old woman who is a former smoker and presents with productive cough of green colored sputum that started yesterday. She denies fever, chills night sweats. She does report mild nasal congestion. Denies earache, sore throat postnasal drainage. She denies chest pain. She does complain of shortness of breath and wheezing. She denies history of PE or DVT. She denies leg pain, swelling discoloration. She has no risk factors for PE or DVT. Prior similar symptoms: No Recent Illness/Hospitalization: No - Past Medical History (1) Bronchitis Status: Acute (2) Acute on chronic respiratory failure with hypoxia and hypercapnia Status: Chronic (3) Asthma-COPD overlap syndrome Status: Chronic (4) Atherosclerosis of coronary artery of [place] heart without angina pectoris Status: Chronic Comment: Moderate coronary artery disease involving the mid circumflex artery and distal circumflex artery with preserved left ventricular ejection fraction. 04/18/18 (5) Paroxysmal supraventricular tachycardia Status: Chronic (6) NSTEMI (non-ST elevated myocardial infarction) Status: Resolved Past Medical History - Allergies and Home Meds Allergies/Adverse Reactions: Allergies amoxicillin Allergy (Severe, Verified 01/24/19 13:12) Shortness of breath AND HIVES azithromycin Allergy (Severe, Verified 01/24/19 13:12) Shortness of breath AND HIVES clindamycin Allergy (Severe, Verified 01/24/19 13:12) Shortness of breath AND HIVES doxycycline Allergy (Severe, Verified 01/24/19 13:12) Shortness of breath AND HIVES erythromycin lactobionate [From Erythrocin] Allergy (Severe, Verified 01/24/19 13:12) Shortness of breath AND HIVES Penicillins Allergy (Severe, Verified 01/24/19 13:12) Shortness of breath AND HIVES Sulfa (Sulfonamide Antibiotics) Allergy (Severe, Verified 01/24/19 13:12) Shortness of breath AND HIVES sulfamethoxazole [From Bactrim] Allergy (Severe, Verified 01/24/19 13:12) Shortness of breath AND HIVES trimethoprim [From Bactrim] Allergy (Severe, Verified 01/24/19 13:12) Shortness of breath AND HIVES tramadol Allergy (Verified 01/24/19 13:12) Unknown codeine [From Tylenol-Codeine #3] Adverse Reaction (Verified 01/24/19 13:12) Nausea/Vom/Diarrhea terbutaline [From Brethine] Adverse Reaction (Verified 01/24/19 13:12) Other ANITHISTAMINES Allergy (Uncoded 01/24/19 13:12) Unknown Primary Care Physician: Sofy Richter DO [Primary Care Provider] - Prior records reviewed: Yes Surgical History: noncontributory, - - Emergency 1993 Left ovary follapian tube and ovary removed 1998 Throat biopsy: benign 1999 Hydrothermal ablation and D&C 2004 Emergency appendectomy 2008 Cholecystectomy lap 2002 Lives: Alone Smoking Status: Former smoker Alcohol: None Drugs: None - Family History Paternal Family History: Family History (Last Reviewed 01/10/19 @ 09:50 by Vanessa Zamora) Mother Hypertension Pulmonary embolism Psychiatric care Father Lung cancer Grandmother Breast cancer Sister Asthma Seizures Psychiatric care Depression Son Depression Psychiatric care ADHD Daughter Depression Psychiatric care Bipolar 1 disorder Family History: Reports: Hypertension Review of Systems General: Denies: Chills, Fever, Sweats Eyes: Denies: Visual changes - bilaterally, Diplopia ENT: Denies: Rhinorrhea, Sore throat Cardiovascular: Denies: Chest pain, Palpitations, Heart racing Respiratory: Reports: Dyspnea, Cough, Dyspnea on exertion Gastrointestinal: Denies: Abdominal pain, Nausea, Vomiting, Diarrhea, Melena, Hematochezia Genitourinary: Denies: Dysuria, Hematuria, Frequency Musculoskeletal: Denies: Back pain, Extremity Pain Skin: Denies: Rash, Wounds Neurological: Denies: Headache, Weakness, Numbness Hematologic: Denies: Easy bruising, Easy bleeding Allergy: Denies: Uticaria, Swelling of the mouth Physical Exam Vital Signs/Narrative: Vital Signs Temp Pulse Resp BP Pulse Ox 01/24/19 13:13 98.6 F 73 18 112/64 97 Inital Vital Signs reviewed: Yes General: Well nourished, Well developed, No Acute Distress Head: Normocephalic, Atraumatic Eyes: Perrl, EOMI ENT: Moist mucous membranes, No rhinorrhea Neck: Supple, Nontender Cardiovascular: Regular rate, Regular rhythm, No murmurs, Normal S1, Normal S2 Respiratory: No distress, Chest nontender, Wheezing, Decreased Air Movement - With increased extra phase Abdomen: Soft, Nontender, Nondistended, Normal bowel sounds Back: Nontender, Normal Inspection Extremities: Nontender, No edema, - - There is no asymmetry, swelling, discoloration, leg vein distention, palpable cords or tenderness along the distribution of the deep venous system. Skin: Normal color, No rash Neurological: Alert, Oriented x3, Cranial nerves II-XII grossly intact, Normal Strength, Normal Sensation, Normal Gait Psychological: Normal affect, Normal Mood Diagnostic/Tx/Re-eval Chest X-Ray - ED: 2 View, Read by ED Physician, Normal, Heart, Lungs, Mediastinum, Bony Structures, No Acute Disease, Chronic Changes - Medical Decision Making Chest x-ray was obtained to evaluate for pneumonia. If patient has evidence of pneumonia will treat with antibiotics otherwise treatment is albuterol metered-dose inhaler with spacer. She was treated with DuoNeb and albuterol with improvement. ED Disposition - Plan for ED Patient: Disposition: Home or Assisted Living Diagnosis: Asthmatic bronchitis Instructions: ED Upper Resp Infec No Abx Tx Prescriptions: Albuterol Inhaler [Ventolin Hfa] 2 puff INHALATION Q4H PRN PRN #1 inhaler PRN Reason: Wheezing Inhaler, Assist Devices [Space Chamber Plus] 1 ea UD #1 spacer Referrals: Sofy Richter DO [Primary Care Provider] - 3-5 Days if not improving
--- NOTE | 2019-01-24 14:26 | ED.DCSUM_ITS ---
History of Present Illness Chief Complaint: Cough Informant: Patient Onset: Yesterday Context: Sudden Onset Timing: Continuous Quality: Wheezing and productive cough Location: Respiratory Current Severity: Mild Maximum Severity: Moderate Worsened by: Cough and activity Relieved by: Nothing Associated Symptoms: No constitutional symptoms and no hemoptysis Narrative: Patient is a 54-year-old woman who is a former smoker and presents with produ ctive cough of green colored sputum that started yesterday. She denies fever, chills night sweats. She does report mild nasal congestion. Denies earache, sore throat postnasal drainage. She denies chest pain. She does complain of shortness of breath and wheezing. She denies history of PE or DVT. She denies leg pain, swelling discoloration. She has no risk factors for PE or DVT. Prior similar symptoms: No Recent Illness/Hospitalization: No - Past Medical History (1) Bronchitis Status: Acute (2) Acute on chronic respiratory failure with hypoxia and hypercapnia Status: Chronic (3) Asthma-COPD overlap syndrome Status: Chronic (4) Atherosclerosis of coronary artery of [place] heart without angina pectoris Status: Chronic Comment: Moderate coronary artery disease involving the mid circumflex artery and distal circumflex artery with preserved left ventricular ejection fraction. 04/18/18 (5) Paroxysmal supraventricular tachycardia Status: Chronic (6) NSTEMI (non-ST elevated myocardial infarction) Status: Resolved Past Medical History - Allergies and Home Meds Allergies/Adverse Reactions: Allergies amoxicillin Allergy (Severe, Verified 01/24/19 13:12) Shortness of breath AND HIVES azithromycin Allergy (Severe, Verified 01/24/19 13:12) Shortness of breath AND HIVES clindamycin Allergy (Severe, Verified 01/24/19 13:12) Shortness of breath AND HIVES doxycycline Allergy (Severe, Verified 01/24/19 13:12) Shortness of breath AND HIVES erythromycin lactobionate [From Erythrocin] Allergy (Severe, Verified 01/24/19 13:12) Shortness of breath AND HIVES Penicillins Allergy (Severe, Verified 01/24/19 13:12) Shortness of breath AND HIVES Sulfa (Sulfonamide Antibiotics) Allergy (Severe, Verified 01/24/19 13:12) Shortness of breath AND HIVES sulfamethoxazole [From Bactrim] Allergy (Severe, Verified 01/24/19 13:12) Shortness of breath AND HIVES trimethoprim [From Bactrim] Allergy (Severe, Verified 01/24/19 13:12) Shortness of breath AND HIVES tramadol Allergy (Verified 01/24/19 13:12) Unknown codeine [From Tylenol-Codeine #3] Adverse Reaction (Verified 01/24/19 13:12) Nausea/Vom/Diarrhea terbutaline [From Brethine] Adverse Reaction (Verified 01/24/19 13:12) Other ANITHISTAMINES Allergy (Uncoded 01/24/19 13:12) Unknown Primary Care Physician: Sofy Richter DO [Primary Care Provider] - Prior records reviewed: Yes Surgical History: noncontributory, - - Emergency 1993 Left ovary follapian tube and ovary removed 1998 Throat biopsy: benign 1999 Hydrothermal ablation and D&C 2004 Emergency appendectomy 2008 Cholecystectomy lap 2002 Lives: Alone Smoking Status: Former smoker Alcohol: None Drugs: None - Family History Paternal Family History: Family History (Last Reviewed 01/10/19 @ 09:50 by Vanessa Zamora) Mother Hypertension Pulmonary embolism Psychiatric care Father Lung cancer Grandmother Breast cancer Sister Asthma Seizures Psychiatric care Depression Son Depression Psychiatric care ADHD Daughter Depression Psychiatric care Bipolar 1 disorder Family History: Reports: Hypertension Review of Systems General: Denies: Chills, Fever, Sweats Eyes: Denies: Visual changes - bilaterally, Diplopia ENT: Denies: Rhinorrhea, Sore throat Cardiovascular: Denies: Chest pain, Palpitations, Heart racing Respiratory: Reports: Dyspnea, Cough, Dyspnea on exertion Gastrointestinal: Denies: Abdominal pain, Nausea, Vomiting, Diarrhea, Melena, Hematochezia Genitourinary: Denies: Dysuria, Hematuria, Frequency Musculoskeletal: Denies: Back pain, Extremity Pain Skin: Denies: Rash, Wounds Neurological: Denies: Headache, Weakness, Numbness Hematologic: Denies: Easy bruising, Easy bleeding Allergy: Denies: Uticaria, Swelling of the mouth Physical Exam Vital Signs/Narrative: Vital Signs Temp Pulse Resp BP Pulse Ox 01/24/19 13:13 98.6 F 73 18 112/64 97 Inital Vital Signs reviewed: Yes General: Well nourished, Well developed, No Acute Distress Head: Normocephalic, Atraumatic Eyes: Perrl, EOMI ENT: Moist mucous membranes, No rhinorrhea Neck: Supple, Nontender Cardiovascular: Regular rate, Regular rhythm, No murmurs, Normal S1, Normal S2 Respiratory: No distress, Chest nontender, Wheezing, Decreased Air Movement - With increased extra phase Abdomen: Soft, Nontender, Nondistended, Normal bowel sounds Back: Nontender, Normal Inspection Extremities: Nontender, No edema, - - There is no asymmetry, swelling, discoloration, leg vein distention, palpable cords or tenderness along the distribution of the deep venous system. Skin: Normal color, No rash Neurological: Alert, Oriented x3, Cranial nerves II-XII grossly intact, Normal Strength, Normal Sensation, Normal Gait Psychological: Normal affect, Normal Mood Diagnostic/Tx/Re-eval Chest X-Ray - ED: 2 View, Read by ED Physician, Normal, Heart, Lungs, Mediasti num, Bony Structures, No Acute Disease, Chronic Changes - Medical Decision Making Chest x-ray was obtained to evaluate for pneumonia. If patient has evidence of pneumonia will treat with antibiotics otherwise treatment is albuterol metered- dose inhaler with spacer. She was treated with DuoNeb and albuterol with improvement. ED Disposition - Plan for ED Patient: Disposition: Home or Assisted Living Diagnosis: Asthmatic bronchitis Instructions: ED Upper Resp Infec No Abx Tx Prescriptions: Albuterol Inhaler [Ventolin Hfa] 2 puff INHALATION Q4H PRN PRN #1 inhaler PRN Reason: Wheezing Inhaler, Assist Devices [Space Chamber Plus] 1 ea UD #1 spacer Referrals: Sofy Richter DO [Primary Care Provider] - 3-5 Days if not improving
[2019-01-24 14:39] VITALS: PULSE 72; RESP 18; O2SAT 95
[2019-01-24 14:55] VITALS: PULSE 74; RESP 18
== END 2019-01-24 14:40 | disposition home or self-care (01) ==
PROVIDERS: Emergency Provider Emergency Medicine; Family Provider Family Medicine; PCP Family Medicine
DX: J45.909 Unspecified asthma, uncomplicated (principal); Z87.891 Personal history of nicotine dependence; I25.10 Atherosclerotic heart disease of native coronary artery without angina pectoris; J96.21 Acute and chronic respiratory failure with hypoxia; J96.22 Acute and chronic respiratory failure with hypercapnia; I25.2 Old myocardial infarction
CPT/HCPCS: 71046; 94640; 99282

== ENCOUNTER 2019-01-24 18:13 | Emergency (ER) | payer MEDICAID, SELFPAY ==
[2019-01-24 13:13] VITALS: BMI 26.5
[2019-01-24 18:14] VITALS: BP 114/63; PULSE 76; RESP 12; TEMP 36.6; O2SAT 98; BMI 26.9
--- NOTE | 2019-01-24 18:25 | ED.VISSUMM ---
- ER Visit Summary Date of Service: 01/24/19 Chief Complaint: Patient was here earlier for bronchitis, after which she went to [facility] since she was in town. While walking low she developed paraspinal back pain. She also had some slight abdominal pain but she has no abdominal pain currently. Pain is moderate, lower back and paraspinal. Physical Examination: She has coarse breath sounds bilaterally she does not appear in significant distress she is speaking full sentences is lucid and coherent. She has a soft and nontender abdomen. She has paraspinal tenderness which is quite reproducible she has no pain at the CVA region. She has no spinal tenderness. Emergency Department Course and Treatment: Patient was reassured I will give her analgesia in the ED. She will be discharged in stable condition. I thought about a kidney stone since the history of present illness was somewhat concerning for this, however when I examined her her pain is all in the paraspinal muscles and quite reproducible both with palpation and movement. Disposition: Discharge stable condition Impression: Back pain This note was generated with [employer] dictation software. It may contain incorrect words, spelling, and punctuation that were not noted in review of the chart prior to signing ED Disposition - Plan for ED Patient: Disposition: Home or Assisted Living Instructions: Relieving Back Pain Prescriptions: traMADol [Ultram] 50 mg PO Q4H PRN PRN 3 Days #6 tab PRN Reason: Pain Referrals: Sofy Richter DO [Primary Care Provider] -
--- NOTE | 2019-01-24 18:28 | ED.DCSUM_ITS ---
- ER Visit Summary Date of Service: 01/24/19 Chief Complaint: Patient was here earlier for bronchitis, after which she went to [facility] since she was in town. While walking low she developed paraspinal back pain. She also had some slight abdominal pain but she has no abdominal pain currently. Pain is moderate, lower back and paraspinal. Physical Examination: She has coarse breath sounds bilaterally she does not appear in significant distress she is speaking full sentences is lucid and coherent. She has a soft and nontender abdomen. She has paraspinal tenderness which is quite reproducible she has no pain at the CVA region. She has no spinal tenderness. Emergency Department Course and Treatment: Patient was reassured I will give her analgesia in the ED. She will be discharged in stable condition. I thought about a kidney stone since the history of present illness was somewhat concerning for this, however when I examined her her pain is all in the paraspinal muscles and quite reproducible both with palpation and movement. Disposition: Discharge stable condition Impression: Back pain This note was generated with [employer] dictation software. It may contain incorrect words, spelling, and punctuation that were not noted in review of the chart prior to signing ED Disposition - Plan for ED Patient: Disposition: Home or Assisted Living Instructions: Relieving Back Pain Prescriptions: traMADol [Ultram] 50 mg PO Q4H PRN PRN 3 Days #6 tab PRN Reason: Pain Referrals: Sofy Richter DO [Primary Care Provider] -
[2019-01-24] MEDS: HYDROcodone Bitartrate/Apap 5/325 Tablet PO (18:29)
--- NOTE | 2019-01-24 18:42 | ED.DEP ---
ED Disposition - Plan for ED Patient: Disposition: Home or Assisted Living Instructions: Relieving Back Pain Prescriptions: traMADol [Ultram] 50 mg PO Q4H PRN PRN 3 Days #6 tab PRN Reason: Pain Cyclobenzaprine [Flexeril] 10 mg PO TID PRN #20 tab PRN Reason: Muscle Spasm Referrals: Sofy Richter DO [Primary Care Provider] -
== END 2019-01-24 18:45 | disposition home or self-care (01) ==
PROVIDERS: Emergency Provider Emergency Medicine; Family Provider Family Medicine; PCP Family Medicine
DX: M54.9 Dorsalgia, unspecified (principal); Z87.891 Personal history of nicotine dependence
CPT/HCPCS: 71046; 94640; 99282; 99285

== ENCOUNTER 2019-02-06 16:00 | Outpatient (RCR) | payer MEDICAID, SELFPAY ==
--- NOTE | 2019-02-03 17:10 | HP.PTEVAL_ITS ---
Patient's Visit Information ALEXEI FOWLER is a 54 year old F referred to Physical Therapy by Terrence Liu MD with a diagnosis of L shoulder partial tear of rot cuff. Date of Evaluation: 02/03/19 Physical Therapist: Justin Solorio PT, ATC - Visit Plan Frequency: 2-3x /Week Duration: 4-6 Weeks Plan: L shoulder strengthening, scap stab ex's, UBE, and HEP - Subjective Findings: Pt rerports she fell against a wall last november which resulted in L shoulder pain. Pt reports she had a cortisone injection one month ago with made to improvements. Pt is R hand dominant. Pt reports she had an MRI performed which revealed a patial tear of her rot cuff. Pt reports she is R hand dominant. Pt reports she has a lot of trouble elevating her L arm over her head. Pt reports sig sleep difficulty secondary to pain. Pt reports L UE pain radiates down her L UE to the elbow and wrist at times. Pt reports her pain is constant in nature and remains around 8/10 - Pain L shoulder Pain Intensity (Out of 10): 8 Pain Intensity Range: 8 - Objective Neuro: B UE sensation is WNL to light touch. B bicepital reflex= 2/3. P alpation: Pt is very sore on the distribution of the supraspinatus tendon. ROM: R shoulder flex= 170, abd= 170, ER= 75, IR WNL; L shoulder flex= 75, abd= 55, ER= 55, IR moderately limited. MMT: R shoulder is 5/5 throughout. L shoulder is 2+/5 and painful with testing. Special tests: Positive empty can sign - Goals Goal 1:: Decrease L shoulder pain x 50% to aid with Sleep Goal Time Frame: 4-6 Weeks Goal 2:: Increase L shoulder strength x 1 grade to aid with IADL's Goal Time Frame: 4-6 Weeks Goal 3:: Increase L shoulder strength x 1 grade to aid with IADL's Goal Time Frame: 4-6 Weeks Goal 4:: I with HEP Goal Time Frame: 4-6 Weeks - Rehabilitation Potential Physical Therapy Diagnosis: L shoulder pain, weakness, and limited ROM secondary to partial tear of L rot cuff. Rehabilitation Potential: Good - Anticipated Interventions Patient/Client Instruction: Educate patient on: Condition, Plan of Care For the Purpose of:: To improve self management Therapeutic Exercise to Include: Strength training, Endurance training, Body mechanics, Gait and locomotor training, Scapular Strength/Stabilization For the Purpose of:: To decrease pain, To increase ROM, To improve muscle performance and motor function Cryotherapy (ice pack, ice massage): Yes For the Purpose of:: To decrease pain Thank you for the opportunity to evaluate your patient. For Medicare and Medicare HMO plans, please review the plan of care and approve it. It will need to be FAXED BACK to us at [phone] for Medicare purposes. For Medicare only, by signing this I certify the plan of care. Please let me know if there are questions or concerns regarding this plan of care. Physician Signature: Date:
--- NOTE | 2019-04-22 08:53 | HP.PT.NRP ---
HP - Discharge Summary (1) - Patient Information ALEXEI FOWLER was seen in my office for initial evaluation on 02/03/19. The following Plan of Care was established for this patient: Initial Frequency: 2-3x /Week Initial Duration: 4-6 Weeks - Anticipated Interventions Patient/Client Instruction: Educate patient on: Condition, Plan of Care For the Purpose of:: To improve self management Therapeutic Exercise to Include: Strength training, Endurance training, Body mechanics, Gait and locomotor training, Scapular Strength/Stabilization For the Purpose of:: To decrease pain, To increase ROM, To improve muscle performance and motor function Cryotherapy (ice pack, ice massage): Yes For the Purpose of:: To decrease pain This patient was last seen in our office . Pertinent comments regarding their Physical therapy will appear below: Pt was treated for 3 PT visits for L shoulder pain therough the date of 02/12/19. Pt has not returned since that date and is discontinued at this time. At this point I will be discontinuing this patient from physical therapy. I would be happy to see this patient again in the future if found appropriate by the physician. Thank you! Justin Solorio, PT, ATC
== END 2019-02-06 19:00 | disposition home or self-care (01) ==
LOC: PT 16:00
PROVIDERS: Family Provider Family Medicine; PCP Family Medicine; Referring Provider Specialist; Visit Provider Specialist
DX: S46.012D Strain of muscle(s) and tendon(s) of the rotator cuff of left shoulder, subsequent encounter (principal); M65.811 Other synovitis and tenosynovitis, right shoulder; M25.512 Pain in left shoulder
CPT/HCPCS: 97110; 97161

== ENCOUNTER 2019-02-20 02:47 | Emergency (ER) | payer MEDICAID, SELFPAY ==
[2019-02-20 02:48] VITALS: BP 104/75; PULSE 114; RESP 20; TEMP 36.7; O2SAT 98; BMI 27.6
--- NOTE | 2019-02-20 02:57 | ED.VISSUMM ---
- ER Visit Summary Date of Service: 02/20/19 Chief Complaint: Nausea, vomiting, diarrhea History of Present Illness: The patient is a 54 F reports having an upset stomach over the past 3 days. She developed nausea, vomiting, and diarrhea at 10 PM last evening. She states she is not be able to keep anything down. She has had subjective chills. She has had prior appendectomy cholecystomy. Left ovary has also been removed. Physical Examination: Vital signs are remarkable only for heart rate of 114. She is afebrile. Patient sitting upright in bed no acute distress. Heart is slightly tachycardic and regular. Lung sounds clear. Abdomen is soft with mild epigastric tenderness. No guarding or rebound. Hypoactive bowel sounds are present. Test Results: CBC and chemistry studies significant for BUN of 32 and creatinine 1.24. Previous creatinine last fall was 0.8. LFTs significant for an ALT is 69 and AST of 57. Lipase is normal. Urinalysis shows 5 ketones with no sign of acute infection. Emergency Department Course and Treatment: Patient was given 0.5 mg of Dilaudid, Zofran, and IV fluids. On repeat evaluation she is tolerating ice chips and does feel improved. She will be given Zofran for home. Treatment Plan: [] Disposition: Discharge Impression: Viral gastroenteritis This note was generated with [employer] dictation software. It may contain incorrect words, spelling, and punctuation that were not noted in review of the chart prior to signing ED Disposition - Plan for ED Patient: Disposition: Home or Assisted Living Instructions: ED Gastroenteritis Viral Prescriptions: Ondansetron [Zofran Odt] 4 mg PO Q8H PRN PRN #10 tablet PRN Reason: Nausea Referrals: Sofy Richter DO [Primary Care Provider] - 3-5 Days if not improving
[2019-02-20] MEDS: Ondansetron 4 MG/2 ML Vial IV (03:00)
[2019-02-20] MEDS: 0.9% Normal Saline 1,000 ML 1000 ML IV (03:00)
[2019-02-20] MEDS: HYDROmorphone 0.5 MG/0.5 ML SYRINGE IV (03:00)
[2019-02-20 03:04] LABS: Absolute Lymphocyte Count 0.55 X10^3/ul (0.83-4.51); Absolute Neutrophil Count 7.6 X10^3/uL (2.0-7.7); Basophil# 0.01 X10^3/uL; Basophil% 0.1 % (0-1); Eosinophil# 0.07 X10^3/uL; Eosinophils% 0.8 % (0-5); Hematocrit 43.4 % (37-47); Hemoglobin 14.8 g/dl (12.0-15.0); Lymphocyte # 0.55 X10^3/ul (4.0); Lymphocyte % 6.4 % (19-41); Mean Corp Hgb Conc 34.1 g/gl (32-36); Mean Corpuscular Hgb 31.8 pg (27.0-32.0); Mean Corpuscular Volume 93.3 fL (81-99); Mean Platelet Vol. 10.6 fl (6.2-12.0); Monocyte# 0.33 X10^3/uL; Monocyte% 3.8 % (0-10); Neutrophil # 7.62 X10^3/uL (2.7-7.7); Neutrophil % 88.7 % (47-70); Platelet Count 193 K/mm3 (150-450); RBC Distribution Width CV 13.1 % (11.6-14.6); RBC Distribution Width SD 44.4 fl (35.1-43.9); Red Blood Count 4.65 M/mm3 (4.2-5.4); White Blood Count 8.6 K/mm3 (4.4-11.0)
[2019-02-20 03:05] LABS: Differential Indicated SCAN CRITERIA MET; POSITIVE COUNT NO; POSITIVE DIFFERENTIAL YES; POSITIVE MORPHOLOGY NO
[2019-02-20 03:25] LABS: Differential Comment SCANNED
[2019-02-20 03:28] LABS: AST(SGOT) 57 U/L (15-37); Alanine Aminotransfer ALT/SGPT 69 U/L (13-56); Albumin, Serum 4.4 g/dL (3.2-5.0); Alkaline Phosphatase 105 U/L (45-117); Anion Gap 9 (5-15); BUN 32 mg/dL (7-18); BUN/Creat Ratio 25.8 RATIO (10-20); Bilirubin, Direct 0.09 mg/dL (0.00-0.30); Calcium,Total 9.3 mg/dL (8.5-10.1); Chloride 106 mmol/L (98-107); Creatinine, Serum 1.24 mg/dL (0.55-1.02); EST Glomerular Filtration Rate 48 mL/min (>60); Est Glom Filt Rate - Afr Amer 58 mL/min (>60); Globulin 4.2 g/dL (2.2-4.2); Glucose 131 mg/dL (74-106); Lipase 79 U/L (73-393); Potassium 4.2 mmol/L (3.5-5.1); Protein, Total 8.6 g/dL (6.4-8.2); Sodium Level 142 mmol/L (136-145)
[2019-02-20] MEDS: 0.9% Normal Saline 1,000 ML 150 ML IV (04:04)
--- NOTE | 2019-02-20 04:06 | ED.RN ---
ICE CHIP PO CHALLENGE PER DR. KAY INITIATED.
[2019-02-20 04:10] LABS: Bacteria 0 SEEN /hpf (None Seen)
[2019-02-20 04:12] LABS: Color, Urine Yellow (Yellow); Glucose, Dipstick Normal (Normal); Ketone-Dipstick 5 mg/dl (Negative); Leukocyte Esterase-Dipstick 100 /ul (Negative); Nitrite-Dipstick Negative (Negative); Occult Blood-Urine 10 /ul (Negative); Protein-Dipstick 15 mg/dl (Negative); Urine Bilirubin Dipstick Negative (Negative); Urine Clarity Clear (Clear); Urine Urobilinogen Normal (Normal)
[2019-02-20 04:18] LABS: Mucous, Urine 1+ /hpf (<or=2+); Red Blood Cells-Urine 0-5 SEEN /hpf (0-5); Squamous Epithelial Cells - UA 0-5 SEEN /hpf (5-10); White Blood Cells 5-10 SEEN /hpf (0-5)
[2019-02-20] MEDS: Ondansetron ODT 4 MG Tablet PO (04:31)
[2019-02-20 04:39] VITALS: BP 108/68; PULSE 100; RESP 16; O2SAT 100
== END 2019-02-20 04:42 | disposition home or self-care (01) ==
PROVIDERS: Emergency Provider Emergency Medicine; Family Provider Family Medicine; PCP Family Medicine
DX: A08.4 Viral intestinal infection, unspecified (principal); I25.10 Atherosclerotic heart disease of native coronary artery without angina pectoris; I25.2 Old myocardial infarction; J45.909 Unspecified asthma, uncomplicated; J44.9 Chronic obstructive pulmonary disease, unspecified; Z87.891 Personal history of nicotine dependence; Z90.49 Acquired absence of other specified parts of digestive tract
CPT/HCPCS: 80048; 80076; 81001; 83690; 85025; 96361; 96374; 96375; 99284; J7030; J2405

== ENCOUNTER → 2019-04-16 15:34 | Outpatient (CLI) | payer MEDICAID, SELFPAY ==
[2019-03-04 12:53] VITALS: BMI 27.6
== END ==
PROVIDERS: Family Provider Family Medicine; PCP Family Medicine; Visit Provider Family Medicine
DX: R32 Unspecified urinary incontinence (principal)
CPT/HCPCS: 87086; 87088

== ENCOUNTER → 2019-05-01 15:10 | Outpatient (CLI) | payer MEDICAID, SELFPAY ==
[2019-03-04 12:53] VITALS: BMI 27.6
[2019-05-01 16:57] LABS: Absolute Lymphocyte Count 2.75 X10^3/uL (0.83-4.51); Absolute Neutrophil Count 2.8 X10^3/uL (2.0-7.7); Basophil# 0.03 X10^3/uL; Basophil% 0.5 % (0-1); Eosinophil# 0.12 X10^3/uL; Eosinophils% 1.9 % (0-5); Hematocrit 36.5 % (37-47); Hemoglobin 11.7 g/dL (12.0-15.0); Lymphocyte # 2.75 X10^3/ul (4.0); Lymphocyte % 44.6 % (19-41); Mean Corp Hgb Conc 32.1 g/dL (32-36); Mean Corpuscular Hgb 31.2 pg (27.0-32.0); Mean Corpuscular Volume 97.3 fL (81-99); Mean Platelet Vol. 11.5 fl (6.2-12.0); Monocyte# 0.44 X10^3/uL; Monocyte% 7.1 % (0-10); NRBC Flagged by Analyzer 0 % (0-5); Neutrophil # 2.81 X10^3/uL (2.7-7.7); Neutrophil % 45.7 % (47-70); Platelet Count 201 K/mm3 (150-450); RBC Distribution Width CV 12.3 % (11.6-14.6); RBC Distribution Width SD 44.6 fl (35.1-43.9); Red Blood Count 3.75 M/mm3 (4.2-5.4); White Blood Count 6.2 K/mm3 (4.4-11.0)
[2019-05-01 17:51] LABS: ALB/GLOB Ratio 1.1 RATIO (0.9-2.4); AST(SGOT) 27 U/L (15-37); Alanine Aminotransfer ALT/SGPT 26 U/L (13-56); Albumin, Serum 3.6 g/dL (3.2-5.0); Alkaline Phosphatase 100 U/L (45-117); Anion Gap 8 (5-15); BUN 18 mg/dL (7-18); BUN/Creat Ratio 22.1 RATIO (10-20); Calcium,Total 8.3 mg/dL (8.5-10.1); Chloride 106 mmol/L (98-107); Cholesterol 124 mg/dL (200); Creatinine, Serum 0.82 mg/dL (0.55-1.02); EST Glomerular Filtration Rate 78 mL/min (>60); Est Glom Filt Rate - Afr Amer 94 mL/min (>60); Free T3 2.7 pg/mL (2.18-3.98); Globulin 3.3 g/dL (2.2-4.2); Glucose 81 mg/dL (74-106); High Density Lipoprotein 60 mg/dL; Potassium 3.9 mmol/L (3.5-5.1); Protein, Total 6.9 g/dL (6.4-8.2); Sodium Level 143 mmol/L (136-145); T4 Free Direct 0.89 ng/dL (0.76-1.46); Thyroid Stim Hormone (TSH) 0.71 uIU/mL (0.358-3.74); Triglycerides 105 mg/dL; Very Low Density Lipoprotein 21 mg/dL (5-40)
== END ==
PROVIDERS: Family Provider Family Medicine; PCP Family Medicine; Visit Provider Family Medicine
DX: E03.9 Hypothyroidism, unspecified (principal); E87.6 Hypokalemia; E78.5 Hyperlipidemia, unspecified; R53.83 Other fatigue
CPT/HCPCS: 36415; 80053; 80061; 84439; 84443; 84481; 85025

== ENCOUNTER → 2019-06-06 13:46 | Outpatient (CLI) | payer MEDICAID, SELFPAY ==
[2019-03-04 12:53] VITALS: BMI 27.6
[2019-06-06 16:14] LABS: Absolute Lymphocyte Count 2.47 X10^3/uL (0.83-4.51); Absolute Neutrophil Count 2.6 X10^3/uL (2.0-7.7); Basophil# 0.03 X10^3/uL; Basophil% 0.5 % (0-1); Eosinophil# 0.16 X10^3/uL; Eosinophils% 2.8 % (0-5); Hematocrit 39.3 % (37-47); Hemoglobin 12.9 g/dL (12.0-15.0); Lymphocyte # 2.47 X10^3/ul (4.0); Lymphocyte % 43.6 % (19-41); Mean Corp Hgb Conc 32.8 g/dL (32-36); Mean Corpuscular Hgb 31.1 pg (27.0-32.0); Mean Corpuscular Volume 94.7 fL (81-99); Mean Platelet Vol. 11.9 fl (6.2-12.0); Monocyte# 0.41 X10^3/uL; Monocyte% 7.2 % (0-10); NRBC Flagged by Analyzer 0 % (0-5); Neutrophil # 2.58 X10^3/uL (2.7-7.7); Neutrophil % 45.5 % (47-70); Platelet Count 239 K/mm3 (150-450); RBC Distribution Width CV 11.2 % (11.6-14.6); RBC Distribution Width SD 38.9 fl (35.1-43.9); Red Blood Count 4.15 M/mm3 (4.2-5.4); White Blood Count 5.7 K/mm3 (4.4-11.0)
== END ==
PROVIDERS: Family Provider Family Medicine; PCP Family Medicine; Visit Provider Family Medicine
DX: D64.9 Anemia, unspecified (principal)
CPT/HCPCS: 36415; 85025

== ENCOUNTER 2019-06-15 02:55 | Emergency (ER) | payer MEDICAID, SELFPAY ==
[2019-03-04 12:53] VITALS: BMI 27.6
[2019-06-15 02:56] VITALS: BP 122/74; PULSE 104; RESP 20; TEMP 38.2; O2SAT 93; BMI 30.7
--- NOTE | 2019-06-15 03:03 | EKG12_ITS ---
Test Reason : CP Blood Pressure : / mmHG Vent. Rate : 104 BPM Atrial Rate : 104 BPM P-R Int : 114 ms QRS Dur : 064 ms QT Int : 350 ms P-R-T Axes : 070 042 074 degrees QTc Int : 460 ms Sinus tachycardia Confirmed by ANDREA PALMER, NICOLETTE ([id number]), editorial clerk ADDIE REY ([id number]) on 06/25/2019 2:36:44 PM Referred By: MILKA Confirmed By:NICOLETTE MENDEZ MD
[2019-06-15 03:05] VITALS: BP 111/97; PULSE 103; RESP 23; TEMP 38.2; O2SAT 96
--- NOTE | 2019-06-15 03:05 | RAD_ITS ---
STUDY: X-RAY CHEST REASON FOR EXAM: Female, 54 years old. Chest pain TECHNIQUE: Single AP portable view of the chest. COMPARISON: None. FINDINGS: The lungs are clear and expanded. There is no demonstrated pleural abnormality. Normal size heart. Normal mediastinum and ashli. Normal visualized pulmonary arteries. Normal visualized aortic arch and descending thoracic aorta. Normal visualized thoracic spine. Normal visualized ribs, clavicles, and shoulders. There is no demonstrated abnormality of the visualized soft tissue structures of the upper abdomen. RAD/Chest 1 View (Portable) IMPRESSION: Normal x-ray examination of the chest. Electronically Signed: Nenita Huerta, at 3:48 EDT Tel , Service support ,
--- NOTE | 2019-06-15 03:05 | ED.VISSUMM ---
- ER Visit Summary Date of Service: 06/15/19 Chief Complaint: Chest pain, shortness of breath and cough History of Present Illness: The patient is a 54 F who complains of chest pain, shortness of breath and cough. Started tonight. She states the pain is in the middle part of her chest and goes into her back. She describes as a pressure. Nothing makes it better or worse. She does feel short of breath. She admits to a cough which is been ongoing for the past 3 days. It has been productive of green sputum at times. She has a history of COPD and wears oxygen, 2 L at night. She admits to chills but no documented fevers. She also has a history of an MT in the past. EMS was called and they administered 4 baby aspirin in route. Physical Examination: Vital signs reviewed. HEENT exam unremarkable. Heart is regular rate and rhythm without murmurs. Lungs have diffuse mild expiratory wheezing. Abdomen is soft and nontender. Extremities reveal no edema. Peripheral pulses are equal. Skin exam normal. Neurologic exam normal. Test Results: Laboratory studies are normal. EKG is sinus rhythm with nonspecific changes. Chest x-ray normal. Emergency Department Course and Treatment: Patient was given an albuterol treatment and feels better. She is pain-free. I feel that her symptoms are likely due to bronchitis. I have low suspicion for cardiac issues. She has a normal troponin and an unchanged EKG. I will treat her with Mucinex DM at home. She will continue albuterol inhalers and nebulizer treatments at home. She will call her doctor on Sunday for follow-up. Treatment Plan: [] Disposition: Discharge Impression: Bronchitis This note was generated with [employer] dictation software. It may contain incorrect words, spelling, and punctuation that were not noted in review of the chart prior to signing ED Disposition - Plan for ED Patient: Referrals: Sofy Richter DO [Primary Care Provider] -
[2019-06-15 03:06] VITALS: PULSE 103; RESP 14
[2019-06-15] MEDS: Albuterol 2.5 MG/3 ML VIAL.NEB. INHALATION (03:08)
[2019-06-15 03:18] LABS: Absolute Lymphocyte Count 2.03 X10^3/uL (0.83-4.51); Basophil# 0.04 X10^3/uL; Basophil% 0.4 % (0-1); Eosinophil# 0.14 X10^3/uL; Eosinophils% 1.4 % (0-5); Hematocrit 38.4 % (37-47); Hemoglobin 12.7 g/dL (12.0-15.0); Lymphocyte # 2.03 X10^3/ul (4.0); Lymphocyte % 20.8 % (19-41); Mean Corp Hgb Conc 33.1 g/dL (32-36); Mean Corpuscular Hgb 31.7 pg (27.0-32.0); Mean Corpuscular Volume 95.8 fL (81-99); Mean Platelet Vol. 10.8 fl (6.2-12.0); Monocyte# 0.56 X10^3/uL; Monocyte% 5.7 % (0-10); NRBC Flagged by Analyzer 0 % (0-5); Neutrophil # 6.97 X10^3/uL (2.7-7.7); Neutrophil % 71.4 % (47-70); Platelet Count 194 K/mm3 (150-450); RBC Distribution Width CV 11.6 % (11.6-14.6); Red Blood Count 4.01 M/mm3 (4.2-5.4); White Blood Count 9.8 K/mm3 (4.4-11.0)
[2019-06-15] MEDS: Nitroglycerin SL (ED/IMG/CATH) 0.4 MG TABLET SUBLINGUAL (03:18)
[2019-06-15 03:19] VITALS: BP 108/85; PULSE 121; RESP 18; O2SAT 91
[2019-06-15 03:31] LABS: Anion Gap 8 (5-15); BUN 14 mg/dL (7-18); BUN/Creat Ratio 17.7 RATIO (10-20); Calcium,Total 8.8 mg/dL (8.5-10.1); Chloride 107 mmol/L (98-107); Creatinine, Serum 0.79 mg/dL (0.55-1.02); EST Glomerular Filtration Rate 81 mL/min (>60); Est Glom Filt Rate - Afr Amer 98 mL/min (>60); Estimated Creatinine Clearance 68.13 ml/min; Glucose 105 mg/dL (74-106); Potassium 3.8 mmol/L (3.5-5.1); Sodium Level 145 mmol/L (136-145)
--- NOTE | 2019-06-15 04:00 | ED.DEP ---
ED Disposition - Plan for ED Patient: Disposition: Home or Assisted Living Instructions: Acute Bronchitis Prescriptions: Guaifenesin/Pseudoephedrne HCl [Mucinex D ER 600-60 mg Tablet] 1 ea PO BID #14 tab.er.12h Prescription Printed Referrals: Sofy Richter DO [Primary Care Provider] -
[2019-06-15 04:05] VITALS: BP 96/57; PULSE 112; RESP 19; O2SAT 95
== END 2019-06-15 04:45 | disposition home or self-care (01) ==
PROVIDERS: Emergency Provider Emergency Medicine; Family Provider Family Medicine; PCP Family Medicine
DX: J40 Bronchitis, not specified as acute or chronic (principal); J44.9 Chronic obstructive pulmonary disease, unspecified; I25.2 Old myocardial infarction; Z99.81 Dependence on supplemental oxygen; E78.00 Pure hypercholesterolemia, unspecified; I25.10 Atherosclerotic heart disease of native coronary artery without angina pectoris
CPT/HCPCS: 71045; 80048; 84484; 85025; 93005; 94640; 99285

== ENCOUNTER → 2019-07-18 14:03 | Outpatient (CLI) | payer MEDICAID, SELFPAY ==
[2019-07-18 09:34] VITALS: BMI 29.7
[2019-07-18 15:41] LABS: Absolute Lymphocyte Count 2.59 X10^3/uL (0.83-4.51); Absolute Neutrophil Count 2.8 X10^3/uL (2.0-7.7); Basophil# 0.04 X10^3/uL; Basophil% 0.7 % (0-1); Eosinophil# 0.22 X10^3/uL; Eosinophils% 3.6 % (0-5); Hematocrit 39.8 % (37-47); Lymphocyte # 2.59 X10^3/ul (4.0); Lymphocyte % 42.9 % (19-41); Mean Corp Hgb Conc 32.7 g/dL (32-36); Mean Corpuscular Hgb 30.7 pg (27.0-32.0); Mean Corpuscular Volume 93.9 fL (81-99); Mean Platelet Vol. 11.4 fl (6.2-12.0); Monocyte# 0.41 X10^3/uL; Monocyte% 6.8 % (0-10); NRBC Flagged by Analyzer 0 % (0-5); Neutrophil # 2.76 X10^3/uL (2.7-7.7); Neutrophil % 45.7 % (47-70); Platelet Count 202 K/mm3 (150-450); RBC Distribution Width CV 11.6 % (11.6-14.6); RBC Distribution Width SD 39.8 fl (35.1-43.9); Red Blood Count 4.24 M/mm3 (4.2-5.4)
[2019-07-18 16:17] LABS: AST(SGOT) 28 U/L (15-37); Alanine Aminotransfer ALT/SGPT 27 U/L (13-56); Albumin, Serum 3.8 g/dL (3.2-5.0); Alkaline Phosphatase 112 U/L (45-117); Anion Gap 8 (5-15); BUN 18 mg/dL (7-18); BUN/Creat Ratio 21.2 RATIO (10-20); Calcium,Total 8.8 mg/dL (8.5-10.1); Chloride 107 mmol/L (98-107); Creatinine, Serum 0.85 mg/dL (0.55-1.02); EST Glomerular Filtration Rate 74 mL/min (>60); Est Glom Filt Rate - Afr Amer 90 mL/min (>60); Free T3 2.5 pg/mL (2.18-3.98); Globulin 3.7 g/dL (2.2-4.2); Glucose 97 mg/dL (74-106); Potassium 3.8 mmol/L (3.5-5.1); Protein, Total 7.5 g/dL (6.4-8.2); Sodium Level 143 mmol/L (136-145); T4 Free Direct 0.72 ng/dL (0.76-1.46); Thyroid Stim Hormone (TSH) 1.98 uIU/mL (0.358-3.74)
== END ==
PROVIDERS: Family Provider Family Medicine; PCP Family Medicine; Visit Provider Family Medicine
DX: E03.9 Hypothyroidism, unspecified (principal); E78.5 Hyperlipidemia, unspecified; E87.6 Hypokalemia; R53.83 Other fatigue; Z51.81 Encounter for therapeutic drug level monitoring
CPT/HCPCS: 36415; 80053; 84439; 84443; 84481; 85025

== ENCOUNTER 2019-09-17 10:37 | Emergency (ER) | payer MEDICAID, SELFPAY ==
[2019-07-24 14:26] VITALS: BMI 29.7
[2019-09-17 10:39] VITALS: BP 106/73; PULSE 95; RESP 17; TEMP 37.1; O2SAT 97; BMI 31.6
--- NOTE | 2019-09-17 10:52 | EKG12_ITS ---
Test Reason : ABD PAIN Blood Pressure : / mmHG Vent. Rate : 085 BPM Atrial Rate : 085 BPM P-R Int : 122 ms QRS Dur : 068 ms QT Int : 382 ms P-R-T Axes : 072 060 072 degrees QTc Int : 454 ms Normal sinus rhythm Normal ECG Confirmed by GRICELDA PALMER, MARISELA ([id number]), department editor KELLY KIMBALL ([id number]) on 09/24/2019 11:30:31 AM Referred By: HUGO Confirmed By:NICOLÁS MADISON MD
--- NOTE | 2019-09-17 10:52 | CT_ITS ---
STUDY: CT ABDOMEN AND PELVIS WITHOUT CONTRAST REASON FOR EXAM: Female, 54 years old. Worsening abdominal and back pain. RADIATION DOSAGE (If Supplied By Facility): CTDIvol = ( 12.91 ) mGy, DLP = ( 638.46 ) mGycm TECHNIQUE: Transaxial images were obtained from the dome of the diaphragm to the symphysis pubis without oral contrast, and without intravenous contrast. Sagittal and coronal images were reconstructed. Individualized dose optimization techniques were used for this CT. COMPARISON: Comparison is made with prior examination dated December 28, 2016. FINDINGS: Stable minimal increased markings at the lung bases suggestive of scarring. 2 mm bleb in the left lower lobe. Coronary artery calcification. Normal liver. There are surgical clips in the gallbladder fossa consistent with a prior cholecystectomy. Normal spleen. Normal pancreas. Normal bilateral adrenal glands. Normal right kidney. Normal left kidney. There is a small hiatal hernia. The stomach is distended with residual food particles. Normal small intestine. There are multiple colonic diverticula consistent with diverticulosis. There are surgical clips in the region of the appendix consistent with a prior appendectomy. There is diffuse atherosclerotic calcification of the abdominal aorta and its major visceral branches., without a demonstrated aneurysm. Normal inferior vena cava. There is borderline retroperitoneal lymphadenopathy with enlarged nodes no greater than 10mm in the short axis diameter. Normal urinary bladder. Normal abdominal wall. Normal osseous structures. CT/Abdomen/Pelvis without Cont IMPRESSION: Sigmoid diverticulosis. Status post cholecystectomy and appendectomy. Electronically Signed: Crow Gibson, at 12:15 EST , Service support ,
--- NOTE | 2019-09-17 10:56 | ED.DCSUM_ITS ---
History of Present Illness Chief Complaint: Abd Pain Informant: Patient Onset: Days Maximum Severity: Mild Narrative: Cough abdominal pain for about 4- 5 days diarrhea Patient presents without complaints she indicates she has had loose stools d iarrhea, worsening of her chronic cough, and sense of diffuse generalized abdominal pain and fullness she is having normal bowel bladder habits, she has history of cholecystectomy appendectomy, diverticulitis, COPD, she has no history of bowel obstruction AK PE. Indicates the cough has persisted she also reports her COPD is generally well controlled she is not recently been on antibiotics or steroids no fever eating and drinking without difficulty Past Medical History - Allergies and Home Meds Allergies/Adverse Reactions: Allergies amoxicillin Allergy (Severe, Verified 09/17/19 10:38) Shortness of breath AND HIVES azithromycin Allergy (Severe, Verified 09/17/19 10:38) Shortness of breath AND HIVES clindamycin Allergy (Severe, Verified 09/17/19 10:38) Shortness of breath AND HIVES doxycycline Allergy (Severe, Verified 09/17/19 10:38) Shortness of breath AND HIVES erythromycin lactobionate [From Erythrocin] Allergy (Severe, Verified 09/17/19 10:38) Shortness of breath AND HIVES Penicillins Allergy (Severe, Verified 09/17/19 10:38) Shortness of breath AND HIVES Sulfa (Sulfonamide Antibiotics) Allergy (Severe, Verified 09/17/19 10:38) Shortness of breath AND HIVES sulfamethoxazole [From Bactrim] Allergy (Severe, Verified 09/17/19 10:38) Shortness of breath AND HIVES trimethoprim [From Bactrim] Allergy (Severe, Verified 09/17/19 10:38) Shortness of breath AND HIVES meloxicam [From Mobic] Allergy (Verified 09/17/19 10:38) Chest tightness tramadol Allergy (Verified 09/17/19 10:38) Unknown codeine [From Tylenol-Codeine #3] Adverse Reaction (Verified 09/17/19 10:38) Nausea/Vom/Diarrhea terbutaline [From Brethine] Adverse Reaction (Verified 09/17/19 10:38) Other ANITHISTAMINES Allergy (Uncoded 09/17/19 10:38) Unknown Primary Care Physician: Sofy Richter DO [Primary Care Provider] - Past Medical History: - - As above Surgical History: noncontributory, - - Emergency 1993 Left ovary follapian tube and ovary removed 1998 Throat biopsy: benign 1999 Hydrothermal ablation and D&C 2004 Emergency appendectomy 2008 Cholecystectomy lap 2002 Smoking Status: Former smoker - Family History Paternal Family History: Family History (Last Reviewed 07/24/19 @ 14:15 by Ericka Reis) Mother Hypertension Pulmonary embolism Psychiatric care Father Lung cancer Grandmother Breast cancer Sister Asthma Seizures Psychiatric care Depression Son Depression Psychiatric care ADHD Daughter Depression Psychiatric care Bipolar 1 disorder Family History: Reports: Hypertension Review of Systems General: Denies: Chills, Fever, Sweats Eyes: Denies: Visual changes - bilaterally, Diplopia ENT: Denies: Rhinorrhea, Sore throat Cardiovascular: Denies: Chest pain, Palpitations Respiratory: Reports: Cough. Denies: Dyspnea, Dyspnea on exertion Gastrointestinal: Reports: Abdominal pain, Diarrhea. Denies: Nausea, Vomiting, Melena, Hematochezia Genitourinary: Denies: Dysuria, Hematuria, Frequency Musculoskeletal: Denies: Back pain, Extremity Pain Skin: Denies: Rash, Wounds Neurological: Denies: Headache, Weakness, Numbness Physical Exam Vital Signs/Narrative: Vital Signs Temp Pulse Resp BP Pulse Ox 09/17/19 10:39 98.7 F 95 17 106/73 97 General: Well nourished, Well developed, No Acute Distress Head: Normocephalic, Atraumatic Eyes: Perrl, EOMI ENT: Moist mucous membranes, No rhinorrhea Neck: Supple, Nontender Cardiovascular: Regular rate, Regular rhythm, No murmurs Respiratory: No distress, CTA bilaterally, Chest nontender Abdomen: Soft, Nontender, Nondistended, Normal bowel sounds, - - Abdomen is soft there is no rebound guarding organomegaly or fullness, it is slightly obese, she takes her hand and draws it in a [place] tribe around her abdomen complaining of discomfort Back: Nontender, Normal Inspection Extremities: Nontender, No edema Skin: Normal color, No rash Neurological: Alert, Oriented x3, Cranial nerves II-XII grossly intact, Normal Strength, Normal Sensation Psychological: Normal affect, Normal Mood Diagnostic/Tx/Re-eval - Medical Decision Making Given her complaints her age her past history screening labs IV fluids pain management CT chest x-ray aerosols The patient screening evaluation is generally unremarkable, signs of UTI, urine culture sent, EKG labs CT abdomen pelvis, the chest x-ray shows per radiology with possible early right infrahilar infiltrate, given her age and her COPD UTI she started on Levaquin continue her inhalers will follow-up with outpatient providers return for change in symptoms sHe is comfortable with this plan feels improved Home stable Final impression, right sided pneumonia, UTI exacerbation of COPD ED Disposition - Plan for ED Patient: Diagnosis: Pneumonia Instructions: PNEUMONIA (Adult) Prescriptions: Levofloxacin [Levaquin] 750 mg PO DAILY #7 tab Prescription Printed Albuterol Inhaler [Ventolin Hfa] 1 - 2 puff INHALATION Q4H PRN PRN #1 inhaler PRN Reason: Wheezing Prescription Printed Referrals: Sofy Richter DO [Primary Care Provider] -
--- NOTE | 2019-09-17 11:01 | RAD_ITS ---
STUDY: X-RAY CHEST REASON FOR EXAM: Female, 54 years old. Cough. TECHNIQUE: Single AP portable view of the chest. COMPARISON: Comparison is made with prior study dated June 15, 2019. FINDINGS: Increased markings in the right infrahilar region suggestive of mild right infrahilar There is no demonstrated pleural abnormality. Normal size heart. Normal mediastinum and ashli. Normal visualized pulmonary arteries. Normal visualized aortic arch and descending thoracic aorta. Normal visualized thoracic spine. Normal visualized ribs, clavicles, and shoulders. There is no demonstrated abnormality of the visualized soft tissue structures of the upper abdomen. RAD/Chest 1 View (Portable) IMPRESSION: Focal right infrahilar infiltrate. Electronically Signed: Crow Gibson, at 11:16 EST , Service support ,
[2019-09-17] MEDS: Ondansetron 4 MG/2 ML Vial IV (11:10)
[2019-09-17] MEDS: morphine 8 MG/ML Syringe IV (11:10)
[2019-09-17] MEDS: 0.9% Normal Saline 1,000 ML 125 ML IV (11:11)
[2019-09-17 11:14] LABS: Absolute Lymphocyte Count 2.23 X10^3/uL (0.83-4.51); Basophil# 0.03 X10^3/uL; Basophil% 0.6 % (0-1); Hematocrit 36.3 % (37-47); Lymphocyte # 2.23 X10^3/ul (4.0); Lymphocyte % 45.1 % (19-41); Mean Corp Hgb Conc 33.1 g/dL (32-36); Mean Corpuscular Hgb 30.5 pg (27.0-32.0); Mean Corpuscular Volume 92.4 fL (81-99); Monocyte# 0.42 X10^3/uL; Monocyte% 8.5 % (0-10); NRBC Flagged by Analyzer 0 % (0-5); Neutrophil # 2.04 X10^3/uL (2.7-7.7); Neutrophil % 41.4 % (47-70); Platelet Count 177 K/mm3 (150-450); RBC Distribution Width CV 12.3 % (11.6-14.6); RBC Distribution Width SD 42.1 fl (35.1-43.9); Red Blood Count 3.93 M/mm3 (4.2-5.4); White Blood Count 4.9 K/mm3 (4.4-11.0)
[2019-09-17 11:18] LABS: Bacteria 0 SEEN /hpf (None Seen); Mucous, Urine 0 SEEN /hpf (<or=2+); Red Blood Cells-Urine 0 SEEN /hpf (0-5)
[2019-09-17] MEDS: Ipratropium/Albuterol Sulfate 3 ML AMPUL.NEB INHALATION (11:19)
[2019-09-17 11:22] LABS: Color, Urine Yellow (Yellow); Glucose, Dipstick Normal (Normal); Ketone-Dipstick Negative (Negative); Leukocyte Esterase-Dipstick 100 /ul (Negative); Nitrite-Dipstick Negative (Negative); Occult Blood-Urine Negative /ul (Negative); Protein-Dipstick 15 mg/dl (Negative); Urine Bilirubin Dipstick Negative (Negative); Urine Clarity Sl. Cloudy (Clear); Urine Urobilinogen Normal (Normal)
[2019-09-17 11:23] VITALS: PULSE 92; RESP 15; O2SAT 94
[2019-09-17 11:27] LABS: Squamous Epithelial Cells - UA 0-5 SEEN /hpf (5-10); White Blood Cells 10-25 SEEN /hpf (0-5)
[2019-09-17 11:37] LABS: ALB/GLOB Ratio 1.2 RATIO (0.9-2.4); AST(SGOT) 32 U/L (15-37); Alanine Aminotransfer ALT/SGPT 39 U/L (13-56); Albumin, Serum 3.7 g/dL (3.2-5.0); Alkaline Phosphatase 90 U/L (45-117); Anion Gap 5 (5-15); BUN 15 mg/dL (7-18); BUN/Creat Ratio 17.2 RATIO (10-20); Chloride 106 mmol/L (98-107); Creatinine, Serum 0.87 mg/dL (0.55-1.02); EST Glomerular Filtration Rate 72 mL/min (>60); Est Glom Filt Rate - Afr Amer 87 mL/min (>60); Estimated Creatinine Clearance 61.86 ml/min; Glucose 79 mg/dL (74-106); Lipase 117 U/L (73-393); Potassium 3.5 mmol/L (3.5-5.1); Protein, Total 6.7 g/dL (6.4-8.2); Sodium Level 145 mmol/L (136-145)
[2019-09-17] MEDS: levoFLOXacin IV 750 MG/150 ML BAG 100 MG IV (12:01)
[2019-09-17 12:19] VITALS: BP 91/79; PULSE 94; RESP 16; TEMP 36.6; O2SAT 96
[2019-09-17 13:18] VITALS: BP 121/67; PULSE 96; RESP 16; TEMP 36.6; O2SAT 96
== END 2019-09-17 13:55 | disposition home or self-care (01) ==
LOC: ED 11:52
PROVIDERS: Emergency Provider Emergency Medicine; Family Provider Family Medicine; PCP Family Medicine
DX: J44.0 Chronic obstructive pulmonary disease with (acute) lower respiratory infection (principal); J18.9 Pneumonia, unspecified organism; J44.1 Chronic obstructive pulmonary disease with (acute) exacerbation; N39.0 Urinary tract infection, site not specified; Z87.891 Personal history of nicotine dependence
CPT/HCPCS: 71045; 74176; 80053; 81001; 83690; 84484; 85025; 87086; 87088; 93005; 94640; 96361; 96365; 96366; 96375; 99283; J7030; A4216; J0744; J2405

== ENCOUNTER → 2019-09-25 13:31 | Outpatient (CLI) | payer MEDICAID, SELFPAY ==
[2019-07-24 14:26] VITALS: BMI 29.7
[2019-09-17 10:39] VITALS: BMI 31.6
[2019-09-25 16:19] LABS: Free T3 3.5 pg/mL (2.18-3.98); T4 Free Direct 0.96 ng/dL (0.76-1.46); Thyroid Stim Hormone (TSH) 0.89 uIU/mL (0.358-3.74)
== END ==
LOC: LAB.FUTURE 13:31 → BFHLAB 03-26 11:03
PROVIDERS: Family Provider Family Medicine; PCP Family Medicine; Visit Provider Family Medicine
DX: E03.9 Hypothyroidism, unspecified (principal)
CPT/HCPCS: 36415; 84439; 84443; 84481

== ENCOUNTER → 2019-10-28 15:06 | Outpatient (CLI) | payer MEDICAID, SELFPAY ==
[2019-09-25 16:37] VITALS: BMI 31.5
--- NOTE | 2019-10-28 15:10 | RAD_ITS ---
STUDY: X-RAY CHEST REASON FOR EXAM: Female, 54 years old. Right infrahilar pneumonia TECHNIQUE: Frontal and lateral views COMPARISON: September 17, 2019 FINDINGS: The lungs are clear and expanded. There is no demonstrated pleural abnormality. Normal size heart. Normal mediastinum and ashli. Normal visualized pulmonary arteries. Normal visualized aortic arch and descending thoracic aorta. Normal visualized thoracic spine. Normal visualized ribs, clavicles, and shoulders. There is no demonstrated abnormality of the visualized soft tissue structures of the upper abdomen. RAD/Chest PA and Lateral IMPRESSION: Normal x-ray examination of the chest. Electronically Signed: Luther Ruiz DO at 20:27 EST Tel [phone], Service support ,
== END ==
PROVIDERS: PCP Family Medicine; Referring Provider Family Medicine; Visit Provider Family Medicine
DX: J18.9 Pneumonia, unspecified organism (principal)
CPT/HCPCS: 71046

== ENCOUNTER 2019-12-16 16:59 | Emergency (ER) | payer MEDICAID, SELFPAY ==
[2019-09-25 16:37] VITALS: BMI 31.5
[2019-12-16 17:00] VITALS: BP 116/73; PULSE 90; RESP 18; TEMP 36.4; O2SAT 97; BMI 31.9
--- NOTE | 2019-12-16 17:02 | EKG12_ITS ---
Test Reason : SOB Blood Pressure : / mmHG Vent. Rate : 081 BPM Atrial Rate : 081 BPM P-R Int : 128 ms QRS Dur : 070 ms QT Int : 392 ms P-R-T Axes : 075 021 061 degrees QTc Int : 455 ms Normal sinus rhythm Normal ECG Confirmed by GRICELDA PALMER, MARISELA ([id number]), script editor ADDIE REY ([id number]) on 12/19/2019 12:55:32 PM Referred By: CEM/GIANA Confirmed By:NICOLÁS MADISON MD
--- NOTE | 2019-12-16 17:27 | RAD_ITS ---
STUDY: X-RAY CHEST REASON FOR EXAM: Female, 54 years old. COUGH AND SOB TECHNIQUE: Single frontal view of the chest. COMPARISON: 10/28/2019 FINDINGS: Cardiac silhouette unremarkable. Pulmonary vascularity unremarkable. Aorta unremarkable. Persistent minimal bibasilar density may represent atelectasis. No pleural effusions. Upper abdomen unremarkable. Osseous structures intact. No pneumothorax. RAD/Chest 1 View (Portable) IMPRESSION: No acute cardiopulmonary findings. Persistent minimal bibasilar density may represent atelectasis. Electronically Signed: Albert Obando, at 18:51 EDT Tel , Service support ,
--- NOTE | 2019-12-16 17:49 | ED.DCSUM_ITS ---
- ER Visit Summary Date of Service: 12/16/19 Chief Complaint: [Cough, sore throat, fatigue] History of Present Illness: The patient is a 54 F [presents the emergency department symptoms for 3 days. Patient complains of left ear pain as well as cough and bringing up some green sputum at times. Patient complains of pain in her chest with cough. Patient states that she slept more than usual yesterday. She denies any fever or chills or sweats. Denies sick contacts. She denies recent travel or surgery. Patient does have history of prior RI, asthma, COPD, high cholesterol, bipolar disorder, depression, PTSD, and anxiety.] Physical Examination: [HEENT-PERRLA, EOMI. Cranial nerves II through XII grossly intact. Right TM clear, left TM erythematous and dull and difficult to visualize landmarks.. Mucous membranes moist. No adenopathy. No pharyngeal erythema. Uvula in the midline without trismus. Cardiovascular-regular rate and rhythm without murmur or ectopy Lungs-good aeration bilaterally. Patient has some faint expiratory wheezes noted bilaterally. No accessory muscle use or retractions. No conversational dyspnea. Abdomen-normoactive bowel sounds, soft, nontender, no rebound or rigidity, no peritoneal signs. Extremities-intact ?4, normal range of motion, normal pulses, atraumatic] Test Results: [Chest x-ray obtained read by myself as no acute disease process official report from radiology pending.] Emergency Department Course and Treatment: [Patient will be given a DuoNeb aerosol. Patient will start prednisone 40 mg p.o. Patient will be started on Levaquin as she has multiple drug allergies and she states that only 2 antibiotics are out there that she can take in 1 of them being Levaquin. Patient will be given a prescription for albuterol solution as she does have a nebulizer at home.] Treatment Plan: [Follow-up with primary care physician in 3 to 5 days. Patient advised to return if increasing shortness of breath or conditions worsen anyway.] Disposition: [Discharged home in stable condition.] Impression: [Asthmatic bronchitis Left otitis media] This note was generated with [employer] software. It may contain incorrect words, spelling, and punctuation that were not noted in review of the chart prior to signing ED Disposition - Plan for ED Patient: Referrals: Sofy Richter DO [Primary Care Provider] -
--- NOTE | 2019-12-16 17:51 | DCINST.ED_ITS ---
ED Disposition - Plan for ED Patient: Instructions: BRONCHITIS, Antiobiotic Treatment (Adult), BRONCHITIS with Wheezing (Adult), OTITIS MEDIA, Abx Tx (Adult) Prescriptions: Prednisone [Deltasone] 20 mg PO BID #10 tab Transmission Status: Pending to [id number] levoFLOXacin tablet [Levaquin tablet] 750 mg PO DAILY #7 tab Transmission Status: Pending to [facility]/pharmacy #[id number] Albuterol Aerosols [Ventolin Aerosols] 2.5 mg INHALATION Q4HWA.RT #25 vial.neb. Transmission Status: Pending to [id number] Referrals: Sofy Richter DO [Primary Care Provider] -
--- NOTE | 2019-12-16 17:51 | ED.DEP ---
ED Disposition - Plan for ED Patient: Instructions: BRONCHITIS, Antiobiotic Treatment (Adult), BRONCHITIS with Wheezing (Adult), OTITIS MEDIA, Abx Tx (Adult) Prescriptions: Prednisone [Deltasone] 20 mg PO BID #10 tab Transmission Status: Pending to [id number] levoFLOXacin tablet [Levaquin tablet] 750 mg PO DAILY #7 tab Transmission Status: Pending to [facility]/pharmacy #[id number] Albuterol Aerosols [Ventolin Aerosols] 2.5 mg INHALATION Q4HWA.RT #25 vial.neb. Transmission Status: Pending to [id number] Referrals: Sofy Richter DO [Primary Care Provider] -
[2019-12-16 17:54] VITALS: O2SAT 97
[2019-12-16] MEDS: predniSONE 20 MG Tablet 40 MG PO (17:55)
[2019-12-16] MEDS: levoFLOXacin 750 MG Tablet PO (17:55)
[2019-12-16] MEDS: Ipratropium/Albuterol Sulfate 3 ML AMPUL.NEB INHALATION (18:04)
[2019-12-16 18:05] VITALS: PULSE 80; RESP 18
[2019-12-16 18:25] VITALS: BP 116/67; PULSE 81; RESP 16; O2SAT 92
== END 2019-12-16 19:07 | disposition home or self-care (01) ==
LOC: ED 17:53
PROVIDERS: Emergency Provider Emergency Medicine; PCP Family Medicine
DX: H66.92 Otitis media, unspecified, left ear (principal); J44.9 Chronic obstructive pulmonary disease, unspecified; I25.2 Old myocardial infarction; E78.00 Pure hypercholesterolemia, unspecified; F43.10 Post-traumatic stress disorder, unspecified; F31.9 Bipolar disorder, unspecified; Z79.51 Long term (current) use of inhaled steroids; Z79.82 Long term (current) use of aspirin; Z79.899 Other long term (current) drug therapy
CPT/HCPCS: 71045; 93005; 94640; 94760; 99283

== ENCOUNTER → 2020-04-05 | Outpatient (CLI) | payer MEDICAID, SELFPAY ==
[2020-01-20 08:56] VITALS: BMI 31.9
[2020-04-05 12:52] VITALS: PULSE 105; PULSE 108; PULSE 110; PULSE 112; PULSE 115; PULSE 95; PULSE 96; O2SAT 91; O2SAT 92; O2SAT 93; O2SAT 94; O2SAT 95
--- NOTE | 2020-04-05 12:55 | CPS ---
Patients states she gets shaky and SOB she felt that way when walking if her SPO2 drops below 91%. She was able to carry a conversation on with me the whole test with no difficulty
--- NOTE | 2020-04-06 13:30 | PCM.PSN.6M ---
PSN 6 Minute Walk Test - 6 Minute Walk Test 6 Minute Walk Test: 6 Minute Walk Test PSN:6-Minute Walk Test Start: 04/05/20 12:52 Freq: Status: Active Protocol: [id number].6MINW Document 04/05/20 12:52 FR (Rec: 04/05/20 12:58 FR [id number]) 6 Minute Walk Test Date Performed 04/05/20 Time Performed 12:30 Height 5 ft 3 in Weight: 180 lb Weight in Pounds 180.[address]: Sarah Pat Assistive device used: None Pre-test Oxygen Delivery Method Room Air Pulse Ox (%) 95 Pulse Rate (60-100 beats/min) 95 Dyspnea Larry Scale (0-10) 5 Exertion Larry Scale (6-20) 8 1st minute Oxygen Delivery Method Room Air Pulse Ox (%) 91 Pulse Rate (60-100 beats/min) 112 H 2nd minute Oxygen Delivery Method Room Air Pulse Ox (%) 91 Pulse Rate (60-100 beats/min) 115 H 3rd minute Oxygen Delivery Method Room Air Pulse Ox (%) 92 Pulse Rate (60-100 beats/min) 110 H 4th minute Oxygen Delivery Method Room Air Pulse Ox (%) 92 Pulse Rate (60-100 beats/min) 105 H Reported Symptoms Increased Work of Breathing 5th minute Oxygen Delivery Method Room Air Pulse Ox (%) 93 Pulse Rate (60-100 beats/min) 115 H Number of Rests Taken 1 Reported Symptoms Increased Work of Breathing 6th minute Oxygen Delivery Method Room Air Pulse Ox (%) 94 Pulse Rate (60-100 beats/min) 108 H Dyspnea Larry Scale (0-10) 5 Exertion Larry Scale (6-20) 11 Reported Symptoms Increased Work of Breathing Post-test Oxygen Delivery Method Room Air Pulse Ox (%) 94 Pulse Rate (60-100 beats/min) 96 Full Laps Walked 12 Partial Lap, Number of Tiles Walked 45 Total Distance Walked (ft) 753 04/05/20 12:55 Cardiopulmonary Services by Dorys Mota Patients states she gets shaky and SOB she felt that way when walking if her SPO2 drops below 91%. She was able to carry a conversation on with me the whole test with no difficulty Initialized on 04/05/20 12:55 - END OF NOTE - Interpretation Interpretation: The patient ambulated 753 feet over the course of 6 minutes beginning on room air without assistive devices or breaks. Pretesting oxygen saturation was noted to be 95% on room air. With ambulation, the evette oxygen saturation was 91%. Although there was evidence of impaired walk distance, there was no significant exertional oxygen desaturation. - Recommendations Recommendations: There is no indication for the use of supplemental oxygen at this time.
== END | disposition home or self-care (01) ==
LOC: PSN 12:20
PROVIDERS: PCP Family Medicine; Referring Provider Nurse Practitioner Acute Care; Visit Provider Nurse Practitioner Acute Care
DX: J44.9 Chronic obstructive pulmonary disease, unspecified (principal)
CPT/HCPCS: 94618

== ENCOUNTER → 2020-04-08 | Outpatient (CLI) | payer MEDICAID, SELFPAY ==
[2020-01-20 08:56] VITALS: BMI 31.9
--- NOTE | 2020-04-09 09:27 | PFT ---
INTRODUCTION: The patient is a 55-year-old female that presents for pulmonary function studies secondary to a diagnosis of COPD. Respiratory therapy reports good patient effort. Bronchodilators were used during testing. INTERPRETATION: Forced expiration spirometry demonstrates the presence of a moderately severe large airways obstructive ventilatory defect. There was a significant response to aerosolized bronchodilators. Spirograms are of good quality and do not plateau indicating slow emptying of the lungs. Body plus tomography was performed and reveals an elevated RV to 154% of predicted, indicative of underlying air trapping. Diffusing capacity by single breath CO is reduced at 52% of predicted. IMPRESSION: Partially reversible moderately severe large airways obstructive ventilatory defect with associated air trapping and symmetric reduction in diffusing capacity.
== END | disposition home or self-care (01) ==
LOC: PSN 12:51
PROVIDERS: PCP Family Medicine; Referring Provider Nurse Practitioner Acute Care; Visit Provider Nurse Practitioner Acute Care
DX: J44.9 Chronic obstructive pulmonary disease, unspecified (principal)
CPT/HCPCS: 94060; 94726; 94729

== ENCOUNTER → 2020-04-13 | Outpatient (CLI) | payer MEDICAID, SELFPAY ==
[2020-01-20 08:56] VITALS: BMI 31.9
[2020-04-13 13:45] VITALS: BMI 31.9
--- NOTE | 2020-04-13 14:47 | ECHOCS_ITS ---
Reason For Study: Dyspnea/SOB Procedure This was a 2D Doppler, Color Flow transthoracic echocardiogram. The study was technically difficult. Contrast injection was performed. Exam performed in department. Left Ventricle Normal LV size. Left ventricular systolic function is normal. The estimated ejection fraction is 65 %. Transmitral doppler flow suggestive of impaired relaxation of left ventricle. No regional wall motion abnormalities noted. Right Ventricle Normal RV size. Normal systolic function. Atria Normal left atrium. Normal right atrium. No doppler evidence for ASD. Mitral Valve There is no mitral annular calcification. Normal mitral valve. Trivial mitral valve insufficiency. Tricuspid Valve Normal tricuspid valve. Trivial tricuspid valve insufficiency. Unable to estimate RV systolic pressure/pulmonary artery pressure due to technically difficult study. Aortic Valve The aortic valve is not well visualized. Pulmonic Valve The pulmonic valve is not well visualized. Great Vessels The aortic root is not well visualized. Pericardium/Pleural No pericardial effusion. Medication 22 gauge I.V. with prn adaptor inserted into right arm. Diluted definity 3ml given slow IV push to enhance endocardial definition. MMode/2D Measurements & Calculations LVIDd: 3.8 cm IVSd: 0.82 cm LA dimension: 2.7 cm LVIDs: 2.6 cm LVPWd: 1.2 cm FS: 29.8 % LAV(MOD-sp4): 20.7 ml LA A4 area: 10.2 cm2 Time Measurements MV dec time: 0.30 sec Doppler Measurements & Calculations MV E max gregory: 57.6 cm/sec Lat Peak E' Gregory: 7.3 cm/sec Med Peak E' Gregory: 7.3 cm/sec MV A max gregory: 78.6 cm/sec E/E' lat: 7.9 E/E' med: 7.9 MV E/A: 0.73 MV V2 max: 83.0 cm/sec MV P1/2t max gregory: 66.3 cm/sec Ao V2 max: 92.6 cm/sec MV max P.8 mmHg MV P1/2t: 90.2 msec Ao max P.4 mmHg MV V2 mean: 48.1 cm/sec MV dec slope: 215.3 cm/sec2 MV mean P.1 mmHg MV V2 VTI: 18.9 cm MVA(P1/2t): 2.4 cm2 LV V1 max: 79.6 cm/sec PA V2 max: 83.8 cm/sec LV V1 max P.5 mmHg Interpretation Summary The study was technically difficult. Contrast injection was performed. Left ventricular systolic function is normal. The estimated ejection fraction is 65 %. Trivial mitral valve insufficiency. Trivial tricuspid valve insufficiency. Unable to estimate RV systolic pressure/pulmonary artery pressure due to technically difficult study. Transmitral doppler flow suggestive of impaired relaxation of left ventricle Ordering Physician: Sofy Richter Referring Physician: Sofy Richter Performed By: Rogers Lujan RCS
== END | disposition home or self-care (01) ==
LOC: CVS 14:46
PROVIDERS: PCP Family Medicine; Referring Provider Family Medicine; Visit Provider Family Medicine
DX: I34.1 Nonrheumatic mitral (valve) prolapse (principal); R06.00 Dyspnea, unspecified; J44.9 Chronic obstructive pulmonary disease, unspecified
CPT/HCPCS: 93306; Q9957; A4216; C8929

== ENCOUNTER → 2020-05-31 | Outpatient (CLI) | payer MEDICAID, SELFPAY ==
[2020-04-13 13:45] VITALS: BMI 31.9
[2020-05-31 15:43] LABS: Absolute Lymphocyte Count 2.49 X10^3/uL (0.83-4.51); Basophil# 0.03 X10^3/uL; Basophil% 0.5 % (0-1); Eosinophils% 1.7 % (0-5); Hematocrit 37.5 % (37-47); Hemoglobin 12.1 g/dL (12.0-15.0); Lymphocyte # 2.49 X10^3/ul (4.0); Lymphocyte % 41.6 % (19-41); Mean Corp Hgb Conc 32.3 g/dL (32-36); Mean Corpuscular Hgb 29.5 pg (27.0-32.0); Mean Corpuscular Volume 91.5 fL (81-99); Mean Platelet Vol. 11.8 fl (6.2-12.0); Monocyte# 0.34 X10^3/uL; Monocyte% 5.7 % (0-10); NRBC Flagged by Analyzer 0 % (0-5); Neutrophil # 3.01 X10^3/uL (2.7-7.7); Neutrophil % 50.2 % (47-70); Platelet Count 241 K/mm3 (150-450); RBC Distribution Width SD 40.2 fl (35.1-43.9)
[2020-05-31 15:55] LABS: Vitamin B12 399 pg/mL (211-911)
[2020-05-31 15:57] LABS: AST(SGOT) 24 U/L (15-37); Alanine Aminotransfer ALT/SGPT 24 U/L (13-56); Albumin, Serum 3.8 g/dL (3.2-5.0); Alkaline Phosphatase 135 U/L (45-117); Anion Gap 7 (5-15); BUN 14 mg/dL (7-18); BUN/Creat Ratio 19.4 RATIO (10-20); Calcium,Total 8.4 mg/dL (8.5-10.1); Chloride 106 mmol/L (98-107); Cholesterol 162 mg/dL (200); Creatinine, Serum 0.72 mg/dL (0.55-1.02); EST Glomerular Filtration Rate 90 mL/min (>60); Est Glom Filt Rate - Afr Amer 108 mL/min (>60); Free T3 3.3 pg/mL (2.18-3.98); Globulin 3.7 g/dL (2.2-4.2); Glucose 90 mg/dL (74-106); High Density Lipoprotein 56 mg/dL; Potassium 3.4 mmol/L (3.5-5.1); Protein, Total 7.5 g/dL (6.4-8.2); Sodium Level 144 mmol/L (136-145); T4 Free Direct 1.12 ng/dL (0.76-1.46); Thyroid Stim Hormone (TSH) 0.04 uIU/mL (0.358-3.74); Triglycerides 97 mg/dL; Very Low Density Lipoprotein 19 mg/dL (5-40)
[2020-06-01 07:28] LABS: SARS-COV-2 TOTAL ABS Nonreactive (Nonreactive)
== END | disposition home or self-care (01) ==
LOC: BFHLAB 12:55
PROVIDERS: PCP Family Medicine; Visit Provider Family Medicine
DX: E03.9 Hypothyroidism, unspecified (principal); R06.00 Dyspnea, unspecified; E78.5 Hyperlipidemia, unspecified; E87.6 Hypokalemia; I25.10 Atherosclerotic heart disease of native coronary artery without angina pectoris; E53.8 Deficiency of other specified B group vitamins; Z20.828 Contact with and (suspected) exposure to other viral communicable diseases
CPT/HCPCS: 36415; 80053; 80061; 82607; 84439; 84443; 84481; 85025; 86769

== ENCOUNTER → 2020-09-15 13:28 | Outpatient (CLI) | payer MEDICAID, SELFPAY ==
[2020-07-20 14:08] VITALS: BMI 33.5
[2020-09-15 15:39] LABS: Absolute Lymphocyte Count 1.91 X10^3/uL (0.83-4.51); Absolute Neutrophil Count 3.2 X10^3/uL (2.0-7.7); Basophil# 0.03 X10^3/uL; Basophil% 0.5 % (0-1); Eosinophil# 0.11 X10^3/uL; Eosinophils% 1.9 % (0-5); Hematocrit 38.8 % (37-47); Hemoglobin 12.5 g/dL (12.0-15.0); Lymphocyte # 1.91 X10^3/ul (4.0); Lymphocyte % 33.7 % (19-41); Mean Corp Hgb Conc 32.2 g/dL (32-36); Mean Corpuscular Hgb 30.1 pg (27.0-32.0); Mean Corpuscular Volume 93.5 fL (81-99); Mean Platelet Vol. 11.9 fl (6.2-12.0); Monocyte# 0.44 X10^3/uL; Monocyte% 7.8 % (0-10); NRBC Flagged by Analyzer 0 % (0-5); Neutrophil # 3.16 X10^3/uL (2.7-7.7); Neutrophil % 55.7 % (47-70); Platelet Count 267 K/mm3 (150-450); RBC Distribution Width CV 12.3 % (11.6-14.6); RBC Distribution Width SD 42.3 fl (35.1-43.9); Red Blood Count 4.15 M/mm3 (4.2-5.4); White Blood Count 5.7 K/mm3 (4.4-11.0)
[2020-09-15 15:54] LABS: Vitamin B12 491 pg/mL (211-911)
[2020-09-15 16:07] LABS: AST(SGOT) 29 U/L (15-37); Alanine Aminotransfer ALT/SGPT 28 U/L (13-56); Albumin, Serum 3.8 g/dL (3.2-5.0); Alkaline Phosphatase 149 U/L (45-117); Anion Gap 6 (5-15); BUN 12 mg/dL (7-18); BUN/Creat Ratio 15.2 RATIO (10-20); Calcium,Total 8.8 mg/dL (8.5-10.1); Chloride 106 mmol/L (98-107); Cholesterol 150 mg/dL (200); Creatinine, Serum 0.79 mg/dL (0.55-1.02); EST Glomerular Filtration Rate 80 mL/min (>60); Est Glom Filt Rate - Afr Amer 97 mL/min (>60); Free T3 3.3 pg/mL (2.18-3.98); Globulin 3.8 g/dL (2.2-4.2); Glucose 130 mg/dL (74-106); High Density Lipoprotein 51 mg/dL; Potassium 3.5 mmol/L (3.5-5.1); Protein, Total 7.6 g/dL (6.4-8.2); Sodium Level 141 mmol/L (136-145); T4 Free Direct 1.27 ng/dL (0.76-1.46); Thyroid Stim Hormone (TSH) 0.02 uIU/mL (0.358-3.74); Triglycerides 141 mg/dL; Very Low Density Lipoprotein 28 mg/dL (5-40)
== END ==
PROVIDERS: PCP Family Medicine; Visit Provider Family Medicine
DX: E03.9 Hypothyroidism, unspecified (principal); R06.00 Dyspnea, unspecified; E78.5 Hyperlipidemia, unspecified; E87.6 Hypokalemia; I25.10 Atherosclerotic heart disease of native coronary artery without angina pectoris; E53.8 Deficiency of other specified B group vitamins
CPT/HCPCS: 36415; 80053; 80061; 82607; 84439; 84443; 84481; 85025

== ENCOUNTER → 2020-11-17 14:56 | Outpatient (CLI) | payer MEDICAID, SELFPAY ==
[2020-11-17 17:19] LABS: Vitamin B12 564 pg/mL (211-911); Vitamin D,25 Hydroxy 26.6 ng/mL
[2020-11-17 17:23] LABS: ALB/GLOB Ratio 0.9 RATIO (0.9-2.4); AST(SGOT) 29 U/L (15-37); Alanine Aminotransfer ALT/SGPT 35 U/L (13-56); Albumin, Serum 3.7 g/dL (3.2-5.0); Alkaline Phosphatase 150 U/L (45-117); Anion Gap 4 (5-15); BUN 26 mg/dL (7-18); Chloride 103 mmol/L (98-107); Creatinine, Serum 0.84 mg/dL (0.55-1.02); EST Glomerular Filtration Rate 75 mL/min (>60); Est Glom Filt Rate - Afr Amer 91 mL/min (>60); Free T3 2.3 pg/mL (2.18-3.98); Glucose 111 mg/dL (74-106); Protein, Total 7.7 g/dL (6.4-8.2); Sodium Level 140 mmol/L (136-145); T4 Free Direct 0.97 ng/dL (0.76-1.46); Thyroid Stim Hormone (TSH) 0.16 uIU/mL (0.358-3.74)
== END ==
PROVIDERS: PCP Family Medicine; Visit Provider Family Medicine
DX: E55.9 Vitamin D deficiency, unspecified (principal); E53.8 Deficiency of other specified B group vitamins; E03.9 Hypothyroidism, unspecified
CPT/HCPCS: 36415; 80053; 82306; 82607; 84439; 84443; 84481

== ENCOUNTER 2020-12-14 14:00 | Outpatient (RCR) | payer MEDICAID, SELFPAY ==
--- NOTE | 2020-10-13 14:15 | HP.PTEVAL ---
Patient's Visit Information ALEXEI FOWLER is a 55 year old F referred to Physical Therapy by Dr. Iglesia Falcon DO with a diagnosis of L shoulder adhesive capsulitis. Date of Evaluation: 10/13/20 Physical Therapist: Justin Solorio, PT, ATC - Visit Plan Frequency: 2-3x /Week Duration: 4-6 Weeks Plan: L shoulder PROM/mobs, stretching, strengthening of rotator cuff, scap stab ex's, UBE, and HEP - Subjective Pt reports she fell into a wall in 2018 which resulted in L shoulder pain. Pt reports she has been treated for her pain over the years which did help, but pt notes her pain came back for unknown reasons several months ago and has progressively worsened. Pt notes she has had 2 cortisone injections in the L shoulder which have not helped. Pt reports she did have an MRI which revealed a small tear in her L rotator cuff. Pt notes she is R hand dominant. Pt reports sleep difficulty at this time secondary to pain. Pt notes increased pain with overhead reaching and reaching behind her. Pt reports L shoulder pain is 8/10 at rest, 10/10 at worst (when she wakes up in the morning) - Pain L shoulder Pain Intensity (Out of 10): 8 Pain Intensity Range: 10 - Objective Neuro: B UE sensation is WNL to light touch. B bicepital reflex= 2/3. Palpation: Pt is very sore throughout the distribution of the supraspinatus. No obvious deformity at this time. ROM: R shoulder flex= 180, abd= 180, ER= 65, IR WNL. L shoulder flex= 105, abd= 105, ER= 65, IR severely limited. MMT: R shoulder 5/5 throughout. L shoulder flex 3-/5 throughout and painful. Special tests: Pos HK and impingement tests, pos empty can - Goals Goal 1:: Decrease L shoulder pain x 50% to aid with sleep Goal Time Frame: 4-6 Weeks Goal 2:: Increase L shoulder strength x 1 grade to aid with IADL's Goal Time Frame: 4-6 Weeks Goal 3:: Increase L shoulder flex and abd x 30 degrees to aid with overhead activity Goal Time Frame: 4-6 Weeks Goal 4:: I with HEP Goal Time Frame: 4-6 Weeks - Rehabilitation Potential Physical Therapy Diagnosis: L shoudler pain, limited ROM, and weakness secondary to L shoulder rotator cuff syndrome Rehabilitation Potential: Good - Anticipated Interventions Patient/Client Instruction: Educate patient on: Condition, Plan of Care For the Purpose of:: To improve self management Therapeutic Exercise to Include: Strength training, Body mechanics, Postural training, Flexibilty training, Passive ROM, Active ROM, Vaibhav Exercises For the Purpose of:: To decrease pain, To increase ROM, To improve muscle performance and motor function Thermo therapy (hot pack): Yes For the Purpose of:: To decrease pain Thank you for the opportunity to evaluate your patient. For Medicare and Medicare HMO plans, please review the plan of care and approve it. It will need to be FAXED BACK to us at [phone] for Medicare purposes. For Medicare only, by signing this I certify the plan of care. Please let me know if there are questions or concerns regarding this plan of care. Physician Signature: Date:
--- NOTE | 2020-11-04 13:43 | HP.PTREVAL ---
Dr. Iglesia Falcon, DO, It has been my pleasure to treat ALEXEI FOWLER over the last 5 visits for L shoulder adhesive capsulitis. Please see the progress note below for an update on the physical therapy plan of care! Subjective: Pt reports her pain is not getting better, maybe getting a little worse. Objective/Function: L shoulder pain is currently 9/10. L shoulder AROM: flex= 98, abd= 98, ER= 0, IR is moderately limited. L shoulder MMT: 3-/5 throughout. Pt is not progressing with strength or pain, and is regressing in ROM Plan Plan: Hold PT, RTD for recheck Goals Goal 1:: Decrease L shoulder pain x 50% to aid with sleep Goal Time Frame: 4-6 Weeks Goal Progress: Not Progressing Goal 2:: Increase L shoulder strength x 1 grade to aid with IADL's Goal Time Frame: 4-6 Weeks Goal Progress: Not Progressing Goal 3:: Increase L shoulder flex and abd x 30 degrees to aid with overhead activity Goal Time Frame: 4-6 Weeks Goal Progress: Not Progressing Goal 4:: I with HEP Goal Time Frame: 4-6 Weeks Goal Progress: Progressing Anticipated Interventions Patient/Client Instruction: Educate patient on: Condition, Plan of Care For the Purpose of:: To improve self management Therapeutic Exercise to Include: Strength training, Body mechanics, Postural training, Flexibilty training, Passive ROM, Active ROM, Vaibhav Exercises For the Purpose of:: To decrease pain, To increase ROM, To improve muscle performance and motor function Thermo therapy (hot pack): Yes For the Purpose of:: To decrease pain Please do not hesitate to contact me at [phone] by phone or if you have questions or concerns regarding this new plan of care! Sincerely, Justin Solorio, PT, ATC
--- NOTE | 2020-11-23 11:55 | HP.PTEVAL2_ITS ---
Patient's Visit Information ALEXEI FOWLER is a 55 year old F referred to Physical Therapy by Dr. Iglesia Falcon DO with a diagnosis of cervical spasm. Date of Evaluation: 11/23/20 Physical Therapist: Justin Solorio, PT, ATC - Visit Plan Frequency: 1x/Week Duration: 1 Week Plan: Skilled PT is not necessary at this time. Discharge - Subjective Subjective: Pt reports she went to the [facility] about a week ago for a recheck for h er L shoulder. Pt reports during the visit, she was diagnosed with having neck pain. Pt reports she may have had a little pain on that date, but has not had any pain since. Pt reports she is only here because her doctor told her to get it checked out. Pt reports no tingling or numbness in UE's this date. Pt reports sleep difficulty at this time, but reports it is due to her L shoulder pain. Pt reports she only has neck pain if she lays on it wrong. Pt reports she has 0/10 pain in her cervical spine at this time. - Objective Objective: Neuro: B UE sensation is WNL to light touch. B bicepital reflex= 2/3. ROM: retraction and protraction are moderately limited. All other ROM is WNL. MMT: L shoulder is 3/5 and painful with all testing. R shoulder is 5/5 throughout. Repeated movements: No effect with protraction, retraction, flexion and extension. Special testing: all tests negative - Goals Goal 1:: N/A - Rehabilitation Potential Physical Therapy Diagnosis: Pt had neck pain in the past secondary to cervical spine spasms Rehabilitation Potential: Questionable - Anticipated Interventions Patient/Client Instruction: Educate patient on: Condition, Plan of Care For the Purpose of:: To improve self management Thank you for the opportunity to evaluate your patient. For Medicare and Medicare HMO plans, please review the plan of care and approve it. It will need to be FAXED BACK to us at [phone] for Medicare purposes. For Medicare only, by signing this I certify the plan of care. Please let me know if there are questions or concerns regarding this plan of care. Physician Signature: Date:
--- NOTE | 2021-04-14 10:55 | HP.PT.NRP ---
ALEXEI FOWLER was seen in my office for initial evaluation on 10/13/20. The following Plan of Care was established for this patient: Initial Frequency: 2-3x /Week Initial Duration: 4-6 Weeks Patient/Client Instruction: Educate patient on: Condition, Plan of Care For the Purpose of:: To improve self management Therapeutic Exercise to Include: Strength training, Body mechanics, Postural training, Flexibilty training, Passive ROM, Active ROM, Vaibhav Exercises For the Purpose of:: To decrease pain, To increase ROM, To improve muscle performance and motor function Thermo therapy (hot pack): Yes For the Purpose of:: To decrease pain This patient was last seen in our office . Pertinent comments regarding their Physical therapy will appear below: This patient was treated for 7 PT visits for L shoulder pain through the date of 12/14/20. Pt has not returned through todays date and is discontinued at this time. At this point I will be discontinuing this patient from physical therapy. I would be happy to see this patient again in the future if found appropriate by the physician. Thank you! Justin Solorio, PT, ATC
== END 2020-12-14 19:00 | disposition home or self-care (01) ==
LOC: PT 14:00
PROVIDERS: PCP Family Medicine; Referring Provider Orthopaedic Surgery; Visit Provider Orthopaedic Surgery
DX: M75.02 Adhesive capsulitis of left shoulder (principal); R25.2 Cramp and spasm
CPT/HCPCS: 97110; 97161; 97164

== ENCOUNTER → 2021-03-03 | Outpatient (CLI) | payer MEDICAID, SELFPAY ==
[2021-02-03 15:05] VITALS: BMI 35.2
--- NOTE | 2021-03-03 13:42 | CT_ITS ---
STUDY: LOW DOSE CT LUNG CANCER SCREENING REASON FOR EXAM: Female, 56 years old. Smoker and gt; 30 pack years RADIATION DOSAGE (If Supplied By Facility): CTDIvol = ( 3.02 ) mGy, DLP = ( 98.92 ) mGycm TECHNIQUE: No contrast was administered. Low dose technique was utilized (average mAS-38 and kVp 120). 1.25 mm axial source images with a slice interval of 1.25-mm were reconstructed in lung windows. 2.5 mm axial source images with a slice interval of 2.5-mm were reconstructed in lung windows. 5.0 mm axial source images with a slice interval of 5.0-mm were reconstructed in soft tissue windows. Nodule measured using lung windows on PACS and/or independent workstation with automated measurement of minimum and maximum diameter. Nodule measurement reported as average diameter rounded to the nearest whole number. Growth is defined as an increase ins size of greater than 1.5 mm. COMPARISON: None. NODULES: No suspicious nodules are seen. Emphysema: Diffuse emphysematous changes with bullous formation in the upper lobes. Endobronchial lesion: None Aorta: Mild atherosclerotic calcification of the aortic arch. Coronary arteries: Coronary artery calcification. Heart: Unremarkable Pulmonary artery: Unremarkable Mediastinal nodes: Small benign appearing mediastinal lymph nodes. Other chest and abdominal findings: CT/Low Dose CT Lung Screening IMPRESSION: Lung-RADS category 2 - Continue annual screening with LDCT in 12 months. IMPORTANT NOTES FOR USE: ACR Lung-RADS Version 1.1 Assessment Categories Release Date: 2018 Category: Coded 0-4 bases on nodule(s) with highest degree of suspicion. Negative screen is defined as categories 1 and 2; a positive screen is defined as categories 3 and 4. Category 3 and 4A nodules that are unchanged on interval CT should be coded as category 2, and individuals returned to screening in 12 months. Category 4X: Category 3 or 4 nodules with additional imaging findings that increase the suspicion of lung cancer, such as spiculation, GGN that doubles in size in 1 year, enlarged lymph notes, etc. Category Modifiers: S (significant finding unrelated to lung cancer) Electronically Signed: Crow Gibson MD at 15:32 EDT , Service support ,
== END | disposition home or self-care (01) ==
LOC: CT 13:39
PROVIDERS: PCP Family Medicine; Referring Provider Nurse Practitioner Acute Care; Visit Provider Nurse Practitioner Acute Care
DX: F17.210 Nicotine dependence, cigarettes, uncomplicated (principal); Z12.2 Encounter for screening for malignant neoplasm of respiratory organs
CPT/HCPCS: 71271

== ENCOUNTER → 2021-07-19 | Outpatient (CLI) | payer MEDICAID, SELFPAY | END | disposition home or self-care (01) | PROVIDERS: PCP Family Medicine; Referring Provider Physician Assistant; Visit Provider Physician Assistant | DX: J02.9 Acute pharyngitis, unspecified (principal) | CPT/HCPCS: 87635; U0005; U0003 ==

== ENCOUNTER 2021-09-20 13:41 | Emergency (ER) | payer MEDICAID, SELFPAY ==
[2021-09-20 13:43] VITALS: BP 138/104; PULSE 118; RESP 18; TEMP 38.2; O2SAT 96; BMI 30.7
--- NOTE | 2021-09-20 13:51 | RAD_ITS ---
STUDY: X-RAY CHEST REASON FOR EXAM: Female, 56 years old. COUGH TECHNIQUE: Single AP portable view of the chest. COMPARISON: Comparison is made with prior study dated 12/16/2019. FINDINGS: Hyperinflation. The lungs are clear. There is no demonstrated pleural abnormality. Normal size heart. Normal mediastinum and ashli. Normal visualized pulmonary arteries. Normal visualized aortic arch and descending thoracic aorta. Normal visualized thoracic spine. Normal visualized ribs, clavicles, and shoulders. There is no demonstrated abnormality of the visualized soft tissue structures of the upper abdomen. RAD/Chest 1 View IMPRESSION: Hyperinflation. The lungs are clear. Electronically Signed: Crow Gibson MD at 15:00 EST , Service support ,
--- NOTE | 2021-09-20 16:50 | EDS_ITS ---
HPI History of Present Illness Chief Complaint: Shortness of Breath Detail of Chief Complaint: Cough, documented temperature 102.0 ?F, shaking chills with myalgias Informant: patient Onset/Context/Timing Onset: Yesterday Context: Sudden Onset Timing: Continuous Quality: Respiratory symptoms Location: Respiratory Current Severity: Mild Maximum Severity: Moderate Worsened by: Exertion Relieved by: Nothing Associated Symptoms Associated Symptoms: Headache Narrative Narrative: Patient is a 56-year-old woman who presents with respiratory symptoms started yesterday with a document temperature 102.0 ?F with rigors. She has a 34-year-old daughter and 26-year-old son who lives with her. Neither 1 is ill. She has not been vaccinated. She denies loss of taste or smell. She does complain of bifrontal headache. She denies photophobia, neck pain or neck stiffness. She does report mild nasal congestion. She denies sore throat. Denies ear pain. She states it hurts when she coughs over the right side. She denies history of VTE. Denies leg pain, swelling discoloration. She denies rash. She denies nausea, vomiting or diarrhea. She denies dysuria, frequency, urgency or hematuria. Prior similar symptoms: No Recent Illness/Hospitalization: No PFSH PFS Medical History Acute diastolic (congestive) heart failure (04/18/18) Acute on chronic respiratory failure with hypoxia and hypercapnia Arthritis Asthma Asthma-COPD overlap syndrome Atherosclerosis of coronary artery of [place] heart without angina pectoris Bipolar disorder Bronchitis Chronic back pain Chronic neck and back pain COPD (chronic obstructive pulmonary disease) Difficulty balancing Diverticula of colon Encounter for screening for COVID-19 GERD (gastroesophageal reflux disease) History of non-ST elevation myocardial infarction (NSTEMI) (04/16/18) History of sepsis Hypersomnia, unspecified Hypoglycemia Hypokalemia Hypothyroidism Limb weakness Obesity Paroxysmal supraventricular tachycardia Severe headache Stomach ulcer TMJ (temporomandibular joint syndrome) Urinary incontinence Home Medications lamotrigine 200 mg PO BID 04/15/18 [History Last Taken Unknown] aspirin 81 mg PO DAILY tab.chew 04/21/18 [Rx Last Taken Unknown] rosuvastatin 40 mg tablet 40 mg PO QDAY 05/24/18 [History Last Taken Unknown] diazepam 25 mg PO BID PRN PRN 06/22/18 [History Last Taken Unknown] fluoxetine 40 mg PO BID 06/22/18 [History Last Taken Unknown] pxrucnasac-lzhepwqjnvpbx-ddfwmzew 50 mg-325 mg-40 mg tablet 1 tab PO PRN PRN 30 Days #90 tab 03/04/19 [History Last Taken Unknown] promethazine 25 mg tablet 1 tab PO PRN PRN 30 Days #90 tab 03/04/19 [History Last Taken Unknown] ibuprofen 600 mg tablet 600 mg PO TID PRN #42 tab 09/28/20 [Rx Last Taken Un known] atenolol 25 mg tablet 25 mg PO DAILY #90 tab 11/12/20 [Rx Last Taken Unknown] cyclobenzaprine 10 mg tablet 20 mg PO Q6H PRN tab 02/03/21 [History Last Taken Unknown] furosemide 20 mg tablet 20 mg PO DAILY PRN tab 02/03/21 [History Last Taken Unknown] levothyroxine 112 mcg tablet 112 mcg PO DAILY tab 02/03/21 [History Last Taken Unknown] pantoprazole 40 mg tablet,delayed release 40 mg PO DAILY tab 02/03/21 [History Last Taken Unknown] nystatin 100,000 unit/mL oral suspension 5 ml MUCOUS MEMBRANE TID #250 ml 04/18/21 [Rx Last Taken Unknown] albuterol sulfate 2.5 mg INHALATION Q4HWA.RT #25 vial.neb. 05/03/21 [Rx Last Taken Unknown] albuterol sulfate 90 mcg/actuation aerosol inhaler 2 puff INHALATION Q4H PRN PRN #1 inhaler 05/03/21 [Rx Last Taken Unknown] budesonide-formoterol HFA 160 mcg-4.5 mcg/actuation aerosol inhaler 2 puff INHALATION BID #10.2 g 05/03/21 [Rx Last Taken Unknown] prednisone 10 mg tablet 10 mg PO QDAY #30 tab 05/03/21 [Rx Last Taken Unknown] dexamethasone 4 mg tablet 4 mg PO DAILY #5 tab 07/19/21 [Rx Last Taken Unknown] fluticasone propionate 50 mcg/actuation nasal spray,suspension 2 spray INTRANASAL DAILY #16 g 08/11/21 [Rx Last Taken Unknown] ciprofloxacin HCl 500 mg PO BID #14 tablet 09/20/21 [Rx Last Taken Unknown] Allergy/AdvReac Type Severity Reaction Status Date / Time amoxicillin Allergy Severe Shortness Verified 09/20/21 13:43 of breath azithromycin Allergy Severe Shortness Verified 09/20/21 13:43 of breath clindamycin Allergy Severe Shortness Verified 09/20/21 13:43 of breath doxycycline Allergy Severe Shortness Verified 09/20/21 13:43 of breath erythromycin lactobionate Allergy Severe Shortness Verified 09/20/21 13:43 [From Erythrocin] of breath Penicillins Allergy Severe Shortness Verified 09/20/21 13:43 of breath Sulfa (Sulfonamide Allergy Severe Shortness Verified 09/20/21 13:43 Antibiotics) of breath sulfamethoxazole Allergy Severe Shortness Verified 09/20/21 13:43 [From Bactrim] of breath trimethoprim [From Bactrim] Allergy Severe Shortness Verified 09/20/21 13:43 of breath meloxicam [From Mobic] Allergy Chest Verified 09/20/21 13:43 tightness tramadol Allergy Unknown Verified 09/20/21 13:43 codeine AdvReac Nausea/Vom/ Verified 09/20/21 13:43 [From Tylenol-Codeine #3] Diarrhea terbutaline [From Brethine] AdvReac Other Verified 09/20/21 13:43 ANITHISTAMINES Allergy Unknown Uncoded 09/20/21 13:43 Family History Mother Hypertension Pulmonary embolism Psychiatric care Father Lung cancer Grandmother Breast cancer Sister Asthma Seizures Psychiatric care Depression Son Depression Psychiatric care ADHD Daughter Depression Psychiatric care Bipolar 1 disorder Surgical History History of appendectomy History of section History of cholecystectomy History of dilatation and curettage History of endometrial ablation History of left heart catheterization (04/18/18) History of left oophorectomy hx of throat biopsy Social History (Updated 09/20/21 @ 16:[address] Ventura Baez MD) household members: children Smoking Status: Former smoker Tobacco: How many years used: 40 how long ago did patient quit smokin, 1.5ppd second hand exposure: Yes substance use type: does not use ROS ROS ED Constitutional Constitutional ED: Reports chills, fever(s) and sweats; Denies subjective Eyes Eyes: Denies blurry vision, change in vision or diplopia ENT ENT ED: Reports rhinorrhea; Denies ear pain or sore throat Cardiovascular Cardiovascular: Denies chest pain, orthopnea, palpitations, paroxysmal nocturnal dyspnea or racing heartbeat Respiratory/Chest Respiratory/Chest: Reports cough, dyspnea and dyspnea on exertion; Denies orthopnea, paroxysmal nocturnal dyspnea or sputum Gastrointestinal Gastrointestinal: Denies abdominal pain, diarrhea, nausea or vomiting Genitourinary Genitourinary ED: Denies dysuria, hematuria or urinary frequency Musculoskeletal Musculoskeletal: Reports arthralgias and myalgias; Denies back pain or neck pain Integumentary Denies rash Neurologic Neurologic: Reports headache(s) and weakness; Denies paresthesias Psychiatric Psychiatric: Denies anxiety or depression Endocrine Endocrinology: Denies polydipsia, polyphagia or polyuria EXAM Physical Exam Const Vital Signs: 09/20/21 13:43 09/20/21 17:39 09/20/21 17:47 Temperature 100.7 F H Temperature Source Temporal Pulse Rate 118 H 109 H Respiratory Rate 18 19 H Respiratory Effort Normal Non-Labored Respiratory Depth Normal Respiratory Pattern Normal Blood Pressure 138/104 H 119/50 L Blood Pressure Mean 115 73 Pulse Ox 96 92 Oxygen Delivery Method Room Air Room Air Room Air 09/20/21 20:13 Temperature Temperature Source Pulse Rate 93 Respiratory Rate 16 Respiratory Effort Respiratory Depth Respiratory Pattern Blood Pressure 101/56 L Blood Pressure Mean 71 Pulse Ox 94 Oxygen Delivery Method Room Air Positive well nourished, well developed, obese and unkempt; Negative for cachectic or contractures General Appearance ED: unkempt and well developed; Negative for cachectic, contractures, cyanotic, diaphoretic, NAD or pallor Nutritional Appearance: obese; Negative for cachectic HEENT Reports TM's clear and dry mucous membranes Negative for trauma or tenderness Tympanic Membrane ED: Yes TM's clear Mouth ED: Yes dry mucous membranes Mouth: dry mucous membranes Eyes PERRL and EOMs intact bilaterally General Eye ED: Negative for pale conjunctiva or scleral icterus Neck no lymphadenopathy, supple and no JVD Chest Wall inspection of chest normal and palpation of chest normal Resp normal respiratory effort and No clear to auscultation bilaterally Effort and Inspection: Negative for pain with movement Auscultation: rales bilateral base Cardio regular rate, regular rhythm, S1 normal heart sound, S2 normal heart sound and no murmurs GI normal to inspection, nondistended, normoactive bowel sounds, non-tender and non-distended Auscultation: normoactive bowel sounds Palpation: soft Back/Spine no CVA tenderness Cervical Spine: Negative for cervical spine tenderness Thoracic Spine / Upper Back: Negative for thoracic spinal tenderness or paraspinal muscle tenderness Extremity normal to inspection General Extremety ED: Negative for edema or tenderness General Extremity: Negative for edema Neuro oriented x3 and CN's II-XII intact bilaterally Sensorium / Orientation: alert Sensory Exam: sensory level loss detected Motor Exam: strength 5/5 throughout Psych mental status grossly normal Appearance: unkempt Skin no rashes or lesions noted, no wounds and No skin turgor normal General Skin Exam: Negative for jaundice or pallor MDM MDM MDM Narrative Medical decision making narrative: His vitals are noted for her being febrile. In light of her respiratory symptoms work-up was undertaken to rule out pneumonia since her Covid test is negative. Also to evaluate for influenza since she has not been vaccinated for influenza either. She has a history of COPD. Presently she is not wheezing. Appropriate orders were initiated for sepsis work-up. Patient has a complicated urinary tract infection. Will treat with IV antibiotics and discharged with prescription for Cipro Floxin. Lab Data Attestation: I reviewed the patient's lab results. Lab results narrative: White count is elevated with mild shift and no bandemia. Comprehensive metabolic panel was marked for slight elevation glucose of 129. Lactate is normal. Urinalysis reveals a urinary tract infection. Labs: Laboratory Results - last 24 hr 09/20/21 09/20/21 09/20/21 17:25 17:25 17:25 WBC 15.0 H RBC 3.89 L Hgb 12.0 Hct 36.0 L MCV 92.5 MCH 30.8 MCHC 33.3 RDW Std Deviation 42.0 RDW Coeff of Lino 12.5 Plt Count 228 MPV 10.7 Immature Gran % (Auto) 0.700 Neut % (Auto) 82.9 H Lymph % (Auto) 10.7 L [place] % (Auto) 5.4 Eos % (Auto) 0.1 Baso % (Auto) 0.2 Absolute Neuts (auto) 12.4 H Absolute Lymphs (auto) 1.61 Nucleated RBC % 0 Sodium 137 Potassium 3.2 L Chloride 101 Carbon Dioxide 29.0 Anion Gap 7 BUN 14 Creatinine 0.96 Estim Creat Clear Calc 64.39 Est GFR (MDRD) Af Amer 77 Est GFR (MDRD) Non-Af 64 BUN/Creatinine Ratio 14.6 Glucose 129 H Lactic Acid 1.2 Calcium 9.0 Total Bilirubin 0.80 AST 21 ALT 28 Alkaline Phosphatase 136 H Total Protein 8.0 Albumin 3.6 Globulin 4.4 H Albumin/Globulin Ratio 0.8 L Urine Color Urine Clarity Urine pH Ur Specific [place] Urine Protein Urine Glucose (UA) Urine Ketones Urine Occult Blood Urine Nitrite Urine Bilirubin Urine Urobilinogen Ur Leukocyte Esterase Urine RBC Urine WBC Ur Squamous Epith Cells Urine Bacteria Urine Mucus 09/20/21 18:40 WBC RBC Hgb Hct MCV MCH MCHC RDW Std Deviation RDW Coeff of [place] Plt Count MPV Immature Gran % (Auto) Neut % (Auto) Lymph % (Auto) [place] % (Auto) Eos % (Auto) Baso % (Auto) Absolute Neuts (auto) Absolute Lymphs (auto) Nucleated RBC % Sodium Potassium Chloride Carbon Dioxide Anion Gap BUN Creatinine Estim Creat Clear Calc Est GFR (MDRD) Af Amer Est GFR (MDRD) Non-Af BUN/Creatinine Ratio Glucose Lactic Acid Calcium Total Bilirubin AST ALT Alkaline Phosphatase Total Protein Albumin Globulin Albumin/Globulin Ratio Urine Color [place] Urine Clarity Clear Urine pH 7.0 Ur Specific [place] 1.010 Urine Protein 30 H Urine Glucose (UA) Normal Urine Ketones 5 H Urine Occult Blood 10 H Urine Nitrite Negative Urine Bilirubin Negative Urine Urobilinogen 4 H Ur Leukocyte Esterase 500 H Urine RBC 0-5 SEEN Urine WBC 25-50 SEEN Ur Squamous Epith Cells 0-5 SEEN Urine Bacteria 1+ Urine Mucus 0 SEEN Radiography Chest X-Ray - ED: 1 View and Read by ED Physician (Single view portable chest x- ray reveals normal cardiac silhouette and size. Lung parenchyma is normal.) Discharge Plan Triage Chief Complaint: Shortness of Breath ED Provider: Ventura Baez Dx/Rx/DC Orders Clinical Impression: Complicated urinary tract infection Instructions: Urinary Tract Infections in Women Prescriptions: New ciprofloxacin HCl [ciprofloxacin HCl] 500 MG tablet 500 mg PO BID Qty: 14 RF: 0 No Action rosuvastatin 40 mg tablet 40 mg PO QDAY RF: 0 promethazine 25 mg tablet 1 tab PO PRN PRN (Reason: Nausea) 30 Days Qty: 90 RF: 0 jjejppddwg-ihewjinlwcyke-vbvx 50-325-40 mg tablet 1 tab PO PRN PRN (Reason: Migraine Symptoms) 30 Days Qty: 90 RF: 0 cyclobenzaprine 10 mg tablet 20 mg PO Q6H PRNRF: 0 levothyroxine 112 mcg tablet 112 mcg PO DAILY RF: 0 furosemide 20 mg tablet 20 mg PO DAILY PRNRF: 0 pantoprazole 40 mg tablet,delayed release (DR/EC) 40 mg PO DAILY RF: 0 nystatin 100,000 unit/mL suspension 5 ml mucous membrane TID Qty: 250 RF: 1 dexamethasone [Decadron] 4 mg tablet 4 mg PO DAILY Qty: 5 RF: 0 lamotrigine 200 MG tablet,disintegrating 200 mg PO BID RF: 0 aspirin 81 MG tablet,chewable 81 mg PO DAILY RF: 0 fluoxetine 20 MG capsule 40 mg PO BID RF: 0 diazepam 5 MG tablet 25 mg PO BID PRN PRN (Reason: Anxiety) RF: 0 ibuprofen 600 mg tablet 600 mg PO TID PRN (Reason: pain) Qty: 42 RF: 0 atenolol 25 mg tablet 25 mg PO DAILY Qty: 90 RF: 4 albuterol sulfate 90 mcg/actuation HFA aerosol inhaler 2 puff inhalation Q4H PRN PRN (Reason: Wheezing) Qty: 1 RF: 6 albuterol sulfate 2.5 mg /3 mL (0.083 %) solution for nebulization 2.5 mg inhalation Q4HWA.RT Qty: 25 RF: 0 Symbicort 160-4.5 mcg/actuation HFA aerosol inhaler 2 puff INHALATION BID Qty: 10.2 RF: 11 prednisone 10 mg tablet 10 mg PO QDAY Qty: 30 RF: 0 fluticasone propionate 50 mcg/actuation spray,suspension 2 spray INTRANASAL DAILY Qty: 16 RF: 3 Primary Care Provider: Sofy Richter Referrals: Sofy Richter DO [Primary Care Provider] - 3-5 Days Disposition Disposition: Home, Self Care
[2021-09-20 17:36] LABS: Absolute Lymphocyte Count 1.61 X10^3/uL (0.83-4.51); Absolute Neutrophil Count 12.4 X10^3/uL (2.0-7.7); Basophil# 0.03 X10^3/uL; Basophil% 0.2 % (0-1); Eosinophil# 0.01 X10^3/uL; Eosinophils% 0.1 % (0-5); Lymphocyte # 1.61 X10^3/ul (0.83-4.51); Lymphocyte % 10.7 % (19-41); Mean Corp Hgb Conc 33.3 g/dL (32-36); Mean Corpuscular Hgb 30.8 pg (27.0-32.0); Mean Corpuscular Volume 92.5 fL (81-99); Mean Platelet Vol. 10.7 fl (6.2-12.0); Monocyte# 0.81 X10^3/uL; Monocyte% 5.4 % (0-10); NRBC Flagged by Analyzer 0 % (0-5); Neutrophil # 12.44 X10^3/uL (2.7-7.7); Neutrophil % 82.9 % (47-70); Platelet Count 228 K/mm3 (150-450); RBC Distribution Width CV 12.5 % (11.6-14.6); Red Blood Count 3.89 M/mm3 (4.2-5.4)
[2021-09-20 17:39] VITALS: O2SAT 94
[2021-09-20 17:47] VITALS: BP 119/50; PULSE 109; RESP 19; O2SAT 92
[2021-09-20 18:09] LABS: Lactic Acid 1.2 mmol/L (0.4-1.9)
[2021-09-20 18:10] LABS: ALB/GLOB Ratio 0.8 RATIO (0.9-2.4); AST(SGOT) 21 U/L (15-37); Alanine Aminotransfer ALT/SGPT 28 U/L (13-56); Albumin, Serum 3.6 g/dL (3.2-5.0); Alkaline Phosphatase 136 U/L (45-117); Anion Gap 7 (5-15); BUN 14 mg/dL (7-18); BUN/Creat Ratio 14.6 RATIO (10-20); Chloride 101 mmol/L (98-107); Creatinine, Serum 0.96 mg/dL (0.55-1.02); EST Glomerular Filtration Rate 64 mL/min (>60); Est Glom Filt Rate - Afr Amer 77 mL/min (>60); Estimated Creatinine Clearance 64.39 ml/min; Globulin 4.4 g/dL (2.2-4.2); Glucose 129 mg/dL (74-106); Potassium 3.2 mmol/L (3.5-5.1); Sodium Level 137 mmol/L (136-145)
[2021-09-20 18:47] LABS: Mucous, Urine 0 SEEN /hpf (<or=2+)
[2021-09-20 18:52] LABS: Color, Urine Amber (Yellow); Glucose, Dipstick Normal (Normal); Ketone-Dipstick 5 mg/dl (Negative); Leukocyte Esterase-Dipstick 500 /ul (Negative); Nitrite-Dipstick Negative (Negative); Occult Blood-Urine 10 /ul (Negative); Protein-Dipstick 30 mg/dl (Negative); Urine Bilirubin Dipstick Negative (Negative); Urine Clarity Clear (Clear); Urine Urobilinogen 4 mg/dl (Normal)
[2021-09-20 19:00] LABS: Red Blood Cells-Urine 0-5 SEEN /hpf (0-5); White Blood Cells 25-50 SEEN /hpf (0-5)
[2021-09-20 19:01] LABS: Bacteria 1+ /hpf (None Seen); Squamous Epithelial Cells - UA 0-5 SEEN /hpf (5-10)
[2021-09-20] MEDS: Ciprofloxacin 400 MG/200 ML BAG 200 MG IV (20:12)
[2021-09-20 20:13] VITALS: BP 101/56; PULSE 93; RESP 16; O2SAT 94
[2021-09-20 21:41] VITALS: BP 106/58; PULSE 90; RESP 14; O2SAT 96
== END 2021-09-20 21:50 | disposition home or self-care (01) ==
PROVIDERS: Emergency Provider Emergency Medicine; PCP Family Medicine
DX: N39.0 Urinary tract infection, site not specified (principal); Z20.822 Contact with and (suspected) exposure to COVID-19; J96.11 Chronic respiratory failure with hypoxia; J96.12 Chronic respiratory failure with hypercapnia; I50.32 Chronic diastolic (congestive) heart failure; R51.9 Headache, unspecified; R09.81 Nasal congestion; J44.9 Chronic obstructive pulmonary disease, unspecified; I47.1 Supraventricular tachycardia; I25.10 Atherosclerotic heart disease of native coronary artery without angina pectoris; M19.90 Unspecified osteoarthritis, unspecified site; G89.29 Other chronic pain; M54.9 Dorsalgia, unspecified; M54.2 Cervicalgia; E03.9 Hypothyroidism, unspecified; K21.9 Gastro-esophageal reflux disease without esophagitis; F31.9 Bipolar disorder, unspecified; E66.9 Obesity, unspecified; Z79.899 Other long term (current) drug therapy; Z79.82 Long term (current) use of aspirin; Z79.52 Long term (current) use of systemic steroids; I25.2 Old myocardial infarction; Z87.891 Personal history of nicotine dependence
CPT/HCPCS: 71045; 80053; 81001; 83605; 85025; 87040; 87086; 87088; 87426; 87804; 96365; 99285; J7040; A4216; J0744

== ENCOUNTER 2021-10-04 19:20 | Emergency (ER) | payer MEDICAID, SELFPAY ==
[2021-10-04 19:20] VITALS: BP 131/94; PULSE 106; RESP 18; TEMP 35.8; O2SAT 92; BMI 30.5
--- NOTE | 2021-10-04 19:29 | RAD_ITS ---
EXAM: XR Chest, 1 View CLINICAL INDICATION: 56 years old, Female; cough TECHNIQUE: Frontal view of the chest. This report was created using [employer] report generation technology. COMPARISON: XR Chest dated 09/20/2021 FINDINGS: Lungs and pleural spaces: Atelectasis in the lung bases. No pneumothorax. No effusion. Heart: Unremarkable. Cardiac silhouette not enlarged. Mediastinum: Central airways and mediastinal contour are unremarkable. Bones/joints: Unremarkable. Soft tissues: Unremarkable. RAD/Chest 1 View IMPRESSION: No acute findings in the chest. Electronically Signed: Abdiel Carlson MD at 20:59 EST Tel , Service support ,
--- NOTE | 2021-10-04 22:33 | EDS_ITS ---
HPI History of Present Illness Chief Complaint: Cough Informant: patient Onset/Context/Timing Onset: Today Context: Gradual Onset Timing: Continuous Quality: Aching Location: Chest Worsened by: Nothing Relieved by: Nothing Narrative Narrative: Patient presents with a cough that began today. Patient states it is gradually gotten worse. Patient states she is coughing up some green sputum. Patient states she had an episode where she had some blood streaks in her sputum earlier today. Patient states she feels like she is short of breath after a coughing episode. Patient states she had a fever of 102.1 at home. Patient admits to a sore throat. Patient also admits to some pain in her chest after coughing. Patient describes it as aching. Patient also admits to a headache and back pain. Patient is concerned that she has COVID-19. [facility] Medical History Acute diastolic (congestive) heart failure (04/18/18) Acute on chronic respiratory failure with hypoxia and hypercapnia Arthritis Asthma Asthma-COPD overlap syndrome Atherosclerosis of coronary artery of [place] heart without angina pectoris Bipolar disorder Bronchitis Chronic back pain Chronic neck and back pain COPD (chronic obstructive pulmonary disease) Difficulty balancing Diverticula of colon Encounter for screening for COVID-19 GERD (gastroesophageal reflux disease) History of non-ST elevation myocardial infarction (NSTEMI) (04/16/18) History of sepsis Hypersomnia, unspecified Hypoglycemia Hypokalemia Hypothyroidism Limb weakness Obesity Paroxysmal supraventricular tachycardia Severe headache Stomach ulcer TMJ (temporomandibular joint syndrome) Urinary incontinence Home Medications lamotrigine 200 mg PO BID 04/15/18 [History Last Taken Unknown] aspirin 81 mg PO DAILY tab.chew 04/21/18 [Rx Last Taken Unknown] rosuvastatin 40 mg tablet 40 mg PO QDAY 05/24/18 [History Last Taken Unknown] diazepam 25 mg PO BID PRN PRN 06/22/18 [History Last Taken Unknown] fluoxetine 40 mg PO BID 06/22/18 [History Last Taken Unknown] xkjjzayzlh-fzpbvdbbjjhhq-zfiyjjni 50 mg-325 mg-40 mg tablet 1 tab PO PRN PRN 30 Days #90 tab 03/04/19 [History Last Taken Unknown] promethazine 25 mg tablet 1 tab PO PRN PRN 30 Days #90 tab 05/28/19 [History Last Taken Unknown] ibuprofen 600 mg tablet 600 mg PO TID PRN #42 tab 09/28/20 [Rx Last Taken Unknown] atenolol 25 mg tablet 25 mg PO DAILY #90 tab 11/12/20 [Rx Last Taken Unknown] cyclobenzaprine 10 mg tablet 20 mg PO Q6H PRN tab 02/03/21 [History Last Taken Unknown] furosemide 20 mg tablet 20 mg PO DAILY PRN tab 02/03/21 [History Last Taken Unknown] levothyroxine 112 mcg tablet 112 mcg PO DAILY tab 02/03/21 [History Last Taken Unknown] pantoprazole 40 mg tablet,delayed release 40 mg PO DAILY tab 02/03/21 [History Last Taken Unknown] nystatin 100,000 unit/mL oral suspension 5 ml MUCOUS MEMBRANE TID #250 ml 04/18/21 [Rx Last Taken Unknown] albuterol sulfate 2.5 mg INHALATION Q4HWA.RT #25 vial.neb. 05/03/21 [Rx Last Taken Unknown] albuterol sulfate 90 mcg/actuation aerosol inhaler 2 puff INHALATION Q4H PRN PRN #1 inhaler 05/03/21 [Rx Last Taken Unknown] budesonide-formoterol HFA 160 mcg-4.5 mcg/actuation aerosol inhaler 2 puff INHALATION BID #10.2 g 05/03/21 [Rx Last Taken Unknown] prednisone 10 mg tablet 10 mg PO QDAY #30 tab 05/03/21 [Rx Last Taken Unknown] dexamethasone 4 mg tablet 4 mg PO DAILY #5 tab 07/19/21 [Rx Last Taken Unknown] fluticasone propionate 50 mcg/actuation nasal spray,suspension 2 spray INTRANASAL DAILY #16 g 08/11/21 [Rx Last Taken Unknown] ciprofloxacin HCl 500 mg PO BID #14 tablet 09/20/21 [Rx Last Taken Unknown] Allergy/AdvReac Type Severity Reaction Status Date / Time amoxicillin Allergy Severe Shortness Verified 10/04/21 19:22 of breath azithromycin Allergy Severe Shortness Verified 10/04/21 19:22 of breath clindamycin Allergy Severe Shortness Verified 10/04/21 19:22 of breath doxycycline Allergy Severe Shortness Verified 10/04/21 19:22 of breath erythromycin lactobionate Allergy Severe Shortness Verified 10/04/21 19:22 [From Erythrocin] of breath Penicillins Allergy Severe Shortness Verified 10/04/21 19:22 of breath Sulfa (Sulfonamide Allergy Severe Shortness Verified 10/04/21 19:22 Antibiotics) of breath sulfamethoxazole Allergy Severe Shortness Verified 10/04/21 19:22 [From Bactrim] of breath trimethoprim [From Bactrim] Allergy Severe Shortness Verified 10/04/21 19:22 of breath meloxicam [From Mobic] Allergy Chest Verified 10/04/21 19:22 tightness tramadol Allergy Unknown Verified 10/04/21 19:22 codeine AdvReac Nausea/Vom/ Verified 10/04/21 19:22 [From Tylenol-Codeine #3] Diarrhea terbutaline [From Brethine] AdvReac Other Verified 10/04/21 19:22 ANITHISTAMINES Allergy Unknown Uncoded 10/04/21 19:22 Family History Mother Hypertension Pulmonary embolism Psychiatric care Father Lung cancer Grandmother Breast cancer Sister Asthma Seizures Psychiatric care Depression Son Depression Psychiatric care ADHD Daughter Depression Psychiatric care Bipolar 1 disorder Surgical History History of appendectomy History of section History of cholecystectomy History of dilatation and curettage History of endometrial ablation History of left heart catheterization (04/18/18) History of left oophorectomy hx of throat biopsy Social History household members: children Smoking Status: Former smoker Tobacco: How many years used: 40 how long ago did patient quit smokin, 1.5ppd second hand exposure: Yes substance use type: does not use ROS ROS ED Constitutional Constitutional ED: Reports fever(s); Denies chills Eyes Eyes: Denies blurry vision or change in vision ENT ENT ED: Reports sore throat; Denies rhinorrhea Cardiovascular Cardiovascular: Reports chest pain; Denies palpitations Respiratory/Chest Respiratory/Chest: Reports cough, dyspnea and sputum Gastrointestinal Gastrointestinal: Denies nausea or vomiting Genitourinary Genitourinary ED: Denies dysuria or hematuria Musculoskeletal Musculoskeletal: Reports back pain; Denies neck pain Integumentary Denies abscess or rash Neurologic Neurologic: Reports headache(s); Denies weakness Allergic/Immunologic Allergic/Immunologic ED: Denies mouth swelling or urticaria EXAM Physical Exam Const Vital Signs: 10/04/21 19:20 10/04/21 20:54 Temperature 96.5 F L Temperature Source Temporal Pulse Rate 106 H Respiratory Rate 18 Respiratory Effort Normal Non-Labored Respiratory Depth Normal Respiratory Pattern Normal Blood Pressure 131/94 H Blood Pressure Mean 106 Pulse Ox 92 Oxygen Delivery Method Room Air Positive well nourished and well developed General Appearance ED: well developed HEENT Reports moist mucous membranes Neck supple and no JVD Resp normal respiratory effort and clear to auscultation bilaterally Cardio regular rate, regular rhythm and no murmurs GI normal to inspection, nondistended, normoactive bowel sounds and non-tender Palpation: soft Extremity normal to inspection General Extremety ED: Negative for edema or tenderness General Extremity: Negative for edema Neuro oriented x3, CN's II-XII intact bilaterally and no sensory deficits noted Sensorium / Orientation: alert Motor Exam: strength 5/5 throughout Psych mental status grossly normal Skin no rashes or lesions noted MDM MDM MDM Narrative Medical decision making narrative: Portable 1 view chest x-ray was obtained. On my interpretation, lung thomas are clear. There is normal cardiac silhouette. Bony thorax is normal. There is no acute process noted. Radiologist also inte rpreted the x-ray and agrees. COVID-19 rapid antigen was obtained and was negative. Patient was instructed to take Tylenol or ibuprofen as needed for any fevers. Patient was instructed to take Mucinex DM as needed for cough. Patient was instructed to follow-up with her primary care physician in 5 to 7 days. Patient understands and is agreeable with the plan. All questions were answered. Radiography Chest X-Ray - ED: 1 View, Read by ED Physician, Read by Radiologist and Normal Diagnostic Testing: Clinical Impression(s) from Imaging Studies Chest X-Ray 10/04/21 19:29 IMPRESSION: No acute findings in the chest. Electronically Signed: Abdiel Carlson MD at 20:59 EST Tel , Service support , Discharge Plan Triage Chief Complaint: Cough ED Provider: Davon Turner Dx/Rx/DC Orders Clinical Impression: Viral upper respiratory tract infection with cough Instructions: ED URI, Viral, No Abx (Adult) Prescriptions: No Action rosuvastatin 40 mg tablet 40 mg PO QDAY RF: 0 promethazine 25 mg tablet 1 tab PO PRN PRN (Reason: Nausea) 30 Days Qty: 90 RF: 0 lyehsfwwyi-nsywssbarkfbj-oqbw 50-325-40 mg tablet 1 tab PO PRN PRN (Reason: Migraine Symptoms) 30 Days Qty: 90 RF: 0 cyclobenzaprine 10 mg tablet 20 mg PO Q6H PRNRF: 0 levothyroxine 112 mcg tablet 112 mcg PO DAILY RF: 0 furosemide 20 mg tablet 20 mg PO DAILY PRNRF: 0 pantoprazole 40 mg tablet,delayed release (DR/EC) 40 mg PO DAILY RF: 0 nystatin 100,000 unit/mL suspension 5 ml mucous membrane TID Qty: 250 RF: 1 dexamethasone [Decadron] 4 mg tablet 4 mg PO DAILY Qty: 5 RF: 0 lamotrigine 200 MG tablet,disintegrating 200 mg PO BID RF: 0 aspirin 81 MG tablet,chewable 81 mg PO DAILY RF: 0 fluoxetine 20 MG capsule 40 mg PO BID RF: 0 diazepam 5 MG tablet 25 mg PO BID PRN PRN (Reason: Anxiety) RF: 0 ciprofloxacin HCl [ciprofloxacin HCl] 500 MG tablet 500 mg PO BID Qty: 14 RF: 0 ibuprofen 600 mg tablet 600 mg PO TID PRN (Reason: pain) Qty: 42 RF: 0 atenolol 25 mg tablet 25 mg PO DAILY Qty: 90 RF: 4 albuterol sulfate 90 mcg/actuation HFA aerosol inhaler 2 puff inhalation Q4H PRN PRN (Reason: Wheezing) Qty: 1 RF: 6 albuterol sulfate 2.5 mg /3 mL (0.083 %) solution for nebulization 2.5 mg inhalation Q4HWA.RT Qty: 25 RF: 0 Symbicort 160-4.5 mcg/actuation HFA aerosol inhaler 2 puff INHALATION BID Qty: 10.2 RF: 11 prednisone 10 mg tablet 10 mg PO QDAY Qty: 30 RF: 0 fluticasone propionate 50 mcg/actuation spray,suspension 2 spray INTRANASAL DAILY Qty: 16 RF: 3 Primary Care Provider: Sofy Richter Referrals: Sofy Richter DO [Primary Care Provider] - 5-7 Days Disposition Disposition: Home, Self Care
== END 2021-10-04 22:44 | disposition home or self-care (01) ==
PROVIDERS: Emergency Provider Emergency Medicine; PCP Family Medicine
DX: J06.9 Acute upper respiratory infection, unspecified (principal); Z20.822 Contact with and (suspected) exposure to COVID-19; I50.32 Chronic diastolic (congestive) heart failure; J44.9 Chronic obstructive pulmonary disease, unspecified; I25.10 Atherosclerotic heart disease of native coronary artery without angina pectoris; E03.9 Hypothyroidism, unspecified; M19.90 Unspecified osteoarthritis, unspecified site; M54.9 Dorsalgia, unspecified; G89.29 Other chronic pain; M54.2 Cervicalgia; K21.9 Gastro-esophageal reflux disease without esophagitis; E66.9 Obesity, unspecified; Z79.82 Long term (current) use of aspirin; Z79.1 Long term (current) use of non-steroidal anti-inflammatories (NSAID); Z79.899 Other long term (current) drug therapy; I25.2 Old myocardial infarction; Z87.891 Personal history of nicotine dependence
CPT/HCPCS: 71045; 87426; 99282

== ENCOUNTER 2021-10-06 08:51 | Inpatient (IN) | payer MEDICAID, SELFPAY ==
[2021-10-06] VITALS (14 sets, daily range): BP systolic 96–134; BP diastolic 48–108; PULSE 78–113; RESP 14–24; TEMP 35.7–37.9; O2SAT 93–99; BMI 31.6; BMI 32.1
--- NOTE | 2021-10-06 09:16 | EKG12_ITS ---
Test Reason : Blood Pressure : / mmHG Vent. Rate : 108 BPM Atrial Rate : 108 BPM P-R Int : 118 ms QRS Dur : 068 ms QT Int : 346 ms P-R-T Axes : 062 009 053 degrees QTc Int : 463 ms Sinus tachycardia Nonspecific ST and T wave abnormality Abnormal ECG Confirmed by JIMMY PALMER, ONEL ([id number]), story editor ADDIE REY ([id number]) on 10/12/2021 12:09:10 PM Referred By: MR Confirmed By:ONEL MARQUEZ MD
--- NOTE | 2021-10-06 09:19 | EDS_ITS ---
HPI History of Present Illness Chief Complaint: General Illness Narrative Narrative: Patient presenting for evaluation secondary to a respiratory illness. Patient reports that 3 days ago she started to feel ill. This was associated with a cough minimally productive of yellow sputum, body aches, headaches, fevers, chills. Patient denies that she has had significant GI symptoms associated with this. Patient did have a home Covid test performed that was noted to be negative, but almost all of her family members have tested positive. Patient has an underlying history of COPD, typically only wears oxygen at night. She has required to be on her oxygen throughout the day now. Review of systems otherwise negative. [facility] Medical History Acute diastolic (congestive) heart failure (04/18/18) Acute on chronic respiratory failure with hypoxia and hypercapnia Arthritis Asthma Asthma-COPD overlap syndrome Atherosclerosis of coronary artery of [place] heart without angina pectoris Bipolar disorder Bronchitis Chronic back pain Chronic neck and back pain COPD (chronic obstructive pulmonary disease) Difficulty balancing Diverticula of colon Encounter for screening for COVID-19 GERD (gastroesophageal reflux disease) History of non-ST elevation myocardial infarction (NSTEMI) (04/16/18) History of sepsis Hypersomnia, unspecified Hypoglycemia Hypokalemia Hypothyroidism Limb weakness Obesity Paroxysmal supraventricular tachycardia Severe headache Stomach ulcer TMJ (temporomandibular joint syndrome) Urinary incontinence Home Medications lamotrigine 200 mg PO BID 04/15/18 [History Last Taken Unknown] aspirin 81 mg PO DAILY tab.chew 04/21/18 [Rx Last Taken Unknown] rosuvastatin 40 mg tablet 40 mg PO QDAY 05/24/18 [History Last Taken Unknown] diazepam 25 mg PO BID PRN PRN 06/22/18 [History Last Taken Unknown] fluoxetine 40 mg PO BID 06/22/18 [History Last Taken Unknown] iufkeldxws-zemhewcytgvxr-ywfibpyf 50 mg-325 mg-40 mg tablet 1 tab PO PRN PRN 30 Days #90 tab 03/04/19 [History Last Taken Unknown] promethazine 25 mg tablet 1 tab PO PRN PRN 30 Days #90 tab 03/04/19 [History Last Taken Unknown] ibuprofen 600 mg tablet 600 mg PO TID PRN #42 tab 09/28/20 [Rx Last Taken Unknown] atenolol 25 mg tablet 25 mg PO DAILY #90 tab 11/12/20 [Rx Last Taken Unknown] cyclobenzaprine 10 mg tablet 20 mg PO Q6H PRN tab 02/03/21 [History Last Taken Unknown] furosemide 20 mg tablet 20 mg PO DAILY tab 02/03/21 [History Last Taken Unknown] levothyroxine 112 mcg tablet 112 mcg PO DAILY tab 02/03/21 [History Last Taken Unknown] pantoprazole 40 mg tablet,delayed release 40 mg PO DAILY tab 02/03/21 [History Last Taken Unknown] nystatin 100,000 unit/mL oral suspension 5 ml MUCOUS MEMBRANE TID #250 ml 04/18/21 [Rx Last Taken Unknown] albuterol sulfate 2.5 mg INHALATION Q4HWA.RT #25 vial.neb. 05/03/21 [Rx Last Taken Unknown] albuterol sulfate 90 mcg/actuation aerosol inhaler 2 puff INHALATION Q4H PRN PRN #1 inhaler 05/03/21 [Rx Last Taken Unknown] budesonide-formoterol HFA 160 mcg-4.5 mcg/actuation aerosol inhaler 2 puff INHALATION BID #10.2 g 05/03/21 [Rx Last Taken Unknown] prednisone 10 mg tablet 10 mg PO QDAY #30 tab 05/03/21 [Rx Last Taken Unknown] dexamethasone 4 mg tablet 4 mg PO DAILY #5 tab 07/19/21 [Rx Last Taken Unknown] fluticasone propionate 50 mcg/actuation nasal spray,suspension 2 spray INTRANASAL DAILY #16 g 08/11/21 [Rx Last Taken Unknown] ciprofloxacin HCl 500 mg PO BID #14 tablet 09/20/21 [Rx Last Taken Unknown] Allergy/AdvReac Type Severity Reaction Status Date / Time amoxicillin Allergy Severe Shortness Verified 10/06/21 08:54 of breath azithromycin Allergy Severe Shortness Verified 10/06/21 08:54 of breath clindamycin Allergy Severe Shortness Verified 10/06/21 08:54 of breath doxycycline Allergy Severe Shortness Verified 10/06/21 08:54 of breath erythromycin lactobionate Allergy Severe Shortness Verified 10/06/21 08:54 [From Erythrocin] of breath Penicillins Allergy Severe Shortness Verified 10/06/21 08:54 of breath Sulfa (Sulfonamide Allergy Severe Shortness Verified 10/06/21 08:54 Antibiotics) of breath sulfamethoxazole Allergy Severe Shortness Verified 10/06/21 08:54 [From Bactrim] of breath trimethoprim [From Bactrim] Allergy Severe Shortness Verified 10/06/21 08:54 of breath meloxicam [From Mobic] Allergy Chest Verified 10/06/21 08:54 tightness tramadol Allergy Unknown Verified 10/06/21 08:54 codeine AdvReac Nausea/Vom/ Verified 10/06/21 08:54 [From Tylenol-Codeine #3] Diarrhea terbutaline [From Brethine] AdvReac Other Verified 10/06/21 08:54 ANITHISTAMINES Allergy Unknown Uncoded 10/04/21 19:22 Family History Mother Hypertension Pulmonary embolism Psychiatric care Father Lung cancer Grandmother Breast cancer Sister Asthma Seizures Psychiatric care Depression Son Depression Psychiatric care ADHD Daughter Depression Psychiatric care Bipolar 1 disorder Surgical History History of appendectomy History of section History of cholecystectomy History of dilatation and curettage History of endometrial ablation History of left heart catheterization (04/18/18) History of left oophorectomy hx of throat biopsy Social History household members: children Smoking Status: Former smoker Tobacco: How many years used: 40 how long ago did patient quit smokin, 1.5ppd second hand exposure: Yes substance use type: does not use ROS ROS ED Constitutional Constitutional ED: Reports chills and fever(s) ENT ENT ED: Denies rhinorrhea Cardiovascular Cardiovascular: Denies chest pain Respiratory/Chest Respiratory/Chest: Reports cough, dyspnea and sputum Gastrointestinal Gastrointestinal: Denies abdominal pain, diarrhea, nausea or vomiting Genitourinary Genitourinary ED: Denies dysuria or hematuria Musculoskeletal Musculoskeletal: Reports myalgias Integumentary Denies rash Neurologic Neurologic: Denies paresthesias or weakness Psychiatric Psychiatric: Denies depression Endocrine Endocrinology: Denies fatigue Allergic/Immunologic Allergic/Immunologic ED: Denies urticaria EXAM Physical Exam Const Vital Signs: 10/06/21 08:51 10/06/21 09:40 10/06/21 09:42 Temperature 100.3 F H 99.2 F H 99.2 F H Temperature Source Temporal Temporal Temporal Pulse Rate 113 H 107 H 107 H Respiratory Rate 18 16 16 Respiratory Effort Respiratory Pattern Blood Pressure 122/108 H 124/95 H 124/95 H Blood Pressure Mean 112 104 104 Pulse Ox 94 95 95 Oxygen Delivery Method Nasal Cannula Nasal Cannula Room Air Oxygen Flow Rate (L/min) 2 3 3 Fraction of Inspired Oxygen (FIO2) 97 10/06/21 09:59 10/06/21 10:00 10/06/21 10:40 Temperature 99.7 F H 99.7 F H 98.6 F Temperature Source Oral Oral Oral Pulse Rate 107 H 101 H Respiratory Rate 16 24 H Respiratory Effort Short of Breath Respiratory Pattern Tachypnea Blood Pressure 124/95 H 134/66 H Blood Pressure Mean 104 88 Pulse Ox 95 94 Oxygen Delivery Method Room Air Nasal Cannula Oxygen Flow Rate (L/min) 2 Fraction of Inspired Oxygen (FIO2) Positive well nourished and well developed Constitutional Narrative: Chronically ill-appearing female dyspneic but otherwise not in respiratory distress General Appearance ED: well developed HEENT Reports moist mucous membranes Negative for trauma or tenderness Eyes EOMs intact bilaterally Neck no lymphadenopathy, supple and no JVD Chest Wall inspection of chest normal Resp Resp Narrative: Patient is on supplemental oxygen and has very poor air movement throughout the lung thomas with wheezing noted. Cardio regular rate, regular rhythm, no murmurs and peripheral pulses 2+ throughout GI normal to inspection, nondistended, normoactive bowel sounds, non-tender and no masses Palpation: soft Back/Spine normal to inspection Extremity normal to inspection General Extremety ED: Negative for tenderness Neuro oriented x3 and no sensory deficits noted Sensorium / Orientation: alert Motor Exam: strength 5/5 throughout Psych mental status grossly normal Skin no rashes or lesions noted MDM MDM MDM Narrative Medical decision making narrative: Patient presented due to concern for the possibility of Covid. Patient has increased oxygen demand. X-ray by my personal interpretation shows bilateral airspace disease consistent with COVID- 19. Patient's laboratory work-up was relatively reassuring with a normal lactic acid, no signs of significant electrolyte derangements or dehydration. Patient has very poor functional reserve, has increased oxygen requirements, and has Covid I believe that she requires admission. Patient was given Decadron will be admitted under the hospitalist. Lab Data Labs: Laboratory Results - last 24 hr 10/06/21 10/06/21 10/06/21 09:03 09:03 09:03 WBC 8.3 RBC 3.55 L Hgb 11.0 L Hct 32.9 L MCV 92.7 MCH 31.0 MCHC 33.4 RDW Std Deviation 43.9 RDW Coeff of Lino 12.8 Plt Count 206 MPV 11.1 Immature Gran % (Auto) 0.500 Neut % (Auto) 80.9 H Lymph % (Auto) 12.4 L [place] % (Auto) 5.9 Eos % (Auto) 0.1 Baso % (Auto) 0.2 Absolute Neuts (auto) 6.7 Absolute Lymphs (auto) 1.03 Nucleated RBC % 0 PT 13.3 INR 1.1 APTT 27.3 Sodium 138 Potassium 3.6 Chloride 100 Carbon Dioxide 29.0 Anion Gap 9 BUN 9 Creatinine 0.79 Estim Creat Clear Calc 75.32 Est GFR (MDRD) Af Amer 97 Est GFR (MDRD) Non-Af 80 BUN/Creatinine Ratio 11.3 Glucose 115 H Lactic Acid Calcium 8.6 Total Bilirubin 0.40 AST 27 ALT 27 Alkaline Phosphatase 127 H Total Protein 7.5 Albumin 3.2 Globulin 4.3 H Albumin/Globulin Ratio 0.7 L 10/06/21 09:03 WBC RBC Hgb Hct MCV MCH MCHC RDW Std Deviation RDW Coeff of Lino Plt Count MPV Immature Gran % (Auto) Neut % (Auto) Lymph % (Auto) [place] % (Auto) Eos % (Auto) Baso % (Auto) Absolute Neuts (auto) Absolute Lymphs (auto) Nucleated RBC % PT INR APTT Sodium Potassium Chloride Carbon Dioxide Anion Gap BUN Creatinine Estim Creat Clear Calc Est GFR (MDRD) Af Amer Est GFR (MDRD) Non-Af BUN/Creatinine Ratio Glucose Lactic Acid 1.5 Calcium Total Bilirubin AST ALT Alkaline Phosphatase Total Protein Albumin Globulin Albumin/Globulin Ratio Radiography Diagnostic Testing: Clinical Impression(s) from Imaging Studies Chest X-Ray 10/06/21 09:25 IMPRESSION: Bilateral airspace opacification demonstrating increase in size consistent with the diagnosis of Covid 19 disease. Electronically Signed: Juan Moya MD at 10:13 EST Tel , Service support , EKG Initial EKG: Attestation: I personally reviewed and interpreted this EKG as follows: (Sinus rhythm of 108. There are some T wave changes noted in leads V3, V4, V5 that are new from previous EKG earlier this year) Discharge Plan Dx/Rx/DC Orders Clinical Impression: COVID-19 Disposition Disposition: Acute Care Hospital [facility]
--- NOTE | 2021-10-06 09:25 | RAD_ITS ---
INDICATION: covid EXAMINATION/TECHNIQUE: X-RAY - XR Chest 1 View COMPARISON: 10/04/2021. FINDINGS: LINES/DEVICES: None. LUNGS: Prominence of the bronchovascular interstitial lung markings visualized bilaterally with patchy airspace opacification visualized in bilateral lung thomas demonstrating prominence in comparison to the prior study, no evidence of pneumothorax or pleural effusion, findings consistent with the diagnosis of Covid 19 disease. MEDIASTINUM AND CARDIOVASCULAR STRUCTURES: Cardiac silhouette not enlarged. BONES AND SOFT TISSUES: Unremarkable. RAD/Chest 1 View (Portable) IMPRESSION: Bilateral airspace opacification demonstrating increase in size consistent with the diagnosis of Covid 19 disease. Electronically Signed: Juan Moya MD at 10:13 EST Tel , Service support ,
[2021-10-06 09:30] LABS: Absolute Lymphocyte Count 1.03 X10^3/uL (0.83-4.51); Absolute Neutrophil Count 6.7 X10^3/uL (2.0-7.7); Basophil# 0.02 X10^3/uL; Basophil% 0.2 % (0-1); Eosinophil# 0.01 X10^3/uL; Eosinophils% 0.1 % (0-5); Hematocrit 32.9 % (37-47); Lymphocyte # 1.03 X10^3/ul (0.83-4.51); Lymphocyte % 12.4 % (19-41); Mean Corp Hgb Conc 33.4 g/dL (32-36); Mean Corpuscular Volume 92.7 fL (81-99); Mean Platelet Vol. 11.1 fl (6.2-12.0); Monocyte# 0.49 X10^3/uL; Monocyte% 5.9 % (0-10); NRBC Flagged by Analyzer 0 % (0-5); Neutrophil % 80.9 % (47-70); Platelet Count 206 K/mm3 (150-450); RBC Distribution Width CV 12.8 % (11.6-14.6); RBC Distribution Width SD 43.9 fl (35.1-43.9); Red Blood Count 3.55 M/mm3 (4.2-5.4); White Blood Count 8.3 K/mm3 (4.4-11.0)
[2021-10-06 09:42] LABS: International Normalized Ratio 1.1; Prothrombin Time (Protime)PT. 13.3 SECONDS (11.7-14.9)
[2021-10-06 09:43] LABS: Partial Thromboplast Time 27.3 Seconds (24.1-36.2)
[2021-10-06 09:45] LABS: ALB/GLOB Ratio 0.7 RATIO (0.9-2.4); AST(SGOT) 27 U/L (15-37); Alanine Aminotransfer ALT/SGPT 27 U/L (13-56); Albumin, Serum 3.2 g/dL (3.2-5.0); Alkaline Phosphatase 127 U/L (45-117); Anion Gap 9 (5-15); BUN 9 mg/dL (7-18); BUN/Creat Ratio 11.3 RATIO (10-20); Calcium,Total 8.6 mg/dL (8.5-10.1); Chloride 100 mmol/L (98-107); Creatinine, Serum 0.79 mg/dL (0.55-1.02); EST Glomerular Filtration Rate 80 mL/min (>60); Est Glom Filt Rate - Afr Amer 97 mL/min (>60); Estimated Creatinine Clearance 75.32 ml/min; Globulin 4.3 g/dL (2.2-4.2); Glucose 115 mg/dL (74-106); Lactic Acid 1.5 mmol/L (0.4-1.9); Potassium 3.6 mmol/L (3.5-5.1); Protein, Total 7.5 g/dL (6.4-8.2); Sodium Level 138 mmol/L (136-145)
[2021-10-06] MEDS: Acetaminophen 500 MG Tablet 1000 MG PO (10:00)
[2021-10-06] MEDS: 0.9% Normal Saline 1,000 ML 999 ML IV (10:00)
--- NOTE | 2021-10-06 10:40 | HP.PCM.HOS_ITS ---
HPI - General General Date of Admission: 10/06/21 HPI Narrative ALEXEI FOWLER, is a 56 F with an extensive PMH as outlined below who presents with a complaint of shortness of breath. His symptoms started about 3 days prior to admission and she had associated cough, generalized body aches and fever and chills. Her cough was significant for production of yellowish sputum. She said all her family members had tested positive and she had done a Covid test at home but this was negative. Patient is unvaccinated. Patient has COPD usually wears about 2 to 3 L of oxygen at night but was now wearing it all the time so she decided to come into the ED. Vitals were blood pressure 109/66, pulse rate of 99, respiratory rate of 18 and temperature of 98.2 Fahrenheit. She was saturating at 96% on 2 L of oxygen. CBC was unremarkable and BMP was also unremarkable. Chest x-ray showed bilateral airspace opacification demonstrating increase in size consistent with the diagnosis of COVID-19 pneumonia. She has been admitted to be managed for acute hypoxic respiratory failure due to COVID-19 pneumonia. [facility] Medical History (Updated 10/06/21 @ 14:07 by Marleni Bocanegra) Acute diastolic (congestive) heart failure (04/18/18) Acute on chronic respiratory failure with hypoxia and hypercapnia Arthritis Asthma Asthma-COPD overlap syndrome Atherosclerosis of coronary artery of [place] heart without angina pectoris Bipolar disorder Bronchitis Chronic back pain Chronic neck and back pain COPD (chronic obstructive pulmonary disease) Depression Difficulty balancing Diverticula of colon Encounter for screening for COVID-19 GERD (gastroesophageal reflux disease) History of non-ST elevation myocardial infarction (NSTEMI) (04/16/18) History of sepsis Hypersomnia, unspecified Hypoglycemia Hypokalemia Hypothyroidism Limb weakness Myocardial infarct Obesity Paroxysmal supraventricular tachycardia Severe headache Stomach ulcer TMJ (temporomandibular joint syndrome) Urinary incontinence Home Medications lamotrigine 200 mg PO BID 04/15/18 [History Last Taken Unknown] aspirin 81 mg PO DAILY tab.chew 04/21/18 [Rx Last Taken Unknown] rosuvastatin 40 mg tablet 40 mg PO QDAY 05/24/18 [History Last Taken Unknown] diazepam 25 mg PO BID PRN PRN 06/22/18 [History Last Taken Unknown] fluoxetine 40 mg PO BID 06/22/18 [History Last Taken Unknown] ossqhwbiex-sxdjupnrsdjdx-udqdofln 50 mg-325 mg-40 mg tablet 1 tab PO PRN PRN 30 Days #90 tab 03/04/19 [History Last Taken Unknown] promethazine 25 mg tablet 1 tab PO PRN PRN 30 Days #90 tab 03/04/19 [History Last Taken Unknown] ibuprofen 600 mg tablet 600 mg PO TID PRN #42 tab 09/28/20 [Rx Last Taken Unknown] atenolol 25 mg tablet 25 mg PO DAILY #90 tab 11/12/20 [Rx Last Taken Unknown] cyclobenzaprine 10 mg tablet 20 mg PO Q6H PRN tab 02/03/21 [History Last Taken Unknown] furosemide 20 mg tablet 20 mg PO DAILY tab 02/03/21 [History Last Taken Unknown] levothyroxine 112 mcg tablet 112 mcg PO DAILY tab 02/03/21 [History Last Taken Unknown] pantoprazole 40 mg tablet,delayed release 40 mg PO DAILY tab 02/03/21 [History Last Taken Unknown] nystatin 100,000 unit/mL oral suspension 5 ml MUCOUS MEMBRANE TID #250 ml 04/18/21 [Rx Last Taken Unknown] albuterol sulfate 2.5 mg INHALATION Q4HWA.RT #25 vial.neb. 05/03/21 [Rx Last Taken Unknown] albuterol sulfate 90 mcg/actuation aerosol inhaler 2 puff INHALATION Q4H PRN PRN #1 inhaler 05/03/21 [Rx Last Taken Unknown] budesonide-formoterol HFA 160 mcg-4.5 mcg/actuation aerosol inhaler 2 puff INHALATION BID #10.2 g 05/03/21 [Rx Last Taken Unknown] prednisone 10 mg tablet 10 mg PO QDAY #30 tab 05/03/21 [Rx Last Taken Unknown] dexamethasone 4 mg tablet 4 mg PO DAILY #5 tab 07/19/21 [Rx Last Taken Unknown] fluticasone propionate 50 mcg/actuation nasal spray,suspension 2 spray INTRANA GELY DAILY #16 g 08/11/21 [Rx Last Taken Unknown] ciprofloxacin HCl 500 mg PO BID #14 tablet 09/20/21 [Rx Last Taken Unknown] Allergy/AdvReac Type Severity Reaction Status Date / Time amoxicillin Allergy Severe Shortness Verified 10/06/21 08:54 of breath azithromycin Allergy Severe Shortness Verified 10/06/21 08:54 of breath clindamycin Allergy Severe Shortness Verified 10/06/21 08:54 of breath doxycycline Allergy Severe Shortness Verified 10/06/21 08:54 of breath erythromycin lactobionate Allergy Severe Shortness Verified 10/06/21 08:54 [From Erythrocin] of breath Penicillins Allergy Severe Shortness Verified 10/06/21 08:54 of breath Sulfa (Sulfonamide Allergy Severe Shortness Verified 10/06/21 08:54 Antibiotics) of breath sulfamethoxazole Allergy Severe Shortness Verified 10/06/21 08:54 [From Bactrim] of breath trimethoprim [From Bactrim] Allergy Severe Shortness Verified 10/06/21 08:54 of breath meloxicam [From Mobic] Allergy Chest Verified 10/06/21 08:54 tightness tramadol Allergy Unknown Verified 10/06/21 08:54 codeine AdvReac Nausea/Vom/ Verified 10/06/21 08:54 [From Tylenol-Codeine #3] Diarrhea terbutaline [From Brethine] AdvReac Other Verified 10/06/21 08:54 ANITHISTAMINES Allergy Unknown Uncoded 10/04/21 19:22 Family History Mother Hypertension Pulmonary embolism Psychiatric care Father Lung cancer Grandmother Breast cancer Sister Asthma Seizures Psychiatric care Depression Son Depression Psychiatric care ADHD Daughter Depression Psychiatric care Bipolar 1 disorder Surgical History History of appendectomy History of section History of cholecystectomy History of dilatation and curettage History of endometrial ablation History of left heart catheterization (04/18/18) History of left oophorectomy hx of throat biopsy Social History household members: children Smoking Status: Former smoker Tobacco: How many years used: 40 how long ago did patient quit smokin, 1.5ppd second hand exposure: Yes substance use type: does not use ROS Constitutional Constitutional: Reports anorexia, chills, fatigue, fever(s), malaise and weakness; Denies change in weight Eyes Eyes: Denies change in vision ENT HEENT: Denies dysphagia or headache(s) Cardiovascular Cardiovascular: Reports dyspnea on exertion, edema and orthopnea; Denies chest pain, lightheadedness, palpitations, paroxysmal nocturnal dyspnea, rapid heart rate or syncope Respiratory/Chest Respiratory/Chest: Reports cough, dyspnea, productive cough, shortness of breath at rest, shortness of breath with exertion and wheezing; Denies hemoptysis Gastrointestinal Gastrointestinal: Reports vomiting; Denies abdominal pain, constipation, diarrhea, hematemesis, hematochezia, melena or nausea Genitourinary Genitourinary: Denies burning urination or dysuria Musculoskeletal Musculoskeletal: Denies arthralgias or joint stiffness Neurologic Neurologic: Denies confusion, dizziness or focal weakness Endocrine Endocrinology: Denies change in body appearance Vital Signs Vital Signs Vital Signs: 10/06/21 08:51 10/06/21 09:40 10/06/21 09:42 Temperature 100.3 F H 99.2 F H 99.2 F H Temperature Source Temporal Temporal Temporal Pulse Rate 113 H 107 H 107 H Respiratory Rate 18 16 16 Respiratory Effort Respiratory Pattern Blood Pressure 122/108 H 124/95 H 124/95 H Blood Pressure Mean 112 104 104 Pulse Ox 94 95 95 Oxygen Delivery Method Nasal Cannula Nasal Cannula Room Air Oxygen Flow Rate (L/min) 2 3 3 Fraction of Inspired Oxygen (FIO2) 97 10/06/21 09:59 10/06/21 10:00 Temperature 99.7 F H 99.7 F H Temperature Source Oral Oral Pulse Rate 107 H Respiratory Rate 16 Respiratory Effort Short of Breath Respiratory Pattern Tachypnea Blood Pressure 124/95 H Blood Pressure Mean 104 Pulse Ox 95 Oxygen Delivery Method Room Air Oxygen Flow Rate (L/min) Fraction of Inspired Oxygen (FIO2) Weight Weight: 195 lb 12.328 oz Body Mass Index (BMI) 31.6 Physical Exam Const alert and oriented x3 General Appearance: cooperative Orientation / Consciousness: lethargic HEENT normocephalic, head/scalp atraumatic and hearing grossly normal bilaterally HEENT Narrative: dry mucosal membranes Eyes PERRL, EOMs intact bilaterally and conjunctivae normal Neck no lymphadenopathy Resp Resp Narrative: Diminished breath sounds bibasilarly. No wheezes or crackles. On 3 L of oxygen. Cardio regular rate, regular rhythm, S1 normal heart sound and S2 normal heart sound GI normal to inspection, nondistended, normoactive bowel sounds, soft to palpation, non-tender and non-distended Extremity normal to inspection and full ROM Peripheral Pulses: Yes pulses 2+ throughout Skin no rashes or lesions noted Neuro oriented x3, CN's II-XII intact bilaterally and moves all extremities Sensorium / Orientation: awake and alert Psych affect normal Results Lab / Micro Data Result Diagrams: 10/06/21 09:03 10/06/21 09:03 Labs: Laboratory Results - last 24 hr 10/06/21 09:03: WBC 8.3, RBC 3.55 L, Hgb 11.0 L, Hct 32.9 L, MCV 92.7, MCH 31.0, MCHC 33.4, RDW Std Deviation 43.9, RDW Coeff of Lino 12.8, Plt Count 206, MPV 11.1, Immature Gran % (Auto) 0.500, Neut % (Auto) 80.9 H, Lymph % (Auto) 12.4 L, [place] % (Auto) 5.9, Eos % (Auto) 0.1, Baso % (Auto) 0.2, Absolute Neuts (auto) 6.7, Absolute Lymphs (auto) 1.03, Nucleated RBC % 0 10/06/21 09:03: PT 13.3, INR 1.1, APTT 27.3 10/06/21 09:03: Sodium 138, Potassium 3.6, Chloride 100, Carbon Dioxide 29.0, Anion Gap 9, BUN 9, Creatinine 0.79, Estim Creat Clear Calc 75.32, Est GFR (MDRD) Af Amer 97, Est GFR (MDRD) Non-Af 80, BUN/Creatinine Ratio 11.3, Glucose 115 H, Calcium 8.6, Total Bilirubin 0.40, AST 27, ALT 27, Alkaline Phosphatase 127 H, Total Protein 7.5, Albumin 3.2, Globulin 4.3 H, Albumin/Globulin Ratio 0.7 L 10/06/21 09:03: Lactic Acid 1.5 Micro: Microbiology 10/06/21 09:55 Nasal Secretion SARS-CoV-2 Antigen (Rapid) - Final SARS-CoV-2 (COVID 19) Radiology Impression Chest X-Ray 10/06/21 09:25 IMPRESSION: Bilateral airspace opacification demonstrating increase in size consistent with the diagnosis of Covid 19 disease. Electronically Signed: Juan Moya MD at 10:13 EST Tel , Service support , Assessment & Plan Assessment/Plan (1) COVID-19: PLAN: #COVID 19 pneumonia * currently on her baseline 3L of oxygen. Titrate oxygen to maintain sats >90% * start on remdesivir and decadron. * check urine for strep and legionella * breathing treatment with bronchodilators * Incentive spirometry * #Chronic respiratory failure due to COPD * On her baseline 3 L of oxygen. Breathing treatments bronchodilators. * #Hypertension; on atenolol. #Bipolar disorder and depression:on fluoxetine. #Hyperlipidemia: On rosuvastatin. #Chronic diastolic heart failure * On Lasix 20 mg daily. * #GERD: on PPI. #Hypothyroidism; on synthroid. #Seizure disorder: on lamotrigine. DVT prophylaxis: lovenox CODE STATUS: Full code * Patient counseled extensively about different types of CODE STATUS including full code, DNR CCA and DNR CCA. Patient elects to be full code * . Total [id number] time 17 minutes. Charges/Coding Visit Charges Inpatient E&M: 98573 Init Hosp L3 Procedures Hospitalists Procedures: 45122 Advncd Care Plan 30 Min
[2021-10-06] MEDS: dexAMETHasone 4 MG Tablet 6 MG PO (11:44)
--- NOTE | 2021-10-06 13:02 | PCS.PANDOC ---
PANDEMIC DOCUMENTATION INITIATED: Date: 05/23/2021 Time: 190
[2021-10-06 15:25] LABS: Alkaline Phosphatase 126 U/L (45-117)
[2021-10-06] MEDS: Ibuprofen 600 MG Tablet PO (15:51)
[2021-10-06] MEDS: Pantoprazole Sodium 40 MG Tablet PO ×2 (15:52)
[2021-10-06] MEDS: Atenolol 25 MG Tablet PO ×2 (15:52)
[2021-10-06] MEDS: 0.9% Saline Lock 10 ML Syringe IV (15:59)
[2021-10-06] MEDS: Ipratropium/Albuterol Sulfate 3 ML AMPUL.NEB INHALATION (19:28)
[2021-10-06] MEDS: lamoTRIgine 100 MG Tablet 200 MG PO (20:51)
[2021-10-06] MEDS: Enoxaparin 30 MG/0.3 ML Syringe SC (20:57)
[2021-10-06] MEDS: NYSTATIN 500,000 UNIT/5 ML UDC 500000 UNIT PO (20:57)
[2021-10-07] VITALS (17 sets, daily range): BP systolic 107–147; BP diastolic 51–108; PULSE 78–118; RESP 16–24; TEMP 36.4–38.9; O2SAT 92–99
[2021-10-07] MEDS: NYSTATIN 500,000 UNIT/5 ML UDC 500000 UNIT PO ×3 (05:14→20:29)
[2021-10-07] MEDS: diazePAM 5 MG Tablet PO ×2 (05:17→18:00)
[2021-10-07] MEDS: Acetaminophen 325 MG Tablet 650 MG PO ×3 (05:17→22:11)
[2021-10-07 06:34] LABS: Absolute Lymphocyte Count 2.01 X10^3/uL (0.83-4.51); Basophil# 0.01 X10^3/uL; Basophil% 0.1 % (0-1); Eosinophil# 0.14 X10^3/uL; Eosinophils% 1.8 % (0-5); Hematocrit 34.5 % (37-47); Hemoglobin 10.7 g/dL (12.0-15.0); Lymphocyte # 2.01 X10^3/ul (0.83-4.51); Lymphocyte % 26.1 % (19-41); Mean Corpuscular Hgb 29.7 pg (27.0-32.0); Mean Corpuscular Volume 95.8 fL (81-99); Mean Platelet Vol. 11.2 fl (6.2-12.0); Monocyte% 6.5 % (0-10); NRBC Flagged by Analyzer 0 % (0-5); Neutrophil % 64.9 % (47-70); Platelet Count 238 K/mm3 (150-450); RBC Distribution Width CV 12.6 % (11.6-14.6); RBC Distribution Width SD 44.2 fl (35.1-43.9); White Blood Count 7.7 K/mm3 (4.4-11.0)
[2021-10-07 07:11] LABS: ALB/GLOB Ratio 0.7 RATIO (0.9-2.4); AST(SGOT) 31 U/L (15-37); Alanine Aminotransfer ALT/SGPT 30 U/L (13-56); Albumin, Serum 3.1 g/dL (3.2-5.0); Alkaline Phosphatase 128 U/L (45-117); Anion Gap 7 (5-15); BUN 13 mg/dL (7-18); BUN/Creat Ratio 20.1 RATIO (10-20); Calcium,Total 8.2 mg/dL (8.5-10.1); Chloride 101 mmol/L (98-107); Creatinine, Serum 0.65 mg/dL (0.55-1.02); EST Glomerular Filtration Rate 101 mL/min (>60); Est Glom Filt Rate - Afr Amer 122 mL/min (>60); Globulin 4.5 g/dL (2.2-4.2); Glucose 109 mg/dL (74-106); Potassium 3.6 mmol/L (3.5-5.1); Protein, Total 7.6 g/dL (6.4-8.2); Sodium Level 138 mmol/L (136-145)
[2021-10-07] MEDS: Ipratropium/Albuterol Sulfate 3 ML AMPUL.NEB INHALATION ×2 (07:22→19:38)
[2021-10-07] MEDS: Furosemide 20 MG Tablet PO (08:58)
[2021-10-07] MEDS: Ibuprofen 600 MG Tablet PO ×2 (08:58→18:33)
[2021-10-07] MEDS: lamoTRIgine 100 MG Tablet 200 MG PO ×2 (08:58→20:29)
[2021-10-07] MEDS: Enoxaparin 30 MG/0.3 ML Syringe SC ×2 (08:58→20:29)
[2021-10-07] MEDS: Aspirin 81 MG TAB.CHEW PO (08:58)
[2021-10-07] MEDS: Fluticasone 0.05% 1 SPRAY NASAL.SRY 2 SPRAY NASAL (10:29)
[2021-10-07] MEDS: Levothyroxine 112 MCG Tablet PO (10:30)
[2021-10-07] MEDS: dexAMETHasone 10 MG/ML Vial 6 MG IV (10:31)
[2021-10-07] MEDS: 0.9% Normal Saline 1,000 ML 75 ML IV (13:04)
--- NOTE | 2021-10-07 13:09 | PN.HOSP_ITS ---
Subjective Subjective Patient seen and examined. She still complains of feeling weak and tired. She remains on 4 L of oxygen. She is tachypneic and tachycardic. Review of systems otherwise negative. Objective Data Objective Data Vital Signs: Vital Signs Temp Pulse Resp BP Pulse Ox 98.8 F 118 H 22 H 116/59 L 93 10/07/21 12:02 10/07/21 12:02 10/07/21 12:02 10/07/21 12:02 10/07/21 12:02 Oxygen Flow Rate (L/min) 4 Oxygen Delivery Method Nasal Cannula Weight: 193 lb 9.054 oz Body Mass Index (BMI) 32.1 Intake & Output: Intake and Output for Last 24 Hours 10/05/21 10/06/21 10/07/21 23:59 23:59 23:59 Intake Total 1610 / 1610 300 / 300 Output Total 0 / 0 Balance 1610 / 1610 300 / 300 Lab / Micro Data Result Diagrams: 10/07/21 05:45 10/07/21 05:45 Labs: Laboratory Results - last 24 hr 10/06/21 14:44: Alkaline Phosphatase 126 H 10/07/21 05:45: WBC 7.7, RBC 3.60 L, Hgb 10.7 L, Hct 34.5 L, MCV 95.8, MCH 29.7, MCHC 31.0 L D, RDW Std Deviation 44.2 H, RDW Coeff of Lino 12.6, Plt Count 238, MPV 11.2, Immature Gran % (Auto) 0.600, Neut % (Auto) 64.9, Lymph % (Auto) 26.1, [place] % (Auto) 6.5, Eos % (Auto) 1.8, Baso % (Auto) 0.1, Absolute Neuts (auto) 5.0, Absolute Lymphs (auto) 2.01, Nucleated RBC % 0 10/07/21 05:45: Sodium 138, Potassium 3.6, Chloride 101, Carbon Dioxide 30.0, Anion Gap 7, BUN 13, Creatinine 0.65, Estim Creat Clear Calc 88.00, Est GFR (MDRD) Af Amer 122, Est GFR (MDRD) Non-Af 101, BUN/Creatinine Ratio 20.1 H, Glucose 109 H, Calcium 8.2 L, Total Bilirubin 0.20, AST 31, ALT 30, Alkaline Phosphatase 128 H, Total Protein 7.6, Albumin 3.1 L, Globulin 4.5 H, Albumin/G lobulin Ratio 0.7 L Micro: Microbiology 10/07/21 04:00 Sputum, Expectorated/Coughed Gram Stain - Final 10/06/21 18:30 Urine, Clean Catch Legionella Antigen - Final 10/06/21 18:30 Urine, Clean Catch Streptococcus pneumoniae Antigen (M - Final 10/06/21 09:55 Nasal Secretion SARS-CoV-2 Antigen (Rapid) - Final SARS-CoV-2 (COVID 19) Physical Exam Const alert and oriented x3 General Appearance: cooperative Orientation / Consciousness: lethargic Exam Limitations: no limitations HEENT normocephalic, head/scalp atraumatic and hearing grossly normal bilaterally Head and Scalp: normocephalic Mouth: dry mucous membranes Eyes PERRL, EOMs intact bilaterally and conjunctivae normal Neck no lymphadenopathy Resp Resp Narrative: Diminished breath sounds bibasilarly. No wheezes or crackles. On 4 L of oxygen. Tachypneic Cardio regular rhythm, S1 normal heart sound and S2 normal heart sound Cardio Narrative: tachycardic GI normal to inspection, nondistended, normoactive bowel sounds, soft to palpation, non-tender and non-distended Extremity normal to inspection and full ROM Peripheral Pulses: Yes pulses 2+ throughout Skin no rashes or lesions noted Neuro oriented x3, CN's II-XII intact bilaterally and moves all extremities Sensorium / Orientation: awake and alert Psych Mood & Affect: anxious Assessment & Plan Assessment/Plan (1) COVID-19: PLAN: #COVID 19 pneumonia * remdesivir and decadron. Patient now tells me that she does not want remdesivir because her niece's boyfriend's dad got Covid and after he received remdesivir. * Currently on 4 L of oxygen. Titrate oxygen to maintain saturation above 90%. * check urine for strep and legionella * breathing treatment with bronchodilators * Incentive spirometry * will check D dimer as she is tachypneic and tachycardic * #Chronic respiratory failure due to COPD * now on 4L of oxygen. Titrate oxygen to maintain sats >90% * breathing treatment with bronchodilators. * #Hypertension; on atenolol. #Bipolar disorder and depression:on fluoxetine. #Hyperlipidemia: On rosuvastatin. #Chronic diastolic heart failure * On Lasix 20 mg daily. * #GERD: on PPI. #Hypothyroidism; on synthroid. #Seizure disorder: on lamotrigine. DVT prophylaxis: lovenox CODE STATUS: Full code * Charges/Coding Visit Charges Inpatient E&M: 62815 Subs Hosp L3
--- NOTE | 2021-10-07 14:46 | CT_ITS ---
STUDY: CTA CHEST REASON FOR EXAM: Female, 56 years old. tachycardia, shortness of breath RADIATION DOSAGE (If Supplied By Facility): CTDIvol = ( 13.41 ) mGy, DLP = ( 441.57 ) mGycm TECHNIQUE: The examination was performed with the intravenous administration of IV 100mL Isovue-370. Post-processing of the angiographic images was performed, with multiplanar reformation and 3D reconstruction. Individualized dose optimization techniques were used for this CT. COMPARISON: None. FINDINGS: Normal enhancement of the main pulmonary artery and right and left pulmonary arteries. Normal enhancement of the bilateral peripheral pulmonary arteries. There is no demonstrated pulmonary embolism. There is atherosclerotic calcification of the aortic arch with tortuosity. There is no demonstrated aortic dissection. Normal heart and pericardium. Normal mediastinum. Normal hilar regions. Normal visualized trachea and bronchi. The lungs are well expanded. Multilobar airspace consolidation predominantly involving the left more than right lower lobe but also partial involvement of the bilateral upper lobes. No cavitating process. Centrilobular emphysema. Normal pleura. Normal chest wall structures. Normal osseous structures. Normal visualized upper abdomen. CT/CTA Chest W/WO Contrast IMPRESSION: 1. No central or segmental pulmonary embolism. 2. Multilobar airspace disease suggesting pneumonia. Electronically Signed: Reid Daniel MD ([place]) at 16:12 EST , Service support ,
[2021-10-07 15:35] LABS: D-Dimer Quantitative (DVT/PE) 0.81 FEU/ug/m (0.27-0.49)
--- NOTE | 2021-10-07 17:55 | CASEMGMT ---
RN CM [employer] CM to room to meet with patient for initial transition planning/care coordination assessment. RN SOY introduced self and role at [facility]. Pt voices understanding and consents to assessment at this time. SonJose, facetiming w/pt when RN SOY entered room and pt wishes for son to stay on facetime during assessment. Pt is A/O at this time. Care providers, pharmacy, and demographics verified/updated at this time. PCP: Dr Richter Specialists: Dr Merino-cardiology, Dr Quispe and Sarah Zhou, TOOL ROOM GEAR MACHINE OPERATOR--pulmonology Preferred Pharmacy: [facility] Insurance:[facility] Prescription Benefit: Yes Living Will/HPOA: Pt does not currently have LW/HCPOA and is interested in talking w/SW to complete. DIEGO Steve, made aware. Pt made aware SW would not be available until Sunday. She was made aware, if she is d/c'd home prior to Sunday, that she could meet w/SW as an OP to complete AD once she is out of isolation. LNOK: SonJose. Has a disabled dtr. Living Arrangements: Lives w/her son and disabled dtr who she takes care of. They live in a one-story home w/2-3 steps to enter. Pt independent @ PLOF before COVID illness. Transportation: Pt states drives self and states no transportation concerns at this time. Son also drives DME: States has the following DME: Nebulizer. O2 @ 2l/m @ HS only through [employer]. Pt has concentrator and large E-tanks. She does not have smaller portable O2 tanks. Pt and son made aware [facility] does not have smaller portable tanks for pt to go home on over the weekend. Son states the tank pt has is pretty big, but he would be able to bring in the car when picking up pt up for pt to go home on if she needs it. Pt denies need for further DME at this time. HHC/SNF: Pt has been to a SNF in the past and has had HHC. She denies need for HHC at this time. Pt wishes to return home and states has no concerns with going home at time of discharge. CM or nursing to follow for home oxygen needs and any further discharge planning/needs. Pt voices no further concerns/needs at this time. Advised pt to ask for CM if any further questions/concerns/needs arise. Voices understanding. PLAN: Home. Pt has O2 @ HS only. If pt qualifies for O2 @ rest or w/exertion, she will need new script for O2. Green sheet placed on chart w/instructions. If pt discharges home over the weekend, son can bring large O2 tank in the car for pt to go home on. Jaki REALN RN CM
[2021-10-07] MEDS: levoFLOXacin IV 750 MG/150 ML BAG 100 MG IV (18:00)
[2021-10-07] MEDS: FLUoxetine 20 MG Capsule 40 MG PO (22:07)
[2021-10-07] MEDS: LORazepam 2 MG/ML Syringe 1 MG IV (22:07)
[2021-10-08] VITALS (14 sets, daily range): BP systolic 97–123; BP diastolic 49–64; PULSE 102–120; RESP 18–24; TEMP 36.1–37.9; O2SAT 91–97
[2021-10-08] MEDS: 0.9% Normal Saline 1,000 ML 75 ML IV (02:21)
[2021-10-08] MEDS: 0.9% Saline Lock 10 ML Syringe IV (02:21)
[2021-10-08] MEDS: NYSTATIN 500,000 UNIT/5 ML UDC 500000 UNIT PO ×3 (05:37→21:57)
[2021-10-08 05:58] LABS: Absolute Lymphocyte Count 1.41 X10^3/uL (0.83-4.51); Basophil# 0.01 X10^3/uL; Basophil% 0.1 % (0-1); Hemoglobin 10.1 g/dL (12.0-15.0); Lymphocyte # 1.41 X10^3/ul (0.83-4.51); Lymphocyte % 18.2 % (19-41); Mean Corp Hgb Conc 31.6 g/dL (32-36); Mean Platelet Vol. 11.3 fl (6.2-12.0); Monocyte# 0.26 X10^3/uL; Monocyte% 3.4 % (0-10); NRBC Flagged by Analyzer 0 % (0-5); Neutrophil # 6.02 X10^3/uL (2.7-7.7); Neutrophil % 77.5 % (47-70); POSITIVE MORPHOLOGY YES; Platelet Count 213 K/mm3 (150-450); RBC Distribution Width SD 45.6 fl (35.1-43.9); Red Blood Count 3.37 M/mm3 (4.2-5.4); White Blood Count 7.8 K/mm3 (4.4-11.0)
[2021-10-08 06:09] LABS: Differential Indicated SCAN CRITERIA MET
[2021-10-08 06:47] LABS: ALB/GLOB Ratio 0.7 RATIO (0.9-2.4); AST(SGOT) 34 U/L (15-37); Alanine Aminotransfer ALT/SGPT 27 U/L (13-56); Albumin, Serum 2.7 g/dL (3.2-5.0); Alkaline Phosphatase 107 U/L (45-117); Anion Gap 8 (5-15); BUN 12 mg/dL (7-18); BUN/Creat Ratio 16.1 RATIO (10-20); Calcium,Total 7.8 mg/dL (8.5-10.1); Chloride 101 mmol/L (98-107); Creatinine, Serum 0.75 mg/dL (0.55-1.02); EST Glomerular Filtration Rate 85 mL/min (>60); Est Glom Filt Rate - Afr Amer 103 mL/min (>60); Estimated Creatinine Clearance 76.26 ml/min; Glucose 117 mg/dL (74-106); Potassium 3.3 mmol/L (3.5-5.1); Protein, Total 6.7 g/dL (6.4-8.2); Sodium Level 137 mmol/L (136-145)
[2021-10-08] MEDS: Ipratropium/Albuterol Sulfate 3 ML AMPUL.NEB INHALATION ×3 (06:57→20:00)
[2021-10-08] MEDS: Acetaminophen 325 MG Tablet 650 MG PO ×2 (08:26→22:03)
[2021-10-08] MEDS: Potassium Chloride Oral Tablet 20 MEQ 40 MEQ PO (08:26)
[2021-10-08] MEDS: levoFLOXacin IV 750 MG/150 ML BAG 100 MG IV (08:26)
[2021-10-08] MEDS: dexAMETHasone 10 MG/ML Vial 6 MG IV (08:27)
[2021-10-08] MEDS: Pantoprazole Sodium 40 MG Tablet PO (08:27)
[2021-10-08] MEDS: Aspirin 81 MG TAB.CHEW PO (08:27)
[2021-10-08] MEDS: lamoTRIgine 100 MG Tablet 200 MG PO ×2 (08:27→21:57)
[2021-10-08] MEDS: Levothyroxine 112 MCG Tablet PO (08:27)
[2021-10-08] MEDS: Atenolol 25 MG Tablet PO (08:27)
[2021-10-08] MEDS: FLUoxetine 20 MG Capsule 40 MG PO ×2 (08:27→21:57)
[2021-10-08] MEDS: Enoxaparin 30 MG/0.3 ML Syringe SC ×2 (08:28→21:57)
[2021-10-08] MEDS: Fluticasone 0.05% 1 SPRAY NASAL.SRY 2 SPRAY NASAL (08:28)
[2021-10-08] MEDS: Furosemide 20 MG Tablet PO (08:28)
--- NOTE | 2021-10-08 12:49 | PN.HOSP_ITS ---
Subjective Subjective Patient seen and examined. She had no active complaints today. She was agreeable to resuming remdesivir yesterday so this was continued. She is on 3 L today. Review of systems otherwise negative. Objective Data Objective Data Vital Signs: Vital Signs Temp Pulse Resp BP Pulse Ox 99.7 F H 110 H 18 113/56 L 94 10/08/21 08:22 10/08/21 11:03 10/08/21 08:22 10/08/21 08:22 10/08/21 12:00 Oxygen Flow Rate (L/min) 3 Oxygen Delivery Method Nasal Cannula Weight: 193 lb 9.054 oz Body Mass Index (BMI) 32.1 Intake & Output: Intake and Output for Last 24 Hours 10/06/21 10/07/21 10/08/21 23:59 23:59 23:59 Intake Total 1610 / 1610 850 / 850 2181.25 / 2181.25 Output Total 500 / 500 Balance 1610 / 1610 350 / 350 2181.25 / 2181.25 Lab / Micro Data Result Diagrams: 10/08/21 04:35 10/08/21 04:35 Labs: Laboratory Results - last 24 hr 10/07/21 14:43: D-Dimer Quant (PE/DVT) 0.81 H* 10/08/21 04:35: WBC 7.8, RBC 3.37 L, Hgb 10.1 L, Hct 32.0 L, MCV 95.0, MCH 30.0, MCHC 31.6 L, RDW Std Deviation 45.6 H, RDW Coeff of Lino 13.0, Plt Count 213, MPV 11.3, Immature Gran % (Auto) 0.800, Neut % (Auto) 77.5 H, Lymph % (Auto) 18.2 L, [place] % (Auto) 3.4, Eos % (Auto) 0.0, Baso % (Auto) 0.1, Absolute Neuts (auto) 6.0, Absolute Lymphs (auto) 1.41, Nucleated RBC % 0 10/08/21 04:35: Sodium 137, Potassium 3.3 L, Chloride 101, Carbon Dioxide 28.0, Anion Gap 8, BUN 12, Creatinine 0.75, Estim Creat Clear Calc 76.26, Est GFR (MDRD) Af Amer 103, Est GFR (MDRD) Non-Af 85, BUN/Creatinine Ratio 16.1, Glucose 117 H, Calcium 7.8 L, Total Bilirubin 0.40, AST 34, ALT 27, Alkaline Phosphatase 107, Total Protein 6.7, Albumin 2.7 L, Globulin 4.0, Albumin/Globulin Ratio 0.7 L Micro: Microbiology 10/07/21 04:00 Sputum, Expectorated/Coughed Gram Stain - Final 10/07/21 04:00 Sputum, Expectorated/Coughed Respiratory Culture - Preliminary Alpha Hemolytic Streptococcus 10/06/21 12:04 Blood Culture (Wb) - Right Hand Blood Culture - Preliminary No growth in 48 hours. 10/06/21 09:03 Blood Culture (Wb) - Left Hand Blood Culture - Preliminary No growth in 48 hours. 10/06/21 18:30 Urine, Clean Catch Legionella Antigen - Final 10/06/21 18:30 Urine, Clean Catch Streptococcus pneumoniae Antigen (M - Final 10/06/21 09:55 Nasal Secretion SARS-CoV-2 Antigen (Rapid) - Final SARS-CoV-2 (COVID 19) Radiography Diagnostic Testing: Radiology Impression Chest CTA 10/07/21 14:46 IMPRESSION: 1. No central or segmental pulmonary embolism. 2. Multilobar airspace disease suggesting pneumonia. Electronically Signed: Reid Daniel MD ([place]) at 16:12 EST , Service support , Physical Exam Const alert and oriented x3 General Appearance: cooperative Orientation / Consciousness: lethargic Exam Limitations: no limitations HEENT normocephalic, head/scalp atraumatic, hearing grossly normal bilaterally and moist oral mucous membranes Head and Scalp: normocephalic Eyes PERRL, EOMs intact bilaterally and conjunctivae normal Neck no lymphadenopathy Resp Resp Narrative: Diminished breath sounds bibasilarly. No wheezes or crackles. On 3 L of oxygen. Cardio regular rate, regular rhythm, S1 normal heart sound and S2 normal heart sound GI normal to inspection, nondistended, normoactive bowel sounds, soft to palpation, non-tender and non-distended Extremity normal to inspection, full ROM and no clubbing, cyanosis or edema Peripheral Pulses: Yes pulses 2+ throughout Skin no rashes or lesions noted Neuro oriented x3, CN's II-XII intact bilaterally and moves all extremities Sensorium / Orientation: awake and alert Psych affect normal Mood & Affect: anxious Assessment & Plan Assessment/Plan (1) COVID-19: PLAN: #COVID 19 pneumonia * patient finally agreed to resume remdesivir. she is on decadron and remdesivir. * Currently on 3 L of oxygen. Titrate oxygen to maintain saturation above 90%. * urine for strep and legionella were negative. Sputum culture growing alpha hemolytic streptococcus * breathing treatment with bronchodilators * Incentive spirometry * CTA was negative for pE * on IV levofloxacin due to sputum culture results. * #Chronic respiratory failure due to COPD * now on 4L of oxygen. Titrate oxygen to maintain sats >90% * breathing treatment with bronchodilators. * #Hypertension; on atenolol. #Hypokalemia: K is 3.3 today. Will replace and trend. #Bipolar disorder and depression:on fluoxetine. #Hyperlipidemia: On rosuvastatin. #Chronic diastolic heart failure * On Lasix 20 mg daily. * #GERD: on PPI. #Hypothyroidism; on synthroid. #Seizure disorder: on lamotrigine. DVT prophylaxis: lovenox CODE STATUS: Full code * Charges/Coding Visit Charges Inpatient E&M: 25220 Subs Hosp L2
[2021-10-08] MEDS: diazePAM 5 MG Tablet PO (17:13)
[2021-10-09] VITALS (16 sets, daily range): BP systolic 100–110; BP diastolic 50–79; PULSE 90–103; RESP 16–24; TEMP 36.3–36.7; O2SAT 4–97
[2021-10-09] MEDS: NYSTATIN 500,000 UNIT/5 ML UDC 500000 UNIT PO ×3 (05:36→22:57)
[2021-10-09 06:57] LABS: Absolute Lymphocyte Count 2.63 X10^3/uL (0.83-4.51); Absolute Neutrophil Count 7.6 X10^3/uL (2.0-7.7); Basophil# 0.02 X10^3/uL; Basophil% 0.2 % (0-1); Hematocrit 29.4 % (37-47); Hemoglobin 9.4 g/dL (12.0-15.0); Lymphocyte # 2.63 X10^3/ul (0.83-4.51); Lymphocyte % 24.2 % (19-41); Mean Corpuscular Hgb 30.3 pg (27.0-32.0); Mean Corpuscular Volume 94.8 fL (81-99); Mean Platelet Vol. 11.2 fl (6.2-12.0); Monocyte# 0.34 X10^3/uL; Monocyte% 3.1 % (0-10); NRBC Flagged by Analyzer 0 % (0-5); Neutrophil # 7.64 X10^3/uL (2.7-7.7); Neutrophil % 70.3 % (47-70); POSITIVE MORPHOLOGY YES; Platelet Count 230 K/mm3 (150-450); RBC Distribution Width CV 13.2 % (11.6-14.6); RBC Distribution Width SD 45.8 fl (35.1-43.9); White Blood Count 10.9 K/mm3 (4.4-11.0)
[2021-10-09] MEDS: Ipratropium/Albuterol Sulfate 3 ML AMPUL.NEB INHALATION ×3 (07:02→20:42)
[2021-10-09 07:19] LABS: ALB/GLOB Ratio 0.6 RATIO (0.9-2.4); AST(SGOT) 29 U/L (15-37); Alanine Aminotransfer ALT/SGPT 23 U/L (13-56); Albumin, Serum 2.3 g/dL (3.2-5.0); Alkaline Phosphatase 91 U/L (45-117); Anion Gap 5 (5-15); BUN 11 mg/dL (7-18); BUN/Creat Ratio 20.1 RATIO (10-20); Calcium,Total 8.5 mg/dL (8.5-10.1); Chloride 105 mmol/L (98-107); Creatinine, Serum 0.55 mg/dL (0.55-1.02); EST Glomerular Filtration Rate 122 mL/min (>60); Est Glom Filt Rate - Afr Amer 148 mL/min (>60); Globulin 4.1 g/dL (2.2-4.2); Glucose 93 mg/dL (74-106); Potassium 3.5 mmol/L (3.5-5.1); Protein, Total 6.4 g/dL (6.4-8.2); Sodium Level 140 mmol/L (136-145)
[2021-10-09 07:33] LABS: Differential Indicated SCAN CRITERIA MET
[2021-10-09 08:50] LABS: Hypochromasia RARE; Platelet Estimate ADEQUATE (ADEQ)
[2021-10-09] MEDS: Pantoprazole Sodium 40 MG Tablet PO (09:00)
[2021-10-09] MEDS: Enoxaparin 30 MG/0.3 ML Syringe SC ×2 (09:00→22:57)
[2021-10-09] MEDS: Aspirin 81 MG TAB.CHEW PO (09:00)
[2021-10-09] MEDS: Furosemide 20 MG Tablet PO (09:01)
[2021-10-09] MEDS: lamoTRIgine 100 MG Tablet 200 MG PO ×2 (09:01→22:57)
[2021-10-09] MEDS: FLUoxetine 20 MG Capsule 40 MG PO ×2 (09:01→22:57)
[2021-10-09] MEDS: Levothyroxine 112 MCG Tablet PO (09:01)
[2021-10-09] MEDS: dexAMETHasone 10 MG/ML Vial 6 MG IV (09:42)
[2021-10-09] MEDS: Fluticasone 0.05% 1 SPRAY NASAL.SRY 2 SPRAY NASAL (09:44)
[2021-10-09] MEDS: levoFLOXacin IV 750 MG/150 ML BAG 100 MG IV (09:44)
[2021-10-09] MEDS: Atenolol 25 MG Tablet PO (09:45)
--- NOTE | 2021-10-09 10:34 | PN.HOSP_ITS ---
Subjective Subjective Patient seen and examined. She still feels weak and lethargic. She is on 4L of oxygen. She is still coughing up sputum. REview of sytems is otherwise negative. Objective Data Objective Data Vital Signs: Vital Signs Temp Pulse Resp BP Pulse Ox 97.3 F L 103 H 20 H 106/64 92 10/09/21 05:40 10/09/21 07:49 10/09/21 07:03 10/09/21 05:40 10/09/21 09:53 Oxygen Flow Rate (L/min) 3 Oxygen Delivery Method Nasal Cannula Weight: 193 lb 9.054 oz Body Mass Index (BMI) 32.1 Intake & Output: Intake and Output for Last 24 Hours 10/07/21 10/08/21 10/09/21 23:59 23:59 23:59 Intake Total 850 / 850 3141.25 / 3141.25 Output Total 500 / 500 300 / 300 0 / 0 Balance 350 / 350 2841.25 / 2841.25 0 / 0 Lab / Micro Data Result Diagrams: 10/09/21 06:15 10/09/21 06:15 Labs: Laboratory Results - last 24 hr 10/09/21 06:15: WBC 10.9, RBC 3.10 L, Hgb 9.4 L, Hct 29.4 L, MCV 94.8, MCH 30.3, MCHC 32.0, RDW Std Deviation 45.8 H, RDW Coeff of Lino 13.2, Plt Count 230, MPV 11.2, Immature Gran % (Auto) 2.200 H, Neut % (Auto) 70.3 H, Lymph % (Auto) 24.2, [place] % (Auto) 3.1, Eos % (Auto) 0.0, Baso % (Auto) 0.2, Absolute Neuts (auto) 7.6, Absolute Lymphs (auto) 2.63, Nucleated RBC % 0, Platelet Estimate ADEQUATE, Hypochromasia RARE 10/09/21 06:15: Sodium 140, Potassium 3.5, Chloride 105, Carbon Dioxide 30.0, Anion Gap 5, BUN 11, Creatinine 0.55, Estim Creat Clear Calc 104.00, Est GFR (MDRD) Af Amer 148, Est GFR (MDRD) Non-Af 122, BUN/Creatinine Ratio 20.1 H, Glucose 93, Calcium 8.5, Total Bilirubin 0.20, AST 29, ALT 23, Alkaline Phosphat ase 91, Total Protein 6.4, Albumin 2.3 L, Globulin 4.1, Albumin/Globulin Ratio 0.6 L Micro: Microbiology 10/07/21 04:00 Sputum, Expectorated/Coughed Gram Stain - Final 10/07/21 04:00 Sputum, Expectorated/Coughed Respiratory Culture - Final Streptococcus pneumoniae 10/06/21 12:04 Blood Culture (Wb) - Right Hand Blood Culture - Preliminary No growth in 48 hours. 10/06/21 09:03 Blood Culture (Wb) - Left Hand Blood Culture - Preliminary No growth in 48 hours. 10/06/21 18:30 Urine, Clean Catch Legionella Antigen - Final 10/06/21 18:30 Urine, Clean Catch Streptococcus pneumoniae Antigen (M - Final 10/06/21 09:55 Nasal Secretion SARS-CoV-2 Antigen (Rapid) - Final SARS-CoV-2 (COVID 19) Physical Exam Const alert, oriented x3 and no apparent distress General Appearance: cooperative Exam Limitations: no limitations HEENT normocephalic, head/scalp atraumatic, hearing grossly normal bilaterally and moist oral mucous membranes Head and Scalp: normocephalic Eyes PERRL, EOMs intact bilaterally and conjunctivae normal Neck no lymphadenopathy Resp Resp Narrative: Diminished breath sounds bibasilarly. No wheezes or crackles. On 4 L of oxygen. Cardio regular rate, regular rhythm, S1 normal heart sound and S2 normal heart sound Cardio Narrative: tachycardic GI normal to inspection, nondistended, normoactive bowel sounds, soft to palpation, non-tender and non-distended Extremity normal to inspection, full ROM and no clubbing, cyanosis or edema Peripheral Pulses: Yes pulses 2+ throughout Skin no rashes or lesions noted Neuro oriented x3, CN's II-XII intact bilaterally and moves all extremities Sensorium / Orientation: awake and alert Psych affect normal Assessment & Plan Assessment/Plan (1) COVID-19: PLAN: #COVID 19 pneumonia * on remdesivir and decadron. * Currently on 3-4 L of oxygen. Titrate oxygen to maintain saturation above 90%. * urine for strep and legionella were negative. Sputum culture growing Strep pneumoniae * breathing treatment with bronchodilators * Incentive spirometry * CTA was negative for pE * on IV levofloxacin * blood cultures are negative. * #Chronic respiratory failure due to COPD * now on 3-4L of oxygen. Titrate oxygen to maintain sats >90% * breathing treatment with bronchodilators. * #Hypertension; on atenolol. #Hypokalemia: K is 3.5 today. Will monitor and trend. #Bipolar disorder and depression:on fluoxetine. #Hyperlipidemia: On rosuvastatin. #Chronic diastolic heart failure * On Lasix 20 mg daily. * #GERD: on PPI. #Hypothyroidism; on synthroid. #Seizure disorder: on lamotrigine. DVT prophylaxis: lovenox CODE STATUS: Full code * Disposition: anticipate discharge over the next 24-48 hours. SHe still is feeling a bit weak today. Charges/Coding Visit Charges Inpatient E&M: 30863 Subs Hosp L2
[2021-10-09] MEDS: Acetaminophen 325 MG Tablet 650 MG PO (13:52)
[2021-10-09] MEDS: diazePAM 5 MG Tablet PO ×2 (13:52→23:45)
[2021-10-09] MEDS: guaiFENesin 10 ML UDC (200MG/10ML) 20 ML PO (23:00)
[2021-10-10] VITALS (11 sets, daily range): BP systolic 97–101; BP diastolic 62–65; PULSE 82–92; RESP 18–22; TEMP 36.1–36.6; O2SAT 89–97
[2021-10-10] MEDS: Acetaminophen 325 MG Tablet 650 MG PO (03:04)
[2021-10-10] MEDS: NYSTATIN 500,000 UNIT/5 ML UDC 500000 UNIT PO ×2 (03:04→11:28)
[2021-10-10] MEDS: Ondansetron 4 MG/2 ML Vial IV (03:07)
[2021-10-10] MEDS: 0.9% Saline Lock 10 ML Syringe IV (03:07)
[2021-10-10 06:55] LABS: Absolute Lymphocyte Count 1.86 X10^3/uL (0.83-4.51); Basophil# 0.02 X10^3/uL; Basophil% 0.2 % (0-1); Hematocrit 29.4 % (37-47); Hemoglobin 9.4 g/dL (12.0-15.0); Lymphocyte # 1.86 X10^3/ul (0.83-4.51); Lymphocyte % 19.3 % (19-41); Mean Corpuscular Hgb 30.3 pg (27.0-32.0); Mean Corpuscular Volume 94.8 fL (81-99); Mean Platelet Vol. 11.4 fl (6.2-12.0); Monocyte# 0.44 X10^3/uL; Monocyte% 4.6 % (0-10); NRBC Flagged by Analyzer 0 % (0-5); Neutrophil # 7.03 X10^3/uL (2.7-7.7); POSITIVE MORPHOLOGY YES; Platelet Count 264 K/mm3 (150-450); RBC Distribution Width CV 13.2 % (11.6-14.6); RBC Distribution Width SD 45.6 fl (35.1-43.9); White Blood Count 9.6 K/mm3 (4.4-11.0)
[2021-10-10 07:00] LABS: Differential Indicated SCAN CRITERIA MET
[2021-10-10] MEDS: Ipratropium/Albuterol Sulfate 3 ML AMPUL.NEB INHALATION ×2 (07:04→14:18)
[2021-10-10 07:11] LABS: ALB/GLOB Ratio 0.5 RATIO (0.9-2.4); AST(SGOT) 32 U/L (15-37); Alanine Aminotransfer ALT/SGPT 23 U/L (13-56); Albumin, Serum 2.2 g/dL (3.2-5.0); Alkaline Phosphatase 90 U/L (45-117); Anion Gap 5 (5-15); BUN 13 mg/dL (7-18); BUN/Creat Ratio 23.6 RATIO (10-20); Calcium,Total 8.6 mg/dL (8.5-10.1); Chloride 106 mmol/L (98-107); Creatinine, Serum 0.55 mg/dL (0.55-1.02); EST Glomerular Filtration Rate 121 mL/min (>60); Est Glom Filt Rate - Afr Amer 147 mL/min (>60); Globulin 4.1 g/dL (2.2-4.2); Glucose 106 mg/dL (74-106); Potassium 3.5 mmol/L (3.5-5.1); Protein, Total 6.3 g/dL (6.4-8.2); Sodium Level 141 mmol/L (136-145)
[2021-10-10 07:28] LABS: Atypical Lymphocyte 1+ %
[2021-10-10] MEDS: Atenolol 25 MG Tablet PO (10:43)
[2021-10-10] MEDS: Enoxaparin 30 MG/0.3 ML Syringe SC (10:43)
[2021-10-10] MEDS: Levothyroxine 112 MCG Tablet PO (10:43)
[2021-10-10] MEDS: Aspirin 81 MG TAB.CHEW PO (10:44)
[2021-10-10] MEDS: dexAMETHasone 10 MG/ML Vial 6 MG IV (10:44)
[2021-10-10] MEDS: FLUoxetine 20 MG Capsule 40 MG PO (10:44)
[2021-10-10] MEDS: lamoTRIgine 100 MG Tablet 200 MG PO (10:44)
[2021-10-10] MEDS: Furosemide 20 MG Tablet PO (10:44)
[2021-10-10] MEDS: Pantoprazole Sodium 40 MG Tablet PO (10:44)
[2021-10-10] MEDS: Fluticasone 0.05% 1 SPRAY NASAL.SRY 2 SPRAY NASAL (10:45)
[2021-10-10] MEDS: levoFLOXacin IV 750 MG/150 ML BAG 100 MG IV (13:24)
--- NOTE | 2021-10-10 14:14 | CHAPLAIN ---
Type of Pastoral Visit ___ Initial Visit ___ Follow-up Visit ___ On-call Visit ___ General Patient Visit ___ Spiritual Assessment ___ Family Conference ___ Bereavement ___ Rapid Response ___ Code Blue ___ Other (describe below) Pastoral Care Referral From ___ Patient ___ Family ___ Nurse ___ Physician ___ Jd Edwards ___ Interior Block Wirer ___ Other (describe below) Sacrament/Intervention ___ Active listening ___ Anointing ___ Christian ___ Bereavement ___ Communion ___ Nicole exploration ___ ___ Life review ___ Prayer ___ Reconciliation ___ Sacrament of Sick ___ Supportive presence ___ Wedding ___ Other (describe below) Pastoral Comments phone call attempted for isolation room but phone voicemail came on and no ability to leave a message
--- NOTE | 2021-10-10 15:33 | PCM.DC ---
Discharge Instructions Diet Discharge Diet: Low fat / Low cholesterol Activity Discharge Activity: Return to Normal Activity Dressing / Incision Call your doctor if you observe: Fever of 101 or Higher, Shortness of breath, Dizziness, Fainting spells, Swelling in the ankles, Chest pain and Increased palpitations (irregular heartbeat) Follow Up Care Test Results: Test results from this visit will be discussed in further detail at your follow-up appointment, if applicable. Discharge Plan Admission Admit Date/Time: 10/06/21 10:44 Attending Provider: Noe Lin Primary Care Provider: Sofy Richter Instructions Additional Instructions / Restrictions: Complete the dexamethasone you had in your medical record as an outpatient. We will also complete 3 more days of antibiotics. Follow-up with your primary care doctor within a week and remains quarantine for 20 days since the onset of symptoms. Discharge Orders/Prescriptions Prescriptions: New levofloxacin 750 mg tablet 750 mg PO DAILY Qty: 3 RF: 0 Continued promethazine 25 mg tablet 1 tab PO PRN PRN (Reason: Nausea) 30 Days Qty: 90 RF: 0 zrdijtxqep-pwcmzhdcrbysl-nqcc 50-325-40 mg tablet 1 tab PO PRN PRN (Reason: Migraine Symptoms) 30 Days Qty: 90 RF: 0 cyclobenzaprine 10 mg tablet 20 mg PO Q6H PRN (Reason: MUSCLE SPASMS) RF: 0 levothyroxine 112 mcg tablet 112 mcg PO DAILY RF: 0 furosemide 20 mg tablet 20 mg PO DAILY RF: 0 pantoprazole 40 mg tablet,delayed release (DR/EC) 40 mg PO DAILY RF: 0 nystatin 100,000 unit/mL suspension 5 ml mucous membrane TID Qty: 250 RF: 1 dexamethasone [Decadron] 4 mg tablet 4 mg PO DAILY Qty: 5 RF: 0 lamotrigine 200 MG tablet,disintegrating 200 mg PO BID RF: 0 aspirin 81 MG tablet,chewable 81 mg PO DAILY RF: 0 fluoxetine 20 MG capsule 40 mg PO BID RF: 0 diazepam 5 MG tablet 25 mg PO BID PRN PRN (Reason: Anxiety) RF: 0 ezetimibe 10 mg tablet 10 mg PO DAILY RF: 0 ibuprofen 600 mg tablet 600 mg PO TID PRN (Reason: pain) Qty: 42 RF: 0 atenolol 25 mg tablet 25 mg PO DAILY Qty: 90 RF: 4 albuterol sulfate 90 mcg/actuation HFA aerosol inhaler 2 puff inhalation Q4H PRN PRN (Reason: Wheezing) Qty: 1 RF: 6 albuterol sulfate 2.5 mg /3 mL (0.083 %) solution for nebulization 2.5 mg inhalation Q4HWA.RT Qty: 25 RF: 0 Symbicort 160-4.5 mcg/actuation HFA aerosol inhaler 2 puff INHALATION BID Qty: 10.2 RF: 11 prednisone 10 mg tablet 10 mg PO QDAY Qty: 30 RF: 0 fluticasone propionate 50 mcg/actuation spray,suspension 2 spray INTRANASAL DAILY Qty: 16 RF: 3 Discontinued ciprofloxacin HCl [ciprofloxacin HCl] 500 MG tablet 500 mg PO BID Qty: 14 RF: 0 Referrals / Follow Up: Sofy Richter DO [Primary Care Provider] - Within 1 Week Disposition Disposition (needs filled in before D/C Order can be placed): Home, Self Care
--- NOTE | 2021-10-10 16:28 | DS.PCM_ITS ---
Providers Date of Admission: 10/06/21 Primary Care Physician: Dr. Sofy Richter DO Reason For Visit: COVID 19 INFECTION Diagnosis Discharge Diagnosis (1) COVID-19: Status: Acute Code(s): U07.1 - COVID-19 Medications at Discharge Home Medications lamotrigine 200 mg PO BID 04/15/18 aspirin 81 mg PO DAILY tab.chew 04/21/18 diazepam 25 mg PO BID PRN PRN 06/22/18 fluoxetine 40 mg PO BID 06/22/18 tddagfwdji-njidvxzyrkiwq-hzkhaobm 50 mg-325 mg-40 mg tablet 1 tab PO PRN PRN 30 Days #90 tab 03/04/19 promethazine 25 mg tablet 1 tab PO PRN PRN 30 Days #90 tab 03/04/19 ibuprofen 600 mg tablet 600 mg PO TID PRN #42 tab 09/28/20 atenolol 25 mg tablet 25 mg PO DAILY #90 tab 11/12/20 cyclobenzaprine 10 mg tablet 20 mg PO Q6H PRN tab 02/03/21 furosemide 20 mg tablet 20 mg PO DAILY tab 02/03/21 levothyroxine 112 mcg tablet 112 mcg PO DAILY tab 02/03/21 pantoprazole 40 mg tablet,delayed release 40 mg PO DAILY tab 02/03/21 nystatin 100,000 unit/mL oral suspension 5 ml MUCOUS MEMBRANE TID #250 ml 04/18/21 albuterol sulfate 2.5 mg INHALATION Q4HWA.RT #25 vial.neb. 05/03/21 albuterol sulfate 90 mcg/actuation aerosol inhaler 2 puff INHALATION Q4H PRN PRN #1 inhaler 05/03/21 budesonide-formoterol HFA 160 mcg-4.5 mcg/actuation aerosol inhaler 2 puff INHALATION BID #10.2 g 05/03/21 prednisone 10 mg tablet 10 mg PO QDAY #30 tab 05/03/21 dexamethasone 4 mg tablet 4 mg PO DAILY #5 tab 07/19/21 fluticasone propionate 50 mcg/actuation nasal spray,suspension 2 spray INTRANASAL DAILY #16 g 08/11/21 ezetimibe 10 mg PO DAILY 10/06/21 levofloxacin 750 mg PO DAILY #3 tab 10/10/21 Hospital Course Operations None Procedures None Summary of Care Provided Minutes Spent on Discharge: 42 Hospital Course: Per HPI: ALEXEI FOWLER, is a 56 F with an extensive PMH as outlined below who presents with a complaint of shortness of breath. His symptoms started about 3 days prior to admission and she had associated cough, generalized body aches and fever and chills. Her cough was significant for production of yellowish sputum. She said all her family members had tested positive and she had done a Covid test at home but this was negative. Patient is unvaccinated. Patient has COPD usually wears about 2 to 3 L of oxygen at night but was now wearing it all the time so she decided to come into the ED. Vitals were blood pressure 109/66, pulse rate of 99, respiratory rate of 18 and temperature of 98.2 Fahrenheit. She was saturating at 96% on 2 L of oxygen. CBC was unremarkable and BMP was also unremarkable. Chest x-ray showed bilateral airspace opacification demonstrating increase in size consistent with the diagnosis of COVID-19 pneumonia. She has been admitted to be managed for acute hypoxic respiratory failure due to COVID-19 pneumonia. Hospital Course: 1. Acute on chronic hypoxic respiratory failure secondary to COVID-19 pneumonia?56-year-old female with a history of COPD who wears oxygen at night presented to the hospital requiring 3 to 4 L nasal cannula during the day. She was found to be positive for COVID-19. She also did have strep pneumonia on sputum culture as well that was being treated during this hospitalization with Levaquin. She is currently maintaining her oxygen saturations in the mid to low 90s on room air at rest and was 89% with ambulation. I discussed with her the benefit of staying for another day or 2 however she wants to go home. I did discuss with her the risks and benefits of discharge and she expressed understanding. We will plan to discharge her home with 3 more days of Levaquin to treat her pneumonia as she is allergic to penicillins. She also had Decadron on her medication list as well as prednisone on discharge she can continue to follow-up with her PCP as an outpatient. I also recommended 20-day quarantine from onset of symptoms. 2. COPD, hypertension, bipolar disorder, hyperlipidemia, chronic diastolic heart failure, GERD, hypothyroidism, seizure disorder all chronic medical conditions which complicate her care. Her home medications were continued where appropriate. Physical Exam Const alert, oriented x3 and no apparent distress General Appearance: cooperative HEENT normocephalic and moist oral mucous membranes Eyes PERRL, EOMs intact bilaterally and conjunctivae normal Neck supple and no JVD Resp normal respiratory effort, no retractions and no use of accessory muscles Auscultation: diminished lung sounds; Negative for crackles, rales, rhonchi or wheezes Cardio regular rate, regular rhythm, S1 normal heart sound, S2 normal heart sound and no murmurs GI soft to palpation, non-tender and non-distended; Negative for hepatosplenomegaly Extremity no clubbing, cyanosis or edema Skin no rashes or lesions noted Neuro no focal motor deficits and no sensory deficits noted Psych affect normal Appearance: appropriate Weight / BMI Weight Weight: 193 lb 9.054 oz Body Mass Index (BMI) 32.1 ABG / Lab / Microbiology Data Result Diagrams: 10/10/21 05:45 10/10/21 05:45 Laboratory: Laboratory Results - last 24 hr 10/10/21 05:45: WBC 9.6, RBC 3.10 L, Hgb 9.4 L, Hct 29.4 L, MCV 94.8, MCH 30.3, MCHC 32.0, RDW Std Deviation 45.6 H, RDW Coeff of Lino 13.2, Plt Count 264, MPV 11.4, Immature Gran % (Auto) 2.900 H, Neut % (Auto) 73.0 H, Lymph % (Auto) 19.3, [place] % (Auto) 4.6, Eos % (Auto) 0.0, Baso % (Auto) 0.2, Absolute Neuts (auto) 7.0, Absolute Lymphs (auto) 1.86, Nucleated RBC % 0, Atypical Lymphocytes 1+ 10/10/21 05:45: Sodium 141, Potassium 3.5, Chloride 106, Carbon Dioxide 30.0, Anion Gap 5, BUN 13, Creatinine 0.55, Estim Creat Clear Calc 104.00, Est GFR (MDRD) Af Amer 147, Est GFR (MDRD) Non-Af 121, BUN/Creatinine Ratio 23.6 H, Glucose 106, Calcium 8.6, Total Bilirubin 0.30, AST 32, ALT 23, Alkaline Phosphatase 90, Total Protein 6.3 L, Albumin 2.2 L, Globulin 4.1, Albumin/Globulin Ratio 0.5 L Microbiology: Microbiology 10/07/21 04:00 Sputum, Expectorated/Coughed Gram Stain - Final 10/07/21 04:00 Sputum, Expectorated/Coughed Respiratory Culture - Final Streptococcus pneumoniae 10/06/21 12:04 Blood Culture (Wb) - Right Hand Blood Culture - Preliminary No growth in 48 hours. 10/06/21 09:03 Blood Culture (Wb) - Left Hand Blood Culture - Preliminary No growth in 48 hours. 10/06/21 18:30 Urine, Clean Catch Legionella Antigen - Final 10/06/21 18:30 Urine, Clean Catch Streptococcus pneumoniae Antigen (M - Final 10/06/21 09:55 Nasal Secretion SARS-CoV-2 Antigen (Rapid) - Final SARS-CoV-2 (COVID 19) D/C Instructions Discharge Diet: Low fat / Low cholesterol Call your doctor if you observe: Fever of 101 or Higher, Shortness of breath, Dizziness, Fainting spells, Swelling in the ankles, Chest pain and Increased palpitations (irregular heartbeat) Meaningful Use Info Meaningful Use Diagnoses (Choose all that apply): None applicable Discharge Plan Admission Admit Date/Time: 10/06/21 10:44 Attending Provider: Noe Lin Primary Care Provider: Sofy Richter Instructions Additional Instructions / Restrictions: Complete the dexamethasone you had in your medical record as an outpatient. We will also complete 3 more days of antibiotics. Follow-up with your primary care doctor within a week and remains quarantine for 20 days since the onset of symptoms. Discharge Orders/Prescriptions Prescriptions: New levofloxacin 750 mg tablet 750 mg PO DAILY Qty: 3 RF: 0 Continued promethazine 25 mg tablet 1 tab PO PRN PRN (Reason: Nausea) 30 Days Qty: 90 RF: 0 qngenfhhqy-ytfxpsxpxvbgg-sdct 50-325-40 mg tablet 1 tab PO PRN PRN (Reason: Migraine Symptoms) 30 Days Qty: 90 RF: 0 cyclobenzaprine 10 mg tablet 20 mg PO Q6H PRN (Reason: MUSCLE SPASMS) RF: 0 levothyroxine 112 mcg tablet 112 mcg PO DAILY RF: 0 furosemide 20 mg tablet 20 mg PO DAILY RF: 0 pantoprazole 40 mg tablet,delayed release (DR/EC) 40 mg PO DAILY RF: 0 nystatin 100,000 unit/mL suspension 5 ml mucous membrane TID Qty: 250 RF: 1 dexamethasone [Decadron] 4 mg tablet 4 mg PO DAILY Qty: 5 RF: 0 lamotrigine 200 MG tablet,disintegrating 200 mg PO BID RF: 0 aspirin 81 MG tablet,chewable 81 mg PO DAILY RF: 0 fluoxetine 20 MG capsule 40 mg PO BID RF: 0 diazepam 5 MG tablet 25 mg PO BID PRN PRN (Reason: Anxiety) RF: 0 ezetimibe 10 mg tablet 10 mg PO DAILY RF: 0 ibuprofen 600 mg tablet 600 mg PO TID PRN (Reason: pain) Qty: 42 RF: 0 atenolol 25 mg tablet 25 mg PO DAILY Qty: 90 RF: 4 albuterol sulfate 90 mcg/actuation HFA aerosol inhaler 2 puff inhalation Q4H PRN PRN (Reason: Wheezing) Qty: 1 RF: 6 albuterol sulfate 2.5 mg /3 mL (0.083 %) solution for nebulization 2.5 mg inhalation Q4HWA.RT Qty: 25 RF: 0 Symbicort 160-4.5 mcg/actuation HFA aerosol inhaler 2 puff INHALATION BID Qty: 10.2 RF: 11 prednisone 10 mg tablet 10 mg PO QDAY Qty: 30 RF: 0 fluticasone propionate 50 mcg/actuation spray,suspension 2 spray INTRANASAL DAILY Qty: 16 RF: 3 Discontinued ciprofloxacin HCl [ciprofloxacin HCl] 500 MG tablet 500 mg PO BID Qty: 14 RF: 0 Referrals / Follow Up: Sofy Richter DO [Primary Care Provider] - Within 1 Week Disposition Disposition (needs filled in before D/C Order can be placed): Home, Self Care Charges/Coding Visit Charges Inpatient E&M: 93317 Disch Hosp
== END 2021-10-10 18:44 | disposition home or self-care (01) | DRG 137 ==
LOC: ED 11:01 → MS3 11:04
PROVIDERS: Admitting Provider Student in an Organized Health Care Education/Training Program; Emergency Provider Emergency Medicine; PCP Family Medicine; Visit Provider Family Medicine
DX: U07.1 COVID-19 (principal); J13 Pneumonia due to Streptococcus pneumoniae; J96.21 Acute and chronic respiratory failure with hypoxia; J96.22 Acute and chronic respiratory failure with hypercapnia; J12.82 Pneumonia due to coronavirus disease 2019; J44.0 Chronic obstructive pulmonary disease with (acute) lower respiratory infection; I11.0 Hypertensive heart disease with heart failure; I50.32 Chronic diastolic (congestive) heart failure; E03.9 Hypothyroidism, unspecified; E66.9 Obesity, unspecified; E78.5 Hyperlipidemia, unspecified; E87.6 Hypokalemia; F31.9 Bipolar disorder, unspecified; F90.9 Attention-deficit hyperactivity disorder, unspecified type; G40.909 Epilepsy, unspecified, not intractable, without status epilepticus; G89.29 Other chronic pain; I25.10 Atherosclerotic heart disease of native coronary artery without angina pectoris; I25.2 Old myocardial infarction; K21.9 Gastro-esophageal reflux disease without esophagitis; M19.90 Unspecified osteoarthritis, unspecified site; Z66 Do not resuscitate; Z68.32 Body mass index [BMI] 32.0-32.9, adult; Z86.711 Personal history of pulmonary embolism; Z87.891 Personal history of nicotine dependence
CPT/HCPCS: 36415; 71045; 71275; 80053; 83605; 84075; 85025; 85379; 85610; 85730; 87040; 87070; 87077; 87186; 87205; 87426; 87449; 93005; 94640; 94762; 97110; 97161; 97165; 97535; 99251; 99282; 99285; J7030; J7050; Q9967; A4216; G0463; J0248; J2405

== ENCOUNTER 2022-01-28 13:26 | Emergency (ER) | payer MEDICAID, SELFPAY ==
[2022-01-28 13:27] VITALS: BP 109/69; PULSE 81; RESP 19; TEMP 37; O2SAT 95; BMI 35.9
--- NOTE | 2022-01-28 13:51 | RAD_ITS ---
STUDY: X-RAY CHEST REASON FOR EXAM: Female, 57 years old. Chest pain TECHNIQUE: Single AP portable view of the chest. COMPARISON: 10/06/2021. FINDINGS: The lungs are clear and expanded. There is no demonstrated pleural abnormality. Normal size heart. Normal mediastinum and ashli. Normal visualized pulmonary arteries. Normal visualized aortic arch and descending thoracic aorta. Normal visualized thoracic spine. Normal visualized ribs, clavicles, and shoulders. There is no demonstrated abnormality of the visualized soft tissue structures of the upper abdomen. RAD/Chest 1 View (Portable) IMPRESSION: No active pulmonary disease. Electronically Signed: Quirino Iqbal MD at 15:01 EDT ,
--- NOTE | 2022-01-28 13:51 | EKG12_ITS ---
Test Reason : CP Blood Pressure : / mmHG Vent. Rate : 091 BPM Atrial Rate : 091 BPM P-R Int : 138 ms QRS Dur : 064 ms QT Int : 384 ms P-R-T Axes : 072 022 053 degrees QTc Int : 472 ms Normal sinus rhythm Normal ECG Confirmed by ANDREA PALMER, NICOLETTE ([id number]), supervising editor news reel KELLY KIMBALL ([id number]) on 01/31/2022 9:15:09 AM Referred By: KELSEY Confirmed By:NICOLETTE MENDEZ MD
--- NOTE | 2022-01-28 13:52 | EDS_ITS ---
HPI History of Present Illness Chief Complaint: Chest Pain Informant: patient Onset/Context/Timing Onset: Hours (4) Activity at onset: sudden and onset (When she sat up after waking up from sleeping overnight ) Timing: Continuous Quality: Positive for Aching Location: - (Sternal and around left chest to left upper back) Current Severity: Mild Maximum Severity: Moderate Worsened By: Movement of Torso; Not Worsened By Exertion, Breathing and Coughing Relieved By: Remaining Still Associated Symptoms: Positive for Nausea and Cough (Chronic unchanged); Negative for Vomiting, Diaphoresis, Dyspnea, Fever, Lightheadedness and Palpitations Narrative Narrative: Patient states she woke up early this morning, got up and took her medications and went back to bed because she was tired and she had no symptoms then. When she woke up later, this was about 4 hours ago prior to examination here, she sat up and all of a sudden had this discomfort. She has a history of an NSTEMI and a partial lesion in her left circumflex according to her, that she did not have PCI for, just managed medically, she has not tried any specific treatment for this, but she presents due to this discomfort been persistent for the past 4 hours. She states it is better now than it was before. Denies any shortness of breath or pleuritic component, she did get nauseated with it but did not vomit. When asked if this felt similar to the discomfort that she was having when she had her NSTEMI, she states she does not remember exactly what it felt like, but it did not feel like THIS. [facility] Medical History Acute diastolic (congestive) heart failure (04/18/18) Acute on chronic respiratory failure with hypoxia and hypercapnia Arthritis Asthma Asthma-COPD overlap syndrome Atherosclerosis of coronary artery of [place] heart without angina pectoris Bipolar disorder Bronchitis Chronic back pain Chronic neck and back pain COPD (chronic obstructive pulmonary disease) Depression Difficulty balancing Diverticula of colon Encounter for screening for COVID-19 GERD (gastroesophageal reflux disease) History of non-ST elevation myocardial infarction (NSTEMI) (04/16/18) History of sepsis Hypersomnia, unspecified Hypoglycemia Hypokalemia Hypothyroidism Limb weakness Myocardial infarct Obesity Paroxysmal supraventricular tachycardia Severe headache Stomach ulcer TMJ (temporomandibular joint syndrome) Urinary incontinence Home Medications lamotrigine 200 mg PO BID 04/15/18 [History Last Taken 01/28/22 0800] aspirin 81 mg PO DAILY tab.chew 04/21/18 [Rx Last Taken Unknown] diazepam 5 mg PO BID PRN PRN 06/22/18 [History Last Taken Unknown] fluoxetine 40 mg PO BID 06/22/18 [History Last Taken Unknown] hxuxhkgixk-futbumtnxpawl-grjfnfti 50 mg-325 mg-40 mg tablet 1 tab PO PRN PRN 30 Days #90 tab 03/04/19 [History Last Taken Unknown] promethazine 25 mg tablet 1 tab PO PRN PRN 30 Days #90 tab 03/04/19 [History Last Taken Unknown] ibuprofen 600 mg tablet 600 mg PO TID PRN #42 tab 09/28/20 [Rx Last Taken Unknown] cyclobenzaprine 10 mg tablet 20 mg PO Q6H PRN tab 02/03/21 [History Last Taken Unknown] furosemide 20 mg tablet 20 mg PO DAILY tab 02/03/21 [History Last Taken Unknown] pantoprazole 40 mg tablet,delayed release 40 mg PO BID tab 02/03/21 [History Last Taken Unknown] albuterol sulfate 2.5 mg INHALATION Q4HWA.RT #25 vial.neb. 05/03/21 [Rx Last Taken Unknown] albuterol sulfate 90 mcg/actuation aerosol inhaler 2 puff INHALATION Q4H PRN PRN #1 inhaler 05/03/21 [Rx Last Taken Unknown] ezetimibe 10 mg PO DAILY 10/06/21 [History Last Taken 10/05/21 09:00] budesonide-formoterol HFA 160 mcg-4.5 mcg/actuation aerosol inhaler 2 puff INHALATION BID #1 ea 11/07/21 [Rx Last Taken Unknown] fluticasone propionate 50 mcg/actuation nasal spray,suspension 2 spray INTRANASAL DAILY #16 g 01/23/22 [Rx Last Taken Unknown] atenolol 25 mg PO DAILY 01/28/22 [History Last Taken Unknown] levofloxacin 500 mg PO DAILY 01/28/22 [History Last Taken 01/28/22] levothyroxine 125 mcg PO DAILY 01/28/22 [History Last Taken Unknown] nystatin 5 ml MUCOUS MEMBRANE TID PRN 01/28/22 [History Last Taken Unknown] Allergy/AdvReac Type Severity Reaction Status Date / Time amoxicillin Allergy Severe Shortness Verified 10/06/21 08:54 of breath azithromycin Allergy Severe Shortness Verified 10/06/21 08:54 of breath clindamycin Allergy Severe Shortness Verified 10/06/21 08:54 of breath doxycycline Allergy Severe Shortness Verified 10/06/21 08:54 of breath erythromycin lactobionate Allergy Severe Shortness Verified 10/06/21 08:54 [From Erythrocin] of breath Penicillins Allergy Severe Shortness Verified 10/06/21 08:54 of breath Sulfa (Sulfonamide Allergy Severe Shortness Verified 10/06/21 08:54 Antibiotics) of breath sulfamethoxazole Allergy Severe Shortness Verified 10/06/21 08:54 [From Bactrim] of breath trimethoprim [From Bactrim] Allergy Severe Shortness Verified 10/06/21 08:54 of breath meloxicam [From Mobic] Allergy Chest Verified 10/06/21 08:54 tightness tramadol Allergy Unknown Verified 10/06/21 08:54 codeine AdvReac Nausea/Vom/ Verified 10/06/21 08:54 [From Tylenol-Codeine #3] Diarrhea terbutaline [From Brethine] AdvReac Other Verified 10/06/21 08:54 ANITHISTAMINES Allergy Unknown Uncoded 10/04/21 19:22 Family History Mother Hypertension Pulmonary embolism Psychiatric care Father Lung cancer Grandmother Breast cancer Sister Asthma Seizures Psychiatric care Depression Son Depression Psychiatric care ADHD Daughter Depression Psychiatric care Bipolar 1 disorder Surgical History History of appendectomy History of section History of cholecystectomy History of dilatation and curettage History of endometrial ablation History of left heart catheterization (04/18/18) History of left oophorectomy hx of throat biopsy Social History household members: children Smoking Status: Former smoker Tobacco: How many years used: 40 how long ago did patient quit smokin, 1.5ppd second hand exposure: Yes substance use type: does not use ROS ROS ED Constitutional Constitutional ED: Denies chills or fever(s) Eyes Eyes: Denies change in vision or diplopia ENT ENT ED: Denies rhinorrhea or sore throat Cardiovascular Cardiovascular: Reports chest pain; Denies palpitations Respiratory/Chest Respiratory/Chest: Reports cough; Denies dyspnea Gastrointestinal Gastrointestinal: Reports nausea; Denies abdominal pain, diarrhea or vomiting Genitourinary Genitourinary ED: Denies dysuria or hematuria Musculoskeletal Musculoskeletal: Reports as per HPI and back pain; Denies neck pain Integumentary Denies abscess or rash Neurologic Neurologic: Denies headache(s), paresthesias or weakness Psychiatric Psychiatric: Denies anxiety or suicidal thoughts EXAM Physical Exam Const Vital Signs: 01/28/22 13:27 01/28/22 13:32 01/28/22 14:08 Temperature 98.6 F Temperature Source Oral Pulse Rate 81 Respiratory Rate 19 H Respiratory Effort Normal Non-Labored Blood Pressure 109/69 Blood Pressure Mean 82 Pulse Ox 95 Oxygen Delivery Method Room Air Room Air 01/28/22 14:50 01/28/22 15:08 01/28/22 16:00 Temperature 97.9 F Temperature Source Oral Pulse Rate 78 74 79 Respiratory Rate 16 16 13 Respiratory Effort Blood Pressure 99/78 104/67 103/68 Blood Pressure Mean 85 79 79 Pulse Ox 95 96 95 Oxygen Delivery Method Room Air Room Air Room Air Positive well nourished and well developed General Appearance ED: well developed and NAD HEENT Reports moist mucous membranes normocephalic and atraumatic Eyes PERRL and EOMs intact bilaterally Neck full ROM and supple Chest Wall inspection of chest normal Chest Narrative: No rash. Tender to palpation left paraspinal musculature, although pain is somewhat dermatomal in its distribution, she does not have tenderness throughout the dermatome. Resp normal respiratory effort and clear to auscultation bilaterally Cardio regular rate, regular rhythm and no murmurs GI non-tender and non-distended Auscultation: normoactive bowel sounds Palpation: soft Back/Spine no CVA tenderness General Back: other FROM Extremity normal to inspection, no calf tenderness and no pedal edema General Extremety ED: Negative for edema, pulses abnormal or tenderness General Extremity: Negative for edema or pulses abnormal Neuro oriented x3, CN's II-XII intact bilaterally and no sensory deficits noted Sensorium / Orientation: awake and alert Motor Exam: strength 5/5 throughout Skin no rashes or lesions noted and no wounds Heart Score History: Slightly/Non-Suspicious ECG: Normal Age: >45 - <65 years Risk Factors: >/= 3 Risk Factors or History of CAD Troponin: </= Normal Limit Score: 3 MDM MDM MDM Narrative Medical decision making narrative: Patient was initially given a GI cocktail that did not help anything, making me suspect this is more chest wall discomfort. Her EKG and troponin are normal after 4 hours continuous discomfort so I do not think she needs any other emergent testing. No sign of a pneumothorax or effusion or other acute abnormality on my interpretation of the one-view portable chest x-ray we obtained. Patient will be given a small dose of Toradol and discharged home with close outpatient follow-up, we discussed reasons to return. We also discussed watching for shingles rash to appear in this area and if it does to return because that would change the treatment, given the distribution she describes of the discomfort. Lab Data Attestation: I reviewed the patient's lab results. Labs: Laboratory Results - last 24 hr 01/28/22 01/28/22 01/28/22 13:35 13:35 13:35 WBC 5.1 RBC 3.78 L Hgb 11.6 L Hct 35.3 L MCV 93.4 MCH 30.7 MCHC 32.9 RDW Std Deviation 46.5 H RDW Coeff of Lino 13.9 Plt Count 208 MPV 11.7 Immature Gran % (Auto) 1.000 H Neut % (Auto) 47.8 Lymph % (Auto) 42.0 H White % (Auto) 7.4 Eos % (Auto) 1.2 Baso % (Auto) 0.6 Absolute Neuts (auto) 2.5 Absolute Lymphs (auto) 2.15 Nucleated RBC % 0 Sodium 141 Potassium 4.2 Chloride 107 Carbon Dioxide 28.0 Anion Gap 6 BUN 16 Creatinine 0.83 Estim Creat Clear Calc 62.61 Est GFR (MDRD) Af Amer 92 Est GFR (MDRD) Non-Af 76 BUN/Creatinine Ratio 19.3 Glucose 109 H Calcium 9.0 Troponin I High Sens < 3 L Radiography Chest X-Ray - ED: 1 View, Read by ED Physician and No Acute Disease Diagnostic Testing: Clinical Impression(s) from Imaging Studies Chest X-Ray 01/28/22 13:51 IMPRESSION: No active pulmonary disease. Electronically Signed: Quirino Iqbal MD at 15:01 EDT , EKG Initial EKG: Attestation: I personally reviewed and interpreted this EKG as follows: Interpretation: Sinus Rhythm and No Acute Injury Pattern Comments: Normal EKG Discharge Plan Triage Chief Complaint: Chest Pain ED Provider: Elias Sol Dx/Rx/DC Orders Clinical Impression: Left-sided chest pain, History of coronary artery disease Instructions: ED Chest Pain, Uncertain Cause Prescriptions: No Action promethazine 25 mg tablet 1 tab PO PRN PRN (Reason: Nausea) 30 Days Qty: 90 RF: 0 xgnbhawfja-ufrsylesgbtgg-ucco 50-325-40 mg tablet 1 tab PO PRN PRN (Reason: Migraine Symptoms) 30 Days Qty: 90 RF: 0 cyclobenzaprine 10 mg tablet 20 mg PO Q6H PRN (Reason: MUSCLE SPASMS) RF: 0 furosemide 20 mg tablet 20 mg PO DAILY RF: 0 pantoprazole 40 mg tablet,delayed release (DR/EC) 40 mg PO BID RF: 0 lamotrigine 200 MG tablet,disintegrating 200 mg PO BID RF: 0 aspirin 81 MG tablet,chewable 81 mg PO DAILY RF: 0 fluoxetine 20 MG capsule 40 mg PO BID RF: 0 diazepam 5 MG tablet 5 mg PO BID PRN PRN (Reason: Anxiety) RF: 0 ezetimibe 10 mg tablet 10 mg PO DAILY RF: 0 levothyroxine 125 mcg tablet 125 mcg PO DAILY RF: 0 nystatin 100,000 unit/mL suspension 5 ml mucous membrane TID PRN (Reason: thrush) RF: 0 atenolol 25 mg tablet 25 mg PO DAILY RF: 0 levofloxacin 750 mg tablet 500 mg PO DAILY RF: 0 ibuprofen 600 mg tablet 600 mg PO TID PRN (Reason: pain) Qty: 42 RF: 0 albuterol sulfate 90 mcg/actuation HFA aerosol inhaler 2 puff inhalation Q4H PRN PRN (Reason: Wheezing) Qty: 1 RF: 6 albuterol sulfate 2.5 mg /3 mL (0.083 %) solution for nebulization 2.5 mg inhalation Q4HWA.RT Qty: 25 RF: 0 budesonide-formoterol [Symbicort] 160-4.5 mcg/actuation HFA aerosol inhaler 2 puff inhalation BID Qty: 1 RF: 3 fluticasone propionate 50 mcg/actuation spray,suspension 2 spray INTRANASAL DAILY Qty: 16 RF: 0 Primary Care Provider: Sofy Richter Referrals: Sofy Richter DO [Primary Care Provider] - 3-5 Days if not improving Disposition Disposition: Home, Self Care
[2022-01-28] MEDS: Mag Hydrox/Al Hydrox/Simeth 30 ML UDC PO (14:08)
[2022-01-28 14:14] LABS: Absolute Lymphocyte Count 2.15 X10^3/uL (0.83-4.51); Absolute Neutrophil Count 2.5 X10^3/uL (2.0-7.7); Basophil# 0.03 X10^3/uL; Basophil% 0.6 % (0-1); Eosinophil# 0.06 X10^3/uL; Eosinophils% 1.2 % (0-5); Hematocrit 35.3 % (37-47); Hemoglobin 11.6 g/dL (12.0-15.0); Lymphocyte # 2.15 X10^3/ul (0.83-4.51); Mean Corp Hgb Conc 32.9 g/dL (32-36); Mean Corpuscular Hgb 30.7 pg (27.0-32.0); Mean Corpuscular Volume 93.4 fL (81-99); Mean Platelet Vol. 11.7 fl (6.2-12.0); Monocyte# 0.38 X10^3/uL; Monocyte% 7.4 % (0-10); NRBC Flagged by Analyzer 0 % (0-5); Neutrophil # 2.45 X10^3/uL (2.7-7.7); Neutrophil % 47.8 % (47-70); Platelet Count 208 K/mm3 (150-450); RBC Distribution Width CV 13.9 % (11.6-14.6); RBC Distribution Width SD 46.5 fl (35.1-43.9); Red Blood Count 3.78 M/mm3 (4.2-5.4); White Blood Count 5.1 K/mm3 (4.4-11.0)
[2022-01-28 14:22] LABS: Anion Gap 6 (5-15); BUN 16 mg/dL (7-18); BUN/Creat Ratio 19.3 RATIO (10-20); Chloride 107 mmol/L (98-107); Creatinine, Serum 0.83 mg/dL (0.55-1.02); EST Glomerular Filtration Rate 76 mL/min (>60); Est Glom Filt Rate - Afr Amer 92 mL/min (>60); Estimated Creatinine Clearance 62.61 ml/min; Glucose 109 mg/dL (74-106); Potassium 4.2 mmol/L (3.5-5.1); Sodium Level 141 mmol/L (136-145)
[2022-01-28 14:32] LABS: Troponin-I HS (w/2H Reflex) < 3 pg/mL (3.0-54.0)
[2022-01-28 14:50] VITALS: BP 99/78; PULSE 78; RESP 16; O2SAT 95
[2022-01-28 15:08] VITALS: BP 104/67; PULSE 74; RESP 16; O2SAT 96
[2022-01-28 16:00] VITALS: BP 103/68; PULSE 79; RESP 13; TEMP 36.6; O2SAT 95
[2022-01-28] MEDS: Ketorolac 15 MG/ML Vial IV (16:58)
[2022-01-28 17:09] VITALS: BP 104/68; PULSE 68; RESP 16; O2SAT 98
== END 2022-01-28 17:10 | disposition home or self-care (01) ==
PROVIDERS: Emergency Provider Emergency Medicine; PCP Family Medicine; Visit Provider Emergency Medicine
DX: R07.89 Other chest pain (principal); J44.9 Chronic obstructive pulmonary disease, unspecified; I25.10 Atherosclerotic heart disease of native coronary artery without angina pectoris; R11.0 Nausea; Z87.891 Personal history of nicotine dependence; I25.2 Old myocardial infarction; M19.90 Unspecified osteoarthritis, unspecified site; K21.9 Gastro-esophageal reflux disease without esophagitis; Z79.899 Other long term (current) drug therapy; E03.9 Hypothyroidism, unspecified; Z79.82 Long term (current) use of aspirin; Z79.890 Hormone replacement therapy; F32.A Depression, unspecified; F41.9 Anxiety disorder, unspecified; E66.9 Obesity, unspecified; Z68.35 Body mass index [BMI] 35.0-35.9, adult
CPT/HCPCS: 71045; 80048; 84484; 85025; 93005; 96374; 99285; A4216

== ENCOUNTER → 2022-06-02 | Outpatient (CLI) | payer MEDICAID, SELFPAY ==
[2022-06-02 15:13] LABS: Erythrocyte Sedimentation Rate 20 mm/hr (0-30)
[2022-06-02 15:29] LABS: Free T3 3.4 pg/mL (2.18-3.98); T4 Free Direct 0.87 ng/dL (0.76-1.46); Thyroid Stim Hormone (TSH) 0.16 uIU/mL (0.358-3.74)
== END | disposition home or self-care (01) ==
PROVIDERS: PCP Family Medicine; Referring Provider Family Medicine; Visit Provider Family Medicine
DX: E03.9 Hypothyroidism, unspecified (principal); M25.50 Pain in unspecified joint
CPT/HCPCS: 36415; 84439; 84443; 84481; 85652; 86140

== ENCOUNTER → 2022-07-24 | Outpatient (CLI) | payer MEDICAID, SELFPAY ==
[2022-07-24 12:17] LABS: Absolute Lymphocyte Count 2.29 X10^3/uL (0.83-4.51); Absolute Neutrophil Count 1.7 X10^3/uL (2.0-7.7); Basophil# 0.03 X10^3/uL; Basophil% 0.7 % (0-1); Eosinophil# 0.03 X10^3/uL; Eosinophils% 0.7 % (0-5); Hematocrit 36.6 % (37-47); Hemoglobin 11.9 g/dL (12.0-15.0); Lymphocyte # 2.29 X10^3/ul (0.83-4.51); Lymphocyte % 51.5 % (19-41); Mean Corp Hgb Conc 32.5 g/dL (32-36); Mean Corpuscular Hgb 30.5 pg (27.0-32.0); Mean Corpuscular Volume 93.8 fL (81-99); Monocyte# 0.39 X10^3/uL; Monocyte% 8.8 % (0-10); NRBC Flagged by Analyzer 0 % (0-5); Neutrophil # 1.68 X10^3/uL (2.7-7.7); Neutrophil % 37.6 % (47-70); Platelet Count 205 K/mm3 (150-450); RBC Distribution Width CV 12.9 % (11.6-14.6); White Blood Count 4.5 K/mm3 (4.4-11.0)
[2022-07-24 13:42] LABS: ALB/GLOB Ratio 0.9 RATIO (0.9-2.4); AST(SGOT) 48 U/L (15-37); Alanine Aminotransfer ALT/SGPT 38 U/L (13-56); Albumin, Serum 3.4 g/dL (3.2-5.0); Alkaline Phosphatase 141 U/L (45-117); Anion Gap 7 (5-15); BUN 11 mg/dL (7-18); BUN/Creat Ratio 15.4 RATIO (10-20); Calcium,Total 8.5 mg/dL (8.5-10.1); Chloride 104 mmol/L (98-107); Cholesterol 246 mg/dL (200); Creatinine, Serum 0.71 mg/dL (0.55-1.02); EST Glomerular Filtration Rate 90 mL/min (>60); Est Glom Filt Rate - Afr Amer 109 mL/min (>60); Globulin 3.9 g/dL (2.2-4.2); Glucose 103 mg/dL (74-106); High Density Lipoprotein 51 mg/dL; Potassium 3.8 mmol/L (3.5-5.1); Protein, Total 7.3 g/dL (6.4-8.2); Sodium Level 143 mmol/L (136-145); Triglycerides 189 mg/dL; Very Low Density Lipoprotein 38 mg/dL (5-40)
== END | disposition home or self-care (01) ==
LOC: BFHLAB 10:32
PROVIDERS: PCP Family Medicine; Referring Provider Family Medicine; Visit Provider Family Medicine
DX: E74.39 Other disorders of intestinal carbohydrate absorption (principal); E78.5 Hyperlipidemia, unspecified; E87.6 Hypokalemia; Z51.81 Encounter for therapeutic drug level monitoring
CPT/HCPCS: 36415; 80053; 80061; 83036; 85025

== ENCOUNTER → 2022-09-01 | Outpatient (CLI) | payer MEDICAID, SELFPAY ==
--- NOTE | 2022-09-01 14:35 | RAD_ITS ---
STUDY: X-RAY - LEFT FOOT CLINICAL: Female, 57 years old. left foot inj fall onto foot, pain is mainly lateral along 5th metatarsal TECHNIQUE: 3 view(s) of the foot. COMPARISON: X-ray of the left foot dated April 24, 2017 FINDINGS: Normal talus, calcaneus, and tarsal bones. Normal visualized subtalar, talonavicular, calcaneocuboid, tarsal and tarsometatarsal articulations. Normal metatarsi. Normal metatarsophalangeal joint of the great toe. Normal tibial and fibular sesamoid bones. Normal interphalangeal joint of the great toe. Normal phalanges of the great toe. Normal second through fifth metatarsophalangeal joints. Normal interphalangeal joints and phalanges of the lesser toes. The soft tissue structures are unremarkable. There is no demonstrated fracture. RAD/Foot min 3 Views IMPRESSION: Normal x-ray examination of the foot. Electronically Signed: James Lopez MD at 15:18 EST ,
== END | disposition home or self-care (01) ==
LOC: MTRAD 14:32
PROVIDERS: PCP Family Medicine; Referring Provider Physician Assistant Surgical; Visit Provider Physician Assistant Surgical
DX: S99.922A Unspecified injury of left foot, initial encounter (principal)
CPT/HCPCS: 73630

== ENCOUNTER 2022-11-12 15:39 | Emergency (ER) | payer MEDICAID, SELFPAY ==
[2022-11-12 15:39] VITALS: BP 96/75; PULSE 84; RESP 19; TEMP 36.6; O2SAT 96; BMI 34.5
[2022-11-12] MEDS: Ipratropium/Albuterol Sulfate 3 ML AMPUL.NEB INHALATION (16:22)
[2022-11-12 16:25] VITALS: PULSE 78; RESP 16; O2SAT 91
--- NOTE | 2022-11-12 16:32 | RAD_ITS ---
EXAM: XR CHEST, 2 VIEWS CLINICAL INDICATION: cough, sob, copd TECHNIQUE: Frontal and lateral views of the chest. This report was created using [employer] report generation technology. COMPARISON: 01/28/2022. FINDINGS: LUNGS AND PLEURAL SPACES: Low lung volumes limit the exam. No consolidations. No pneumothorax. No effusion. HEART: Unremarkable. Cardiac silhouette not enlarged. MEDIASTINUM: Central airways and mediastinal contour are unremarkable. BONES/JOINTS: Unremarkable. SOFT TISSUES: Unremarkable. RAD/Chest PA and Lateral IMPRESSION: 1. Low lung volumes limit the exam. No consolidations. 2. No acute cardiopulmonary abnormality. Electronically Signed: Pete Jewell MD at 16:43 EST ,
[2022-11-12 16:40] VITALS: O2SAT 96
--- NOTE | 2022-11-12 16:52 | ED.VIS.DYS ---
HPI History of Present Illness Chief Complaint: Shortness of Breath Informant: patient Narrative Narrative: 57-year-old female with COPD, she wears 2 L of oxygen at nighttime only at home, has had 3 days or so of increased cough without sputum production and increased wheezing/shortness of breath. She has also developed some bilateral lower rib/lung pain. She denies any fevers or chills. She has never received vaccinations for COVID, she did have a flu shot this year, she has had several recent sick contacts with undiagnosed URI symptoms and family members. She denies any leg pain or swelling or orthopnea. She has had a sore throat with this. No headaches. She had some antibiotics at home that she decided to start on her own, Levaquin. She has not been on any prednisone for this. She has been using her albuterol inhaler more than usual for rescue purposes. [facility] Medical History Acute diastolic (congestive) heart failure (04/18/18) Acute on chronic respiratory failure with hypoxia and hypercapnia Arthritis Asthma Asthma-COPD overlap syndrome Atherosclerosis of coronary artery of [place] heart without angina pectoris Bipolar disorder Bronchitis Chronic back pain Chronic neck and back pain COPD (chronic obstructive pulmonary disease) Cough COVID-19 (09/2021) Depression Difficulty balancing Diverticula of colon Encounter for screening for COVID-19 GERD (gastroesophageal reflux disease) History of non-ST elevation myocardial infarction (NSTEMI) (04/16/18) History of sepsis Hypersomnia, unspecified Hypoglycemia Hypokalemia Hypothyroidism Limb weakness Myocardial infarct Obesity Paroxysmal supraventricular tachycardia Severe headache Sore throat Stomach ulcer TMJ (temporomandibular joint syndrome) Urinary incontinence Home Medications lamotrigine 200 mg disintegrating tablet 200 mg PO BID seizure 04/15/18 [History Last Taken 01/28/22 0800] aspirin 81 mg chewable tablet 81 mg PO DAILY 04/21/18 [Rx Last Taken Unknown] diazepam 5 mg tablet 5 mg PO BID PRN PRN Anxiety 06/22/18 [History Last Taken Unknown] vsczvifdzd-dvrmtbtuvcobd-gbkbdneq 50 mg-325 mg-40 mg tablet 1 tab PO PRN PRN Migraine Symptoms 30 days #90 tabs 03/04/19 [History Last Taken Unknown] promethazine 25 mg tablet 1 tab PO PRN PRN Nausea 30 days #90 tabs 03/04/19 [History Last Taken Unknown] ibuprofen 600 mg tablet 600 mg PO TID PRN pain #42 tabs 09/28/20 [Rx Last Taken Unknown] cyclobenzaprine 10 mg tablet 20 mg PO Q6H PRN MUSCLE SPASMS 02/03/21 [History Last Taken Unknown] pantoprazole 40 mg tablet,delayed release 40 mg PO BID 02/03/21 [History Last Taken Unknown] ezetimibe 10 mg tablet 10 mg PO DAILY cholesterol 10/06/21 [History Last Taken 10/05/21 09:00] levothyroxine 125 mcg tablet 125 mcg PO DAILY 01/28/22 [History Last Taken Unknown] nystatin 100,000 unit/mL oral suspension 5 ml mucous membrane TID PRN thrush 01/28/22 [History Last Taken Unknown] fluticasone propionate 50 mcg/actuation nasal spray,suspension 2 spray intranasal DAILY #16 grams 02/21/22 [Rx Last Taken Unknown] albuterol sulfate 2.5 mg/3 mL (0.083 %) solution for nebulization 2.5 mg (3 mL) inhalation Q4HWA.RT #180 mL 04/04/22 [Rx Last Taken Unknown] albuterol sulfate 90 mcg/actuation aerosol inhaler 2 puff inhalation Q4H PRN PRN Wheezing ##1 04/04/22 [Rx Last Taken Unknown] budesonide-formoterol HFA 160 mcg-4.5 mcg/actuation aerosol inhaler (Symbicort) 2 puff inhalation BID #3 ea 04/04/22 [Rx Last Taken Unknown] fluoxetine 20 mg capsule 40 mg PO BID 04/18/22 [History Last Taken Unknown] furosemide 20 mg tablet 20 mg PO DAILY PRN 04/18/22 [History Last Taken Unknown] metoprolol succinate 25 mg tablet,extended release 24 hr (Toprol XL) 25 mg PO DAILY #90 tabs 04/18/22 [Rx Last Taken Unknown] prednisone 20 mg tablet 40 mg PO DAILY #10 TABLETS 11/12/22 [Rx Last Taken Unknown] Allergy/AdvReac Type Severity Reaction Status Date / Time amoxicillin Allergy Severe Shortness Verified 11/12/22 15:42 of breath azithromycin Allergy Severe Shortness Verified 11/12/22 15:42 of breath clindamycin Allergy Severe Shortness Verified 11/12/22 15:42 of breath doxycycline Allergy Severe Shortness Verified 11/12/22 15:42 of breath erythromycin lactobionate Allergy Severe Shortness Verified 11/12/22 15:42 [From Erythrocin] of breath Penicillins Allergy Severe Shortness Verified 11/12/22 15:42 of breath Sulfa (Sulfonamide Allergy Severe Shortness Verified 11/12/22 15:42 Antibiotics) of breath sulfamethoxazole Allergy Severe Shortness Verified 11/12/22 15:42 [From Bactrim] of breath trimethoprim [From Bactrim] Allergy Severe Shortness Verified 11/12/22 15:42 of breath meloxicam [From Mobic] Allergy Chest Verified 11/12/22 15:42 tightness tramadol Allergy Unknown Verified 11/12/22 15:42 codeine AdvReac Nausea/Vom/ Verified 11/12/22 15:42 [From Tylenol-Codeine #3] Diarrhea terbutaline [From Brethine] AdvReac Other Verified 11/12/22 15:42 ANITHISTAMINES Allergy Unknown Uncoded 11/12/22 15:42 Family History Mother Hypertension Pulmonary embolism Psychiatric care Father Lung cancer Grandmother Breast cancer Sister Asthma Seizures Psychiatric care Depression Son Depression Psychiatric care ADHD Daughter Depression Psychiatric care Bipolar 1 disorder Surgical History History of appendectomy History of section History of cholecystectomy History of dilatation and curettage History of endometrial ablation History of left heart catheterization (04/18/18) History of left oophorectomy hx of throat biopsy Social History household members: children Smoking Status: Former smoker Tobacco: How many years used: 40 how long ago did patient quit smokin, 1.5ppd second hand exposure: Yes substance use type: does not use ROS ROS ED Constitutional Constitutional ED: Denies chills or fever(s) Eyes Eyes: Denies change in vision or diplopia ENT ENT ED: Reports sore throat; Denies ear pain or rhinorrhea Cardiovascular Cardiovascular: Reports chest pain; Denies leg edema or palpitations Respiratory/Chest Respiratory/Chest: Reports cough, dyspnea and dyspnea on exertion; Denies sputum Gastrointestinal Gastrointestinal: Denies abdominal pain, diarrhea, nausea or vomiting Genitourinary Genitourinary ED: Denies dysuria or hematuria Musculoskeletal Musculoskeletal: Denies back pain or neck pain Integumentary Denies abscess or rash Neurologic Neurologic: Denies headache(s), paresthesias or weakness Psychiatric Psychiatric: Denies anxiety or suicidal thoughts EXAM Physical Exam Const Vital Signs: 11/12/22 15:39 11/12/22 15:55 11/12/22 16:25 Temperature 98 F Temperature Source Temporal Pulse Rate 84 Respiratory Rate 19 H Respiratory Effort Short of Breath Respiratory Depth Shallow Respiratory Pattern Normal Blood Pressure 96/75 Blood Pressure Mean 82 Pulse Ox 96 91 Oxygen Delivery Method Room Air Room Air 11/12/22 16:25 11/12/22 16:40 Temperature Temperature Source Pulse Rate 78 Respiratory Rate 16 Respiratory Effort Respiratory Depth Respiratory Pattern Blood Pressure Blood Pressure Mean Pulse Ox 96 Oxygen Delivery Method Room Air Positive well nourished and well developed General Appearance ED: well developed and NAD HEENT Reports moist mucous membranes normocephalic and atraumatic Eyes PERRL and EOMs intact bilaterally Neck full ROM, no lymphadenopathy, supple, no meningeal signs and no JVD Resp normal respiratory effort, no retractions and clear to auscultation bilaterally Resp Narrative: Diminished throughout symmetrically, trachea midline Effort and Inspection: able to speak in complete sentences Cardio regular rate, regular rhythm and no murmurs GI non-tender and non-distended Auscultation: normoactive bowel sounds Palpation: soft Back/Spine no CVA tenderness General Back: other FROM Extremity normal to inspection General Extremety ED: Negative for edema, pulses abnormal or tenderness General Extremity: Negative for edema or pulses abnormal Neuro oriented x3, CN's II-XII intact bilaterally and no sensory deficits noted Sensorium / Orientation: awake and alert Motor Exam: strength 5/5 throughout Skin no rashes or lesions noted and no wounds MDM MDM MDM Narrative Medical decision making narrative: Chest x-ray 2 views of my interpretation negative for pneumonia/consolidation. Radiology in agreement. Patient was given a duo nebulizer at her request, she did have some improvement with that. Her pain is reproducible to palpation of her ribs bilaterally. I do not think this is anything cardiac, she does not have pneumonia, I am fine with antibiotics but I did confirm with her that these are more to prevent bacterial superinfection and may not cure her current cough and she does understand that. I think it was reasonable to place her on a course of prednisone, does not sound like she is wheezing severely, just a little more than usual and so instead of an extended taper I will just place her on a 5-day burst. Radiography Diagnostic Testing: Clinical Impression(s) from Imaging Studies Chest X-Ray 11/12/22 16:32 IMPRESSION: 1. Low lung volumes limit the exam. No consolidations. 2. No acute cardiopulmonary abnormality. Electronically Signed: Pete Jewell MD at 16:43 EST , Discharge Plan Triage Chief Complaint: Shortness of Breath ED Provider: Elias Sol Dx/Rx/DC Orders Clinical Impression: Acute exacerbation of chronic obstructive pulmonary disease (COPD) Instructions: ED COPD Flare Prescriptions: New prednisone 20 mg tablet 40 mg PO DAILY Qty: 10 0RF No Action promethazine 25 mg tablet 1 tab PO PRN PRN (Reason: Nausea) 30 Days Qty: 90 ggihluyaqi-kkwwtjqdaeabd-dkav 50-325-40 mg tablet 1 tab PO PRN PRN (Reason: Migraine Symptoms) 30 Days Qty: 90 cyclobenzaprine 10 mg tablet 20 mg PO Q6H PRN (Reason: MUSCLE SPASMS) pantoprazole 40 mg tablet,delayed release (DR/EC) 40 mg PO BID furosemide 20 mg tablet 20 mg PO DAILY PRN albuterol sulfate 90 mcg/actuation HFA aerosol inhaler 2 puff inhalation Q4H PRN PRN (Reason: Wheezing) Qty: 1 11RF albuterol sulfate 2.5 mg /3 mL (0.083 %) solution for nebulization 2.5 mg inhalation Q4HWA.RT Qty: 180 6RF budesonide-formoterol [Symbicort] 160-4.5 mcg/actuation HFA aerosol inhaler 2 puff inhalation BID Qty: 3 3RF Rx Instructions: administer with spacer, rinse mouth after each use metoprolol succinate [Toprol XL] 25 mg tablet extended release 24 hr 25 mg PO DAILY Qty: 90 3RF lamotrigine 200 MG tablet,disintegrating 200 mg PO BID aspirin 81 MG tablet,chewable 81 mg PO DAILY 0RF diazepam 5 MG tablet 5 mg PO BID PRN PRN (Reason: Anxiety) fluoxetine 20 mg capsule 40 mg PO BID ezetimibe 10 mg tablet 10 mg PO DAILY levothyroxine 125 mcg tablet 125 mcg PO DAILY Label Comments: TAKE 1 TABLET BY MOUTH EVERY DAY IN THE MORNING ON EMPTY STOMACH nystatin 100,000 unit/mL suspension 5 ml mucous membrane TID PRN (Reason: thrush) Rx Instructions: swish and swallow 5 cc three times per day for 10 days ibuprofen 600 mg tablet 600 mg PO TID PRN (Reason: pain) Qty: 42 0RF fluticasone propionate 50 mcg/actuation spray,suspension 2 spray INTRANASAL DAILY Qty: 16 6RF Primary Care Provider: Sofy Richter Referrals: Sofy Richter DO [Primary Care Provider] - 3-5 Days if not improving Disposition Disposition: Home, Self Care
[2022-11-12] MEDS: predniSONE 20 MG Tablet 40 MG PO (17:09)
== END 2022-11-12 17:12 | disposition home or self-care (01) ==
PROVIDERS: Emergency Provider Emergency Medicine; PCP Family Medicine; Visit Provider Emergency Medicine
DX: J44.1 Chronic obstructive pulmonary disease with (acute) exacerbation (principal); J02.9 Acute pharyngitis, unspecified; I25.10 Atherosclerotic heart disease of native coronary artery without angina pectoris; R07.81 Pleurodynia; R06.02 Shortness of breath; Z99.81 Dependence on supplemental oxygen; Z28.310 Unvaccinated for COVID-19; Z79.52 Long term (current) use of systemic steroids; Z87.891 Personal history of nicotine dependence
CPT/HCPCS: 71046; 87428; 94640; 99283; A4216

== ENCOUNTER 2022-11-26 16:50 | Emergency (ER) | payer MEDICAID, SELFPAY ==
[2022-11-26 16:50] VITALS: PULSE 102; RESP 16; TEMP 35.7; O2SAT 91; BMI 34.2
[2022-11-26 16:52] VITALS: BP 111/72
--- NOTE | 2022-11-26 18:45 | EDS_ITS ---
HPI HPI - URI History of Present Illness Chief Complaint: Cough Onset/Context/Timing Onset: Yesterday Context: Gradual Onset Timing: Continuous Quality: Aching Location: Generalized Worsened by: - (Nothing) Relieved by: - (Nothing) Associated Symptoms Associated Symptoms: Positive for Nasal Congestion, Headache, Nausea and Productive Cough; Negative for Sinus Pressure, Myalgias, Vomiting, Shortness of Breath, Chest Pain, Nonproductive cough or Hemoptysis Narrative Narrative: Patient presents with cough and congestion that has been getting worse since yesterday. Patient states she is coughing up some green sputum. Patient admits to some subjective chills but did not take her temperature. Patient admits to a sore throat and rhinorrhea. Patient admits to some generalized aching. Patient states this feels similar to prior episode when she had pneumonia. Patient admits to headache and nasal congestion. Patient admits to nausea but denies any vomiting. Patient admits to some general myalgias and headaches. Patient denies any chest pain or shortness of breath. Prior similar symptoms: Yes ROS ROS ED Constitutional Constitutional ED: Reports chills, fever(s) and subjective Eyes Eyes: Denies blurry vision or change in vision ENT ENT ED: Reports rhinorrhea and sore throat Cardiovascular Cardiovascular: Denies chest pain or palpitations Respiratory/Chest Respiratory/Chest: Denies cough or dyspnea Gastrointestinal Gastrointestinal: Reports nausea; Denies vomiting Genitourinary Genitourinary ED: Denies dysuria or hematuria Musculoskeletal Musculoskeletal: Reports back pain, myalgias and neck pain Integumentary Denies abscess or rash Neurologic Neurologic: Reports headache(s); Denies weakness Allergic/Immunologic Allergic/Immunologic ED: Denies mouth swelling or urticaria [facility] Medical History Acute diastolic (congestive) heart failure (04/18/18) Acute on chronic respiratory failure with hypoxia and hypercapnia Arthritis Asthma Asthma-COPD overlap syndrome Atherosclerosis of coronary artery of [place] heart without angina pectoris Bipolar disorder Bronchitis Chronic back pain Chronic neck and back pain COPD (chronic obstructive pulmonary disease) Cough COVID-19 (09/2021) Depression Difficulty balancing Diverticula of colon Encounter for screening for COVID-19 GERD (gastroesophageal reflux disease) History of non-ST elevation myocardial infarction (NSTEMI) (04/16/18) History of sepsis Hypersomnia, unspecified Hypoglycemia Hypokalemia Hypothyroidism Limb weakness Myocardial infarct Obesity Paroxysmal supraventricular tachycardia Severe headache Sore throat Stomach ulcer TMJ (temporomandibular joint syndrome) Urinary incontinence Home Medications lamotrigine 200 mg disintegrating tablet 200 mg PO BID seizure 04/15/18 [History Last Taken 01/28/22 0800] aspirin 81 mg chewable tablet 81 mg PO DAILY 04/21/18 [Rx Last Taken Unknown] diazepam 5 mg tablet 5 mg PO BID PRN PRN Anxiety 06/22/18 [History Last Taken Unknown] wiwdkjmsge-iivedrlyzluwb-lirkktiy 50 mg-325 mg-40 mg tablet 1 tab PO PRN PRN Migraine Symptoms 30 days #90 tabs 03/04/19 [History Last Taken Unknown] promethazine 25 mg tablet 1 tab PO PRN PRN Nausea 30 days #90 tabs 03/04/19 [History Last Taken Unknown] ibuprofen 600 mg tablet 600 mg PO TID PRN pain #42 tabs 09/28/20 [Rx Last Taken Unknown] cyclobenzaprine 10 mg tablet 20 mg PO Q6H PRN MUSCLE SPASMS 02/03/21 [History Last Taken Unknown] pantoprazole 40 mg tablet,delayed release 40 mg PO BID 02/03/21 [History Last Taken Unknown] ezetimibe 10 mg tablet 10 mg PO DAILY cholesterol 10/06/21 [History Last Taken 10/05/21 09:00] levothyroxine 125 mcg tablet 125 mcg PO DAILY 01/28/22 [History Last Taken Unknown] nystatin 100,000 unit/mL oral suspension 5 ml mucous membrane TID PRN thrush 01/28/22 [History Last Taken Unknown] fluticasone propionate 50 mcg/actuation nasal spray,suspension 2 spray intranasal DAILY #16 grams 02/21/22 [Rx Last Taken Unknown] albuterol sulfate 2.5 mg/3 mL (0.083 %) solution for nebulization 2.5 mg (3 mL) inhalation Q4HWA.RT #180 mL 04/04/22 [Rx Last Taken Unknown] albuterol sulfate 90 mcg/actuation aerosol inhaler 2 puff inhalation Q4H PRN PRN Wheezing ##1 04/04/22 [Rx Last Taken Unknown] budesonide-formoterol HFA 160 mcg-4.5 mcg/actuation aerosol inhaler (Symbicort) 2 puff inhalation BID #3 ea 04/04/22 [Rx Last Taken Unknown] fluoxetine 20 mg capsule 40 mg PO BID 04/18/22 [History Last Taken Unknown] furosemide 20 mg tablet 20 mg PO DAILY PRN 04/18/22 [History Last Taken Unknown] metoprolol succinate 25 mg tablet,extended release 24 hr (Toprol XL) 25 mg PO DAILY #90 tabs 04/18/22 [Rx Last Taken Unknown] prednisone 20 mg tablet 40 mg PO DAILY #10 TABLETS 11/12/22 [Rx Last Taken Unknown] Allergy/AdvReac Type Severity Reaction Status Date / Time amoxicillin Allergy Severe Shortness Verified 11/12/22 15:42 of breath azithromycin Allergy Severe Shortness Verified 11/12/22 15:42 of breath clindamycin Allergy Severe Shortness Verified 11/12/22 15:42 of breath doxycycline Allergy Severe Shortness Verified 11/12/22 15:42 of breath erythromycin lactobionate Allergy Severe Shortness Verified 11/12/22 15:42 [From Erythrocin] of breath Penicillins Allergy Severe Shortness Verified 11/12/22 15:42 of breath Sulfa (Sulfonamide Allergy Severe Shortness Verified 11/12/22 15:42 Antibiotics) of breath sulfamethoxazole Allergy Severe Shortness Verified 11/12/22 15:42 [From Bactrim] of breath trimethoprim [From Bactrim] Allergy Severe Shortness Verified 11/12/22 15:42 of breath meloxicam [From Mobic] Allergy Chest Verified 11/12/22 15:42 tightness tramadol Allergy Unknown Verified 11/12/22 15:42 codeine AdvReac Nausea/Vom/ Verified 11/12/22 15:42 [From Tylenol-Codeine #3] Diarrhea terbutaline [From Brethine] AdvReac Other Verified 11/12/22 15:42 ANITHISTAMINES Allergy Unknown Uncoded 11/12/22 15:42 Family History Mother Hypertension Pulmonary embolism Psychiatric care Father Lung cancer Grandmother Breast cancer Sister Asthma Seizures Psychiatric care Depression Son Depression Psychiatric care ADHD Daughter Depression Psychiatric care Bipolar 1 disorder Surgical History History of appendectomy History of section History of cholecystectomy History of dilatation and curettage History of endometrial ablation History of left heart catheterization (04/18/18) History of left oophorectomy hx of throat biopsy Social History household members: children Smoking Status: Former smoker Tobacco: How many years used: 40 how long ago did patient quit smokin, 1.5ppd second hand exposure: Yes substance use type: does not use EXAM Physical Exam Const Vital Signs: 11/26/22 16:50 11/26/22 16:52 11/26/22 19:34 Temperature 96.2 F L Temperature Source Temporal Pulse Rate 102 H Respiratory Rate 16 Respiratory Effort Normal Non-Labored Respiratory Depth Normal Respiratory Pattern Normal Blood Pressure 111/72 Blood Pressure Mean 85 Pulse Ox 91 Oxygen Delivery Method Room Air Room Air 11/26/22 19:16 Temperature Temperature Source Pulse Rate 80 Respiratory Rate 20 H Respiratory Effort Respiratory Depth Respiratory Pattern Normal Blood Pressure Blood Pressure Mean Pulse Ox Oxygen Delivery Method Positive well nourished and well developed General Appearance ED: well developed and NAD HEENT Reports moist mucous membranes Neck supple and no JVD Resp normal respiratory effort Auscultation: rhonchi throughout Cardio regular rate and regular rhythm GI normal to inspection, nondistended, normoactive bowel sounds and non-tender Palpation: soft Extremity normal to inspection General Extremety ED: Negative for edema or tenderness General Extremity: Negative for edema Neuro oriented x3, CN's II-XII intact bilaterally and no sensory deficits noted Sensorium / Orientation: alert Motor Exam: strength 5/5 throughout Psych mental status grossly normal Skin no rashes or lesions noted MDM MDM MDM Narrative Medical decision making narrative: Differential diagnosis includes pneumonia, viral infection, COVID, influenza, and pneumothorax. Chest x-ray will be obtained to assess for pneumonia. CBC will be obtained to assess for leukocytosis and anemia. Basic metabolic profile will be obtained to assess for electrolyte abnormality and renal function. COVID-19 antigen will be obtained to assess for COVID infection. Influenza A and influenza B antigens will be obtained to assess for influenza infection. Lab Data Attestation: I reviewed the patient's lab results. Lab results narrative: CBC was reviewed and was within normal limits. Basic metabolic profile was reviewed and was within normal limits. COVID-19 rapid antigen was reviewed and was negative. Influenza A and influenza B rapid antigens were reviewed and were negative. Labs: Laboratory Results - last 24 hr 11/26/22 11/26/22 19:25 19:25 WBC 7.8 RBC 4.05 L Hgb 12.1 Hct 36.8 L MCV 90.9 MCH 29.9 MCHC 32.9 RDW Std Deviation 41.9 RDW Coeff of Lino 12.7 Plt Count 204 MPV 11.2 Immature Gran % (Auto) 0.400 Neut % (Auto) 62.4 Lymph % (Auto) 30.4 Divide % (Auto) 5.5 Eos % (Auto) 1.0 Baso % (Auto) 0.3 Absolute Neuts (auto) 4.9 Absolute Lymphs (auto) 2.37 Nucleated RBC % 0 Sodium 143 Potassium 3.6 Chloride 106 Carbon Dioxide 29.0 Anion Gap 8 BUN 16 Creatinine 0.76 Estim Creat Clear Calc 68.37 Est GFR (MDRD) Af Amer 101 Est GFR (MDRD) Non-Af 83 BUN/Creatinine Ratio 21.1 H Glucose 103 Calcium 8.5 Radiography Diagnostic Testing: Clinical Impression(s) from Imaging Studies Chest X-Ray 11/26/22 19:40 IMPRESSION: Minimal bibasilar atelectasis. There is no focal consolidation. Electronically Signed: Deny Restrepo MD at 20:00 EST , PA and lateral chest x-ray was obtained. There are 2 views. On my independent interpretation, lung tohmas are clear. There is normal cardiac silhouette. Bony thorax is normal. There is no acute process noted. Radiologist also interpreted the x-ray and agrees. Treatment and Re-Evaluation Narrative: Patient was given a DuoNeb aerosol here. Patient is feeling better on reevaluation. Patient still admits to some nausea however. Patient was given a dose of Zofran. Patient was advised of her findings. Patient was instructed to follow-up with her primary care physician in 5 to 7 days. Patient was instructed drink plenty of fluids. Patient was instructed to take Tylenol or ibuprofen as needed for any fevers or chills. Patient understood and was agreeable with the plan. All questions were answered. Discharge Plan Triage Chief Complaint: Cough ED Provider: Davon Turner Dx/Rx/DC Orders Clinical Impression: Viral upper respiratory tract infection with cough, Obesity Instructions: ED URI, Viral, No Abx (Adult) Prescriptions: No Action promethazine 25 mg tablet 1 tab PO PRN PRN (Reason: Nausea) 30 Days Qty: 90 okrjymtjot-tpguuclumcrmt-vcje 50-325-40 mg tablet 1 tab PO PRN PRN (Reason: Migraine Symptoms) 30 Days Qty: 90 cyclobenzaprine 10 mg tablet 20 mg PO Q6H PRN (Reason: MUSCLE SPASMS) pantoprazole 40 mg tablet,delayed release (DR/EC) 40 mg PO BID furosemide 20 mg tablet 20 mg PO DAILY PRN albuterol sulfate 90 mcg/actuation HFA aerosol inhaler 2 puff inhalation Q4H PRN PRN (Reason: Wheezing) Qty: 1 11RF albuterol sulfate 2.5 mg /3 mL (0.083 %) solution for nebulization 2.5 mg inhalation Q4HWA.RT Qty: 180 6RF budesonide-formoterol [Symbicort] 160-4.5 mcg/actuation HFA aerosol inhaler 2 puff inhalation BID Qty: 3 3RF Rx Instructions: administer with spacer, rinse mouth after each use metoprolol succinate [Toprol XL] 25 mg tablet extended release 24 hr 25 mg PO DAILY Qty: 90 3RF lamotrigine 200 MG tablet,disintegrating 200 mg PO BID aspirin 81 MG tablet,chewable 81 mg PO DAILY 0RF diazepam 5 MG tablet 5 mg PO BID PRN PRN (Reason: Anxiety) fluoxetine 20 mg capsule 40 mg PO BID ezetimibe 10 mg tablet 10 mg PO DAILY levothyroxine 125 mcg tablet 125 mcg PO DAILY Label Comments: TAKE 1 TABLET BY MOUTH EVERY DAY IN THE MORNING ON EMPTY STOMACH nystatin 100,000 unit/mL suspension 5 ml mucous membrane TID PRN (Reason: thrush) Rx Instructions: swish and swallow 5 cc three times per day for 10 days prednisone 20 mg tablet 40 mg PO DAILY Qty: 10 0RF ibuprofen 600 mg tablet 600 mg PO TID PRN (Reason: pain) Qty: 42 0RF fluticasone propionate 50 mcg/actuation spray,suspension 2 spray INTRANASAL DAILY Qty: 16 6RF Primary Care Provider: Sofy Richter Referrals: Sofy Richter DO [Primary Care Provider] - 3-5 Days Disposition Disposition: Home, Self Care
[2022-11-26 19:16] VITALS: PULSE 80; RESP 20
[2022-11-26] MEDS: Ipratropium/Albuterol Sulfate 3 ML AMPUL.NEB INHALATION (19:16)
--- NOTE | 2022-11-26 19:40 | RAD_ITS ---
EXAM: XR CHEST, 2 VIEWS CLINICAL INDICATION: Cough TECHNIQUE: Frontal and lateral views of the chest. This report was created using [employer] report generation technology. COMPARISON: 11/12/2022 FINDINGS: LUNGS AND PLEURAL SPACES: There are minimal linear opacities lung bases which may represent atelectasis. No pneumothorax. No effusion. HEART: Unremarkable. Cardiac silhouette not enlarged. MEDIASTINUM: Central airways and mediastinal contour are unremarkable. BONES/JOINTS: Unremarkable. SOFT TISSUES: Unremarkable. RAD/Chest PA and Lateral IMPRESSION: Minimal bibasilar atelectasis. There is no focal consolidation. Electronically Signed: Deny Restrepo MD at 20:00 EST ,
[2022-11-26 19:54] LABS: Absolute Lymphocyte Count 2.37 X10^3/uL (0.83-4.51); Absolute Neutrophil Count 4.9 X10^3/uL (2.0-7.7); Basophil# 0.02 X10^3/uL; Basophil% 0.3 % (0-1); Eosinophil# 0.08 X10^3/uL; Hematocrit 36.8 % (37-47); Hemoglobin 12.1 g/dL (12.0-15.0); Lymphocyte # 2.37 X10^3/ul (0.83-4.51); Lymphocyte % 30.4 % (19-41); Mean Corp Hgb Conc 32.9 g/dL (32-36); Mean Corpuscular Hgb 29.9 pg (27.0-32.0); Mean Corpuscular Volume 90.9 fL (81-99); Mean Platelet Vol. 11.2 fl (6.2-12.0); Monocyte# 0.43 X10^3/uL; Monocyte% 5.5 % (0-10); NRBC Flagged by Analyzer 0 % (0-5); Neutrophil # 4.87 X10^3/uL (2.7-7.7); Neutrophil % 62.4 % (47-70); Platelet Count 204 K/mm3 (150-450); RBC Distribution Width CV 12.7 % (11.6-14.6); RBC Distribution Width SD 41.9 fl (35.1-43.9); Red Blood Count 4.05 M/mm3 (4.2-5.4); White Blood Count 7.8 K/mm3 (4.4-11.0)
[2022-11-26 20:09] LABS: Anion Gap 8 (5-15); BUN 16 mg/dL (7-18); BUN/Creat Ratio 21.1 RATIO (10-20); Calcium,Total 8.5 mg/dL (8.5-10.1); Chloride 106 mmol/L (98-107); Creatinine, Serum 0.76 mg/dL (0.55-1.02); EST Glomerular Filtration Rate 83 mL/min (>60); Est Glom Filt Rate - Afr Amer 101 mL/min (>60); Estimated Creatinine Clearance 68.37 ml/min; Glucose 103 mg/dL (74-106); Potassium 3.6 mmol/L (3.5-5.1); Sodium Level 143 mmol/L (136-145)
[2022-11-26 20:50] VITALS: RESP 16
== END 2022-11-26 21:04 | disposition home or self-care (01) ==
PROVIDERS: Emergency Provider Emergency Medicine; PCP Family Medicine; Visit Provider Emergency Medicine
DX: J06.9 Acute upper respiratory infection, unspecified (principal); J44.9 Chronic obstructive pulmonary disease, unspecified; E66.9 Obesity, unspecified; I25.10 Atherosclerotic heart disease of native coronary artery without angina pectoris; R51.9 Headache, unspecified; R11.0 Nausea; R04.2 Hemoptysis; M54.9 Dorsalgia, unspecified; Z87.891 Personal history of nicotine dependence; Z20.822 Contact with and (suspected) exposure to COVID-19
CPT/HCPCS: 71046; 80048; 85025; 87428; 94640; 99283; A4216

== ENCOUNTER → 2022-12-14 | Outpatient (CLI) | payer MEDICAID, SELFPAY ==
[2022-12-14 16:44] LABS: Erythrocyte Sedimentation Rate 22 mm/hr (0-30)
[2022-12-14 16:45] LABS: Absolute Lymphocyte Count 2.32 X10^3/uL (0.83-4.51); Absolute Neutrophil Count 2.2 X10^3/uL (2.0-7.7); Basophil# 0.03 X10^3/uL; Basophil% 0.6 % (0-1); Eosinophil# 0.09 X10^3/uL; Eosinophils% 1.8 % (0-5); Hematocrit 35.1 % (37-47); Hemoglobin 11.6 g/dL (12.0-15.0); Lymphocyte # 2.32 X10^3/ul (0.83-4.51); Lymphocyte % 45.9 % (19-41); Mean Corpuscular Hgb 30.2 pg (27.0-32.0); Mean Corpuscular Volume 91.4 fL (81-99); Mean Platelet Vol. 11.2 fl (6.2-12.0); Monocyte# 0.39 X10^3/uL; Monocyte% 7.7 % (0-10); NRBC Flagged by Analyzer 0 % (0-5); Neutrophil # 2.21 X10^3/uL (2.7-7.7); Neutrophil % 43.8 % (47-70); Platelet Count 258 K/mm3 (150-450); RBC Distribution Width CV 13.2 % (11.6-14.6); RBC Distribution Width SD 43.1 fl (35.1-43.9); Red Blood Count 3.84 M/mm3 (4.2-5.4); White Blood Count 5.1 K/mm3 (4.4-11.0)
[2022-12-14 17:28] LABS: ALB/GLOB Ratio 1.2 RATIO (0.9-2.4); AST(SGOT) 35 U/L (15-37); Alanine Aminotransfer ALT/SGPT 23 U/L (13-56); Albumin, Serum 4.1 g/dL (3.2-5.0); Alkaline Phosphatase 128 U/L (45-117); Anion Gap 8 (5-15); BUN 17 mg/dL (7-18); Calcium,Total 8.8 mg/dL (8.5-10.1); Chloride 104 mmol/L (98-107); Creatinine, Serum 0.74 mg/dL (0.55-1.02); EST Glomerular Filtration Rate 86 mL/min (>60); Est Glom Filt Rate - Afr Amer 104 mL/min (>60); Globulin 3.4 g/dL (2.2-4.2); Glucose 100 mg/dL (74-106); LDH 257 U/L (84-246); Protein, Total 7.5 g/dL (6.4-8.2); Sodium Level 141 mmol/L (136-145)
[2022-12-16 16:09] LABS: Anti-Centromere B Ab <0.2 AI (0.0-0.9); Anti-Chromatin <0.2 AI (0.0-0.9); Anti-Jo <0.2 AI (0.0-0.9); Anti-Scleroderma-70 AB <0.2 AI (0.0-0.9); RNP Ab <0.2 AI (0.0-0.9); SJOGREN'S Anti-SS-A test < 0.2 AI (0.0-0.9); SJOGREN'S Anti-SS-B test < 0.2 AI (0.0-0.9); Smith Ab <0.2 AI (0.0-0.9)
[2022-12-16 18:29] LABS: Anti-dsDNA Ab 1 IU/mL (0-9)
[2022-12-18 15:08] LABS: Endomysial Antibody IgA Negative (Negative)
[2022-12-18 22:26] LABS: Immunoglobulin A 135 mg/dL (87-352); t-Transglutaminase IgA <2 U/mL (0-3)
[2022-12-19 00:07] LABS: Alpha-1-Globulins 0.3 g/dL (0.0-0.4); Alpha-2-Globulins 0.8 g/dL (0.4-1.0); Cytoplasmic Ab (C-ANCA) <1:20 titer (Neg:<1:20); Gamma Globulin 0.9 g/dL (0.4-1.8); HEPATITIS B SURFACE AG Negative (Negative); Hep C Antibodies Non Reactive (Non Reactive); Hepatitis A IgM Antibody Negative (Negative); Hepatitis B Core AB IgM Negative (Negative); Immunoglobulin A 135 mg/dL (87-352); Immunoglobulin G 921 mg/dL (586-1602); Immunoglobulin M 38 mg/dL (26-217); PROEL- TOTAL PROTEIN 7.2 g/dL (6.0-8.5)
[2022-12-19 10:10] LABS: Immunoglobulin E 15 IU/mL (6-495); Perinuclear Ab (P-ANCA) <1:20 titer (Neg:<1:20)
== END | disposition home or self-care (01) ==
PROVIDERS: PCP Family Medicine; Visit Provider Internal Medicine Gastroenterology
DX: R19.7 Diarrhea, unspecified (principal)
CPT/HCPCS: 36415; 80053; 80074; 82784; 82785; 83516; 83615; 84165; 85025; 85652; 86140; 86225; 86235; 86255; 86256; 86334

== ENCOUNTER → 2023-03-08 | Outpatient (CLI) | payer MEDICAID, SELFPAY | END | disposition home or self-care (01) | PROVIDERS: PCP Family Medicine; Visit Provider Family Medicine | DX: N39.0 Urinary tract infection, site not specified (principal) | CPT/HCPCS: 87086; 87088; 87186 ==

== ENCOUNTER → 2023-04-05 | Outpatient (CLI) | payer MEDICAID, SELFPAY ==
--- NOTE | 2023-04-05 17:03 | RAD_ITS ---
INDICATION: Post fall EXAMINATION/TECHNIQUE: X-RAY - LEFT XR Femur Min 2 Views 4 VIEWS COMPARISON: None FINDINGS: SOFT TISSUES: No soft tissue swelling or gas. No radiopaque foreign body. BONES/JOINTS: No acute fracture or subluxation. Normal alignment. Proximal and distal joint spaces are maintained. No sclerotic or destructive changes observed. RAD/Femur Min 2 Views IMPRESSION: Negative. Electronically Signed: Gerson Whitaker MD at 17:19 EDT ,
[2023-04-05 17:13] LABS: Absolute Lymphocyte Count 2.63 X10^3/uL (0.83-4.51); Absolute Neutrophil Count 2.6 X10^3/uL (2.0-7.7); Basophil# 0.05 X10^3/uL; Basophil% 0.9 % (0-1); Eosinophil# 0.07 X10^3/uL; Eosinophils% 1.2 % (0-5); Hematocrit 37.7 % (37-47); Hemoglobin 12.1 g/dL (12.0-15.0); Lymphocyte # 2.63 X10^3/ul (0.83-4.51); Lymphocyte % 44.9 % (19-41); Mean Corp Hgb Conc 32.1 g/dL (32-36); Mean Corpuscular Volume 93.3 fL (81-99); Mean Platelet Vol. 10.8 fl (6.2-12.0); Monocyte% 8.5 % (0-10); NRBC Flagged by Analyzer 0 % (0-5); Neutrophil # 2.58 X10^3/uL (2.7-7.7); Platelet Count 244 K/mm3 (150-450); RBC Distribution Width CV 12.8 % (11.6-14.6); RBC Distribution Width SD 43.9 fl (35.1-43.9); Red Blood Count 4.04 M/mm3 (4.2-5.4); White Blood Count 5.9 K/mm3 (4.4-11.0)
[2023-04-05 17:27] LABS: Erythrocyte Sedimentation Rate 11 mm/hr (0-30)
[2023-04-05 18:20] LABS: ALB/GLOB Ratio 0.9 RATIO (0.9-2.4); AST(SGOT) 29 U/L (15-37); Alanine Aminotransfer ALT/SGPT 29 U/L (13-56); Albumin, Serum 3.6 g/dL (3.2-5.0); Alkaline Phosphatase 130 U/L (45-117); Anion Gap 4 (5-15); BUN 13 mg/dL (7-18); BUN/Creat Ratio 15.8 RATIO (10-20); CRP 8.15 mg/L (0.0-3.0); Calcium,Total 8.7 mg/dL (8.5-10.1); Chloride 105 mmol/L (98-107); Creatinine, Serum 0.82 mg/dL (0.55-1.02); EST Glomerular Filtration Rate 76 mL/min (>60); Est Glom Filt Rate - Afr Amer 92 mL/min (>60); Globulin 3.9 g/dL (2.2-4.2); Glucose 100 mg/dL (74-106); Potassium 3.9 mmol/L (3.5-5.1); Protein, Total 7.5 g/dL (6.4-8.2); Sodium Level 139 mmol/L (136-145)
== END | disposition home or self-care (01) ==
PROVIDERS: PCP Family Medicine; Referring Provider Internal Medicine Gastroenterology; Visit Provider Internal Medicine Gastroenterology
DX: S70.12XA Contusion of left thigh, initial encounter (principal); R19.7 Diarrhea, unspecified; X58.XXXA Exposure to other specified factors, initial encounter
CPT/HCPCS: 36415; 73552; 80053; 85025; 85652; 86140

== ENCOUNTER → 2023-05-03 | Outpatient (CLI) | payer MEDICAID, SELFPAY | END | disposition home or self-care (01) | LOC: LABSPEC 09:07 | PROVIDERS: PCP Family Medicine; Referring Provider Family Medicine; Visit Provider Family Medicine | DX: R30.0 Dysuria (principal) | CPT/HCPCS: 87086; 87088; 87186 ==

== ENCOUNTER 2023-06-08 15:08 | Emergency (ER) | payer MEDICAID, SELFPAY ==
[2023-06-08 15:10] VITALS: BP 117/73; PULSE 83; RESP 16; TEMP 35.4; O2SAT 99; BMI 34.1
[2023-06-08 15:11] VITALS: BP 117/73; PULSE 83; RESP 16; TEMP 35.4; O2SAT 99
--- NOTE | 2023-06-08 15:21 | CT_ITS ---
STUDY: CT ABDOMEN AND PELVIS WITH CONTRAST REASON FOR EXAM: Female, 58 years old. Abdominal pain, nausea, history of diverticulitis RADIATION DOSAGE (If Supplied By Facility): CTDIvol = ( 14.59 ) mGy, DLP = ( 1003.43 ) mGycm TECHNIQUE: Transaxial images were obtained from the dome of the diaphragm to the symphysis pubis without oral contrast. IV 100mL Isovue-300 was administered. Sagittal and coronal images were reconstructed. Individualized dose optimization techniques were used for this CT. COMPARISON: Limited comparison October 07, 2021 CT angiogram chest, September 17, 2019 CT scan abdomen and pelvis without contrast. FINDINGS: There is partial visualization of calcification of the coronary arteries. Also seen on prior study. There is a stable lymph node in the pericardial fat measuring 5 mm. The heart is within normal limits of size. There is a radiopaque density in the right hepatic lobe unchanged since prior study measuring 9 mm. There are surgical clips in the gallbladder fossa consistent with a prior cholecystectomy. Normal spleen. Normal pancreas. Normal bilateral adrenal glands. Normal right kidney. Normal left kidney. Normal visualized stomach. Normal small intestine. There is mild amount of stool within the colon. There is diverticulosis of the descending colon. Within the distal descending colon and proximal sigmoid there is a segment of inflammation characterized by wall thickening edema and a anterior right lateral focus of inflammation suggesting diverticulitis. There is no visualized extraluminal gas formation or abscess formation. The colon is decompressed and mildly thickened thereafter with a decompressed appearance of the distal sigmoid and rectum. There are surgical clips in the region of the appendix consistent with a prior appendectomy. Aorta is partially calcified. The Aorta is mildly narrowed at the level of the bifurcation similar to the prior study. There is partial calcification of the takeoff of the bilateral iliac arteries. Normal inferior vena cava. There is a nonspecific 1.3 cm lymph node right retrocardiac and stable since prior study. The bladder is partially decompressed. There is atrophy of the uterus. Normal abdominal wall. There is a broad disc bulge with moderate neural foramina narrowing mild to moderate central stenosis L4-L5. CT/Abdomen/Pelvis W IV Cont ONLY IMPRESSION: Acute diverticulitis over a 7.1 cm segment in the descending colon/sigmoid without evidence of distant abscess or extraluminal gas. Status post cholecystectomy. Status post appendectomy. Foreign body density stable in the right hepatic lobe. Degenerative change of the lumbar spine L4-L5. Persistent partially visualized coronary artery calcification. Electronically Signed: Kay Osborn MD at 16:34 EDT ,
[2023-06-08] MEDS: Morphine 4 MG/ML Syringe IV (15:41)
[2023-06-08] MEDS: 0.9% Normal Saline 1,000 ML 1000 ML IV (15:42)
[2023-06-08 15:58] LABS: Bacteria 0 SEEN /hpf (None Seen); Mucous, Urine 0 SEEN /hpf (<or=2+); Red Blood Cells-Urine 0 SEEN /hpf (0-5); Squamous Epithelial Cells - UA 0 SEEN /hpf (5-10)
[2023-06-08 16:00] LABS: Color, Urine Yellow (Yellow); Glucose, Dipstick Normal (Normal); Ketone-Dipstick Negative (Negative); Leukocyte Esterase-Dipstick 25 /ul (Negative); Nitrite-Dipstick Negative (Negative); Occult Blood-Urine Negative /ul (Negative); Protein-Dipstick 15 mg/dl (Negative); Urine Bilirubin Dipstick Negative (Negative); Urine Clarity Clear (Clear); Urine Urobilinogen Normal (Normal); Urine pH 6.5 (5.0 - 8.0)
[2023-06-08 16:01] LABS: Absolute Lymphocyte Count 2.88 X10^3/uL (0.83-4.51); Basophil# 0.04 X10^3/uL; Basophil% 0.5 % (0-1); Eosinophil# 0.06 X10^3/uL; Eosinophils% 0.7 % (0-5); Hematocrit 40.8 % (37-47); Hemoglobin 12.9 g/dL (12.0-15.0); Lymphocyte # 2.88 X10^3/ul (0.83-4.51); Lymphocyte % 33.8 % (19-41); Mean Corp Hgb Conc 31.6 g/dL (32-36); Mean Corpuscular Hgb 30.1 pg (27.0-32.0); Mean Corpuscular Volume 95.3 fL (81-99); Mean Platelet Vol. 11.8 fl (6.2-12.0); Monocyte# 0.51 X10^3/uL; NRBC Flagged by Analyzer 0 % (0-5); Neutrophil # 4.99 X10^3/uL (2.7-7.7); Neutrophil % 58.4 % (47-70); Platelet Count 235 K/mm3 (150-450); RBC Distribution Width CV 12.4 % (11.6-14.6); RBC Distribution Width SD 42.8 fl (35.1-43.9); Red Blood Count 4.28 M/mm3 (4.2-5.4); White Blood Count 8.5 K/mm3 (4.4-11.0)
[2023-06-08 16:10] LABS: White Blood Cells 0-5 SEEN /hpf (0-5)
[2023-06-08 16:18] LABS: Anion Gap 6 (5-15); BUN 9 mg/dL (7-18); BUN/Creat Ratio 9.7 RATIO (10-20); Calcium,Total 9.3 mg/dL (8.5-10.1); Chloride 102 mmol/L (98-107); Creatinine, Serum 0.92 mg/dL (0.55-1.02); EST Glomerular Filtration Rate 66 mL/min (>60); Est Glom Filt Rate - Afr Amer 80 mL/min (>60); Estimated Creatinine Clearance 55.81 ml/min; Glucose 94 mg/dL (74-106); Potassium 3.5 mmol/L (3.5-5.1); Sodium Level 139 mmol/L (136-145)
--- NOTE | 2023-06-08 16:42 | ED.VIS.GI ---
HPI HPI - GI History of Present Illness Chief Complaint: Abd Pain Detail of Chief Complaint: Lateral lower quadrant abdominal pain left greater than right Informant: patient Abdominal Pain/Flank Pain Context: Sudden Onset Timing: Continuous and Waxes and wanes Quality: Aching and Cramping Location: RLQ and LLQ Current Severity: Mild Worsened by: Car ride and Movement Relieved by: Nothing Nausea/Vomiting/Emesis GI Symptom: Positive for Nausea; Negative for Vomiting Diarrhea/Melena/Hematochezia GI Symptom: Negative for Diarrhea, Melena or Hematochezia Associated Symptoms Associated Symptoms: Negative for Dysuria, Frequency, Hematuria or Urgency Narrative Narrative: Patient is a 58 woman who was placed on metronidazole for diverticulitis. She states her physician called in the prescription. Patient significant allergies to amoxicillin, macrolide, clindamycin and doxycycline. She also has significant reaction to sulfa. Patient does not have allergies to quinolones. She states that she did fill the prescription and has taken the medication. She denies alcohol use. She denies using mouthwash cough syrup which contain alcohol since she was prescribed metronidazole. She denies fever or chills. She does report nausea. She denies vomiting. She has had problems moving her bowels. She denies black or maroon stool. She denies urologic symptoms. She denies pain referred to her back. There is no history of renal or ureteral calculi. Patient denies abdominal distention or bloating. Prior similar symptoms: Yes (Diverticulitis) [facility] Medical History Acute diastolic (congestive) heart failure (04/18/18) Acute on chronic respiratory failure with hypoxia and hypercapnia Arthritis Asthma Asthma-COPD overlap syndrome Atherosclerosis of coronary artery of [place] heart without angina pectoris Bipolar disorder Bronchitis Chronic back pain Chronic neck and back pain COPD (chronic obstructive pulmonary disease) Cough COVID-19 (09/2021) Depression Difficulty balancing Diverticula of colon Encounter for screening for COVID-19 GERD (gastroesophageal reflux disease) History of non-ST elevation myocardial infarction (NSTEMI) (04/16/18) History of sepsis Hypersomnia, unspecified Hypoglycemia Hypokalemia Hypothyroidism Limb weakness Myocardial infarct Obesity Paroxysmal supraventricular tachycardia Severe headache Sore throat Stomach ulcer TMJ (temporomandibular joint syndrome) Urinary incontinence Home Medications lamotrigine 200 mg disintegrating tablet 200 mg PO BID seizure 04/15/18 [History Last Taken 01/28/22 0800] aspirin 81 mg chewable tablet 81 mg PO DAILY 04/21/18 [Rx Last Taken Unknown] qmkxbdrdko-cznljyuvrvyru-pmwagxht 50 mg-325 mg-40 mg tablet 1 tab PO PRN PRN Migraine Symptoms 30 days #90 tabs 03/04/19 [History Last Taken Unknown] promethazine 25 mg tablet 1 tab PO PRN PRN Nausea 30 days #90 tabs 03/04/19 [History Last Taken Unknown] ibuprofen 600 mg tablet 600 mg PO TID PRN pain #42 tabs 09/28/20 [Rx Last Taken Unknown] cyclobenzaprine 10 mg tablet 20 mg PO Q6H PRN MUSCLE SPASMS 02/03/21 [History Last Taken Unknown] pantoprazole 40 mg tablet,delayed release 40 mg PO BID 02/03/21 [History Last Taken Unknown] ezetimibe 10 mg tablet 10 mg PO DAILY cholesterol 10/06/21 [History Last Taken 10/05/21 09:00] levothyroxine 125 mcg tablet 125 mcg PO DAILY 01/28/22 [History Last Taken Unknown] nystatin 100,000 unit/mL oral suspension 5 ml mucous membrane TID PRN thrush 01/28/22 [History Last Taken Unknown] fluticasone propionate 50 mcg/actuation nasal spray,suspension 2 spray intranasal DAILY #16 grams 02/21/22 [Rx Last Taken Unknown] albuterol sulfate 2.5 mg/3 mL (0.083 %) solution for nebulization 2.5 mg (3 mL) inhalation Q4HWA.RT #180 mL 04/04/22 [Rx Last Taken Unknown] budesonide-formoterol HFA 160 mcg-4.5 mcg/actuation aerosol inhaler (Symbicort) 2 puff inhalation BID #3 ea 04/04/22 [Rx Last Taken Unknown] fluoxetine 20 mg capsule 40 mg PO BID 04/18/22 [History Last Taken Unknown] furosemide 20 mg tablet 20 mg PO DAILY PRN 04/18/22 [History Last Taken Unknown] diazepam 5 mg tablet 5 mg PO TID Anxiety 01/29/23 [History Last Taken Unknown] guaifenesin 1,200 mg tablet, extended release 12 hr 1,200 mg PO Q12H #60 tabs 01/29/23 [Rx Last Taken Unknown] prednisone 10 mg tablet 10 mg PO QDAY #30 tabs 01/29/23 [Rx Last Taken Unknown] albuterol sulfate 90 mcg/actuation aerosol inhaler 2 puff inhalation Q4H PRN PRN Wheezing ##1 02/23/23 [Rx Last Taken Unknown] atenolol 25 mg tablet See Rx Instructions .Route .COMPLEX #90 TABLETS 02/23/23 [Rx Last Taken Unknown] ciprofloxacin HCl 500 mg tablet 500 mg PO BID #14 TABLETS 06/08/23 [Rx Last Taken Unknown] oxycodone-acetaminophen 5 mg-325 mg tablet 1 tab PO Q6H PRN PRN Pain 3 days #12 TABLETS 06/08/23 [Rx Last Taken Unknown] Allergy/AdvReac Type Severity Reaction Status Date / Time amoxicillin Allergy Severe Shortness Verified 06/08/23 15:08 of breath azithromycin Allergy Severe Shortness Verified 06/08/23 15:08 of breath clindamycin Allergy Severe Shortness Verified 06/08/23 15:08 of breath doxycycline Allergy Severe Shortness Verified 06/08/23 15:08 of breath erythromycin lactobionate Allergy Severe Shortness Verified 06/08/23 15:08 [From Erythrocin] of breath Penicillins Allergy Severe Shortness Verified 06/08/23 15:08 of breath Sulfa (Sulfonamide Allergy Severe Shortness Verified 06/08/23 15:08 Antibiotics) of breath sulfamethoxazole Allergy Severe Shortness Verified 06/08/23 15:08 [From Bactrim] of breath trimethoprim [From Bactrim] Allergy Severe Shortness Verified 06/08/23 15:08 of breath Antihistamines - Alkylamine Allergy NEEDS Verified 06/08/23 15:08 FOLLOW-UP Antihistamines - Ethanolamine Allergy NEEDS Verified 06/08/23 15:08 FOLLOW-UP Antihistamines - Allergy NEEDS Verified 06/08/23 15:08 Ethylenediamine FOLLOW-UP Antihistamines - Piperidine Allergy NEEDS Verified 06/08/23 15:08 FOLLOW-UP meloxicam [From Mobic] Allergy Chest Verified 06/08/23 15:08 tightness tramadol Allergy Unknown Verified 06/08/23 15:08 codeine AdvReac Nausea/Vom/ Verified 06/08/23 15:08 [From Tylenol-Codeine #3] Diarrhea gabapentin AdvReac Other Verified 06/08/23 15:09 terbutaline [From Brethine] AdvReac Other Verified 06/08/23 15:08 Family History Mother Hypertension Pulmonary embolism Psychiatric care Father Lung cancer Grandmother Breast cancer Sister Asthma Seizures Psychiatric care Depression Son Depression Psychiatric care ADHD Daughter Depression Psychiatric care Bipolar 1 disorder Surgical History History of appendectomy History of section History of cholecystectomy History of dilatation and curettage History of endometrial ablation History of left heart catheterization (04/18/18) History of left oophorectomy hx of throat biopsy Social History household members: children Smoking Status: Former smoker Tobacco: How many years used: 40 how long ago did patient quit smokin, 1.5ppd second hand exposure: Yes substance use type: does not use ROS ROS ED Constitutional Constitutional ED: Denies chills, fever(s), subjective, sweats or weight loss ENT ENT ED: Denies ear pain, rhinorrhea or sore throat Cardiovascular Cardiovascular: Denies chest pain or palpitations Respiratory/Chest Respiratory/Chest: Denies cough, dyspnea or dyspnea on exertion Gastrointestinal Gastrointestinal: Reports abdominal pain and nausea; Denies diarrhea, melena or vomiting Genitourinary Genitourinary ED: Denies dysuria, hematuria or urinary frequency Musculoskeletal Musculoskeletal: Denies arthralgias, back pain, myalgias or neck pain Integumentary Denies Abrasions or rash Neurologic Neurologic: Reports weakness; Denies headache(s) or paresthesias Psychiatric Psychiatric: Reports anxiety Endocrine Endocrinology: Denies polydipsia, polyphagia or polyuria Hematologic/Lymphatic Hematologic/Lymphatic: Denies easy bleeding or easy bruising Allergic/Immunologic Allergic/Immunologic ED: Denies mouth swelling, tongue swelling or urticaria EXAM Physical Exam Const Vital Signs: 06/08/23 15:10 06/08/23 15:11 Temperature 95.8 F L 95.8 F L Temperature Source Temporal Temporal Pulse Rate 83 83 Respiratory Rate 16 16 Blood Pressure 117/73 117/73 Blood Pressure Mean 87 87 Pulse Ox 99 99 Positive well nourished, well developed and unkempt Constitutional Narrative: Patient appears uncomfortable. She does not appear toxic. General Appearance ED: unkempt, well developed and pallor HEENT Reports TM's clear and dry mucous membranes normocephalic and atraumatic Tympanic Membrane ED: Yes TM's clear Mouth ED: Yes dry mucous membranes Mouth: dry mucous membranes Eyes PERRL and EOMs intact bilaterally General Eye ED: Negative for pale conjunctiva or scleral icterus Neck no lymphadenopathy, supple and no JVD Chest Wall Chest Narrative: Normal Resp normal respiratory effort and clear to auscultation bilaterally Cardio regular rate, regular rhythm, S1 normal heart sound, S2 normal heart sound and no murmurs GI non-distended and no masses; Negative for non-tender Auscultation: hypoactive bowel sounds Palpation: soft, tender LLQ and RLQ and guarding LLQ; Negative for rigid, hepatomegaly, splenomegaly, hernia, mass, pulsatile mass or rebound tenderness present Narrative: There is no inguinal lymphadenopathy or mass. Back/Spine no CVA tenderness Back/Spine Narrative: Inspection of back is normal. Extremity full ROM General Extremety ED: Negative for edema or tenderness General Extremity: Negative for edema Neuro CN's II-XII intact bilaterally and moves all extremities Sensorium / Orientation: alert Motor Exam: strength 5/5 throughout Psych thought process normal; Negative for mental status grossly normal Appearance: unkempt Mood & Affect: anxious; Negative for tearful Skin no wounds General Skin Exam: pallor; Negative for jaundice Rashes: no rashes MDM MDM MDM Narrative Medical decision making narrative: Differential diagnosis would be diverticulitis, appendicitis, colitis, abdominal pain of unknown etiology and UTI. Because patient has guarding and prior history of diverticulitis suspect this is most likely diverticulitis. CT was obtained and reveals a 7 cm section of the sigmoid colon to be acutely inflamed. History & Record Review Discussion w/independent historian: Patient and Family Additional record(s) reviewed:: Prior outpatient record, Prior ED visit and Prior labs Lab Data Attestation: I reviewed the patient's lab results. Lab results narrative: CBC and frontal are normal UA is unremarkable. Electrolyte panel is unremarkable. Labs: Laboratory Results - last 24 hr 06/08/23 06/08/23 15:45 15:53 WBC 8.5 RBC 4.28 Hgb 12.9 Hct 40.8 MCV 95.3 MCH 30.1 MCHC 31.6 L RDW Std Deviation 42.8 RDW Coeff of Lino 12.4 Plt Count 235 MPV 11.8 Immature Gran % (Auto) 0.600 Neut % (Auto) 58.4 Lymph % (Auto) 33.8 Kane % (Auto) 6.0 Eos % (Auto) 0.7 Baso % (Auto) 0.5 Absolute Neuts (auto) 5.0 Absolute Lymphs (auto) 2.88 Nucleated RBC % 0 Sodium 139 Potassium 3.5 Chloride 102 Carbon Dioxide 31.0 Anion Gap 6 BUN 9 Creatinine 0.92 Estim Creat Clear Calc 55.81 Est GFR (MDRD) Af Amer 80 Est GFR (MDRD) Non-Af 66 BUN/Creatinine Ratio 9.7 L Glucose 94 Calcium 9.3 Urine Color Yellow Urine Clarity Clear Urine pH 6.5 Ur Specific [place] 1.010 Urine Protein 15 H Urine Glucose (UA) Normal Urine Ketones Negative Urine Occult Blood Negative Urine Nitrite Negative Urine Bilirubin Negative Urine Urobilinogen Normal Ur Leukocyte Esterase 25 H Urine RBC 0 SEEN Urine WBC 0-5 SEEN Ur Squamous Epith Cells 0 SEEN Urine Bacteria 0 SEEN Urine Mucus 0 SEEN Radiography Diagnostic Testing: Clinical Impression(s) from Imaging Studies Abdomen/Pelvis CT 06/08/23 15:21 IMPRESSION: Acute diverticulitis over a 7.1 cm segment in the descending colon/sigmoid without evidence of distant abscess or extraluminal gas. Status post cholecystectomy. Status post appendectomy. Foreign body density stable in the right hepatic lobe. Degenerative change of the lumbar spine L4-L5. Persistent partially visualized coronary artery calcification. Electronically Signed: Kay Osborn MD at 16:34 EDT , Treatment and Re-Evaluation :: Because of patient's allergies she received a dose of ciprofloxacin here in the emergency department prior to discharge. She was instructed to continue taking the metronidazole. She also was prescribed pain medicine. Discharge Plan Triage Chief Complaint: Abd Pain ED Provider: Ventura Baez Dx/Rx/DC Orders Clinical Impression: Diverticulitis of sigmoid colon, Obesity Instructions: ED Diverticulitis Prescriptions: New ciprofloxacin HCl [ciprofloxacin HCl] 500 mg tablet 500 mg PO BID Qty: 14 0RF oxycodone-acetaminophen [oxycodone-acetaminophen] 5-325 mg tablet 1 tab PO Q6H PRN PRN (Reason: Pain) 3 Days Qty: 12 0RF No Action promethazine 25 mg tablet 1 tab PO PRN PRN (Reason: Nausea) 30 Days Qty: 90 eodzpbgaey-htnzhszdwggod-amrp 50-325-40 mg tablet 1 tab PO PRN PRN (Reason: Migraine Symptoms) 30 Days Qty: 90 cyclobenzaprine 10 mg tablet 20 mg PO Q6H PRN (Reason: MUSCLE SPASMS) pantoprazole 40 mg tablet,delayed release (DR/EC) 40 mg PO BID furosemide 20 mg tablet 20 mg PO DAILY PRN albuterol sulfate 2.5 mg /3 mL (0.083 %) solution for nebulization 2.5 mg inhalation Q4HWA.RT Qty: 180 6RF budesonide-formoterol [Symbicort] 160-4.5 mcg/actuation HFA aerosol inhaler 2 puff inhalation BID Qty: 3 3RF Rx Instructions: administer with spacer, rinse mouth after each use prednisone 10 mg tablet 10 mg PO QDAY Qty: 30 0RF Rx Instructions: take 4 tabs for three days, then 3 tabs for three days, then 2 tabs for three days, then 1 tab for 3 days guaifenesin 1,200 mg tablet extended release 12hr 1,200 mg PO Q12H Qty: 60 6RF lamotrigine 200 MG tablet,disintegrating 200 mg PO BID aspirin 81 MG tablet,chewable 81 mg PO DAILY 0RF fluoxetine 20 mg capsule 40 mg PO BID diazepam 5 mg tablet 5 mg PO TID ezetimibe 10 mg tablet 10 mg PO DAILY levothyroxine 125 mcg tablet 125 mcg PO DAILY Patient Comments: TAKE 1 TABLET BY MOUTH EVERY DAY IN THE MORNING ON EMPTY STOMACH nystatin 100,000 unit/mL suspension 5 ml mucous membrane TID PRN (Reason: thrush) Rx Instructions: swish and swallow 5 cc three times per day for 10 days ibuprofen 600 mg tablet 600 mg PO TID PRN (Reason: pain) Qty: 42 0RF fluticasone propionate 50 mcg/actuation spray,suspension 2 spray INTRANASAL DAILY Qty: 16 6RF atenolol 25 mg tablet See Rx Instructions .ROUTE .COMPLEX Qty: 90 4RF Dose Instruction: TAKE 1 TABLET BY MOUTH EVERY DAY Rx Instructions: TAKE 1 TABLET BY MOUTH EVERY DAY albuterol sulfate 90 mcg/actuation HFA aerosol inhaler 2 puff inhalation Q4H PRN PRN (Reason: Wheezing) Qty: 1 11RF Primary Care Provider: Sofy Richter Referrals: Sofy Richter DO [Primary Care Provider] - 3-5 Days Disposition Disposition: Home, Self Care
[2023-06-08] MEDS: Ciprofloxacin 500 MG Tablet PO (16:55)
[2023-06-08 16:57] VITALS: BP 134/78; PULSE 74; RESP 14; TEMP 36.9; O2SAT 99
== END 2023-06-08 16:58 | disposition home or self-care (01) ==
PROVIDERS: Emergency Provider Emergency Medicine; PCP Family Medicine; Visit Provider Emergency Medicine
DX: K57.32 Diverticulitis of large intestine without perforation or abscess without bleeding (principal); J44.9 Chronic obstructive pulmonary disease, unspecified; F31.9 Bipolar disorder, unspecified; I25.10 Atherosclerotic heart disease of native coronary artery without angina pectoris; M54.9 Dorsalgia, unspecified; E66.9 Obesity, unspecified; K21.9 Gastro-esophageal reflux disease without esophagitis; I25.2 Old myocardial infarction; Z79.82 Long term (current) use of aspirin; Z79.899 Other long term (current) drug therapy; Z88.0 Allergy status to penicillin; Z88.2 Allergy status to sulfonamides; Z87.891 Personal history of nicotine dependence
CPT/HCPCS: J2405; 74177; 80048; 81001; 85025; 96361; 96374; 99284; Q9967

== ENCOUNTER → 2023-06-15 | Outpatient (CLI) | payer MEDICAID, SELFPAY ==
--- NOTE | 2023-06-15 14:16 | RAD_ITS ---
EXAM: XR LUMBOSACRAL SPINE, 4 OR 5 VIEWS CLINICAL INDICATION: LEFT THIGH PAIN TECHNIQUE: Frontal, lateral and bilateral oblique views of the lumbar spine. COMPARISON: Lumbar spine 04/10/2016 FINDINGS: VERTEBRAE: Partial sacralization of the L5 vertebral segment. Preserved vertebral body height. No fracture. No spondylolisthesis. Preservation of the normal lumbar lordosis. No significant facet arthropathy. DISC SPACES: No acute findings. Disc spaces are maintained. VASCULATURE: Atherosclerotic calcifications of the abdominal aorta. GASTROINTESTINAL TRACT: Some scattered air-fluid levels without dilated bowel loops. RAD/L/S Spine Min 4 Views IMPRESSION: 1. No acute abnormalities involving the lumbar spine. 2. Some scattered air-fluid levels without dilated bowel loops. Findings may indicate an ileus. Electronically Signed: Justin Oh MD at 22:17 EDT ,
[2023-06-15 18:26] LABS: ALB/GLOB Ratio 0.9 RATIO (0.9-2.4); AST(SGOT) 26 U/L (15-37); Alanine Aminotransfer ALT/SGPT 24 U/L (13-56); Albumin, Serum 3.4 g/dL (3.2-5.0); Alkaline Phosphatase 110 U/L (45-117); Anion Gap 5 (5-15); BUN 10 mg/dL (7-18); BUN/Creat Ratio 11.2 RATIO (10-20); Calcium,Total 8.9 mg/dL (8.5-10.1); Chloride 106 mmol/L (98-107); EST Glomerular Filtration Rate 69 mL/min (>60); Est Glom Filt Rate - Afr Amer 83 mL/min (>60); Free T3 2.3 pg/mL (2.18-3.98); Globulin 3.7 g/dL (2.2-4.2); Glucose 91 mg/dL (74-106); Potassium 3.8 mmol/L (3.5-5.1); Protein, Total 7.1 g/dL (6.4-8.2); Sodium Level 142 mmol/L (136-145); T4 Free Direct 1.12 ng/dL (0.76-1.46); Thyroid Stim Hormone (TSH) 0.77 uIU/mL (0.358-3.74)
== END | disposition home or self-care (01) ==
LOC: MTLAB 14:14
PROVIDERS: PCP Family Medicine; Referring Provider Family Medicine; Visit Provider Family Medicine
DX: E03.9 Hypothyroidism, unspecified (principal); Z51.81 Encounter for therapeutic drug level monitoring; M54.17 Radiculopathy, lumbosacral region
CPT/HCPCS: 36415; 72110; 80053; 84439; 84443; 84481

== ENCOUNTER → 2023-06-29 | Outpatient (CLI) | payer MEDICAID, SELFPAY ==
--- NOTE | 2023-06-29 15:47 | CT_ITS ---
STUDY: CT ABDOMEN AND PELVIS WITH CONTRAST REASON FOR EXAM: Female, 58 years old. DIVERTICULITIS RADIATION DOSAGE (If Supplied By Facility): CTDIvol = ( 18.75 ) mGy, DLP = ( 1085.41 ) mGycm TECHNIQUE: Transaxial images were obtained from the dome of the diaphragm to the symphysis pubis with oral contrast. Isovue-300 was administered. Sagittal and coronal images were reconstructed. Individualized dose optimization techniques were used for this CT. COMPARISON: 06/08/2023 FINDINGS: The visualized lung bases are unremarkable. The visualized portions of the heart are within normal limits. No hepatic masses. Calcifications of the right hepatic lobe are stable, doubtful significance. There are surgical clips in the gallbladder fossa consistent with a prior cholecystectomy. Normal spleen. Normal pancreas. Normal bilateral adrenal glands. Normal right kidney. Normal left kidney. Normal visualized stomach. No dilated small bowel. There are multiple colonic diverticula consistent with diverticulosis. Mild residual inflammation anterior to the sigmoid wall on image 82 of series 2 has significantly decreased since prior exam. There are surgical clips in the region of the appendix consistent with a prior appendectomy. There is diffuse atherosclerotic calcification of the abdominal aorta, without a demonstrated aneurysm. Normal inferior vena cava. Normal retroperitoneum. Normal urinary bladder. There is atrophy of the uterus. Normal abdominal wall. There are diffuse degenerative changes of the visualized lumbar spine. CT/Abdomen/Pelvis W IV Cont ONLY IMPRESSION: 1. Since 06/08/2023, favorable change. Nearly resolved sigmoid diverticulitis. 2. Chronic changes, as above. Electronically Signed: Reid Daniel MD ([place]) at 20:17 EDT ,
== END | disposition home or self-care (01) ==
LOC: CT 14:54
PROVIDERS: PCP Family Medicine; Referring Provider Family Medicine; Visit Provider Family Medicine
DX: K57.32 Diverticulitis of large intestine without perforation or abscess without bleeding (principal)
CPT/HCPCS: 74177; Q9967

== ENCOUNTER 2023-07-08 00:58 | Emergency (ER) | payer MEDICAID, SELFPAY ==
[2023-07-08 01:00] VITALS: BP 118/68; PULSE 68; RESP 16; TEMP 36.1; O2SAT 98; BMI 31.3
--- NOTE | 2023-07-08 01:02 | CT_ITS ---
EXAM: CT HEAD WITHOUT INTRAVENOUS CONTRAST CLINICAL INDICATION: headache, Altered mental status TECHNIQUE: Multiple axial images were obtained of the head without intravenous contrast. This CT exam was performed using one or more of the following dose reduction techniques: automated exposure control, adjustment of the mA and/or kV according to patient size, and/or use of iterative reconstruction technique. RADIATION DOSE: Total DLP: 907.97 mGy-cm. COMPARISON: No relevant prior studies available. FINDINGS: BRAIN AND EXTRA-AXIAL SPACES: Findings of mild atrophy are present with prominence of the cortical sulci, basal cisterns, sylvian fissures and ventricles. Mild patchy chronic small vessel ischemic changes are noted within the deep white matter tracts. Tiny old lacunar infarction or prominent perivascular space noted within the anterior limb of the right internal capsule. No intra- or extra-axial hemorrhage. No intracranial mass or mass effect. Posterior fossa structures are unremarkable. Shrestha-white matter differentiation is preserved. BONES/JOINTS: Unremarkable. No discrete lytic or blastic abnormalities. VASCULATURE: The middle cerebral arteries are not hyperdense. SINUSES: Unremarkable as visualized. Clear. MASTOID AIR CELLS: Unremarkable. Clear. ORBITS: Visualized globes, extraocular muscles, optic nerves and retrobulbar fat appear unremarkable. CT/Brain/Head without Contrast IMPRESSION: Mild atrophy with patchy chronic small vessel ischemic changes. No acute findings in the head/brain. Electronically Signed: Steven Liriano MD at 2:00 EDT ,
[2023-07-08 01:24] LABS: Absolute Lymphocyte Count 2.67 X10^3/uL (0.83-4.51); Basophil# 0.02 X10^3/uL; Basophil% 0.4 % (0-1); Eosinophil# 0.08 X10^3/uL; Eosinophils% 1.5 % (0-5); Hematocrit 34.9 % (37-47); Hemoglobin 11.6 g/dL (12.0-15.0); Lymphocyte # 2.67 X10^3/ul (0.83-4.51); Lymphocyte % 50.6 % (19-41); Mean Corp Hgb Conc 33.2 g/dL (32-36); Mean Corpuscular Hgb 30.9 pg (27.0-32.0); Mean Corpuscular Volume 93.1 fL (81-99); Mean Platelet Vol. 11.3 fl (6.2-12.0); Monocyte# 0.48 X10^3/uL; Monocyte% 9.1 % (0-10); NRBC Flagged by Analyzer 0 % (0-5); Neutrophil # 2.02 X10^3/uL (2.7-7.7); Neutrophil % 38.2 % (47-70); Platelet Count 199 K/mm3 (150-450); RBC Distribution Width CV 12.4 % (11.6-14.6); RBC Distribution Width SD 42.3 fl (35.1-43.9); Red Blood Count 3.75 M/mm3 (4.2-5.4); White Blood Count 5.3 K/mm3 (4.4-11.0)
[2023-07-08 01:32] LABS: Anion Gap 5 (5-15); BUN 12 mg/dL (7-18); BUN/Creat Ratio 13.8 RATIO (10-20); Calcium,Total 8.8 mg/dL (8.5-10.1); Chloride 102 mmol/L (98-107); Creatinine, Serum 0.87 mg/dL (0.55-1.02); EST Glomerular Filtration Rate 71 mL/min (>60); Est Glom Filt Rate - Afr Amer 86 mL/min (>60); Estimated Creatinine Clearance 66.79 ml/min; Glucose 111 mg/dL (74-106); Potassium 3.1 mmol/L (3.5-5.1); Sodium Level 139 mmol/L (136-145)
[2023-07-08 02:54] LABS: Bacteria 0 SEEN /hpf (None Seen); Mucous, Urine 0 SEEN /hpf (<or=2+); Red Blood Cells-Urine 0 SEEN /hpf (0-5); Squamous Epithelial Cells - UA 0 SEEN /hpf (5-10); White Blood Cells 0 SEEN /hpf (0-5)
[2023-07-08 03:22] LABS: Color, Urine Yellow (Yellow); Glucose, Dipstick Normal (Normal); Ketone-Dipstick Negative (Negative); Leukocyte Esterase-Dipstick 100 /ul (Negative); Nitrite-Dipstick Negative (Negative); Occult Blood-Urine Negative /ul (Negative); Protein-Dipstick Negative (Negative); Urine Bilirubin Dipstick Negative (Negative); Urine Clarity Clear (Clear); Urine Urobilinogen Normal (Normal); Urine pH 6.5 (5.0 - 8.0)
--- NOTE | 2023-07-08 03:30 | EX.ED.DYSGE1 ---
HPI History of Present Illness Chief Complaint: General Illness Detail of Chief Complaint: Can believe she is having a reaction to the patient she was prescribed for Informant: patient and family Onset/Context/Timing Onset: Today Context: Sudden Onset Timing: Continuous Quality: Not feeling well, headache, trouble with eyes, not feeling well Location: Generalized Current Severity: Mild Maximum Severity: Moderate Worsened by: Patient believes she is having a reaction to the antiviral attic she was pr Relieved by: Nothing Associated Symptoms Associated Symptoms: Per HPI narrative Narrative Narrative: Patient is a 58-year-old woman with history of depression, anxiety, hyper rate is him and lung disease presents with headache, problems with a rise and concern for allergic reaction. She also has history of heart disease and COPD. She was seen by her doctor and diagnosed with shingles. She denies hypersensitivity. She denies blistering or crusting of the lesions. She denies the lesions being painful. She is not able to tell me if she is having blurred vision versus double vision. She states her eyes are not working . She denies difficulty swallowing. Family has not noted slurring of her words or problems understanding her. She denies chest discomfort, shortness of breath, orthopnea or PND. She denies cough, shortness of breath or dyspnea on exertion. She denies nausea, vomiting or diarrhea. She denies dysuria, frequency, urgency or hematuria. She has not noted any skin lesions. Prior similar symptoms: No Recent Illness/Hospitalization: Yes [facility] Medical History Acute diastolic (congestive) heart failure (04/18/18) Acute on chronic respiratory failure with hypoxia and hypercapnia Arthritis Asthma Asthma-COPD overlap syndrome Atherosclerosis of coronary artery of [place] heart without angina pectoris Bipolar disorder Bronchitis Chronic back pain Chronic neck and back pain COPD (chronic obstructive pulmonary disease) Cough COVID-19 (09/2021) Depression Difficulty balancing Diverticula of colon Encounter for screening for COVID-19 GERD (gastroesophageal reflux disease) History of non-ST elevation myocardial infarction (NSTEMI) (04/16/18) History of sepsis Hypersomnia, unspecified Hypoglycemia Hypokalemia Hypothyroidism Limb weakness Myocardial infarct Obesity Paroxysmal supraventricular tachycardia Severe headache Sore throat Stomach ulcer TMJ (temporomandibular joint syndrome) Urinary incontinence Home Medications lamotrigine 200 mg disintegrating tablet 200 mg PO BID seizure 04/15/18 [History Last Taken 01/28/22 0800] aspirin 81 mg chewable tablet 81 mg PO DAILY 04/21/18 [Rx Last Taken Unknown] cmcqfwplvi-apdpfvfppjlws-lqateqrq 50 mg-325 mg-40 mg tablet 1 tab PO PRN PRN Migraine Symptoms 30 days #90 tabs 03/04/19 [History Last Taken Unknown] promethazine 25 mg tablet 1 tab PO PRN PRN Nausea 30 days #90 tabs 03/04/19 [History Last Taken Unknown] ibuprofen 600 mg tablet 600 mg PO TID PRN pain #42 tabs 09/28/20 [Rx Last Taken Unknown] cyclobenzaprine 10 mg tablet 20 mg PO Q6H PRN MUSCLE SPASMS 02/03/21 [History Last Taken Unknown] pantoprazole 40 mg tablet,delayed release 40 mg PO BID 02/03/21 [History Last Taken Unknown] ezetimibe 10 mg tablet 10 mg PO DAILY cholesterol 10/06/21 [History Last Taken 10/05/21 09:00] levothyroxine 125 mcg tablet 125 mcg PO DAILY 01/28/22 [History Last Taken Unknown] nystatin 100,000 unit/mL oral suspension 5 ml mucous membrane TID PRN thrush 01/28/22 [History Last Taken Unknown] fluticasone propionate 50 mcg/actuation nasal spray,suspension 2 spray intranasal DAILY #16 grams 02/21/22 [Rx Last Taken Unknown] albuterol sulfate 2.5 mg/3 mL (0.083 %) solution for nebulization 2.5 mg (3 mL) inhalation Q4HWA.RT #180 mL 04/04/22 [Rx Last Taken Unknown] budesonide-formoterol HFA 160 mcg-4.5 mcg/actuation aerosol inhaler (Symbicort) 2 puff inhalation BID #3 ea 04/04/22 [Rx Last Taken Unknown] fluoxetine 20 mg capsule 40 mg PO BID 04/18/22 [History Last Taken Unknown] furosemide 20 mg tablet 20 mg PO DAILY PRN 04/18/22 [History Last Taken Unknown] diazepam 5 mg tablet 5 mg PO TID Anxiety 01/29/23 [History Last Taken Unknown] guaifenesin 1,200 mg tablet, extended release 12 hr 1,200 mg PO Q12H #60 tabs 01/29/23 [Rx Last Taken Unknown] prednisone 10 mg tablet 10 mg PO QDAY #30 tabs 01/29/23 [Rx Last Taken Unknown] albuterol sulfate 90 mcg/actuation aerosol inhaler 2 puff inhalation Q4H PRN PRN Wheezing ##1 02/23/23 [Rx Last Taken Unknown] atenolol 25 mg tablet See Rx Instructions .Route .COMPLEX #90 TABLETS 02/23/23 [Rx Last Taken Unknown] ciprofloxacin HCl 500 mg tablet 500 mg PO BID #14 TABLETS 06/08/23 [Rx Last Taken Unknown] oxycodone-acetaminophen 5 mg-325 mg tablet 1 tab PO Q6H PRN PRN Pain 3 days #12 TABLETS 06/08/23 [Rx Last Taken Unknown] Allergy/AdvReac Type Severity Reaction Status Date / Time amoxicillin Allergy Severe Shortness Verified 07/08/23 00:59 of breath azithromycin Allergy Severe Shortness Verified 07/08/23 00:59 of breath clindamycin Allergy Severe Shortness Verified 07/08/23 00:59 of breath doxycycline Allergy Severe Shortness Verified 07/08/23 00:59 of breath erythromycin lactobionate Allergy Severe Shortness Verified 07/08/23 00:59 [From Erythrocin] of breath Penicillins Allergy Severe Shortness Verified 07/08/23 00:59 of breath Sulfa (Sulfonamide Allergy Severe Shortness Verified 07/08/23 00:59 Antibiotics) of breath sulfamethoxazole Allergy Severe Shortness Verified 07/08/23 00:59 [From Bactrim] of breath trimethoprim [From Bactrim] Allergy Severe Shortness Verified 07/08/23 00:59 of breath Antihistamines - Alkylamine Allergy NEEDS Verified 07/08/23 00:59 FOLLOW-UP Antihistamines - Ethanolamine Allergy NEEDS Verified 07/08/23 00:59 FOLLOW-UP Antihistamines - Allergy NEEDS Verified 07/08/23 00:59 Ethylenediamine FOLLOW-UP Antihistamines - Piperidine Allergy NEEDS Verified 07/08/23 00:59 FOLLOW-UP meloxicam [From Mobic] Allergy Chest Verified 07/08/23 00:59 tightness tramadol Allergy Unknown Verified 07/08/23 00:59 codeine AdvReac Nausea/Vom/ Verified 07/08/23 00:59 [From Tylenol-Codeine #3] Diarrhea gabapentin AdvReac Other Verified 07/08/23 00:59 terbutaline [From Brethine] AdvReac Other Verified 07/08/23 00:59 Family History Mother Hypertension Pulmonary embolism Psychiatric care Father Lung cancer Grandmother Breast cancer Sister Asthma Seizures Psychiatric care Depression Son Depression Psychiatric care ADHD Daughter Depression Psychiatric care Bipolar 1 disorder Surgical History History of appendectomy History of section History of cholecystectomy History of dilatation and curettage History of endometrial ablation History of left heart catheterization (04/18/18) History of left oophorectomy hx of throat biopsy Social History household members: children Smoking Status: Former smoker Tobacco: How many years used: 40 how long ago did patient quit smokin, 1.5ppd second hand exposure: Yes substance use type: does not use ROS ROS ED Constitutional Constitutional ED: Denies chills, subjective, sweats or weight loss Eyes Eyes: Reports blurry vision and change in vision; Denies diplopia ENT ENT ED: Denies ear pain, rhinorrhea or sore throat Cardiovascular Cardiovascular: Denies chest pain or palpitations Respiratory/Chest Respiratory/Chest: Denies cough, dyspnea or dyspnea on exertion Gastrointestinal Gastrointestinal: Denies abdominal pain, nausea or vomiting Genitourinary Genitourinary ED: Denies dysuria, hematuria or urinary frequency Musculoskeletal Musculoskeletal: Denies arthralgias, back pain or myalgias Integumentary Denies rash Neurologic Neurologic: Reports headache(s) and weakness; Denies paresthesias Psychiatric Psychiatric: Reports anxiety and depression Endocrine Endocrinology: Denies cold intolerance or heat intolerance Hematologic/Lymphatic Hematologic/Lymphatic: Reports systems reviewed and no addt'l complaints, except as documented Allergic/Immunologic Allergic/Immunologic ED: Denies mouth swelling or tongue swelling EXAM Physical Exam Const Vital Signs: 07/08/23 01:00 07/08/23 01:02 Temperature 97 F L Temperature Source Temporal Pulse Rate 68 Respiratory Rate 16 Respiratory Effort Normal Blood Pressure 118/68 Blood Pressure Mean 84 Pulse Ox 98 Positive well nourished, well developed, obese and unkempt General Appearance ED: unkempt, well developed and NAD; Negative for cyanotic, diaphoretic or pallor Nutritional Appearance: obese HEENT Reports TM's clear and moist mucous membranes HEENT Narrative: Atraumatic and normocephalic. Ears are normal. Nares are patent. Posterior pharynx out erythema or exudate. Uvula is midline. There is no deviation tongue with protrusion. Tympanic Membrane ED: Yes TM's clear Eyes PERRL and EOMs intact bilaterally General Eye ED: Negative for pale conjunctiva or scleral icterus Neck no lymphadenopathy, supple and no JVD Neck Narrative: He is midline. There is no inspiratory or expiratory stridor. Chest Wall inspection of chest normal and palpation of chest normal Resp normal respiratory effort and clear to auscultation bilaterally Cardio regular rate, regular rhythm, S1 normal heart sound, S2 normal heart sound and no murmurs GI normal to inspection, nondistended, normoactive bowel sounds, non-tender, non-distended and no masses; Negative for hepatosplenomegaly Back/Spine no CVA tenderness Extremity normal to inspection General Extremety ED: Negative for edema or tenderness General Extremity: Negative for edema Neuro oriented x3, CN's II-XII intact bilaterally and no sensory deficits noted Neuro Narrative: DTRs are 1+ at the bicep, brachialis, triceps, patella and ankle. There is no clonus or Babinski sign noted. Motor Exam: strength 5/5 throughout Psych Psych Narrative: Mood is flat. Affect is depressed. Patient has slow speech. Appearance: unkempt Skin no rashes or lesions noted, no wounds and No skin turgor normal General Skin Exam: Negative for jaundice or pallor MDM MDM MDM Narrative Medical decision making narrative: Patient's constellation of symptoms complaining of severe headache and reportedly ocular symptoms will obtain CT of the head to assess for sinusitis, subarachnoid hemorrhage or intraparenchymal bleed. CBC to assess white count and assess for anemia. BMP to assess blood sugar and glucose. UA to assess for specific gravity and evidence of infection. I was informed at 0332 the patient was able to see and walk to the restroom. Lab Data Labs: Laboratory Results - last 24 hr 07/08/23 07/08/23 01:15 02:50 WBC 5.3 RBC 3.75 L Hgb 11.6 L Hct 34.9 L MCV 93.1 MCH 30.9 MCHC 33.2 RDW Std Deviation 42.3 RDW Coeff of Lino 12.4 Plt Count 199 MPV 11.3 Immature Gran % (Auto) 0.200 Neut % (Auto) 38.2 L Lymph % (Auto) 50.6 H [place] % (Auto) 9.1 Eos % (Auto) 1.5 Baso % (Auto) 0.4 Absolute Neuts (auto) 2.0 Absolute Lymphs (auto) 2.67 Nucleated RBC % 0 Sodium 139 Potassium 3.1 L Chloride 102 Carbon Dioxide 32.0 Anion Gap 5 BUN 12 Creatinine 0.87 Estim Creat Clear Calc 66.79 Est GFR (MDRD) Af Amer 86 Est GFR (MDRD) Non-Af 71 BUN/Creatinine Ratio 13.8 Glucose 111 H Calcium 8.8 Urine Color Yellow Urine Clarity Clear Urine pH 6.5 Ur Specific [place] 1.010 Urine Protein Negative Urine Glucose (UA) Normal Urine Ketones Negative Urine Occult Blood Negative Urine Nitrite Negative Urine Bilirubin Negative Urine Urobilinogen Normal Ur Leukocyte Esterase 100 H Radiography Diagnostic Testing: Clinical Impression(s) from Imaging Studies Brain CT 07/08/23 01:02 IMPRESSION: Mild atrophy with patchy chronic small vessel ischemic changes. No acute findings in the head/brain. Electronically Signed: Steven Liriano MD at 2:00 EDT , Allergy report was read. The CT was reviewed by me independently. Did not see any acute abnormality. Treatment and Re-Evaluation :: And the fact the patient now able to see walk to the restroom suspect this represents a conversion reaction. She was told that she did not have an allergic reaction to the medicine. Uncertain whether patient does or does not have shingles. Based on what I see there is a patch that is 3 x 4 cm in size left side of the mid lateral abdomen. There is no other lesions noted. There is no crusting or blistering noted. Discharge Plan Triage Chief Complaint: General Illness ED Provider: Ventura Baez Dx/Rx/DC Orders Clinical Impression: Conversion reaction, Atherosclerosis of coronary artery of [place] heart without angina pectoris, Smoking greater than 30 pack years, Obesity, Acute headache Instructions: Self-Care for Headaches, ED Conversion Reaction Prescriptions: No Action promethazine 25 mg tablet 1 tab PO PRN PRN (Reason: Nausea) 30 Days Qty: 90 dulbldgrgf-vobejmsopdtyd-kltd 50-325-40 mg tablet 1 tab PO PRN PRN (Reason: Migraine Symptoms) 30 Days Qty: 90 cyclobenzaprine 10 mg tablet 20 mg PO Q6H PRN (Reason: MUSCLE SPASMS) pantoprazole 40 mg tablet,delayed release (DR/EC) 40 mg PO BID furosemide 20 mg tablet 20 mg PO DAILY PRN albuterol sulfate 2.5 mg /3 mL (0.083 %) solution for nebulization 2.5 mg inhalation Q4HWA.RT Qty: 180 6RF budesonide-formoterol [Symbicort] 160-4.5 mcg/actuation HFA aerosol inhaler 2 puff inhalation BID Qty: 3 3RF Rx Instructions: administer with spacer, rinse mouth after each use prednisone 10 mg tablet 10 mg PO QDAY Qty: 30 0RF Rx Instructions: take 4 tabs for three days, then 3 tabs for three days, then 2 tabs for three days, then 1 tab for 3 days guaifenesin 1,200 mg tablet extended release 12hr 1,200 mg PO Q12H Qty: 60 6RF lamotrigine 200 MG tablet,disintegrating 200 mg PO BID aspirin 81 MG tablet,chewable 81 mg PO DAILY 0RF fluoxetine 20 mg capsule 40 mg PO BID diazepam 5 mg tablet 5 mg PO TID ezetimibe 10 mg tablet 10 mg PO DAILY levothyroxine 125 mcg tablet 125 mcg PO DAILY Patient Comments: TAKE 1 TABLET BY MOUTH EVERY DAY IN THE MORNING ON EMPTY STOMACH nystatin 100,000 unit/mL suspension 5 ml mucous membrane TID PRN (Reason: thrush) Rx Instructions: swish and swallow 5 cc three times per day for 10 days ciprofloxacin HCl [ciprofloxacin HCl] 500 mg tablet 500 mg PO BID Qty: 14 0RF oxycodone-acetaminophen [oxycodone-acetaminophen] 5-325 mg tablet 1 tab PO Q6H PRN PRN (Reason: Pain) 3 Days Qty: 12 0RF ibuprofen 600 mg tablet 600 mg PO TID PRN (Reason: pain) Qty: 42 0RF fluticasone propionate 50 mcg/actuation spray,suspension 2 spray INTRANASAL DAILY Qty: 16 6RF atenolol 25 mg tablet See Rx Instructions .ROUTE .COMPLEX Qty: 90 4RF Dose Instruction: TAKE 1 TABLET BY MOUTH EVERY DAY Rx Instructions: TAKE 1 TABLET BY MOUTH EVERY DAY albuterol sulfate 90 mcg/actuation HFA aerosol inhaler 2 puff inhalation Q4H PRN PRN (Reason: Wheezing) Qty: 1 11RF Primary Care Provider: Sofy Richter Referrals: Sofy Richter DO [Primary Care Provider] - 3-5 Days Disposition Disposition: Home, Self Care
[2023-07-08] MEDS: Acetaminophen 500 MG Tablet PO (03:49)
[2023-07-08] MEDS: Ondansetron ODT 4 MG Tablet PO (03:49)
[2023-07-08 03:51] VITALS: BP 124/74; PULSE 64; RESP 18; O2SAT 99
== END 2023-07-08 03:52 | disposition home or self-care (01) ==
PROVIDERS: Emergency Provider Emergency Medicine; PCP Family Medicine; Visit Provider Emergency Medicine
DX: F44.9 Dissociative and conversion disorder, unspecified (principal); J44.9 Chronic obstructive pulmonary disease, unspecified; I25.10 Atherosclerotic heart disease of native coronary artery without angina pectoris; B02.9 Zoster without complications; E66.9 Obesity, unspecified; R51.9 Headache, unspecified; F41.9 Anxiety disorder, unspecified; Z87.891 Personal history of nicotine dependence; F32.A Depression, unspecified
CPT/HCPCS: 51701; 70450; 80048; 81001; 85025; 99285; P9612; A4216

== ENCOUNTER → 2023-08-13 | Outpatient (CLI) | payer MEDICAID, SELFPAY | END | disposition home or self-care (01) | LOC: BFHLAB 16:18 | PROVIDERS: PCP Family Medicine; Referring Provider Family Medicine; Visit Provider Family Medicine | DX: R30.0 Dysuria (principal) | CPT/HCPCS: 87077; 87086; 87088; 87186 ==

== ENCOUNTER → 2023-09-19 | Outpatient (CLI) | payer MEDICAID, SELFPAY ==
--- NOTE | 2023-09-19 14:58 | CT_ITS ---
STUDY: LOW DOSE CT LUNG CANCER SCREENING REASON FOR EXAM: Female, 58 years old. smoker RADIATION DOSAGE (If Supplied By Facility): CTDIvol = ( 3.02 ) mGy, DLP = ( 91.76 ) mGycm TECHNIQUE: No contrast was administered. Low dose technique was utilized (average mAS-38 and kVp 120). 1.25 mm axial source images with a slice interval of 1.25-mm were reconstructed in lung windows. 2.5 mm axial source images with a slice interval of 2.5-mm were reconstructed in lung windows. 5.0 mm axial source images with a slice interval of 5.0-mm were reconstructed in soft tissue windows. COMPARISON: 03/03/2021 Emphysema: Moderate emphysema. No noncalcified nodule or mass. Endobronchial lesion: None Aorta: No aortic aneurysm. CORONARY ARTERIES: Coronary artery calcification is seen. Heart: No cardia megaly. Pulmonary artery: Normal Mediastinal nodes: Normal Other chest and abdominal findings: None CT/Low Dose CT Lung Screening IMPRESSION: Lung-RADS category 1 - Continue annual screening with LDCT in 12 months. IMPORTANT NOTES FOR USE: ACR Lung-RADS Version 1.1 Assessment Categories Release Date: 2018 Category: Coded 0-4 bases on nodule(s) with highest degree of suspicion. Negative screen is defined as categories 1 and 2; a positive screen is defined as categories 3 and 4. Category 3 and 4A nodules that are unchanged on interval CT should be coded as category 2, and individuals returned to screening in 12 months. Category 4X: Category 3 or 4 nodules with additional imaging findings that increase the suspicion of lung cancer, such as spiculation, GGN that doubles in size in 1 year, enlarged lymph notes, etc. Category Modifiers: S (significant finding unrelated to lung cancer) Electronically Signed: Gustavo Goins MD at 23:34 EST ,
== END | disposition home or self-care (01) ==
LOC: CT 14:57
PROVIDERS: PCP Family Medicine; Referring Provider Nurse Practitioner Acute Care; Visit Provider Nurse Practitioner Acute Care
DX: F17.210 Nicotine dependence, cigarettes, uncomplicated (principal)
CPT/HCPCS: 71271

== ENCOUNTER 2023-11-06 16:00 | Outpatient (RCR) | payer MEDICAID, SELFPAY ==
--- NOTE | 2023-05-30 15:31 | HP.PTEVAL ---
Patient's Visit Information Visit Information Visit Information: ALEXEI FOWLER is a 58 year old F referred to Physical Therapy by Dr. Sofy Richter DO with a diagnosis of L lateral thigh pain. Date of Evaluation: 05/30/23 Physical Therapist: Justin Solorio, PT, ATC Visit Plan Frequency: 2-3x /Week Duration: 4-6 Weeks Plan: SKTC/DKTC, core stab ex's, L LE strengthening, bike, and HEP Subjective Subjective: Pt reports she fell 3-4 months ago which has resulted in L LE pain. Pt notes her pain is located on the lateral aspect of her L thigh and extends to the knee region. Pt reports she has hypersensitivity in her L thigh to the point where she cant tolerate wearing pants due to her sensitivity. Pt had x-rays of her L thigh which revealed no significant findings. Pt denies knee or hip pain at this time. Pt also denies groin pain at this time. Pt reports she has stairs at home that she has to negotiate one step at a time. Pt reports she has pain while she is ambulating, but notes she continues to ambulate anyways. Pt reports she just wants to be able to ambulate and take care of her family again without having so much pain. Pt reports sleep difficulty at this time secondary to pain. Pt reports her pain is constant in nature and is rated at 9/10 constantly. Pain L lateral thigh pain: Pain Intensity (Out of 10): 9 Pain Intensity Range: 10 Objective Objective: Neuro: L Lateral thigh is very hyper sensitive to light touch. R LE is WNL Palpation: No pain in L hip or knee. Severe pain on L lateral thigh. ROM: L/S is minimally limited with ext. All other ranges are WNL MMT: L hip flex, suresh ext, and knee flex are are 4/5 throughout and painful. All other B LE MMT 5/5 throughout Repeated movements: Prone prop on elbows radiates pain down legs. SKTC/DKTC centralizes LBP Balance/Special Test Scores Oswestry Low Back Score: 39 Goals Goal 1:: Decrease L LE pain x 50% to aid with sleep Goal Time Frame: 4-6 Weeks Goal 2:: Decrease the frequency and intensity of L LE radiculopathy x 50% to aid with ambulation Goal Time Frame: 4-6 Weeks Goal 3:: Increase L LE strength to 5/5 throughout to aid with IADL's Goal Time Frame: 4-6 Weeks Goal 4:: I with HEP Goal Time Frame: 4-6 Weeks Rehabilitation Potential Physical Therapy Diagnosis: Pt has L lateral thigh pain, L LE radiculopathy and limited L/S ROM secondary to deg changes of the L/S Rehabilitation Potential: Good Anticipated Interventions Patient/Client Instruction: Educate patient on: Condition and Plan of Care For the Purpose of:: To improve self management Therapeutic Exercise to Include: Strength training, Endurance training, Postural training, Flexibilty training, Active ROM, Dynamic Lumbar Stabilization and Vaibhav Exercises For the Purpose of:: To decrease pain, To increase ROM and To improve muscle performance and motor function Cryotherapy (ice pack, ice massage): Yes For the Purpose of:: To decrease pain Text: Thank you for the opportunity to evaluate your patient. For Medicare and Medicare HMO plans, please review the plan of care and approve it. It will need to be FAXED BACK to us at [phone] for Medicare purposes. For Medicare only, by signing this I certify the plan of care. Please let me know if there are questions or concerns regarding this plan of care. Physician Signature: Date:
--- NOTE | 2023-09-04 11:50 | HP.PTREVAL ---
Re-Evaluation Intro: Dr. Sofy Richter, DO, It has been my pleasure to treat ALEXEI FOWLER over the last 6 visits for L lateral thigh pain. Please see the progress note below for an update on the physical therapy plan of care! Subjective Subjective: I dont have any LBP today. I do have left lateral leg pain Objective Objective/Function: L leg pain ranges from 1-7/10 Pt reports no L LE radiculopathy L LE strength is grossly 4/5 throughout Pt has finally started to feel better after her extended illness. Plan Plan Plan: Cont with Core stab ex's, L LE strengthening, bike, and HEP Balance/Gait/Functional tests Balance/Special Test Scores Oswestry Low Back Score: 39 Goals Goals Goal 1:: Decrease L LE pain x 50% to aid with sleep Goal Time Frame: 4-6 Weeks Goal Progress: Goal Met Goal 2:: Decrease the frequency and intensity of L LE radiculopathy x 50% to aid with ambulation Goal Time Frame: 4-6 Weeks Goal Progress: Goal Met Goal 3:: Increase L LE strength to 5/5 throughout to aid with IADL's Goal Time Frame: 4-6 Weeks Goal Progress: Progressing Goal 4:: I with HEP Goal Time Frame: 4-6 Weeks Goal Progress: Progressing Anticipated Interventions Anticipated Interventions Patient/Client Instruction: Educate patient on: Condition and Plan of Care For the Purpose of:: To improve self management Therapeutic Exercise to Include: Strength training, Endurance training, Postural training, Flexibilty training, Active ROM, Dynamic Lumbar Stabilization and Vaibhav Exercises For the Purpose of:: To decrease pain, To increase ROM and To improve muscle performance and motor function Cryotherapy (ice pack, ice massage): Yes For the Purpose of:: To decrease pain Re-Evaluation Ending Re-evaluation ending: Please do not hesitate to contact me at [phone] by phone or if you have questions or concerns regarding this new plan of care! Sincerely, Justin Solorio, PT, ATC
--- NOTE | 2023-09-28 14:42 | HP.PTREVAL ---
Re-Evaluation Intro: Dr. Sofy Richter, DO, It has been my pleasure to treat ALEXEI FOWLER over the last 14 visits for L lateral thigh pain. Please see the progress note below for an update on the physical therapy plan of care! Subjective Subjective: Pt reports her pain is pretty constant at 6/10 Objective Objective/Function: L leg pain 6/10 today L LE MMT 4/5 throughout L LE radiculopathy is about the same Pt is showing progress toward Rx goals, but still lacks functional strength at this time. Plan Plan Plan: Continue light core strengthening Balance/Gait/Functional tests Balance/Special Test Scores Oswestry Low Back Score: 39 Lower Extremity Functional Score: 30 Goals Goals Goal 1:: Decrease L LE pain x 50% to aid with sleep Goal Time Frame: 4-6 Weeks Goal Progress: Goal Met Goal 2:: Decrease the frequency and intensity of L LE radiculopathy x 50% to aid with ambulation Goal Time Frame: 4-6 Weeks Goal Progress: Progressing Goal 3:: Increase L LE strength to 5/5 throughout to aid with IADL's Goal Time Frame: 4-6 Weeks Goal Progress: Progressing Goal 4:: I with HEP Goal Time Frame: 4-6 Weeks Goal Progress: Progressing Anticipated Interventions Anticipated Interventions Patient/Client Instruction: Educate patient on: Condition and Plan of Care For the Purpose of:: To improve self management Therapeutic Exercise to Include: Strength training, Endurance training, Postural training, Flexibilty training, Active ROM, Dynamic Lumbar Stabilization and Vaibhav Exercises For the Purpose of:: To decrease pain, To increase ROM and To improve muscle performance and motor function Cryotherapy (ice pack, ice massage): Yes For the Purpose of:: To decrease pain Re-Evaluation Ending Re-evaluation ending: Please do not hesitate to contact me at [phone] by phone or if you have questions or concerns regarding this new plan of care! Sincerely, Justin Solorio, PT, ATC
--- NOTE | 2023-11-06 16:34 | HP.PTDCSUM ---
Discharge Summary D/C summary: It has been my pleasure to treat ALEXEI FOWLER referred by Dr. Sofy Richter DO, with the diagnosis of L lateral thigh pain for a total of 16 visit(s). Discharge Date: Please see the following information for a summary of their discharge status. Subjective Subjective: I dont really have pain this date. Pain L lateral thigh pain: Pain Intensity (Out of 10): 0 Overall Improvement % Improvement: 95 Objective Objective/Function: L hip pain ranges from 0-1/10 L LE MMT 5/5 throughout Pt denies L LE radiculopathy Pt is I with HEP Goals Goal 1:: Decrease L LE pain x 50% to aid with sleep Goal Progress: Goal Met Goal 2:: Decrease the frequency and intensity of L LE radiculopathy x 50% to aid with ambulation Goal Progress: Goal Met Goal 3:: Increase L LE strength to 5/5 throughout to aid with IADL's Goal Progress: Goal Met Goal 4:: I with HEP Goal Progress: Goal Met Plan Plan: Discharge to HEP D/C Information d/c sentence: If there are questions or concerns regarding this patient's physical therapy, please feel free to call me at [phone]. Thank you for the referral of this patient. Sincerely, Justin Solorio, PT, ATC Balance/Gait/Functional tests Balance/Special Test Scores Oswestry Low Back Score: 39 Lower Extremity Functional Score: 77 Improvement % Improvement: 95
== END 2023-11-06 19:00 | disposition home or self-care (01) ==
LOC: PT 16:00
PROVIDERS: PCP Family Medicine; Referring Provider Family Medicine; Visit Provider Family Medicine
DX: M54.16 Radiculopathy, lumbar region (principal)
CPT/HCPCS: 97110; 97140; 97161; 97164; 97530

== ENCOUNTER → 2023-12-13 | Outpatient (CLI) | payer MEDICAID, SELFPAY ==
--- OUTSIDE RECORDS SUMMARY | 2023-12-13 08:56 | XMS RPT_ITS | CCD ---
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 Name Role Phone IRAIDA QUESADA Unavailable Unavailable ROTHMAN, JIANMING Unavailable Unavailable RICKY KORI Unavailable Unavailable ROTHMAN, JIANMING Unavailable Unavailable ROTHMAN, JIANMING Unavailable Unavailable SABOTA, THOMAS W Unavailable Unavailable SABOTA, THOMAS W Unavailable Unavailable ROTHMAN, JIANMING Unavailable Unavailable Floridalma Martin Unavailable Unavailabl e Results Test Name Value Interpretation Reference Range Facil ity Encounters Encounter Date Encounter Type Care Provider Facility Start: 04-15-2018 End: 04-15-2018 Emergency department patient visit ELIJAH ROTHMAN Facil ity:B Start: 04-11-2018 End: 04-14-2018 Evaluation and management of inpatient ELIJAH Schafer acility:B Start: 12-18-2017 End: 12-18-2017 Emergency department patient visit KORI GARCÍA Facil ity:B Start: 08-11-2017 End: 08-11-2017 Emergency department patient visit IRAIDA QUESADA Facil ity:B Payers Date Payer Category Payer Unknown [id number] Summary Purpose Family History No Family History Records Found Advance Directives No Advanced Directives Records Found Additional Source Comments INFORMATION SOURCE (unrecogn ized section and content) FOR RECORDS PERTAINING TO PATIENTS WHO ARE OR HAVE BEEN ENROLLED IN A CHEMICAL DEPENDENCY/SUBSTANCEABUSE PROGRAM, SOME INFORMATION MAY BE OMITTED. This clinical summary was aggregated from multiple sources. Caution should be exercised in using it in the provision of clinical care. This summary normalizes information from multiple sources, and as a consequence, information in this document may materially change the coding, format and clinical context of patient data. In addition, data may be omitted in some cases. CLINICAL DECISIONS SHOULD BE BASED ON THE PRIMARY CLINICAL RECORDS. [employer] provides no warranty or guarantee of the accuracy or completeness of information in this document.
== END | disposition home or self-care (01) ==
LOC: BFHLAB 08:34 → LAB.FUTURE 08:35 → BFHLAB 08:36
PROVIDERS: PCP Family Medicine; Visit Provider Family Medicine
DX: E03.9 Hypothyroidism, unspecified (principal); E78.5 Hyperlipidemia, unspecified; E87.6 Hypokalemia; R73.03 Prediabetes; Z51.81 Encounter for therapeutic drug level monitoring

== ENCOUNTER → 2024-02-06 | Outpatient (CLI) | payer MEDICAID, SELFPAY ==
[2024-02-06 17:44] LABS: Absolute Lymphocyte Count 2.36 X10^3/uL (0.83-4.51); Absolute Neutrophil Count 2.7 X10^3/uL (2.0-7.7); Basophil# 0.04 X10^3/uL; Basophil% 0.7 % (0-1); Eosinophil# 0.08 X10^3/uL; Eosinophils% 1.4 % (0-5); Hematocrit 36.5 % (37-47); Hemoglobin 11.9 g/dL (12.0-15.0); Lymphocyte # 2.36 X10^3/ul (0.83-4.51); Lymphocyte % 41.8 % (19-41); Mean Corp Hgb Conc 32.6 g/dL (32-36); Mean Corpuscular Hgb 29.8 pg (27.0-32.0); Mean Corpuscular Volume 91.3 fL (81-99); Mean Platelet Vol. 11.5 fl (6.2-12.0); Monocyte# 0.42 X10^3/uL; Monocyte% 7.4 % (0-10); NRBC Flagged by Analyzer 0 % (0-5); Neutrophil # 2.72 X10^3/uL (2.7-7.7); Neutrophil % 48.3 % (47-70); Platelet Count 221 K/mm3 (150-450); RBC Distribution Width CV 12.1 % (11.6-14.6); RBC Distribution Width SD 40.6 fl (35.1-43.9); White Blood Count 5.6 K/mm3 (4.4-11.0)
[2024-02-06 18:21] LABS: Hemoglobin A1c 5.3 % (3.8-5.6)
[2024-02-06 18:27] LABS: AST(SGOT) 28 U/L (15-37); Alanine Aminotransfer ALT/SGPT 27 U/L (13-56); Albumin, Serum 3.7 g/dL (3.2-5.0); Alkaline Phosphatase 110 U/L (45-117); Anion Gap 6 (5-15); BUN 13 mg/dL (7-18); BUN/Creat Ratio 14.8 RATIO (10-20); Calcium,Total 8.5 mg/dL (8.5-10.1); Chloride 101 mmol/L (98-107); Cholesterol 258 mg/dL (200); Creatinine, Serum 0.88 mg/dL (0.55-1.02); EST Glomerular Filtration Rate 70 mL/min (>60); Est Glom Filt Rate - Afr Amer 85 mL/min (>60); Free T3 2.4 pg/mL (2.18-3.98); Globulin 3.6 g/dL (2.2-4.2); Glucose 83 mg/dL (74-106); High Density Lipoprotein 42 mg/dL; Protein, Total 7.3 g/dL (6.4-8.2); Sodium Level 138 mmol/L (136-145); T4 Free Direct 0.82 ng/dL (0.76-1.46); Thyroid Stim Hormone (TSH) 0.32 uIU/mL (0.358-3.74); Triglycerides 267 mg/dL; Very Low Density Lipoprotein 53 mg/dL (5-40)
== END | disposition home or self-care (01) ==
PROVIDERS: PCP Family Medicine; Referring Provider Family Medicine; Visit Provider Family Medicine
DX: E78.5 Hyperlipidemia, unspecified (principal); E87.6 Hypokalemia; E03.9 Hypothyroidism, unspecified; R73.03 Prediabetes; Z51.81 Encounter for therapeutic drug level monitoring
CPT/HCPCS: 36415; 80053; 80061; 83036; 84439; 84443; 84481; 85025

== ENCOUNTER 2024-02-15 21:05 | Emergency (ER) | payer MEDICAID, SELFPAY ==
[2024-02-15 21:06] VITALS: BP 100/61; PULSE 87; RESP 16; TEMP 36.4; O2SAT 97; BMI 27.7
[2024-02-15 21:10] VITALS: RESP 18; O2SAT 94
--- NOTE | 2024-02-15 21:21 | RAD_ITS ---
STUDY: X-RAY CHEST REASON FOR EXAM: Female, 59 years old. COUGH TECHNIQUE: AP portable COMPARISON: None. FINDINGS: Mild mild reticulonodular interstitial thickening in the right lower lobe as well as mild asymmetric interstitial thickening in the left upper lobe of uncertain chronicity possibly inflammatory.. There is no demonstrated pleural abnormality. Normal size heart. Normal mediastinum and ashli. Normal visualized pulmonary arteries. Normal visualized aortic arch and descending thoracic aorta. Normal visualized thoracic spine. Normal visualized ribs, clavicles, and shoulders. There is no demonstrated abnormality of the visualized soft tissue structures of the upper abdomen. RAD/Chest 1 View (Portable) IMPRESSION: Asymmetric interstitial thickening in the right lower lobe and left upper lobe of uncertain chronicity.. Cannot exclude acute inflammatory changes. Recommend correlation with prior studies when available Electronically Signed: Matthias Alberts MD at 21:41 EDT ,
--- NOTE | 2024-02-16 00:18 | EDS_ITS ---
HPI History of Present Illness Chief Complaint: Cough Informant: patient Onset/Context/Timing Onset: Yesterday Narrative Narrative: Patient presents with cough, sore throat, and right ear pain that started yesterday afternoon. She does have a history of COPD. She complains of a generalized headache and chest and upper abdominal pain only with cough. She did have posttussive emesis last evening. [facility] Medical History Acute diastolic (congestive) heart failure (04/18/18) Acute on chronic respiratory failure with hypoxia and hypercapnia Arthritis Asthma Asthma-COPD overlap syndrome Atherosclerosis of coronary artery of [place] heart without angina pectoris Bipolar disorder Bronchitis Chronic back pain Chronic neck and back pain COPD (chronic obstructive pulmonary disease) Cough COVID-19 (09/2021) Depression Difficulty balancing Diverticula of colon Encounter for screening for COVID-19 GERD (gastroesophageal reflux disease) History of non-ST elevation myocardial infarction (NSTEMI) (04/16/18) History of sepsis Hypersomnia, unspecified Hypoglycemia Hypokalemia Hypothyroidism Limb weakness Myocardial infarct Obesity Paroxysmal supraventricular tachycardia Severe headache Sore throat Stomach ulcer TMJ (temporomandibular joint syndrome) Urinary incontinence Home Medications lamotrigine 200 mg disintegrating tablet 200 mg PO BID seizure 04/15/18 [History Last Taken 01/28/22 0800] aspirin 81 mg chewable tablet 81 mg PO DAILY 04/21/18 [Rx Last Taken Unknown] vrglajculw-hebjlpdmykldr-mjsmjpfr 50 mg-325 mg-40 mg tablet 1 tab PO PRN PRN Migraine Symptoms 30 days #90 tabs 03/04/19 [History Last Taken Unknown] promethazine 25 mg tablet 1 tab PO PRN PRN Nausea 30 days #90 tabs 03/04/19 [History Last Taken Unknown] ibuprofen 600 mg tablet 600 mg PO TID PRN pain #42 tabs 09/28/20 [Rx Last Taken Unknown] cyclobenzaprine 10 mg tablet 20 mg PO Q6H PRN MUSCLE SPASMS 02/03/21 [History Last Taken Unknown] pantoprazole 40 mg tablet,delayed release 40 mg PO BID 02/03/21 [History Last Taken Unknown] ezetimibe 10 mg tablet 10 mg PO DAILY cholesterol 10/06/21 [History Last Taken 10/05/21 09:00] levothyroxine 125 mcg tablet 125 mcg PO DAILY 01/28/22 [History Last Taken Unknown] nystatin 100,000 unit/mL oral suspension 5 ml mucous membrane TID PRN thrush 01/28/22 [History Last Taken Unknown] fluoxetine 20 mg capsule 40 mg PO BID 04/18/22 [History Last Taken Unknown] diazepam 5 mg tablet 5 mg PO TID Anxiety 01/29/23 [History Last Taken Unknown] atenolol 25 mg tablet See Rx Instructions .Route .COMPLEX #90 TABLETS 02/23/23 [Rx Last Taken Unknown] cholecalciferol (vitamin D3) 1,250 mcg (50,000 unit) capsule 50,000 unit PO QWEEK 07/27/23 [History Last Taken Unknown] furosemide 20 mg tablet 20 mg PO DAILY 07/27/23 [History Last Taken Unknown] potassium chloride 20 mEq tablet,extended release 20 meq PO DAILY 07/27/23 [History Last Taken Unknown] albuterol sulfate 2.5 mg/3 mL (0.083 %) solution for nebulization 2.5 mg (3 mL) inhalation Q4HWA.RT #180 mL 07/31/23 [Rx Last Taken Unknown] albuterol sulfate 90 mcg/actuation aerosol inhaler 2 puff inhalation Q4H PRN PRN Wheezing ##1 07/31/23 [Rx Last Taken Unknown] fluticasone propionate 50 mcg/actuation nasal spray,suspension 2 spray intranasal DAILY #16 grams 10/22/23 [Rx Last Taken Unknown] levofloxacin 750 mg tablet 750 mg PO DAILY 4 days #4 tabs 02/16/24 [Rx Last Taken Unknown] prednisone 20 mg tablet 40 mg (2 x 20 mg) PO DAILY #8 tabs 02/16/24 [Rx Last Taken Unknown] Allergy/AdvReac Type Severity Reaction Status Date / Time amoxicillin Allergy Severe Shortness Verified 02/15/24 21:09 of breath azithromycin Allergy Severe Shortness Verified 02/15/24 21:09 of breath clindamycin Allergy Severe Shortness Verified 02/15/24 21:09 of breath doxycycline Allergy Severe Shortness Verified 02/15/24 21:09 of breath erythromycin lactobionate Allergy Severe Shortness Verified 02/15/24 21:09 [From Erythrocin] of breath Penicillins Allergy Severe Shortness Verified 02/15/24 21:09 of breath Sulfa (Sulfonamide Allergy Severe Shortness Verified 02/15/24 21:09 Antibiotics) of breath sulfamethoxazole Allergy Severe Shortness Verified 02/15/24 21:09 [From Bactrim] of breath trimethoprim [From Bactrim] Allergy Severe Shortness Verified 02/15/24 21:09 of breath Antihistamines - Alkylamine Allergy doesn't Verified 02/15/24 21:09 for days Antihistamines - Ethanolamine Allergy NEEDS Verified 02/15/24 21:09 FOLLOW-UP Antihistamines - Allergy NEEDS Verified 02/15/24 21:09 Ethylenediamine FOLLOW-UP Antihistamines - Piperidine Allergy NEEDS Verified 02/15/24 21:09 FOLLOW-UP meloxicam [From Mobic] Allergy Chest Verified 02/15/24 21:09 tightness tramadol Allergy Unknown Verified 02/15/24 21:09 codeine AdvReac Nausea/Vom/ Verified 02/15/24 21:09 [From Tylenol-Codeine #3] Diarrhea gabapentin AdvReac Other Verified 02/15/24 21:09 terbutaline [From Brethine] AdvReac Other Verified 02/15/24 21:09 Family History Mother Hypertension Pulmonary embolism Psychiatric care Father Lung cancer Grandmother Breast cancer Sister Asthma Seizures Psychiatric care Depression Son Depression Psychiatric care ADHD Daughter Depression Psychiatric care Bipolar 1 disorder Surgical History History of appendectomy History of section History of cholecystectomy History of dilatation and curettage History of endometrial ablation History of left heart catheterization (04/18/18) History of left oophorectomy hx of throat biopsy Social History household members: children Smoking Status: Former smoker Tobacco: How many years used: 40 how long ago did patient quit smokin, 1.5ppd second hand exposure: Yes substance use type: does not use ROS ROS ED Constitutional Constitutional ED: Denies chills or fever(s) Eyes Eyes: Denies discharge from eye(s) ENT ENT ED: Reports rhinorrhea and sore throat; Denies discharge from eye(s) Cardiovascular Cardiovascular: Reports other Details: Chest pain with cough only ; Denies palpitations Respiratory/Chest Respiratory/Chest: Reports cough and sputum; Denies dyspnea Gastrointestinal Gastrointestinal: Reports abdominal pain and other Details: Posttussive emesis ; Denies diarrhea, nausea or vomiting Genitourinary Genitourinary ED: Denies dysuria Musculoskeletal Musculoskeletal: Denies back pain or extremity pain Integumentary Denies Abrasions or rash Neurologic Neurologic: Reports headache(s); Denies weakness Psychiatric Psychiatric: Denies anxiety or depression Allergic/Immunologic Allergic/Immunologic ED: Denies lip swelling or urticaria EXAM Physical Exam Const Vital Signs: 02/15/24 21:06 02/16/24 00:28 Temperature 97.6 F L Temperature Source Temporal Pulse Rate 87 90 Respiratory Rate 16 16 Blood Pressure 100/61 Blood Pressure Mean 74 Pulse Ox 97 Oxygen Delivery Method Room Air Positive well nourished and well developed General Appearance ED: well developed HEENT Reports TM's clear and moist mucous membranes HEENT Narrative: Posterior pharynx exam unremarkable. Tympanic Membrane ED: Yes TM's clear Eyes EOMs intact bilaterally Chest Wall inspection of chest normal and palpation of chest normal Resp normal respiratory effort Resp Narrative: Expiratory wheezes right greater than left. Cardio regular rate and regular rhythm GI non-tender Palpation: soft Extremity normal to inspection Neuro oriented x3 and no sensory deficits noted Motor Exam: strength 5/5 throughout Psych mental status grossly normal Skin no rashes or lesions noted MDM MDM MDM Narrative Medical decision making narrative: Patient had a portable chest x-ray obtained from triage protocol. Per my interpretation chronic changes are noted with no evidence of focal infiltrate. Radiology interpretation is reviewed. Swab for COVID, influenza, and RSV was also obtained before my evaluation and this returns negative. At the time of my exam I have ordered Robitussin and Tylenol for her along with prednisone and a DuoNeb treatment. On repeat examination patient does have improved air movement bilaterally. She will be given prescription for Levaquin which she has tolerated well (patient has multiple antibiotic allergies). She will also be given a prescription for prednisone. Return instructions given. Lab Data Attestation: I reviewed the patient's lab results. Radiography Diagnostic Testing: Clinical Impression(s) from Imaging Studies Chest X-Ray 02/15/24 21:21 IMPRESSION: Asymmetric interstitial thickening in the right lower lobe and left upper lobe of uncertain chronicity.. Cannot exclude acute inflammatory changes. Recommend correlation with prior studies when available Electronically Signed: Matthias Alberts MD at 21:41 EDT , Discharge Plan Triage Chief Complaint: Cough ED Provider: Dannielle Osman Dx/Rx/DC Orders Clinical Impression: Viral URI with cough, COPD exacerbation Instructions: ED COPD Flare, ED URI, Viral W/ Wheezing (Adult) Prescriptions: New prednisone 20 mg tablet 40 mg PO DAILY Qty: 8 0RF levofloxacin 750 mg tablet 750 mg PO DAILY 4 Days Qty: 4 0RF No Action promethazine 25 mg tablet 1 tab PO PRN PRN (Reason: Nausea) 30 Days Qty: 90 dcoypodgtb-gtszczmepaqbn-bcmb 50-325-40 mg tablet 1 tab PO PRN PRN (Reason: Migraine Symptoms) 30 Days Qty: 90 cyclobenzaprine 10 mg tablet 20 mg PO Q6H PRN (Reason: MUSCLE SPASMS) pantoprazole 40 mg tablet,delayed release (DR/EC) 40 mg PO BID furosemide 20 mg tablet 20 mg PO DAILY albuterol sulfate 2.5 mg /3 mL (0.083 %) solution for nebulization 2.5 mg inhalation Q4HWA.RT Qty: 180 6RF albuterol sulfate 90 mcg/actuation HFA aerosol inhaler 2 puff inhalation Q4H PRN PRN (Reason: Wheezing) Qty: 1 11RF cholecalciferol (vitamin D3) 1,250 mcg (50,000 unit) capsule 50,000 unit PO QWEEK Patient Comments: TAKE 1 CAPSULE BY MOUTH ONCE WEEKLY potassium chloride 20 mEq tablet extended release 20 meq PO DAILY Patient Comments: TAKE 1 TABLET BY MOUTH EVERY DAY lamotrigine 200 MG tablet,disintegrating 200 mg PO BID aspirin 81 MG tablet,chewable 81 mg PO DAILY 0RF fluoxetine 20 mg capsule 40 mg PO BID diazepam 5 mg tablet 5 mg PO TID ezetimibe 10 mg tablet 10 mg PO DAILY levothyroxine 125 mcg tablet 125 mcg PO DAILY Patient Comments: TAKE 1 TABLET BY MOUTH EVERY DAY IN THE MORNING ON EMPTY STOMACH nystatin 100,000 unit/mL suspension 5 ml mucous membrane TID PRN (Reason: thrush) Rx Instructions: swish and swallow 5 cc three times per day for 10 days ibuprofen 600 mg tablet 600 mg PO TID PRN (Reason: pain) Qty: 42 0RF atenolol 25 mg tablet See Rx Instructions .ROUTE .COMPLEX Qty: 90 4RF Dose Instruction: TAKE 1 TABLET BY MOUTH EVERY DAY Rx Instructions: TAKE 1 TABLET BY MOUTH EVERY DAY fluticasone propionate 50 mcg/actuation spray,suspension 2 spray INTRANASAL DAILY Qty: 16 11RF Primary Care Provider: Sofy Richter Referrals: Sofy Richter DO [Primary Care Provider] - 1-2 Weeks Disposition Disposition: Home, Self Care
[2024-02-16] MEDS: Acetaminophen 500 MG Tablet 1000 MG PO (00:23)
[2024-02-16] MEDS: predniSONE 20 MG Tablet 40 MG PO (00:23)
[2024-02-16] MEDS: Ipratropium/Albuterol Sulfate 3 ML AMPUL.NEB INHALATION (00:24)
[2024-02-16] MEDS: guaiFENesin 10 ML UDC (200MG/10ML) PO (00:24)
[2024-02-16 00:28] VITALS: PULSE 90; RESP 16
[2024-02-16 01:06] VITALS: BP 100/58; PULSE 65; RESP 18; O2SAT 96
[2024-02-16] MEDS: levoFLOXacin 750 MG Tablet PO (01:30)
[2024-02-16 01:34] VITALS: BP 103/57; PULSE 64; RESP 18; TEMP 35.9; O2SAT 93
== END 2024-02-16 01:35 | disposition home or self-care (01) ==
PROVIDERS: Emergency Provider Emergency Medicine; PCP Family Medicine; Visit Provider Emergency Medicine
DX: J06.9 Acute upper respiratory infection, unspecified (principal); I50.31 Acute diastolic (congestive) heart failure; J44.1 Chronic obstructive pulmonary disease with (acute) exacerbation; Z87.891 Personal history of nicotine dependence; I25.10 Atherosclerotic heart disease of native coronary artery without angina pectoris; K21.9 Gastro-esophageal reflux disease without esophagitis; E03.9 Hypothyroidism, unspecified; Z79.890 Hormone replacement therapy; R51.9 Headache, unspecified
CPT/HCPCS: 71045; 87631; 94640; 94760; 99282

== ENCOUNTER 2024-02-23 14:45 | Emergency (ER) | payer MEDICAID, SELFPAY ==
[2024-02-23 14:45] VITALS: BP 105/68; PULSE 78; RESP 16; TEMP 36.9; O2SAT 98; BMI 27.6
--- NOTE | 2024-02-23 15:21 | ED.VIS.FALL ---
HPI <STANTON Hernandez - Last Filed: 02/23/24 16:22> HPI - Fall History of Present Illness Chief Complaint: Fall Narrative Narrative: 59-year-old female was on her front porch leaning against the porch railing when it broke and she fell about 4 feet down landing on her front on the mulch. No head injury or LOC. She states she did not want to try to get up and was brought in by the paramedics. She complains of right shoulder pain and states now that the adrenaline is wearing off her ribs feel sore. She has no shortness of breath. No abdominal pain, nausea or vomiting. She did not strike her head and is not on blood thinners. [facility] <STANTON Hernandez - Last Filed: 02/23/24 16:22> [facility] Medical History Acute diastolic (congestive) heart failure (04/18/18) Acute on chronic respiratory failure with hypoxia and hypercapnia Arthritis Asthma Asthma-COPD overlap syndrome Atherosclerosis of coronary artery of [place] heart without angina pectoris Bipolar disorder Bronchitis Chronic back pain Chronic neck and back pain COPD (chronic obstructive pulmonary disease) Cough COVID-19 (09/2021) Depression Difficulty balancing Diverticula of colon Encounter for screening for COVID-19 GERD (gastroesophageal reflux disease) History of non-ST elevation myocardial infarction (NSTEMI) (04/16/18) History of sepsis Hypersomnia, unspecified Hypoglycemia Hypokalemia Hypothyroidism Limb weakness Myocardial infarct Obesity Paroxysmal supraventricular tachycardia Severe headache Sore throat Stomach ulcer TMJ (temporomandibular joint syndrome) Urinary incontinence Home Medications ?Medication ?Instructions ?Recorded ?Last Taken ?Type lamotrigine 200 mg disintegrating 200 mg PO BID seizure 04/15/18 01/28/22 History tablet 0800 aspirin 81 mg chewable tablet 81 mg PO DAILY 04/21/18 Unknown Rx soduiuwcoi-wzceojgvrdyal-ptrybwrn 1 tab PO PRN PRN Migraine Symptoms 03/04/19 Unknown History 50 mg-325 mg-40 mg tablet 30 days #90 tabs promethazine 25 mg tablet 1 tab PO PRN PRN Nausea 30 days 03/04/19 Unknown History #90 tabs ibuprofen 600 mg tablet 600 mg PO TID PRN pain #42 tabs 09/28/20 Unknown Rx cyclobenzaprine 10 mg tablet 20 mg PO Q6H PRN MUSCLE SPASMS 02/03/21 Unknown History pantoprazole 40 mg tablet,delayed 40 mg PO BID 02/03/21 Unknown History release ezetimibe 10 mg tablet 10 mg PO DAILY cholesterol 10/06/21 10/05/21 09:00 History levothyroxine 125 mcg tablet 125 mcg PO DAILY 01/28/22 Unknown History nystatin 100,000 unit/mL oral 5 ml mucous membrane TID PRN thrush 01/28/22 Unknown History suspension fluoxetine 20 mg capsule 40 mg PO BID 04/18/22 Unknown History diazepam 5 mg tablet 5 mg PO TID Anxiety 01/29/23 Unknown History atenolol 25 mg tablet See Rx Instructions .Route 02/23/23 Unknown Rx .COMPLEX #90 TABLETS cholecalciferol (vitamin D3) 1,250 50,000 unit PO QWEEK 07/27/23 Unknown History mcg (50,000 unit) capsule furosemide 20 mg tablet 20 mg PO DAILY 07/27/23 Unknown History potassium chloride 20 mEq 20 meq PO DAILY 07/27/23 Unknown History tablet,extended release albuterol sulfate 2.5 mg/3 mL 2.5 mg (3 mL) inhalation Q4HWA.RT 07/31/23 Unknown Rx (0.083 %) solution for nebulization #180 mL albuterol sulfate 90 mcg/actuation 2 puff inhalation Q4H PRN PRN 07/31/23 Unknown Rx aerosol inhaler Wheezing ##1 fluticasone propionate 50 2 spray intranasal DAILY #16 grams 10/22/23 Unknown Rx mcg/actuation nasal spray,suspension levofloxacin 750 mg tablet 750 mg PO DAILY 4 days #4 tabs 02/16/24 Unknown Rx prednisone 20 mg tablet 40 mg (2 x 20 mg) PO DAILY #8 tabs 02/16/24 Unknown Rx ibuprofen 200 mg tablet (Advil) 600 mg (3 x 200 mg) PO Q6H PRN 02/23/24 Unknown Rx pain 5 days #60 tabs Allergy/AdvReac Type Severity Reaction Status Date / Time amoxicillin Allergy Severe Shortness Verified 02/23/24 14:48 of breath azithromycin Allergy Severe Shortness Verified 02/23/24 14:48 of breath clindamycin Allergy Severe Shortness Verified 02/23/24 14:48 of breath doxycycline Allergy Severe Shortness Verified 02/23/24 14:48 of breath erythromycin lactobionate Allergy Severe Shortness Verified 02/23/24 14:48 (From Erythrocin) of breath Penicillins Allergy Severe Shortness Verified 02/23/24 14:48 of breath Sulfa (Sulfonamide Allergy Severe Shortness Verified 02/23/24 14:48 Antibiotics) of breath sulfamethoxazole (From Allergy Severe Shortness Verified 02/23/24 14:48 Bactrim) of breath trimethoprim (From Bactrim) Allergy Severe Shortness Verified 02/23/24 14:48 of breath Antihistamines - Alkylamine Allergy doesn't Verified 02/23/24 14:48 for days Antihistamines - Ethanolamine Allergy NEEDS Verified 02/23/24 14:48 FOLLOW-UP Antihistamines - Allergy NEEDS Verified 02/23/24 14:48 Ethylenediamine FOLLOW-UP Antihistamines - Piperidine Allergy NEEDS Verified 02/23/24 14:48 FOLLOW-UP meloxicam (From Mobic) Allergy Chest Verified 02/23/24 14:48 tightness tramadol Allergy Unknown Verified 02/23/24 14:48 codeine (From AdvReac Nausea/Vom/ Verified 02/23/24 14:48 Tylenol-Codeine #3) Diarrhea gabapentin AdvReac Other Verified 02/23/24 14:48 terbutaline (From Brethine) AdvReac Other Verified 02/23/24 14:48 Family History Mother Hypertension Pulmonary embolism Psychiatric care Father Lung cancer Grandmother Breast cancer Sister Asthma Seizures Psychiatric care Depression Son Depression Psychiatric care ADHD Daughter Depression Psychiatric care Bipolar 1 disorder Surgical History History of appendectomy History of section History of cholecystectomy History of dilatation and curettage History of endometrial ablation History of left heart catheterization (04/18/18) History of left oophorectomy hx of throat biopsy Social History household members: children Smoking Status: Former smoker Tobacco: How many years used: 40 how long ago did patient quit smokin, 1.5ppd second hand exposure: Yes substance use type: does not use ROS <Sofy Glauthier, PA - Last Filed: 02/23/24 16:22> ROS ED ROS Narrative Respiratory: Negative for shortness of breath. GI: Negative for abdominal pain, nausea, vomiting. Neuro: Negative for motor/sensory dysfunction. Skin: Negative for wound. Musc: Positive for right shoulder pain. EXAM <STANTON Hernandez - Last Filed: 02/23/24 16:22> Physical Exam Narrative Exam Narrative: CONST: Patient sitting in no acute distress. EYES: Normal inspection. HEAD: Normocephalic/atraumatic. NECK: Normal inspection. No midline spinal tenderness, no step off or crepitus. RESP: No respiratory distress, CTAB. Tenderness over lower sternum and ribs, no deformity or crepitus, no bruising. CVS: Regular rate and rhythm, no murmur, no gallop. ABD: Soft and nontender, no guarding or rebound, nondistended. Back: Normal inspection, no midline enderness. SKIN: Color normal, no rash, warm, dry, intact. EXTREMITIES: Holding right arm abducted against her body. Tender over right shoulder and proximal radius. No deformity or crepitus. Limited shoulder range of motion secondary to pain. No tenderness of forearm wrist or hand. Left upper extremity nontender. 2+ radial pulses. Normal inspection of lower extremities, no shortening or rotation, no bony tenderness, 2+ DP pulses. NEURO: Alert and answering questions appropriately. PSYCH: Normal affect. Const Vital Signs: 02/23/24 14:45 02/23/24 14:49 02/23/24 16:32 Temperature 98.5 F 97.8 F Temperature Source Oral Pulse Rate 78 78 Respiratory Rate 16 16 Respiratory Effort Normal Non-Labored Respiratory Depth Normal Respiratory Pattern Normal Blood Pressure 105/68 110/68 Blood Pressure Mean 80 82 Pulse Ox 98 99 Oxygen Delivery Method Room Air Room Air <Dr. Moris Delatorre DO - Last Filed: 02/23/24 16:46> Physical Exam Const Vital Signs: 02/23/24 14:45 02/23/24 14:49 02/23/24 16:32 Temperature 98.5 F 97.8 F Temperature Source Oral Pulse Rate 78 78 Respiratory Rate 16 16 Respiratory Effort Normal Non-Labored Respiratory Depth Normal Respiratory Pattern Normal Blood Pressure 105/68 110/68 Blood Pressure Mean 80 82 Pulse Ox 98 99 Oxygen Delivery Method Room Air Room Air [facility] <STANTON Hernandez - Last Filed: 02/23/24 16:22> [facility] Narrative Medical decision making narrative: History gathered from: Patient and son Differential: Extremity contusions versus fracture Patient had mechanical fall off her porch when the railing broke apart 4 feet landing on her front and right upper extremity. No head injury or LOC. No blood thinners. Awake alert, GCS 15, stable vital signs. She has no external signs of injury. Tender over the right shoulder and elbow as well as anterior lower ribs. Normal heart and lung sounds. Abdomen soft and nontender. Pelvis stable with no reproducible tenderness of the lower extremities but she reports her hips feel similar. All x-rays obtained are negative for traumatic injuries. She was treated with Motrin and requested a prescription of this for home. I also recommended ice and Tylenol as needed and she was discharged in stable condition. Radiography Diagnostic Testing: Clinical Impression(s) from Imaging Studies Chest X-Ray 02/23/24 15:50 IMPRESSION: No radiographic evidence of acute cardiopulmonary disease. Electronically Signed: Quirino Iqbal MD at 16:12 EDT , Elbow X-Ray 02/23/24 15:50 IMPRESSION: No evidence of acute fracture or dislocation. Electronically Signed: Quirino Iqbal MD at 16:11 EDT , Pelvis X-Ray 02/23/24 15:50 IMPRESSION: No evidence of displaced pelvic or hip fracture. Electronically Signed: Quirino Iqbal MD at 16:10 EDT , Shoulder X-Ray 02/23/24 15:50 IMPRESSION: Hydroxyapatite deposition disease (calcific tendinitis) (. Electronically Signed: Gustavo Goins MD at 16:13 EDT , ED attending interpretation of 2 view chest x-ray shows no evidence of displaced rib fracture or pneumothorax. ED attending interpretation of right shoulder and right elbow x-ray showed no acute fracture or dislocation. ED attending interpretation of the pelvis shows no evidence of pelvic or hip fracture. <Dr. Moris Delatorre, DO - Last Filed: 02/23/24 16:46> [facility] MDM Narrative Medical decision making narrative: History gathered from: Patient and son Differential: Extremity contusions versus fracture Patient had mechanical fall off her porch when the railing broke apart 4 feet landing on her front and right upper extremity. No head injury or LOC. No blood thinners. Awake alert, GCS 15, stable vital signs. She has no external signs of injury. Tender over the right shoulder and elbow as well as anterior lower ribs. Normal heart and lung sounds. Abdomen soft and nontender. Pelvis stable with no reproducible tenderness of the lower extremities but she reports her hips feel similar. All x-rays obtained are negative for traumatic injuries. She was treated with Motrin and requested a prescription of this for home. I also recommended ice and Tylenol as needed and she was discharged in stable condition. I have personally performed a face to face assessment of the patient and have reviewed the IGLESIA Note. I performed a substantive portion of the visit including all aspects of the following. My ramon findings include: History is 59-year-old female was on her porch when the metal railing broke and she fell to the bulged area where she keeps her roses. She notes multiple areas of pain including the chest elbow and shoulder. No loss of consciousness. She denies any headache or neck or back pain. She states that she did not wish to get up she was concerned she may have broken something. Exam is afebrile vital signs stable. No palpable deformity or crepitance. No deformities noted of the right arm. She is able to move it though she notes discomfort. Medical Decison Making patient appears neurologically intact without any obvious head injury. My interpretation of the plain films of the right elbow right shoulder and chest is no acute fracture. Patient received pain medication. She will be discharged home with the understanding that she should return if she has worsening or have concerns. She understands she will most likely hurt more tomorrow. History & Record Review Discussion w/independent historian: EMS personnel, Patient and Family Radiography Diagnostic Testing: Clinical Impression(s) from Imaging Studies Chest X-Ray 02/23/24 15:50 IMPRESSION: No radiographic evidence of acute cardiopulmonary disease. Electronically Signed: Quirino Iqbal MD at 16:12 EDT , Elbow X-Ray 02/23/24 15:50 IMPRESSION: No evidence of acute fracture or dislocation. Electronically Signed: Quirino Iqbal MD at 16:11 EDT , Pelvis X-Ray 02/23/24 15:50 IMPRESSION: No evidence of displaced pelvic or hip fracture. Electronically Signed: Quirino Iqbal MD at 16:10 EDT , Shoulder X-Ray 02/23/24 15:50 IMPRESSION: Hydroxyapatite deposition disease (calcific tendinitis) (. Electronically Signed: Gustavo Goins MD at 16:13 EDT , Discharge Plan Triage Chief Complaint: Fall ED Midlevel Provider: Sofy Tijerina ED Provider: Moris Delatorre Dx/Rx/DC Orders Clinical Impression: Fall, Contusion of right shoulder, Contusion of right elbow, Contusion of ribs Instructions: Bruises (Contusions) Prescriptions: New ibuprofen [Advil] 200 mg tablet 600 mg PO Q6H PRN (Reason: pain) 5 Days Qty: 60 0RF No Action promethazine 25 mg tablet 1 tab PO PRN PRN (Reason: Nausea) 30 Days Qty: 90 fmreeinmpg-lslhqoicxslcx-xhmu 50-325-40 mg tablet 1 tab PO PRN PRN (Reason: Migraine Symptoms) 30 Days Qty: 90 cyclobenzaprine 10 mg tablet 20 mg PO Q6H PRN (Reason: MUSCLE SPASMS) pantoprazole 40 mg tablet,delayed release (DR/EC) 40 mg PO BID furosemide 20 mg tablet 20 mg PO DAILY albuterol sulfate 2.5 mg /3 mL (0.083 %) solution for nebulization 2.5 mg inhalation Q4HWA.RT Qty: 180 6RF albuterol sulfate 90 mcg/actuation HFA aerosol inhaler 2 puff inhalation Q4H PRN PRN (Reason: Wheezing) Qty: 1 11RF cholecalciferol (vitamin D3) 1,250 mcg (50,000 unit) capsule 50,000 unit PO QWEEK Patient Comments: TAKE 1 CAPSULE BY MOUTH ONCE WEEKLY potassium chloride 20 mEq tablet extended release 20 meq PO DAILY Patient Comments: TAKE 1 TABLET BY MOUTH EVERY DAY lamotrigine 200 MG tablet,disintegrating 200 mg PO BID aspirin 81 MG tablet,chewable 81 mg PO DAILY 0RF fluoxetine 20 mg capsule 40 mg PO BID diazepam 5 mg tablet 5 mg PO TID ezetimibe 10 mg tablet 10 mg PO DAILY levothyroxine 125 mcg tablet 125 mcg PO DAILY Patient Comments: TAKE 1 TABLET BY MOUTH EVERY DAY IN THE MORNING ON EMPTY STOMACH nystatin 100,000 unit/mL suspension 5 ml mucous membrane TID PRN (Reason: thrush) Rx Instructions: swish and swallow 5 cc three times per day for 10 days prednisone 20 mg tablet 40 mg PO DAILY Qty: 8 0RF levofloxacin 750 mg tablet 750 mg PO DAILY 4 Days Qty: 4 0RF ibuprofen 600 mg tablet 600 mg PO TID PRN (Reason: pain) Qty: 42 0RF atenolol 25 mg tablet See Rx Instructions .ROUTE .COMPLEX Qty: 90 4RF Dose Instruction: TAKE 1 TABLET BY MOUTH EVERY DAY Rx Instructions: TAKE 1 TABLET BY MOUTH EVERY DAY fluticasone propionate 50 mcg/actuation spray,suspension 2 spray INTRANASAL DAILY Qty: 16 11RF Primary Care Provider: Sofy Richter Referrals: Sofy Richter, [Primary Care Provider] - Activity Restrictions/Additional Instructions: Ice and you can alternate Tylenol and Advil every 3 hours as needed. Print Language: Nepalese Disposition Disposition: Home, Self Care Discharge Date/Time: 02/23/24 16:36
[2024-02-23] MEDS: Ibuprofen 600 MG Tablet PO (15:25)
--- NOTE | 2024-02-23 15:50 | RAD_ITS ---
INDICATION: pain EXAMINATION/TECHNIQUE: X-RAY - XR Pelvis 1 or 2 Views COMPARISON: No relevant prior comparison study available FINDINGS: PELVIC BONES: No displaced fracture, destructive or sclerotic lesions. Note that overlapping bowel shadows may however obscure fine detail. Sacroiliac joints are unremarkable. No widening of the pubic symphysis. HIPS: The articular structures are unremarkable. No displaced fracture seen in this frontal view. SOFT TISSUES: No soft tissue swelling or gas. RAD/Pelvis 1 or 2 Views IMPRESSION: No evidence of displaced pelvic or hip fracture. Electronically Signed: Quirino Iqbal MD at 16:10 EDT ,
--- NOTE | 2024-02-23 15:50 | RAD_ITS ---
STUDY: X-RAY - RIGHT SHOULDER REASON FOR EXAM: Female, 59 years old. pain TECHNIQUE: 4 view(s) of the shoulder. COMPARISON: None. FINDINGS: Normal glenohumeral articulation. Normal acromioclavicular joint. Normal acromion. Normal humeral head and visualized proximal humerus. There is periarticular soft tissue calcification consistent with a calcific tendinitis. Normal visualized pulmonary apex. RAD/Shoulder min 2 Views IMPRESSION: Hydroxyapatite deposition disease (calcific tendinitis) (. Electronically Signed: Gustavo Goins MD at 16:13 EDT ,
--- NOTE | 2024-02-23 15:50 | RAD_ITS ---
INDICATION: pain EXAMINATION/TECHNIQUE: X-RAY - RIGHT XR Elbow Min 3 Views COMPARISON: No relevant prior comparison study available FINDINGS: SOFT TISSUES: No soft tissue swelling or gas. No radiopaque foreign body. BONES/JOINTS: There is no displacement of the anterior or posterior fat pads. No acute fracture or subluxation. Normal alignment. Preservation of the joint space. No sclerotic or destructive changes observed. RAD/Elbow min 3 Views IMPRESSION: No evidence of acute fracture or dislocation. Electronically Signed: Quirino Iqbal MD at 16:11 EDT ,
--- NOTE | 2024-02-23 15:50 | RAD_ITS ---
INDICATION: rib pain EXAMINATION/TECHNIQUE: X-RAY - XR Chest 2 Views COMPARISON: Prior study dated: 02/15/2024 FINDINGS: LINES/DEVICES: None. LUNGS: No consolidation, edema or effusion. No pneumothorax. MEDIASTINUM AND CARDIOVASCULAR STRUCTURES: Cardiac silhouette not enlarged. Central airways and mediastinal contour are unremarkable. BONES AND SOFT TISSUES: Unremarkable. RAD/Chest PA and Lateral IMPRESSION: No radiographic evidence of acute cardiopulmonary disease. Electronically Signed: Quirino Iqbal MD at 16:12 EDT ,
[2024-02-23 16:32] VITALS: BP 110/68; PULSE 78; RESP 16; TEMP 36.6; O2SAT 99
== END 2024-02-23 16:36 | disposition home or self-care (01) ==
PROVIDERS: Emergency Provider Emergency Medicine; PCP Family Medicine; Visit Provider Emergency Medicine
DX: S40.011A Contusion of right shoulder, initial encounter (principal); I50.32 Chronic diastolic (congestive) heart failure; J44.9 Chronic obstructive pulmonary disease, unspecified; Z87.891 Personal history of nicotine dependence; S50.01XA Contusion of right elbow, initial encounter; S20.219A Contusion of unspecified front wall of thorax, initial encounter; W17.89XA Other fall from one level to another, initial encounter; K21.9 Gastro-esophageal reflux disease without esophagitis; Z79.890 Hormone replacement therapy; M75.31 Calcific tendinitis of right shoulder
CPT/HCPCS: 71046; 72170; 73030; 73080; 99282

== ENCOUNTER → 2024-05-14 | Outpatient (CLI) | payer MEDICAID, SELFPAY ==
--- NOTE | 2024-05-14 13:10 | CT_ITS ---
STUDY: CT ABDOMEN AND PELVIS WITH CONTRAST REASON FOR EXAM: Female, 59 years old. LLQ PAIN RADIATION DOSAGE (If Supplied By Facility): CTDIvol = ( 12.34 ) mGy, DLP = ( 579.38 ) mGycm TECHNIQUE: Transaxial images were obtained from the dome of the diaphragm to the symphysis pubis with oral contrast. Oral and amp; IV Gastrografin and amp; 100mL Isovue-300 was administered. Sagittal and coronal images were reconstructed. Individualized dose optimization techniques were used for this CT. COMPARISON: Comparison made with prior study June 29, 2023. FINDINGS: The visualized lung bases are unremarkable. Coronary artery calcification. Mild degree of central intrahepatic biliary ducts. There are surgical clips in the gallbladder fossa consistent with a prior cholecystectomy. Normal spleen. Normal pancreas. Normal bilateral adrenal glands. Normal right kidney. Normal left kidney. Normal visualized stomach. Normal small intestine. There is diverticulosis, with thickening of the colon wall, and pericolonic inflammation changes consistent with acute diverticulitis. There are surgical clips in the region of the appendix consistent with a prior appendectomy. There is atherosclerotic calcification of the abdominal aorta, without a demonstrated aneurysm. Normal inferior vena cava. Normal retroperitoneum. Normal urinary bladder. Normal abdominal wall. Loss of the normal lumbar lordosis. CT/Abdomen/Pelvis WITH Contrast IMPRESSION: Status post cholecystectomy with mild degree of the central intrahepatic biliary ductal dilatation. Mild degree of sigmoid diverticulitis. Electronically Signed: Crow Gibson MD at 14:22 EDT ,
== END | disposition home or self-care (01) ==
LOC: CT 11:05
PROVIDERS: PCP Family Medicine; Referring Provider Family Medicine; Visit Provider Family Medicine
DX: R10.32 Left lower quadrant pain (principal); K57.92 Diverticulitis of intestine, part unspecified, without perforation or abscess without bleeding
CPT/HCPCS: 74177; Q9967

== ENCOUNTER → 2024-06-12 | Outpatient (CLI) | payer MEDICAID, SELFPAY ==
[2024-06-12 17:38] LABS: Basophil# 0.04 X10^3/uL; Basophil% 0.7 % (0-1); Eosinophil# 0.08 X10^3/uL; Eosinophils% 1.4 % (0-5); Hematocrit 38.3 % (37-47); Hemoglobin 12.4 g/dL (12.0-15.0); Lymphocyte % 35.5 % (19-41); Mean Corp Hgb Conc 32.4 g/dL (32-36); Mean Corpuscular Hgb 29.9 pg (27.0-32.0); Mean Corpuscular Volume 92.3 fL (81-99); Mean Platelet Vol. 11.5 fl (6.2-12.0); Monocyte# 0.49 X10^3/uL; Monocyte% 8.7 % (0-10); NRBC Flagged by Analyzer 0 % (0-5); Neutrophil % 53.3 % (47-70); Platelet Count 221 K/mm3 (150-450); RBC Distribution Width SD 40.4 fl (35.1-43.9); Red Blood Count 4.15 M/mm3 (4.2-5.4); White Blood Count 5.6 K/mm3 (4.4-11.0)
[2024-06-12 19:10] LABS: ALB/GLOB Ratio 0.8 RATIO (0.9-2.4); AST(SGOT) 37 U/L (15-37); Alanine Aminotransfer ALT/SGPT 40 U/L (13-56); Albumin, Serum 3.6 g/dL (3.2-5.0); Alkaline Phosphatase 130 U/L (45-117); Anion Gap 11 (5-15); BUN 15 mg/dL (7-18); BUN/Creat Ratio 15.2 RATIO (10-20); Calcium,Total 9.1 mg/dL (8.5-10.1); Chloride 98 mmol/L (98-107); Creatinine, Serum 0.99 mg/dL (0.55-1.02); EST Glomerular Filtration Rate 61 mL/min (>60); Est Glom Filt Rate - Afr Amer 74 mL/min (>60); Free T3 2.4 pg/mL (2.18-3.98); Globulin 4.4 g/dL (2.2-4.2); Glucose 97 mg/dL (74-106); Potassium 3.8 mmol/L (3.5-5.1); Sodium Level 137 mmol/L (136-145); Thyroid Stim Hormone (TSH) 0.839 uIU/mL (0.358-3.740)
== END | disposition home or self-care (01) ==
LOC: MTLAB 14:36
PROVIDERS: PCP Family Medicine; Referring Provider Family Medicine; Visit Provider Family Medicine
DX: E03.9 Hypothyroidism, unspecified (principal); D64.9 Anemia, unspecified; Z51.81 Encounter for therapeutic drug level monitoring
CPT/HCPCS: 36415; 80053; 84439; 84443; 84481; 85025

== ENCOUNTER → 2024-09-18 | Outpatient (CLI) | payer MEDICAID, SELFPAY | END | disposition home or self-care (01) | LOC: BFHLAB 16:38 | PROVIDERS: PCP Family Medicine; Visit Provider Family Medicine | DX: R30.0 Dysuria (principal) | CPT/HCPCS: 87077; 87086; 87088; 87186 ==

== ENCOUNTER → 2024-09-26 | Outpatient (CLI) | payer MEDICAID, SELFPAY ==
--- NOTE | 2024-09-26 15:49 | CT_ITS ---
EXAM: CT CHEST WITHOUT INTRAVENOUS CONTRAST CLINICAL INDICATION: smoker TECHNIQUE: Helically acquired images were obtained of the chest without intravenous contrast. This CT exam was performed using one or more of the following dose reduction techniques: automated exposure control, adjustment of the mA and/or kV according to patient size, and/or use of iterative reconstruction technique. RADIATION DOSE: CTDIvol = 3.02 mGy, DLP = 93.27 mGy-cm COMPARISON: CT chest 09/19/2023 FINDINGS: LUNGS AND PLEURAL SPACES: Moderate centrilobular emphysematous changes. No mass. No consolidation or edema. No pleural effusion or thickening. No pneumothorax. HEART: Coronary artery calcifications. Heart size is normal. No pericardial effusion. MEDIASTINUM: Unremarkable. No mediastinal or hilar adenopathy. Esophagus is unremarkable. No hiatal hernia. THYROID: Unremarkable. No thyroid lesions. BONES/JOINTS: Unremarkable. No suspicious lytic or blastic abnormality. SOFT TISSUES: Unremarkable. VASCULATURE: No dilation of the thoracic aorta. CT/Low Dose CT Lung Screening IMPRESSION: 1. No pulmonary nodules. ACR Lung CT Screening Reporting And Data System (Lung-RADS) score: 1S - Additional clinically significant or potentially clinically significant findings are described. Recommend continued annual screening with a low-dose CT (LDCT) in 12 months. 2. Moderate centrilobular emphysematous changes. 3. Coronary artery calcifications. Electronically Signed: Justin Oh MD at 3:10 [facility] ,
== END | disposition home or self-care (01) ==
LOC: CT 15:47
PROVIDERS: PCP Family Medicine; Referring Provider Nurse Practitioner Acute Care; Visit Provider Nurse Practitioner Acute Care
DX: F17.210 Nicotine dependence, cigarettes, uncomplicated (principal)
CPT/HCPCS: 71271

== ENCOUNTER 2024-10-03 08:36 | Day surgery (SDC) | payer MEDICAID, SELFPAY ==
--- NOTE | 2024-09-26 15:45 | PAT.ANE_ITS ---
Pre-Assessment Diagnosis/Proposed Procedure Planned Operative Procedure(s): COLONOSCOPY Anesthesia History Anesthesia History - miller apprentice: Anesthesia History - miller apprentice Hx Hospitalization No 09/26/24 15:09 Any Problems With Anesthesia Yes: N&V 09/26/24 15:09 Cholinesterase deficiency No 09/26/24 15:09 You/Your Family Experience No 09/26/24 15:09 fever (hyperthermia) with Relationship Recent Exposure to Contagious No 02/28/17 08:18 Disease Does patient have nerve No 09/26/24 15:09 stimulator Patient instructed to have device shut off --Does patient have Pacemaker or ICD? When Was Last Pacemaker Check QUESTION #4 FULL TEXT: You/Your Family Experience fever (hyperthermia) with Anesthesia Last Oral Intake Last Oral intake: Last Oral Intake NPO since Meds taken in AM with sips of water? Meds patient instructed to take am of surgery PONV PONV - miller apprentice: PONV - miller apprentice Female Yes 09/26/24 15:09 HX of Motion Sickness No 09/26/24 15:09 HX of N/V After Surgery No 09/26/24 15:09 Non-Smoker Yes 09/26/24 15:09 Duration of Surgery greater No 09/26/24 15:09 than 60 minutes Number of Risk Factors 2 09/26/24 15:09 PONV Score Moderate Risk 09/26/24 15:09 Height & Weight Height & Weight: Anesthesia: Height & Weight Height 5 ft 6 in 07/01/24 13:13 Respiratory Assessment Respiratory Assessment - miller apprentice: Respiratory Tract Infection Hx - miller apprentice Hx Respiratory Tract Infection No 09/26/24 15:09 STOP Sleep Apnea STOP Sleep Apnea - miller apprentice: STOP Sleep Apnea - miller apprentice Hx Hypertension No 09/26/24 15:09 Hx Sleep Apnea No 09/26/24 15:09 CPAP BIPAP Do you snore loudly (louder No 09/26/24 15:09 than talking or can be heard Do you often feel tired/ No 09/26/24 15:09 fatigued/ sleepy during daytime? Has anyone observed you stop No 09/26/24 15:09 breathing during sleep? STOP Results Negative 09/26/24 15:09 QUESTION #5 FULL TEXT : Do you snore loudly (louder than talking or can be heard through closed doors)? 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 Specify any problems Hx of Preganancy in last 3 N/A 09/26/24 15:09 Months Nurse Filling Out Transfusion NBUCHER 09/26/24 15:09 & Questions: Date: 09/26/24 09/26/24 15:09 Time: 15:09 09/26/24 15:09 Patient unable to answer at this time (ie. confused, unrespo /Reproduction History /Reproductive History - miller apprentice: /Reproductive Hx- miller apprentice Hx Now Gestational Age (in weeks): EDC: Hx Hx Para Hx Section SAB PFSH Medical History (Reviewed 08/27/24 @ 11:45 by Sarah Pat STORAGE FACILITY RENTAL CLERK, STORAGE FACILITY RENTAL CLERK-C) Wears dentures Wears glasses Post-menopausal Bipolar disorder Anxiety Thyroid disease Excessive bleeding Migraine headache Injury of head and neck Difficulty swallowing History of diverticulitis Gastric reflux Former smoker On home oxygen therapy History of pain when walking History of edema History of echocardiogram History of stress test Cardiology follow-up encounter History of irregular heartbeat Depression Myocardial infarct COVID-19 (09/2021) Encounter for screening for COVID-19 Sore throat Cough Obesity History of non-ST elevation myocardial infarction (NSTEMI) (04/16/18) Bronchitis Acute on chronic respiratory failure with hypoxia and hypercapnia Asthma-COPD overlap syndrome History of sepsis Chronic neck and back pain Limb weakness Difficulty balancing Asthma COPD (chronic obstructive pulmonary disease) Severe headache Stomach ulcer Arthritis Hypersomnia, unspecified Diverticula of colon Acute diastolic (congestive) heart failure (04/18/18) Atherosclerosis of coronary artery of [place] heart without angina pectoris Hypothyroidism GERD (gastroesophageal reflux disease) Paroxysmal supraventricular tachycardia Bipolar disorder Chronic back pain TMJ (temporomandibular joint syndrome) Urinary incontinence Hypokalemia Hypoglycemia Home Medications ?Medication ?Instructions ?Recorded ?Last Taken ?Type lamotrigine 200 mg disintegrating 200 mg PO BID BIPOLAR 04/15/18 01/28/22 History tablet 0800 aspirin 81 mg chewable tablet 81 mg PO DAILY 04/21/18 09/24/24 Rx [id number]-[id number] 1 tab PO PRN PRN Migraine Symptoms 03/04/19 Unknown History 50 mg-325 mg-40 mg tablet 30 days #90 tabs promethazine 25 mg tablet 1 tab PO PRN PRN Nausea 30 days 03/04/19 Unknown History #90 tabs pantoprazole 40 mg tablet,delayed 40 mg PO BID 02/03/21 Unknown History release ezetimibe 10 mg tablet 10 mg PO DAILY cholesterol 10/06/21 10/05/21 09:00 History levothyroxine 125 mcg tablet 125 mcg PO DAILY 01/28/22 Unknown History nystatin 100,000 unit/mL oral 5 ml mucous membrane TID PRN thrush 01/28/22 Unknown History suspension fluoxetine 20 mg capsule 40 mg PO BID 04/18/22 Unknown History diazepam 5 mg tablet 5 mg PO TID Anxiety 01/29/23 Unknown History atenolol 25 mg tablet See Rx Instructions .Route 02/23/23 Unknown Rx .COMPLEX #90 TABLETS cholecalciferol (vitamin D3) 1,250 50,000 unit PO QWEEK 07/27/23 Unknown History mcg (50,000 unit) capsule furosemide 20 mg tablet 20 mg PO DAILY 07/27/23 Unknown History potassium chloride 20 mEq 20 meq PO DAILY 07/27/23 Unknown History tablet,extended release sucralfate 100 mg/mL oral 10 ml PO .QID 06/25/24 Unknown History suspension albuterol sulfate 2.5 mg/3 mL 2.5 mg (3 mL) inhalation Q4HWA.RT 08/27/24 Unknown Rx (0.083 %) solution for nebulization #180 mL albuterol sulfate 90 mcg/actuation 2 puff inhalation Q4H PRN PRN 08/27/24 Unknown Rx aerosol inhaler Wheezing ##1 azelastine 137 mcg (0.1 %) nasal 2 spray intranasal QHS 08/27/24 Unknown History spray Allergy/AdvReac Type Severity Reaction Status Date / Time amoxicillin Allergy Severe Shortness Verified 09/26/24 15:06 of breath azithromycin Allergy Severe Shortness Verified 09/26/24 15:06 of breath clindamycin Allergy Severe Shortness Verified 09/26/24 15:06 of breath doxycycline Allergy Severe Shortness Verified 09/26/24 15:06 of breath erythromycin lactobionate Allergy Severe Shortness Verified 09/26/24 15:06 (From Erythrocin) of breath Penicillins Allergy Severe Shortness Verified 09/26/24 15:06 of breath Sulfa (Sulfonamide Allergy Severe Shortness Verified 09/26/24 15:06 Antibiotics) of breath sulfamethoxazole (From Allergy Severe Shortness Verified 09/26/24 15:06 Bactrim) of breath trimethoprim (From Bactrim) Allergy Severe Shortness Verified 09/26/24 15:06 of breath Antihistamines - Alkylamine Allergy doesn't Verified 09/26/24 15:06 for days Antihistamines - Ethanolamine Allergy NEEDS Verified 09/26/24 15:06 FOLLOW-UP Antihistamines - Allergy NEEDS Verified 09/26/24 15:06 Ethylenediamine FOLLOW-UP Antihistamines - Piperidine Allergy NEEDS Verified 09/26/24 15:06 FOLLOW-UP meloxicam (From Mobic) Allergy Chest Verified 09/26/24 15:06 tightness tramadol Allergy Unknown Verified 09/26/24 15:06 codeine (From AdvReac Nausea/Vom/ Verified 09/26/24 15:06 Tylenol-Codeine #3) Diarrhea gabapentin AdvReac Other Verified 09/26/24 15:06 terbutaline (From Brethine) AdvReac Other Verified 09/26/24 15:06 Family History (Reviewed 08/27/24 @ 11:45 by Sarah Pat STORAGE FACILITY RENTAL CLERK, STORAGE FACILITY RENTAL CLERK-C) Mother Hypertension Pulmonary embolism Psychiatric care Father Lung cancer Grandmother Breast cancer Sister Asthma Seizures Psychiatric care Depression Son Depression Psychiatric care ADHD Daughter Depression Psychiatric care Bipolar 1 disorder Surgical History (Reviewed 08/27/24 @ 11:45 by Sarah Pat STORAGE FACILITY RENTAL CLERK, STORAGE FACILITY RENTAL CLERK-C) Hx of prior ablation treatment Hx of colonoscopy History of endometrial ablation hx of throat biopsy History of left heart catheterization (04/18/18) History of cholecystectomy History of appendectomy History of dilatation and curettage History of left oophorectomy History of section Social History (Reviewed 08/27/24 @ 11:45 by Sarah Pat STORAGE FACILITY RENTAL CLERK, STORAGE FACILITY RENTAL CLERK-C) household members: children Smoking Status: Former smoker Tobacco: How many years used: 40 how long ago did patient quit smokin, 1.5ppd second hand exposure: Yes substance use type: does not use Audit: Pertinent Findings Pertinent Findings EKG Perinent findings: January 28, 2022. Normal sinus rhythm. Echo (EF%) pertinent findings: April 13, 2020. Ejection fraction 65%. Consult pertinent findings: July 27, 2023. Angelique. #1 paroxysmal supraventricular tachycardia. This is by history currently patient is normal sinus rhythm. #2 atherosclerosis of coronary artery disease without angina. Patient has mild disease. Doing well at this time no changes to regimen at this time. Recommendation Anesthesia Recommendation Anesthesia recommendation: OPTIMIZED for anesthesia
[2024-10-03] VITALS (7 sets, daily range): BP systolic 105–127; BP diastolic 58–75; PULSE 74–90; RESP 16; TEMP 36.2–36.4; O2SAT 94–98; BMI 28.3
--- NOTE | 2024-10-03 08:40 | PRE.ANES_ITS ---
ASA Classification* ASA Classification ASA Classification: 3 Assessment & Plan Anesthesia* Anesthesia Assessment Anesthesia Assessment: Discussed sedation and/or anesthesia options, risks, benefits, and alternatives with patient/parents/legal guardian/POA. Questions invited. The patient/parents/legal guardian/POA seems to understand and agrees to proceed with anesthesia plan. Reviewed the physical assessment, medical history, allergy history and patient home medications list prior to surgery/procedure/anesthetic and documented any changes. Performed airway and anesthesia risk assessments. Anesthesia Type Anesthesia Type: MAC Anesthesia Focused Assessment* Airway Assessment Mouth opens: >3 cm Mallampati Score: II Focused Labs Anesthesia Preop lab: CBC WBC 5.6 K/mm3 (4.4-11.0) 06/12/24 14:37 RBC 4.15 M/mm3 (4.2-5.4) L 06/12/24 14:37 Hgb 12.4 g/dL (12.0-15.0) 06/12/24 14:37 Hct 38.3 % (37-47) 06/12/24 14:37 Plt Count 221 K/mm3 (150-450) 06/12/24 14:37 CHEMISTRY Potassium 3.8 mmol/L (3.5-5.1) 06/12/24 14:37 Sodium 137 mmol/L (136-145) 06/12/24 14:37 Magnesium 2.3 mg/dL (1.6-2.6) 04/19/18 06:12 Phosphorus 2.7 mg/dL (2.5-4.9) 04/19/18 06:12 BUN 15 mg/dL (7-18) 06/12/24 14:37 Creatinine 0.99 mg/dL (0.55-1.02) 06/12/24 14:37 Glucose 97 mg/dL (74-106) 06/12/24 14:37 POC Glucose 160 mg/dL (70-110) H 04/20/18 11:53 TSH 0.839 uIU/mL (0.358-3.740) 06/12/24 14:37 COAG PT 13.3 SECONDS (11.7-14.9) 10/06/21 09:03 Urine Test Negative Negative 04/18/18 08:00 Pre-Assessment Diagnosis/Proposed Procedure Planned Operative Procedure(s): COLONOSCOPY Anesthesia History Anesthesia History - hospital personnel director: Anesthesia History - hospital personnel director Hx Hospitalization No 09/26/24 15:09 Any Problems With Anesthesia Yes: N&V 09/26/24 15:09 Cholinesterase deficiency No 09/26/24 15:09 You/Your Family Experience No 09/26/24 15:09 fever (hyperthermia) with Relationship Recent Exposure to Contagious No 02/28/17 08:18 Disease Does patient have nerve No 09/26/24 15:09 stimulator Patient instructed to have device shut off --Does patient have Pacemaker or ICD? When Was Last Pacemaker Check QUESTION #4 FULL TEXT: You/Your Family Experience fever (hyperthermia) with Anesthesia Last Oral Intake Last Oral intake: Last Oral Intake NPO since Meds taken in AM with sips of water? Meds patient instructed to take am of surgery PONV PONV - hospital personnel director: PONV - hospital personnel director Female Yes 09/26/24 15:09 HX of Motion Sickness No 09/26/24 15:09 HX of N/V After Surgery No 09/26/24 15:09 Non-Smoker Yes 09/26/24 15:09 Duration of Surgery greater No 09/26/24 15:09 than 60 minutes Number of Risk Factors 2 09/26/24 15:09 PONV Score Moderate Risk 09/26/24 15:09 Height & Weight Height & Weight: Anesthesia: Height & Weight Height 5 ft 6 in 08/27/24 07:31 Respiratory Assessment Respiratory Assessment - hospital personnel director: Respiratory Tract Infection Hx - hospital personnel director Hx Respiratory Tract Infection No 09/26/24 15:09 STOP Sleep Apnea STOP Sleep Apnea - hospital personnel director: STOP Sleep Apnea - hospital personnel director Hx Hypertension No 09/26/24 15:09 Hx Sleep Apnea No 09/26/24 15:09 CPAP BIPAP Do you snore loudly (louder No 09/26/24 15:09 than talking or can be heard Do you often feel tired/ No 09/26/24 15:09 fatigued/ sleepy during daytime? Has anyone observed you stop No 09/26/24 15:09 breathing during sleep? STOP Results Negative 09/26/24 15:09 QUESTION #5 FULL TEXT : Do you snore loudly (louder than talking or can be heard through closed doors)? 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 Specify any problems Hx of Preganancy in last 3 N/A 09/26/24 15:09 Months Nurse Filling Out Transfusion NBUCHER 09/26/24 15:09 & Questions: Date: 09/26/24 09/26/24 15:09 Time: 15:09 09/26/24 15:09 Patient unable to answer at this time (ie. confused, unrespo /Reproduction History /Reproductive History - hospital personnel director: /Reproductive Hx- hospital personnel director Hx Now Gestational Age (in weeks): EDC: Hx Hx Para Hx Section SAB PFSH Medical History Wears dentures Wears glasses Post-menopausal Bipolar disorder Anxiety Thyroid disease Excessive bleeding Migraine headache Injury of head and neck Difficulty swallowing History of diverticulitis Gastric reflux Former smoker On home oxygen therapy History of pain when walking History of edema History of echocardiogram History of stress test Cardiology follow-up encounter History of irregular heartbeat Depression Myocardial infarct COVID-19 (09/2021) Encounter for screening for COVID-19 Sore throat Cough Obesity History of non-ST elevation myocardial infarction (NSTEMI) (04/16/18) Bronchitis Acute on chronic respiratory failure with hypoxia and hypercapnia Asthma-COPD overlap syndrome History of sepsis Chronic neck and back pain Limb weakness Difficulty balancing Asthma COPD (chronic obstructive pulmonary disease) Severe headache Stomach ulcer Arthritis Hypersomnia, unspecified Diverticula of colon Acute diastolic (congestive) heart failure (04/18/18) Atherosclerosis of coronary artery of [place] heart without angina pectoris Hypothyroidism GERD (gastroesophageal reflux disease) Paroxysmal supraventricular tachycardia Bipolar disorder Chronic back pain TMJ (temporomandibular joint syndrome) Urinary incontinence Hypokalemia Hypoglycemia Home Medications ?Medication ?Instructions ?Recorded ?Last Taken ?Type lamotrigine 200 mg disintegrating 200 mg PO BID BIPOLAR 04/15/18 01/28/22 History tablet 0800 aspirin 81 mg chewable tablet 81 mg PO DAILY 04/21/18 09/24/24 Rx niqpmcghwb-[id number]-[id number] 1 tab PO PRN PRN Migraine Symptoms 03/04/19 Unknown History 50 mg-325 mg-40 mg tablet 30 days #90 tabs promethazine 25 mg tablet 1 tab PO PRN PRN Nausea 30 days 03/04/19 Unknown History #90 tabs pantoprazole 40 mg tablet,delayed 40 mg PO BID 02/03/21 Unknown History release ezetimibe 10 mg tablet 10 mg PO DAILY cholesterol 10/06/21 10/05/21 09:00 History levothyroxine 125 mcg tablet 125 mcg PO DAILY 01/28/22 Unknown History nystatin 100,000 unit/mL oral 5 ml mucous membrane TID PRN thrush 01/28/22 Unknown History suspension fluoxetine 20 mg capsule 40 mg PO BID 04/18/22 Unknown History diazepam 5 mg tablet 5 mg PO TID Anxiety 01/29/23 Unknown History atenolol 25 mg tablet See Rx Instructions .Route 02/23/23 Unknown Rx .COMPLEX #90 TABLETS cholecalciferol (vitamin D3) 1,250 50,000 unit PO QWEEK 07/27/23 Unknown History mcg (50,000 unit) capsule furosemide 20 mg tablet 20 mg PO DAILY 07/27/23 Unknown History potassium chloride 20 mEq 20 meq PO DAILY 07/27/23 Unknown History tablet,extended release sucralfate 100 mg/mL oral 10 ml PO .QID 06/25/24 Unknown History suspension albuterol sulfate 2.5 mg/3 mL 2.5 mg (3 mL) inhalation Q4HWA.RT 08/27/24 Unknown Rx (0.083 %) solution for nebulization #180 mL albuterol sulfate 90 mcg/actuation 2 puff inhalation Q4H PRN PRN 08/27/24 Unknown Rx aerosol inhaler Wheezing ##1 azelastine 137 mcg (0.1 %) nasal 2 spray intranasal QHS 08/27/24 Unknown History spray Allergy/AdvReac Type Severity Reaction Status Date / Time amoxicillin Allergy Severe Shortness Verified 09/26/24 15:06 of breath azithromycin Allergy Severe Shortness Verified 09/26/24 15:06 of breath clindamycin Allergy Severe Shortness Verified 09/26/24 15:06 of breath doxycycline Allergy Severe Shortness Verified 09/26/24 15:06 of breath erythromycin lactobionate Allergy Severe Shortness Verified 09/26/24 15:06 (From Erythrocin) of breath Penicillins Allergy Severe Shortness Verified 09/26/24 15:06 of breath Sulfa (Sulfonamide Allergy Severe Shortness Verified 09/26/24 15:06 Antibiotics) of breath sulfamethoxazole (From Allergy Severe Shortness Verified 09/26/24 15:06 Bactrim) of breath trimethoprim (From Bactrim) Allergy Severe Shortness Verified 09/26/24 15:06 of breath Antihistamines - Alkylamine Allergy doesn't Verified 09/26/24 15:06 for days Antihistamines - Ethanolamine Allergy NEEDS Verified 09/26/24 15:06 FOLLOW-UP Antihistamines - Allergy NEEDS Verified 09/26/24 15:06 Ethylenediamine FOLLOW-UP Antihistamines - Piperidine Allergy NEEDS Verified 09/26/24 15:06 FOLLOW-UP meloxicam (From Mobic) Allergy Chest Verified 09/26/24 15:06 tightness tramadol Allergy Unknown Verified 09/26/24 15:06 codeine (From AdvReac Nausea/Vom/ Verified 09/26/24 15:06 Tylenol-Codeine #3) Diarrhea gabapentin AdvReac Other Verified 09/26/24 15:06 terbutaline (From Brethine) AdvReac Other Verified 09/26/24 15:06 Family History Mother Hypertension Pulmonary embolism Psychiatric care Father Lung cancer Grandmother Breast cancer Sister Asthma Seizures Psychiatric care Depression Son Depression Psychiatric care ADHD Daughter Depression Psychiatric care Bipolar 1 disorder Surgical History Hx of prior ablation treatment Hx of colonoscopy History of endometrial ablation hx of throat biopsy History of left heart catheterization (04/18/18) History of cholecystectomy History of appendectomy History of dilatation and curettage History of left oophorectomy History of section Social History household members: children Smoking Status: Former smoker Tobacco: How many years used: 40 how long ago did patient quit smokin, 1.5ppd second hand exposure: Yes substance use type: does not use Review of Systems (Anesthesia) ROS Narrative System reviewed and no additional complaints, except as documented.
--- NOTE | 2024-10-03 09:27 | HP.PCM_ITS ---
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 Is patient in pain?: No Allergies amoxicillin Allergy (Severe, Verified 07/01/24 13:14) Shortness of breathazithromycin Allergy (Severe, Verified 07/01/24 13:14) Shortness of breathclindamycin Allergy (Severe, Verified 07/01/24 13:14) Shortness of breathdoxycycline Allergy (Severe, Verified 07/01/24 13:14) Shortness of breatherythromycin lactobionate (From Erythrocin) Allergy (Severe, Verified 07/01/24 13:14) Shortness of breathPenicillins Allergy (Severe, Verified 07/01/24 13:14) Shortness of breathSulfa (Sulfonamide Antibiotics) Allergy (Severe, Verified 07/01/24 13:14) Shortness of breathsulfamethoxazole (From Bactrim) Allergy (Severe, Verified 07/01/24 13:14) Shortness of breathtrimethoprim (From Bactrim) Allergy (Severe, Verified 07/01/24 13:14) Shortness of breathAntihistamines - Alkylamine Allergy (Verified 07/01/24 13:14) doesn't for daysAntihistamines - Ethanolamine Allergy (Verified 07/01/24 13:14) NEEDS FOLLOW-UPAntihistamines - Ethylenediamine Allergy (Verified 07/01/24 13:14) NEEDS FOLLOW-UPAntihistamines - Piperidine Allergy (Verified 07/01/24 13:14) NEEDS FOLLOW-UPmeloxicam (From Mobic) Allergy (Verified 07/01/24 13:14) Chest tightnesstramadol Allergy (Verified 07/01/24 13:14) Unknowncodeine (From Tylenol-Codeine #3) Adverse Reaction (Verified 07/01/24 13:14) Nausea/Vom/Diarrheagabapentin Adverse Reaction (Verified 07/01/24 13:14) Otherterbutaline (From Brethine) Adverse Reaction (Verified 07/01/24 13:14) Other Medications ?Medication ?Instructions ?Recorded ?Confirmed ?Type lamotrigine 200 mg disintegrating 200 mg PO BID seizure 04/15/18 07/01/24 History tablet aspirin 81 mg chewable tablet 81 mg PO DAILY 04/21/18 07/01/24 Rx [id number]-[id number] 1 tab PO PRN PRN Migraine Symptoms 03/04/19 07/01/24 History 50 mg-325 mg-40 mg tablet 30 days #90 tabs promethazine 25 mg tablet 1 tab PO PRN PRN Nausea 30 days 03/04/19 07/01/24 History #90 tabs pantoprazole 40 mg tablet,delayed 40 mg PO BID 02/03/21 07/01/24 History release ezetimibe 10 mg tablet 10 mg PO DAILY cholesterol 10/06/21 07/01/24 History levothyroxine 125 mcg tablet 125 mcg PO DAILY 01/28/22 07/01/24 History nystatin 100,000 unit/mL oral 5 ml mucous membrane TID PRN thrush 01/28/22 07/01/24 History suspension fluoxetine 20 mg capsule 40 mg PO BID 04/18/22 07/01/24 History diazepam 5 mg tablet 5 mg PO TID Anxiety 01/29/23 07/01/24 History atenolol 25 mg tablet See Rx Instructions .Route 02/23/23 07/01/24 Rx .COMPLEX #90 TABLETS cholecalciferol (vitamin D3) 1,250 50,000 unit PO QWEEK 07/27/23 07/01/24 History mcg (50,000 unit) capsule furosemide 20 mg tablet 20 mg PO DAILY 07/27/23 07/01/24 History potassium chloride 20 mEq 20 meq PO DAILY 07/27/23 07/01/24 History tablet,extended release albuterol sulfate 2.5 mg/3 mL 2.5 mg (3 mL) inhalation Q4HWA.RT 07/31/23 07/01/24 Rx (0.083 %) solution for nebulization #180 mL albuterol sulfate 90 mcg/actuation 2 puff inhalation Q4H PRN PRN 07/31/23 07/01/24 Rx aerosol inhaler Wheezing ##1 sucralfate 100 mg/mL oral 10 ml PO .QID 06/25/24 07/01/24 History suspension Have you fallen in the past year?: No PFSH Medical History Depression Myocardial infarct COVID-19 (09/2021) Encounter for screening for COVID-19 Sore throat Cough Obesity History of non-ST elevation myocardial infarction (NSTEMI) (04/16/18) Bronchitis Acute on chronic respiratory failure with hypoxia and hypercapnia Asthma-COPD overlap syndrome History of sepsis Chronic neck and back pain Limb weakness Difficulty balancing Asthma COPD (chronic obstructive pulmonary disease) Severe headache Stomach ulcer Arthritis Hypersomnia, unspecified Diverticula of colon Acute diastolic (congestive) heart failure (04/18/18) Atherosclerosis of coronary artery of [place] heart without angina pectoris Hypothyroidism GERD (gastroesophageal reflux disease) Paroxysmal supraventricular tachycardia Bipolar disorder Chronic back pain TMJ (temporomandibular joint syndrome) Urinary incontinence Hypokalemia Hypoglycemia Surgical History History of endometrial ablation hx of throat biopsy History of left heart catheterization (04/18/18) History of cholecystectomy History of appendectomy History of dilatation and curettage History of left oophorectomy History of section Family History Mother Hypertension Pulmonary embolism Psychiatric careFather Lung cancerGrandmother Breast cancerSister Asthma Seizures Psychiatric care DepressionSon Depression Psychiatric care ADHDDaughter Depression Psychiatric care Bipolar 1 disorder Social History household members: children Smoking Status: Former smoker Tobacco: How many years used: 40 how long ago did patient quit smokin, 1.5ppd second hand exposure: Yes substance use type: does not use HPI HPI HPI: Patient is a 59-year-old female here to discuss her multiple bouts of diverticulitis. The patient had reported that she had multiple bouts of diverticulitis in the past. She says she treats these at home by staying home and eating yogurt and water. She recently had a CT scan that showed mild diverticulitis. Her last colonoscopy was several years ago. She reports that currently she is not having pain but these episodes happen frequently and her last one was a few weeks ago. ROS General General: Yes fatigue; No weight change, appetite, colon cancer, breast cancer or weakness HEENT HEENT: No difficulty swallowing, eye injury, eye surgery, swollen glands or hoarseness Endo Endocrine: Yes thyroid disease; No diabetes mellitus, thyroid cancer, Hair loss, heat intolerance or cold intolerance Skin Skin: No rash or changing moles Breast Breast: No left breast lump, right breast lump, nipple discharge, breast pain, abnormal mammogram, abnormal US or breast enlargement Musc Musculoskeletal: No back problems, arthritis, rheumatoid arthritis, gout or joint pain Cardio Cardiovascular: Yes heart disease and heart attack; No murmur, pacemaker, atrial fibrillation, high blood pressure, heart stent, palpitations, shortness of breat with exertion or chest pain Psych Psychiatric: Yes depression and anxiety; No hearing voices Resp Respiratory: Yes shortness of breath, No sleep apnea, No cough, Yes COPD, Yes asthma, No emphysema and No wheezing Gastro Gastrointestinal: Yes abdominal pain, Yes nausea or vomiting, Yes diarrhea, Yes constipation, No blood in stool, Yes acid reflux, No hemorrhoids, No ulcers, No gallbladder problem and No black,tarry stools Anthony Hematologic: Yes blood thinners, No blood disorders, No bleeding, No anemia and No blood clots Neuro Neurologic: No system reviewed and no additional complaints, except as documented, No as per HPI, No abnormal gait, No abnormal hearing, No abnormal movements, No abnormal speech, No behavioral changes, No burning sensations, No confusion, No convulsions, No disequilibrium, No dizziness, No localized weakness, No frequent falls, No headache(s), No lack of coordination, No loss of vision, No memory loss, No numbness, No other visual disturbances, No radicular pain, No restless legs, No sensory deficit, No syncope, No tingling, No tremor(s), No weakness and No other Exam Const General: cooperative Orientation: alert and oriented x3 HENMT Head: normal to inspection Neck Neck: normal visual inspection and full ROM Chest Chest palpation & inspection: normal inspection of the chest Resp Effort & Inspection: normal respiratory effort Auscultation: clear to auscultation bilaterally Cardio Rate: regular rate Rhythm: regular rhythm GI Inspection: non-distended Palpation: soft and nontender Skin General: no rashes or lesions noted Neuro General: patient alert and patient oriented x3 Extrem General: full ROM Psych Appearance: grossly normal Mental Status: mental status grossly normal Assessment and Plan Assessment and Plan (1) Diverticulitis large intestine w/o perforation or abscess w/bleeding: Status: Acute Plan: Patient reports history of multiple episodes of diverticulitis. She recently had a CT scan which showed mild diverticular thickening of the sigmoid colon. She has not had a colonoscopy in several years and I recommended a colonoscopy first to evaluate the remainder of the colon before surgery. I will then have her back to discuss sigmoid colectomy. I explained endoscopy in detail to the patient. I explained the risks including but not limited to stroke or heart attack with anesthesia, perforation of the GI tract, bleeding, infection. I explained that any of these could necessitate further emergency surgery. The patient understands and all questions were answered sufficiently. The patient wishes to proceed with procedure. Miguel Angel Almendarez MD Pager: [facility] [address] [place] [address], [address] [place] [address] Office: I have examined the patient and the H&P has been reviewed. There are no clinical changes since date of exam.
--- NOTE | 2024-10-03 10:03 | OP.CCLET_ITS ---
10/03/2024 Sofy Richter [address] [place] [address] Re : Colonoscopy procedure for Pepper Cesar Dear Dr. Richter This procedure was performed on Thursday, October 03, 2024. My impressions and recommendations are as follows: Impressions : - The entire examined colon is normal on direct and retroflexion views. - No specimens collected. Recommendations : - Discharge patient to home. - Resume previous diet. - Continue present medications. - Repeat colonoscopy in 10 years for screening purposes. - Return to my office at appointment to be scheduled. My findings are described in the full procedure note, which is enclosed. If I can be of further assistance, please feel free to contact me at Doctor phone number(s): , Work: . Sincerely, Miguel Angel Almendarez MD 10/03/2024 10:03:13 AM This report has been signed electronically.
--- NOTE | 2024-10-03 10:03 | OP.COLON_ITS ---
Patient Name: Pepper Cesar Procedure Date: 10/03/2024 9:30 AM Date of : 1965 Age: 59 Procedure: Colonoscopy Indications: Follow-up of diverticulitis Providers: Miguel Angel Almendarez MD Referring MD: Sofy Richter Medicines: Propofol per Anesthesia Patient Profile: Last Colonoscopy: several years ago. Complications: No immediate complications. Procedure: Pre-Anesthesia Assessment: - Prior to the procedure, a History and Physical was performed, and patient medications and allergies were reviewed. The patient's tolerance of previous anesthesia was also reviewed. The risks and benefits of the procedure and the sedation options and risks were discussed with the patient. All questions were answered, and informed consent was obtained. Prior Anticoagulants: The patient has taken no anticoagulant or antiplatelet agents. After reviewing the risks and benefits, the patient was deemed in satisfactory condition to undergo the procedure. After I obtained informed consent, the scope was passed under direct vision. Throughout the procedure, the patient's blood pressure, pulse, and oxygen saturations were monitored continuously. The pediatric colonoscope was introduced through the anus and advanced to the cecum, identified by appendiceal orifice and ileocecal valve. The colonoscopy was performed without difficulty. The patient tolerated the procedure well. The quality of the bowel preparation was good. The ileocecal valve, appendiceal orifice, and rectum were photographed. Scope In: 9:43:59 AM Scope Withdrawal Time 0 hours 6 minutes 2 seconds Scope Out: 9:57:35 AM Total Procedure Duration Time 0 hours 13 minutes 36 seconds Findings: The entire examined colon appeared normal on direct and retroflexion views. Impression: - The entire examined colon is normal on direct and retroflexion views. - No specimens collected. Recommendation: - Discharge patient to home. - Resume previous diet. - Continue present medications. - Repeat colonoscopy in 10 years for screening purposes. - Return to my office at appointment to be scheduled. Procedure Code(s): --- Professional --- 59035, Colonoscopy, flexible; diagnostic, including collection of specimen(s) by brushing or washing, when performed (separate procedure) Diagnosis Code(s): --- Professional --- K57.32, Diverticulitis of large intestine without perforation or abscess without bleeding CPT copyright 2021 [employer]. All rights reserved. The codes documented in this report are preliminary and upon web knitter review may be revised to meet current compliance requirements. Miguel Angel Almendarez MD 10/03/2024 10:03:13 AM This report has been signed electronically. Number of Addenda: 0 Note Initiated On: 10/03/2024 9:30 AM
--- NOTE | 2024-10-03 10:07 | PCM.POST.ANE ---
Anesthesia: Postop Eval I Current Vital Signs Temperature: 97.1 F Pulse Rate: 84 Blood Pressure: 107/71 Respiratory Rate: 16 Pulse Ox: 98 Oxygen Delivery Method: Room Air Assessment Airway patent: Yes Spontaneous unlabored respirations: Yes Mental status: Asleep nausea: No Vomiting: No Anesthesia Complication: No Fluid Hydration Crystalloid volume administer (ml): 40 Total IV fluid infused: 40 Progress Note Anesthesia document: Postop Eval 1 completed: Yes
--- NOTE | 2024-10-03 10:33 | PCM.POSTANE2 ---
Anesthesia Postop Eval I Sum Postop Eval Completion status Anesthesia document: Postop Eval 1 completed: Yes Anesthesia Postop Eval I Summary Anesthesia Postop Eval I Summary: Anesthesia Postop Eval I: Assessment Summary Airway patent Yes 10/03/24 10:08 [email or web address] Spontaneous unlabored Yes 10/03/24 10:08 [email or web address] respirations Mental status Asleep 10/03/24 10:08 [email or web address] nausea No 10/03/24 10:08 [email or web address] Vomiting No 10/03/24 10:08 [email or web address] Anesthesia Postop Eval I: Fluid Summary Crystalloid volume administer 40 10/03/24 10:08 [email or web address] (ml) Colloids volume administered ( ml) Blood Product volume administered (ml) Total IV fluid infused 40 10/03/24 10:08 [email or web address] Anesthesia Postop Eval I: Summary Notes Anesthesia Complication No 10/03/24 10:08 [email or web address] Anesthesia Complication Comment: Post-operative progress note Anesthesia: Postop Eval II Evaluation Mental status: Awake Pain Level: 0 nausea: No Vomiting: No
== END 2024-10-03 10:50 | disposition home or self-care (01) ==
LOC: EN 08:37 → AC 08:39
PROVIDERS: PCP Family Medicine; Referring Provider Family Medicine; Visit Provider Surgery
PROC: 0DJD8ZZ Inspection of Lower Intestinal Tract, Via Natural or Artificial Opening Endoscopic (ICD-10-PCS; CPT 45378; principal; 2024-10-03 09:25)
DX: K57.33 Diverticulitis of large intestine without perforation or abscess with bleeding (principal); I50.31 Acute diastolic (congestive) heart failure; J44.9 Chronic obstructive pulmonary disease, unspecified; I25.10 Atherosclerotic heart disease of native coronary artery without angina pectoris; Z87.891 Personal history of nicotine dependence; I25.2 Old myocardial infarction; E03.9 Hypothyroidism, unspecified; Z79.890 Hormone replacement therapy; K21.9 Gastro-esophageal reflux disease without esophagitis; F32.A Depression, unspecified; Z90.49 Acquired absence of other specified parts of digestive tract; Z90.721 Acquired absence of ovaries, unilateral
CPT/HCPCS: 45378; A4216; J2405

== ENCOUNTER → 2024-10-27 | Outpatient (CLI) | payer MEDICAID, SELFPAY ==
--- NOTE | 2024-10-27 16:57 | STRESSREP ---
Stress Test Report Pharmacologic myocardial perfusion stress test. 59-year-old lady with a history of coronary artery disease chest pain Resting EKG demonstrates sinus rhythm with a rate of 73 bpm. Resting blood pressure is 104/60 mmHg. 0.4 mg of regadenoson was infused per usual protocol followed by rapid intravenous saline flush injection. Continuous EKG monitoring was performed. The maximum heart rate was 85 bpm which was 52% of max impacted heart rate the maximum workload was 1 metabolic equivalent. At rest there were no ST or T wave changes noted to suggest ischemia and at peak infusion nonspecific ST changes were noted which did not meet the criteria for ischemia. No clinical angina is noted. The final blood pressure was 100/50 mmHg. Myocardial perfusion protocol. 12 mCi of technetium 99m sestamibi was injected at rest. 0.4 mg of regadenoson was infused per usual protocol. At peak infusion 36 mCi of technetium 99m sestamibi was injected stress images were obtained stress and rest images were reconstructed and compared in the short axis vertical long and horizontal long axis. Gated images were also obtained. Perfusion SPECT analysis: Review of the stress images demonstrate normal uptake of tracer noted in all areas of the myocardium. The resting images similar demonstrated normal uptake of tracer noted in all areas of the myocardium. No areas of reversibility are noted to suggest ischemia and no previous infarct is noted. Gated SPECT analysis: The gated ejection fraction is 83%. Conclusion: Normal pharmacologic myocardial perfusion stress test. Preserved ejection fraction.
== END | disposition home or self-care (01) ==
LOC: CVS 07:09
PROVIDERS: PCP Family Medicine; Referring Provider Internal Medicine Cardiovascular Disease; Visit Provider Internal Medicine Cardiovascular Disease
DX: I25.10 Atherosclerotic heart disease of native coronary artery without angina pectoris (principal)
CPT/HCPCS: 78452; 93017; A9500; A4216; J2785

== ENCOUNTER → 2024-11-25 | Outpatient (CLI) | payer MEDICAID, SELFPAY ==
[2024-11-25 13:00] VITALS: PULSE 104; PULSE 106; PULSE 108; PULSE 109; PULSE 110; PULSE 96; PULSE 99; O2SAT 91; O2SAT 92; O2SAT 93; O2SAT 95
--- NOTE | 2024-12-01 12:08 | PCM.PSN.6M ---
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 None used: Pre-test Oxygen Delivery Room Air Method Pulse Ox (%) 93 Pulse Rate (60-100 96 beats/min) Dyspnea Larry Scale ( 0.5 0-10) Exertion Larry Scale 6 (6-20) 1st minute Oxygen Delivery Room Air Method Pulse Ox (%) 92 Pulse Rate (60-100 104 H beats/min) 2nd minute Oxygen Delivery Room Air Method Pulse Ox (%) 92 Pulse Rate (60-100 104 H beats/min) 3rd minute Oxygen Delivery Room Air Method Pulse Ox (%) 91 Pulse Rate (60-100 106 H beats/min) 4th minute Oxygen Delivery Room Air Method Pulse Ox (%) 91 Pulse Rate (60-100 108 H beats/min) 5th minute Oxygen Delivery Room Air Method Pulse Ox (%) 92 Pulse Rate (60-100 109 H beats/min) 6th minute Oxygen Delivery Room Air Method Pulse Ox (%) 92 Pulse Rate (60-100 110 H beats/min) Dyspnea Larry Scale ( 4 0-10) Exertion Larry Scale 13 (6-20) Post-test Oxygen Delivery Room Air Method Pulse Ox (%) 95 Pulse Rate (60-100 99 beats/min) Full Laps Walked 13 Partial Lap, Number 40 of Tiles Walked Total Distance 807 Walked (ft) Interpretation Interpretation: The patient ambulated 807 feet over the course of 6 minutes beginning on room air without assistive devices. Pretesting oxygen saturation was noted to be 93% on room air. With ambulation, the evette oxygen saturation was 91%. There was no significant exertional oxygen desaturation. Recommendations Recommendations: There is no indication for the use of supplemental oxygen at this time.
== END | disposition home or self-care (01) ==
LOC: PSN 12:38
PROVIDERS: PCP Family Medicine; Referring Provider Nurse Practitioner Acute Care; Visit Provider Nurse Practitioner Acute Care
DX: J44.9 Chronic obstructive pulmonary disease, unspecified (principal)
CPT/HCPCS: 94618

== ENCOUNTER → 2024-12-18 | Outpatient (CLI) | payer MEDICAID, SELFPAY | END | disposition home or self-care (01) | LOC: PSN 13:02 | PROVIDERS: PCP Family Medicine; Referring Provider Nurse Practitioner Acute Care; Visit Provider Nurse Practitioner Acute Care | DX: J44.9 Chronic obstructive pulmonary disease, unspecified (principal) | CPT/HCPCS: 94060; 94726; 94729 ==

== ENCOUNTER → 2025-04-13 | Outpatient (CLI) | payer MEDICAID, SELFPAY ==
[2025-04-13 18:25] LABS: Hematocrit 34.5 % (37-47); Hemoglobin 11.5 g/dL (12.0-15.0); Immature Granulocytes Count 0.020 X10^3/uL (0.0-0.0); Mean Corp Hgb Conc 33.3 g/dL (32-36); Mean Corpuscular Volume 94.5 fL (81-99); Mean Platelet Vol. 12.3 fl (6.2-12.0); NRBC Flagged by Analyzer 0 % (0-5); Platelet Count 206 K/mm3 (150-450); RBC Distribution Width CV 12.5 % (11.6-14.6); RBC Distribution Width SD 43.5 fl (35.1-43.9); Red Blood Count 3.65 M/mm3 (4.2-5.4); White Blood Count 5.3 K/mm3 (4.4-11.0)
[2025-04-13 18:57] LABS: AST(SGOT) 36 U/L (<=31); Alanine Aminotransfer ALT/SGPT 24 U/L (<=34); Albumin, Serum 3.4 g/dL (3.5-5.0); Alkaline Phosphatase 137 U/L (35-104); Anion Gap 13 (5-15); BUN 12 mg/dL (4-19); BUN/Creat Ratio 15.4 RATIO (10-20); CRP 16.50 mg/L (0.0-3.0); Calcium,Total 8.4 mg/dL (7.6-11.0); Carbon Dioxide 28.1 mmol/L (21.0-32.0); Chloride 101 mmol/L (98-108); Cholesterol 236 mg/dL (<=200); Globulin 3.9 g/dL (2.2-4.2); Glucose 75 mg/dL (70-99); Low Density Lipoprotein Calc. 156 mg/dL; Potassium 3.6 mmol/L (3.3-5.1); Triglycerides 169 mg/dL; Very Low Density Lipoprotein 34 mg/dL (5-40); cholesterol:hdl ratio screen 5.06
[2025-04-13 19:39] LABS: Free T3 2.7 pg/mL (2.18-3.98)
== END | disposition home or self-care (01) ==
PROVIDERS: PCP Family Medicine; Referring Provider Family Medicine; Visit Provider Family Medicine
DX: R10.9 Unspecified abdominal pain (principal); E11.9 Type 2 diabetes mellitus without complications; E03.9 Hypothyroidism, unspecified; E78.5 Hyperlipidemia, unspecified; K57.92 Diverticulitis of intestine, part unspecified, without perforation or abscess without bleeding
CPT/HCPCS: 36415; 74018; 80053; 80061; 83036; 84439; 84443; 84481; 85025; 85652; 86140

== ENCOUNTER → 2025-04-24 | Outpatient (CLI) | payer MEDICAID, SELFPAY ==
--- NOTE | 2025-04-24 14:57 | RAD_ITS ---
PROCEDURE: HAND MIN 3 VIEWS 04/24/2025 REASON FOR EXAM: PAIN TECHNIQUE: HAND MIN 3 VIEWS COMPARISON: None FINDINGS: Bones: Unremarkable. Normal bone mineral density is noted involving the osseous structures of the right hand. There are no fractures or dislocations. Joints: Joint spaces are well preserved. Soft tissues: No soft tissue edema is noted. RAD/Hand Min 3 Views IMPRESSION: Unremarkable right hand study. Reading Location: [id number]
--- NOTE | 2025-04-24 14:58 | RAD_ITS ---
PROCEDURE: FOREARM 2 VIEWS 04/24/2025 REASON FOR EXAM: PAIN TECHNIQUE: FOREARM 2 VIEWS COMPARISON: None FINDINGS: Bones: Unremarkable. There are no fractures or dislocations. Normal bone mineral density is noted involving the osseous structures of the left forearm. Joints: Joint spaces are well preserved. Soft tissues: There is no soft tissue swelling. No soft tissue masses are noted. RAD/Forearm 2 Views IMPRESSION: Unremarkable right forearm study. Reading Location: [id number]
--- NOTE | 2025-04-24 15:04 | RAD_ITS ---
PROCEDURE: HAND MIN 3 VIEWS 04/24/2025 REASON FOR EXAM: PAIN TECHNIQUE: HAND MIN 3 VIEWS COMPARISON: None FINDINGS: Bones: Unremarkable. Normal bone mineral density is noted involving the osseous structures of the left hand. There are no fractures or dislocations. Joints: Joint spaces are well preserved. Soft tissues: No soft tissue edema is noted. RAD/Hand Min 3 Views IMPRESSION: Unremarkable left hand study. Reading Location: [id number]
--- NOTE | 2025-04-24 15:09 | RAD_ITS ---
PROCEDURE: FOREARM 2 VIEWS 04/24/2025 REASON FOR EXAM: PAIN TECHNIQUE: FOREARM 2 VIEWS COMPARISON: None FINDINGS: Bones: Unremarkable. There are no fractures or dislocations. There is normal bone mineral density of the osseous structures of the left forearm. Joints: Wrist joints and elbow joints appear unremarkable. There are no joint effusions. Soft tissues: No appreciable soft tissue swelling is noted. RAD/Forearm 2 Views IMPRESSION: Unremarkable left forearm study. Reading Location: [id number]
== END | disposition home or self-care (01) ==
LOC: MTRAD 14:55
PROVIDERS: PCP Family Medicine; Referring Provider Family Medicine; Visit Provider Family Medicine
DX: M79.641 Pain in right hand (principal); M79.642 Pain in left hand; M79.601 Pain in right arm; M79.602 Pain in left arm
CPT/HCPCS: 73090; 73130

== ENCOUNTER 2025-05-11 00:09 | Emergency (ER) | payer MEDICAID, SELFPAY ==
[2025-05-11 00:10] VITALS: BP 120/69; PULSE 96; RESP 18; TEMP 36.6; O2SAT 96; BMI 30.8
--- NOTE | 2025-05-11 00:18 | CT_ITS ---
PROCEDURE: SPINE CERVICAL WITHOUT CONTRAS 05/11/2025 REASON FOR EXAM: INJURY TECHNIQUE: SPINE CERVICAL WITHOUT CONTRAS Coronal and Sagittal reconstruction series were provided. One or more dose reduction techniques were used (e.g., Automated exposure control, adjustment of the mA and/or kV according to patient size, use of iterative reconstruction technique. RADIATION DOSE SUMMARY: CTDlvol: 30 mGy DLP: 569 mGycm COMPARISON: No FINDINGS: Scattered mild cervical spine degeneration. No acute fracture or dislocation. No soft tissue injury. No apical pneumothorax. Mild emphysema. CT/Spine Cervical without Contras IMPRESSION: No acute injury Reading Location: [place] [address]
--- NOTE | 2025-05-11 00:18 | CT_ITS ---
PROCEDURE: BRAIN/HEAD WITHOUT CONTRAST 05/11/2025 REASON FOR EXAM: HEAD INJURY TECHNIQUE: BRAIN/HEAD WITHOUT CONTRAST Coronal and Sagittal reconstruction series were provided. One or more dose reduction techniques were used (e.g., Automated exposure control, adjustment of the mA and/or kV according to patient size, use of iterative reconstruction technique. RADIATION DOSE SUMMARY: CTDlvol: 45 mGy DLP: 813 mGycm COMPARISON: 07/08/2023 FINDINGS: Mild atrophy. Mild white matter change. No acute abnormal brain densities. No intracranial hemorrhage. No hydrocephalus or midline shift. No acute scalp or skull pathology. There is right periorbital hemorrhage. CT/Brain/Head without Contrast IMPRESSION: No acute intracranial findings. Reading Location: [place] [address]
--- NOTE | 2025-05-11 00:18 | CT_ITS ---
PROCEDURE: SINUS/FACIAL BONE 05/11/2025 REASON FOR EXAM: INJURY TECHNIQUE: SINUS/FACIAL BONE Coronal and Sagittal reconstruction series were provided. One or more dose reduction techniques were used (e.g., Automated exposure control, adjustment of the mA and/or kV according to patient size, use of iterative reconstruction technique). RADIATION DOSE SUMMARY: CTDlvol: 27 mGy DLP: 608 mGycm COMPARISON: No FINDINGS: No facial fracture or dislocation. Right periorbital swelling/hemorrhage. Orbital soft tissues are otherwise intact. CT/Sinus/Facial Bone IMPRESSION: Right periorbital soft tissue injury. Reading Location: [place] [address]
--- NOTE | 2025-05-11 00:29 | EDS_ITS ---
HPI History of Present Illness Chief Complaint: Head Injury Informant: patient and family Narrative Narrative: Sent in after speaking with PCP this afternoon for CT imaging. 2 AM yesterday went to the bathroom she felt like she needed to have a bowel movement she is sleepy. She fell asleep falling off the commode hitting her face on the sink. She takes aspirin daily. No other blood thinners. Pain and swelling around the eyes. Using ice. Called her PCP was told to ED for CT scans. No other injuries. Ambulate with no difficulties. [facility] Medical History Acute otitis externa of right ear Acute otitis media, right Wears dentures Wears glasses Post-menopausal Bipolar disorder Anxiety Thyroid disease Excessive bleeding Migraine headache Injury of head and neck Difficulty swallowing History of diverticulitis Gastric reflux Former smoker On home oxygen therapy History of pain when walking History of edema History of echocardiogram History of stress test Cardiology follow-up encounter History of irregular heartbeat Depression Myocardial infarct COVID-19 (09/2021) Encounter for screening for COVID-19 Sore throat Cough Obesity History of non-ST elevation myocardial infarction (NSTEMI) (04/16/18) Bronchitis Acute on chronic respiratory failure with hypoxia and hypercapnia Asthma-COPD overlap syndrome History of sepsis Chronic neck and back pain Limb weakness Difficulty balancing Asthma COPD (chronic obstructive pulmonary disease) Severe headache Stomach ulcer Arthritis Hypersomnia, unspecified Diverticula of colon Acute diastolic (congestive) heart failure (04/18/18) Atherosclerosis of coronary artery of [place] heart without angina pectoris Hypothyroidism GERD (gastroesophageal reflux disease) Paroxysmal supraventricular tachycardia Bipolar disorder Chronic back pain TMJ (temporomandibular joint syndrome) Urinary incontinence Hypokalemia Hypoglycemia Home Medications ?Medication ?Instructions ?Recorded ?Last Taken ?Type lamotrigine 200 mg disintegrating 200 mg PO BID BIPOLA R 04/15/18 10/03/24 History tablet aspirin 81 mg chewable tablet 81 mg PO DAILY 04/21/18 09/24/24 Rx pssaxutoyp-iozmtuprlveyg-[id number] 1 tab PO PRN PRN Alec kitty Symptoms 03/04/19 Unknown History 50 mg-325 mg-40 mg tablet 30 days #90 tabs promethazine 25 mg tablet 1 tab PO PRN PRN Nausea 30 d ays 03/04/19 Unknown History #90 tabs pantoprazole 40 mg tablet,delayed 40 mg PO BID 1 Unknown History release ezetimibe 10 mg tablet 10 mg PO DAILY cholesterol 1 10/05/21 09:00 History levothyroxine 125 mcg tablet 125 mcg PO DAILY 01/28/22 Unknown History nystatin 100,000 unit/mL oral 5 ml mucous membrane TID PRN thrush 01/28/22 Unknown History suspension fluoxetine 20 mg capsule 40 mg PO BID 04/18/22 Unknow n History diazepam 5 mg tablet 5 mg PO TID Anxiety 01/29/23 Unknown History atenolol 25 mg tablet See Rx Instructions .Route 0 02/23/23 Unknown Rx .COMPLEX #90 TABLETS cholecalciferol (vitamin D3) 1,250 50,000 unit PO QWEE K 07/27/23 Unknown History mcg (50,000 unit) capsule furosemide 20 mg tablet 20 mg PO DAILY 07/27/23 Unkn own History albuterol sulfate 2.5 mg/3 mL 2.5 mg (3 mL) inhalation Q4HWA.RT 08/27/24 Unknown Rx (0.083 %) solution for nebulization #180 mL albuterol sulfate 90 mcg/actuation 2 puff inhalation Q 4H PRN PRN 08/27/24 Unknown Rx aerosol inhaler Wheezing ##1 azelastine 137 mcg (0.1 %) nasal 2 spray intranasal QH S 08/27/24 Unknown History spray potassium chloride 20 mEq 20 meq PO BID 10/10/24 Unkno wn History tablet,extended release sucralfate 100 mg/mL oral 10 ml PO .QID PRN 10/10/24 U nknown History suspension Crestor 5 mg tablet (rosuvastatin) 5 mg PO .COMPLEX #9 0 tabs 10/31/24 Unknown Rx cyclobenzaprine 10 mg tablet 10 mg PO TID PRN 02/09/25 Unknown History fluticasone 250 mcg-salmeterol 50 1 ea inhalation BID 02/09/25 Unknown History mcg/dose blistr powdr for inhalation (Advair Diskus) Allergy/AdvReac Type Severity Reaction Status Date / Time amoxicillin Allergy Severe Shortness Verified 05/11/25 00:12 of breath azithromycin Allergy Severe Shortness Verified 05/11/25 00:12 of breath clindamycin Allergy Severe Shortness Verified 05/11/25 00:12 of breath doxycycline Allergy Severe Shortness Verified 05/11/25 00:12 of breath erythromycin lactobionate Allergy Severe Shortness Verified 05/11/25 00:12 (From Erythrocin) of breath Penicillins Allergy Severe Shortness Verified 05/11/25 00:12 of breath Sulfa (Sulfonamide Allergy Severe Shortness Verified 05/11/25 00:12 Antibiotics) of breath sulfamethoxazole (From Allergy Severe Shortness Verified 05/11/25 00:12 Bactrim) of breath trimethoprim (From Bactrim) Allergy Severe Shortness Verified 05/11/25 00:12 of breath Antihistamines - Alkylamine Allergy doesn't Verified 05/11/25 00:12 for days Antihistamines - Ethanolamine Allergy NEEDS Verified 05/11/25 00:12 FOLLOW-UP Antihistamines - Allergy NEEDS Verified 05/11/25 00:12 Ethylenediamine FOLLOW-UP Antihistamines - Piperidine Allergy NEEDS Verified 05/11/25 00:12 FOLLOW-UP meloxicam (From Mobic) Allergy Chest Verified 05/11/25 00:12 tightness tramadol Allergy Unknown Verified 05/11/25 00:12 pravastatin AdvReac Intermediate Myalgias Verified 05/11/25 00:12 codeine (From AdvReac Nausea/Vom/ Verified 05/11/25 00:12 Tylenol-Codeine #3) Diarrhea gabapentin AdvReac Other Verified 05/11/25 00:12 terbutaline (From Brethine) AdvReac Other Verified 05/11/25 00:12 Family History Mother Hypertension Pulmonary embolism Psychiatric care Father Lung cancer Grandmother Breast cancer Sister Asthma Seizures Psychiatric care Depression Son Depression Psychiatric care ADHD Daughter Depression Psychiatric care Bipolar 1 disorder Surgical History Hx of prior ablation treatment Hx of colonoscopy History of endometrial ablation hx of throat biopsy History of left heart catheterization (04/18/18) History of cholecystectomy History of appendectomy History of dilatation and curettage History of left oophorectomy History of section Social History household members: children Smoking Status: Former smoker Tobacco: How many years used: 40 how long ago did patient quit smokin, 1.5ppd second hand exposure: Yes substance use type: does not use ROS ROS ED Constitutional Constitutional ED: Denies fever(s) Eyes Eyes: Reports other Details: Pain and swelling around right eye. Cardiovascular Cardiovascular: Denies chest pain Respiratory/Chest Respiratory/Chest: Denies cough Gastrointestinal Gastrointestinal: Denies diarrhea or vomiting Musculoskeletal Musculoskeletal: Denies none Integumentary Denies rash or wounds Neurologic Neurologic: Denies weakness EXAM Physical Exam Const Vital Signs: 05/11/25 00:10 05/11/25 00:13 05/11/25 01:55 Temperature 97.8 F 97.6 F L Temperature Source Oral Pulse Rate 96 60 Respiratory Rate 18 12 Respiratory Effort Normal Non-Labored Respiratory Depth Normal Respiratory Pattern Normal Blood Pressure 120/69 94/59 L Blood Pressure Mean 86 70 Pulse Ox 96 100 Oxygen Delivery Method Room Air Room Air Positive well nourished and well developed Constitutional Narrative: GCS 15. General Appearance ED: well developed HEENT HEENT Narrative: Right periorbital ecchymosis swelling upper lid. No conjunctival involvement. No hyphema. normocephalic Eyes General Eye ED: Yes normal appearance of both eyes Neck full ROM Neck Narrative: No midline tenderness no step-offs. Chest Wall inspection of chest normal and palpation of chest normal Resp normal respiratory effort and normal air movement Cardio regular rate and regular rhythm GI normal to inspection, nondistended, normoactive bowel sounds and soft to palpation Back/Spine no thoracic nor lumbar tenderness Extremity normal to inspection and full ROM Neuro oriented x3 and CN's II-XII intact bilaterally Skin Skin Narrative: See above MDM MDM MDM Narrative Medical decision making narrative: Interventions / MDM: Differential diagnosis: Concussion, head injury, periorbital ecchymosis Diagnosis considered but do not suspect: Intracranial hemorrhage, fractures however CT negative. My EKG interpretation: N/A Imaging independently reviewed and interpreted by myself: CT brain: No intracranial hemorrhage. CT facial bones no fracture, soft tissue swelling in the eye. CT cervical spine: No fracture. Also read by radiology. External documents reviewed: N/A Test considered but not ordered:N/A ED course: Head injury right periorbital ecchymosis. Ice was placed to the swelling. Trauma scans head neck and face for further evaluation. Results images negative. Started on Tylenol for headache symptoms. Discussed concussion precautions. Discussed continue to ice. Outpatient follow-up. All questions were answered. Re-evaluation: stable Disposition discussed with patient/family/significant other: Patient and family Case discussed with consulting clinician: N/A This note was generated with [employer] dictation software. It may contain incorrect words, spelling, and punctuation that were not noted in checking the note before signing. Radiography Diagnostic Testing: Clinical Impression(s) from Imaging Studies Brain CT 05/11/25 00:18 IMPRESSION: No acute intracranial findings. Reading Location: [facility] 05/11/25 00:18 IMPRESSION: No acute injury Reading Location: [facility] Facial/Sinus 05/11/25 00:18 IMPRESSION: Right periorbital soft tissue injury. Reading Location: [facility] Discharge Plan Triage Chief Complaint: Head Injury ED Provider: Bijan Mo Dx/Rx/DC Orders Clinical Impression: Concussion, CHI (closed head injury), Traumatic periorbital ecchymosis of right eye Instructions: Concussion Dc, ED Eye Contusion Prescriptions: No Action promethazine 25 mg tablet 1 tab PO PRN PRN (Reason: Nausea) 30 Days Qty: 90 [id number]-ylirotptsroqe-eqef 50-325-40 mg tablet 1 tab PO PRN PRN (Reason: Migraine Symptoms) 30 Days Qty: 90 pantoprazole 40 mg tablet,delayed release (DR/EC) 40 mg PO BID furosemide 20 mg tablet 20 mg PO DAILY cholecalciferol (vitamin D3) 1,250 mcg (50,000 unit) capsule 50,000 unit PO QWEEK Patient Comments: TAKE 1 CAPSULE BY MOUTH ONCE WEEKLY potassium chloride 20 mEq tablet extended release 20 meq PO BID Patient Comments: TAKE 1 TABLET BY MOUTH EVERY DAY sucralfate 100 mg/mL suspension 10 ml PO .QID PRN azelastine 137 mcg (0.1 %) spray,non-aerosol 2 spray intranasal QHS Patient Comments: [NO ORIGINAL SIG] albuterol sulfate 2.5 mg /3 mL (0.083 %) solution for nebulization 2.5 mg inhalation Q4HWA.RT Qty: 180 6RF albuterol sulfate 90 mcg/actuation HFA aerosol inhaler 2 puff inhalation Q4H PRN PRN (Reason: Wheezing) Qty: 1 11RF cyclobenzaprine 10 mg tablet 10 mg PO TID PRN fluticasone propion-salmeterol [Advair Diskus] 250-50 mcg/dose blister with device 1 ea inhalation BID lamotrigine 200 MG tablet,disintegrating 200 mg PO BID aspirin 81 MG tablet,chewable 81 mg PO DAILY 0RF fluoxetine 20 mg capsule 40 mg PO BID diazepam 5 mg tablet 5 mg PO TID ezetimibe 10 mg tablet 10 mg PO DAILY levothyroxine 125 mcg tablet 125 mcg PO DAILY Patient Comments: TAKE 1 TABLET BY MOUTH EVERY DAY IN THE MORNING ON EMPTY STOMACH nystatin 100,000 unit/mL suspension 5 ml mucous membrane TID PRN (Reason: thrush) Rx Instructions: swish and swallow 5 cc three times per day for 10 days atenolol 25 mg tablet See Rx Instructions .ROUTE .COMPLEX Qty: 90 4RF Dose Instruction: TAKE 1 TABLET BY MOUTH EVERY DAY Rx Instructions: TAKE 1 TABLET BY MOUTH EVERY DAY rosuvastatin [Crestor] 5 mg tablet 5 mg PO .COMPLEX Qty: 90 3RF Rx Instructions: 5 mg orally DAILY: pt has muscle aches with ALL STATINS except NAME [employer] (even with generic Rosuvastatin); PA being submitted Primary Care Provider: Sofy Richter Referrals: Sofy Richter DO [Primary Care Provider] - 1 Week Activity Restrictions/Additional Instructions: CT head face and cervical spine negative for fracture or intracranial hemorrhage. Use Tylenol up to 1 g every 6 hours as needed for headache. Continue to ice. Follow-up with your doctor. Print Language: Georgian Disposition Disposition: Home, Self Care Discharge Date/Time: 05/11/25 01:58
--- OUTSIDE RECORDS SUMMARY | 2025-05-11 01:34 | XMS RPT_ITS | CCD ---
Author Organization [facility] Care Team Providers Care Gallery Or Museum Attendant Name Role Phone IRAIDA QUESADA Unavailable Unavailable ROTHMAN, JIANMING Unavailable Unavailable KORI GARCÍA Unavailable Unavailable ROTHMAN, JIANMING Unavailable Unavailable ROTHMAN, JIANMING Unavailable Unavailable SABOTA, THOMAS W Unavailable Unavailable SABOTA, THOMAS W Unavailable Unavailable ROTHMAN, JIANMING Unavailable Unavailable Floridalma Martin Unavailable UnavailDr. Sofy Dennison Primary Care Provider Dr. Pete Gandhi Emergency Provider Dr. Nicki Chua Admit Provider Dr. Nicki Chua Attending Provider Dr. Nicki Chua Other Provider Dr. Noe Lin Attending Provider Dr. Noe Lin Other Provider Dr. Sofy Richter Primary Care Provider Dr. Sofy Richter Referring Provider Adilia BHAGAT, WAXER TENDER-C Sarah Attending Provider [phone] Dr. Yamil Merino Attending Provider Dr. Sofy Richter Primary Care Provider [phone] Dr. Sofy Richter Referring Provider STANTON Barron Attending Provider STANTON Storm Attending Provider Dr. Sofy Richter Primary Care Provider Dr. Sofy Richter Referring Provider [phone] Rober, Dr. Goetz Primary Care Provider [phone] Rober, Dr. Goetz Referring Provider [phone] STANTON Storm Attending Provider Friend, Dr. Cordoba Attending Provider [phone] Rober, Dr. Goetz Primary Care Provider [phone] Elieys, Dr. Goetz Referring Provider [phone] Adilia WAXER TENDER, WAXER TENDER-C Sarah Attending Provider STANTON Storm Attending Provider Rober, Dr. Goetz Primary Care Provider [phone] Rober, Dr. Goetz Referring Provider Colin, Dr. Cordboa Attending Provider [phone] Rober, Dr. Goetz Primary Care Provider [phone] Rober, Dr. Goetz Referring Provider [phone] Elieys, Dr. Goetz Primary Care Provider [phone] Elieys, Dr. Goetz Referring Provider [phone] Angelique, Dr. Lobo Attending Provider Adilia WAXER TENDER, WAXER TENDER-C Sarah Attending Provider Dr. Adalid Shaw Attending Provider [phone] Rober, Dr. Goetz Primary Care Provider oRber, Dr. Goetz Referring Provider [phone] Dr. Adalid Shaw Attending Provider [phone] Rober DO, Dr. Goetz Primary Care Provider Rober ROBLES, Dr. Goetz Attending Provider Adilia WAXER TENDER-C, Sarah Attending Provider Adilia WAXER TENDER-C, Sarah Referring Provider Rober ROBLES, Dr. Goetz Referring Provider Erickson PALMER, Dr. Michelle Attending Provider Erickson PALMER, Dr. Michelle Other Provider Angelique PALMER, Dr. Lobo Attending Provider 1([facility]) [phone] Angelique PALMER, Dr. Lobo Referring Provider [phone] Angelique PALMER, Dr. Lobo Other Provider 1([facility])[phone] Pat WAXER TENDER-C, Sarah Other Provider 1([facility])[phone] Jose Enrique ROBLES, Dr. Garcia Attending Provider 1([facility])[phone] Rober ROBLES, Dr. Goetz Primary Care Provider 1([facility])[phone] Pat WAXER TENDER-C, Sarah Attending Provider Pat WAXER TENDER-C, Sarah Referring Provider Jose Enrique ROBLES, Dr. Garcia Attending Provider 1([facility])[phone] Rober ROBLES, Dr. Goetz Referring Provider 1([facility])[phone] Terrence Barron Attending Provider 1([facility])[phone] Rober ROBLES, Dr. Goetz Attending Provider 1([facility])[phone] Rober ROBLES, Dr. Goetz Primary Care Provider 1([facility])[phone] Pat WAXER TENDER-C, Sarah Attending Provider Kings ROBLES, Dr. Deluna Attending Provider [phone] Mikie Ku DO Referring Provider Malys, Sofy Primary Care Unavailable Malys, Sofy Attending Unavailable Malys, Sofy Primary Care Unavailable Pat WAXER TENDER, Sarah Attending Unavailable Pat WAXER TENDER, Sarah Referring Unavailable Malys, Sofy Primary Care Unavailable Angelique, Yamil Referring Unavailable Yamil Merino Attending Unavailable Jose Quispe Attending Unavailable Malys, Sofy Primary Care Unavailable Pat WAXER TENDER, Sarah Consulting Unavailable Pat WAXER TENDER, Sarah Referring Unavailable Malys, Sofy Primary Care Unavailable Pat WAXER TENDER, Sarah Attending Unavailable Pat WAXER TENDER, Sarah Referring Unavailable Malys, Sofy Primary Care Unavailable Pat WAXER TENDER, Sarah Attending Unavailable Pat WAXER TENDER, Sarah Referring Unavailable Miguel Angel Almendarez Attending Unavailable Malys, Sofy Primary Care Unavailable Malys, Sofy Referring Unavailable Malys, Sofy Referring Unavailable Malys, Sofy Attending Unavailable Malys, Sofy Primary Care Unavailable Malys, Sofy Referring Unavailable Malys, Sofy Primary Care Unavailable Pat WAXER TENDER, Sarah Attending Unavailable Malys, Sofy Referring Unavailable Malys, Sofy Primary Care Unavailable Terrence Barron Attending Unavailable Malys, Sofy Primary Care Unavailable Malys, Sofy Referring Unavailable Malys, Sofy Attending Unavailable Kings, Mikie Referring Unavailable KingsMikie chan Attending Unavailable Malys, Sofy Primary Care Unavailable Malys, Sofy Referring Unavailable Malys, Sofy Attending Unavailable Malys, Sofy Primary Care Unavailable Malys, Sofy Referring Unavailable Adalid Shaw Attending Unavailable Malys, Sofy Primary Care Unavailable CalabrettaMiguel Angel Attending Unavailable Malys, Sofy Primary Care Unavailable Malys, Sofy Referring Unavailable Malys, Sofy Referring Unavailable Angelique, Yamil Attending Unavailable Malys, Sofy Primary Care Unavailable Malys, Sofy Primary Care Unavailable Malys, Sofy Referring Unavailable Pat WAXER TENDER, Sarah Attending Unavailable Miguel Angel Almendarez Attending Unavailable Miguel Angel Almendarez Consulting Unavailable Malys, Sofy Primary Care Unavailable Malys, Sofy Referring Unavailable Jose Quispe Attending Unavailable Malys, Sofy Primary Care Unavailable Pat WAXER TENDER, Sarah Referring Unavailable Malys, Sofy Referring Unavailable Pat WAXER TENDER, Sarah Attending Unavailable Malys, Sofy Primary Care Unavailable Malys, Sofy Primary Care Unavailable Angelique, Monroe Consulting Unavailable Angelique, Yamil Referring Unavailable Angelique, Aymil Attending Unavailable Allergies Allergy Classification Reported Allergen(s) Allergy Type Date of Onset Reaction(s) Facility (20 sources) Amoxicillin Drug Allergy 10-06-20 Shortness of breath [facility] Comment on above: AND HIVES (20 sources) Azithromycin Drug Allergy 10-06-20 Shortness of breath [facility] Comment on above: AND HIVES (20 sources) Clindamycin Drug Allergy 10-06-20 21 Shortness of breath [facility] Comment on above: AND HIVES (20 sources) Codeine Drug Allergy 10-06-20 21 Nausea/Vom/Annie rrhea [facility] (20 sources) Doxycycline Drug Allergy 10-06-20 21 Shortness of breath [facility] Comment on above: AND HIVES (20 sources) Erythromycin; Translations: [erythromycin lactobionate] Drug Allergy 10-06-20 Shortness of breath [facility] Comment on above: AND HIVES (20 sources) meloxicam Drug Allergy 10-06-20 Chest tightness [facility] (20 sources) Penicillins; Translations: [Penicillins] Allergy to substance 10-06-20 Shortness of breath [facility] Comment on above: AND HIVES (20 sources) Sulfamethoxazole Drug Allergy 10-06-20 Shortness of breath [facility] Comment on above: AND HIVES (20 sources) Sulfonamides (Antibiotic); Translations: [Sulfa (Sulfonamide Antibiotics)] Allergy to substance 10-06-20 Shortness of breath [facility] Comment on above: AND HIVES (20 sources) Terbutaline Drug Allergy 10-06-20 Other [facility] (20 sources) traMADol Drug Allergy 10-06-20 Unknown [facility] (20 sources) Trimethoprim Drug Allergy 10-06-20 Shortness of breath [facility] Comment on above: AND HIVES (5 sources) ANITHISTAMINES Allergy to substance 10-04-20 Unknown [facility] (15 sources) Ethylenediamine derivative antihistamine Allergy to substance 02-14-20 NEEDS FOLLOW-UP [facility] (15 sources) Antihistamines - Alkylamine Allergy to substance 02-14-20 NEEDS FOLLOW-UP, doesn't for days [facility] (15 sources) Antihistamines - Ethanolamine Allergy to substance 02-14-20 NEEDS FOLLOW-UP [facility] (15 sources) Antihistamines - Piperidine Allergy to substance 02-14-20 NEEDS FOLLOW-UP [facility] (12 sources) gabapentin Drug Allergy 06-08-20 Other [facility] Comment on above: MAKES ME FEEL DRUNK AND FALL OVER, SLURRED WORDS (5 sources) antiviral; Translations: [antiviral] Allergy to substance 07-31-20 combative [facility] (3 sources) Pravastatin Drug Allergy 10-23-19 Myalgias [facility] (1 source) Amoxicillin Drug Allergy 02-10-20 [facility] (1 source) Azithromycin Drug Allergy 02-10-20 [facility] (1 source) Clindamycin Drug Allergy 02-10-20 [facility] (1 source) Codeine Drug Allergy 02-10-20 [facility] (1 source) Doxycycline Drug Allergy 02-10-20 [facility] (1 source) gabapentin Drug Allergy 02-10-20 [facility] (1 source) meloxicam Drug Allergy 02-10-20 [facility] (1 source) Pravastatin Drug Allergy 02-10-20 [facility] (1 source) Sulfamethoxazole Drug Allergy 02-10-20 [facility] (1 source) Terbutaline Drug Allergy 02-10-20 [facility] (1 source) traMADol Drug Allergy 02-10-20 [facility] (1 source) Trimethoprim Drug Allergy 02-10-20 [facility] (1 source) Antihistamines - Alkylamine Drug allergy (disorder) 02-10-20 [facility] (1 source) Antihistamines - Ethylenediamine Drug allergy (disorder) 02-10-20 [facility] (1 source) Antihistamines - Ethanolamine Drug allergy (disorder) 02-10-20 [facility] (1 source) Antihistamines - Piperidine Drug allergy (disorder) 02-10-20 [facility] Medications Current Medications Medication Drug Class(es) Dates Sig (Normalized) Sig (Original) acetaminophen 325 mg / butalbital 50 mg / caffeine 40 mg oral tablet (20 sources) Barbiturate, Central Nervous System Stimulant, Methylxanthine Start: 03-04-2019 Butalbital-Aceta minophen-Caff 50-325-40 mg tablet Active 1 {tbl} PO NEEDED as needed for Migraine Symptoms March 04, 2019 12:00am Start: 03-04-2019 Butalbital-John taminophen-Caff Active 1 TABLET PO NEEDED March 04, 2019 12:00am Start: 10-23-2017 End: 04-21-2018 Torcmiloas-Wijowmuhrzgqf-Ppt f 1 TABLET tablet Discontinued 1 {tbl} PO EVERY 4 HOURS NEEDED as needed for Pain October 23, 2017 1:00am April 21, 2018 11:03am Start: 10-23-2017 End: 04-21-2018 take 1 tablet by mouth every four hours as needed Qahsgmstom-Brrtugjnypojg-Kcxj Discontinu ed 1 TABLET PO EVERY 4 HOURS NEEDED October 23, 2017 1:00am April 21, 2018 11:03am [id number] 200 actuat albuterol 0.09 mg/actuat metered dose inhaler (20 sources) beta2-Adrenergic Agonist Start: 07-31-2023 End: 08-27-2024 take 2.5 mg by inhalation every four hours Albuterol Sulfate 2.5 mg /3 mL (0.083 %) solution for nebulization Active 2.5 mg INHALATION EVERY 4 HOURS WHILE AWAKE 180 6 August 27, 2024 1:02pm Nicotine dependence, cigarettes, uncomplicated Start: 04-04-2022 End: 07-31-2023 take 2.5 mg by inhalation every four hours Albuterol Sulfate Discontinued 2.5 MG INHALATION EVERY 4 HOURS WHILE AWAKE 180 April 04, 2022 11:40am July 31, 2023 1:35pm Start: 04-04-2022 End: 07-31-2023 take 2.5 mg by inhalation every four hours Albuterol Sulfate Discontinued 2.5 MG INHALATION EVERY 4 HOURS WHILE AWAKE 180 April 04, 2022 10:40am July 31, 2023 12:35pm Start: 04-04-2022 take 2.5 mg by inhal ation every four hours Albuterol Sulfate Active 2.5 MG INHALATION EVERY 4 HOURS WHILE AWAKE 180 April 04, 2022 10:40am Start: 04-04-2022 take 2.5 mg by inhal ation every four hours Albuterol Sulfate Active 2.5 MG INHALATION EVERY 4 HOURS WHILE AWAKE 180 April 04, 2022 11:40am Start: 12-16-2019 End: 04-04-2022 take 2.5 mg by inhalation every four hours Albuterol Sulfate 2.5 mg /3 mL (0.083 %) solution for nebulization Discontinued 2.5 mg INHALATION EVERY 4 HOURS WHILE AWAKE 25 0 May 03, 2021 3:35pm April 04, 2022 11:41am Nicotine dependence, cigarettes, uncomplicated Start: 07-18-2019 End: 08-27-2024 Albuterol Sulfate 90 mcg/act uation HFA aerosol inhaler Discontinued 2 NMA INHALATION EVERY 4 HOURS NEEDED as needed for Wheezing 1 February 23, 2023 2:16pm July 31, 2023 1:35pm Nicotine dependence, cigarettes, uncomplicated Start: 07-18-2019 End: 07-31-2023 take 1 puff(s) by inhalation every four hours as needed Albuterol Sulfate Discontinued 2 PUFF INHALATION EVERY 4 HOURS NEEDED February 23, 2023 1:16pm July 31, 2023 12:35pm Start: 04-21-2018 End: 05-24-2018 take 2.5 mg by inhalation every two hours as needed Albuterol Sulfate 2.5 MG/3 ML solution for nebulization Discontinued 2.5 mg INHALATION EVERY 2 HOURS NEEDED as needed for Shortness Of Breath 0 April 21, 2018 12:00am May 24, 2018 10:28am Start: 02-03-2017 End: 01-20-2020 Albuterol Sulfate 1 INHALER inhaler Discontinued 2 NMA INHALATION EVERY 4 HOURS NEEDED as needed for Wheezing 1 0 January 24, 2019 12:00am July 18, 2019 1:19pm Start: 02-03-2017 End: 01-20-2020 take 1 puff(s) by inhalation every four hours as needed Albuterol Sulfate Discontinued 2 PUFF INHALATION EVERY 4 HOURS NEEDED January 23, 2019 11:00pm July 18, 2019 12:19pm Start: 10-16-2016 End: 04-21-2018 take 2.5 mg by inhalation every four hours as needed for wheezing Albuterol Sulfate 2.5 MG/3 ML Vial.Neb. Discontinued 2.5 mg INHALATION EVERY 4 HOURS NEEDED as needed for Sob &/Or Wheezing April 15, 2018 7:37pm April 21, 2018 11:03am Use q4 hours and PRN for wheezing aspirin 81 mg chewable tablet (20 sources) Platelet Aggregation Inhibitor, Nonsteroidal Anti-inflammatory Drug Start: 04-21-2018 take 1 tablet by mouth once daily Aspirin 81 MG tablet,chewable Active 81 mg PO DAILY 0 April 21, 2018 12:00am atenolol 25 mg oral tablet (20 sources) beta-Adrenergic Doretha Start: 01-29-2023 End: 02-23-2023 take 1 tablet by mouth once daily Atenolol 25 mg tablet Active 0 .ROUTE .COMPLEX 90 February 23, 2023 12:18pm TAKE 1 TABLET BY MOUTH EVERY DAY Start: 05-24-2018 End: 04-18-2022 take 1 tablet by mouth once daily Atenolol 25 mg tablet Discontinued 0 .ROUTE .COMPLEX 90 4 December 02, 2021 9:51am January 28, 2022 3:32pm TAKE 1 TABLET BY MOUTH EVERY DAY Start: 06-23-2014 End: 04-21-2018 take 1 tablet by mouth twice daily Atenolol 25 MG tablet Discontinued 25 mg PO TWICE A DAY June 23, 2014 12:00am April 21, 2018 11:03am heart azelastine hydrochloride 0.137 mg/actuat metered dose nasal spray (3 sources) Histamine-1 Receptor Antagonist Start: 08-27-2024 Azelastine 137 mcg (0.1 %) spray,non-aerosol Active 2 NMA INTRANASAL AT BEDTIME August 27, 2024 1:00am cholecalciferol 1.25 mg oral capsule (9 sources) Vitamin D Start: 07-27-2023 take 1 capsule by mouth every week Cholecalciferol (Vitamin D3) 1,250 mcg (50,000 unit) capsule Active 17386 U PO EVERY WEEK July 27, 2023 12:00am cyclobenzaprine hydrochloride 10 mg oral tablet (20 sources) Muscle Relaxant Start: 02-09-2025 take 1 tablet by mouth three times daily as needed Cyclobenzaprine 10 mg tablet Active 10 mg PO THREE TIMES A DAY as needed February 09, 2025 12:00am Start: 07-06-2020 End: 06-25-2024 take 2 tablets by mouth every six hours as needed for muscle spasms Cyclobenzaprine 10 mg tablet Discontinued 20 mg PO EVERY 6 HOURS as needed for MUSCLE SPASMS February 03, 2021 3:12pm June 25, 2024 2:12pm Start: 07-06-2020 End: 02-03-2021 take 20 mg by mouth every six hours Cyclobenzaprine Active 20 MG PO EVERY 6 HOURS February 03, 2021 2:12pm diazePAM 5 mg oral tablet (20 sources) Benzodiazepine Start: 01-29-2023 take 1 tablet by mouth three times daily Diazepam 5 mg tablet Active 5 mg PO THREE TIMES A DAY January 29, 2023 10:47am Anxiety Start: 06-22-2018 End: 01-29-2023 take 1 tablet by mouth twice daily as needed for anxiety Diazepam 5 MG tablet Discontinued 5 mg PO TWICE DAILY NEEDED as needed for Anxiety June 22, 2018 1:14am January 29, 2023 10:50am Start: 04-21-2018 End: 06-22-2018 take 1 tablet by mouth once daily as needed for anxiety Diazepam 5 MG tablet Discontinued 5 mg PO DAILY NEEDED as needed for Anxiety 3 0 April 21, 2018 11:05am June 22, 2018 1:14am Start: 06-23-2014 End: 04-21-2018 take 1 tablet by mouth twice daily Diazepam 5 MG tablet Discontinued 5 mg PO TWICE A DAY June 23, 2014 12:00am April 21, 2018 11:05am anxiety ezetimibe 10 mg oral tablet (20 sources) Dietary Cholesterol Absorption Inhibitor Start: 10-06-2021 take 1 tablet by mouth once daily Ezetimibe 10 mg tablet Active 10 mg PO DAILY October 06, 2021 1:00am cholesterol FLUoxetine 20 mg oral capsule (20 sources) Serotonin Reuptake Inhibitor Start: 06-22-2018 End: 04-18-2022 take 2 capsules by mouth twice daily Fluoxetine 20 mg capsule Active 40 mg PO TWICE A DAY April 18, 2022 1:27pm Start: 06-22-2018 End: 04-18-2022 take 40 mg by mouth twice daily Fluoxetine Active 40 M G PO TWICE A DAY April 18, 2022 12:27pm Fluticasone Propion-Salmeterol (2 sources) Corticosteroid, beta2-Adrenergic Agonist Start: 02-09-2025 Fluticasone Propion-Salmeterol (Advair Diskus) 250-50 mcg/dose blister with device Active 1 NMA INHALATION TWICE A DAY February 09, 2025 12:00am lamoTRIgine 200 mg disintegrating oral tablet (20 sources) Mood Stabilizer, Anti-epileptic Agent Start: 04-15-2018 take 1 tablet by mouth twice daily Lamotrigine 200 MG tablet,disintegrating Active 200 mg PO TWICE A DAY April 15, 2018 12:00am BIPOLAR levothyroxine sodium 0.125 mg oral tablet (20 sources) l-Thyroxine Start: 01-28-2022 take 1 tablet by mouth once daily Levothyroxine 125 mcg tablet Active 125 ug PO DAILY January 28, 2022 12:00am Start: 07-06-2020 End: 02-03-2021 Levothyroxine (Synthroid) 12 5 mcg tablet Discontinued 137 ug PO DAILY 0 July 06, 2020 2:11pm February 03, 2021 3:10pm thyroid Start: 11-08-2017 End: 07-06-2020 take 1 tablet by mouth once daily Levothyroxine (Synthroid) 125 mcg tablet Discontinued 125 ug PO DAILY 0 November 08, 2017 1:00am July 06, 2020 2:12pm thyroid nystatin [id number] unt/ml oral suspension (20 sources) Polyene Antifungal Start: 04-18-2021 End: 01-28-2022 Nystatin 100,000 unit/mL suspension Active 5 mL MUCOUS MEM THREE TIMES A DAY as needed for thrush January 28, 2022 3:32pm swish and swallow 5 cc three times per day for 10 days Start: 04-18-2021 End: 01-28-2022 Nystatin Active 5 ML MUCOUS MEM THREE TIMES A DAY January 28, 2022 2:32pm swish and swallow 5 cc three times per day for 10 days Start: 07-20-2020 End: 09-27-2020 Nystatin 100,000 unit/mL priya pension Discontinued 5 mL MUCOUS MEM THREE TIMES A DAY 250 1 July 20, 2020 12:00am September 27, 2020 12:39pm swish and swallow 5 cc three times per day for 10 days Start: 07-20-2020 End: 09-27-2020 Nystatin Discontinued 5 ML M UCOUS MEM THREE TIMES A DAY 250 July 20, 2020 12:00am September 27, 2020 12:39pm swish and swallow 5 cc three times per day for 10 days pantoprazole 40 mg delayed release oral tablet (20 sources) Proton Pump Inhibitor Start: 02-03-2021 take 1 tablet by mouth twice daily Pantoprazole 40 mg tablet,delayed release (DR/EC) Active 40 mg PO TWICE A DAY February 03, 2021 12:00am potassium chloride 20 meq extended release oral tablet (20 sources) Start: 10-10-2024 take 1 tablet by mouth twice daily Potassium Chloride 20 mEq tablet extended release Active 20 meq PO TWICE A DAY October 10, 2024 3:03pm Start: 07-27-2023 End: 10-10-2024 take 1 tablet by mouth once daily Potassium Chloride 20 mEq tablet extended release Discontinued 20 meq PO DAILY July 27, 2023 12:00am October 10, 2024 3:04pm Start: 12-19-2022 End: 01-29-2023 take 1 tablet by mouth once daily Potassium Chloride 20 mEq tablet extended release Discontinued 20 meq PO DAILY 3 December 19, 2022 12:00am January 29, 2023 10:49am promethazine hydrochloride 25 mg oral tablet (20 sources) Phenothiazine Start: 03-04-2019 Promethazine 2 5 mg tablet Active 1 {tbl} PO NEEDED as needed for Nausea 90 30 March 04, 2019 12:00am Start: 03-04-2019 Promethazine A ctive 1 TABLET PO NEEDED 90 March 04, 2019 12:00am Start: 10-23-2017 End: 04-21-2018 take 1 tablet by mouth three times daily Promethazine 25 MG tablet Discontinued 25 mg PO THREE TIMES A DAY October 23, 2017 1:00am April 21, 2018 11:04am nausea rosuvastatin 5 mg oral capsule (20 sources) HMG-CoA Reductase Inhibitor Start: 10-31-2024 take 1 tablet by mouth once daily Rosuvastatin (Crestor) 5 mg tablet Active 5 mg PO .COMPLEX 90 October 31, 2024 1:00am 5 mg orally DAILY: pt has muscle aches with ALL STATINS except NAME BRAND CRESTOR (even with generic Rosuvastatin); PA being submitted Start: 10-23-2024 End: 10-31-2024 take 1 tablet by mouth once daily Rosuvastatin 10 mg tablet Discontinued 10 mg PO daily 30 October 23, 2024 1:00am October 31, 2024 12:12pm Start: 06-23-2014 End: 04-21-2018 take 2 tablets by mouth at bedtime Rosuvastatin (Crestor) 20 MG tablet Discontinued 40 mg PO AT BEDTIME June 23, 2014 12:00am April 21, 2018 11:04am cholesterol sucralfate 100 mg/ml oral suspension (6 sources) Aluminum Complex Start: 06-25-2024 End: 10-10-2024 take 1 mL by mouth four times daily as needed Sucralfate 100 mg/mL suspension Active 10 mL PO .QID as needed October 10, 2024 3:03pm Completed/Discontinued Medications Medication Drug Class(es) Dates Sig (Normalized) Sig (Original) acetaminophen 325 mg / oxyCODONE hydrochloride 5 mg oral tablet (12 sources) Opioid Agonist Start: 06-08-2023 End: 07-27-2023 Oxycodone-Acetaminoph en 5-325 mg tablet Discontinued 1 {tbl} PO EVERY 6 HOURS NEEDED as needed for Pain 12 3 0 June 08, 2023 July 27, 2023 1:45pm Diverticulitis of sigmoid colon Start: 06-08-2023 End: 07-27-2023 take 1 tablet by mouth every six hours as needed Oxycodone-Acetaminophen Discontinued 1 TABLET PO EVERY 6 HOURS NEEDED 12 3 June 08, 2023 July 27, 2023 1:45pm albuterol 0.833 mg/ml / ipratropium bromide 0.167 mg/ml inhalation solution (20 sources) Anticholinergic, beta2-Adrenergic Agonist Start: 04-21-2018 End: 05-16-2018 take 1 mL by inhalation every four hours Ipratropium-Albuterol 3 ML solution for nebulization Discontinued 3 mL INHALATION EVERY 4 HOURS 0 April 21, 2018 12:00am May 16, 2018 12:56pm Start: 04-21-2018 End: 05-16-2018 take 1 mL by inhalation every four hours Ipratropium-Albuterol Discontinued 3 ML INHALATION EVERY 4 HOURS April 21, 2018 12:00am May 16, 2018 12:56pm Albuterol Sulfate 2.5 mg /3 mL (0.083 %) solution for nebulization (3 sources) Start: 04-04-2022 End: 07-31-2023 take 2.5 mg by inhalation every four hours Albuterol Sulfate 2.5 mg /3 mL (0.083 %) solution for nebulization Discontinued 2.5 mg INHALATION EVERY 4 HOURS WHILE AWAKE 180 6 April 04, 2022 11:40am July 31, 2023 1:35pm Nicotine dependence, cigarettes, uncomplicated Start: 04-04-2022 End: 07-31-2023 take 2.5 mg by inhalation every four hours Albuterol Sulfate 2.5 mg /3 mL (0.083 %) solution for nebulization Discontinued 2.5 mg INHALATION EVERY 4 HOURS WHILE AWAKE 180 April 04, 2022 11:40am July 31, 2023 1:35pm amiodarone hydrochloride 200 mg oral tablet (20 sources) Antiarrhythmic Start: 04-21-2018 End: 06-19-2018 take 1 tablet by mouth once daily Amiodarone 200 mg tablet Discontinued 200 mg PO DAILY 30 May 24, 2018 10:31am June 19, 2018 8:39am atorvastatin 40 mg oral tablet (20 sources) HMG-CoA Reductase Inhibitor Start: 04-21-2018 End: 05-24-2018 take 1 tablet by mouth at bedtime Atorvastatin 40 MG tablet Discontinued 40 mg PO AT BEDTIME 0 April 21, 2018 12:00am May 24, 2018 10:27am benzonatate 100 mg oral capsule (20 sources) Non-narcotic Antitussive Start: 04-15-2018 End: 04-21-2018 take 1 capsule by mouth three times daily as needed for cough Benzonatate 100 capsule Discontinued 100 mg PO THREE TIMES A DAY as needed for Cough April 15, 2018 12:00am April 21, 2018 11:03am Budesonide-Formoter ol (20 sources) Corticosteroid, beta2-Adrenergic Agonist Start: 04-04-2022 End: 07-27-2023 Budesonide-Formot lucero (Symbicort) 160-4.5 mcg/actuation HFA aerosol inhaler Discontinued 2 NMA INHALATION TWICE A DAY 3 3 April 04, 2022 11:40am July 27, 2023 1:43pm administer with spacer, rinse mouth after each use Start: 04-04-2022 End: 07-27-2023 Budesonide-Formoterol (Symbi al) 160-4.5 mcg/actuation HFA aerosol inhaler Discontinued 2 NMA INHALATION TWICE A DAY 3 April 04, 2022 11:40am July 27, 2023 1:43pm administer with spacer, rinse mouth after each use Start: 04-04-2022 End: 07-27-2023 take 1 puff(s) by mouth twice daily Budesonide-Formoterol (Symbicort) 160-4.5 mcg/actuation HFA aerosol inhaler Discontinued 2 PUFF INHALATION TWICE A DAY 3 April 04, 2022 11:40am July 27, 2023 1:43pm administer with spacer, rinse mouth after each use Start: 04-04-2022 End: 07-27-2023 take 1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 are noted. RAD/Forearm 2 Views IMPRESSION: Unremarkable right forearm study. Reading Location: [facility] CC: Dr. Sofy Richter DO; Dr. Mikie Ku DO 911 Emergency Dispatcher: Signed Normal [facility] Hand Min 3 Viewson Hand Min 3 Views [facility] Imaging Services [address] [place] [address] Hand Min 3 Views MR#: [id number] Acct: [id number] Name: ALEXEI FOWLER Rep #: [id number] : 1965 F 60 From: Priya Monreal PCP: Dr. Sofy Richter DO Status: REG CLI Study: Hand Min 3 Views Date of Exam: 04/24/25 Exam# [id number] Ordering Dr: Porfirio Ku MD PROCEDURE: HAND MIN 3 VIEWS 04/24/2025 REASON FOR EXAM: PAIN TECHNIQUE: HAND MIN 3 VIEWS COMPARISON: None FINDINGS: Bones: Unremarkable. Normal bone mineral density is noted involving the osseous structures of the left hand. There are no fractures or dislocations. Joints: Joint spaces are well preserved. Soft tissues: No soft tissue edema is noted. RAD/Hand Min 3 Views IMPRESSION: Unremarkable left hand study. Reading Location: [facility] CC: Dr. Sofy Richter DO; Dr. Porfirio Ku MD 911 Emergency Dispatcher: Signed Normal [facility] Hand Min 3 Views [facility] Imaging Services [address] [place] [address] Hand Min 3 Views MR#: [id number] Acct: [id number] Name: ALEXEI FOWLER Rep #: [id number] : 1965 F 60 From: Priya Monreal PCP: Dr. Sofy Richter DO Status: REG CLI Study: Hand Min 3 Views Date of Exam: 04/24/25 Exam# [id number] Ordering Dr: Mikie Ku DO PROCEDURE: HAND MIN 3 VIEWS 04/24/2025 REASON FOR EXAM: PAIN TECHNIQUE: HAND MIN 3 VIEWS COMPARISON: None FINDINGS: Bones: Unremarkable. Normal bone mineral density is noted involving the osseous structures of the right hand. There are no fractures or dislocations. Joints: Joint spaces are well preserved. Soft tissues: No soft tissue edema is noted. RAD/Hand Min 3 Views IMPRESSION: Unremarkable right hand study. Reading Location: [id number] CC: Dr. Sofy Richter DO; Dr. Mikie Ku DO 911 Emergency Dispatcher: Signed Normal [facility] Abdomen Single Viewon 2024 Abdomen Single View [facility] Imaging Services [address] [place] [address] Abdomen Single View MR#: [id number] Acct: [id number] Name: ALEXEI FOWLER Rep #: [id number] : 1965 F 60 From: Priya Monreal PCP: Dr. Sofy Richter DO Status: REG CLI Study: Abdomen Single View Date of Exam: 04/13/25 Exam# [id number] Ordering Dr: Sofy Richter DO PROCEDURE: ABDOMEN SINGLE VIEW 04/13/2025 REASON FOR EXAM: KUB- KIDNEY STONE TECHNIQUE: ABDOMEN SINGLE VIEW COMPARISON: None FINDINGS: 2 frontal views of the abdomen were obtained and demonstrate a moderate amount of stool and gas present throughout a nondistended colon. No free air is seen. Note however that free air could be missed on a supine view. If free air is suspected, a decubitus view or upright view should be performed. A 10 x 20 mm oval radiopaque density is projected over the left lower side of the T12 vertebral body. This appears to represent probable medication within the bowel. Psoas muscles and renal outlines are partially obscured by overlying bowel gas and fecal material within the colon. No gross organomegaly is seen. No abnormal calcific densities are identified in the region of the kidneys or ureters. Phleboliths are seen in the pelvis. The debris within the bowel could obscure a small stone. Ultrasound may be of use for further evaluation if clinically warranted. Surgical clips are seen in the gallbladder fossa. Lumbar spine, bony pelvis and both hips are grossly unremarkable. RAD/Abdomen Single View IMPRESSION: No acute abdominal process is identified radiographically. If a small renal stone is suspected, an ultrasound of the kidneys is recommended for further evaluation as described above. Reading Location: [id number] CC: Dr. Sofy Richter DO 911 Emergency Dispatcher: Signed Normal [facility] Absolute lymphocyte countOrd ered By: Sofy Richter on 04-13-2025 Lymphocytes Auto (Unsp spec) [#/Vol] 2.17 10*3/uL 0.83-4.51 [facility] Absolute neutrophil countOrd ered By: Sofy Richter on 04-13-2025 Neutrophils (Bld) [#/Vol] 2.7 10*3/uL 2.0-7.7 [facility] Anion gap in Serum or Plasma Ordered By: Sofy Richter on 04-13-2025 Anion gap [Moles/Vol] 13 mmol/L 5-15 [facility] Automated lymphocyte count a s percentage of total leukocytesOrdered By: Sofy Richter on 04-13-2025 Lymphocytes/100 WBC Auto (Unsp spec) 41.1 % High 19-41 [facility] BUN/creatinine ratioOrdered By: Sofy Richter on 04-13-2025 Urea nitrogen/Creatinine [Mass ratio] 15.4 mg/mg 10-20 [facility] Basophil percentageOrdered B y: Sofy Richter on 04-13-2025 Basophils/100 WBC (Bld) 0.4 % 0-1 [facility] Bilirubin, totalOrdered By: Sofy Richter on 04-13-2025 Bilirubin [Mass/Vol] 0.18 mg/dL 0.00-1.30 [facility] CBC W/Diff, Automatedon 07-0 7-202 Absolute Lymph 2.17 X10 3/uL Normal 0.83-4.51 [facility] Comment on above: Performed By: #### L 501.6710, L501.9985, L506.0400, L500.4050, L501.97173, L100.0100, L101.9900, L500.4100, L501.9520 #### [facility] [address] [place], [place], [phone] Absolute Neut 2.7 X10 3/uL Normal 2.0-7.7 [facility] Comment on above: Performed By: #### L 501.6710, L501.9985, L506.0400, L500.4050, L501.49313, L100.0100, L101.9900, L500.4100, L501.9520 #### [facility] [address] [place], [place], [phone]) Basophils/100 WBC (Bld) 0.4 % Normal 0-1 [facility] Comment on above: Performed By: #### L 501.6710, L501.9985, L506.0400, L500.4050, L501.44130, L100.0100, L101.9900, L500.4100, L501.9520 #### [facility] [address] [place], [address] Eosinophils/100 WBC (Bld) 1.3 % Normal 0-5 [facility] Comment on above: Performed By: #### L 501.6710, L501.9985, L506.0400, L500.4050, L501.76973, L100.0100, L101.9900, L500.4100, L501.9520 #### [facility] [address] [place], [place], [phone] Erythrocyte distribution width (RBC) [Ratio] 12.5 % Normal 11.6-14.6 [facility] Comment on above: Performed By: #### L 501.6710, L501.9985, L506.0400, L500.4050, L501.59323, L100.0100, L101.9900, L500.4100, L501.9520 #### [facility] [address] [place], [place], [phone] ([phone]) Hematocrit (Bld) [Volume fraction] 34.5 % Low 37-47 [facility] Comment on above: Performed By: #### L 501.6710, L501.9985, L506.0400, L500.4050, L501.05769, L100.0100, L101.9900, L500.4100, L501.9520 #### [facility] [address] [facility] [facility] [place], [place], [phone] Hemoglobin (Bld) [Mass/Vol] 11.5 g/dL Low 12.0-15. 0 [facility] Comment on above: Performed By: #### L 501.6710, L501.9985, L506.0400, L500.4050, L501.78371, L100.0100, L101.9900, L500.4100, L501.9520 #### [facility] [address] [place], [address] IG% 0.400 Normal 0.0-0.9 [facility] Comment on above: Result Comment: IG% - Immature Granulocytes (promyelocytes, myelocytes and metamyelocytes) > 1% indicates that a LEFT SHIFT is Present. Performed By: #### L 501.6710, L501.9985, L506.0400, L500.4050, L501.15740, L100.0100, L101.9900, L500.4100, L501.9520 #### [facility] [address] [facility] [place], [address] Lymphocytes/100 WBC (Bld) 41.1 % High 19-41 [facility] Comment on above: Performed By: #### L 501.6710, L501.9985, L506.0400, L500.4050, L501.93190, L100.0100, L101.9900, L500.4100, L501.9520 #### [facility] [address] [place], [address] MCH (RBC) [Entitic mass] 31.5 pg Normal 27.0-32.0 [facility] Comment on above: Performed By: #### L 501.6710, L501.9985, L506.0400, L500.4050, L501.69952, L100.0100, L101.9900, L500.4100, L501.9520 #### [facility] [address] [place], [address] MCHC (RBC) [Mass/Vol] 33.3 g/dL Normal 32-36 [facility] Comment on above: Performed By: #### L 501.6710, L501.9985, L506.0400, L500.4050, L501.34419, L100.0100, L101.9900, L500.4100, L501.9520 #### [facility] [address] [place], [address] MCV (RBC) [Entitic vol] 94.5 fL Normal 81-99 [facility] Comment on above: Performed By: #### L 501.6710, L501.9985, L506.0400, L500.4050, L501.57474, L100.0100, L101.9900, L500.4100, L501.9520 #### [facility] [address] [place], [address] Monocytes/100 WBC (Bld) 6.6 % Normal 0-10 [facility] Comment on above: Performed By: #### L 501.6710, L501.9985, L506.0400, L500.4050, L501.88123, L100.0100, L101.9900, L500.4100, L501.9520 #### [facility] [address] [place], [address] Neutrophils/100 WBC (Bld) 50.2 % Normal 47-70 [facility] Comment on above: Performed By: #### L 501.6710, L501.9985, L506.0400, L500.4050, L501.85625, L100.0100, L101.9900, L500.4100, L501.9520 #### [facility] [address] [place], [address] Nucleated RBC (Bld) [#/Vol] 0 10*3/uL Normal 0-5 [facility] Comment on above: Performed By: #### L 501.6710, L501.9985, L506.0400, L500.4050, L501.25114, L100.0100, L101.9900, L500.4100, L501.9520 #### [facility] [address] [place], [address] Platelet mean volume (Bld) [Entitic vol] 12.3 fL High 6.2-12.0 [facility] Comment on above: Performed By: #### L 501.6710, L501.9985, L506.0400, L500.4050, L501.74387, L100.0100, L101.9900, L500.4100, L501.9520 #### [facility] [address] [place], [address] Platelets (Bld) [#/Vol] 206 10*3/uL Normal 150-450 [facility] Comment on above: Performed By: #### L 501.6710, L501.9985, L506.0400, L500.4050, L501.96667, L100.0100, L101.9900, L500.4100, L501.9520 #### [facility] [address] [place], [address] RBC (Bld) [#/Vol] 3.65 10*6/uL Low 4.2-5.4 [facility] Comment on above: Performed By: #### L 501.6710, L501.9985, L506.0400, L500.4050, L501.50332, L100.0100, L101.9900, L500.4100, L501.9520 #### [facility] [address] [facility] [place], [address] RDW SD 43.5 fl Normal 35.1-43.9 [facility] Comment on above: Performed By: #### L 501.6710, L501.9985, L506.0400, L500.4050, L501.99416, L100.0100, L101.9900, L500.4100, L501.9520 #### [facility] [address] [place], [address] WBC (Bld) [#/Vol] 5.3 10*3/uL Normal 4.4-11.0 [facility] Comment on above: Performed By: #### L 501.6710, L501.9985, L506.0400, L500.4050, L501.84923, L100.0100, L101.9900, L500.4100, L501.9520 #### [facility] [address] [place], [address] CRPon 04-13-2025 C-REACTIVE PROT 16.50 mg/L High 0.0-3.0 [facility] Comment on above: Performed By: #### L 501.6710, L501.9985, L506.0400, L500.4050, L501.92043, L100.0100, L101.9900, L500.4100, L501.9520 ####[facility] [address] [place], [place], [phone] Calculated very low density lipoprotein (VLDL) cholesterol measurementOrdered By: Sofy Richter on 04-13-2025 Calculated very low density lipoprotein (VLDL) cholesterol measurement 34 mg/dL 5-40 [facility] Carbon dioxide, total [Moles /volume] in Central venous bloodOrdered By: Sofy Richter on 04-13-2025 CO2 [Moles/Vol] 28.1 mmol/L 21.0-32.0 [facility] Chloride assayOrdered By: Fabiola Richter on 04-13-2025 Chloride [Moles/Vol] 101 mmol/L 98-108 [facility] Comprehensive Metabolic Prof ilon 04-13-2025 Albumin [Mass/Vol] 3.4 g/dL Low 3.5-5.0 [facility] Comment on above: Performed By: #### L 501.6710, L501.9985, L506.0400, L500.4050, L501.01026, L100.0100, L101.9900, L500.4100, L501.9520 ####[facility] [address] [place], [place], [phone] Albumin/Globulin [Mass ratio] 0.9 {ratio} Normal 0.9-2.4 [facility] Comment on above: Performed By: #### L 501.6710, L501.9985, L506.0400, L500.4050, L501.32840, L100.0100, L101.9900, L500.4100, L501.9520 ####[facility] [address] [place], [place], [id number] ALK PHOS 137 U/L High 35-104 [facility] Comment on above: Performed By: #### L 501.6710, L501.9985, L506.0400, L500.4050, L501.16833, L100.0100, L101.9900, L500.4100, L501.9520 ####[facility] [address] [place], [place], [id number] ALT [Catalytic activity/Vol] 24 U/L Normal <=34 [facility] Comment on above: Performed By: #### L 501.6710, L501.9985, L506.0400, L500.4050, L501.10903, L100.0100, L101.9900, L500.4100, L501.9520 ####[facility] [address] [place], [address] AST [Catalytic activity/Vol] 36 U/L High <=31 [facility] Comment on above: Performed By: #### L 501.6710, L501.9985, L506.0400, L500.4050, L501.67039, L100.0100, L101.9900, L500.4100, L501.9520 ####[facility] [address] [place], [address] Bilirubin [Mass/Vol] 0.18 mg/dL Normal 0.00-1.30 [facility] Comment on above: Performed By: #### L 501.6710, L501.9985, L506.0400, L500.4050, L501.81275, L100.0100, L101.9900, L500.4100, L501.9520 ####[facility] [address] [place], [address] BUN/CRE 15.4 RATIO Normal 10-20 [facility] Comment on above: Performed By: #### L 501.6710, L501.9985, L506.0400, L500.4050, L501.63398, L100.0100, L101.9900, L500.4100, L501.9520 ####[facility] [address] [place], [address] Calcium [Mass/Vol] 8.4 mg/dL Normal 7.6-11.0 [facility] Comment on above: Performed By: #### L 501.6710, L501.9985, L506.0400, L500.4050, L501.40265, L100.0100, L101.9900, L500.4100, L501.9520 ####[facility] [address] [place], [address] Chloride [Moles/Vol] 101 mmol/L Normal 98-108 [facility] Comment on above: Performed By: #### L 501.6710, L501.9985, L506.0400, L500.4050, L501.02716, L100.0100, L101.9900, L500.4100, L501.9520 ####[facility] [address] [place], [address] CO2 [Moles/Vol] 28.1 mmol/L Normal 21.0-32.0 [facility] Comment on above: Performed By: #### L 501.6710, L501.9985, L506.0400, L500.4050, L501.42076, L100.0100, L101.9900, L500.4100, L501.9520 ####[facility] [address] [place], [address] Creatinine [Mass/Vol] 0.78 mg/dL Normal 0.70-1.20 [facility] Comment on above: Performed By: #### L 501.6710, L501.9985, L506.0400, L500.4050, L501.46248, L100.0100, L101.9900, L500.4100, L501.9520 ####[facility] [address] [place], [address] GAP 13 Normal 5-15 [facility] Comment on above: Performed By: #### L 501.6710, L501.9985, L506.0400, L500.4050, L501.71877, L100.0100, L101.9900, L500.4100, L501.9520 ####[facility] [address] [place], [address] GFR/1.73 sq M.predicted among non-blacks MDRD (S/P/Bld) [Vol rate/Area] 87 mL/min/{1.73_m2} Normal >60 [facility] Comment on above: Result Comment: mL/m in/1.73m2 CKD-EPI Creatinine Equation (2020) Performed By: #### L 501.6710, L501.9985, L506.0400, L500.4050, L501.77469, L100.0100, L101.9900, L500.4100, L501.9520 ####[facility] [address] [place], [address] Globulin (S) [Mass/Vol] 3.9 g/dL Normal 2.2-4.2 [facility] Comment on above: Performed By: #### L 501.6710, L501.9985, L506.0400, L500.4050, L501.45184, L100.0100, L101.9900, L500.4100, L501.9520 ####[facility] [address] [place], [address] Glucose [Mass/Vol] 75 mg/dL Normal 70-99 [facility] Comment on above: Performed By: #### L 501.6710, L501.9985, L506.0400, L500.4050, L501.09775, L100.0100, L101.9900, L500.4100, L501.9520 ####[facility] [address] [place], [address] Potassium [Moles/Vol] 3.6 mmol/L Normal 3.3-5.1 [facility] Comment on above: Performed By: #### L 501.6710, L501.9985, L506.0400, L500.4050, L501.78693, L100.0100, L101.9900, L500.4100, L501.9520 ####[facility] [address] [place], [address] Sodium [Moles/Vol] 142 mmol/L Normal 133-145 [facility] Comment on above: Performed By: #### L 501.6710, L501.9985, L506.0400, L500.4050, L501.04837, L100.0100, L101.9900, L500.4100, L501.9520 ####[facility] [address] [place], [place], [phone](493) T PROT 7.3 g/dL Normal 5.9-8.4 [facility] Comment on above: Performed By: #### L 501.6710, L501.9985, L506.0400, L500.4050, L501.59366, L100.0100, L101.9900, L500.4100, L501.9520 ####[facility] [address] [place], [address] Urea nitrogen [Mass/Vol] 12 mg/dL Normal 4-19 [facility] Comment on above: Performed By: #### L 501.6710, L501.9985, L506.0400, L500.4050, L501.05403, L100.0100, L101.9900, L500.4100, L501.9520 ####[facility] [address] [place], [address] Eosinophil percentageOrdered By: Sofy Richter on 04-13-2025 Eosinophils/100 WBC (Bld) 1.3 % 0-5 [facility] Erythrocyte Sed Rateon 04-13 SED RATE 11 mm/hr Normal 0-30 [facility] Comment on above: Performed By: #### L 501.6710, L501.9985, L506.0400, L500.4050, L501.01874, L100.0100, L101.9900, L500.4100, L501.9520 ####[facility] [address] [place], [address] Erythrocyte distribution wid th ratioOrdered By: Sofy Richter on 04-13-2025 Erythrocyte distribution width (RBC) [Ratio] 12.5 % 11.6-14.6 [facility] Erythrocyte distribution wid th standard deviationOrdered By: Sofy Richter on 04-13-2025 Erythrocyte distribution width (RBC) [Ratio] 43.5 fl 35.1-43.9 [facility] Erythrocyte sedimentation ra teOrdered By: Sofy Richter on 04-13-2025 ESR (Bld) [Velocity] 11 mm/h 0-30 [facility] Free T3on 04-13-2025 Free T3 [Mass/Vol] 2.7 pg/mL Normal 2.18-3.98 [facility] Comment on above: Performed By: #### L 501.6710, L501.9985, L506.0400, L500.4050, L501.70414, L100.0100, L101.9900, L500.4100, L501.9520 ####[facility] [address] [place], [address] Free V8Aejogzh By: Sofy barry on 04-13-2025 Free T3 [Mass/Vol] 2.7 pg/mL 2.18-3.98 [facility] Glomerular filtration rate ( GFR) estimation/1.73 sq m using serum, plasma, or whole bOrdered By: Sofy Richter on 04-13-2025 GFR/1.73 sq M.predicted among non-blacks MDRD (S/P/Bld) [Vol rate/Area] 87 mL/min/{1.73_m2} >60 [facility] Comment on above: mL/min/1.73m2 CKD-EP I Creatinine Equation (2020) Hematocrit Auto (Bld) [Volum e fraction]Ordered By: Sofy Richter on 04-13-2025 Hematocrit (Bld) [Volume fraction] 34.5 % Low 37-47 [facility] Hemoglobin A1con 04-13-2025 HbA1c (Bld) [Mass fraction] 5.7 % Normal <=5.6 [facility] Comment on above: Result Comment: Norm al < 5.7 % Prediabetic 5.7 - 6.4 % Diabetic >or= 6.5 % Please note range changes. Performed By: #### L 501.6710, L501.9985, L506.0400, L500.4050, L501.27711, L100.0100, L101.9900, L500.4100, L501.9520 ####[facility] [address] [facility] [place], [address] Hemoglobin A1c percentageOrd ered By: Sofy Richter on 04-13-2025 HbA1c (Bld) [Mass fraction] 5.7 % <5.7 [facility] Comment on above: Normal < 5.7 % Predi abetic 5.7 - 6.4 % Diabetic >or= 6.5 % Please note range changes. Hemoglobin measurementOrdere d By: Sofy Richter on 04-13-2025 Hemoglobin (Bld) [Mass/Vol] 11.5 g/dL Low 12.0-15. 0 [facility] Immature granulocytes/100 WB C Auto (Bld)Ordered By: Sofy Richter on 04-13-2025 Immature granulocytes/100 WBC (Bld) 0.400 % 0.0-0.9 [facility] Comment on above: IG% - Immature Granu locytes (promyelocytes, myelocytes and metamyelocytes) > 1% indicates that a LEFT SHIFT is Present. LDL calc ser/plasOrdered By: Sofy Richter on 04-13-2025 Cholesterol in LDL [Mass/Vol] 156 mg/dL [facility] Comment on above: Ixywmomkvv=716-922 m g/dL & Higher Nsbi=127 mg/dL or greater Laboratory - Chemistry and C hemistry - challengeOrdered By: Sofy Richter on 04-13-2025 AST [Catalytic activity/Vol] 36 U/L High <32 [facility] Lipid Profileon 04-13-2025 CHOL:HDL 5.06 Normal [facility] Comment on above: Performed By: #### L 501.6710, L501.9985, L506.0400, L500.4050, L501.33162, L100.0100, L101.9900, L500.4100, L501.9520 ####[facility] [address] [place], [place], [phone] Cholesterol [Mass/Vol] 236 mg/dL High <=200 [facility] Comment on above: Result Comment: Chol esterol level, Desirable <200 mg/dL Borderline high cholesterol 200-239 mg/dL High cholesterol >=240 mg/dL Recommendations of the NCEP Adult Treatment Panel for the following risk-cutoff thresholds for the [place] population. Performed By: #### L 501.6710, L501.9985, L506.0400, L500.4050, L501.31940, L100.0100, L101.9900, L500.4100, L501.9520 ####[facility] [address] [place], [place], [phone] Cholesterol in HDL [Mass/Vol] 47 mg/dL Normal [facility] Comment on above: Result Comment: Martha onal Cholesterol Education Program (NCEP) guidelines: <40 mg/dL: Low HDL-cholesterol (major risk factor for CHD) >= 60 mg/dL: High HDL-cholesterol (negative risk factor for CHD) HDL-cholesterol is affected by a number of factors, e.g. smoking, exercise, hormones, sex and age. Performed By: #### L 501.6710, L501.9985, L506.0400, L500.4050, L501.48906, L100.0100, L101.9900, L500.4100, L501.9520 ####[facility] [address] [place], [address] Cholesterol in LDL [Mass/Vol] 156 mg/dL Normal [facility] Comment on above: Result Comment: Bord egrtxu=595-406 mg/dL Higher Vovz=232 mg/dL or greater Performed By: #### L 501.6710, L501.9985, L506.0400, L500.4050, L501.10677, L100.0100, L101.9900, L500.4100, L501.9520 ####[facility] [address] [place], [address] Cholesterol in VLDL [Mass/Vol] 34 mg/dL Normal 5-40 [facility] Comment on above: Performed By: #### L 501.6710, L501.9985, L506.0400, L500.4050, L501.75301, L100.0100, L101.9900, L500.4100, L501.9520 ####[facility] [id number] [place], [address] Triglyceride [Mass/Vol] 169 mg/dL Normal [facility] Comment on above: Result Comment: The drugs N-Acetylcysteine and Metamizole may falsely depress this assay. Normal range: <150 mg/dL Borderline High: 150-199 mg/dL High: 200-499 mg/dL Very High: >500 mg/dL Performed By: #### L 501.6710, L501.9985, L506.0400, L500.4050, L501.15730, L100.0100, L101.9900, L500.4100, L501.9520 ####[facility] [address] [place], [address] MCV (mean corpuscular volume ) determinationOrdered By: Sofy Richter on 04-13-2025 MCV (RBC) [Entitic vol] 94.5 fL 81-99 [facility] Mean corpuscular hemoglobin (MCH) determinationOrdered By: Sofy Richter on 04-13-2025 MCH (RBC) [Entitic mass] 31.5 pg 27.0-32.0 [facility] Mean corpuscular hemoglobin concentration (MCHC) determinationOrdered By: Sofy Richter on 04-13-2025 MCHC (RBC) [Mass/Vol] 33.3 g/dL 32-36 [facility] Mean platelet volume determi nationOrdered By: Sofy Richter on 04-13-2025 Platelet mean volume (Bld) [Entitic vol] 12.3 fL High 6.2-12.0 [facility] Monocyte percentageOrdered B y: Sofy Richter on 04-13-2025 Monocytes/100 WBC (Bld) 6.6 % 0-10 [facility] Neutrophil percentageOrdered By: Sofy Richter on 04-13-2025 Neutrophils/100 WBC (Bld) 50.2 % 47-70 [facility] Nucleated red blood cell per centageOrdered By: Sofy Richter on 04-13-2025 Nucleated RBC/100 WBC (Bld) [Ratio] 0 % 0-5 [facility] Platelet countOrdered By: Fabiola Richter on 04-13-2025 Platelets (Bld) [#/Vol] 206 10*3/uL 150-450 [facility] Potassium measurement (mass/ volume)Ordered By: Sofy Richter on 04-13-2025 Potassium (Unsp spec) [Mass/Vol] 3.6 mmol/L 3.3-5.1 [facility] RBC Auto (Bld) [#/Vol]Ordere d By: Sofy Richter on 04-13-2025 RBC (Bld) [#/Vol] 3.65 10*6/uL Low 4.2-5.4 [facility] Screening total cholesterol/ high density lipoprotein (HDL) cholesterol ratioOrdered By: Sofy Richter on 04-13-2025 Cholesterol.total/Cholester ol in HDL [Mass ratio] 5.06 {ratio} [facility] Serum creatinine measurement (mass/volume)Ordered By: Sofy Richter on 04-13-2025 Creatinine [Mass/Vol] 0.78 mg/dL 0.70-1.20 [facility] Serum globulin measurementOr dered By: Sofy Richter on 04-13-2025 Globulin (S) [Mass/Vol] 3.9 g/dL 2.2-4.2 [facility] Serum glucose measurement (m ass/volume)Ordered By: Sofy Richter on 04-13-2025 Glucose [Mass/Vol] 75 mg/dL 70-99 [facility] Serum or plasma C reactive p rotein measurement (mass/volume)Ordered By: Sofy Richter on 04-13-2025 CRP [Mass/Vol] 16.50 mg/L High 0.0-3.0 [facility] Serum or plasma alanine bauer otransferase (ALT) measurementOrdered By: Sofy Richter on 04-13-2025 ALT [Catalytic activity/Vol] 24 U/L <35 [facility] Serum or plasma albumin andres urement (mass/volume)Ordered By: Sofy Richter on 04-13-2025 Albumin [Mass/Vol] 3.4 g/dL Low 3.5-5.0 [facility] Serum or plasma albumin/glob ulin mass ratioOrdered By: Sofy Richter on 04-13-2025 Albumin/Globulin [Mass ratio] 0.9 {ratio} 0.9-2.4 [facility] Serum or plasma alkaline sydni sphatase measurementOrdered By: Sofy Richter on 04-13-2025 ALP [Catalytic activity/Vol] 137 U/L High 35-104 [facility] Serum or plasma calcium andres urement (mass/volume)Ordered By: Sofy Richter on 04-13-2025 Calcium [Mass/Vol] 8.4 mg/dL 7.6-11.0 [facility] Serum or plasma cholesterol in HDL measurement (mass/volume)Ordered By: Sofy Richter on 04-13-2025 Cholesterol in HDL [Mass/Vol] 47 mg/dL >40 [facility] Comment on above: National Cholesterol Education Program (NCEP) guidelines:<40 mg/dL: Low HDL-cholesterol (major risk factor for CHD)>= 60 mg/dL: High HDL-cholesterol (negative risk factor for CHD)HDL-cholesterol is affected by a number of factors, e.g. smoking, exercise, hormones, sex and age. Serum or plasma cholesterol measurement (mass/volume)Ordered By: Sofy Richter on 04-13-2025 Cholesterol [Mass/Vol] 236 mg/dL High <201 [facility] Comment on above: Cholesterol level, D esirable <200 mg/dLBorderline high cholesterol 200-239 mg/dLHigh cholesterol >=240 mg/dLRecommendations of the NCEP Adult Treatment Panel for the following risk-cutoff thresholds for the [place] population. Serum or plasma urea nitroge n measurement (mass/volume)Ordered By: Sofy Richter on 04-13-2025 Urea nitrogen [Mass/Vol] 12 mg/dL 4-19 [facility] Sodium levelOrdered By: Sofy Richter on 04-13-2025 Sodium [Moles/Vol] 142 mmol/L 133-145 [facility] T4 Free Directon 04-13-2025 T4 FREE DIRECT 1.00 ng/dL Normal 0.76-1.46 [facility] Comment on above: Performed By: #### L 501.6710, L501.9985, L506.0400, L500.4050, L501.79345, L100.0100, L101.9900, L500.4100, L501.9520 ####[facility] [address] [place], [address] T4 freeOrdered By: Sofy Dinero s on 04-13-2025 Free T4 [Mass/Vol] 1.00 ng/dL 0.76-1.46 [facility] TSH DL <= 0.005 mIU/L QnOrde red By: Sofy Richter on 04-13-2025 TSH Qn 1.770 uIU/mL 0.300-4.200 [facility] Thyroid Stim Hormone (TSH)on 04-13-2025 TSH 1.770 uIU/mL Normal 0.300-4.200 [facility] Comment on above: Performed By: #### L 501.6710, L501.9985, L506.0400, L500.4050, L501.50525, L100.0100, L101.9900, L500.4100, L501.9520 ####[facility] [address] [place], [address] Total proteinOrdered By: June Richter on 04-13-2025 Protein [Mass/Vol] 7.3 g/dL 5.9-8.4 [facility] Triglycerides measurementOrd ered By: Sofy Richter on 04-13-2025 Triglyceride [Mass/Vol] 169 mg/dL <199 [facility] Comment on above: The drugs N-Acetylcy steine and Metamizole may falsely depress this assay. Normal range: <150 mg/dLBorderline High: 150-199 mg/dLHigh: 200-499 mg/dLVery High: >500 mg/dL White blood cell (WBC) count Ordered By: Sofy Richter on 04-13-2025 WBC (Bld) [#/Vol] 5.3 10*3/uL 4.4-11.0 [facility] Pulmonary Visit Reporton Pulmonary Visit Report [facility] [address] [place] [address] OFFICE VISIT Date of Service: 02/09/25 MR#: [id number] Acct: [id number] Name: ALEXEI FOWLER Rep #: [id number] : 1965 Provider: LALITHA Pat Age/Sex: 60/F Location: [facility] Status: Signed Assessment and Plan Assessment and Plan (1) Asthma-COPD overlap syndrome: Status: Chronic Comment: FEV1 64% Plan: Stable, no signs of exacerbation of asthma/COPD overlap today. No need for antibiotics or prednisone. She is symptomatically controlled on Advair. No additional testing at this time. Contact the office with any signs of new or worsening symptoms. Follow-up in October to discuss test results. (2) Smoking greater than 30 pack years: Status: Chronic Comment: quit 2018 Plan: Encourage ongoing smoking cessation. Repeat LDCT due in September 2025, ordered previously. Follow- up in the office in October to discuss test results. Orders: Orders Low Dose CT Lung Screening 09/07/25 F17.200 - Nicotine dependence, unspecified, uncomplicated, F17.210 - Nicotine dependence, cigarettes, uncomplicated Plan Details Additional Comments: This note was generated with [employer] dictation software. It may contain incorrect words, spelling, and punctuation that were not noted in checking the note before signing. Follow Up: 10/08/25 ([facility]) HPI Follow up after testing Chief Complaint: Test results HPI Comments Details: This patient presents to the office today for follow-up of her asthma/COPD overlap syndrome. She is ambulatory, currently on room air. She has not recently required any antibiotics or prednisone for any breathing problems. She has not been to the emergency room or urgent care for any respiratory complaints since her last office visit. She is compliant with the use of Advair twice daily. She does report rinsing her mouth out after each use. Medication side effect such as sore throat or thrush. She is using Flonase as needed. She continues compliance with no smoking since 2018. She has shortness of breath on exertion. She reports a cough that can be productive of clear-colored sputum, however she denies any hemoptysis. She denies any wheezing, chest tightness, or palpitations. She also denies any fever, chills or body aches. Test results personally viewed the patient: Walking oximetry completed on November 25, 2024. The patient was able to ambulate a total of 807 feet over the course of 6 minutes. She did not become hypoxic and does not currently require supplemental oxygen. Pulmonary function test completed on December 18, 2024. Impression is partially reversible moderate large airway obstructive untoward effect with symmetric reduction in diffusing capacity. FEV1 64% of predicted. Low-dose CT lung screening completed on September 26, 2024. No pulmonary nodules. Recommendation is to continue screening with LDCT in 12 months. 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 Vendor: oxygen - [employer] Accompanied by: Son Allergies amoxicillin Allergy (Severe, Verified 02/09/25 09:58) Shortness of breath azithromycin Allergy (Severe, Verified 02/09/25 09:58) Shortness of breath clindamycin Allergy (Severe, Verified 02/09/25 09:58) Shortness of breath doxycycline Allergy (Severe, Verified 02/09/25 09:58) Shortness of breath erythromycin lactobionate (From Erythrocin) Allergy (Severe, Verified 02/09/25 09:58) Shortness of breath Penicillins Allergy (Severe, Verified 02/09/25 09:58) Shortness of breath Sulfa (Sulfonamide Antibiotics) Allergy (Severe, Verified 02/09/25 09:58) Shortness of breath sulfamethoxazole (From Bactrim) Allergy (Severe, Verified 02/09/25 09:58) Shortness of breath trimethoprim (From Bactrim) Allergy (Severe, Verified 02/09/25 09:58) Shortness of breath Antihistamines - Alkylamine Allergy (Verified 02/09/25 09:58) doesn't for days Antihistamines - Ethanolamine Allergy (Verified 02/09/25 09:58) NEEDS FOLLOW-UP Antihistamines - Ethylenediamine Allergy (Verified 02/09/25 09:58) NEEDS FOLLOW-UP Antihistamines - Piperidine Allergy (Verified 02/09/25 09:58) NEEDS FOLLOW-UP meloxicam (From Mobic) Allergy (Verified 02/09/25 09:58) Chest tightness tramadol Allergy (Verified 02/09/25 09:58) Unknown pravastatin Adverse Reaction (Intermediate, Verified 02/09/25 09:58) Myalgias codeine (From Tylenol-C (more content not included)... Normal [facility] Urgent Care Visit Reporton 0 02-09-2025 Urgent Care Visit Report [facility] [address], [address] [place] [address] OFFICE VISIT Date of Service: 02/09/25 MR#: [id number] Acct: [id number] Name: ALEXEI FOWLER Rep #: [id number] : 1965 Provider: STANTON Martin Age/Sex: 60/F Location: [facility] Status: Signed Intake Vital Signs 02/09/25 08:02 02/09/25 11:03 Height 5 ft 7 in Weight: 190 lb BMI 29.7 BP 104/58 L 110/60 Blood Pressure Location Lt brachial Lt brachial Position Sitting Sitting Respiration 18 17 Pulse 76 79 Pulse Source Monitor NIBP Temp 97.3 F L 98.7 F Temp Source Oral Pulse Oximetry (%) 95 95 Oxygen Delivery Method room air room air Intake Visit Reasons: right ear pain Chief Complaint: right ear pain 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 Required: No Is patient in pain?: Yes Allergies amoxicillin Allergy (Severe, Verified 02/09/25 11:04) Shortness of breath azithromycin Allergy (Severe, Verified 02/09/25 11:04) Shortness of breath clindamycin Allergy (Severe, Verified 02/09/25 11:04) Shortness of breath doxycycline Allergy (Severe, Verified 02/09/25 11:04) Shortness of breath erythromycin lactobionate (From Erythrocin) Allergy (Severe, Verified 02/09/25 11:04) Shortness of breath Penicillins Allergy (Severe, Verified 02/09/25 11:04) Shortness of breath Sulfa (Sulfonamide Antibiotics) Allergy (Severe, Verified 02/09/25 11:04) Shortness of breath sulfamethoxazole (From Bactrim) Allergy (Severe, Verified 02/09/25 11:04) Shortness of breath trimethoprim (From Bactrim) Allergy (Severe, Verified 02/09/25 11:04) Shortness of breath Antihistamines - Alkylamine Allergy (Verified 02/09/25 11:04) doesn't for days Antihistamines - Ethanolamine Allergy (Verified 02/09/25 11:04) NEEDS FOLLOW-UP Antihistamines - Ethylenediamine Allergy (Verified 02/09/25 11:04) NEEDS FOLLOW-UP Antihistamines - Piperidine Allergy (Verified 02/09/25 11:04) NEEDS FOLLOW-UP meloxicam (From Mobic) Allergy (Verified 02/09/25 11:04) Chest tightness tramadol Allergy (Verified 02/09/25 11:04) Unknown pravastatin Adverse Reaction (Intermediate, Verified 02/09/25 11:04) Myalgias codeine (From Tylenol-Codeine #3) Adverse Reaction (Verified 02/09/25 11:04) Nausea/Vom/Diarrhea gabapentin Adverse Reaction (Verified 02/09/25 11:04) Other terbutaline (From Brethine) Adverse Reaction (Verified 02/09/25 11:04) Other Is last menstrual period known: No Post menopausal: Yes Patient : No Have you fallen in the past year?: No Nurse's Note: right ear pain worsening x 1 week. tried Cipro and gtts from PCP without relief. cannot use hearing aids d/t pain. denies fever, drainage, blood. [facility] Medical History (Updated 02/09/25 @ 11:53 by Terrence EID, PA) Acute otitis externa of right ear Acute otitis media, right Wears dentures Wears glasses Post-menopausal Bipolar disorder Anxiety Thyroid disease Excessive bleeding Migraine headache Injury of head and neck Difficulty swallowing History of diverticulitis Gastric reflux Former smoker On home oxygen therapy History of pain when walking History of edema History of echocardiogram History of stress test Cardiology follow-up encounter History of irregular heartbeat Depression Myocardial infarct COVID-19 (09/2021) Encounter for screening for COVID-19 Sore throat Cough Obesity History of non-ST elevation myocardial infarction (NSTEMI) (04/16/18) Bronchitis Acute on chronic respiratory failure with hypoxia and hypercapnia Asthma-COPD overlap syndrome History of sepsis Chronic neck and back pain Limb weakness Difficulty balancing Asthma COPD (chronic obstructive pulmonary disease) Severe headache Stomach ulcer Arthritis Hypersomnia, unspecified Diverticula of colon Acute diastolic (congestive) heart failure (04/18/18) Atherosclerosis of coronary artery of [place] heart without angina pectoris Hypothyroidism GERD (gastroesophageal reflux disease) Paroxysmal supraventricular tachycardia Bipolar disorder Chronic back pain TMJ (temporomandibular joint syndrome) Urinary incontinence Hypokalemia Hypoglycemia Surgical History Hx of prior ablation treatment Hx of colonoscopy History of endometrial ablation hx of throat biopsy History of left heart catheterization (04/18/18) History of cholecystectomy History of appendectomy History of dilatation and curettage History of left oophorectomy History of section Family History Mother Hypertension Pulmonary embolism Psychiatric care Father Lung cancer Grandmother Breast cancer Sister Asthma Seizures Psychiatric care Depression Son Depression Psychiatric care ADHD Daughter Depre (more content not included)... Normal [facility] 6 Minute Walk Teston 12-01- 025 6 Minute Walk Test y [facility] [address] [place] [address] MR#: [id number] Acct: [id number] Name: ALEXEI FOWLER Rep #: [id number] : 1965 59 From: Jose Quispe DO Referring Dr: Sarah Pat WAXER TENDER WAXER TENDER-C Status: REG CLI Location: PSN Date: Sex: F C PSN 6 Minute Walk Test 6 Minute Walk Test 6 Minute Walk Test: 6 Minute Walk Test PSN:6-Minute Walk Test Start: 11/25/24 12:59 Freq: Status: Active Protocol: RESP.6MINW Document 11/25/24 13:00 SFENTON (Rec: 11/25/24 13:02 SFENTON [id number]) 6 Minute Walk Test Date Performed 11/25/24 Time Performed 12:45 Height 5 ft 7 in Weight: 185 lb Weight in Pounds 185.[address]: Sarah Pat WAXER TENDER Assistive device None used: Pre-test Oxygen Delivery Room Air Method Pulse Ox (%) 93 Pulse Rate (60-100 96 beats/min) Dyspnea Larry Scale ( 0.5 0-10) Exertion Larry Scale 6 (6-20) 1st minute Oxygen Delivery Room Air Method Pulse Ox (%) 92 Pulse Rate (60-100 104 H beats/min) 2nd minute Oxygen Delivery Room Air Method Pulse Ox (%) 92 Pulse Rate (60-100 104 H beats/min) 3rd minute Oxygen Delivery Room Air Method Pulse Ox (%) 91 Pulse Rate (60-100 106 H beats/min) 4th minute Oxygen Delivery Room Air Method Pulse Ox (%) 91 Pulse Rate (60-100 108 H beats/min) 5th minute Oxygen Delivery Room Air Method Pulse Ox (%) 92 Pulse Rate (60-100 109 H beats/min) 6th minute Oxygen Delivery Room Air Method Pulse Ox (%) 92 Pulse Rate (60-100 110 H beats/min) Dyspnea Larry Scale ( 4 0-10) Exertion Larry Scale 13 (6-20) Post-test Oxygen Delivery Room Air Method Pulse Ox (%) 95 Pulse Rate (60-100 99 beats/min) Full Laps Walked 13 Partial Lap, Number 40 of Tiles Walked Total Distance 807 Walked (ft) Interpretation Interpretation: The patient ambulated 807 feet over the course of 6 minutes beginning on room air without assistive devices. Pretesting oxygen saturation was noted to be 93% on room air. With ambulation, the evette oxygen saturation was 91%. There was no significant exertional oxygen desaturation. Recommendations Recommendations: There is no indication for the use of supplemental oxygen at this time. 12/01/24 1208 Date Jose Quispe DO CC: Date Dictated: 12/01/24 1208 Date Transcribed: 12/01/241207 911 Emergency Dispatcher: Dr. Jose Quispe DO Signed Normal [facility] Stress Reporton 10-27-2024 Stress Report [facility] [address] [place] [address] MR#: [id number] Acct: [id number] Name: ALEXEI FOWLER Rep #: [id number] : 1965 59 From: Yamil Merino MD Primary Care: Dr. Sofy Richter DO Status: R EG CLI Referring Dr: Yamil Merino MD Sex: F C Stress Test Report Pharmacologic myocardial perfusion stress test. 59-year-old lady with a history of coronary artery disease chest pain Resting EKG demonstrates sinus rhythm with a rate of 73 bpm. Resting blood pressure is 104/60 mmHg. 0.4 mg of regadenoson was infused per usual protocol followed by rapid intravenous saline flush injection. Continuous EKG monitoring was performed. The maximum heart rate was 85 bpm which was 52% of max impacted heart rate the maximum workload was 1 metabolic equivalent. At rest there were no ST or T wave changes noted to suggest ischemia and at peak infusion nonspecific ST changes were noted which did not meet the criteria for ischemia. No clinical angina is noted. The final blood pressure was 100/50 mmHg. Myocardial perfusion protocol. 12 mCi of technetium 99m sestamibi was injected at rest. 0.4 mg of regadenoson was infused per usual protocol. At peak infusion 36 mCi of technetium 99m sestamibi was injected stress images were obtained stress and rest images were reconstructed and compared in the short axis vertical long and horizontal long axis. Gated images were also obtained. Perfusion SPECT analysis: Review of the stress images demonstrate normal uptake of tracer noted in all areas of the myocardium. The resting images similar demonstrated normal uptake of tracer noted in all areas of t he myocardium. No areas of reversibility are noted to suggest ischemia and no previous infarct is noted. Gated SPECT analysis: The gated ejection fraction is 83%. Conclusion: Normal pharmacologic myocardial perfusion stress test. Preserved ejection fraction. 10/27/241657 Date Yamil Merino MD CC: Dr. Yamil Merino MD; Dr. Sofy Richter DO Date Dictated: 10/27/241656 Date Transcribed: 10/27/241656 911 Emergency Dispatcher: [place] Signed Normal [facility] Cardiology Visit Reporton Cardiology Visit Report [facility] [place] [address] OFFICE VISIT Date of Service: 10/10/24 MR#: [id number] Acct: [id number] Name: ALEXEI FOWLER Rep #: [id number] : 1965 Provider: Dr. Yamil Merino MD Age/Sex: 59/F Location: [facility] Status: Signed HPI HPI History of Present Illness Details: ALEXEI FWOLER, is a 58 F who presents to the office today for a follow up visit. She as you remember is a lady who presented with a non-ST elevation myocardial infarction. She underwent a cardiac catheterization which demonstrated moderate disease in the circumflex artery, with 50% stenosis. She was also noted to have runs of supraventricular tachyarrhythmia which converted spontaneously she was put on a beta-doretha which she is tolerated. She occasionally has breakthroughs. Due to her low blood pressure she has not been able to tolerate additional doses of beta-doretha. She has successfully discontinued smoking for almost 5 years now. Her weight has overall been stable. She says that occasionally she does get some chest pressure. She denies chest, arm, jaw, or neck discomfort. Her exercise tolerance is stable. She denies symptoms of CHF, palpitations, lightheadedness, dizziness, near syncope, or syncopal episodes. She denies edema or claudication issues. She denies orthopnea, PND, fever, chills, blood in urine, blood in stool, or myalgia. She does note fatigue, weakness, and shortness of breath with activity. Her SOB is not new or worsening. 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 Accompanied by: Son Is patient in pain?: No Allergies amoxicillin Allergy (Severe, Verified 10/10/24 14:00) Shortness of breath azithromycin Allergy (Severe, Verified 10/10/24 14:00) Shortness of breath clindamycin Allergy (Severe, Verified 10/10/24 14:00) Shortness of breath doxycycline Allergy (Severe, Verified 10/10/24 14:00) Shortness of breath erythromycin lactobionate (From Erythrocin) Allergy (Severe, Verified 10/10/24 14:00) Shortness of breath Penicillins Allergy (Severe, Verified 10/10/24 14:00) Shortness of breath Sulfa (Sulfonamide Antibiotics) Allergy (Severe, Verified 10/10/24 14:00) Shortness of breath sulfamethoxazole (From Bactrim) Allergy (Severe, Verified 10/10/24 14:00) Shortness of breath trimethoprim (From Bactrim) Allergy (Severe, Verified 10/10/24 14:00) Shortness of breath Antihistamines - Alkylamine Allergy (Verified 10/10/24 14:00) doesn't for days Antihistamines - Ethanolamine Allergy (Verified 10/10/24 14:00) NEEDS FOLLOW-UP Antihistamines - Ethylenediamine Allergy (Verified 10/10/24 14:00) NEEDS FOLLOW-UP Antihistamines - Piperidine Allergy (Verified 10/10/24 14:00) NEEDS FOLLOW-UP meloxicam (From Mobic) Allergy (Verified 10/10/24 14:00) Chest tightness tramadol Allergy (Verified 10/10/24 14:00) Unknown codeine (From Tylenol-Codeine #3) Adverse Reaction (Verified 10/10/24 14:00) Nausea/Vom/Diarrhea gabapentin Adverse Reaction (Verified 10/10/24 14:00) Other terbutaline (From Brethine) Adverse Reaction (Verified 10/10/24 14:00) Other Medications ???Medication ???Instructions ???Recorded ???Confirmed ???Type lamotrigine 200 mg disintegrating 200 mg PO BID BIPOLAR 04/15/18 10/10/24 History tablet aspirin 81 mg chewable tablet 81 mg PO DAILY 04/21/18 10/10/24 Rx butalbital-acetaminop hen-caffeine 1 tab PO PRN PRN Migraine Symptoms 03/04/19 10/10/24 History 50 mg-325 mg-40 mg tablet 30 days #90 tabs promethazine 25 mg tablet 1 tab PO PRN PRN Nausea 30 days 03/04/19 10/10/24 History #90 tabs pantoprazole 40 mg tablet,delayed 40 mg PO BID 02/03/21 10/10/24 History release ezetimibe 10 mg tablet 10 mg PO DAILY cholesterol 10/06/21 10/10/24 History levothyroxine 125 mcg tablet 125 mcg PO DAILY 01/28/22 10/10/24 History nystatin 100,000 unit/mL oral 5 ml mucous membrane TID PRN thrush 01/28/22 10/10/24 History suspension fluoxetine 20 mg capsule 40 mg PO BID 04/18/22 10/10/24 History diazepam 5 mg tablet 5 mg PO TID Anxiety 01/29/23 10/10/24 History atenolol 25 mg tablet See Rx Instructions .Route 02/23/23 10/10/24 Rx .COMPLEX #90 TABLETS cholecalciferol (vitamin D3) 1,250 50,000 unit PO QWEEK 07/27/23 10/10/24 History mcg (50,000 unit) capsule furosemide 20 mg tablet 20 mg PO DAILY 07/27/23 10/10/24 History albuterol sulfate 2.5 mg/3 mL 2.5 mg (3 mL) inhalation Q4HWA.RT 08/27/24 10/10/24 Rx (0.083 %) solution for nebulizati (more content not included)... Normal [facility] Colonoscopy Reporton 024 Colonoscopy Report [facility] Medical Records Department [address] [place] [address] Colonoscopy Report MR#: [id number] Acct: [id number] Name: ALEXEI FOWLER Rep #: [id number] : 1965 59 From: Miguel Angel Almendarez MD PCP: Dr. Sofy Richter, DO Status:[place] [facility] Patient Name: Alexei Fowler Procedure Date: 10/03/2024 9:30 AM Date of : 1965 Age: 59 Procedure: Colonoscopy Indications: Follow-up of diverticulitis Providers: Miguel Angel Almendarez MD Referring MD: Sofy Richter Medicines: Propofol per Anesthesia Patient Profile: Last Colonoscopy: several years ago. Complications: No immediate complications. Procedure: Pre-Anesthesia Assessment: - Prior to the procedure, a History and Physical was performed, and patient medications and allergies were reviewed. The patient's tolerance of previous anesthesia was also reviewed. The risks and benefits of the procedure and the sedation options and risks were discussed with the patient. All questions were answered, and informed consent was obtained. Prior Anticoagulants: The patient has taken no anticoagulant or antiplatelet agents. After reviewing the risks and benefits, the patient was deemed in satisfactory condition to undergo the procedure. After I obtained informed consent, the scope was passed under direct vision. Throughout the procedure, the patient's blood pressure, pulse, and oxygen saturations were monitored continuously. The pediatric colonoscope was introduced through the anus and advanced to the cecum, identified by appendiceal orifice and ileocecal valve. The colonoscopy was performed without difficulty. The patient tolerated the procedure well. The quality of the bowel preparation was good. The ileocecal valve, appendiceal orifice, and rectum were photographed. Scope In: 9:43:59 AM Scope Withdrawal Time 0 hours 6 minutes 2 seconds Scope Out: 9:57:35 AM Total Procedure Duration Time 0 hours 13 minutes 36 seconds Findings: The entire examined colon appeared normal on direct and retroflexion views. Impression: - The entire examined colon is normal on direct and retroflexion views. - No specimens collected. Recommendation: - Discharge patient to home. - Resume previous diet. - Continue present medications. - Repeat colonoscopy in 10 years for screening purposes. - Return to my office at appointment to be scheduled. Procedure Code(s): --- Professional --- 39997, Colonoscopy, flexible; diagnostic, including collection of specimen(s) by brushing or washing, when performed (separate procedure) Diagnosis Code(s): --- Professional --- K57.32, Diverticulitis of large intestine without perforation or abscess without bleeding CPT copyright 2021 [employer]. All rights reserved. The codes documented in this report are preliminary and upon fretted instrument maker hand review may be revised to meet current compliance requirements. Miguel Angel Almendarez MD 10/03/2024 10:03:13 AM This report has been signed electronically. Number of Addenda: 0 Note Initiated On: 10/03/2024 9:30 AM 10/03/24 1003 Date Miguel Angel Almendarez MD Cosigner Signature: Date (if indicated) CC: Dr. Miguel Angel Almendarez MD; Dr. Sofy Richter DO Date Dictated: 10/03/24929 Date Transcribed: 911 Emergency Dispatcher: LULU Signed [facility] MR/POSTOP.Shantal 10-03-2024 MR/POSTOP.[facility] Medical Records Department [address] [place] [address] Anesthesia Postop Eval I 10/03/24 1007 MR#: [id number] Acct: [id number] Name: ALEXEI FOWLER Rep #: [id number] : 1965 59 From: Pascual Chino PCP: Dr. Sofy Richter, Status:REG SDC Y Race: C Location: [facility]- Anesthesia: Postop Eval I Current Vital Signs Temperature: 97.1 F Pulse Rate: 84 Blood Pressure: 107/71 Respiratory Rate: 16 Pulse Ox: 98 Oxygen Delivery Method: Room Air Assessment Airway patent: Yes Spontaneous unlabored respirations: Yes Mental status: Asleep nausea: No Vomiting: No Anesthesia Complication: No Fluid Hydration Crystalloid volume administer (ml): 40 Total IV fluid infused: 40 Progress Note Anesthesia document: Postop Eval 1 completed: Yes 10/03/24 1009 Date Pascual Garciaigner Signature: Date CC: Signed Normal [facility] MR/[id number] 10-03-2024 [facility] Medical Records Department [address] [place] [address] Anesthesia Postop Eval II 10/03/24 1033 MR#: [id number] Acct: [id number] Name: ALEXEI FOWLER Ismael Rep #: [id number] : 1965 59 From: Sonny Bains MD PCP: Dr. Sofy Richter, DO Status:REG SDC Y Race: C Location: [place] [address] Anesthesia Postop Eval I Sum Postop Eval Completion status Anesthesia document: Postop Eval 1 completed: Yes Anesthesia Postop Eval I Summary Anesthesia Postop Eval I Summary: Anesthesia Postop Eval I: Assessment Summary Airway patent Yes 10/03/24 10:08 [email or web address] Spontaneous unlabored Yes 10/03/24 10:08 [email or web address] respirations Mental status Asleep 10/03/24 10:08 [email or web address] nausea No 10/03/24 10:08 [email or web address] Vomiting No 10/03/24 10:08 [email or web address] Anesthesia Postop Eval I: Fluid Summary Crystalloid volume administer 40 10/03/24 10:08 [email or web address] (ml) Colloids volume administered ( ml) Blood Product volume administered (ml) Total IV fluid infused 40 10/03/24 10:08 [email or web address] Anesthesia Postop Eval I: Summary Notes Anesthesia Complication No 10/03/24 10:08 [email or web address] Anesthesia Complication Comment: Post-operative progress note Anesthesia: Postop Eval II Evaluation Mental status: Awake Pain Level: 0 nausea: No Vomiting: No 10/03/24 1033 Date Sonny Norris Signature: Date CC: Signed Normal [facility] Low Dose CT Lung Screeningon 09-26-[address] Lung Screening [facility] Imaging Services [address] [place] [id number] Lung Screening MR#: [id number] Acct: [id number] Name: ALEXEI FOWLER Rep #: [id number] : 1965 F 59 From: Justin Oh MD PCP: Dr. Sofy Richter, [facility]: Low Dose CT Lung Screening Date of Exam: 09/26 Exam# [id number] Ordering Dr: Sarah Pat NP WAXER TENDER-C [id number] EXAM: CT CHEST WITHOUT INTRAVENOUS CONTRAST CLINICAL INDICATION: smoker TECHNIQUE: Helically acquired images were obtained of the chest without intravenous contrast. This CT exam was performed using one or more of the following dose reduction techniques: automated exposure control, adjustment of the mA and/or kV according to patient size, and/or use of iterative reconstruction technique. RADIATION DOSE: CTDIvol = 3.02 mGy, DLP = 93.27 mGy-cm COMPARISON: CT chest 09/19/2023 FINDINGS: LUNGS AND PLEURAL SPACES: Moderate centrilobular emphysematous changes. No mass. No consolidation or edema. No pleural effusion or thickening. No pneumothorax. HEART: Coronary artery calcifications. Heart size is normal. No pericardial effusion. MEDIASTINUM: Unremarkable. No mediastinal or hilar adenopathy. Esophagus is unremarkable. No hiatal hernia. THYROID: Unremarkable. No thyroid lesions. BONES/JOINTS: Unremarkable. No suspicious lytic or blastic abnormality. SOFT TISSUES: Unremarkable. VASCULATURE: No dilation of the thoracic aorta. CT/Low Dose CT Lung Screening IMPRESSION: 1. No pulmonary nodules. ACR Lung CT Screening Reporting And Data System (Lung-RADS) score: 1S - Additional clinically significant or potentially clinically significant findings are described. Recommend continued annual screening with a low-dose CT (LDCT) in 12 months. 2. Moderate centrilobular emphysematous changes. 3. Coronary artery calcifications. Electronically Signed: Justin Oh MD at 3:10 EST , CC: LALITHA Pat; Dr. Sofy Richter DO 911 Emergency Dispatcher: Signed [facility] MR/PAT.NEHEMIASon 09-26-2024 MR/PAT.[facility] Medical Records Department [address] [place] [address] PAT - Anesthesia 09/26/24 1545 MR#: [id number] Acct: [id number] Name: ALEXEI FOWLER Rep #: [id number] : 1965 59 From: Srinivasa Adan MD PCP: Dr. 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 When Was Last Pacemaker Check QUESTION #4 FULL TEXT: You/Your Family Experience fever (hyperthermia) with Anesthesia Last Oral Intake Last Oral intake: Last Oral Intake NPO since Meds taken in AM with sips of water? Meds patient instructed to take am of surgery PONV PONV - wildlife technician: PONV - wildlife technician Female Yes 09/26/24 15:09 HX of Motion Sickness No 09/26/24 15:09 HX of N/V After Surgery No 09/26/24 15:09 Non-Smoker Yes 09/26/24 15:09 Duration of Surgery greater No 09/26/24 15:09 than 60 minutes Number of Risk Factors 2 09/26/24 15:09 PONV Score Moderate Risk 09/26/24 15:09 Height Weight Height Weight: Anesthesia: Height Weight Height 5 ft 6 in 07/01/24 13:13 Respiratory Assessment Respiratory Assessment - wildlife technician: Respiratory Tract Infection Hx - wildlife technician Hx Respiratory Tract Infection No 09/26/24 15:09 STOP Sleep Apnea STOP Sleep Apnea - wildlife technician: STOP Sleep Apnea - wildlife technician Hx Hypertension No 09/26/24 15:09 Hx Sleep Apnea No 09/26/24 15:09 CPAP BIPAP Do you snore loudly (louder No 09/26/24 15:09 than talking or can be heard Do you often feel tired/ No 09/26/24 15:09 fatigued/ sleepy during daytime? Has anyone observed you stop No 09/26/24 15:09 breathing during sleep? STOP Results Negative 09/26/24 15:09 QUESTION #5 FULL TEXT : Do you snore loudly (louder than talking or can be heard through closed doors)? Tobacco Use History Tobacco Use History - wildlife technician: Tobacco Use History - wildlife technician Tobacco Use Smoking Status Former smoker 09/26/24 15:09 Hx Tobacco Use No 09/26/24 15:09 Years Smoking Packs Smoked per Day Smoking Cessation Date was No - quit smoking greater 09/26/24 15:09 within the last 15 years than 15 years ago Hx Smoking Cessation Date 10/08/17 09/26/24 15:09 Hx Smoking Cessation No 09/26/24 15:09 Counseling Hematologic Medial History Hematologic Hx - wildlife technician: Hematologic Medical Hx - documentation analyst Hx of Blood Transfusion No 09/26/24 15:09 Hx of Transfusion in last 3 No 09/26/24 15:09 Months Date of Last Transfusion (if within last 3 months) Ever experience any problems No 09/26/24 15:09 with transfusion(s)? Specify any problems Hx of Preganancy in last 3 N/A 09/26/24 15:09 Months Nurse Filling Out Transfusion NBUCHER 09/26/24 15:09 Questions: Date: 09/26/24 09/26/24 15:09 Time: 15:09 09/26/24 15:09 Patient unable to answer at this time (ie. confused, unrespo /Reproductio n History /Reproductiv e History - wildlife technician: /Reproductiv e Hx- wildlife technician Hx Now Gestational Age (in weeks): EDC: Hx Hx Para Hx Section SAB PFSH Medical History Wears dentures Wears glasses Post-menopausal Bipolar disorder Anxiety Thyroid disease Excessive bleeding Migraine headache Injury of head and neck Difficulty swallowing History of diverticulitis Gastric reflux Former smoker On home oxygen therapy History of pain when walking History of edema History of echocardiogram History of stress test Cardiology follow-up encounter History of irregular heartbeat Depression Myocardial infarct COVID-19 (09/2021) Encounter for screening for COVID-19 Sore throat Cough Obesity History of non-ST elevation myocardial infarction (NSTEMI) (04/16/18) Bronchitis Acute on chronic respiratory failure with hypoxia and hypercapnia Asthma-COPD overlap syndrome History of sepsis Chronic neck and back pain Limb weakness Difficulty balancing Asthma COPD (chronic obstruc (more content not included)... Normal [facility] Urine Cultureon 09-20-2024 URC Klebsiella pneumonia e sp pneum [place] Count 50,000-80,000 Klebsiella pneumoniae sp pneum: REACTION Ampicillin Islt CR Ampicillin+Sulbac Islt CR 4 S Cefepime Islt CR <=0.12 S cefTRIAXone Islt CR <=0.25 S Ciprofloxacin Islt CR <=0.06 S B-Lactamase Extended Susc Islt NEG Gentamicin Islt CR <=1 S levoFLOXacin Islt CR <=0.12 S Meropenem Islt CR <=0.25 S Nitrofurantoin Islt CR 32 S Pip+Tazo Islt RC <=4 S TMP SMX Islt CR <=20 S Normal [facility] Comment on above: Performed By: #### M [id number] ####[facility] [id number] [place], [address] Urine cultureOrdered By: June Richter on 09-18-2024 Bacteria identified Cx Nom (U) Klebsiella pneumoniae sp pneum Abnormal [facility] Pulmonary Visit Reporton Pulmonary Visit Report [facility] [address] [place] [address] OFFICE VISIT Date of Service: 08/27/24 MR#: [id number] Acct: [id number] Name: ALEXEI FOWLER Rep #: [id number] : 1965 Provider: LALITHA Pat Age/Sex: 59/F Location: [facility] Status: Signed Assessment and Plan Assessment and Plan (1) Asthma-COPD overlap syndrome: Status: Chronic Comment: FEV1 64% Plan: Stable, no signs of exacerbation of asthma/COPD overlap today. Not currently requiring maintenance medications. She prefers to avoid steroids, including ICS. No additional testing at this time. Contact the office with any signs of new or worsening symptoms. Repeating pulmonary function test and walking oximetry to evaluate baseline change. Follow-up in October or November to discuss test results. (2) Smoking greater than 30 pack years: Status: Chronic Plan: Encourage ongoing smoking cessation. Repeat LDCT due in September 2024, ordered previously. Follow- up in the office in October to discuss test results. Orders: Orders Pulmonary Function Test (Comp) 09/11/24 J44.9 - Chronic obstructive pulmonary disease, unspecified Simple Pulmonary Exercise Test 09/15/24 J44.9 - Chronic obstructive pulmonary disease, unspecified Medications: Refilled albuterol sulfate 2.5 mg (3 mL) inhalation Q4HWA.RT 180 mL 6RF F17.210 - Nicotine dependence, cigarettes, uncomplicated albuterol sulfate 90 mcg/actuation 2 puffs inhalation Q4H PRN PRN #1 11RF Wheezing F17.210 - Nicotine dependence, cigarettes, uncomplicated Plan Details Follow Up: 2 Months (LMR) HPI HPI Comments Details: This patient presents to the office today for follow-up of her asthma/COPD overlap syndrome. She is ambulatory, currently on room air and accompanied today by her son. She has not recently required any antibiotics or prednisone for any breathing problems. She has not been to the emergency room or urgent care for any respiratory complaints since her last office visit. She occasionally uses the Flonase. She continues compliance with no smoking. She is using albuterol for exercise. She has slight shortness of breath on exertion. She denies any cough, sputum production or hemoptysis. She denies any wheezing, chest tightness, chest pain or palpitations. She also denies any fever, chills or body aches. Former smoker, quit 2017. C/o SOB with exertion, occasional wheezing, moist productive cough with clear/frothy sputum, occasional sinus and chest congestion. Denies chest pain or tightness. She does have oxygen at home 2LPM via NC at night and for naps. 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: No DME Vendor: oxygen - [employer] Accompanied by: Self Allergies amoxicillin Allergy (Severe, Verified 08/27/24 11:31) Shortness of breath azithromycin Allergy (Severe, Verified 08/27/24 11:31) Shortness of breath clindamycin Allergy (Severe, Verified 08/27/24 11:31) Shortness of breath doxycycline Allergy (Severe, Verified 08/27/24 11:31) Shortness of breath erythromycin lactobionate (From Erythrocin) Allergy (Severe, Verified 08/27/24 11:31) Shortness of breath Penicillins Allergy (Severe, Verified 08/27/24 11:31) Shortness of breath Sulfa (Sulfonamide Antibiotics) Allergy (Severe, Verified 08/27/24 11:31) Shortness of breath sulfamethoxazole (From Bactrim) Allergy (Severe, Verified 08/27/24 11:31) Shortness of breath trimethoprim (From Bactrim) Allergy (Severe, Verified 08/27/24 11:31) Shortness of breath Antihistamines - Alkylamine Allergy (Verified 08/27/24 11:31) doesn't for days Antihistamines - Ethanolamine Allergy (Verified 08/27/24 11:31) NEEDS FOLLOW-UP Antihistamines - Ethylenediamine Allergy (Verified 08/27/24 11:31) NEEDS FOLLOW-UP Antihistamines - Piperidine Allergy (Verified 08/27/24 11:31) NEEDS FOLLOW-UP meloxicam (From Mobic) Allergy (Verified 08/27/24 11:31) Chest tightness tramadol Allergy (Verified 08/27/24 11:31) Unknown codeine (From Tylenol-Codeine #3) Adverse Reaction (Verified 08/27/24 11:31) Nausea/Vom/Diarrhea gabapentin Adverse Reaction (Verified 08/27/24 11:31) Other terbutaline (From Brethine) Adverse Reaction (Verified 08/27/24 11:31) Other Medications ???Medication ???Instructions ???Recorded ???Confirmed ???Type lamotrigine 200 mg disintegrating 200 mg PO (more content not included)... Normal [facility] Surgery Visit Reporton 07-01 Surgery Visit Report [facility] [address] [place] [address] OFFICE VISIT Date of Service: 07/01/24 MR#: [id number] Acct: [id number] Name: ALEXEI FOWLER Rep #: [id number] : 1965 Provider: Dr. 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 Required: No Is patient in pain?: No Allergies amoxicillin Allergy (Severe, Verified 07/01/24 13:14) Shortness of breath azithromycin Allergy (Severe, Verified 07/01/24 13:14) Shortness of breath clindamycin Allergy (Severe, Verified 07/01/24 13:14) Shortness of breath doxycycline Allergy (Severe, Verified 07/01/24 13:14) Shortness of breath erythromycin lactobionate (From Erythrocin) Allergy (Severe, Verified 07/01/24 13:14) Shortness of breath Penicillins Allergy (Severe, Verified 07/01/24 13:14) Shortness of breath Sulfa (Sulfonamide Antibiotics) Allergy (Severe, Verified 07/01/24 13:14) Shortness of breath sulfamethoxazole (From Bactrim) Allergy (Severe, Verified 07/01/24 13:14) Shortness of breath trimethoprim (From Bactrim) Allergy (Severe, Verified 07/01/24 13:14) Shortness of breath Antihistamines - Alkylamine Allergy (Verified 07/01/24 13:14) doesn't for days Antihistamines - Ethanolamine Allergy (Verified 07/01/24 13:14) NEEDS FOLLOW-UP Antihistamines - Ethylenediamine Allergy (Verified 07/01/24 13:14) NEEDS FOLLOW-UP Antihistamines - Piperidine Allergy (Verified 07/01/24 13:14) NEEDS FOLLOW-UP meloxicam (From Mobic) Allergy (Verified 07/01/24 13:14) Chest tightness tramadol Allergy (Verified 07/01/24 13:14) Unknown codeine (From Tylenol-Codeine #3) Adverse Reaction (Verified 07/01/24 13:14) Nausea/Vom/Diarrhea gabapentin Adverse Reaction (Verified 07/01/24 13:14) Other terbutaline (From Brethine) Adverse Reaction (Verified 07/01/24 13:14) Other Medications ???Medication ???Instructions ???Recorded ???Confirmed ???Type lamotrigine 200 mg disintegrating 200 mg PO BID seizure 04/15/18 07/01/24 History tablet aspirin 81 mg chewable tablet 81 mg PO DAILY 04/21/18 07/01/24 Rx butalbital-acetaminop hen-caffeine 1 tab PO PRN PRN Migraine Symptoms 03/04/19 07/01/24 History 50 mg-325 mg-40 mg tablet 30 days #90 tabs promethazine 25 mg tablet 1 tab PO PRN PRN Nausea 30 days 03/04/19 07/01/24 History #90 tabs pantoprazole 40 mg tablet,delayed 40 mg PO BID 02/03/21 07/01/24 History release ezetimibe 10 mg tablet 10 mg PO DAILY cholesterol 10/06/21 07/01/24 History levothyroxine 125 mcg tablet 125 mcg PO DAILY 01/28/22 07/01/24 History nystatin 100,000 unit/mL oral 5 ml mucous membrane TID PRN thrush 01/28/22 07/01/24 History suspension fluoxetine 20 mg capsule 40 mg PO BID 04/18/22 07/01/24 History diazepam 5 mg tablet 5 mg PO TID Anxiety 01/29/23 07/01/24 History atenolol 25 mg tablet See Rx Instructions .Route 02/23/23 07/01/24 Rx .COMPLEX #90 TABLETS cholecalciferol (vitamin D3) 1,250 50,000 unit PO QWEEK 07/27/23 07/01/24 History mcg (50,000 unit) capsule furosemide 20 mg tablet 20 mg PO DAILY 07/27/23 07/01/24 History potassium chloride 20 mEq 20 meq PO DAILY 07/27/23 07/01/24 History tablet,extended release albuterol sulfate 2.5 mg/3 mL 2.5 mg (3 mL) inhalation Q4HWA.RT 07/31/23 07/01/24 Rx (0.083 %) solution for nebulization #180 mL albuterol sulfate 90 mcg/actuation 2 puff inhalation Q4H PRN PRN 07/31/23 07/01/24 Rx aerosol inhaler Wheezing ##1 sucralfate 100 mg/mL oral 10 ml PO .QID 06/25/24 07/01/24 History suspension Have you fallen in the past year?: No PFSH Medical History Depression Myocardial infarct COVID-19 (09/2021) Encounter for screening for COVID-19 Sore throat Cough Obesity History of non-ST elevation myocardial infarction (NSTEMI) (04/16/18) Bronchitis Acute on chronic respiratory failure with hypoxia and hypercapnia Asthma-COPD overlap syndrome History of sepsis Chronic neck and back pain Limb weakness Difficulty balancing Asthma COPD (chronic obstructive pulmonary disease) Severe headache Stomach ulcer Arthritis Hypersomnia, unspecified Diverticula of colon Acute diastolic (congestive) heart failure (04/18/18) Atherosclerosis of coronary artery of [place] heart without angina pectoris Hypothyroidism GERD (gastroesophageal reflux disease) Paroxysmal supraventricular tachycardia Bipolar disorder Chronic back pain (more content not included)... Normal [facility] Gastroenterology Visit Repor ton 06-25-[address] [facility] [address] [place] [address] OFFICE VISIT Date of Service: 06/25/24 MR#: [id number] Acct: [id number] Name: ALEXEI FOWLER Rep #: [id number] : 1965 Provider: Adalid Shaw DO Age/Sex: 59/F Location: [facility] Status: Signed Intake Vital Signs 02/23/24 14:45 Height 5 ft 6 in Intake Visit Reasons: Following CT Scan Allergies amoxicillin Allergy (Severe, Verified 02/23/24 14:48) Shortness of breath azithromycin Allergy (Severe, Verified 02/23/24 14:48) Shortness of breath clindamycin Allergy (Severe, Verified 02/23/24 14:48) Shortness of breath doxycycline Allergy (Severe, Verified 02/23/24 14:48) Shortness of breath erythromycin lactobionate (From Erythrocin) Allergy (Severe, Verified 02/23/24 14:48) Shortness of breath Penicillins Allergy (Severe, Verified 02/23/24 14:48) Shortness of breath Sulfa (Sulfonamide Antibiotics) Allergy (Severe, Verified 02/23/24 14:48) Shortness of breath sulfamethoxazole (From Bactrim) Allergy (Severe, Verified 02/23/24 14:48) Shortness of breath trimethoprim (From Bactrim) Allergy (Severe, Verified 02/23/24 14:48) Shortness of breath Antihistamines - Alkylamine Allergy (Verified 02/23/24 14:48) doesn't for days Antihistamines - Ethanolamine Allergy (Verified 02/23/24 14:48) NEEDS FOLLOW-UP Antihistamines - Ethylenediamine Allergy (Verified 02/23/24 14:48) NEEDS FOLLOW-UP Antihistamines - Piperidine Allergy (Verified 02/23/24 14:48) NEEDS FOLLOW-UP meloxicam (From Mobic) Allergy (Verified 02/23/24 14:48) Chest tightness tramadol Allergy (Verified 02/23/24 14:48) Unknown codeine (From Tylenol-Codeine #3) Adverse Reaction (Verified 02/23/24 14:48) Nausea/Vom/Diarrhea gabapentin Adverse Reaction (Verified 02/23/24 14:48) Other terbutaline (From Brethine) Adverse Reaction (Verified 02/23/24 14:48) Other Medications ???Medication ???Instructions ???Recorded ???Confirmed ???Type lamotrigine 200 mg disintegrating 200 mg PO BID seizure 04/15/18 06/25/24 History tablet aspirin 81 mg chewable tablet 81 mg PO DAILY 04/21/18 06/25/24 Rx butalbital-acetaminop hen-caffeine 1 tab PO PRN PRN Migraine Symptoms 03/04/19 06/25/24 History 50 mg-325 mg-40 mg tablet 30 days #90 tabs promethazine 25 mg tablet 1 tab PO PRN PRN Nausea 30 days 03/04/19 06/25/24 History #90 tabs pantoprazole 40 mg tablet,delayed 40 mg PO BID 02/03/21 06/25/24 History release ezetimibe 10 mg tablet 10 mg PO DAILY cholesterol 10/06/21 06/25/24 History levothyroxine 125 mcg tablet 125 mcg PO DAILY 01/28/22 06/25/24 History nystatin 100,000 unit/mL oral 5 ml mucous membrane TID PRN thrush 01/28/22 06/25/24 History suspension fluoxetine 20 mg capsule 40 mg PO BID 04/18/22 06/25/24 History diazepam 5 mg tablet 5 mg PO TID Anxiety 01/29/23 06/25/24 History atenolol 25 mg tablet See Rx Instructions .Route 02/23/23 06/25/24 Rx .COMPLEX #90 TABLETS cholecalciferol (vitamin D3) 1,250 50,000 unit PO QWEEK 07/27/23 06/25/24 History mcg (50,000 unit) capsule furosemide 20 mg tablet 20 mg PO DAILY 07/27/23 06/25/24 History potassium chloride 20 mEq 20 meq PO DAILY 07/27/23 06/25/24 History tablet,extended release albuterol sulfate 2.5 mg/3 mL 2.5 mg (3 mL) inhalation Q4HWA.RT 07/31/23 06/25/24 Rx (0.083 %) solution for nebulization #180 mL albuterol sulfate 90 mcg/actuation 2 puff inhalation Q4H PRN PRN 07/31/23 06/25/24 Rx aerosol inhaler Wheezing ##1 sucralfate 100 mg/mL oral 10 ml PO .QID 06/25/24 06/25/24 History suspension PFSH Medical History Acute diastolic (congestive) heart failure (04/18/18) Acute on chronic respiratory failure with hypoxia and hypercapnia Arthritis Asthma Asthma-COPD overlap syndrome Atherosclerosis of coronary artery of [place] heart without angina pectoris Bipolar disorder Bronchitis Chronic back pain Chronic neck and back pain COPD (chronic obstructive pulmonary disease) Cough COVID-19 (09/2021) Depression Difficulty balancing Diverticula of colon Encounter for screening for COVID-19 GERD (gastroesophageal reflux disease) History of non-ST elevation myocardial infarction (NSTEMI) (04/16/18) History of sepsis Hypersomnia, unspecified Hypoglycemia Hypokalemia Hypothyroidism Limb weakness Myocardial infarct Obesity Paroxysmal supraventricular tachycardia Severe headache Sore throat Stomach ulcer TMJ (temporomandibular joint syndrome) Urinary incontinence Surgical History History of appendectomy History of section History of cholecystectomy History of dilatation and curettage History of endometrial ablation History of left heart catheterization (04/18/18 (more content not included)... Normal [facility] CBC W/Diff, Automatedon Absolute Lymph 2.00 X10 3/uL Normal 0.83-4.51 [facility] Comment on above: Performed By: #### L 500.4050, L100.0100, L501.09210, L506.0400, L501.9520 ####[facility] [address] [place], [address] Absolute Neut 3.0 X10 3/uL Normal 2.0-7.7 [facility] Comment on above: Performed By: #### L 500.4050, L100.0100, L501.24374, L506.0400, L501.9520 ####[facility] [address] [place], [address] Basophils/100 WBC (Bld) 0.7 % Normal 0-1 [facility] Comment on above: Performed By: #### L 500.4050, L100.0100, L501.58172, L506.0400, L501.9520 ####[facility] [address] [place], [address] Eosinophils/100 WBC (Bld) 1.4 % Normal 0-5 [facility] Comment on above: Performed By: #### L 500.4050, L100.0100, L501.29661, L506.0400, L501.9520 ####[facility] [address] [place], [address] Erythrocyte distribution width (RBC) [Ratio] 12.0 % Normal 11.6-14.6 [facility] Comment on above: Performed By: #### L 500.4050, L100.0100, L501.50621, L506.0400, L501.9520 ####[facility] [address] [place], [address] Hematocrit (Bld) [Volume fraction] 38.3 % Normal 37-47 [facility] Comment on above: Performed By: #### L 500.4050, L100.0100, L501.78815, L506.0400, L501.9520 ####[facility] [address] [place], [address] Hemoglobin (Bld) [Mass/Vol] 12.4 g/dL Normal 12.0-15. 0 [facility] Comment on above: Performed By: #### L 500.4050, L100.0100, L501.15840, L506.0400, L501.9520 ####[facility] [address] [place], [address] IG% 0.400 Normal 0.0-0.9 [facility] Comment on above: Result Comment: IG% - Immature Granulocytes (promyelocytes, myelocytes and metamyelocytes) > 1% indicates that a LEFT SHIFT is Present. Performed By: #### L 500.4050, L100.0100, L501.49997, L506.0400, L501.9520 ####[facility] [address] [place], [address] Lymphocytes/100 WBC (Bld) 35.5 % Normal 19-41 [facility] Comment on above: Performed By: #### L 500.4050, L100.0100, L501.38035, L506.0400, L501.9520 ####[facility] [address] [place], [address] MCH (RBC) [Entitic mass] 29.9 pg Normal 27.0-32.0 [facility] Comment on above: Performed By: #### L 500.4050, L100.0100, L501.15767, L506.0400, L501.9520 ####[facility] [address] [place], [address] MCHC (RBC) [Mass/Vol] 32.4 g/dL Normal 32-36 [facility] Comment on above: Performed By: #### L 500.4050, L100.0100, L501.49867, L506.0400, L501.9520 ####[facility] [address] [place], [address] MCV (RBC) [Entitic vol] 92.3 fL Normal 81-99 [facility] Comment on above: Performed By: #### L 500.4050, L100.0100, L501.97245, L506.0400, L501.9520 ####[facility] [address] [place], [address] Monocytes/100 WBC (Bld) 8.7 % Normal 0-10 [facility] Comment on above: Performed By: #### L 500.4050, L100.0100, L501.99659, L506.0400, L501.9520 ####[facility] [address] [place], [address] Neutrophils/100 WBC (Bld) 53.3 % Normal 47-70 [facility] Comment on above: Performed By: #### L 500.4050, L100.0100, L501.35776, L506.0400, L501.9520 ####[facility] [address] [place], [address] Nucleated RBC (Bld) [#/Vol] 0 10*3/uL Normal 0-5 [facility] Comment on above: Performed By: #### L 500.4050, L100.0100, L501.85204, L506.0400, L501.9520 ####[facility] [address] [place], [address] Platelet mean volume (Bld) [Entitic vol] 11.5 fL Normal 6.2-12.0 [facility] Comment on above: Performed By: #### L 500.4050, L100.0100, L501.58424, L506.0400, L501.9520 ####[facility] [address] [place], [address] Platelets (Bld) [#/Vol] 221 10*3/uL Normal 150-450 [facility] Comment on above: Performed By: #### L 500.4050, L100.0100, L501.10598, L506.0400, L501.9520 ####[facility] [address] [place], [address] RBC (Bld) [#/Vol] 4.15 10*6/uL Low 4.2-5.4 [facility] Comment on above: Performed By: #### L 500.4050, L100.0100, L501.06432, L506.0400, L501.9520 ####[facility] [address] [place], [address] RDW SD 40.4 fl Normal 35.1-43.9 [facility] Comment on above: Performed By: #### L 500.4050, L100.0100, L501.12125, L506.0400, L501.9520 ####[facility] [address] [place], [address] WBC (Bld) [#/Vol] 5.6 10*3/uL Normal 4.4-11.0 [facility] Comment on above: Performed By: #### L 500.4050, L100.0100, L501.80833, L506.0400, L501.9520 ####[facility] [address] [place], [address] Comprehensive Metabolic [facility] 06-12-2024 Albumin [Mass/Vol] 3.6 g/dL Normal 3.2-5.0 [facility] Comment on above: Performed By: #### L 500.4050, L100.0100, L501.39175, L506.0400, L501.9520 ####[facility] [address] [place], [address] Albumin/Globulin [Mass ratio] 0.8 {ratio} Low 0.9-2.4 [facility] Comment on above: Performed By: #### L 500.4050, L100.0100, L501.08231, L506.0400, L501.9520 ####[facility] [address] [place], [address] ALK P 130 U/L High 45-117 [facility] Comment on above: Performed By: #### L 500.4050, L100.0100, L501.10081, L506.0400, L501.9520 ####[facility] [address] [place], [address] ALT [Catalytic activity/Vol] 40 U/L Normal 13-56 [facility] Comment on above: Performed By: #### L 500.4050, L100.0100, L501.78422, L506.0400, L501.9520 ####[facility] [address] [place], [address] AST [Catalytic activity/Vol] 37 U/L Normal 15-37 [facility] Comment on above: Performed By: #### L 500.4050, L100.0100, L501.95921, L506.0400, L501.9520 ####[facility] [address] [place], [address] Bilirubin [Mass/Vol] 0.40 mg/dL Normal 0.20-1.00 [facility] Comment on above: Result Comment: For patients on eltrombopag therapy, use of Dimension [place] TBIL is not recommended. Performed By: #### L 500.4050, L100.0100, L501.63695, L506.0400, L501.9520 ####[facility] [address] [place], [address] BUN/CRE 15.2 RATIO Normal 10-20 [facility] Comment on above: Performed By: #### L 500.4050, L100.0100, L501.98410, L506.0400, L501.9520 ####[facility] [address] [place], [address] CA,Total 9.1 mg/dL Normal 8.5-10.1 [facility] Comment on above: Performed By: #### L 500.4050, L100.0100, L501.52149, L506.0400, L501.9520 ####[facility] [address] [place], [address] Chloride [Moles/Vol] 98 mmol/L Normal 98-107 [facility] Comment on above: Performed By: #### L 500.4050, L100.0100, L501.60598, L506.0400, L501.9520 ####[facility] [address] [place], [address] CO2 [Moles/Vol] 28.0 mmol/L Normal 21.0-32.0 [facility] Comment on above: Performed By: #### L 500.4050, L100.0100, L501.71166, L506.0400, L501.9520 ####[facility] [address] [place], [address] Creatinine [Mass/Vol] 0.99 mg/dL Normal 0.55-1.02 [facility] Comment on above: Result Comment: The validity of the calculated GFR GFRAA in patients over 70 years has not been determined. Clinical correlation is essential. Performed By: #### L 500.4050, L100.0100, L501.07803, L506.0400, L501.9520 ####[facility] [address] [place], [address] EST GFR - AA 74 mL/min Normal >60 [facility] Comment on above: Result Comment: Afri can [place] GFR Calc Performed By: #### L 500.4050, L100.0100, L501.55026, L506.0400, L501.9520 ####[facility] [address] [place], [address] GAP 11 Normal 5-15 [facility] Comment on above: Performed By: #### L 500.4050, L100.0100, L501.57417, L506.0400, L501.9520 ####[facility] [address] [place], [address] GFR/1.73 sq M.predicted among non-blacks MDRD (S/P/Bld) [Vol rate/Area] 61 mL/min/{1.73_m2} Normal >60 [facility] Comment on above: Result Comment: Non- GFR Calc Performed By: #### L 500.4050, L100.0100, L501.64460, L506.0400, L501.9520 ####[facility] [address] [place], [address] Globulin (S) [Mass/Vol] 4.4 g/dL High 2.2-4.2 [facility] Comment on above: Performed By: #### L 500.4050, L100.0100, L501.68516, L506.0400, L501.9520 ####[facility] [address] [place], [address] Glucose [Mass/Vol] 97 mg/dL Normal 74-106 [facility] Comment on above: Performed By: #### L 500.4050, L100.0100, L501.06110, L506.0400, L501.9520 ####[facility] [address] [place], [address] Potassium [Moles/Vol] 3.8 mmol/L Normal 3.5-5.1 [facility] Comment on above: Performed By: #### L 500.4050, L100.0100, L501.76711, L506.0400, L501.9520 ####[facility] [address] [place], [address] Sodium [Moles/Vol] 137 mmol/L Normal 136-145 [facility] Comment on above: Performed By: #### L 500.4050, L100.0100, L501.16215, L506.0400, L501.9520 ####[facility] [address] [place], [address] T PROT 8.0 g/dL Normal 6.4-8.2 [facility] Comment on above: Performed By: #### L 500.4050, L100.0100, L501.74674, L506.0400, L501.9520 ####[facility] [address] [place], [address] Urea nitrogen [Mass/Vol] 15 mg/dL Normal 7-18 [facility] Comment on above: Performed By: #### L 500.4050, L100.0100, L501.00235, L506.0400, L501.9520 ####[facility] [address] [place], [address] Free T3on 06-12-2024 Free T3 [Mass/Vol] 2.4 pg/mL Normal 2.18-3.98 [facility] Comment on above: Performed By: #### L 500.4050, L100.0100, L501.77771, L506.0400, L501.9520 ####[facility] [address] [place], [address] T4 Free Directon 06-12-2024 T4 FREE DIRECT 1.00 ng/dL Normal 0.76-1.46 [facility] Comment on above: Performed By: #### L 500.4050, L100.0100, L501.72480, L506.0400, L501.9520 ####[facility] [address] [place], [address] Thyroid Stim Hormone (TSH)on 06-12-2024 TSH 0.839 uIU/mL Normal 0.358-3.740 [facility] Comment on above: Performed By: #### L 500.4050, L100.0100, L501.74340, L506.0400, L501.9520 ####[facility] [address] [place], [place], [address] Abdomen/Pelvis WITH Contrast on 05-14-2024 Abdomen/Pelvis WITH Contrast [facility] Imaging Services [address] [place], [place] [address] Abdomen/Pelvis WITH Contrast MR#: [id number] Acct: [id number] Name: ALEXEI FOWLER Rep #: [id number] : 1965 F 59 From: Crow damon MD PCP: Dr. Sofy Richter DO Status: [facility] CLI Study: Abdomen/Pelvis WITH Contrast Date of Exam: 04/30 Exam# [id number] Ordering Dr: Sofy Richter DO [id number] STUDY: CT ABDOMEN AND PELVIS WITH CONTRAST REASON FOR EXAM: Female, 59 years old. LLQ PAIN RADIATION DOSAGE (If Supplied By Facility): CTDIvol = ( 12.34 ) mGy, DLP = ( 579.38 ) mGycm TECHNIQUE: Transaxial images were obtained from the dome of the diaphragm to the symphysis pubis with oral contrast. Oral and amp; IV Gastrografin and amp; 100mL Isovue-300 was administered. Sagittal and coronal images were reconstructed. Individualized dose optimization techniques were used for this CT. COMPARISON: Comparison made with prior study June 29, 2023. FINDINGS: The visualized lung bases are unremarkable. Coronary artery calcification. Mild degree of central intrahepatic biliary ducts. There are surgical clips in the gallbladder fossa consistent with a prior cholecystectomy. Normal spleen. Normal pancreas. Normal bilateral adrenal glands. Normal right kidney. Normal left kidney. Normal visualized stomach. Normal small intestine. There is diverticulosis, with thickening of the colon wall, and pericolonic inflammation changes consistent with acute diverticulitis. There are surgical clips in the region of the appendix consistent with a prior appendectomy. There is atherosclerotic calcification of the abdominal aorta, without a demonstrated aneurysm. Normal inferior vena cava. Normal retroperitoneum. Normal urinary bladder. Normal abdominal wall. Loss of the normal lumbar lordosis. CT/Abdomen/Pelvis WITH Contrast IMPRESSION: Status post cholecystectomy with mild degree of the central intrahepatic biliary ductal dilatation. Mild degree of sigmoid diverticulitis. Electronically Signed: Crow Gibson MD at 14:22 EDT , CC: Dr. Sofy Richter, DO 911 Emergency Dispatcher: Signed Normal [facility] Laboratory - Microbiology an d Antimicrobial susceptibilityOrdered By: Dannielle Osman on 02-15-2024 SARS-CoV-2 (COVID-19) RNA GUALBERTO+probe Ql (Unsp spec) [facility] Absolute lymphocyte countOrd ered By: Sofy Richter on 02-06-2024 Lymphocytes Auto (Unsp spec) [#/Vol] 2.36 10*3/uL 0.83-4.51 [facility] Automated lymphocyte count a s percentage of total leukocytesOrdered By: Sofy Richter on 02-06-2024 Lymphocytes/100 WBC Auto (Unsp spec) 41.8 % 19-41 [facility] Basophil percentageOrdered B y: Sofy Richter on 02-06-2024 Basophils/100 WBC (Bld) 0.7 % 0-1 [facility] Bilirubin [Mass/Vol] 0.30 mg/dL 0.20-1.00 [facility] Comment on above: For patients on eltr ombopag therapy, use of Dimension [place] TBIL is not recommended. Chloride [Moles/Vol] 101 mmol/L 98-107 [facility] Cholesterol [Mass/Vol] 258 mg/dL <200 [facility] Comment on above: <200 mg/dL Desirable 200-240 mg/dL Borderline >240 mg/dL High Risk Eosinophils/100 WBC (Bld) 1.4 % 0-5 [facility] Glucose [Mass/Vol] 83 mg/dL 74-106 [facility] Hemoglobin (Bld) [Mass/Vol] 11.9 g/dL 12.0-15. 0 [facility] Monocytes/100 WBC (Bld) 7.4 % 0-10 [facility] Neutrophils (Bld) [#/Vol] 2.7 10*3/uL 2.0-7.7 [facility] Neutrophils/100 WBC (Bld) 48.3 % 47-70 [facility] Potassium [Moles/Vol] 4.0 mmol/L 3.5-5.1 [facility] Protein [Mass/Vol] 7.3 g/dL 6.4-8.2 [facility] Sodium [Moles/Vol] 138 mmol/L 136-145 [facility] Triglyceride [Mass/Vol] 267 mg/dL <199 [facility] Comment on above: The drugs N-Acetylcy steine and Metamizole may falsely depress this assay.Serum Triglycerides Reference Interval Normal <150 mg/dL Borderline high 150 - 199 mg/dL High 200 - 499 mg/dL Very High > or = 500 mg/dL WBC (Bld) [#/Vol] 5.6 10*3/uL 4.4-11.0 [facility] Determination of erythrocyte mean corpuscular volume (MCV)Ordered By: Sofy Richter on 02-06-2024 MCV (RBC) [Entitic vol] 91.3 fL 81-99 [facility] Erythrocyte distribution wid th ratioOrdered By: Sofy Richter on 02-06-2024 Erythrocyte distribution width (RBC) [Ratio] 12.1 % 11.6-14.6 [facility] Erythrocyte distribution wid th standard deviationOrdered By: Sofy Richter on 02-06-2024 Erythrocyte distribution width (RBC) [Entitic vol] 40.6 fL 35.1-43.9 [facility] Hematocrit Auto (Bld) [Volum e fraction]Ordered By: Sofy Richter on 02-06-2024 Hematocrit (Bld) [Volume fraction] 36.5 % 37-47 [facility] Immature granulocytes/100 WB C Auto (Bld)Ordered By: Sofy Richter on 02-06-2024 Immature granulocytes/100 WBC (Bld) 0.400 % 0.0-0.9 [facility] Comment on above: IG% - Immature Granu locytes (promyelocytes, myelocytes and metamyelocytes) > 1% indicates that a LEFT SHIFT is Present. Laboratory - Chemistry and C hemistry - challengeOrdered By: Sofy Richter on 02-06-2024 Albumin/Globulin [Mass ratio] 1.0 {ratio} 0.9-2.4 [facility] ALP [Catalytic activity/Vol] 110 U/L 45-117 [facility] ALT [Catalytic activity/Vol] 27 U/L 13-56 [facility] Cholesterol in HDL [Mass/Vol] 42 mg/dL >40 [facility] Comment on above: The drugs N-Acetylcy steine and Metamizole may falsely depress this assay. Reference Range HDL <40 mg/dL Low HDL Cholesterol HDL >or= 60 mg/dL High HDL Cholesterol Cholesterol in LDL [Mass/Vol] 163 mg/dL 0-130 [facility] CO2 [Moles/Vol] 31.0 mmol/L 21.0-32.0 [facility] Globulin (S) [Mass/Vol] 3.6 g/dL 2.2-4.2 [facility] Urea nitrogen/Creatinine [Mass ratio] 14.8 mg/mg 10-20 [facility] Laboratory - Hematology and Cell countsOrdered By: Sofy Richter on 02-06-2024 MCH (RBC) [Entitic mass] 29.8 pg 27.0-32.0 [facility] MCHC (RBC) [Mass/Vol] 32.6 g/dL 32-36 [facility] Nucleated RBC/100 WBC (Bld) [Ratio] 0 % 0-5 [facility] Platelet mean volume (Bld) [Entitic vol] 11.5 fL 6.2-12.0 [facility] Platelets (Bld) [#/Vol] 221 10*3/uL 150-450 [facility] No Panel InformationOrdered By: Sofy Richter on 02-06-2024 Estimated GFR (MDRD) Amer 85 mL/min >60 [facility] Comment on above: GFR Calc Estimated GFR (MDRD) Non-Af Amer 70 mL/min >60 [facility] Comment on above: Non- GFR Calc Free Triiodothyronine (T3) pg/dL 2.4 pg/mL 2.18-3.98 [facility] VLDL Cholesterol 53 mg/dL 5-40 [facility] RBC Auto (Bld) [#/Vol]Ordere d By: Sofy Richter on 02-06-2024 RBC (Bld) [#/Vol] 4.00 10*6/uL 4.2-5.4 [facility] Serum or plasma calcium andres urement (mass/volume)Ordered By: Sofy Richter on 02-06-2024 Calcium [Mass/Vol] 8.5 mg/dL 8.5-10.1 [facility] Serum or plasma creatinine m easurement (mass/volume)Ordered By: Sofy Richter on 02-06-2024 Creatinine [Mass/Vol] 0.88 mg/dL 0.55-1.02 [facility] Comment on above: The validity of the calculated GFR & GFRAA in patients over 70 years has not been determined. Clinical correlation is essential. Serum or plasma thyroid stim ulating hormone (TSH) measurement (units/volume)Ordered By: Sofy Richter on 02-06-2024 TSH Qn 0.32 uIU/mL 0.358-3.74 [facility] Serum or plasma urea nitroge n measurement (mass/volume)Ordered By: Sofy Richter on 02-06-2024 Urea nitrogen [Mass/Vol] 13 mg/dL 7-18 [facility] Thin prep Papanicolaou smear with manual screeningOrdered By: Sofy Richter on 02-06-2024 Thin prep Papanicolaou smear with manual screening 3.7 g/dL 3.2-5.0 [facility] Thin prep Papanicolaou smear with manual screening 28 U/L 15-37 [facility] Thin prep Papanicolaou smear with manual screening 6 5-15 [facility] Thin prep Papanicolaou smear with manual screening 0.82 ng/dL 0.76-1.46 [facility] Whole blood hemoglobin A1c/t otal hemoglobin ratio (mass fraction)Ordered By: Sofy Rober on 02-06-2024 HbA1c (Bld) [Mass fraction] 5.3 % 3.8-5.6 [facility] Comment on above: Normal < 5.7 % Predi abetic 5.7 - 6.4 % Diabetic >or= 6.5 % Please note range changes. Culture, urineOrdered By: Fabiola Richter on 08-13-2023 Bacteria identified Cx Nom (U) Klebsiella oxytoca [facility] Absolute lymphocyte countOrd ered By: Venturabrandi Baez on 07-08-2023 Lymphocytes Auto (Unsp spec) [#/Vol] 2.67 10*3/uL 0.83-4.51 [facility] Basophil percentageOrdered B y: Venturabrandi Baez on 07-08-2023 Basophil percentage 0 SEEN /hpf 0-5 [facility] Basophils/100 WBC (Bld) 0.4 % 0-1 [facility] Chloride [Moles/Vol] 102 mmol/L 98-107 [facility] Eosinophils/100 WBC (Bld) 1.5 % 0-5 [facility] Glucose [Mass/Vol] 111 mg/dL 74-106 [facility] Comment on above: Fasting Glucose resu lt from 100 to 125 mg/dL suggests IMPAIRED HOMEOSTASIS per A.D.A. criteria. Neutrophils (Bld) [#/Vol] 2.0 10*3/uL 2.0-7.7 [facility] Neutrophils/100 WBC (Bld) 38.2 % 47-70 [facility] Potassium [Moles/Vol] 3.1 mmol/L 3.5-5.1 [facility] Sodium [Moles/Vol] 139 mmol/L 136-145 [facility] WBC (Bld) [#/Vol] 5.3 10*3/uL 4.4-11.0 [facility] Bilirubin Test strip Ql (U)O rdered By: Ventura Baez on 07-08-2023 Bilirubin Ql (U) Negative Negative [facility] Blood erythrocytes count (nu mber/volume)Ordered By: Ventura Baez on 07-08-2023 RBC (Bld) [#/Vol] 3.75 10*6/uL 4.2-5.4 [facility] Blood hemoglobin measurement (mass/volume)Ordered By: Ventura Baez on 07-08-2023 Hemoglobin (Bld) [Mass/Vol] 11.6 g/dL 12.0-15. 0 [facility] Blood lymphocytes/100 leukoc ytesOrdered By: Venturabrandi Baez on 07-08-2023 Lymphocytes/100 WBC (Bld) 50.6 % 19-41 [facility] Blood monocytes/100 leukocyt esOrdered By: Venturabrandi Baez on 07-08-2023 Monocytes/100 WBC (Bld) 9.1 % 0-10 [facility] Blood platelet mean volumeOr dered By: Ventura Baez on 07-08-2023 Platelet mean volume (Bld) [Entitic vol] 11.3 fL 6.2-12.0 [facility] Determination of erythrocyte mean corpuscular volume (MCV)Ordered By: Ventura Baez on 07-08-2023 MCV (RBC) [Entitic vol] 93.1 fL 81-99 [facility] Hematocrit Auto (Bld) [Volum e fraction]Ordered By: Venturabrandi Baez on 07-08-2023 Hematocrit (Bld) [Volume fraction] 34.9 % 37-47 [facility] Ketones Test strip Ql (U)Ord ered By: Ventura Baez on 07-08-2023 Ketones Ql (U) Negative Negative [facility] Laboratory - Chemistry and C hemistry - challengeOrdered By: Ventura Baez on 07-08-2023 CO2 [Moles/Vol] 32.0 mmol/L 21.0-32.0 [facility] Urea nitrogen/Creatinine [Mass ratio] 13.8 mg/mg 10-20 [facility] Laboratory - Hematology and Cell countsOrdered By: Ventura Baez on 07-08-2023 Erythrocyte distribution width (RBC) [Entitic vol] 42.3 fL 35.1-43.9 [facility] Erythrocyte distribution width (RBC) [Ratio] 12.4 % 11.6-14.6 [facility] Immature granulocytes/100 WBC (Bld) 0.200 % 0.0-0.9 [facility] Comment on above: IG% - Immature Granu locytes (promyelocytes, myelocytes and metamyelocytes) > 1% indicates that a LEFT SHIFT is Present. MCH (RBC) [Entitic mass] 30.9 pg 27.0-32.0 [facility] Nucleated RBC/100 WBC (Bld) [Ratio] 0 % 0-5 [facility] MCHC Auto (RBC) [Mass/Vol]Or dered By: Ventura Baez on 07-08-2023 MCHC (RBC) [Mass/Vol] 33.2 g/dL 32-36 [facility] Mucus LM Ql (Urine sed)Order ed By: Ventura Baez on 07-08-2023 Mucus Ql (Urine sed) 0 SEEN /hpf [facility] Nitrite Test strip Ql (U)Ord ered By: Ventura Baez on 07-08-2023 Nitrite Ql (U) Negative Negative [facility] No Panel InformationOrdered By: Ventura Baez on 07-08-2023 Estimated Creatinine Clearance Calc 66.79 ml/min [facility] Estimated GFR (MDRD) Amer 86 mL/min >60 [facility] Comment on above: GFR Calc Estimated GFR (MDRD) Non-Af Amer 71 mL/min >60 [facility] Comment on above: Non- GFR Calc Platelets bldOrdered By: Ventura Baez on 07-08-2023 Platelets (Bld) [#/Vol] 199 10*3/uL 150-450 [facility] Protein Test strip Ql (U)Ord ered By: Ventura Baez on 07-08-2023 Protein Ql (U) Negative Negative [facility] Serum or plasma calcium andres urement (mass/volume)Ordered By: Ventura Baez on 07-08-2023 Calcium [Mass/Vol] 8.8 mg/dL 8.5-10.1 [facility] Serum or plasma creatinine m easurement (mass/volume)Ordered By: Ventura Baez on 07-08-2023 Creatinine [Mass/Vol] 0.87 mg/dL 0.55-1.02 [facility] Comment on above: The validity of the calculated GFR & GFRAA in patients over 70 years has not been determined. Clinical correlation is essential. Serum or plasma urea nitroge n measurement (mass/volume)Ordered By: Ventura Baez on 07-08-2023 Urea nitrogen [Mass/Vol] 12 mg/dL 7-18 [facility] Squamous epithelial cells de tection in urine sediment by light microscopyOrdered By: Ventura Baez on 07-08-2023 Epithelial cells.squamous LM Ql (Urine sed) 0 SEEN /hpf 5-10 [facility] Thin prep Papanicolaou smear with manual screeningOrdered By: Ventura Baez on 07-08-2023 Thin prep Papanicolaou smear with manual screening 5 5-15 [facility] Urine blood detectionOrdered By: Ventura Baez on 07-08-2023 RBC Ql (U) Negative Negative [facility] RBC Ql (U) 0 SEEN /hpf 0-5 [facility] Urine clarityOrdered By: Ventura Baez on 07-08-2023 Clarity (U) Clear Clear [facility] Urine color determinationOrd ered By: Ventura Baez on 07-08-2023 Color (U) Yellow Yellow [facility] Urine glucose detectionOrder ed By: Ventura Baez on 07-08-2023 Glucose Ql (U) Normal mg/dl Normal [facility] Urine leukocyte esterase det ection by dipstickOrdered By: Ventura Baez on 07-08-2023 Leukocyte esterase Test strip Ql (U) 100 /ul Negative [facility] Urine pHOrdered By: Ventura monreal on 07-08-2023 pH (U) 6.5 [pH] 5.0 - 8.0 [facility] Urine sediment bacteria coun t by microscopy (number/high power field)Ordered By: Ventura Beaz on 07-08-2023 Bacteria LM.HPF (Urine sed) [#/Area] 0 /[HPF] None Seen [facility] Urine specific gravity measu rementOrdered By: Ventura Baez on 07-08-2023 Specific gravity (U) [Rel density] 1.010 1.002-1.030 [facility] Urobilinogen Auto test strip Ql (U)Ordered By: Ventura Baez on 07-08-2023 Urobilinogen Ql (U) Normal mg/dl Normal [facility] Basophil percentageOrdered B y: Sofy Malys on 06-15-2023 Bilirubin [Mass/Vol] 0.20 mg/dL 0.20-1.00 [facility] Comment on above: For patients on eltr ombopag therapy, use of Dim[place] TBIL is not recommended. Chloride [Moles/Vol] 106 mmol/L 98-107 [facility] Glucose [Mass/Vol] 91 mg/dL 74-106 [facility] Potassium [Moles/Vol] 3.8 mmol/L 3.5-5.1 [facility] Protein [Mass/Vol] 7.1 g/dL 6.4-8.2 [facility] Sodium [Moles/Vol] 142 mmol/L 136-145 [facility] Laboratory - Chemistry and C hemistry - challengeOrdered By: Sofy Richter on 06-15-2023 ALP [Catalytic activity/Vol] 110 U/L 45-117 [facility] ALT [Catalytic activity/Vol] 24 U/L 13-56 [facility] CO2 [Moles/Vol] 31.0 mmol/L 21.0-32.0 [facility] Free T4 [Mass/Vol] 1.12 ng/dL 0.76-1.46 [facility] Globulin (S) [Mass/Vol] 3.7 g/dL 2.2-4.2 [facility] Urea nitrogen/Creatinine [Mass ratio] 11.2 mg/mg 10-20 [facility] No Panel InformationOrdered By: Sofy Richter on 06-15-2023 Estimated GFR (MDRD) Amer 83 mL/min >60 [facility] Comment on above: GFR Calc Estimated GFR (MDRD) Non-Af Amer 69 mL/min >60 [facility] Comment on above: Non- GFR Calc Free Triiodothyronine (T3) pg/dL 2.3 pg/mL 2.18-3.98 [facility] Thyroid Stimulating Hormone (TSH) 0.77 uIU/mL 0.358-3.74 [facility] Serum or plasma albumin andres urement (mass/volume)Ordered By: Sofy Richter on 06-15-2023 Albumin [Mass/Vol] 3.4 g/dL 3.2-5.0 [facility] Serum or plasma albumin/glob ulin mass ratioOrdered By: Sofy Richter on 06-15-2023 Albumin/Globulin [Mass ratio] 0.9 {ratio} 0.9-2.4 [facility] Serum or plasma calcium andres urement (mass/volume)Ordered By: Sofy Richter on 06-15-2023 Calcium [Mass/Vol] 8.9 mg/dL 8.5-10.1 [facility] Serum or plasma creatinine m easurement (mass/volume)Ordered By: Sofy Richter on 06-15-2023 Creatinine [Mass/Vol] 0.90 mg/dL 0.55-1.02 [facility] Comment on above: The validity of the calculated GFR & GFRAA in patients over 70 years has not been determined. Clinical correlation is essential. Serum or plasma urea nitroge n measurement (mass/volume)Ordered By: Sofy Richter on 06-15-2023 Urea nitrogen [Mass/Vol] 10 mg/dL 7-18 [facility] Thin prep Papanicolaou smear with manual screeningOrdered By: Sofy Richter on 06-15-2023 Thin prep Papanicolaou smear with manual screening 26 U/L 15-37 [facility] Thin prep Papanicolaou smear with manual screening 5 5-15 [facility] Absolute lymphocyte countOrd ered By: Ventura Baez on 06-08-2023 Lymphocytes Auto (Unsp spec) [#/Vol] 2.88 10*3/uL 0.83-4.51 [facility] Basophil percentageOrdered B y: Ventura Baez on 06-08-2023 Basophil percentage 0-5 SEEN /hpf 0-5 [facility] Basophils/100 WBC (Bld) 0.5 % 0-1 [facility] Chloride [Moles/Vol] 102 mmol/L 98-107 [facility] Eosinophils/100 WBC (Bld) 0.7 % 0-5 [facility] Glucose [Mass/Vol] 94 mg/dL 74-106 [facility] Neutrophils (Bld) [#/Vol] 5.0 10*3/uL 2.0-7.7 [facility] Neutrophils/100 WBC (Bld) 58.4 % 47-70 [facility] Potassium [Moles/Vol] 3.5 mmol/L 3.5-5.1 [facility] Sodium [Moles/Vol] 139 mmol/L 136-145 [facility] WBC (Bld) [#/Vol] 8.5 10*3/uL 4.4-11.0 [facility] Bilirubin Test strip Ql (U)O rdered By: Ventura Baez on 06-08-2023 Bilirubin Ql (U) Negative Negative [facility] Blood erythrocytes count (nu mber/volume)Ordered By: Ventura Baez on 06-08-2023 RBC (Bld) [#/Vol] 4.28 10*6/uL 4.2-5.4 [facility] Blood hemoglobin measurement (mass/volume)Ordered By: Ventura Baez on 06-08-2023 Hemoglobin (Bld) [Mass/Vol] 12.9 g/dL 12.0-15. 0 [facility] Blood lymphocytes/100 leukoc ytesOrdered By: Ventura Baez on 06-08-2023 Lymphocytes/100 WBC (Bld) 33.8 % 19-41 [facility] Blood monocytes/100 leukocyt esOrdered By: Ventura Baez on 06-08-2023 Monocytes/100 WBC (Bld) 6.0 % 0-10 [facility] Blood platelet mean volumeOr dered By: Ventura Baez on 06-08-2023 Platelet mean volume (Bld) [Entitic vol] 11.8 fL 6.2-12.0 [facility] Determination of erythrocyte mean corpuscular volume (MCV)Ordered By: Ventura Baez on 06-08-2023 MCV (RBC) [Entitic vol] 95.3 fL 81-99 [facility] Hematocrit Auto (Bld) [Volum e fraction]Ordered By: Ventura Baez on 06-08-2023 Hematocrit (Bld) [Volume fraction] 40.8 % 37-47 [facility] Ketones Test strip Ql (U)Ord ered By: Ventura Baez on 06-08-2023 Ketones Ql (U) Negative Negative [facility] Laboratory - Chemistry and C hemistry - challengeOrdered By: Ventura Baez on 06-08-2023 CO2 [Moles/Vol] 31.0 mmol/L 21.0-32.0 [facility] Urea nitrogen/Creatinine [Mass ratio] 9.7 mg/mg 10-20 [facility] Laboratory - Hematology and Cell countsOrdered By: Ventura Baez on 06-08-2023 Erythrocyte distribution width (RBC) [Entitic vol] 42.8 fL 35.1-43.9 [facility] Erythrocyte distribution width (RBC) [Ratio] 12.4 % 11.6-14.6 [facility] Immature granulocytes/100 WBC (Bld) 0.600 % 0.0-0.9 [facility] Comment on above: IG% - Immature Granu locytes (promyelocytes, myelocytes and metamyelocytes) > 1% indicates that a LEFT SHIFT is Present. MCH (RBC) [Entitic mass] 30.1 pg 27.0-32.0 [facility] Nucleated RBC/100 WBC (Bld) [Ratio] 0 % 0-5 [facility] MCHC Auto (RBC) [Mass/Vol]Or dered By: Ventura Baez on 06-08-2023 MCHC (RBC) [Mass/Vol] 31.6 g/dL 32-36 [facility] Mucus LM Ql (Urine sed)Order ed By: Ventura Baez on 06-08-2023 Mucus Ql (Urine sed) 0 SEEN /hpf [facility] Nitrite Test strip Ql (U)Ord ered By: Ventura Baez on 06-08-2023 Nitrite Ql (U) Negative Negative [facility] No Panel InformationOrdered By: Ventura Baez on 06-08-2023 Estimated Creatinine Clearance Calc 55.81 ml/min [facility] Estimated GFR (MDRD) Amer 80 mL/min >60 [facility] Comment on above: GFR Calc Estimated GFR (MDRD) Non-Af Amer 66 mL/min >60 [facility] Comment on above: Non- GFR Calc Platelets bldOrdered By: Ventura Baez on 06-08-2023 Platelets (Bld) [#/Vol] 235 10*3/uL 150-450 [facility] Protein Test strip Ql (U)Ord ered By: Ventura Baez on 06-08-2023 Protein Ql (U) 15 mg/dl Negative [facility] Serum or plasma calcium andres urement (mass/volume)Ordered By: Ventura Baez on 06-08-2023 Calcium [Mass/Vol] 9.3 mg/dL 8.5-10.1 [facility] Serum or plasma creatinine m easurement (mass/volume)Ordered By: Ventura Baez on 06-08-2023 Creatinine [Mass/Vol] 0.92 mg/dL 0.55-1.02 [facility] Comment on above: The validity of the calculated GFR & GFRAA in patients over 70 years has not been determined. Clinical correlation is essential. Serum or plasma urea nitroge n measurement (mass/volume)Ordered By: Ventura Baez on 06-08-2023 Urea nitrogen [Mass/Vol] 9 mg/dL 7-18 [facility] Squamous epithelial cells de tection in urine sediment by light microscopyOrdered By: Ventura Baez on 06-08-2023 Epithelial cells.squamous LM Ql (Urine sed) 0 SEEN /hpf 5-10 [facility] Thin prep Papanicolaou smear with manual screeningOrdered By: Ventura Baez on 06-08-2023 Thin prep Papanicolaou smear with manual screening 6 5-15 [facility] Urine blood detectionOrdered By: Ventura Baez on 06-08-2023 RBC Ql (U) Negative Negative [facility] RBC Ql (U) 0 SEEN /hpf 0-5 [facility] Urine clarityOrdered By: Ventura Baez on 06-08-2023 Clarity (U) Clear Clear [facility] Urine color determinationOrd ered By: Ventura Baez on 06-08-2023 Color (U) Yellow Yellow [facility] Urine glucose detectionOrder ed By: Ventura Baez on 06-08-2023 Glucose Ql (U) Normal mg/dl Normal [facility] Urine leukocyte esterase det ection by dipstickOrdered By: Ventura Baez on 06-08-2023 Leukocyte esterase Test strip Ql (U) 25 /ul Negative [facility] Urine pHOrdered By: Ventura monreal on 06-08-2023 pH (U) 6.5 [pH] 5.0 - 8.0 [facility] Urine sediment bacteria coun t by microscopy (number/high power field)Ordered By: Ventura Baez on 06-08-2023 Bacteria LM.HPF (Urine sed) [#/Area] 0 /[HPF] None Seen [facility] Urine specific gravity measu rementOrdered By: Ventura Baez on 06-08-2023 Specific gravity (U) [Rel density] 1.010 1.002-1.030 [facility] Urobilinogen Auto test strip Ql (U)Ordered By: Ventura Baez on 06-08-2023 Urobilinogen Ql (U) Normal mg/dl Normal [facility] Culture, urineOrdered By: Fabiola Richter on 05-03-2023 Bacteria identified Cx Nom (U) Klebsiella pneumoniae sp pneum [facility] Bacteria identified Cx Nom (U) Klebsiella pneumoniae sp pneum [facility] Absolute lymphocyte countOrd ered By: Adalid Shaw on 04-05-2023 Lymphocytes Auto (Unsp spec) [#/Vol] 2.63 10*3/uL 0.83-4.51 [facility] Basophil percentageOrdered B y: Adalid Shaw on 04-05-2023 Basophils/100 WBC (Bld) 0.9 % 0-1 [facility] Bilirubin [Mass/Vol] 0.20 mg/dL 0.20-1.00 [facility] Comment on above: For patients on eltr ombopag therapy, use of Dim[place] TBIL is not recommended. Chloride [Moles/Vol] 105 mmol/L 98-107 [facility] Eosinophils/100 WBC (Bld) 1.2 % 0-5 [facility] Glucose [Mass/Vol] 100 mg/dL 74-106 [facility] Comment on above: Fasting Glucose resu lt from 100 to 125 mg/dL suggests IMPAIRED HOMEOSTASIS per A.D.A. criteria. Neutrophils (Bld) [#/Vol] 2.6 10*3/uL 2.0-7.7 [facility] Neutrophils/100 WBC (Bld) 44.0 % 47-70 [facility] Potassium [Moles/Vol] 3.9 mmol/L 3.5-5.1 [facility] Protein [Mass/Vol] 7.5 g/dL 6.4-8.2 [facility] Sodium [Moles/Vol] 139 mmol/L 136-145 [facility] WBC (Bld) [#/Vol] 5.9 10*3/uL 4.4-11.0 [facility] Blood erythrocytes count (nu mber/volume)Ordered By: Adalid Shaw on 04-05-2023 RBC (Bld) [#/Vol] 4.04 10*6/uL 4.2-5.4 [facility] Blood hemoglobin measurement (mass/volume)Ordered By: Adalid Shaw on 04-05-2023 Hemoglobin (Bld) [Mass/Vol] 12.1 g/dL 12.0-15. 0 [facility] Blood lymphocytes/100 leukoc ytesOrdered By: Adalid Shaw on 04-05-2023 Lymphocytes/100 WBC (Bld) 44.9 % 19-41 [facility] Blood monocytes/100 leukocyt esOrdered By: Adalid Shaw on 04-05-2023 Monocytes/100 WBC (Bld) 8.5 % 0-10 [facility] Blood platelet mean volumeOr dered By: Adalid Shaw on 04-05-2023 Platelet mean volume (Bld) [Entitic vol] 10.8 fL 6.2-12.0 [facility] Determination of erythrocyte mean corpuscular volume (MCV)Ordered By: Adalid Shaw on 04-05-2023 MCV (RBC) [Entitic vol] 93.3 fL 81-99 [facility] Erythrocyte sedimentation ra teOrdered By: Adalid Shaw on 04-05-2023 ESR (Bld) [Velocity] 11 mm/h 0-30 [facility] Hematocrit Auto (Bld) [Volum e fraction]Ordered By: Adalid Shaw on 04-05-2023 Hematocrit (Bld) [Volume fraction] 37.7 % 37-47 [facility] Laboratory - Chemistry and C hemistry - challengeOrdered By: Adalid Shaw on 04-05-2023 ALP [Catalytic activity/Vol] 130 U/L 45-117 [facility] ALT [Catalytic activity/Vol] 29 U/L 13-56 [facility] CO2 [Moles/Vol] 30.0 mmol/L 21.0-32.0 [facility] Globulin (S) [Mass/Vol] 3.9 g/dL 2.2-4.2 [facility] Urea nitrogen/Creatinine [Mass ratio] 15.8 mg/mg 10-20 [facility] Laboratory - Hematology and Cell countsOrdered By: Adalid Shaw on 04-05-2023 Erythrocyte distribution width (RBC) [Entitic vol] 43.9 fL 35.1-43.9 [facility] Erythrocyte distribution width (RBC) [Ratio] 12.8 % 11.6-14.6 [facility] Immature granulocytes/100 WBC (Bld) 0.500 % 0.0-0.9 [facility] Comment on above: IG% - Immature Granu locytes (promyelocytes, myelocytes and metamyelocytes) > 1% indicates that a LEFT SHIFT is Present. MCH (RBC) [Entitic mass] 30.0 pg 27.0-32.0 [facility] Nucleated RBC/100 WBC (Bld) [Ratio] 0 % 0-5 [facility] MCHC Auto (RBC) [Mass/Vol]Or dered By: Adalid Shaw on 04-05-2023 MCHC (RBC) [Mass/Vol] 32.1 g/dL 32-36 [facility] No Panel InformationOrdered By: Adalid Shaw on 04-05-2023 Estimated GFR (MDRD) Amer 92 mL/min >60 [facility] Comment on above: GFR Calc Estimated GFR (MDRD) Non-Af Amer 76 mL/min >60 [facility] Comment on above: Non- GFR Calc Platelets bldOrdered By: Jhonny Shaw on 04-05-2023 Platelets (Bld) [#/Vol] 244 10*3/uL 150-450 [facility] Serum or plasma C reactive p rotein measurement (mass/volume)Ordered By: Adalid Shaw on 04-05-2023 CRP [Mass/Vol] 8.15 mg/L 0.0-3.0 [facility] Comment on above: C-Reactive Protein ( CRP) provides useful information for thediagnosis, therapy and monitoring of inflammatory processesand associated diseases. For the evaluation of Relative Riskfor Cardiovascular Disease, a High Sensitivity CRP (HSCRP)should be ordered. Serum or plasma albumin andres urement (mass/volume)Ordered By: Adalid Shaw on 04-05-2023 Albumin [Mass/Vol] 3.6 g/dL 3.2-5.0 [facility] Serum or plasma albumin/glob ulin mass ratioOrdered By: Adalid Shaw on 04-05-2023 Albumin/Globulin [Mass ratio] 0.9 {ratio} 0.9-2.4 [facility] Serum or plasma calcium andres urement (mass/volume)Ordered By: Adalid Shaw on 04-05-2023 Calcium [Mass/Vol] 8.7 mg/dL 8.5-10.1 [facility] Serum or plasma creatinine m easurement (mass/volume)Ordered By: Adalid Shaw on 04-05-2023 Creatinine [Mass/Vol] 0.82 mg/dL 0.55-1.02 [facility] Comment on above: The validity of the calculated GFR & GFRAA in patients over 70 years has not been determined. Clinical correlation is essential. Serum or plasma urea nitroge n measurement (mass/volume)Ordered By: Adalid Shaw on 04-05-2023 Urea nitrogen [Mass/Vol] 13 mg/dL 7-18 [facility] Thin prep Papanicolaou smear with manual screeningOrdered By: Adalid Shaw on 04-05-2023 Thin prep Papanicolaou smear with manual screening 29 U/L 15-37 [facility] Thin prep Papanicolaou smear with manual screening 4 5-15 [facility] Culture, urineOrdered By: Dr Ru Richter on 03-10-2023 Bacteria identified Cx Nom (U) Presumptive E. coli [facility] Culture, urineOrdered By: Fabiola Richter on 03-08-2023 Bacteria identified Cx Nom (U) Presumptive E. coli [facility] Absolute lymphocyte countOrd ered By: Adalid Shaw on 12-14-2022 Lymphocytes Auto (Unsp spec) [#/Vol] 2.32 10*3/uL 0.83-4.51 [facility] Albumin Elph [Mass/Vol]Order ed By: Adalid Shaw on 12-14-2022 Albumin [Mass/Vol] 4.0 g/dL 2.9-4.4 [facility] Atypical perinuclear antineu trophil cytoplasmic antibodies measurementOrdered By: Adalid Shaw on 12-14-2022 Neutrophil cytoplasmic Ab.perinuclear.atypical IF (S) [Titer] <1:20 titer Neg:<1:20 [facility] Comment on above: The atypical pANCA p attern has been observed in asignificant percentage of patients with ulcerative colitis,primary sclerosing cholangitis and autoimmune hepatitis. Basophil percentageOrdered B y: Adalid Shaw on 12-14-2022 Basophil percentage < 0.2 AI 0.0-0.9 [facility] Basophils/100 WBC (Bld) 0.6 % 0-1 [facility] Bilirubin [Mass/Vol] 0.30 mg/dL 0.20-1.00 [facility] Comment on above: For patients on eltr ombopag therapy, use of Dim[place] TBIL is not recommended. Chloride [Moles/Vol] 104 mmol/L 98-107 [facility] Eosinophils/100 WBC (Bld) 1.8 % 0-5 [facility] Glucose [Mass/Vol] 100 mg/dL 74-106 [facility] Comment on above: Fasting Glucose resu lt from 100 to 125 mg/dL suggests IMPAIRED HOMEOSTASIS per A.D.A. criteria. LDH [Catalytic activity/Vol] 257 U/L 84-246 [facility] Neutrophils (Bld) [#/Vol] 2.2 10*3/uL 2.0-7.7 [facility] Neutrophils/100 WBC (Bld) 43.8 % 47-70 [facility] Potassium [Moles/Vol] 3.0 mmol/L 3.5-5.1 [facility] Protein [Mass/Vol] 7.5 g/dL 6.4-8.2 [facility] Sodium [Moles/Vol] 141 mmol/L 136-145 [facility] WBC (Bld) [#/Vol] 5.1 10*3/uL 4.4-11.0 [facility] Blood erythrocytes count (nu mber/volume)Ordered By: Adalid Shaw on 12-14-2022 RBC (Bld) [#/Vol] 3.84 10*6/uL 4.2-5.4 [facility] Blood hemoglobin measurement (mass/volume)Ordered By: Adalid Shaw on 12-14-2022 Hemoglobin (Bld) [Mass/Vol] 11.6 g/dL 12.0-15. 0 [facility] Blood lymphocytes/100 leukoc ytesOrdered By: Adalid Shaw on 12-14-2022 Lymphocytes/100 WBC (Bld) 45.9 % 19-41 [facility] Blood monocytes/100 leukocyt esOrdered By: Adalid Shaw on 12-14-2022 Monocytes/100 WBC (Bld) 7.7 % 0-10 [facility] Blood platelet mean volumeOr dered By: Adalid Shaw on 12-14-2022 Platelet mean volume (Bld) [Entitic vol] 11.2 fL 6.2-12.0 [facility] Determination of erythrocyte mean corpuscular volume (MCV)Ordered By: Adalid Shaw on 12-14-2022 MCV (RBC) [Entitic vol] 91.4 fL 81-99 [facility] Erythrocyte sedimentation ra teOrdered By: Adalid Shaw on 12-14-2022 ESR (Bld) [Velocity] 22 mm/h 0-30 [facility] Hematocrit Auto (Bld) [Volum e fraction]Ordered By: Adalid Shaw on 12-14-2022 Hematocrit (Bld) [Volume fraction] 35.1 % 37-47 [facility] Interpretation of serum or p lasma protein pattern by immunofixation (narrative resultOrdered By: Adalid Shaw on 12-14-2022 Protein Fractions Immunofixation Miguel [Interp] See comment [facility] Comment on above: Result: Not Observed Laboratory - Chemistry and C hemistry - challengeOrdered By: Adalid Shaw on 12-14-2022 ALP [Catalytic activity/Vol] 128 U/L 45-117 [facility] ALT [Catalytic activity/Vol] 23 U/L 13-56 [facility] CO2 [Moles/Vol] 29.0 mmol/L 21.0-32.0 [facility] Urea nitrogen/Creatinine [Mass ratio] 23.0 mg/mg 10-20 [facility] [facility] H[facility]ology and Cell countsOrdered By: Adalid Shaw on 12-14-2022 Erythrocyte distribution width (RBC) [Entitic vol] 43.1 fL 35.1-43.9 [facility] Erythrocyte distribution width (RBC) [Ratio] 13.2 % 11.6-14.6 [facility] Immature granulocytes/100 WBC (Bld) 0.200 % 0.0-0.9 [facility] Comment on above: IG% - Immature Granu locytes (promyelocytes, myelocytes and metamyelocytes) > 1% indicates that a LEFT SHIFT is Present. MCH (RBC) [Entitic mass] 30.2 pg 27.0-32.0 [facility] Nucleated RBC/100 WBC (Bld) [Ratio] 0 % 0-5 [facility] MCHC Auto (RBC) [Mass/Vol]Or dered By: Adalid Shaw on 12-14-2022 MCHC (RBC) [Mass/Vol] 33.0 g/dL 32-36 [facility] No Panel InformationOrdered By: Adalid Shaw on 12-14-2022 Addendum Document Comment . [facility] Comment on above: Protein electrophore sis scan will follow via computer,mail, or educational speech language clinician delivery. Centromere B Antibody <0.2 AI 0.0-0.9 [facility] Endomysial IgA Antibody Negative Negative [facility] Estimated GFR (MDRD) Amer 104 mL/min >60 [facility] Comment on above: GFR Calc Estimated GFR (MDRD) Non-Af Amer 86 mL/min >60 [facility] Comment on above: Non- GFR Calc Hepatitis A IgM Antibody Negative Negative [facility] Hepatitis B Core IgM Antibody Negative Negative [facility] Hepatitis C Antibody (EIA) Non-Reactive N on Reactive [facility] Hepatitis C Antibody Comment Comment . [facility] Comment on above: Not infected with HC V unless early or acute infection issuspected (which may be delayed in an immunocompromisedindividual), or other evidence exists to indicate HCVinfection. Immunoglobulin E 15 IU/mL 6-495 [facility] Comment on above: Performed at: - [place] [id number] Director: Bulmaro Ochoa PhD, Phone: [phone] at: [place] [address] [place], [place] [id number] Director: Ayah Finney MD, Phone: [phone] [employer] Antibody <0.2 AI 0.0-0.9 [facility] Platelets bldOrdered By: Jhonny Shaw on 12-14-2022 Platelets (Bld) [#/Vol] 258 10*3/uL 150-450 [facility] Serum DNA double strand anti body assay (units/volume)Ordered By: Adalid Shaw on 12-14-2022 DNA double strand Ab Qn (S) 1 [IU]/mL 0-9 [facility] Comment on above: Negative <5 Equivoca l 5 - 9 Positive >9 Serum Maribeth-1 antibody assay (u nits/volume)Ordered By: Adalid Shaw on 12-14-2022 Maribeth-1 extractable nuclear Ab Qn (S) <0.2 AI 0.0-0.9 [facility] Serum Scl-70 extractable nuc lear antibody assay (units/volume)Ordered By: Adalid Shaw on 12-14-2022 SCL-70 extractable nuclear Ab Qn (S) <0.2 AI 0.0-0.9 [facility] Serum Spicer extractable nucl ear antibody detectionOrdered By: Adalid Shaw on 12-14-2022 Spicer extractable nuclear Ab Ql (S) <0.2 AI 0.0-0.9 [facility] Serum [id number] measu rement by electrophoresisOrdered By: Adalid Shaw on 12-14-2022 Alpha 1 globulin Elph [Mass/Vol] 0.3 g/dL 0.0-0.4 [facility] Alpha 1 globulin Elph [Mass/Vol] 0.8 g/dL 0.4-1.0 [facility] Serum classic neutrophil cyt oplasmic antibody assay (units/volume)Ordered By: Adalid Shaw on 12-14-2022 Neutrophil cytoplasmic Ab.classic Qn (S) <1:20 titer Neg:<1:20 [facility] Serum globulin measurement ( mass/volume)Ordered By: Adalid Shaw on 12-14-2022 Globulin (S) [Mass/Vol] 3.2 g/dL 2.2-3.9 [facility] Serum or plasma C reactive p rotein measurement (mass/volume)Ordered By: Adalid Shaw on 12-14-2022 CRP [Mass/Vol] 26.40 mg/L 0.0-3.0 [facility] Comment on above: C-Reactive Protein ( CRP) provides useful information for thediagnosis, therapy and monitoring of inflammatory processesand associated diseases. For the evaluation of Relative Riskfor Cardiovascular Disease, a High Sensitivity CRP (HSCRP)should be ordered. Serum or plasma IgA measurem ent (mass/volume)Ordered By: Adalid Shaw on 12-14-2022 IgA [Mass/Vol] 135 mg/dL 87-352 [facility] Serum or plasma IgG measurem ent (mass/volume)Ordered By: Adalid Shaw on 12-14-2022 IgG [Mass/Vol] 921 mg/dL [phone] [facility] Serum or plasma IgM measurem ent (mass/volume)Ordered By: Adalid Shaw on 12-14-2022 IgM [Mass/Vol] 38 mg/dL 26-217 [facility] Serum or plasma albumin andres urement (mass/volume)Ordered By: Adalid Shaw on 12-14-2022 Albumin [Mass/Vol] 4.1 g/dL 3.2-5.0 [facility] Serum or plasma albumin/glob ulin mass ratioOrdered By: Adalid Shaw on 12-14-2022 Albumin/Globulin [Mass ratio] 1.2 {ratio} 0.9-2.4 [facility] Serum or plasma beta globuli n measurement by electrophoresis (mass/volume)Ordered By: Adalid Shaw on 12-14-2022 Beta globulin Elph [Mass/Vol] 1.2 g/dL 0.7-1.3 [facility] Serum or plasma calcium andres urement (mass/volume)Ordered By: Adalid Shaw on 12-14-2022 Calcium [Mass/Vol] 8.8 mg/dL 8.5-10.1 [facility] Serum or plasma creatinine m easurement (mass/volume)Ordered By: Adalid Shaw on 12-14-2022 Creatinine [Mass/Vol] 0.74 mg/dL 0.55-1.02 [facility] Comment on above: The validity of the calculated GFR & GFRAA in patients over 70 years has not been determined. Clinical correlation is essential. Serum or plasma gamma globul in measurement by electrophoresis (mass/volume)Ordered By: Adalid Shaw on 12-14-2022 Gamma globulin Elph [Mass/Vol] 0.9 g/dL 0.4-1.8 [facility] Serum or plasma hepatitis B virus surface antigen detection by immunoassayOrdered By: Adalid Shaw on 12-14-2022 HBV surface Ag IA Ql Negative Negative [facility] Serum or plasma immunoelectr ophoresis interpretation (nominal result)Ordered By: Adalid Shaw on 12-14-2022 Interpretation IEP [Interp] Comment . [facility] Comment on above: No monoclonality det ected. Serum or plasma urea nitroge n measurement (mass/volume)Ordered By: Adalid Shaw on 12-14-2022 Urea nitrogen [Mass/Vol] 17 mg/dL 7-18 [facility] Serum perinuclear neutrophil cytoplasmic antibody titer by immunofluorescenceOrdered By: Adalid Shaw on 12-14-2022 Neutrophil cytoplasmic Ab.perinuclear IF (S) [Titer] <1:20 titer Neg:<1:20 [facility] Comment on above: The presence of posi tive fluorescence exhibiting P-ANCA orC-ANCA patterns alone is not specific for the diagnosis ofWegener's Granulomatosis (WG) or microscopic polyangiitis.Decisions about treatment should not be based solely onANCA IFA results. The [employer] Consensusrecommends follow up testing of positive sera with both AZ-3 and MPO-ANCA enzyme immunoassays. As many as 5% serumsamples are positive only by EIA. Ref. AM J Clin [id number];111:507-513. Serum tissue transglutaminas e IgA antibody assay (units/volume)Ordered By: Adalid Shaw on 12-14-2022 tTG IgA Qn (S) <2 U/mL 0-3 [facility] Comment on above: Negative 0 - 3 Weak Positive 4 - 10 Positive >10 Tissue Transglutaminase (tTG) has been identified as the endomysial antigen. Studies have demonstr- ated that endomysial IgA antibodies have over 99% specificity for gluten sensitive enteropathy. Thin prep Papanicolaou smear with manual screeningOrdered By: Adalid Shaw on 12-14-2022 Thin prep Papanicolaou smear with manual screening 35 U/L 15-37 [facility] Thin prep Papanicolaou smear with manual screening 8 5-15 [facility] Thin prep Papanicolaou smear with manual screening 1.3 0.7-1.7 [facility] Total protein bloodOrdered B y: Adalid Shaw on 12-14-2022 Protein [Mass/Vol] 7.2 g/dL 6.0-8.5 [facility] Absolute lymphocyte countOrd ered By: Dr. Turner on 11-26-2022 Lymphocytes Auto (Unsp spec) [#/Vol] 2.37 10*3/uL 0.83-4.51 [facility] Basophil percentageOrdered B y: Dr. Turner on 11-26-2022 Basophils/100 WBC (Bld) 0.3 % 0-1 [facility] Chloride [Moles/Vol] 106 mmol/L 98-107 [facility] Eosinophils/100 WBC (Bld) 1.0 % 0-5 [facility] Glucose [Mass/Vol] 103 mg/dL 74-106 [facility] Comment on above: Fasting Glucose resu lt from 100 to 125 mg/dL suggests IMPAIRED HOMEOSTASIS per A.D.A. criteria. Neutrophils (Bld) [#/Vol] 4.9 10*3/uL 2.0-7.7 [facility] Neutrophils/100 WBC (Bld) 62.4 % 47-70 [facility] Potassium [Moles/Vol] 3.6 mmol/L 3.5-5.1 [facility] Sodium [Moles/Vol] 143 mmol/L 136-145 [facility] WBC (Bld) [#/Vol] 7.8 10*3/uL 4.4-11.0 [facility] Blood erythrocytes count (nu mber/volume)Ordered By: Dr. Turner on 11-26-2022 RBC (Bld) [#/Vol] 4.05 10*6/uL 4.2-5.4 [facility] Blood hemoglobin measurement (mass/volume)Ordered By: Dr. Turner on 11-26-2022 Hemoglobin (Bld) [Mass/Vol] 12.1 g/dL 12.0-15. 0 [facility] Blood lymphocytes/100 leukoc ytesOrdered By: Dr. Turner on 11-26-2022 Lymphocytes/100 WBC (Bld) 30.4 % 19-41 [facility] Blood monocytes/100 leukocyt esOrdered By: Dr. Turner on 11-26-2022 Monocytes/100 WBC (Bld) 5.5 % 0-10 [facility] Blood platelet mean volumeOr dered By: Dr. Turner on 11-26-2022 Platelet mean volume (Bld) [Entitic vol] 11.2 fL 6.2-12.0 [facility] Determination of erythrocyte mean corpuscular volume (MCV)Ordered By: Dr. Turner on 11-26-2022 MCV (RBC) [Entitic vol] 90.9 fL 81-99 [facility] Hematocrit Auto (Bld) [Volum e fraction]Ordered By: Dr. Turner on 11-26-2022 Hematocrit (Bld) [Volume fraction] 36.8 % 37-47 [facility] Influenza virus A and B and SARS-CoV-2 (COVID-19) Ag panel - Upper respiratory specimOrdered By: Dr. Turner on 11-26-2022 SARS-CoV-2 (COVID-19) RNA GUALBERTO+probe Ql (Resp) [facility] Laboratory - Chemistry and C hemistry - challengeOrdered By: Dr. Turner on 11-26-2022 CO2 [Moles/Vol] 29.0 mmol/L 21.0-32.0 [facility] Urea nitrogen/Creatinine [Mass ratio] 21.1 mg/mg 10-20 [facility] Laboratory - Hematology and Cell countsOrdered By: Dr. Turner on 11-26-2022 Erythrocyte distribution width (RBC) [Entitic vol] 41.9 fL 35.1-43.9 [facility] Erythrocyte distribution width (RBC) [Ratio] 12.7 % 11.6-14.6 [facility] Immature granulocytes/100 WBC (Bld) 0.400 % 0.0-0.9 [facility] Comment on above: IG% - Immature Granu locytes (promyelocytes, myelocytes and metamyelocytes) > 1% indicates that a LEFT SHIFT is Present. MCH (RBC) [Entitic mass] 29.9 pg 27.0-32.0 [facility] Nucleated RBC/100 WBC (Bld) [Ratio] 0 % 0-5 [facility] MCHC Auto (RBC) [Mass/Vol]Or dered By: Dr. Turner on 11-26-2022 MCHC (RBC) [Mass/Vol] 32.9 g/dL 32-36 [facility] No Panel InformationOrdered By: Dr. Turner on 11-26-2022 Estimated Creatinine Clearance Calc 68.37 ml/min [facility] Estimated GFR (MDRD) Amer 101 mL/min >60 [facility] Comment on above: GFR Calc Estimated GFR (MDRD) Non-Af Amer 83 mL/min >60 [facility] Comment on above: Non- GFR Calc Platelets bldOrdered By: Dr. Turner on 11-26-2022 Platelets (Bld) [#/Vol] 204 10*3/uL 150-450 [facility] Serum or plasma calcium andres urement (mass/volume)Ordered By: Dr. Turner on 11-26-2022 Calcium [Mass/Vol] 8.5 mg/dL 8.5-10.1 [facility] Serum or plasma creatinine m easurement (mass/volume)Ordered By: Dr. Turner on 11-26-2022 Creatinine [Mass/Vol] 0.76 mg/dL 0.55-1.02 [facility] Comment on above: The validity of the calculated GFR & GFRAA in patients over 70 years has not been determined. Clinical correlation is essential. Serum or plasma urea nitroge n measurement (mass/volume)Ordered By: Dr. Turner on 11-26-2022 Urea nitrogen [Mass/Vol] 16 mg/dL 7-18 [facility] Thin prep Papanicolaou smear with manual screeningOrdered By: Dr. Turner on 11-26-2022 Thin prep Papanicolaou smear with manual screening 8 5-15 [facility] Influenza virus A and B and SARS-CoV-2 (COVID-19) Ag panel - Upper respiratory specimOrdered By: Dr. Sol on 11-12-2022 SARS-CoV-2 (COVID-19) RNA GUALBERTO+probe Ql (Resp) [facility] Absolute lymphocyte counton 07-24-2022 Lymphocytes Auto (Unsp spec) [#/Vol] 2.29 10*3/uL 0.83-4.51 [facility] Work Phone: Basophil percentageon 2021 Basophils/100 WBC (Bld) 0.7 % 0-1 [facility] Work Phone: Bilirubin [Mass/Vol] 0.20 mg/dL 0.20-1.00 [facility] Work Phone: Comment on above: For patients on eltr ombopag therapy, use of Dimension [place] TBIL is not recommended. Chloride [Moles/Vol] 104 mmol/L 98-107 [facility] Work Phone: Cholesterol [Mass/Vol] 246 mg/dL <200 [facility] Work Phone: Comment on above: <200 mg/dL Desirable 200-240 mg/dL Borderline >240 mg/dL High Risk Eosinophils/100 WBC (Bld) 0.7 % 0-5 [facility] Work Phone: Glucose [Mass/Vol] 103 mg/dL 74-106 [facility] Work Phone: Comment on above: Fasting Glucose resu lt from 100 to 125 mg/dL suggests IMPAIRED HOMEOSTASIS per A.D.A. criteria. Neutrophils (Bld) [#/Vol] 1.7 10*3/uL 2.0-7.7 [facility] Work Phone: Neutrophils/100 WBC (Bld) 37.6 % 47-70 [facility] Work Phone: Potassium [Moles/Vol] 3.8 mmol/L 3.5-5.1 [facility] Work Phone: Protein [Mass/Vol] 7.3 g/dL 6.4-8.2 [facility] Work Phone: Sodium [Moles/Vol] 143 mmol/L 136-145 [facility] Work Phone: Triglyceride [Mass/Vol] 189 mg/dL <199 [facility] Work Phone: Comment on above: The drugs N-Acetylcy steine and Metamizole may falsely depress this assay.Serum Triglycerides Reference Interval Normal <150 mg/dL Borderline high 150 - 199 mg/dL High 200 - 499 mg/dL Very High > or = 500 mg/dL WBC (Bld) [#/Vol] 4.5 10*3/uL 4.4-11.0 [facility] Work Phone: Blood erythrocytes count (nu mber/volume)on 07-24-2022 RBC (Bld) [#/Vol] 3.90 10*6/uL 4.2-5.4 [facility] Work Phone: Blood hemoglobin measurement (mass/volume)on 07-24-2022 Hemoglobin (Bld) [Mass/Vol] 11.9 g/dL 12.0-15. 0 [facility] Work Phone: Blood lymphocytes/100 leukoc yteson 07-24-2022 Lymphocytes/100 WBC (Bld) 51.5 % 19-41 [facility] Work Phone: Blood monocytes/100 leukocyt eson 07-24-2022 Monocytes/100 WBC (Bld) 8.8 % 0-10 [facility] Work Phone: Blood platelet mean volumeon 07-24-2022 Platelet mean volume (Bld) [Entitic vol] 11.0 fL 6.2-12.0 [facility] Work Phone: Determination of erythrocyte mean corpuscular volume (MCV)on 07-24-2022 MCV (RBC) [Entitic vol] 93.8 fL 81-99 [facility] Work Phone: Hematocrit Auto (Bld) [Volum e fraction]on 07-24-2022 Hematocrit (Bld) [Volume fraction] 36.6 % 37-47 [facility] Work Phone: Laboratory - Chemistry and C hemistry - challengeon 07-24-2022 ALP [Catalytic activity/Vol] 141 U/L 45-117 [facility] Work Phone: ALT [Catalytic activity/Vol] 38 U/L 13-56 [facility] Work Phone: CO2 [Moles/Vol] 32.0 mmol/L 21.0-32.0 [facility] Work Phone: Globulin (S) [Mass/Vol] 3.9 g/dL 2.2-4.2 [facility] Work Phone: Urea nitrogen/Creatinine [Mass ratio] 15.4 mg/mg 10-20 [facility] Work Phone: Laboratory - Hematology and Cell countson 07-24-2022 Erythrocyte distribution width (RBC) [Entitic vol] 44.0 fL 35.1-43.9 [facility] Work Phone: Erythrocyte distribution width (RBC) [Ratio] 12.9 % 11.6-14.6 [facility] Work Phone: Immature granulocytes/100 WBC (Bld) 0.700 % 0.0-0.9 [facility] Work Phone: Comment on above: IG% - Immature Granu locytes (promyelocytes, myelocytes and metamyelocytes) > 1% indicates that a LEFT SHIFT is Present. MCH (RBC) [Entitic mass] 30.5 pg 27.0-32.0 [facility] Work Phone: Nucleated RBC/100 WBC (Bld) [Ratio] 0 % 0-5 [facility] Work Phone: MCHC Auto (RBC) [Mass/Vol]on 07-24-2022 MCHC (RBC) [Mass/Vol] 32.5 g/dL 32-36 [facility] Work Phone: No Panel Informationon 07-24 POC SARS CoV-2 Antigen Negative Wo [facility] Work Phone: Estimated GFR (MDRD) Amer 109 mL/min >60 [facility] Work Phone: Comment on above: GFR Calc Estimated GFR (MDRD) Non-Af Amer 90 mL/min >60 [facility] Work Phone: Comment on above: Non- GFR Calc Platelets bldon 07-24-2022 Platelets (Bld) [#/Vol] 205 10*3/uL 150-450 [facility] Work Phone: Serum or plasma albumin andres urement (mass/volume)on 07-24-2022 Albumin [Mass/Vol] 3.4 g/dL 3.2-5.0 [facility] Work Phone: Serum or plasma albumin/glob ulin mass ratioon 07-24-2022 Albumin/Globulin [Mass ratio] 0.9 {ratio} 0.9-2.4 [facility] Work Phone: Serum or plasma calcium andres urement (mass/volume)on 07-24-2022 Calcium [Mass/Vol] 8.5 mg/dL 8.5-10.1 [facility] Work Phone: Serum or plasma cholesterol in HDL measurement (mass/volume)on 07-24-2022 Cholesterol in HDL [Mass/Vol] 51 mg/dL >40 [facility] Work Phone: Comment on above: The drugs N-Acetylcy steine and Metamizole may falsely depress this assay. Reference Range HDL <40 mg/dL Low HDL Cholesterol HDL >or= 60 mg/dL High HDL Cholesterol Serum or plasma cholesterol in VLDL measurement (mass/volume)on 07-24-2022 Cholesterol in VLDL [Mass/Vol] 38 mg/dL 5-40 [facility] Work Phone: Serum or plasma creatinine m easurement (mass/volume)on 07-24-2022 Creatinine [Mass/Vol] 0.71 mg/dL 0.55-1.02 [facility] Work Phone: Comment on above: The validity of the calculated GFR & GFRAA in patients over 70 years has not been determined. Clinical correlation is essential. Serum or plasma low density lipoprotein (LDL) cholesterol measurement (mass/volume)on 07-24-2022 Cholesterol in LDL [Mass/Vol] 157 mg/dL 0-130 [facility] Work Phone: Serum or plasma urea nitroge n measurement (mass/volume)on 07-24-2022 Urea nitrogen [Mass/Vol] 11 mg/dL 7-18 [facility] Work Phone: Thin prep Papanicolaou smear with manual screeningon 07-24-2022 Thin prep Papanicolaou smear with manual screening 48 U/L 15-37 [facility] Work Phone: Thin prep Papanicolaou smear with manual screening 7 5-15 [facility] Work Phone: Whole blood hemoglobin A1c/t otal hemoglobin ratio (mass fraction)on 07-24-2022 HbA1c (Bld) [Mass fraction] 6.0 % 3.8-5.6 [facility] Work Phone: Comment on above: Normal < 5.7 % Predi abetic 5.7 - 6.4 % Diabetic >or= 6.5 % Please note range changes. Erythrocyte sedimentation ra srinath 06-02-2022 ESR (Bld) [Velocity] 20 mm/h 0-30 [facility] Work Phone: Laboratory - Chemistry and C hemistry - challengeon 06-02-2022 Free T4 [Mass/Vol] 0.87 ng/dL 0.76-1.46 [facility] Work Phone: No Panel Informationon 06-02 Free Triiodothyronine (T3) pg/dL 3.4 pg/mL 2.18-3.98 [facility] Work Phone: Thyroid Stimulating Hormone (TSH) 0.16 uIU/mL 0.358-3.74 [facility] Work Phone: Serum or plasma C reactive p rotein measurement (mass/volume)on 06-02-2022 CRP [Mass/Vol] 11.80 mg/L 0.0-3.0 [facility] Work Phone: Comment on above: C-Reactive Protein ( CRP) provides useful information for thediagnosis, therapy and monitoring of inflammatory processesand associated diseases. For the evaluation of Relative Riskfor Cardiovascular Disease, a High Sensitivity CRP (HSCRP)should be ordered. Absolute lymphocyte counton 01-28-2022 Lymphocytes Auto (Unsp spec) [#/Vol] 2.15 10*3/uL 0.83-4.51 [facility] Work Phone: Basophil percentageon 2021 Basophils/100 WBC (Bld) 0.6 % 0-1 [facility] Work Phone: Chloride [Moles/Vol] 107 mmol/L 98-107 [facility] Work Phone: Eosinophils/100 WBC (Bld) 1.2 % 0-5 [facility] Work Phone: Glucose [Mass/Vol] 109 mg/dL 74-106 [facility] Work Phone: Comment on above: Fasting Glucose resu lt from 100 to 125 mg/dL suggests IMPAIRED HOMEOSTASIS per A.D.A. criteria. Neutrophils (Bld) [#/Vol] 2.5 10*3/uL 2.0-7.7 [facility] Work Phone: [phone] Neutrophils/100 WBC (Bld) 47.8 % 47-70 [facility] Work Phone: Potassium [Moles/Vol] 4.2 mmol/L 3.5-5.1 [facility] Work Phone: Sodium [Moles/Vol] 141 mmol/L 136-145 [facility] Work Phone: WBC (Bld) [#/Vol] 5.1 10*3/uL 4.4-11.0 [facility] Work Phone: [phone] Blood erythrocytes count (nu mber/volume)on 01-28-2022 RBC (Bld) [#/Vol] 3.78 10*6/uL 4.2-5.4 [facility] Work Phone: Blood hemoglobin measurement (mass/volume)on 01-28-2022 Hemoglobin (Bld) [Mass/Vol] 11.6 g/dL 12.0-15. 0 [facility] Work Phone: Blood lymphocytes/100 leukoc yteson 01-28-2022 Lymphocytes/100 WBC (Bld) 42.0 % 19-41 [facility] Work Phone: Blood monocytes/100 leukocyt eson 01-28-2022 Monocytes/100 WBC (Bld) 7.4 % 0-10 [facility] Work Phone: Blood platelet mean volumeon 01-28-2022 Platelet mean volume (Bld) [Entitic vol] 11.7 fL 6.2-12.0 [facility] Work Phone: Determination of erythrocyte mean corpuscular volume (MCV)on 01-28-2022 MCV (RBC) [Entitic vol] 93.4 fL 81-99 [facility] Work Phone: Hematocrit Auto (Bld) [Volum e fraction]on 01-28-2022 Hematocrit (Bld) [Volume fraction] 35.3 % 37-47 [facility] Work Phone: Laboratory - Chemistry and C hemistry - challengeon 01-28-2022 CO2 [Moles/Vol] 28.0 mmol/L 21.0-32.0 [facility] Work Phone: Urea nitrogen/Creatinine [Mass ratio] 19.3 mg/mg 10-20 [facility] Work Phone: Laboratory - Hematology and Cell countson 01-28-2022 Erythrocyte distribution width (RBC) [Entitic vol] 46.5 fL 35.1-43.9 [facility] Work Phone: Erythrocyte distribution width (RBC) [Ratio] 13.9 % 11.6-14.6 [facility] Work Phone: Immature granulocytes/100 WBC (Bld) 1.000 % 0.0-0.9 [facility] Work Phone: Comment on above: IG% - Immature Granu locytes (promyelocytes, myelocytes and metamyelocytes) > 1% indicates that a LEFT SHIFT is Present. MCH (RBC) [Entitic mass] 30.7 pg 27.0-32.0 [facility] Work Phone: Nucleated RBC/100 WBC (Bld) [Ratio] 0 % 0-5 [facility] Work Phone: MCHC Auto (RBC) [Mass/Vol]on 01-28-2022 MCHC (RBC) [Mass/Vol] 32.9 g/dL 32-36 [facility] Work Phone: No Panel Informationon 01-28 Estimated Creatinine Clearance Calc 62.61 ml/min [facility] Work Phone: Estimated GFR (MDRD) Amer 92 mL/min >60 [facility] Work Phone: Comment on above: GFR Calc Estimated GFR (MDRD) Non-Af Amer 76 mL/min >60 [facility] Work Phone: Comment on above: Non- GFR Calc Troponin I High Sensitivity < 3 pg/mL 3.0-54.0 [facility] Work Phone: Comment on above: Please Note: [place] Units and Gender Specific Reference Ranges. For more information see Policy Stat Procedure [place] High Sensitivity Troponin (TNIH) and attachments. Platelets bldon 01-28-2022 Platelets (Bld) [#/Vol] 208 10*3/uL 150-450 [facility] Work Phone: Serum or plasma calcium andres urement (mass/volume)on 01-28-2022 Calcium [Mass/Vol] 9.0 mg/dL 8.5-10.1 [facility] Work Phone: Serum or plasma creatinine m easurement (mass/volume)on 01-28-2022 Creatinine [Mass/Vol] 0.83 mg/dL 0.55-1.02 [facility] Work Phone: Comment on above: The validity of the calculated GFR & GFRAA in patients over 70 years has not been determined. Clinical correlation is essential. Serum or plasma urea nitroge n measurement (mass/volume)on 01-28-2022 Urea nitrogen [Mass/Vol] 16 mg/dL 7-18 [facility] Work Phone: Thin prep Papanicolaou smear with manual screeningon 01-28-2022 Thin prep Papanicolaou smear with manual screening 6 5-15 [facility] Work Phone: Absolute lymphocyte counton 10-10-2021 Lymphocytes Auto (Unsp spec) [#/Vol] 1.86 10*3/uL 0.83-4.51 [facility] Work Phone: Basophil percentageon 2021 Basophils/100 WBC (Bld) 0.2 % 0-1 [facility] Work Phone: Bilirubin [Mass/Vol] 0.30 mg/dL 0.20-1.00 [facility] Work Phone: Comment on above: For patients on eltr ombopag therapy, use of Dimension [place] TBIL is not recommended. Chloride [Moles/Vol] 106 mmol/L 98-107 [facility] Work Phone: Eosinophils/100 WBC (Bld) 0.0 % 0-5 [facility] Work Phone: Glucose [Mass/Vol] 106 mg/dL 74-106 [facility] Work Phone: Comment on above: Fasting Glucose resu lt from 100 to 125 mg/dL suggests IMPAIRED HOMEOSTASIS per A.D.A. criteria.Please note revised GLUCOSE reference range effective 2017. Neutrophils (Bld) [#/Vol] 7.0 10*3/uL 2.0-7.7 [facility] Work Phone: Neutrophils/100 WBC (Bld) 73.0 % 47-70 [facility] Work Phone: [phone] Potassium [Moles/Vol] 3.5 mmol/L 3.5-5.1 [facility] Work Phone: Protein [Mass/Vol] 6.3 g/dL 6.4-8.2 [facility] Work Phone: Sodium [Moles/Vol] 141 mmol/L 136-145 [facility] Work Phone: WBC (Bld) [#/Vol] 9.6 10*3/uL 4.4-11.0 [facility] Work Phone: Blood erythrocytes count (nu mber/volume)on 10-10-2021 RBC (Bld) [#/Vol] 3.10 10*6/uL 4.2-5.4 [facility] Work Phone: Blood hemoglobin measurement (mass/volume)on 10-10-2021 Hemoglobin (Bld) [Mass/Vol] 9.4 g/dL 12.0-15. 0 [facility] Work Phone: Blood lymphocytes/100 leukoc yteson 10-10-2021 Lymphocytes/100 WBC (Bld) 19.3 % 19-41 [facility] Work Phone: Blood monocytes/100 leukocyt eson 10-10-2021 Monocytes/100 WBC (Bld) 4.6 % 0-10 [facility] Work Phone: Blood platelet mean volumeon 10-10-2021 Platelet mean volume (Bld) [Entitic vol] 11.4 fL 6.2-12.0 [facility] Work Phone: Determination of erythrocyte mean corpuscular volume (MCV)on 10-10-2021 MCV (RBC) [Entitic vol] 94.8 fL 81-99 [facility] Work Phone: Hematocrit Auto (Bld) [Volum e fraction]on 10-10-2021 Hematocrit (Bld) [Volume fraction] 29.4 % 37-47 [facility] Work Phone: Laboratory - Chemistry and C hemistry - challengeon 10-10-2021 ALP [Catalytic activity/Vol] 90 U/L 45-117 [facility] Work Phone: ALT [Catalytic activity/Vol] 23 U/L 13-56 [facility] Work Phone: CO2 [Moles/Vol] 30.0 mmol/L 21.0-32.0 [facility] Work Phone: Globulin (S) [Mass/Vol] 4.1 g/dL 2.2-4.2 [facility] Work Phone: Urea nitrogen/Creatinine [Mass ratio] 23.6 mg/mg 10-20 [facility] Work Phone: Laboratory - Hematology and Cell countson 10-10-2021 Erythrocyte distribution width (RBC) [Entitic vol] 45.6 fL 35.1-43.9 [facility] Work Phone: Erythrocyte distribution width (RBC) [Ratio] 13.2 % 11.6-14.6 [facility] Work Phone: Immature granulocytes/100 WBC (Bld) 2.900 % 0.0-0.9 [facility] Work Phone: Comment on above: IG% - Immature Granu locytes (promyelocytes, myelocytes and metamyelocytes) > 1% indicates that a LEFT SHIFT is Present. MCH (RBC) [Entitic mass] 30.3 pg 27.0-32.0 [facility] Work Phone: Nucleated RBC/100 WBC (Bld) [Ratio] 0 % 0-5 [facility] Work Phone: MCHC Auto (RBC) [Mass/Vol]on 10-10-2021 MCHC (RBC) [Mass/Vol] 32.0 g/dL 32-36 [facility] Work Phone: No Panel Informationon 10-10 Atypical Lymphocytes 1+ % [facility] Work Phone: Estimated Creatinine Clearance Calc 104.00 ml/min [facility] Work Phone: Estimated GFR (MDRD) Amer 147 mL/min >60 [facility] Work Phone: Comment on above: GFR Calc Estimated GFR (MDRD) Non-Af Amer 121 mL/min >60 [facility] Work Phone: Comment on above: Non- GFR Calc Platelets bldon 10-10-2021 Platelets (Bld) [#/Vol] 264 10*3/uL 150-450 [facility] Work Phone: Serum or plasma albumin andres urement (mass/volume)on 10-10-2021 Albumin [Mass/Vol] 2.2 g/dL 3.2-5.0 [facility] Work Phone: Serum or plasma albumin/glob ulin mass ratioon 10-10-2021 Albumin/Globulin [Mass ratio] 0.5 {ratio} 0.9-2.4 [facility] Work Phone: Serum or plasma calcium andres urement (mass/volume)on 10-10-2021 Calcium [Mass/Vol] 8.6 mg/dL 8.5-10.1 [facility] Work Phone: Serum or plasma creatinine m easurement (mass/volume)on 10-10-2021 Creatinine [Mass/Vol] 0.55 mg/dL 0.55-1.02 [facility] Work Phone: Comment on above: The validity of the calculated GFR & GFRAA in patients over 70 years has not been determined. Clinical correlation is essential. Serum or plasma urea nitroge n measurement (mass/volume)on 10-10-2021 Urea nitrogen [Mass/Vol] 13 mg/dL 7-18 [facility] Work Phone: Thin prep Papanicolaou smear with manual screeningon 10-10-2021 Thin prep Papanicolaou smear with manual screening 32 U/L 15-37 [facility] Work Phone: Thin prep Papanicolaou smear with manual screening 5 5-15 [facility] Work Phone: Blood platelet adequacy dete ction by light microscopyon 10-09-2021 Platelets LM Ql (Bld) ADEQUATE ADEQ [facility] Work Phone: Hypochromatic red blood cell detectionon 10-09-2021 Hypochromia Ql (Bld) RARE [facility] Work Phone: Bronchoalveolar lavage cultu re with Gram stainon 10-07-2021 Respiratory Culture Streptococcus pneumoniae [facility] Work Phone: Gram stain for investigation of transfusion reactionon 10-07-2021 Microscopic observation Gram stain Nom (Unsp spec) [facility] Work Phone: No Panel Informationon 10-07 D-Dimer Quantitative (PE/DVT) 0.81 FEU/ug/m 0.27-0.49 [facility] Work Phone: Comment on above: D-Dimer ELEVATED (>0 .49): Additional studies and clinicalassessments are indicated to conclude diagnosis of:Deep Vein Thrombosis (DVT) or Pulmonary Embolism (PE)CRITICAL VALUE VERIFIED. CALLED TO JAE Harry10/07/21 Srikanth5 Earnestine Liu.RESULTS READ BACK BY SAME . Basophil percentageon 2020 Lactate [Moles/Vol] 1.5 mmol/L 0.4-2.0 [facility] Work Phone: INR in Blood by Coagulation assayon 10-06-2021 INR Coag (Bld) [Relative time] 1.1 {INR} [facility] Work Phone: Laboratory - Coagulationon 1 aPTT Coag (Bld) [Time] 27.3 s 24.1-36.2 [facility] Work Phone: PT Coag (PPP) [Time] 13.3 s 11.7-14.9 [facility] Work Phone: Laboratory - Microbiology an d Antimicrobial susceptibilityon 10-06-2021 Bacteria identified Cx Nom (Bld) No growth in 5 days. [facility] Work Phone: No Panel Informationon 10-06 Streptococcus pneumoniae Antigen (M [facility] Work Phone: No Panel Informationon 10-04 SARS-CoV-2 Antigen (Rapid) [facility] Work Phone: [facility] Note on 04-17-2018 [facility] Note Normal [facility] [place] Pat Eduon 04-15-2018 Pat Edu Normal [facility] [place] Patient Summary Documentson 04-15-2018 Patient Summary Documents Normal [facility] [place] Depart Summaryon 04-14-2018 Depart Summary Normal [facility] [place] Dis[place] Summary[place] 04-14-2018 [place] Dis[place] Summary Normal [facility] [place] [facility] Patient S ummaryon 04-14-2018 [place] [facility] Patient Summary Normal [facility] [place] Respiratory Therapy Progress Noteon 04-14-2018 Protein Normal [facility] [place] Respiratory Therapy Progress Noteon 04-13-2018 Protein Normal [facility] [place] .Auto Diffon 04-12-2018 Basophils Auto #/vol (Bld) 0.00 10 3/mcL Normal 0.00-0 .19 [facility] [place] Comment on above: Performed By: #### C BC, ADIFF, ANEU, BMP, GFR ####[address] [place], [place] [address] Basophils/100 WBC Auto (Bld) 0.3 % Normal 0.0-2.5 [facility] [place] Comment on above: Performed By: #### C BC, ADIFF, ANEU, BMP, GFR ####[address] [place], [place] [address] Eosinophils 0.00 10 3/mcL Normal 0.00-0.40 [facility] [place] Comment on above: Performed By: #### C BC, ADIFF, ANEU, BMP, GFR ####[address] [place], [place] [address] Eosinophils/100 leukocytes 0.0 % Normal 0.0-7.0 [facility] [place] Comment on above: Performed By: #### C BC, ADIFF, ANEU, BMP, GFR ####[address] [place], [place] [address] Lymphocytes 0.80 10 3/mcL Normal 0.77-3.85 [facility] [place] Comment on above: Performed By: #### C BC, ADIFF, ANEU, BMP, GFR ####[address] [place], [place] [address] Lymphocytes/100 leukocytes 9.7 % Low 10.0-50.0 [facility] [place] Comment on above: Performed By: #### C BC, ADIFF, ANEU, BMP, GFR ####[address] [place], [place] [address] Monocytes 0.70 10 3/mcL Normal 0.15-1.00 [facility] [place] Comment on above: Performed By: #### C BC, ADIFF, ANEU, BMP, GFR ####[address] [place], [place] [address] Monocytes/100 leukocytes 8.3 % Normal 1.7-13.0 [facility] [place] Comment on above: Performed By: #### C BC, ADIFF, ANEU, BMP, GFR ####[address] [place], [place] [address] Neutrophils/100 WBC Auto (Bld) 81.7 % High 37.0-80.0 [facility] [place] Comment on above: Performed By: #### C BC, ADIFF, ANEU, BMP, GFR ####[address] [place], [place] [address] .GFRon 04-12-2018 GFR Non- >60 Normal [facility] ([place] Comment on above: Result Comment: GFR Population mean for , Non- Americans Ages 20-29 = 116 mL/min/1.73 sq.m. Ages 30-39 = 107 mL/min/1.73 sq.m. Ages 40-49 = 99 mL/min/1.73 sq.m. Ages 50-59 = 93 mL/min/1.73 sq.m. Ages 60-69 = 85 mL/min/1.73 sq.m. Ages 70+ = 75 mL/min/1.73 sq.m.Chronic Kidney Disease: Less than 60 mL/min/1.73 square metersEnd Stage Renal Disease: Less than 15 mL/min/1.73 square meters Performed By: #### C BC, ADIFF, ANEU, BMP, GFR ####[address] [place], [place] [address] GFR >60 Normal [facility] ([place]) Comment on above: Result Comment: GFR Population mean for , Non- Americans Ages 20-29 = 116 mL/min/1.73 sq.m. Ages 30-39 = 107 mL/min/1.73 sq.m. Ages 40-49 = 99 mL/min/1.73 sq.m. Ages 50-59 = 93 mL/min/1.73 sq.m. Ages 60-69 = 85 mL/min/1.73 sq.m. Ages 70+ = 75 mL/min/1.73 sq.m.Chronic Kidney Disease: Less than 60 mL/min/1.73 square metersEnd Stage Renal Disease: Less than 15 mL/min/1.73 square meters Performed By: #### C BC, ADIFF, ANEU, BMP, GFR ####[address] [place], [place] [address] .NEUABSon 04-12-2018 Neutrophil, Absolute 7.10 10 3/mcL High 2.85-6.16 A [facility] ([place]) Comment on above: Performed By: #### C BC, ADIFF, ANEU, BMP, GFR ####[address] [place], [place] [address] BMPon 04-12-2018 BUN/Creatinine Ratio 26 ratio Normal 7-27 [facility] ([place]) Comment on above: Performed By: #### C BC, ADIFF, ANEU, BMP, GFR ####[address] [place], [place] [address] Calcium 8.9 mg/dL Normal 8.4-10.2 [facility] ([place] Comment on above: Performed By: #### C BC, ADIFF, ANEU, BMP, GFR ####[address] [place], [place] [address] Chloride 104 mmol/L Normal 98-107 [facility] ([place] Comment on above: Performed By: #### C BC, ADIFF, ANEU, BMP, GFR ####[address] [place], [place] [address] CO2 31 mmol/L High 22-29 [facility] ([place] Comment on above: Performed By: #### C BC, ADIFF, ANEU, BMP, GFR ####[address] [place], [place] [address] Creatinine 0.7 mg/dL Normal 0.6-1.2 [facility] ([place] Comment on above: Performed By: #### C BC, ADIFF, ANEU, BMP, GFR ####[address] [place], [place] [address] Electrolyte Balance 7.0 mEq/L Normal [facility] ([place]) Comment on above: Performed By: #### C BC, ADIFF, ANEU, BMP, GFR ####[address] [place], [place] [address] Glucose mass conc 123 mg/dL High 70-105 [facility] ([place] Comment on above: Performed By: #### C BC, ADIFF, ANEU, BMP, GFR ####[address] [place], [place] [address] Potassium molar conc 4.9 mmol/L Normal 3.5-5.1 [facility] ([place]) Comment on above: Performed By: #### C BC, ADHUSSAIN, ANEU, BMP, GFR ####[address] [place], [place] [address] Sodium 142 mmol/L Normal 136-146 [facility] ([place] Comment on above: Performed By: #### C BC, ADIFF, ANEU, BMP, GFR ####[address] [place], [place] [address] Urea nitrogen 18.2 mg/dL High 7.0-18.0 [facility] ([place] Comment on above: Performed By: #### C BC, ADIFF, ANEU, BMP, GFR ####[address] [place], [place] [address] CBCon 04-12-2018 Erythrocyte distribution width Auto Ratio (RBC) 12.8 % Normal 11.5-14.5 [facility] ([place] Comment on above: Performed By: #### C BC, ADHUSSAIN, ANEU, BMP, GFR ####[address] [place], [place] [address] Erythrocytes (RBC) 4.06 10 6/mcL Low 4.20-5.40 [facility] ([place]) Comment on above: Performed By: #### C BC, ADIFF, ANEU, BMP, GFR ####[address] [place] [phone] Hematocrit (HCT) 38.0 % Normal 37.0-47.0 [facility] ([place] Comment on above: Performed By: #### C BC, ADIFF, ANEU, BMP, GFR ####[address] [place] [address] Hemoglobin mass conc (Bld) 13.1 G/dL Normal 12.0-16.0 [facility] ([place] Comment on above: Performed By: #### C BC, ADIFF, ANEU, BMP, GFR ####[address] [place] [address] MCH 32.2 pg High 27.0-31.2 [facility] ([place] Comment on above: Performed By: #### C BC, ADIFF, ANEU, BMP, GFR ####[address] [place] [address] MCHC mass conc (RBC) 34.4 G/dL Normal 33.0-37.0 [facility] ([place]) Comment on above: Performed By: #### C BC, ADIFF, ANEU, BMP, GFR ####[address] [place] [phone] MCV 93.8 fL Normal 80.0-94.0 [facility] ([place] Comment on above: Performed By: #### C BC, ADIFF, ANEU, BMP, GFR ####[address] [place] [id number] Platelet mean volume (PMV) 9.6 fL Normal 7.4-10.4 [facility] ([place] Comment on above: Performed By: #### C BC, ADIFF, ANEU, BMP, GFR ####[address] [place], [place] [address] Platelets 167 10 3/mcL Normal 130-400 [facility] ([place] Comment on above: Performed By: #### C BC, ADIFF, ANEU, BMP, GFR ####[address] [place], [place] [address] WBC (Leukocytes) 8.70 10 3/mcL Normal 4.60-10.80 [facility] ([place]) Comment on above: Performed By: #### C BC, ADIFF, ANEU, BMP, GFR ####[address] [place], [place] [address] .Auto Diffon 04-11-2018 Basophils Auto #/vol (Bld) 0.10 10 3/mcL Normal 0.00-0 .19 [facility] ([place] Comment on above: Performed By: #### C BC, ADIFF, ANEU, TROP, BMP, GFR ####[address] [place], [place] [address] Basophils/100 WBC Auto (Bld) 0.8 % Normal 0.0-2.5 [facility] ([place] Comment on above: Performed By: #### C BC, ADIFF, ANEU, TROP, BMP, GFR ####[address] [place], [place] [address] Eosinophils 0.30 10 3/mcL Normal 0.00-0.40 [facility] ([place] Comment on above: Performed By: #### C BC, ADIFF, ANEU, TROP, BMP, GFR ####[address] [place], [place] [address] Eosinophils/100 leukocytes 2.7 % Normal 0.0-7.0 [facility] ([place] Comment on above: Performed By: #### C BC, ADIFF, ANEU, TROP, BMP, GFR ####[address] [place], [place] [address] Lymphocytes 1.20 10 3/mcL Normal 0.77-3.85 [facility] ([place] Comment on above: Performed By: #### C BC, ADIFF, ANEU, TROP, BMP, GFR ####[address] [place], [place] [address] Lymphocytes/100 leukocytes 11.6 % Normal 10.0-50.0 [facility] ([place] Comment on above: Performed By: #### C BC, ADIFF, ANEU, TROP, BMP, GFR ####[address] [place], [place] [address] Monocytes 0.40 10 3/mcL Normal 0.15-1.00 [facility] ([place] Comment on above: Performed By: #### C BC, ADIFF, ANEU, TROP, BMP, GFR ####[address] [place], [place] [address] Monocytes/100 leukocytes 3.8 % Normal 1.7-13.0 [facility] ([place] Comment on above: Performed By: #### C BC, ADIFF, ANEU, TROP, BMP, GFR ####[address] [place], [place] [address] Neutrophils/100 WBC Auto (Bld) 81.1 % High 37.0-80.0 [facility] ([place] Comment on above: Performed By: #### C BC, ADIFF, ANEU, TROP, BMP, GFR ####[address] [place], [place] [address] .GFRon 04-11-2018 GFR Non- >60 Normal [facility] ([place] Comment on above: Result Comment: GFR Population mean for , Non- Americans Ages 20-29 = 116 mL/min/1.73 sq.m. Ages 30-39 = 107 mL/min/1.73 sq.m. Ages 40-49 = 99 mL/min/1.73 sq.m. Ages 50-59 = 93 mL/min/1.73 sq.m. Ages 60-69 = 85 mL/min/1.73 sq.m. Ages 70+ = 75 mL/min/1.73 sq.m.Chronic Kidney Disease: Less than 60 mL/min/1.73 square metersEnd Stage Renal Disease: Less than 15 mL/min/1.73 square meters Performed By: #### C BC, ADIFF, ANEU, TROP, BMP, GFR ####[address] [place], [place] [address] GFR >60 Normal [facility] ([place]) Comment on above: Result Comment: GFR Population mean for , Non- Americans Ages 20-29 = 116 mL/min/1.73 sq.m. Ages 30-39 = 107 mL/min/1.73 sq.m. Ages 40-49 = 99 mL/min/1.73 sq.m. Ages 50-59 = 93 mL/min/1.73 sq.m. Ages 60-69 = 85 mL/min/1.73 sq.m. Ages 70+ = 75 mL/min/1.73 sq.m.Chronic Kidney Disease: Less than 60 mL/min/1.73 square metersEnd Stage Renal Disease: Less than 15 mL/min/1.73 square meters Performed By: #### C BC, ADIFF, ANEU, TROP, BMP, GFR ####[address] [place], [place] [address] .NEUABSon 04-11-2018 Neutrophil, Absolute 8.10 10 3/mcL High 2.85-6.16 A [facility] ([place]) Comment on above: Performed By: #### C BC, ADIFF, ANEU, TROP, BMP, GFR ####[address] [place], [place] [address] BMPon 04-11-2018 BUN/Creatinine Ratio 16 ratio Normal 7-27 [facility] ([place]) Comment on above: Performed By: #### C BC, ADIFF, ANEU, TROP, BMP, GFR ####[address] [place], [place] [address] Calcium 9.1 mg/dL Normal 8.4-10.2 [facility] ([place] Comment on above: Performed By: #### C BC, ADIFF, ANEU, TROP, BMP, GFR ####[address] [place], [place] [address] Chloride 102 mmol/L Normal 98-107 [facility] ([place] Comment on above: Performed By: #### C BC, ADIFF, ANEU, TROP, BMP, GFR ####[address] [place], [place] [address] CO2 31 mmol/L High 22-29 [facility] ([place] Comment on above: Performed By: #### C BC, ADIFF, ANEU, TROP, BMP, GFR ####[address] [place], [place] [address] Creatinine 0.9 mg/dL Normal 0.6-1.2 [facility] ([place] Comment on above: Performed By: #### C BC, ADIFF, ANEU, TROP, BMP, GFR ####[address] [place], [place] [address] Electrolyte Balance 9.0 mEq/L Normal [facility] ([place]) Comment on above: Performed By: #### C BC, ADIFF, ANEU, TROP, BMP, GFR ####[address] [place], [place] [address] Glucose mass conc 120 mg/dL High 70-105 [facility] ([place] Comment on above: Performed By: #### C BC, ADIFF, ANEU, TROP, BMP, GFR ####[address] [place], [place] [address] Potassium molar conc 3.5 mmol/L Normal 3.5-5.1 [facility] ([place]) Comment on above: Performed By: #### C BC, ADIFF, ANEU, TROP, BMP, GFR ####[address] [place], [place] [address] Sodium 142 mmol/L Normal 136-146 [facility] ([place] Comment on above: Performed By: #### C BC, ADIFF, ANEU, TROP, BMP, GFR ####[address] [place], [place] [address] Urea nitrogen 14.7 mg/dL Normal 7.0-18.0 [facility] ([place] Comment on above: Performed By: #### C BC, ADIFF, ANEU, TROP, BMP, GFR ####[address] [place], [place] [address] CBCon 04-11-2018 Erythrocyte distribution width Auto Ratio (RBC) 12.5 % Normal 11.5-14.5 [facility] ([place] Comment on above: Performed By: #### C BC, ADIFF, ANEU, TROP, BMP, GFR ####[address] [place] [phone] Erythrocytes (RBC) 4.58 10 6/mcL Normal 4.20-5.40 [facility] ([place]) Comment on above: Performed By: #### C BC, ADIFF, ANEU, TROP, BMP, GFR ####[address] [place] [address] Hematocrit (HCT) 42.6 % Normal 37.0-47.0 [facility] ([place] Comment on above: Performed By: #### C BC, ADIFF, ANEU, TROP, BMP, GFR ####[address] [place] [address] Hemoglobin mass conc (Bld) 14.6 G/dL Normal 12.0-16.0 [facility] ([place] Comment on above: Performed By: #### C BC, ADIFF, ANEU, TROP, BMP, GFR ####[address] [place] [address] MCH 31.8 pg High 27.0-31.2 [facility] ([place] Comment on above: Performed By: #### C BC, ADIFF, ANEU, TROP, BMP, GFR ####[address] [place] [id number] MCHC mass conc (RBC) 34.2 G/dL Normal 33.0-37.0 [facility] ([place]) Comment on above: Performed By: #### C BC, ADIFF, ANEU, TROP, BMP, GFR ####[address] [place] [address] MCV 92.9 fL Normal 80.0-94.0 [facility] ([place] Comment on above: Performed By: #### C BC, ADIFF, ANEU, TROP, BMP, GFR ####[address] [place] [address] Platelet mean volume (PMV) 9.4 fL Normal 7.4-10.4 [facility] ([place] Comment on above: Performed By: #### C BC, ADIFF, ANEU, TROP, BMP, GFR ####[address] [place], [place] [address] Platelets 174 10 3/mcL Normal 130-400 [facility]) Comment on above: Performed By: #### C BC, ADIFF, ANEU, TROP, BMP, GFR ####[address] [place], [place] [address] WBC (Leukocytes) 10.00 10 3/mcL Normal 4.60-10.80 [facility]) Comment on above: Performed By: #### C BC, ADIFF, ANEU, TROP, BMP, GFR ####[facility] [place] [place], [place] [address] [facility] Note on 04-11-2018 [facility] Note Normal [facility]) [place] [facility] and Physica awais 04-11-2018 [place] [facility] Physical Normal [facility] [facility]) Patient Summary Documentson 04-11-2018 Patient Summary Documents Normal [facility]) TROPon 04-11-2018 Troponin I.cardiac mass conc ng/mL Normal 0.00-0.30 [facility]) Comment on above: Result Comment: Belo w measuring range>=0.30 Consistent with cardiac damage, increased clinical risk and possibility of myocardial infarction. Serial measurements, clinical history, appropriate symptoms and/or ECG changes may help assess possibility of CT.*Other non-acute coronary syndrome conditions such as CHF, myocarditis, pulmonary emboli, sepsis and cardiac surgery could result in myocardial damage and increased troponin levels. Performed By: #### C BC, ADIFF, ANEU, TROP, BMP, GFR ####[id number] [place], [place] [address] XR CHEST 1 VIEWon 04-11-2018 XR CHEST 1 VIEW ORIGINALChest one view 7:52 AM 04/11/2018 HISTORY: Chest pain COMPARISON: 12/18/2017 The heart and pulmonary vessels are normal. No consolidation, atelectasis or pleural fluid seen. No acute osseous finding. Interpreted By: Pete Matosreliminary Report By: Pete Matos MDElectronically Signed By: Pete Matos MD Dictated Date: 04/11/2018 8:19:12 AM Prelim Date: 04/11/2018 8:19:12 AM Sign Date: 04/11/2018 8:19:33 AM Normal [facility] [place] [facility] Note on 12-21-2017 [facility] Note Normal [facility] Pat Eduon 12-18-2017 Pat Edu Normal [facility] Patient Summary Documentson 12-18-2017 Patient Summary Documents Normal [facility] XR CHEST 2 VIEWSon 8 XR CHEST 2 VIEWS ORIGINALXR CHEST 2 VIEWS CLINICAL STATEMENT: pain COMPARISON: 10/08/2013 FINDINGS:The cardiac contours are grossly stable. No vascular congestion or consolidation has developed. There is no pleural effusion or pneumothorax. The osseous structures are intact. IMPRESSION:No acute process Interpreted By: Selena Senareliminary Report By: Selena Sena MDElectronically Signed By: Selena Sena MD Dictated Date: 12/18/2017 3:36:57 PM Prelim Date: 12/18/2017 3:36:57 PM Sign Date: 12/18/2017 3:37:26 PM Normal [facility] XR HAND MINIMUM 3 VIEWS RIG Ton 12-18-2017 XR HAND MINIMUM 3 VIEWS RIGHT ORIGINALXR HAND MINIMUM 3 VIEWS RIGHT CLINICAL STATEMENT: pain COMPARISON: None FINDINGS: 3 images of the RIGHT hand were obtained. There is cortical irregularity to the base of the distal phalanx of the 1st digit with well-corticated margins suggesting this is a developmental or remote traumatic process. No associated soft tissue swelling is identified. Correlation for point tenderness is recommended. No additional fracture or dislocation is identified. There is no opaque foreign body. IMPRESSION:Probable remote change to the distal phalanx of the 1st digit. No acute process. Interpreted By: Selena Senareliminary Report By: Selena Sena MDElectronically Signed By: Selena Sena MD Dictated Date: 12/18/2017 3:37:38 PM Prelim Date: 12/18/2017 3:37:38 PM Sign Date: 12/18/2017 3:38:59 PM Normal [facility] XR WRIST MINIMUM 3 VIEWS RIG HTon 12-18-2017 XR WRIST MINIMUM 3 VIEWS RIGHT ORIGINALXR WRIST MINIMUM 3 VIEWS RIGHT CLINICAL STATEMENT: pain COMPARISON: None FINDINGS:Mild degenerative changes along the radial aspect of the intercarpal joints and 1st carpometacarpal joint is noted. There is no obvious cortical disruption to suggest an acute fracture. There is no elevation of the pronator fat pad or focal soft tissue swelling. IMPRESSION:No acute process Interpreted By: Selena Senareliminary Report By: Selena Sena MDElectronically Signed By: Selena Sena MD Dictated Date: 12/18/2017 3:39:09 PM Prelim Date: 12/18/2017 3:39:09 PM Sign Date: 12/18/2017 3:39:33 PM Normal [facility] [place] [facility] Note on 08-11-2017 [facility] Note Normal [facility] Patient Summary Documentson 08-11-2017 Patient Summary Documents Normal [facility]) Vital Signs Date Time Vital Sign Value Performing Clinician Facility 02-09-2025 11:03-0400 Body temperature 98.7 [degF] Dr. Sofy Richter DO Work Phone: [facility] 02-09-2025 11:03-0400 Diastolic blood pressure 60 mm[Hg] Dr. Sofy Richter DO Work Phone: [facility] 02-09-2025 11:03-0400 Heart rate 79 /min Dr. Sofy Richter DO Work Phone: [facility] 02-09-2025 11:03-0400 Respiratory rate 17 /min Dr. Sofy Richter DO Work Phone: [facility] 02-09-2025 11:03-0400 SaO2% (BldA) [Mass fraction] 95 % Dr. Sofy Richter DO Work Phone: [facility] 02-09-2025 11:03-0400 Systolic blood pressure 110 mm[Hg] Dr. Sofy Richter DO Work Phone: [facility] 02-09-2025 08:02-0400 Body height 170.[address] Sofy Richter DO Work Phone: [facility] 02-09-2025 08:02-0400 Body mass index (BMI) [Ratio] 29.7 kg/m2 Dr. Sofy Richter DO Work Phone: [facility] 02-09-2025 08:02-0400 Body temperature 97.3 [degF] Dr. Sofy Richter DO Work Phone: [facility] 02-09-2025 08:02-0400 Body weight 86.[address] Sofy Richter DO Work Phone: [facility] 02-09-2025 08:02-0400 Diastolic blood pressure 58 mm[Hg] Dr. Sofy Richter DO Work Phone: [facility] 02-09-2025 08:02-0400 Heart rate 76 /min Dr. Sofy Richter DO Work Phone: [facility] 02-09-2025 08:02-0400 Respiratory rate 18 /min Dr. Sofy Richter DO Work Phone: [facility] 02-09-2025 08:02-0400 SaO2% (BldA) [Mass fraction] 95 % Dr. Sofy Richter DO Work Phone: [facility] 02-09-2025 08:02-0400 Systolic blood pressure 104 mm[Hg] Dr. Sofy Richter DO Work Phone: [facility] 11-25-2024 13:00-0500 Body height 170.[address] Sofy Richter DO Work Phone: [facility] 11-25-2024 13:00-0500 Body weight 83.[address] Sofy Richter DO Work Phone: [facility] 11-25-2024 13:00-0500 Heart rate 96 /min Dr. Sofy Richter DO Work Phone: [facility] 11-25-2024 13:00-0500 SaO2% (BldA) [Mass fraction] 93 % Dr. Sofy Richter DO Work Phone: [facility] 10-10-2024 09:06-0500 Body mass index (BMI) [Ratio] 29 kg/m2 Dr. Sofy Richter DO Work Phone: [facility] 10-10-2024 09:06-0500 Body weight 83.[address] Sofy Richter DO Work Phone: [facility] 10-10-2024 09:06-0500 Diastolic blood pressure 67 mm[Hg] Dr. Sofy Richter DO Work Phone: [facility] 10-10-2024 09:06-0500 Heart rate 91 /min Dr. Sofy Richter DO Work Phone: [facility] 10-10-2024 09:06-0500 Respiratory rate 18 /min Dr. Sofy Richter DO Work Phone: [facility] 10-10-2024 09:06-0500 Systolic blood pressure 98 mm[Hg] Dr. Sofy Richter DO Work Phone: [facility] 10-03-2024 10:15-0500 Body temperature 97.2 [degF] Dr. Sofy Richter DO Work Phone: [facility] 10-03-2024 10:15-0500 Diastolic blood pressure 58 mm[Hg] Dr. Sofy Richter DO Work Phone: [facility] 10-03-2024 10:15-0500 Heart rate 74 /min Dr. Sofy Richter DO Work Phone: [facility] 10-03-2024 10:15-0500 Respiratory rate 16 /min Dr. Sofy Richter DO Work Phone: [facility] 10-03-2024 10:15-0500 SaO2% (BldA) [Mass fraction] 94 % Dr. Sofy Richter DO Work Phone: [facility] 10-03-2024 10:15-0500 Systolic blood pressure 107 mm[Hg] Dr. Sofy Richter DO Work Phone: [facility] 10-03-2024 08:48-0500 Body mass index (BMI) [Ratio] 28.3 kg/m2 Dr. Sofy Richter DO Work Phone: [facility] 10-03-2024 08:48-0500 Body weight [address] Sofy Richter DO Work Phone: [facility] 02-16-2024 01:34-0400 Body temperature 96.7 [degF] [facility] 02-16-2024 01:34-0400 Diastolic blood pressure 57 mm[Hg] [facility] 02-16-2024 01:34-0400 Heart rate 64 /min [facility] 02-16-2024 01:34-0400 Respiratory rate 18 /min [facility] 02-16-2024 01:34-0400 SaO2% (BldA) [Mass fraction] 93 % [facility] 02-16-2024 01:34-0400 Systolic blood pressure 103 mm[Hg] [facility] 02-15-2024 21:06-0400 Body height 167.64 cm [facility] 02-15-2024 21:06-0400 Body mass index (BMI) [Ratio] 27.7 kg/m2 [facility] 02-15-2024 21:06-0400 Body weight 78.01 kg [facility] 07-31-2023 08:52-0400 Body height 167.[address] Sofy Richter Work Phone: [facility] 07-31-2023 08:52-0400 Body mass index (BMI) [Ratio] 29.7 kg/m2 Dr. Sofy Richter Work Phone: [facility] 07-31-2023 08:52-0400 Body temperature 98.2 [degF] Dr. Sofy Richter Work Phone: [facility] 07-31-2023 08:52-0400 Body weight 83.[address] Sofy Richter Work Phone: [facility] 07-31-2023 08:52-0400 Diastolic blood pressure 69 mm[Hg] Dr. Sofy Richter Work Phone: [facility] 07-31-2023 08:52-0400 Heart rate 87 /min Dr. Sofy Richter Work Phone: [facility] 07-31-2023 08:52-0400 Respiratory rate 17 /min Dr. Sofy Richter Work Phone: [facility] 07-31-2023 08:52-0400 SaO2% (BldA) [Mass fraction] 94 % Dr. Sofy Richter Work Phone: [facility] 07-31-2023 08:52-0400 Systolic blood pressure 101 mm[Hg] Dr. Sofy Richter Work Phone: [facility] 07-27-2023 13:37-0400 Body mass index (BMI) [Ratio] 29.5 kg/m2 Dr. Sofy Richter Work Phone: [facility] 07-27-2023 13:37-0400 Body weight 83.[address] Sofy Richter Work Phone: [facility] 07-27-2023 13:37-0400 Diastolic blood pressure 67 mm[Hg] Dr. Sofy Richter Work Phone: [facility] 07-27-2023 13:37-0400 Heart rate 95 /min Dr. Sofy Richter Work Phone: [facility] 07-27-2023 13:37-0400 Respiratory rate 16 /min Dr. Sofy Richter Work Phone: [facility] 07-27-2023 13:37-0400 Systolic blood pressure 112 mm[Hg] Dr. Sfoy Richter Work Phone: [facility] 07-08-2023 03:51-0400 Diastolic blood pressure 74 mm[Hg] Dr. Sofy Richter Work Phone: [facility] 07-08-2023 03:51-0400 Heart rate 64 /min Dr. Sofy Richter Work Phone: [facility] 07-08-2023 03:51-0400 Respiratory rate 18 /min Dr. Sofy Richter Work Phone: [facility] 07-08-2023 03:51-0400 SaO2% (BldA) [Mass fraction] 99 % Dr. Sofy Richter Work Phone: [facility] 07-08-2023 03:51-0400 Systolic blood pressure 124 mm[Hg] Dr. Sofy Richter Work Phone: [facility] 07-08-2023 01:00-0400 Body height 167.[address] Sofy Richter Work Phone: [facility] 07-08-2023 01:00-0400 Body mass index (BMI) [Ratio] 31.3 kg/m2 Dr. Sofy Richter Work Phone: [facility] 07-08-2023 01:00-0400 Body temperature 97 [degF] Dr. Sofy Richter Work Phone: [facility] 07-08-2023 01:00-0400 Body weight 88.[address] Sofy Richter Work Phone: [facility] 06-08-2023 16:57-0400 Body temperature 98.4 [degF] Dr. Sofy Richter Work Phone: [facility] 06-08-2023 16:57-0400 Diastolic blood pressure 78 mm[Hg] Dr. Sofy Richter Work Phone: [facility] 06-08-2023 16:57-0400 Heart rate 74 /min Dr. Sofy Richter Work Phone: [facility] 06-08-2023 16:57-0400 Respiratory rate 14 /min Dr. Sofy Richter Work Phone: [facility] 06-08-2023 16:57-0400 SaO2% (BldA) [Mass fraction] 99 % Dr. Sofy Richter Work Phone: [facility] 06-08-2023 16:57-0400 Systolic blood pressure 134 mm[Hg] Dr. Sofy Richter Work Phone: [facility] 06-08-2023 15:10-0400 Body height 160.[address] Sofy Rcihter Work Phone: [facility] 06-08-2023 15:10-0400 Body mass index (BMI) [Ratio] 34.1 kg/m2 Dr. Sofy Richter Work Phone: [facility] 06-08-2023 15:10-0400 Body weight 87.[address] Sofy Richter Work Phone: [facility] 04-05-2023 16:42-0400 Body height 160.[address] Sofy Richter Work Phone: [facility] 04-05-2023 16:42-0400 Body mass index (BMI) [Ratio] 35.6 kg/m2 Dr. Sofy Richter Work Phone: [facility] 04-05-2023 16:42-0400 Body temperature 97.8 [degF] Dr. Sofy Richter Work Phone: [facility] 04-05-2023 16:42-0400 Body weight 91.[address] Sofy Richter Work Phone: [facility] 04-05-2023 16:42-0400 Diastolic blood pressure 60 mm[Hg] Dr. Sofy Richter Work Phone: [facility] 04-05-2023 16:42-0400 Heart rate 87 /min Dr. Sofy Richter Work Phone: [facility] 04-05-2023 16:42-0400 Respiratory rate 16 /min Dr. Sofy Richter Work Phone: [facility] 04-05-2023 16:42-0400 SaO2% (BldA) [Mass fraction] 94 % Dr. Sofy Richter Work Phone: [facility] 04-05-2023 16:42-0400 Systolic blood pressure 102 mm[Hg] Dr. Sofy Richter Work Phone: [facility] 01-29-2023 08:42-0400 Body height 160.[address] Sofy Richter Work Phone: [facility] 01-29-2023 08:42-0400 Body mass index (BMI) [Ratio] 33.1 kg/m2 Dr. Sofy Richter Work Phone: [facility] 01-29-2023 08:42-0400 Body temperature 97.6 [degF] Dr. Sofy Richter Work Phone: [facility] 01-29-2023 08:42-0400 Body weight 84.[address] Sofy Richter Work Phone: [facility] 01-29-2023 08:42-0400 Diastolic blood pressure 67 mm[Hg] Dr. Sofy Richter Work Phone: [facility] 01-29-2023 08:42-0400 Heart rate 83 /min Dr. Sofy Richter Work Phone: [facility] 01-29-2023 08:42-0400 Respiratory rate 18 /min Dr. Sofy Richter Work Phone: [facility] 01-29-2023 08:42-0400 SaO2% (BldA) [Mass fraction] 97 % Dr. Soyf Richter Work Phone: [facility] 01-29-2023 08:42-0400 Systolic blood pressure 116 mm[Hg] Dr. Sofy Richter Work Phone: [facility] 11-26-2022 20:50-0500 Respiratory rate 16 /min Dr. Sofy Richter Work Phone: [facility] 11-26-2022 19:16-0500 Heart rate 80 /min Dr. Sofy Richter Work Phone: [facility] 11-26-2022 16:52-0500 Diastolic blood pressure 72 mm[Hg] Dr. Sofy Richter Work Phone: [facility] 11-26-2022 16:52-0500 Systolic blood pressure 111 mm[Hg] Dr. Sofy Richter Work Phone: [facility] 11-26-2022 16:50-0500 Body height 160.[address] Sofy Richter Work Phone: [facility] 11-26-2022 16:50-0500 Body mass index (BMI) [Ratio] 34.2 kg/m2 Dr. Sofy Richter Work Phone: [facility] 11-26-2022 16:50-0500 Body temperature 96.2 [degF] Dr. Sofy Richter Work Phone: [facility] 11-26-2022 16:50-0500 Body weight 87.[address] Sofy Richter Work Phone: [facility] 11-26-2022 16:50-0500 SaO2% (BldA) [Mass fraction] 91 % Dr. Sofy Richter Work Phone: [facility] 11-12-2022 16:40-0500 SaO2% (BldA) [Mass fraction] 96 % Dr. Sofy Richter Work Phone: [facility] 11-12-2022 16:25-0500 Heart rate 78 /min Dr. Sofy Richter Work Phone: [facility] 11-12-2022 16:25-0500 Respiratory rate 16 /min Dr. Sofy Richter Work Phone: [facility] 11-12-2022 15:39-0500 Body mass index (BMI) [Ratio] 34.5 kg/m2 Dr. Sofy Richter Work Phone: [facility] 11-12-2022 15:39-0500 Body temperature 98 [degF] Dr. Sofy Richter Work Phone: [facility] 11-12-2022 15:39-0500 Body weight 88.[address] Sofy Richter Work Phone: [facility] 11-12-2022 15:39-0500 Diastolic blood pressure 75 mm[Hg] Dr. Sofy Richter Work Phone: [facility] 11-12-2022 15:39-0500 Systolic blood pressure 96 mm[Hg] Dr. Sofy Richter Work Phone: [facility] 09-01-2022 14:13-0500 Body temperature 97.5 [degF] Dr. Sofy Richter Work Phone: [facility] 09-01-2022 14:13-0500 Diastolic blood pressure 70 mm[Hg] Dr. Sofy Richter Work Phone: [facility] 09-01-2022 14:13-0500 Heart rate 99 /min Dr. Sofy Richter Work Phone: [facility] 09-01-2022 14:13-0500 Respiratory rate 17 /min Dr. Sofy Richter Work Phone: [facility] 09-01-2022 14:13-0500 SaO2% (BldA) [Mass fraction] 95 % Dr. Sofy Richter Work Phone: [facility] 09-01-2022 14:13-0500 Systolic blood pressure 112 mm[Hg] Dr. Sofy Richter Work Phone: [facility] 07-24-2022 11:16-0400 Body temperature 97.2 [degF] Dr. Sofy Richter Work Phone: [facility] Work Phone: 07-24-2022 11:16-0400 Diastolic blood pressure 78 mm[Hg] Dr. Sofy Richter Work Phone: [facility] Work Phone: 07-24-2022 11:16-0400 Heart rate 87 /min Dr. Sofy Richter Work Phone: [facility] Work Phone: 07-24-2022 11:16-0400 Respiratory rate 16 /min Dr. Sofy Richter Work Phone: [facility] Work Phone: 07-24-2022 11:16-0400 SaO2% (BldA) [Mass fraction] 93 % Dr. Sofy Richter Work Phone: [facility] Work Phone: 07-24-2022 11:16-0400 Systolic blood pressure 122 mm[Hg] Dr. Sofy Richter Work Phone: [facility] Work Phone: 04-18-2022 13:01-0400 Body height 160.[address] Sofy Richter Work Phone: [facility] Work Phone: 04-18-2022 13:01-0400 Body mass index (BMI) [Ratio] 35 kg/m2 Dr. Sofy Richter Work Phone: [facility] Work Phone: 04-18-2022 13:01-0400 Body weight 89.[address] Sofy Richter Work Phone: [facility] Work Phone: 04-18-2022 13:01-0400 Diastolic blood pressure 70 mm[Hg] Dr. Sofy Richter Work Phone: [facility] Work Phone: 04-18-2022 13:01-0400 Heart rate 102 /min Dr. Sofy Richter Work Phone: [facility] Work Phone: 04-18-2022 13:01-0400 Respiratory rate 16 /min Dr. Sofy Richter Work Phone: [facility] Work Phone: 04-18-2022 13:01-0400 SaO2% (BldA) [Mass fraction] 97 % Dr. Sofy Richter Work Phone: [facility] Work Phone: 04-18-2022 13:01-0400 Systolic blood pressure 98 mm[Hg] Dr. Sofy Richter Work Phone: [facility] Work Phone: 04-04-2022 11:21-0400 Body mass index (BMI) [Ratio] 35 kg/m2 Dr. Sofy Richter Work Phone: [facility] Work Phone: 04-04-2022 11:21-0400 Body temperature 96.9 [degF] Dr. Sofy Richter Work Phone: [facility] Work Phone: 04-04-2022 11:21-0400 Body weight 89.[address] Sofy Richter Work Phone: [facility] Work Phone: 04-04-2022 11:21-0400 Diastolic blood pressure 74 mm[Hg] Dr. Sofy Richter Work Phone: [facility] Work Phone: 04-04-2022 11:21-0400 Heart rate 90 /min Dr. Sofy Richter Work Phone: [facility] Work Phone: 04-04-2022 11:21-0400 Respiratory rate 16 /min Dr. Sofy Richter Work Phone: [facility] Work Phone: 04-04-2022 11:21-0400 SaO2% (BldA) [Mass fraction] 94 % Dr. Sofy Richter Work Phone: [facility] Work Phone: 04-04-2022 11:21-0400 Systolic blood pressure 114 mm[Hg] Dr. Sofy Richter Work Phone: [facility] Work Phone: 01-28-2022 17:09-0400 Diastolic blood pressure 68 mm[Hg] Dr. Sofy Richter Work Phone: [facility] Work Phone: 01-28-2022 17:09-0400 Heart rate 68 /min Dr. Sofy Richter Work Phone: [facility] Work Phone: 01-28-2022 17:09-0400 Respiratory rate 16 /min Dr. Sofy Richter Work Phone: [facility] Work Phone: 01-28-2022 17:09-0400 SaO2% (BldA) [Mass fraction] 98 % Dr. Sofy Richter Work Phone: [facility] Work Phone: 01-28-2022 17:09-0400 Systolic blood pressure 104 mm[Hg] Dr. Sfoy Richter Work Phone: [facility] Work Phone: 01-28-2022 16:00-0400 Body temperature 97.9 [degF] Dr. Sofy Richter Work Phone: [facility] Work Phone: 01-28-2022 13:27-0400 Body height 160.[address] Sofy Richter Work Phone: [facility] Work Phone: 01-28-2022 13:27-0400 Body mass index (BMI) [Ratio] 35.9 kg/m2 Dr. Sofy Richter Work Phone: [facility] Work Phone: 01-28-2022 13:27-0400 Body weight [address] Sofy Richter Work Phone: [facility] Work Phone: 10-10-2021 14:00-0500 Body temperature 97.7 [degF] Dr. Sofy Richter Work Phone: [facility] Work Phone: 10-10-2021 14:00-0500 Diastolic blood pressure 65 mm[Hg] Dr. Sofy Richter Work Phone: [facility] Work Phone: 10-10-2021 14:00-0500 Heart rate 92 /min Dr. Sofy Richter Work Phone: [facility] Work Phone: 10-10-2021 14:00-0500 Respiratory rate 18 /min Dr. Sofy Richter Work Phone: [facility] Work Phone: 10-10-2021 14:00-0500 SaO2% (BldA) [Mass fraction] 93 % Dr. Sofy Richter Work Phone: [facility] Work Phone: 10-10-2021 14:00-0500 Systolic blood pressure 101 mm[Hg] Dr. Sofy Richter Work Phone: [facility] Work Phone: 10-06-2021 13:31-0500 Body weight 87.[address] Sofy Richter Work Phone: [facility] Work Phone: 10-06-2021 12:01-0500 Body mass index (BMI) [Ratio] 32.1 kg/m2 Dr. Sofy Richter Work Phone: [facility] Work Phone: 10-06-2021 10:49-0500 Inhaled oxygen concentration 93 % Dr. Sofy Richter Work Phone: [facility] Work Phone: 10-04-2021 18:20-0500 Body mass index (BMI) [Ratio] 30.5 kg/m2 Dr. Sofy Richter Work Phone: [facility] Work Phone: 10-04-2021 18:20-0500 Body temperature 96.5 [degF] Dr. Sofy Richter Work Phone: [facility] Work Phone: 10-04-2021 18:20-0500 Body weight 88.[address] Sofy Richter Work Phone: [facility] Work Phone: 10-04-2021 18:20-0500 Diastolic blood pressure 94 mm[Hg] Dr. Sofy Richter Work Phone: [facility] Work Phone: 10-04-2021 18:20-0500 Heart rate 106 /min Dr. Sofy Richter Work Phone: [facility] Work Phone: 10-04-2021 18:20-0500 Respiratory rate 18 /min Dr. Sofy Richter Work Phone: [facility] Work Phone: 10-04-2021 18:20-0500 SaO2% (BldA) [Mass fraction] 92 % Dr. Sofy Richter Work Phone: [facility] Work Phone: 10-04-2021 18:20-0500 Systolic blood pressure 131 mm[Hg] Dr. Sofy Richter Work Phone: [facility] Work Phone: Encounters Encounter Date Encounter Type Care Provider Facility Start: 04-24-2025 End: 04-24-[address] Sofy Richter DO Work Phone: [facility] [place] Start: 04-24-2025 End: 04-24-[address] Mikie Ku DO -[facility] [place] Work Phone: Start: 04-24-2025 End: 04-24-2025 ambulatory Mikie Ku Facility:[facility] Start: 04-13-2025 End: 04-13-[address] Sofy Richter DO Work Phone: -[facility] [place] Start: 04-13-2025 End: 04-13-[address] Sofy Richter DO -[facility] [place] Work Phone: Start: 04-13-2025 End: 04-13-2025 ambulatory Sofy Richter Facility:[facility] Start: 02-09-2025 End: 02-09-2025 Patient encounter procedure Terrence Oswald [place] -[facility] Work Phone: Start: 02-09-2025 End: 02-09-2025 ambulatory Sofy Richter Facility:[facility] Start: 02-09-2025 End: 02-09-2025 Patient encounter procedure Sarah BRANDTC -[facility] Work Phone: Start: 02-09-2025 End: 02-09-2025 ambulatory Sofy Richter Facility:[facility] Start: 12-18-2024 Non-patient / Non-visit Dr. Jose Quispe DO -[facility] Start: 12-18-2024 End: 12-18-[address] Sofy Richter DO Work Phone: [facility] Work Phone: Start: 12-18-2024 End: 12-18-2024 Patient encounter procedure Sarah Pat [facility]ER-[facility] -Pulmonary Services/Neurology Work Phone: Start: 12-18-2024 End: 12-18-2024 ambulatory Sofy Malys Facility:[facility] Start: 12-01-2024 ambulatory Jose Jose Enrique Facility:[facility] Start: 12-01-2024 Non-patient / Non-visit Dr. Jose Quispe DO -[facility] Start: 11-25-2024 End: 11-25-2024 Patient encounter procedure Sarah Pat [employer] [facility]ER-[facility] -[facility]/Neurology Work Phone: Start: 11-25-2024 End: 11-25-2024 ambulatory Sofy Malys Facility:[facility] Start: 10-27-2024 ambulatory Sofy Malys Facility:[facility] Start: 10-27-2024 Non-patient / Non-visit Dr. Yamil Merino MD -[facility] Start: 10-27-2024 End: 10-27-[address] Yamil Merino MD -Cardiovascular Services Work Phone: Start: 10-27-2024 End: 10-27-2024 [facility] Start: 10-10-2024 End: 10-10-[address] Yamil Merino MD -[facility] Work Phone: Start: 10-10-2024 End: 10-10-2024 ambulatory Sofy Malys Facility:[facility] Start: 10-03-2024 Non-patient / Non-visit Dr. Miguel Angel Almendarez MD -[facility] Start: 10-03-2024 End: 10-03-2024 Admission to same day surgery center Dr. Miguel Angel Almendarze MD -Endoscopy Work Phone: Start: 10-03-2024 End: 10-03-2024 ambulatory Miguel Angel Almendarez Facility:[facility] Start: 09-26-2024 End: 09-26-2024 Patient encounter procedure Sarah Pat NP-C -Cat Scan, [facility] Work Phone: Start: 09-26-2024 End: 09-26-2024 ambulatory Sofy Malys Facility:[facility] Start: 09-18-2024 End: 09-18-[address] Sofy Richter -[facility]ic[facility] Start: 09-18-2024 End: 09-18-2024 ambulatory Sofy Richter Facility:[facility] Start: 08-27-2024 End: 08-27-2024 ambulatory Sofyshane Delgadilloisela Facility:[facility] Start: 08-04-2024 ambulatory Sofy Richter Facility:[facility] Start: 07-01-2024 End: 07-01-2024 ambulatory Miguel Angel Almendarez Facility:[facility] Start: 06-25-2024 End: 06-25-2024 ambulatory Sofy Richter Facility:[facility] Start: 06-12-2024 End: 06-12-2024 [facility] Start: 05-14-2024 End: 05-14-2024 [facility] Start: 02-15-2024 End: 02-16-2024 [facility] Start: 02-06-2024 End: 02-06-2024 ambulatory [facility] Work Phone: Start: 02-06-2024 End: 02-06-2024 Patient encounter procedure [facility] Work Phone: Start: 12-13-2023 End: 12-13-[address] Sofy Richter Work Phone: [facility] Work Phone: Start: 12-13-2023 End: 12-13-[address] [facility] Start: 11-06-2023 End: 11-06-[address] Sofy Richter Work Phone: [facility] Work Phone: Start: 11-06-2023 End: 11-06-[address] Sofy Richter Work Phone: [facility]-Physical Therapy Work Phone: Start: 10-10-2023 End: 10-10-[address] Sofy Richter Work Phone: [facility] Work Phone: Start: 09-19-2023 End: 09-19-[address] Sofy Richter Work Phone: [facility] Work Phone: Start: 09-19-2023 End: 09-19-[address] Sofy Richter Work Phone: [facility], [facility] Work Phone: Start: 09-19-[address] Sofy Richter Work Phone: [facility]-Physical Therapy Work Phone: Start: 08-13-2023 End: 08-13-[address] Sofy Richter Work Phone: [facility] Work Phone: Start: 08-13-2023 End: 08-13-[address] Sofy Richter Work Phone: [facility] Start: 07-31-2023 End: 07-31-[address] Sofy Richter Work Phone: [facility]-Pulmonary Medicine [facility] Work Phone: Start: 07-27-2023 End: 07-27-[address] Sofy Richter Work Phone: [facility] Work Phone: Start: 07-08-2023 End: 07-08-2023 Emergency department patient visit Dr. Sofy Richter Work Phone: [facility]-Emergency Department Work Phone: Start: 07-05-[address] Sof[facility] Rich[facility] Start: 06-29-2023 End: 06-29-[address] Sofy Richter Work Phone: [facility] Work Phone: Start: 06-18-[address] Sof[facility] Rich[facility] Start: 06-15-2023 End: 06-15-[address] Sofy Richter Work Phone: [facility] Work Phone: Start: 06-15-2023 End: 06-15-[address] Sofy Richter Work Phone: [facility] [place] Work Phone: Start: 06-08-2023 End: 06-08-2023 Emergency department patient visit Dr. Sofy Richter Work Phone: [facility]-Emergency Department Work Phone: Start: 05-30-[address] Sof[facility] Richter [facility] Start: 05-03-2023 End: 05-03-[address] Sofy Richter Work Phone: [facility] Work Phone: Start: 05-03-2023 End: 05-03-[address] Sof[facility] Richter [facility] Work Phone: Start: 04-05-2023 End: 04-05-[address] Sofy Richter Work Phone: [facility] Work Phone: Start: 04-05-2023 End: 04-05-[address] Sofy Richter Work Phone: [facility] Work Phone: Start: 04-05-2023 End: 04-05-[address] Sofy Richter Work Phone: [facility] Work Phone: Start: 03-08-2023 End: 03-08-[address] Sofy Richter Work Phone: [facility] Work Phone: Start: 03-08-2023 End: 03-08-[address] Sofy Richter Work Phone: [facility]-Laboratory, Specimen Start: 01-29-2023 End: 01-29-[address] Sof[facility] Richter [facility] Start: 12-14-2022 End: 12-14-[address] Sofy Richter Work Phone: [facility] Work Phone: Start: 12-14-2022 End: 12-14-[address] Sofy Richter Work Phone: [facility] Start: 11-26-2022 End: 11-26-2022 Emergency department patient visit Dr. Sofy Richter Work Phone: [facility]-Emergency Department Start: 11-12-2022 End: 11-12-2022 Emergency department patient visit Dr. Sofy Richter Work Phone: [facility]-Emergency Department Start: 09-01-2022 End: 09-01-[address] Sofy Richter Work Phone: [facility] Work Phone: Start: 09-01-2022 End: 09-01-[address] Sofy Richter Work Phone: [facility] Start: 07-24-2022 End: 07-24-[address] Sofy Richter Work Phone: [facility] Start: 06-02-2022 End: 06-02-[address] Soyf Richter Work Phone: [facility] Work Phone: Start: 06-02-2022 End: 06-02-[address] Sofy Richter Work Phone: [facility] Start: 04-18-2022 End: 04-18-[address] Sofy Richter Work Phone: [facility] Start: 04-04-2022 End: 04-04-[address] Sof[facility] Richter [facility] Start: 01-28-2022 End: 01-28-2022 Emergency department patient visit Dr. Sofy Richter Work Phone: [facility]-Emergency Department Start: 10-10-2021 Non-patient / Non-visit Dr. Sofy Richter Work Phone: [facility] Start: 10-09-2021 Non-patient / Non-visit Dr. Sofy Richter Work Phone: [facility] Start: 10-08-2021 Non-patient / Non-visit Dr. Sofy Richter Work Phone: [facility] Start: 10-07-2021 Non-patient / Non-visit Dr. Sofy Richter Work Phone: [facility] Start: 10-06-2021 End: 10-10-2021 Evaluation and management of inpatient Dr. Sofy Richter Work Phone: [facility]-Medical Surgical 3 Start: 10-04-2021 End: 10-04-2021 Emergency department patient visit Dr. Sofy Rihcter Work Phone: [facility]-Emergency Department Start: 04-15-2018 End: 04-15-2018 Emergency department patient visit ELIJAH ROTHMAN Facility:[facility] Start: 04-11-2018 End: 04-14-2018 Evaluation and management of inpatient ELIJAH ROTHMAN Facility:[facility] Start: 12-18-2017 End: 12-18-2017 Emergency department patient visit KORI GARCÍA Facility:[facility] Start: 08-11-2017 End: 08-11-2017 [facility] Procedures Date Procedure Procedure Detail Performing Clinician Start: 04-24-2025 End: 04-24-2025 XR forearm, [address] Sofy Richter DO Work Phone: Start: 04-24-2025 End: 04-24-2025 Plain x-ray of hand Dr. Sofy Richter DO Work Phone: Start: 04-13-2025 Plain X-ray abdomen Dr. Sofy Richter DO Work Phone: Start: 10-27-2024 Cardiovascular stress test using pharmacologic stress agent Dr. Sofy Richter DO Work Phone: Start: 09-26-[address] Sofy Richter DO Work Phone: Start: 09-18-[address] Sofy Richter DO Work Phone: Start: 02-15-2024 Plain chest X-ray Start: 02-15-2024 SARS-CoV-2, Influenza & RSV (PCR) Start: 09-19-[address] Sofy Richter Work Phone: Start: 08-13-[address] Sofy Richter Work Phone: Start: 07-08-2023 CT of head without contrast Dr. Sofy Richter Work Phone: Start: 06-29-2023 Computed tomography of abdomen and pelvis with intravenous contrast Dr. Sofy Richter Work Phone: Start: 06-15-2023 X-ray of lumbosacral spine Dr. Sofy Richter Work Phone: Start: 06-08-2023 Computed tomography of abdomen and pelvis with intravenous contrast Dr. Sofy Richter Work Phone: Start: 05-03-[address] Sofy Richter Work Phone: Start: 04-05-2023 Plain X-ray of femur Dr. Sofy Richter Work Phone: Start: 03-08-[address] Sofy Richter Work Phone: Start: 11-26-2022 Plain chest X-ray Dr. Sofy Richter Work Phone: Start: 11-12-2022 Plain chest X-ray Dr. Sofy Richter Work Phone: Start: 09-01-2022 X-ray of both feet Dr. Sofy Richter Work Phone: Start: 01-28-2022 Plain chest X-ray Dr. Sofy Richter Work Phone: Start: 10-07-2021 CT angiography of chest with contrast Dr. Sofy Richter Work Phone: Start: 10-07-2021 Investigation of transfusion reaction Dr. Sofy Richter Work Phone: Start: 10-07-[address] Sofy Richter Work Phone: Start: 10-06-2021 Bacteria identified in Blood by Culture Dr. Sofy Richter Work Phone: Start: 10-06-2021 End: 10-06-2021 Legionella pneumophila antigen assay Dr. Sofy Richter Work Phone: Start: 10-06-2021 Streptococcus pneumoniae Antigen (M Dr. Sofy Richter Work Phone: Start: 10-06-2021 Plain chest X-ray Dr. Sofy Richter Work Phone: Start: 10-04-2021 Plain chest X-ray Dr. Sofy Richter Work Phone: Start: 10-04-2021 SARS-CoV-2 Antigen (Rapid) Dr. Sofy Richter Work Phone: H/O: section History of section Dr. Sofy Richter Work Phone: H/O: surgery History of dilat ation and curettage Dr. Sofy Richter Work Phone: History of appendectomy History of append ectomy Dr. Sofy Richter Work Phone: History of cholecystectomy History of cholecystectomy Dr. Sofy Richter Work Phone: SARS-CoV-2 & FLU Ant igen (Rapid) Dr. Sofy Richter Work Phone: SARS-CoV-2 & FLU Ant igen (Rapid) Dr. Sofy Richter Work Phone: Urine culture Dr. Sofy Richter Work Phone: Plan of Treatment Date Care Activity Detail Author Start: 10-03-2024 Colonoscopy flx dx w/collj spec when pfrmd DIAGNOSTIC COLONOSCOPY [facility] Start: 10-03-2024 Patient discharge [facility] Start: 02-16-2024 [facility] Start: 02-16-2024 [facility] Start: 02-15-2024 [facility] Start: 07-08-2023 Insj non-ndwellg nicole dder catheter INSERT BLADDER CATHETER [facility] Start: 06-08-2023 [facility] Start: 11-26-2022 [facility] Chest [facility] Work Phone: CT Chest [facility] CT Chest [facility] Lactoferrin [Presenc e] in Stool by Immunoassay [facility] Patient Education [facility] Work Phone: Patient referral [facility] Work Phone: Protein measurement [facility] Immunizations Immunization Date Immunization Notes Care Provider Fa cility 07-08-[address] Sofy Richter Work Phone: [facility] 07-06-2020 Flucelvax Quad 2019- 2020 (PF) (flu vac qs 2020(4 yr up)CD(PF)) 60 mcg ([address] Sofy Richter Work Phone: [facility] Work Phone: 07-06-2020 influenza, injectable,quadrivalent, preservative free, pediatric Dr. Sofy Richter Work Phone: [facility] 07-10-2018 Fluad 2018-19 65yr up(PF)45 mcg(15 mcgx3)/0.5 mL intramuscular syringe (flu vac Dr. Sofy Richter Work Phone: [facility] Work Phone: Payers Date Payer Category Payer Self-pay [id number] 2016 Unknown [id number] Unknown [id number] 2.16.8 [id number] Unknown [id number] 2.16.8 [id number] Unknown [id number] 2.16.8 [id number] Unknown [id number] 2.16.8 40.1.272852.3.579.2.462 Unknown [id number] 2.16.8 40.1.594250.3.579.2.462 Unknown [id number] 2.16.8 40.1.549320.3.579.2.462 Unknown [id number] 2.16.8 40.1.847000.3.579.2.462 Unknown [id number] 2.16.8 40.1.334381.3.579.2.462 Unknown [id number] 2.16.8 40.1.677070.3.579.2.462 Unknown [id number] 2.16.8 40.1.329366.3.579.2.462 Unknown [id number] 2.16.8 40.1.148889.3.579.2.462 Unknown [id number] 2.16.8 40.1.787937.3.579.2.462 Unknown [id number] 2.16.8 40.1.790023.3.579.2.462 Unknown [id number] 2.16.8 40.1.163146.3.579.2.462 Unknown [id number] 2.16.8 40.1.333305.3.579.2.462 Unknown [id number] 2.16.8 40.1.185027.3.579.2.462 Unknown [id number] 2.16.8 40.1.374806.3.579.2.462 Unknown [id number] 2.16.8 40.1.832566.3.579.2.462 Unknown [id number] 2.16.8 40.1.287673.3.579.2.462 Unknown [id number] 2.16.8 40.1.065432.3.579.2.462 Unknown [id number] 2.16.8 40.1.802607.3.579.2.462 Social History Date Type Detail Facility Start: 01-28-2022 End: 07-31-2023 Tobacco smoking status MAIS Unknown if ever smoked [facility] Start: 01-24-2019 None [facility] Start: 01-24-2019 Alone [facility] Start: 1965 Sex Assigned At Female [facility] Start: 09-26-2024 Tobacco smoking stat us NHIS Ex-smoker (finding) [facility] Start: 12-30-2024 Sex Female (finding) [facility] Goals Date Patient Goal Desired Activity /State Functional Status Date Assessment Result Facility 10-10-2021 Functional status Bedside Commode [facility] Work Phone: Mental Status Date Assessment Result Facility 10-03-2024 Cognitive function Voice/Name;Touch/Shaki ng [facility] Work Phone: 07-08-2023 Cognitive function Level Of Cons ciousness Awake;Alert;Appropriate [facility] Work Phone: 01-28-2022 Cognitive function Awake;Alert;A ppropriate;Follow s Commands [facility] Work Phone: 10-10-2021 Cognitive function Comprehension Ability Demonstrates ability to follow instructions/comprehend [facility] Work Phone: 10-09-2021 Cognitive function Voice/Name [facility] Work Phone: Clinical Notes 06-08-2023 to 04-25-2025 Note Date & Type Note Facility 04-25-2025 Radiology Diagnostic study note [facility] Imaging Services [address] [place], [place] [address] Hand Min 3 Views MR#: [id number] Acct: [id number] Name: ALEXEI FOWLER Rep #: [id number] : 1965 F 60 From: Kuldip Estes DO PCP: Dr. Sofy Richter DO Status: REG CLI Study:Hand Min 3 Views Date of Exam: Exam# [id number] Ordering Dr: Porfirio Ku MD PROCEDURE: HAND MIN 3 VIEWS 04/24/2025 REASON FOR EXAM: PAIN TECHNIQUE: HAND MIN 3 VIEWS COMPARISON: None FINDINGS: Bones: Unremarkable. Normal bone mineral density is noted involving the osseous structures of the left hand. There are no fractures or dislocations. Joints: Joint spaces are well preserved. Soft tissues: No soft tissue edema is noted. RAD/Hand Min 3 Views IMPRESSION: Unremarkable left hand study. Reading Location: [id number] CC: Dr. Sofy Richter DO; Dr. Porfirio Ku MD ~ 911 Emergency Dispatcher: Signed [facility] 04-25-2025 Radiology Diagnostic study note [facility] Imaging Services [address] [place] [address] Hand Min 3 Views MR#: [id number] Acct: [id number] Name: MALCOLMALEXEI J Rep #: [id number] : 1965 F 60 From: Kuldip Estes DO PCP: Dr. Sofy Richter DO Status: REG CLI Study:Hand Min 3 Views Date of Exam: Exam# [id number] Ordering Dr: Mikie Ku DO PROCEDURE: HAND MIN 3 VIEWS 04/24/2025 REASON FOR EXAM: PAIN TECHNIQUE: HAND MIN 3 VIEWS COMPARISON: None FINDINGS: Bones: Unremarkable. Normal bone mineral density is noted involving the osseousstructures of the right hand. There are no fractures or dislocations. Joints: Joint spaces are well preserved. Soft tissues: No soft tissue edema is noted. RAD/Hand Min 3 Views IMPRESSION: Unremarkable right hand study. Reading Location: [id number] CC: Dr. Sofy Richter DO; Dr. Mikie Ku DO ~ 911 Emergency Dispatcher: Signed [facility] 04-25-2025 Radiology Diagnostic study note [facility] Imaging Services [address] [place] [address] Forearm 2 Views MR#: [id number] Acct: [id number] Name: ALEXEI FOWLER Rep #: [id number] : 1965 F 60 From: Kuldip Estes DO PCP: Dr. Sofy Richter DO Status: REG CLI Study:Forearm 2 Views Date of Exam: 04/07 06/01 Exam# [id number] Ordering Dr: Mikie Ku DO PROCEDURE: FOREARM 2 VIEWS 04/24/2025 REASON FOR EXAM: PAIN TECHNIQUE: FOREARM 2 VIEWS COMPARISON: None FINDINGS: Bones: Unremarkable. There are no fractures or dislocations. There is normal bone mineral density of the osseous structures of the left forearm. Joints: Wrist joints and elbow joints appear unremarkable. There are no joint effusions. Soft tissues: No appreciable soft tissue swelling is noted. RAD/Forearm 2 Views IMPRESSION: Unremarkable left forearm study. Reading Location: [facility] CC: Dr. Sofy Richter DO; Dr. Mikie Ku DO ~ 911 Emergency Dispatcher: Signed [facility] 04-25-2025 Radiology Diagnostic study note [facility] Imaging Services [address] [place], [place] [id number] Forearm 2 Views MR#: [id number] Acct: [id number] Name: ALEXEI FOWLER Rep #: [id number] : 1965 F 60 From: Kuldip Estes DO PCP: Dr. Sofy Richter DO Status: REG CLI Study:Forearm 2 Views Date of Exam: 04/07 06/01 Exam# [id number] Ordering Dr: Mikie Ku DO PROCEDURE: FOREARM 2 VIEWS 04/24/2025 REASON FOR EXAM: PAIN TECHNIQUE: FOREARM 2 VIEWS COMPARISON: None FINDINGS: Bones: Unremarkable. There are no fractures or dislocations. Normal bone mineral density is noted involving the osseous structures of the left forearm. Joints: Joint spaces are well preserved. Soft tissues: There is no soft tissue swelling. No soft tissue masses are noted. RAD/Forearm 2 Views IMPRESSION: Unremarkable right forearm study. Reading Location: [facility] CC: Dr. Sofy Richter DO; Dr. Mikie Ku DO ~ 911 Emergency Dispatcher: Signed [facility] 04-13-2025 Radiology Diagnostic study note [facility] Imaging Services [address] [place], [place] [address] Abdomen Single View MR#: [id number] Acct: [id number] Name: ALEXEI FOWLER Rep #: [id number] : 1965 F 60 From: Kuldip Estes DO PCP: Dr. Sofy Richter DO Status: REG CLI Study:Abdomen Single View Date of Exam: 04/13/25 Exam# [id number] Ordering Dr: Fabiola Richter sa, DO PROCEDURE: ABDOMEN SINGLE VIEW 04/13/2025 REASON FOR EXAM: KUB- KIDNEY STONE TECHNIQUE: ABDOMEN SINGLE VIEW COMPARISON: None FINDINGS: 2 frontal views of the abdomen were obtained and demonstrate a moderate amount of stool and gas present throughout a nondistended colon. No free air is seen. Note however that free air could be missed on a supine view. If free air is suspected, a decubitus view or upright view should be performed. A 10 x 20 mm oval radiopaque densityis projected over the left lower side of the T12 vertebral body. This appears to represent probable medication within the bowel.Psoas muscles and renal outlines are partially obscured by overlying bowel gas and fecal material within the colon. No gross organomegaly is seen. No abnormal calcific densities are identified in the region of the kidneys or ureters. Phleboliths are seen in the pelvis. The debris within the bowel could obscure a small stone. Ultrasound may be of use for further evaluation if clinically warranted. Surgical clips are seen in the gallbladder fossa. Lumbar spine, bony pelvis and both hips are grossly unremarkable. RAD/Abdomen Single View IMPRESSION: No acute abdominal process is identified radiographically. If a small renal stone is suspected, an ultrasound of the kidneys is recommended for further evaluation as described above. Reading Location: [id number] CC: Dr. Sofy Richter DO ~ 911 Emergency Dispatcher: Signed [facility] 02-09-2025 Evaluation note Diagnosis Onset Date Resolution Asthma-COPD overlap syndrome chronic February 09, 2025 9: 53am Smoking greater than 30 pack years chronic February 09, 2025 9: 53am Acute otitis externa of right ear acute February 09, 2025 10 :58am Acute otitis media, right acute February 09, 2025 10 :58[facility] Work Phone: 1(719) 460-492701-03-2025 Evaluation note* Diagnosis Onset Date Resolution Status Admit Date Atherosclerosis of coronary artery of [place] heart without angina pectoris chronic October 10 1:44pm Paroxysmal supraventricular tachycardia chronic October 10 1:44pm [facility] Work Phone: 1(653) 811-640212-27-2024 [facility] Medical Records Department [address] [place] [address] History Physical Exam 10/03/24926 MR#: [id number] Acct: [id number] Name: ALEXEI FOWLER Rep #: [id number] : 1965 59 From: Miguel Angel Almendarez MD PCP: Dr. Sofy Richter, DO Status:[place] [facility] [place]: [place] [address] History and Physical Date of Admission: 10/03/24 Intake Vital Signs 02/22/2414:45 07/01/2413:13 Height 5 ft 6 in 5 ft 6 in Weight: 168 lb BMI 27.1 BP 100/66 Blood Pressure Location Rt brachial Position Sitting Respiration 16 Pulse 79 Pulse Oximetry (%) 96 Oxygen Delivery Method room air Intake Visit Reasons: DIVERTICULITIS Chief Complaint: diverticulitis 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 Required: No Is patient in pain?: No Allergies amoxicillin Allergy (Severe, Verified 07/01/24 13:14) Shortness of breathazithromycin Allergy (Severe, Verified 07/01/24 13:14) Shortness of breathclindamycin Allergy (Severe, Verified 07/01/24 13:14) Shortness of breathdoxycycline Allergy (Severe, Verified 07/01/24 13:14) Shortness of breatherythromycin lactobionate (From Erythrocin) Allergy (Severe, Verified 07/01/24 13:14) Shortness of breathPenicillins Allergy (Severe, Verified 07/01/24 13:14) Shortness of breathSulfa (Sulfonamide Antibiotics) Allergy (Severe, Verified 07/01/24 13:14) Shortness of breathsulfamethoxazole (From Bactrim) Allergy (Severe, Verified 07/01/24 13:14) Shortness of breathtrimethoprim (From Bactrim) Allergy (Severe, Verified 07/01/24 13:14) Shortness of breathAntihistamines - Alkylamine Allergy (Verified 07/01/24 13:14) doesn't for daysAntihistamines - Ethanolamine Allergy (Verified 07/01/24 13:14) NEEDS FOLLOW-UPAntihistamines - Ethylenediamine Allergy (Verified 07/01/24 13:14) NEEDS FOLLOW-UPAntihistamines - Piperidine Allergy (Verified 07/01/24 13:14) NEEDS FOLLOW-UPmeloxicam (From Mobic) Allergy (Verified 07/01/24 13:14) Chest tightnesstramadol Allergy (Verified 07/01/24 13:14) Unknowncodeine (From Tylenol-Codeine #3) Adverse Reaction (Verified 07/01/24 13:14) Nausea/Vom/Diarrheagabapentin Adverse Reaction (Verified 07/01/24 13:14) Otherterbutaline (From Brethine) Adverse Reaction (Verified 07/01/24 13:14) Other Medications ???Medication ???Instructions ???Recorded ???Confirmed ???Type lamotrigine 200 mg disintegrating 200 mg PO BID seizure 04/15/18 07/01/24 History tablet aspirin 81 mg chewable tablet 81 mg PO DAILY 04/21/18 07/01/24 Rx dgniuzewdl-zieqjwhryjxik-paddyyea 1 tab PO PRN PRN Migraine Symptoms 03/04/19 07/01/24 History 50 mg-325 mg-40 mg tablet 30 days #90 tabs promethazine 25 mg tablet 1 tab PO PRN PRN Nausea 30 days 03/04/19 07/01/24 History #90 tabs pantoprazole 40 mg tablet,delayed 40 mg PO BID 02/03/21 07/01/24 History release ezetimibe 10 mg tablet 10 mg PO DAILY cholesterol 10/06/21 07/01/24 History levothyroxine 125 mcg tablet 125 mcg PO DAILY 01/28/22 07/01/24 History nystatin 100,000 unit/mL oral 5 ml mucous membrane TID PRN thrush 01/28/22 07/01/24 History suspension fluoxetine 20 mg capsule 40 mg PO BID 04/18/22 07/01/24 History diazepam 5 mg tablet 5 mg PO TID Anxiety 01/29/23 07/01/24 History atenolol 25 mg tablet See Rx Instructions .Route 02/23/23 07/01/24 Rx .COMPLEX #90 TABLETS cholecalciferol (vitamin D3) 1,250 50,000 unit PO QWEEK 07/27/23 07/01/24 History mcg (50,000 unit) capsule furosemide 20 mg tablet 20 mg PO DAILY 07/27/23 07/01/24 History potassium chloride 20 mEq 20 meq PO DAILY 07/27/23 07/01/24 History tablet,extended release albuterol sulfate 2.5 mg/3 mL 2.5 mg (3 mL) inhalation Q4HWA.RT 07/31/23 07/01/24 Rx (0.083 %) solution for nebulization #180 mL albuterol sulfate 90 mcg/actuation 2 puff inhalation Q4H PRN PRN 07/31/23 07/01/24 Rx aerosol inhaler Wheezing ##1 sucralfate 100 mg/mL oral 10 ml PO .QID 06/25/24 07/01/24 History suspension Have you fallen in the past year?: No PFSH Medical History Depression Myocardial infarct COVID-19 (09/2021) Encounter for screening for COVID-19 Sore throat Cough Obesity History of non-ST elevation myocardial infarction (NSTEMI) (04/16/18) Bronchitis Acute on chronic respiratory failure with hypoxia and hypercapnia Asthma-COPD overlap syndrome History of sepsis Chronic neck and back pain Limb weakness Difficulty balancing Asthma COPD (chronic obstructive pulmonary disease) Severe headache Stomach ulcer Arthritis Hypersomnia, unspecified Diverticula of colon Acute diastolic (congestive) heart failure (04/18/18) Atherosclerosis of coronary artery of [place] heart without angina pectoris Hypothyroidism GERD (gastroesophageal reflux disease) Paroxysmal supraventricular tachycardia Bipolar disorder Chronic back pain TMJ (temporomandibular joint synd (more content not included)...[facility]01-30-2024 Discharge summary Author Justin Solorio [facility] November 06, 2023 4:34pm Note Date/Time November 06, 2023 4 :35pm [facility] Physical Therapy [facility] [address] [place] [address]. [address] [place] [address] / REHABILITATION SERVICES DISCHARGE SUMMARY MR#: [id number] Acct: [id number] Name: ALEXEI FOWLER Rep #: [id number] : 1965 58 From: Justin Solorio PT, ATC Referring Dr.: Dr. Sofy Richter DO Status: REG RCR Insurance: [facility] SELF PAY INSURANCE Discharge Summary D/C summary: It has been my pleasure to treat ALEXEI FOWLER referred by Dr. Sofy Richter DO, with the diagnosis of L lateral thigh pain for a total of 16 visit(s). Discharge Date: Please see the following information for a summary of their discharge status. Subjective Subjective: I dont really have pain this date. Pain L lateral thigh pain: Pain Intensity (Out of 10): 0 Overall Improvement % Improvement: 95 Objective Objective/Function: L hip pain ranges from 0-1/10 L LE MMT 5/5 throughout Pt denies L LE radiculopathy Pt is I with HEP Goals Goal 1:: Decrease L LE pain x 50% to aid with sleep Goal Progress: Goal Met Goal 2:: Decrease the frequency and intensity of L LE radiculopathy x 50% to aidwith ambulation Goal Progress: Goal Met Goal 3:: Increase L LE strength to 5/5 throughout to aid with IADL's Goal Progress: Goal Met Goal 4:: I with HEP Goal Progress: Goal Met Plan Plan: Discharge to HEP D/C Information d/c sentence: If there are questions or concerns regarding this patient's physical therapy, please feel free to call me at [phone]. Thank you for the referral of thispatient. Sincerely, Justin Solorio PT, ATC Balance/Gait/Functional tests Balance/Special Test Scores Oswestry Low Back Score: 39 Lower Extremity Functional Score: 77 Improvement % Improvement: 95 <Electronically signed by Justin Solorio PT, ATC> 11/06/23 1634 CC: Dr. Sofy Richter DO ~ [facility] Signed [facility] Work Phone: [phone]) 141-545409-01-2023 Discharge summary Author Ventura Baez [facility] June 08, 2023 4:51pm Note Date/Time June 08, 2023 4:49pm [facility] Medical Records Department [address] [place] [address] Emergency Department Summary 06/08/23 MR#: [id number] Acct: [id number] Name: ALEXEI FOWLER Rep #:[id number] : 1965 58 From: Ventura Baez MD PCP: Dr. Sofy Richter, DO Status:REG ER Location: ED HPI HPI - GI History of Present Illness Chief Complaint: Abd Pain Detail of Chief Complaint: Lateral lower quadrant abdominal pain left greater than right Informant: patient Abdominal Pain/Flank Pain Context: Sudden Onset Timing: Continuous and Waxes and wanes Quality: Aching and Cramping Location: RLQ and LLQ Current Severity: Mild Worsened by: Car ride and Movement Relieved by: Nothing Nausea/Vomiting/Emesis GI Symptom: Positive for Nausea; Negative for Vomiting Diarrhea/Melena/Hematochezia GI Symptom: Negative for Diarrhea, Melena or Hematochezia Associated Symptoms Associated Symptoms: Negative for Dysuria, Frequency, Hematuria or Urgency Narrative Narrative: Patient is a 58 woman who was placed on metronidazole for diverticulitis. She states her physician called in the prescription. Patient significant allergies to amoxicillin, macrolide, clindamycin and doxycycline. She also has significant reaction to sulfa. Patient does not have allergies to quinolones. She states that she did fill the prescription and has taken the medication. Shedenies alcohol use. She denies using mouthwash cough syrup which contain alcohol since she was prescribed metronidazole. She denies fever or chills. She does report nausea. She denies vomiting. She has had problems moving her bowels. She denies black or maroon stool. She denies urologic symptoms. She denies pain referred to her back. There is no history of renal or ureteral calculi. Patient denies abdominal distention or bloating. Prior similar symptoms: Yes (Diverticulitis) PFSH [facility] Medical History Acute diastolic (congestive) heart failure (04/18/18) Acute on chronic respiratory failure with hypoxia and hypercapnia Arthritis Asthma Asthma-COPD overlap syndrome Atherosclerosis of coronary artery of [place] heart without angina pectoris Bipolar disorder Bronchitis Chronic back pain Chronic neck and back pain COPD (chronic obstructive pulmonary disease) Cough COVID-19 (09/2021) Depression Difficulty balancing Diverticula of colon Encounter for screening for COVID-19 GERD (gastroesophageal reflux disease) History of non-ST elevation myocardial infarction (NSTEMI) (04/16/18) History of sepsis Hypersomnia, unspecified Hypoglycemia Hypokalemia Hypothyroidism Limb weakness Myocardial infarct Obesity Paroxysmal supraventricular tachycardia Severe headache Sore throat Stomach ulcer TMJ (temporomandibular joint syndrome) Urinary incontinence Home Medications lamotrigine 200 mg disintegrating tablet 200 mg PO BID seizure 04/15/18 [History Last Taken 01/28/22 0800] aspirin 81 mg chewable tablet 81 mg PO DAILY 04/21/18 [Rx Last Taken Unknown] wpnenwfthi-cbalhzzozwfnl-lmalrkkd 50 mg-325 mg-40 mg tablet 1 tab PO PRN PRN Migraine Symptoms 30 days #90 tabs 03/04/19 [History Last Taken Unknown] promethazine 25 mg tablet 1 tab PO PRN PRN Nausea 30 days #90 tabs 03/04/19 [History Last Taken Unknown] ibuprofen 600 mg tablet 600 mg PO TID PRN pain #42 tabs 09/28/20 [Rx Last Taken Unknown] cyclobenzaprine 10 mg tablet 20 mg PO Q6H PRN MUSCLE SPASMS 02/03/21 [History Last Taken Unknown] pantoprazole 40 mg tablet,delayed release 40 mg PO BID 02/03/21 [History Last Taken Unknown] ezetimibe 10 mg tablet 10 mg PO DAILY cholesterol 10/06/21 [History Last Taken 10/05/21 09:00] levothyroxine 125 mcg tablet 125 mcg PO DAILY 01/28/22 [History Last Taken Unknown] nystatin 100,000 unit/mL oral suspension 5 ml mucous membrane TID PRN thrush 01/28/22 [History Last Taken Unknown] fluticasone propionate 50 mcg/actuation nasal spray,suspension 2 spray intranasal DAILY #16 grams 02/21/22 [Rx Last Taken Unknown] albuterol sulfate 2.5 mg/3 mL (0.083 %) solution for nebulization 2.5 mg (3 mL) inhalation Q4HWA.RT #180 mL 04/04/22 [Rx Last Taken Unknown] budesonide-formoterol HFA 160 mcg-4.5 mcg/actuation aerosol inhaler (Symbicort) 2 puff inhalation BID #3 ea 04/04/22 [Rx Last Taken Unknown] fluoxetine 20 mg capsule 40 mg PO BID 04/18/22 [History Last Taken Unknown] furosemide 20 mg tablet 20 mg PO DAILY PRN 04/18/22 [History Last Taken Unknown] diazepam 5 mg tablet 5 mg PO TID Anxiety 01/29/23 [History Last Taken Unknown] guaifenesin 1,200 mg tablet, extended release 12 hr 1,200 mg PO Q12H #60 tabs 01/29/23 [Rx Last Taken Unknown] prednisone 10 mg tablet 10 mg PO QDAY #30 tabs 01/29/23 [Rx Last Taken Unknown] albuterol sulfate 90 mcg/actuation aerosol inhaler 2 puff inhalation Q4H PRN PRNWheezing ##1 02/23/23 [Rx Last Taken Unknown] atenolol 25 mg tablet See Rx Instructions .Route .COMPLEX #90 TABLETS 02/23/23 [Rx Last Taken Unknown] ciprofloxacin HCl 500 mg tablet 500 mg PO BID #14 TABLETS 06/08/23 [Rx Last Taken Unknown] oxycodone-acetaminophen 5 mg-325 mg tablet 1 tab PO Q6H PRN PRN Pain 3 days #12 TABLETS 06/08/23 [Rx Last Taken Unknown] Allergy/AdvReac Type Severity Reaction Status Date / Time amoxicillin Allergy Severe Shortness Verified 06/08/23 15:08 of breath azithromycin Allergy Severe Shortness Verified 06/08/23 15:08 of breath clindamycin Allergy Severe Shortness Verified 06/08/23 15:08 of breath doxycycline Allergy Severe Shortness Verified 06/08/23 15:08 of breath erythromycin lactobionate Allergy Severe Shortness Verified 06/08/23 15:08 [From Erythrocin] of breath Penicillins Allergy Severe Shortness Verified 06/08/23 15:08 of breath Sulfa (Sulfonamide Allergy Severe Shortness Verified 06/08/23 15:08 Antibiotics) of breath sulfamethoxazole Allergy Severe Shortness Verified 06/08/23 15:08 [From Bactrim] of breath trimethoprim [From Bactrim] Allergy Severe Shortness Verified 06/08/23 15:08 of breath Antihistamines - Alkylamine Allergy NEEDS Verified 06/08/23 15:08 FOLLOW-UP Antihistamines - Ethanolamine Allergy NEEDS Verified 06/08/23 15:08 FOLLOW-UP Antihistamines - Allergy NEEDS Verified 06/08/23 15:08 Ethylenediamine FOLLOW-UP Antihistamines - Piperidine Allergy NEEDS Verified 06/08/23 15:08 FOLLOW-UP meloxicam [From Mobic] Allergy Chest Verified 06/08/23 15:08 tightness tramadol Allergy Unknown Verified 06/08/23 15:08 codeine AdvReac Nausea/Vom/ Verified 06/08/23 15:08 [From Tylenol-Codeine #3] Diarrhea gabapentin AdvReac Other Verified 06/08/23 15:09 terbutaline [From Brethine] AdvReac Other Verified 06/08/23 15:08 Family History Mother Hypertension Pulmonary embolism Psychiatric care Father Lung cancer Grandmother Breast cancer Sister Asthma Seizures Psychiatric care Depression Son Depression Psychiatric care ADHD Daughter Depression Psychiatric care Bipolar 1 disorder Surgical History History of appendectomy History of section History of cholecystectomy History of dilatation and curettage History of endometrial ablation History of left heart catheterization (04/18/18) History of left oophorectomy hx of throat biopsy Social History household members: children Smoking Status: Former smoker Tobacco: How many years used: 40 how long ago did patient quit smokin, 1.5ppd second hand exposure: Yes substance use type: does not use ROS ROS ED Constitutional Constitutional ED: Denies chills, fever(s), subjective, sweats or weight loss ENT ENT ED: Denies ear pain, rhinorrhea or sore throat Cardiovascular Cardiovascular: Denies chest pain or palpitations Respiratory/Chest Respiratory/Chest: Denies cough, dyspnea or dyspnea on exertion Gastrointestinal Gastrointestinal: Reports abdominal pain and nausea; Denies diarrhea, melena or vomiting Genitourinary Genitourinary ED: Denies dysuria, hematuria or urinary frequency Musculoskeletal Musculoskeletal: Denies arthralgias, back pain, myalgias or neck pain Integumentary Denies Abrasions or rash Neurologic Neurologic: Reports weakness; Denies headache(s) or paresthesias Psychiatric Psychiatric: Reports anxiety Endocrine Endocrinology: Denies polydipsia, polyphagia or polyuria Hematologic/Lymphatic Hematologic/Lymphatic: Denies easy bleeding or easy bruising Allergic/Immunologic Allergic/Immunologic ED: Denies mouth swelling, tongue swelling or urticaria EXAM Physical Exam Const Vital Signs: 06/08/23 15:10 06/08/23 15:11 Temperature 95.8 F L 95.8 F L Temperature Source Temporal Temporal Pulse Rate 83 83 Respiratory Rate 16 16 Blood Pressure 117/73 117/73 Blood Pressure Mean 87 87 Pulse Ox 99 99 Positive well nourished, well developed and unkempt Constitutional Narrative: Patient appears uncomfortable. She does not appear toxic. General Appearance ED: unkempt, well developed and pallor HEENT Reports TM's clear and dry mucous membranes normocephalic and atraumatic Tympanic Membrane ED: Yes TM's clear Mouth ED: Yes dry mucous membranes Mouth: dry mucous membranes Eyes PERRL and EOMs intact bilaterally General Eye ED: Negative for pale conjunctiva or scleral icterus Neck no lymphadenopathy, supple and no JVD Chest Wall Chest Narrative: Normal Resp normal respiratory effort and clear to auscultation bilaterally Cardio regular rate, regular rhythm, S1 normal heart sound, S2 normal heart sound and no murmurs GI non-distended and no masses; Negative for non-tender Auscultation: hypoactive bowel sounds Palpation: soft, tender LLQ and RLQ and guarding LLQ; Negative for rigid, hepatomegaly, splenomegaly, hernia, mass, pulsatile mass or rebound tenderness present Narrative: There is no inguinal lymphadenopathy or mass. Back/Spine no CVA tenderness Back/Spine Narrative: Inspection of back is normal. Extremity full ROM General Extremety ED: Negative for edema or tenderness General Extremity: Negative for edema Neuro CN's II-XII intact bilaterally and moves all extremities Sensorium / Orientation: alert Motor Exam: strength 5/5 throughout Psych thought process normal; Negative for mental status grossly normal Appearance: unkempt Mood & Affect: anxious; Negative for tearful Skin no wounds General Skin Exam: pallor; Negative for jaundice Rashes: no rashes MDM MDM MDM Narrative Medical decision making narrative: Differential diagnosis would be diverticulitis, appendicitis, colitis, abdominalpain of unknown etiology and UTI. Because patient has guarding and prior history of diverticulitis suspect this is most likely diverticulitis. CT was obtained and reveals a 7 cm section of the sigmoid colon to be acutely inflamed. History & Record Review Discussion w/independent historian: Patient and Family Additional record(s) reviewed:: Prior outpatient record, Prior ED visit and Prior labs Lab Data Attestation: I reviewed the patient's lab results. Lab results narrative: CBC and frontal are normal UA is unremarkable. Electrolyte panel is unremarkable. Labs: Laboratory Results - last 24 hr 06/08/23 06/08/23 15:45 15:53 WBC 8.5 RBC 4.28 Hgb 12.9 Hct 40.8 MCV 95.3 MCH 30.1 MCHC 31.6 L RDW Std Deviation 42.8 RDW Coeff of Lino 12.4 Plt Count 235 MPV 11.8 Immature Gran % (Auto) 0.600 Neut % (Auto) 58.4 Lymph % (Auto) 33.8 [place] % (Auto) 6.0 Eos % (Auto) 0.7 Baso % (Auto) 0.5 Absolute Neuts (auto) 5.0 Absolute Lymphs (auto) 2.88 Nucleated RBC % 0 Sodium 139 Potassium 3.5 Chloride 102 Carbon Dioxide 31.0 Anion Gap 6 BUN 9 Creatinine 0.92 Estim Creat Clear Calc 55.81 Est GFR (MDRD) Af Amer 80 Est GFR (MDRD) Non-Af 66 BUN/Creatinine Ratio 9.7 L Glucose 94 Calcium 9.3 Urine Color Yellow Urine Clarity Clear Urine pH 6.5 Ur Specific [place] 1.010 Urine Protein 15 H Urine Glucose (UA) Normal Urine Ketones Negative Urine Occult Blood Negative Urine Nitrite Negative Urine Bilirubin Negative Urine Urobilinogen Normal Ur Leukocyte Esterase 25 H Urine RBC 0 SEEN Urine WBC 0-5 SEEN Ur Squamous Epith Cells 0 SEEN Urine Bacteria 0 SEEN Urine Mucus 0 SEEN Radiography Diagnostic Testing: Clinical Impression(s) from Imaging Studies Abdomen/Pelvis CT 06/08/23 15:21 IMPRESSION: Acute diverticulitis over a 7.1 cm segment in the descending colon/sigmoid without evidence of distant abscess or extraluminal gas. Status post cholecystectomy. Status post appendectomy. Foreign body density stable in the right hepatic lobe. Degenerative change of the lumbar spine L4-L5. Persistent partially visualized coronary artery calcification. Electronically Signed: Kay Osborn MD at 16:34 EDT , Treatment and Re-Evaluation :: Because of patient's allergies she received a dose of ciprofloxacin here in the emergency department prior to discharge. She was instructed to continue taking the metronidazole. She also was prescribed pain medicine. Discharge Plan Triage Chief Complaint: Abd Pain ED Provider: Ventura Baez Dx/Rx/DC Orders Clinical Impression: Diverticulitis of sigmoid colon, Obesity Instructions: ED Diverticulitis Prescriptions: New ciprofloxacin HCl [ciprofloxacin HCl] 500 mg tablet 500 mg PO BID Qty: 14 0RF oxycodone-acetaminophen [oxycodone-acetaminophen] 5-325 mg tablet 1 tab PO Q6H PRN PRN (Reason: Pain) 3 Days Qty: 12 0RF No Action promethazine 25 mg tablet 1 tab PO PRN PRN (Reason: Nausea) 30 Days Qty: 90 kcnfazdmxe-jeywvvevwfhnz-nrmm 50-325-40 mg tablet 1 tab PO PRN PRN (Reason: Migraine Symptoms) 30 Days Qty: 90 cyclobenzaprine 10 mg tablet 20 mg PO Q6H PRN (Reason: MUSCLE SPASMS) pantoprazole 40 mg tablet,delayed release (DR/EC) 40 mg PO BID furosemide 20 mg tablet 20 mg PO DAILY PRN albuterol sulfate 2.5 mg /3 mL (0.083 %) solution for nebulization 2.5 mg inhalation Q4HWA.RT Qty: 180 6RF budesonide-formoterol [Symbicort] 160-4.5 mcg/actuation HFA aerosol inhaler 2 puff inhalation BID Qty: 3 3RF Rx Instructions: administer with spacer, rinse mouth after each use prednisone 10 mg tablet 10 mg PO QDAY Qty: 30 0RF Rx Instructions: take 4 tabs for three days, then 3 tabs for three days, then 2 tabs for three days, then 1 tab for 3 days guaifenesin 1,200 mg tablet extended release 12hr 1,200 mg PO Q12H Qty: 60 6RF lamotrigine 200 MG tablet,disintegrating 200 mg PO BID aspirin 81 MG tablet,chewable 81 mg PO DAILY 0RF fluoxetine 20 mg capsule 40 mg PO BID diazepam 5 mg tablet 5 mg PO TID ezetimibe 10 mg tablet 10 mg PO DAILY levothyroxine 125 mcg tablet 125 mcg PO DAILY Patient Comments: TAKE 1 TABLET BY MOUTH EVERY DAY IN THE MORNING ON EMPTY STOMACH nystatin 100,000 unit/mL suspension 5 ml mucous membrane TID PRN (Reason: thrush) Rx Instructions: swish and swallow 5 cc three times per day for 10 days ibuprofen 600 mg tablet 600 mg PO TID PRN (Reason: pain) Qty: 42 0RF fluticasone propionate 50 mcg/actuation spray,suspension 2 spray INTRANASAL DAILY Qty: 16 6RF atenolol 25 mg tablet See Rx Instructions .ROUTE .COMPLEX Qty: 90 4RF Dose Instruction: TAKE 1 TABLET BY MOUTH EVERY DAY Rx Instructions: TAKE 1 TABLET BY MOUTH EVERY DAY albuterol sulfate 90 mcg/actuation HFA aerosol inhaler 2 puff inhalation Q4H PRN PRN (Reason: Wheezing) Qty: 1 11RF Primary Care Provider: Sofy Richter Referrals: Sofy Richter DO [Primary Care Provider] - 3-5 Days Disposition Disposition: Home, Self Care What to do if you have Problems For any increased pain, shortness of breath, bleeding, nausea or vomiting, chestpain, or any unexpected problems, contact your Primary Care Provider. Call [facility] ([phone]) or report to the closest Emergency Room. Call 911 if necessary. 06/08/23 1651 <Electronically signed by Ventura Baez MD> Cosigner Signature (if applicable): CC: Dr. Sofy Richter DO ~ Signed [facility] Work Phone: Discharge summary Author Ventura [facility] July 08, 2023 3:41am Note Date/Time July 08, 2023 3: 41am [facility] Medical Records Department [address] [place] [address] Emergency Department Summary 07/08/23 MR#: [id number] Acct: [id number] Name: ALEXEI FOWLER Rep #:[id number] : 1965 58 From: Ventura Baez MD PCP: Dr. Sofy Richter DO Status:REG ER Location: ED HPI History of Present Illness Chief Complaint: General Illness Detail of Chief Complaint: Can believe she is having a reaction to the patient she was prescribed for Informant: patient and family Onset/Context/Timing Onset: Today Context: Sudden Onset Timing: Continuous Quality: Not feeling well, headache, trouble with eyes, not feeling well Location: Generalized Current Severity: Mild Maximum Severity: Moderate Worsened by: Patient believes she is having a reaction to the antiviral attic she was pr Relieved by: Nothing Associated Symptoms Associated Symptoms: Per HPI narrative Narrative Narrative: Patient is a 58-year-old woman with history of depression, anxiety, hyper rate is him and lung disease presents with headache, problems with a rise and concernfor allergic reaction. She also has history of heart disease and COPD. She was seen by her doctor and diagnosed with shingles. She denies hypersensitivity. She denies blistering or crusting of the lesions. She deniesthe lesions being painful. She is not able to tell me if she is having blurred vision versus double vision. She states her eyes are not working . She denies difficulty swallowing. Family has not noted slurring of her words or problems understanding her. She denies chest discomfort, shortness of breath, orthopnea or PND. She denies cough, shortness of breath or dyspnea on exertion. She denies nausea, vomiting or diarrhea. She denies dysuria, frequency, urgency or hematuria. She has not noted any skin lesions. Prior similar symptoms: No Recent Illness/Hospitalization: Yes [facility] Medical History Acute diastolic (congestive) heart failure (04/18/18) Acute on chronic respiratory failure with hypoxia and hypercapnia Arthritis Asthma Asthma-COPD overlap syndrome Atherosclerosis of coronary artery of [place] heart without angina pectoris Bipolar disorder Bronchitis Chronic back pain Chronic neck and back pain COPD (chronic obstructive pulmonary disease) Cough COVID-19 (09/2021) Depression Difficulty balancing Diverticula of colon Encounter for screening for COVID-19 GERD (gastroesophageal reflux disease) History of non-ST elevation myocardial infarction (NSTEMI) (04/16/18) History of sepsis Hypersomnia, unspecified Hypoglycemia Hypokalemia Hypothyroidism Limb weakness Myocardial infarct Obesity Paroxysmal supraventricular tachycardia Severe headache Sore throat Stomach ulcer TMJ (temporomandibular joint syndrome) Urinary incontinence Home Medications lamotrigine 200 mg disintegrating tablet 200 mg PO BID seizure 04/15/18 [History Last Taken 01/28/22 0800] aspirin 81 mg chewable tablet 81 mg PO DAILY 04/21/18 [Rx Last Taken Unknown] plbjrlmigz-jdfxbzsqagthr-txxskhqn 50 mg-325 mg-40 mg tablet 1 tab PO PRN PRN Migraine Symptoms 30 days #90 tabs 03/04/19 [History Last Taken Unknown] promethazine 25 mg tablet 1 tab PO PRN PRN Nausea 30 days #90 tabs 03/04/19 [History Last Taken Unknown] ibuprofen 600 mg tablet 600 mg PO TID PRN pain #42 tabs 09/28/20 [Rx Last Taken Unknown] cyclobenzaprine 10 mg tablet 20 mg PO Q6H PRN MUSCLE SPASMS 02/03/21 [History Last Taken Unknown] pantoprazole 40 mg tablet,delayed release 40 mg PO BID 02/03/21 [History Last Taken Unknown] ezetimibe 10 mg tablet 10 mg PO DAILY cholesterol 10/06/21 [History Last Taken 10/05/21 09:00] levothyroxine 125 mcg tablet 125 mcg PO DAILY 01/28/22 [History Last Taken Unknown] nystatin 100,000 unit/mL oral suspension 5 ml mucous membrane TID PRN thrush 01/28/22 [History Last Taken Unknown] fluticasone propionate 50 mcg/actuation nasal spray,suspension 2 spray intranasal DAILY #16 grams 02/21/22 [Rx Last Taken Unknown] albuterol sulfate 2.5 mg/3 mL (0.083 %) solution for nebulization 2.5 mg (3 mL) inhalation Q4HWA.RT #180 mL 04/04/22 [Rx Last Taken Unknown] budesonide-formoterol HFA 160 mcg-4.5 mcg/actuation aerosol inhaler (Symbicort) 2 puff inhalation BID #3 ea 04/04/22 [Rx Last Taken Unknown] fluoxetine 20 mg capsule 40 mg PO BID 04/18/22 [History Last Taken Unknown] furosemide 20 mg tablet 20 mg PO DAILY PRN 04/18/22 [History Last Taken Unknown] diazepam 5 mg tablet 5 mg PO TID Anxiety 01/29/23 [History Last Taken Unknown] guaifenesin 1,200 mg tablet, extended release 12 hr 1,200 mg PO Q12H #60 tabs 01/29/23 [Rx Last Taken Unknown] prednisone 10 mg tablet 10 mg PO QDAY #30 tabs 01/29/23 [Rx Last Taken Unknown] albuterol sulfate 90 mcg/actuation aerosol inhaler 2 puff inhalation Q4H PRN PRNWheezing ##1 02/23/23 [Rx Last Taken Unknown] atenolol 25 mg tablet See Rx Instructions .Route .COMPLEX #90 TABLETS 02/23/23 [Rx Last Taken Unknown] ciprofloxacin HCl 500 mg tablet 500 mg PO BID #14 TABLETS 06/08/23 [Rx Last Taken Unknown] oxycodone-acetaminophen 5 mg-325 mg tablet 1 tab PO Q6H PRN PRN Pain 3 days #12 TABLETS 06/08/23 [Rx Last Taken Unknown] Allergy/AdvReac Type Severity Reaction Status Date / Time amoxicillin Allergy Severe Shortness Verified 07/08/23 00:59 of breath azithromycin Allergy Severe Shortness Verified 07/08/23 00:59 of breath clindamycin Allergy Severe Shortness Verified 07/08/23 00:59 of breath doxycycline Allergy Severe Shortness Verified 07/08/23 00:59 of breath erythromycin lactobionate Allergy Severe Shortness Verified 07/08/23 00:59 [From Erythrocin] of breath Penicillins Allergy Severe Shortness Verified 07/08/23 00:59 of breath Sulfa (Sulfonamide Allergy Severe Shortness Verified 07/08/23 00:59 Antibiotics) of breath sulfamethoxazole Allergy Severe Shortness Verified 07/08/23 00:59 [From Bactrim] of breath trimethoprim [From Bactrim] Allergy Severe Shortness Verified 07/08/23 00:59 of breath Antihistamines - Alkylamine Allergy NEEDS Verified 07/08/23 00:59 FOLLOW-UP Antihistamines - Ethanolamine Allergy NEEDS Verified 07/08/23 00:59 FOLLOW-UP Antihistamines - Allergy NEEDS Verified 07/08/23 00:59 Ethylenediamine FOLLOW-UP Antihistamines - Piperidine Allergy NEEDS Verified 07/08/23 00:59 FOLLOW-UP meloxicam [From Mobic] Allergy Chest Verified 07/08/23 00:59 tightness tramadol Allergy Unknown Verified 07/08/23 00:59 codeine AdvReac Nausea/Vom/ Verified 07/08/23 00:59 [From Tylenol-Codeine #3] Diarrhea gabapentin AdvReac Other Verified 07/08/23 00:59 terbutaline [From Brethine] AdvReac Other Verified 07/08/23 00:59 Family History Mother Hypertension Pulmonary embolism Psychiatric care Father Lung cancer Grandmother Breast cancer Sister Asthma Seizures Psychiatric care Depression Son Depression Psychiatric care ADHD Daughter Depression Psychiatric care Bipolar 1 disorder Surgical History History of appendectomy History of section History of cholecystectomy History of dilatation and curettage History of endometrial ablation History of left heart catheterization (04/18/18) History of left oophorectomy hx of throat biopsy Social History household members: children Smoking Status: Former smoker Tobacco: How many years used: 40 how long ago did patient quit smokin, 1.5ppd second hand exposure: Yes substance use type: does not use ROS ROS ED Constitutional Constitutional ED: Denies chills, subjective, sweats or weight loss Eyes Eyes: Reports blurry vision and change in vision; Denies diplopia ENT ENT ED: Denies ear pain, rhinorrhea or sore throat Cardiovascular Cardiovascular: Denies chest pain or palpitations Respiratory/Chest Respiratory/Chest: Denies cough, dyspnea or dyspnea on exertion Gastrointestinal Gastrointestinal: Denies abdominal pain, nausea or vomiting Genitourinary Genitourinary ED: Denies dysuria, hematuria or urinary frequency Musculoskeletal Musculoskeletal: Denies arthralgias, back pain or myalgias Integumentary Denies rash Neurologic Neurologic: Reports headache(s) and weakness; Denies paresthesias Psychiatric Psychiatric: Reports anxiety and depression Endocrine Endocrinology: Denies cold intolerance or heat intolerance Hematologic/Lymphatic Hematologic/Lymphatic: Reports systems reviewed and no addt'l complaints, exceptas documented Allergic/Immunologic Allergic/Immunologic ED: Denies mouth swelling or tongue swelling EXAM Physical Exam Const Vital Signs: 07/08/23 01:00 07/08/23 01:02 Temperature 97 F L Temperature Source Temporal Pulse Rate 68 Respiratory Rate 16 Respiratory Effort Normal Blood Pressure 118/68 Blood Pressure Mean 84 Pulse Ox 98 Positive well nourished, well developed, obese and unkempt General Appearance ED: unkempt, well developed and NAD; Negative for cyanotic, diaphoretic or pallor Nutritional Appearance: obese HEENT Reports TM's clear and moist mucous membranes HEENT Narrative: Atraumatic and normocephalic. Ears are normal. Nares are patent. Posterior pharynx out erythema or exudate. Uvula is midline. There is no deviation tongue with protrusion. Tympanic Membrane ED: Yes TM's clear Eyes PERRL and EOMs intact bilaterally General Eye ED: Negative for pale conjunctiva or scleral icterus Neck no lymphadenopathy, supple and no JVD Neck Narrative: He is midline. There is no inspiratory or expiratory stridor. Chest Wall inspection of chest normal and palpation of chest normal Resp normal respiratory effort and clear to auscultation bilaterally Cardio regular rate, regular rhythm, S1 normal heart sound, S2 normal heart sound and no murmurs GI normal to inspection, nondistended, normoactive bowel sounds, non-tender, non-distended and no masses; Negative for hepatosplenomegaly Back/Spine no CVA tenderness Extremity normal to inspection General Extremety ED: Negative for edema or tenderness General Extremity: Negative for edema Neuro oriented x3, CN's II-XII intact bilaterally and no sensory deficits noted Neuro Narrative: DTRs are 1+ at the bicep, brachialis, triceps, patella and ankle. There is no clonus or Babinski sign noted. Motor Exam: strength 5/5 throughout Psych Psych Narrative: Mood is flat. Affect is depressed. Patient has slow speech. Appearance: unkempt Skin no rashes or lesions noted, no wounds and No skin turgor normal General Skin Exam: Negative for jaundice or pallor MDM MDM MDM Narrative Medical decision making narrative: Patient's constellation of symptoms complaining of severe headache and reportedly ocular symptoms will obtain CT of the head to assess for sinusitis, subarachnoid hemorrhage or intraparenchymal bleed. CBC to assess white count and assess for anemia. BMP to assess blood sugar and glucose. UA to assess forspecific gravity and evidence of infection. I was informed at 0332 the patient was able to see and walk to the restroom. Lab Data Labs: Laboratory Results - last 24 hr 07/08/23 07/08/23 01:15 02:50 WBC 5.3 RBC 3.75 L Hgb 11.6 L Hct 34.9 L MCV 93.1 MCH 30.9 MCHC 33.2 RDW Std Deviation 42.3 RDW Coeff of Lino 12.4 Plt Count 199 MPV 11.3 Immature Gran % (Auto) 0.200 Neut % (Auto) 38.2 L Lymph % (Auto) 50.6 H [place] % (Auto) 9.1 Eos % (Auto) 1.5 Baso % (Auto) 0.4 Absolute Neuts (auto) 2.0 Absolute Lymphs (auto) 2.67 Nucleated RBC % 0 Sodium 139 Potassium 3.1 L Chloride 102 Carbon Dioxide 32.0 Anion Gap 5 BUN 12 Creatinine 0.87 Estim Creat Clear Calc 66.79 Est GFR (MDRD) Af Amer 86 Est GFR (MDRD) Non-Af 71 BUN/Creatinine Ratio 13.8 Glucose 111 H Calcium 8.8 Urine Color Yellow Urine Clarity Clear Urine pH 6.5 Ur Specific [place] 1.010 Urine Protein Negative Urine Glucose (UA) Normal Urine Ketones Negative Urine Occult Blood Negative Urine Nitrite Negative Urine Bilirubin Negative Urine Urobilinogen Normal Ur Leukocyte Esterase 100 H Radiography Diagnostic Testing: Clinical Impression(s) from Imaging Studies Brain CT 07/08/23 01:02 IMPRESSION: Mild atrophy with patchy chronic small vessel ischemic changes. No acute findings in the head/brain. Electronically Signed: Steven Liriano MD at 2:00 EDT , Allergy report was read. The CT was reviewed by me independently. Did not see any acute abnormality. Treatment and Re-Evaluation :: And the fact the patient now able to see walk to the restroom suspect this represents a conversion reaction. She was told that she did not have an allergic reaction to the medicine. Uncertain whether patient does or does not have shingles. Based on what I see there is a patch that is 3 x 4 cm in size left side of the mid lateral abdomen. There is no other lesions noted. There is no crusting or blistering noted. Discharge Plan Triage Chief Complaint: General Illness ED Provider: Ventura Baez Dx/Rx/DC Orders Clinical Impression: Conversion reaction, Atherosclerosis of coronary artery of [place] heart withoutangina pectoris, Smoking greater than 30 pack years, Obesity, Acute headache Instructions: Self-Care for Headaches, ED Conversion Reaction Prescriptions: No Action promethazine 25 mg tablet 1 tab PO PRN PRN (Reason: Nausea) 30 Days Qty: 90 bioiyzepmx-cnorbyerlqxop-pjyr 50-325-40 mg tablet 1 tab PO PRN PRN (Reason: Migraine Symptoms) 30 Days Qty: 90 cyclobenzaprine 10 mg tablet 20 mg PO Q6H PRN (Reason: MUSCLE SPASMS) pantoprazole 40 mg tablet,delayed release (DR/EC) 40 mg PO BID furosemide 20 mg tablet 20 mg PO DAILY PRN albuterol sulfate 2.5 mg /3 mL (0.083 %) solution for nebulization 2.5 mg inhalation Q4HWA.RT Qty: 180 6RF budesonide-formoterol [Symbicort] 160-4.5 mcg/actuation HFA aerosol inhaler 2 puff inhalation BID Qty: 3 3RF Rx Instructions: administer with spacer, rinse mouth after each use prednisone 10 mg tablet 10 mg PO QDAY Qty: 30 0RF Rx Instructions: take 4 tabs for three days, then 3 tabs for three days, then 2 tabs for three days, then 1 tab for 3 days guaifenesin 1,200 mg tablet extended release 12hr 1,200 mg PO Q12H Qty: 60 6RF lamotrigine 200 MG tablet,disintegrating 200 mg PO BID aspirin 81 MG tablet,chewable 81 mg PO DAILY 0RF fluoxetine 20 mg capsule 40 mg PO BID diazepam 5 mg tablet 5 mg PO TID ezetimibe 10 mg tablet 10 mg PO DAILY levothyroxine 125 mcg tablet 125 mcg PO DAILY Patient Comments: TAKE 1 TABLET BY MOUTH EVERY DAY IN THE MORNING ON EMPTY STOMACH nystatin 100,000 unit/mL suspension 5 ml mucous membrane TID PRN (Reason: thrush) Rx Instructions: swish and swallow 5 cc three times per day for 10 days ciprofloxacin HCl [ciprofloxacin HCl] 500 mg tablet 500 mg PO BID Qty: 14 0RF oxycodone-acetaminophen [oxycodone-acetaminophen] 5-325 mg tablet 1 tab PO Q6H PRN PRN (Reason: Pain) 3 Days Qty: 12 0RF ibuprofen 600 mg tablet 600 mg PO TID PRN (Reason: pain) Qty: 42 0RF fluticasone propionate 50 mcg/actuation spray,suspension 2 spray INTRANASAL DAILY Qty: 16 6RF atenolol 25 mg tablet See Rx Instructions .ROUTE .COMPLEX Qty: 90 4RF Dose Instruction: TAKE 1 TABLET BY MOUTH EVERY DAY Rx Instructions: TAKE 1 TABLET BY MOUTH EVERY DAY albuterol sulfate 90 mcg/actuation HFA aerosol inhaler 2 puff inhalation Q4H PRN PRN (Reason: Wheezing) Qty: 1 11RF Primary Care Provider: Sofy Richter Referrals: Sofy Richter DO [Primary Care Provider] - 3-5 Days Disposition Disposition: Home, Self Care What to do if you have Problems For any increased pain, shortness of breath, bleeding, nausea or vomiting, chestpain, or any unexpected problems, contact your Primary Care Provider. Call [facility] ([phone]) or report to the closest Emergency Room. Call 911 if necessary. 07/08/23 034 <Electronically signed by Ventura Baez MD> Cosigner Signature (if applicable): CC: Dr. Sofy Richter, ~ Signed [facility] Work Phone: evaluation note* Diagnosis Onset Date Resolution Status COVID-19 acute [facility] Work Phone: Evaluation note* Diagnosis Onset Date Resolution Status Asthma-COPD overlap syndrome chronic Hypoxia chronic Smoking greater than 30 pack years chronic Atherosclerosis of coronary artery of [place] heart without angina pectoris chronic Paroxysmal supraventricular tachycardia [facility] Work Phone: evaluation note* Diagnosis Onset Date Resolution Status Injury of left foot acute Strain of left foot acute [facility] Work Phone: evaluation note* Diagnosis Onset Date Resolution Status Injury of left foot acute Strain of left foot acute Diarrhea acute [facility] Work Phone: Evaluation note* Diagnosis Onset Date Resolution Status Diarrhea acute Asthma-COPD overlap syndrome [facility] Work Phone: Evaluation note* Diagnosis Onset Date Resolution Status Diarrhea acute Asthma-COPD overlap syndrome chronic Diarrhea acute Contusion of left thigh, initial encounter [facility] Work Phone: Evaluation note* Diagnosis Onset Date Resolution Status Asthma-COPD overlap syndrome chronic Diarrhea acute Contusion of left thigh, initial encounter [facility] Work Phone: Evaluation note* Diagnosis Onset Date Resolution Status Diarrhea acute Contusion of left thigh, initial encounter acute [facility] Work Phone: Evaluation note* Diagnosis Onset Date Resolution Status Atherosclerosis of coronary artery of [place] heart without angina pectoris chronic Paroxysmal supraventricular tachycardia chronic Asthma-COPD overlap syndrome chronic Smoking greater than 30 pack years chronic [facility] Work Phone: Evaluation note* Diagnosis Onset Date Resolution Status Atherosclerosis of coronary artery of [place] heart without angina pectoris chronic Paroxysmal supraventricular tachycardia chronic Asthma-COPD overlap syndrome chronic Smoking greater than 30 pack years chronic Diarrhea resolved [facility] Work Phone: Evaluation note* Diagnosis Onset Date Resolution Status Diarrhea resolved [facility] Work Phone: Evaluation noteNo assessment information available [facility] Work Phone: Reason for referral (narrative)No reason for referral information [facility]WC[facility] Work [facility]: Summary Purpose Family History No Family History Records Found Relationship Condition Age at Onset Recorded Date/T [place] mother Hypertension Unknown Pulmonary embolism Unknown Psychiatric care Unknown father Malignant neoplasm of lung Unknown grandmother Malignant neoplasm of breast Unknown sister Asthma Unknown Seizure Unknown Depression Unknown son Depression Unknown Attention deficit hy peractivity disorder (ADHD) Unknown daughter Depression Unknown Bipolar I disorder Unknown Advance Directives No Advanced Directives Records Found Advance Directive Response Recorded Date/ Time Living Will No January 28, 2022 1:32pm Power of [employer] Drill Operator No January 28 1:32pm Advance Directive Response Recorded Date/ Time Living Will No January 28, 2022 12:32pm Power of [employer] Operator No January 28 12:32pm Advance Directive Response Recorded Date/ Time Living Will No November 26 023 6:53pm Power of [employer] Operator No November 26, 2022 6:53pm Advance Directive Response Recorded Date/ Time Living Will No November 26 023 7:53pm Power of [employer] Drill Operator No November 26, 2022 7:53pm Advance Directive Response Recorded Date/ Time Living Will No June 08 3:24pm Power of [employer] Drill Operator No June 08, 2023 3:24pm Advance Directive Response Recorded Date/ Time Living Will No July 08 1:02am Power of [employer] Drill Operator No October 1st, 2 023 1:02am Advance Directive Response Recorded Date/ Time Living Will No July 08 12:02am Power of [employer] Drill Operator No July 08 023 12:02am Advance Directive Response Recorded Date/ Time Living Will No February 16, 2024 1 :33am Power of [employer] Dr[employer] Operator No February 16, 2024 1:33am Advance Directive Response Recorded Date/ Time Living Will No February 23, 2024 2 :48pm Do you have a Healthcare Power of [employer] Drill Operator? No February 23, 2024 2:48pm Living Will No September 26 024 4:09pm Do you have a Healthcare Power of [employer] Drill Operator? No September 26, 2024 4:09pm Chief Complaint and Reason for Visit Chief Complaint cough COVID 19 INFECTION COVID 19 INFECTION COVID 19 INFECTION COVID 19 INFECTION COVID 19 INFECTION chest pain Reason for Visit COVID-19 Chief Complaint FU 1 Y FU (keep w/LOPPER) Reason for Visit Asthma-COPD overlap syndrome Hypoxia Smoking greater than 30 pack years Atherosclerosis of coronary artery of [place] heart without angina pectoris Paroxysmal supraventricular tachycardia Chief Complaint COVID TEST/COUGH LT FOOT INJURY EORDER- left foot injury Reason for Visit Injury of left foot Strain of left foot Chief Complaint LT FOOT INJURY EORDER- left foot injury lungs hurt COUGH Reason for Visit Injury of left foot Strain of left foot Chief Complaint LT FOOT INJURY EORDER- left foot injury lungs hurt COUGH Consult Reason for Visit Injury of left foot Strain of left foot Diarrhea Chief Complaint COUGH Consult follow up Reason for Visit Diarrhea Asthma-COPD overlap syndrome Chief Complaint Consult follow up 3 MO FU ADD XRAY- FEMUR LEFT UPPER THIGH INJURY Reason for Visit Diarrhea Asthma-COPD overlap syndrome Diarrhea Contusion of left thigh, initial encounter Chief Complaint follow up 3 MO FU ADD XRAY- FEMUR LEFT UPPER THIGH INJURY Reason for Visit Asthma-COPD overlap syndrome Diarrhea Contusion of left thigh, initial encounter Chief Complaint 3 MO FU ADD XRAY- FEMUR LEFT UPPER THIGH INJURY L LUMBAR RADICULOPATHY/RX HERE ABD PAIN Reason for Visit Diarrhea Contusion of left thigh, initial encounter Chief Complaint 3 MO FU ADD XRAY- FEMUR LEFT UPPER THIGH INJURY ABD PAIN LABS AND XRAY L LUMBAR RADICULOPATHY/RX HERE Reason for Visit Diarrhea Contusion of left thigh, initial encounter Chief Complaint 3 MO FU ADD XRAY- FEMUR LEFT UPPER THIGH INJURY ABD PAIN LABS AND XRAY DIVERTICULITIS L LUMBAR RADICULOPATHY/RX HERE MEDICATION REACTION? Reason for Visit Diarrhea Contusion of left thigh, initial encounter Chief Complaint ABD PAIN LABS AND XRAY DIVERTICULITIS L LUMBAR RADICULOPATHY/RX HERE MEDICATION REACTION? 1 Y FU 6 M FU Reason for Visit Atherosclerosis of c oronary artery of [place] heart without angina pectoris Paroxysmal supraventricular tachycardia Asthma-COPD overlap syndrome Smoking greater than 30 pack years Chief Complaint 1 Y FU 6 M FU TOBACCO ABUSE 6 MO FU L LUMBAR RADICULOPATHY/RX HERE Reason for Visit Atherosclerosis of c oronary artery of [place] heart without angina pectoris Paroxysmal supraventricular tachycardia Asthma-COPD overlap syndrome Smoking greater than 30 pack years Diarrhea Chief Complaint TOBACCO ABUSE 6 MO FU L LUMBAR RADICULOPATHY/RX HERE Reason for Visit Diarrhea Chief Complaint L LUMBAR RADICULOPAT HY/RX HERE Chief Complaint L LUMBAR RADICULOPAT HY/RX HERE COUGH Chief Complaint ABD PAIN LABS AND XRAY DIVERTICULITIS MEDICATION REACTION? 1 Y FU 6 M FU L LUMBAR RADICULOPATHY/RX HERE TOBACCO ABUSE Reason for Visit Atherosclerosis of c oronary artery of [place] heart without angina pectoris Paroxysmal supraventricular tachycardia Asthma-COPD overlap syndrome Smoking greater than 30 pack years Chief Complaint Admit Date NICOTINE DEP September 26, 2024 3:45pm 1 Y FU W/ LOPPER PER PT October 10, 2024 1 :44pm Atherosclerotic heart disease of [place] coronary a October 27, 2024 7:07am Atherosclerotic heart disease of [place] coronary a October 27, 2024 4:57pm J44.9 - Chronic obstructive pulmonary di sease, uns November 25, 2024 12:37pm J44.9 - Chronic obstructive pulmonary di sease, uns December 01, 2024 12:08pm J44.9 - Chronic obstructive pulmonary di sease, uns December 18, 2024 1:00pm Reason for Visit Admit Date Atherosclerosis of coronary artery of [place] heart without angina pectoris October 10, 2024 1:44pm Paroxysmal supraventricular tachycardia October 10, 2024 1:44pm Chief Complaint Admit Date J44.9 - Chronic obstructive pulmonary di sease, uns December 18, 2024 1:00pm J44.9 - Chronic obstructive pulmonary di sease, uns December 18, 2024 1:08pm Follow up after testing February 09, 2025 9: 53am right ear pain February 09, 2025 10:58a m KIDNEY STONE April 13, 2025 2:00p m Reason for Visit Admit Date Asthma-COPD overlap syndrome February 09 9:53am Smoking greater than 30 pack years February 092024 9:53am Acute otitis externa of right ear February 10:58am Acute otitis media, right February 09, 2025 10:58am Chief Complaint Admit Date Follow up after testing February 09, 2025 9: 53am right ear pain February 09, 2025 10:58a m KIDNEY STONE April 13, 2025 2:00p m XRAY HAND (BILAT) & RADIUS/ ULNA ARMS (B ILAT) April 24, 2025 2:54pm Additional Source Comments INFORMATION SOURCE (unrecogn ized section and content) DATE CREATED AUTHOR 04/17/[address] [facility] ([place]) DATE CREATED AUTHOR AUTHOR'S ORGANIZ ATION 04/30/2025 [facility] Goals (unrecognized section and content) Goals may be documented in a n alternate sectionGoals may be documented in an alternate sectionGoals may be documented in an alternate sectionGoals may be documented in an alternate sectionGoals may be documented in an alternate sectionGoals may be documented in an alternate sectionGoals may be documented in an alternate sectionGoals may be documented in an alternate sectionGoals may be documented in an alternate sectionGoals may be documented in an alternate sectionGoals may be documented in an alternate sectionGoals may be documented in an alternate sectionGoals may be documented in an alternate sectionGoals may be documented in an alternate sectionGoals may be documented in an alternate sectionGoals may be documented in an alternate sectionGoals may be documented in an alternate sectionGoals may be documented in an alternate sectionGoals may be documented in an alternate section Care Teams (unrecognized sec tion and content) Team Status: Active Member Role Status Dates Dr. Sofy Richter DO Family Provider Active Dr. Sofy Richter , DO Primary Care Provider Active Team Status: Inactive Member Role Status Dates Dr. Sofy Richter , DO Primary Care Provider, Referring P rovider Active Eleno EID, PA Attending Provider Active Team Status: Inactive Member Role Status Dates Dr. Sofy Richter DO Primary Care Provider Active Eleno EID PA Attending Provider, Referring Provi chela Active Team Status: Inactive Member Role Status Dates Dr. Sofy Richter DO Primary Care Provider Active Dr. Elias Sol MD Attending Provider, Emergency Provider Active Team Status: Inactive Member Role Status Dates Dr. Sofy Richter DO Primary Care Provider Active Dr. Davon Turner , DO Emergency Provider Active Team Status: Inactive Member Role Status Dates Dr. Sofy Richter DO Primary Care Provider, Referring P rovider Active Dr. Adalid Shaw , DO Attending Provider Active Team Status: Inactive Member Role Status Dates Dr. Sofy Richter DO Primary Care Provider Active Dr. Davon Turner , DO Attending Provider, Emergency P rovider Active Team Status: Inactive Member Role Status Dates Dr. Sofy Richter DO Primary Care Provider Active Dr. Adalid Shaw , DO Attending Provider Active Team Status: Inactive Member Role Status Dates Dr. Sofy Richter DO Primary Care Provider, Referring P rovider Active Sarah Pat WAXER TENDER, WAXER TENDER-C Attending Provider Active Team Status: Inactive Member Role Status Dates Dr. Sofy Richter DO Primary Care Provider, Attending P rovider Active Team Status: Inactive Member Role Status Dates Dr. Sofy Richter DO Primary Care Provider Active Dr. Adalid Shaw , DO Attending Provider, Referring Provider Active Eleno Quintanilla PA, PA Other Provider Active Team Status: Inactive Member Role Status Dates Dr. Sofy Richter DO Primary Care Provide r, Attending Provider, Referring Provider Active Team Status: Active Member Role Status Dates Dr. Sofy Richter DO Primary Care Provide r, Attending Provider, Referring Provider Active Team Status: Inactive Member Role Status Dates Dr. Sofy Richter DO Primary Care Provider Active Dr. Ventura Baez MD Emergency Provider Active Team Status: Inactive Member Role Status Dates Dr. Sofy Richter DO Primary Care Provider Active Dr. Ventura Baez MD Attending Provider, Emergency Provi chela Active Team Status: Inactive Member Role Status Dates Dr. Sofy Richter DO Primary Care Provider, Referring P rovider Active Dr. Yamil Merino MD Attending Provider Active Team Status: Inactive Member Role Status Dates Dr. Sofy Richter DO Primary Care Provider Active Sarah Pat WAXER TENDER, WAXER TENDER-C Attending Provider, Referrin g Provider Active Team Status: Inactive Member Role Status Dates Dr. Sofy Richter DO Primary Care Provider Active Dr. Dannielle Osman MD Emergency Provider Active Team Status: Active Member Role Status Dates Dr. Sofy Richter DO Primary Care Provider Active Team Status: Inactive Member Role Status Dates Dr. Sofy Richter DO Primary Care Provider Active Start: September 18, 2024 End: September 18, 2024 Dr. Sofy Richter DO Attending Provider Active St art: September 18, 2024 End: September 18, 2024 Team Status: Inactive Member Role Status Dates Dr. Sofy Richter DO Primary Care Provider Active Start: September 26, 2024 End: September 26, 2024 Sarah Pat WAXER TENDER, WAXER TENDER-C Attending Provider Active Start: September 26, 2024 End: September 26, 2024 Sarah Pat WAXER TENDER, WAXER TENDER-C Referring Provider Active Start: September 26, 2024 End: September 26, 2024 Team Status: Inactive Member Role Status Dates Dr. Sofy Richter DO Primary Care Provider Active Start: October 03, 2024 End: October 03, 2024 Dr. Sofy Richter DO Referring Provider Active St art: October 03, 2024 End: October 03, 2024 Dr. Miguel Angel Almendarez MD Attending Provider Active Start: October 03, 2024 End: October 03, 2024 Team Status: Active Member Role Status Dates Dr. Sofy Richter DO Primary Care Provider Active Start: October 03, 2024 Dr. Sofy Richter DO Referring Provider Active St art: October 03, 2024 Dr. Miguel Angel Almendarez MD Attending Provider Active Start: October 03, 2024 Dr. Miguel Angel Almendarez MD Other Provider Active Start: October 03, 2024 Team Status: Inactive Member Role Status Dates Dr. Sofy Richter DO Primary Care Provider Active Start: October 10, 2024 End: October 10, 2024 Dr. Sofy Richter DO Referring Provider Active St art: October 10, 2024 End: October 10, 2024 Dr. Yamil Merino MD Attending Provider Active S tart: October 10, 2024 End: October 10, 2024 Team Status: Inactive Member Role Status Dates Dr. Sofy Richter DO Primary Care Provider Active Start: October 27, 2024 End: October 27, 2024 Dr. Yamil Merino MD Attending Provider Active S tart: October 27, 2024 End: October 27, 2024 Dr. Yamil Merino MD Referring Provider Active S tart: October 27, 2024 End: October 27, 2024 Team Status: Active Member Role Status Dates Dr. Sofy Richter DO Primary Care Provider Active Start: October 27, 2024 Dr. Yamil Merino MD Attending Provider Active S tart: October 27, 2024 Dr. Yamil Merino MD Referring Provider Active S tart: October 27, 2024 Dr. Yamil Merino MD Other Provider Active Start : October 27, 2024 Team Status: Inactive Member Role Status Dates Dr. Sofy Richter DO Primary Care Provider Active Start: November 25, 2024 End: November 25, 2024 Sarah Pat WAXER TENDER, WAXER TENDER-C Attending Provider Active Start: November 25, 2024 End: November 25, 2024 Sarah Pat WAXER TENDER, WAXER TENDER-C Referring Provider Active Start: November 25, 2024 End: November 25, 2024 Team Status: Active Member Role Status Dates Dr. Sofy Richter DO Primary Care Provider Active Start: December 01, 2024 Sarah Pat WAXER TENDER, WAXER TENDER-C Referring Provider Active Start: December 01, 2024 Sarah Pat WAXER TENDER, WAXER TENDER-C Other Provider Active Start: December 01, 2024 Dr. Jose Quispe DO Attending Provider Active S tart: December 01, 2024 Team Status: Inactive Member Role Status Dates Dr. Sofy Richter DO Primary Care Provider Active Start: December 18, 2024 End: December 18, 2024 Sarah Pat WAXER TENDER, WAXER TENDER-C Attending Provider Active Start: December 18, 2024 End: December 18, 2024 Sarah Pat WAXER TENDER, WAXER TENDER-C Referring Provider Active Start: December 18, 2024 End: December 18, 2024 Team Status: Active Member Role/Relationship Status Dates Dr. Sofy Richter DO Primary Care Provider Active Team Status: Inactive Member Role/Relationship Status Dates Dr. Sofy Richter DO Primary Care Provider Active Start: December 18, 2024 End: December 18, 2024 Sarah Pat WAXER TENDER, WAXER TENDER-C Attending Provider Active Start: December 18, 2024 End: December 18, 2024 Sarah aPt WAXER TENDER, WAXER TENDER-C Referring Provider Active Start: December 18, 2024 End: December 18, 2024 Team Status: Active Member Role/Relationship Status Dates Dr. Sofy Richter DO Primary Care Provider Active Start: December 18, 2024 Dr. Jose Quispe , Attending Provider Active S tart: December 18, 2024 Sarah Pat WAXER TENDER, WAXER TENDER-C Referring Provider Active Start: December 18, 2024 Team Status: Inactive Member Role/Relationship Status Dates Dr. Sofy Richter DO Primary Care Provider Active Start: February 09, 2025 End: February 09, 2025 Dr. Sofy Richter DO Referring Provider Active St art: February 09, 2025 End: February 09, 2025 Sarah Pat WAXER TENDER, WAXER TENDER-C Attending Provider Active Start: February 09, 2025 End: February 09, 2025 Team Status: Inactive Member Role/Relationship Status Dates Dr. Sofy Richter DO Primary Care Provider Active Start: February 09, 2025 End: February 09, 2025 Dr. Sofy Richter DO Referring Provider Active St art: February 09, 2025 End: February 09, 2025 Terrence Oswald PA, PA Attending Provider Active Start: February 09, 2025 End: February 09, 2025 Team Status: Inactive Member Role/Relationship Status Dates Dr. Sofy Richter DO Primary Care Provider Active Start: April 13, 2025 End: April 13, 2025 Dr. Sofy Richter DO Attending Provider Active St art: April 13, 2025 End: April 13, 2025 Dr. Sofy Richter DO Referring Provider Active St art: April 13, 2025 End: April 13, 2025 Team Status: Inactive Member Role/Relationship Status Dates Dr. Sofy Richter DO Primary Care Provider Active Start: February 09, 2025 End: February 09, 2025 Dr. Sofy Richter DO Referring Provider Active St art: February 09, 2025 End: February 09, 2025 Sarah Pat WAXER TENDER, WAXER TENDER-C Attending Provider Active Start: February 09, 2025 End: February 09, 2025 Team Status: Inactive Member Role/Relationship Status Dates Dr. Sofy Richter DO Primary Care Provider Active Start: February 09, 2025 End: February 09, 2025 Dr. Sofy Richter DO Referring Provider Active St art: February 09, 2025 End: February 09, 2025 Terrence Oswald PA, PA Attending Provider Active Start: February 09, 2025 End: February 09, 2025 Team Status: Inactive Member Role/Relationship Status Dates Dr. Sofy Richter DO Primary Care Provider Active Start: April 13, 2025 End: April 13, 2025 Dr. Sofy Richter DO Attending Provider Active St art: April 13, 2025 End: April 13, 2025 Dr. Sofy Richter DO Referring Provider Active St art: April 13, 2025 End: April 13, 2025 Team Status: Inactive Member Role/Relationship Status Dates Dr. Sofy Richter DO Primary Care Provider Active Start: April 24, 2025 End: April 24, 2025 Dr. Mikie Ku DO Attending Provider Active Start: April 24, 2025 End: April 24, 2025 Dr. Mikie Ku , Referring Provider Active Start: April 24, 2025 End: April 24, 2025 FOR RECORDS PERTAINING TO PATIENTS WHO ARE [...] BE BASED ON THE PRIMARY CLINICAL RECORDS. [employer] provides no warranty or guarantee of the accuracy or completeness of information in this document.
[2025-05-11 01:55] VITALS: BP 94/59; PULSE 60; RESP 12; TEMP 36.4; O2SAT 100
== END 2025-05-11 01:58 | disposition home or self-care (01) ==
PROVIDERS: Emergency Provider Emergency Medicine; PCP Family Medicine; Visit Provider Emergency Medicine
DX: S06.0X0A Concussion without loss of consciousness, initial encounter (principal); I50.31 Acute diastolic (congestive) heart failure; J44.9 Chronic obstructive pulmonary disease, unspecified; I25.10 Atherosclerotic heart disease of native coronary artery without angina pectoris; Z87.891 Personal history of nicotine dependence; Z79.82 Long term (current) use of aspirin; K21.9 Gastro-esophageal reflux disease without esophagitis; S05.11XA Contusion of eyeball and orbital tissues, right eye, initial encounter; W22.09XA Striking against other stationary object, initial encounter
CPT/HCPCS: 70450; 70486; 72125; 99282

== ENCOUNTER → 2025-05-22 | Outpatient (CLI) | payer MEDICAID, SELFPAY ==
--- NOTE | 2025-05-22 17:08 | RAD_ITS ---
PROCEDURE: FINGER(S) MIN 2 VIEWS 05/22/2025 REASON FOR EXAM: PAIN RT MIDDLE FINGER TECHNIQUE: FINGER(S) MIN 2 VIEWS Laterality: Right COMPARISON: April 24, 2025 FINDINGS: Bones: Normal. Joints: Normal Soft tissues: Normal Other: No foreign body RAD/Finger(s) Min 2 Views IMPRESSION: No acute abnormality Reading Location: [id number]
== END | disposition home or self-care (01) ==
LOC: RAD 17:04
PROVIDERS: PCP Family Medicine; Referring Provider Physician Assistant; Visit Provider Physician Assistant
DX: M79.644 Pain in right finger(s) (principal)
CPT/HCPCS: 73140